=== PATIENT | female | born 1985 | race Caucasian/White ===

== ENCOUNTER 2016-06-28 10:49 | Outpatient (CLI) | payer MEDICAID | END 2016-06-28 10:50 | disposition home or self-care (01) | DX: O99.352 Diseases of the nervous system complicating pregnancy, second trimester (principal); Z3A.20 20 weeks gestation of pregnancy; G93.5 Compression of brain ==

== ENCOUNTER 2016-07-01 07:39 | Outpatient (CLI) | payer MEDICAID | END 2016-07-01 07:40 | disposition home or self-care (01) | DX: Z34.82 Encounter for supervision of other normal pregnancy, second trimester (principal) ==

== ENCOUNTER 2016-07-16 19:27 | Outpatient (CLI) | payer MEDICAID ==
[2016-07-16 20:00] VITALS: BP 107/70
[2016-07-16 20:58] LABS: BILIRUBIN,URINE NEGATIVE (NEGATIVE); PH,URINE 8.5 PH (5.0-7.5)
[2016-07-16 21:06] LABS: UR CULTURE IF IND NOT INDICATED; WBC,URINE 0-3 /HPF (0-5)
== END 2016-07-16 21:14 | disposition home or self-care (01) ==
LOC: WFO 19:27 → OB 19:29 → WFO 21:14
PROVIDERS: ATTEND Obstetrics & Gynecology
DX: Z34.82 Encounter for supervision of other normal pregnancy, second trimester (principal)
CPT/HCPCS: 81001; 87086; 99213

== ENCOUNTER 2016-08-06 | Outpatient (CLI) | payer MEDICAID | END 2016-08-06 17:51 | disposition critical access hospital (66) | CPT/HCPCS: A0425; A0429 ==

== ENCOUNTER 2016-08-06 10:07 | Outpatient (CLI) | payer MEDICAID | END 2016-08-06 10:08 | disposition home or self-care (01) | DX: Z36 Encounter for antenatal screening of mother (principal) ==

== ENCOUNTER 2016-08-06 18:06 | Observation (INO) | payer MEDICAID ==
[2016-08-06] MEDS ORDERED: SODIUM CHLORIDE 0.9% 1,000 ML IV ONE (18:46)
[2016-08-06] MEDS ORDERED: ONDANSETRON 4 MG/2 ML VIAL IVP STA (18:46)
[2016-08-06] MEDS ORDERED: ONDANSETRON 4 MG/2 ML VIAL ONE (18:51)
[2016-08-06] MEDS ORDERED: METOCLOPRAMIDE 10 MG/2 ML VIAL IVP STA (19:43)
[2016-08-06] MEDS ORDERED: ACETAMINOPHEN 325 MG TABLET PO STA (19:44)
[2016-08-06] MEDS ORDERED: METOCLOPRAMIDE 10 MG/2 ML VIAL IVP ONE (19:47)
[2016-08-06] MEDS ORDERED: LACTATED RINGERS 1,000 ML IV SCH (21:00)
[2016-08-06] MEDS ORDERED: ACETAMINOPHEN 325 MG TABLET PO PRN (22:10)
[2016-08-06] MEDS ORDERED: diphenhydrAMINE 25 MG CAPSULE PO PRN ×2 (22:11→22:23)
[2016-08-06] MEDS ORDERED: diphenhydrAMINE INJ 50 MG/ML VIAL IVP SCH (22:41)
[2016-08-06] MEDS ORDERED: ONDANSETRON 4 MG/2 ML VIAL IVP SCH (23:45)
[2016-08-06] MEDS ORDERED: SODIUM CHLORIDE FLUSH 0.9% 10 ML SYRINGE IVP ONE (23:48)
== END 2016-08-07 11:00 | disposition home or self-care (01) ==
DX: O99.342 Other mental disorders complicating pregnancy, second trimester (principal); F41.0 Panic disorder [episodic paroxysmal anxiety]; F43.10 Post-traumatic stress disorder, unspecified; F32.9 Major depressive disorder, single episode, unspecified; O21.2 Late vomiting of pregnancy; Z3A.25 25 weeks gestation of pregnancy; Z63.0 Problems in relationship with spouse or partner; Z91.419 Personal history of unspecified adult abuse; Z79.899 Other long term (current) drug therapy; Z36 Encounter for antenatal screening of mother
CPT/HCPCS: 36415; 80053; 80306; 80307; 80320; 80329; 81003; 82950; 83690; 85025; 85027; 86900; 86901; 96361; 96374; 96375; 96376; 99284; 99285; A9270; G0378

== ENCOUNTER 2016-08-13 09:06 | Outpatient (CLI) | payer MEDICAID | END 2016-08-13 09:07 | disposition home or self-care (01) | DX: A49.9 Bacterial infection, unspecified (principal) ==

== ENCOUNTER 2016-08-25 11:52 | Outpatient (CLI) | payer MEDICAID | END 2016-08-25 13:55 | disposition home or self-care (01) | DX: O47.03 False labor before 37 completed weeks of gestation, third trimester (principal); Z3A.28 28 weeks gestation of pregnancy ==

== ENCOUNTER 2016-08-27 09:24 | Outpatient (CLI) | payer MEDICAID | END 2016-08-27 09:25 | disposition home or self-care (01) | DX: R82.99 Other abnormal findings in urine (principal) ==

== ENCOUNTER 2016-09-24 17:18 | Emergency (ER) | payer MEDICAID ==
[2016-09-24] MEDS ORDERED: ACETAMINOPHEN 325 MG TABLET PO STA (19:48)
[2016-09-24] MEDS ORDERED: ACETAMINOPHEN 325 MG TABLET PO ONE (19:49)
== END 2016-09-24 21:06 | disposition home or self-care (01) ==
DX: O72.2 Delayed and secondary postpartum hemorrhage (principal)
CPT/HCPCS: 36415; 85025; 86850; 86900; 86901; 87070; 99283; 99284; A9270

== ENCOUNTER 2016-10-17 14:30 | Emergency (ER) | payer MEDICAID ==
[2016-10-17] MEDS ORDERED: ONDANSETRON 4 MG/2 ML VIAL IVP STA ×2 (15:58→17:47)
[2016-10-17] MEDS ORDERED: SODIUM CHLORIDE 0.9% 1,000 ML IV ONE (15:58)
[2016-10-17] MEDS ORDERED: ONDANSETRON 4 MG/2 ML VIAL ONE ×2 (16:47→17:47)
[2016-10-17] MEDS ORDERED: ACETAMINOPHEN 1,000 MG/100 ML 100 ML IV STA (16:55)
[2016-10-17] MEDS ORDERED: ACETAMINOPHEN 1,000 MG/100 ML 100 ML IV ONE (17:11)
[2016-10-17] MEDS ORDERED: PROMETHAZINE INJ 12.5 MG in SODIUM CHLORIDE 0.9% 50 ML IV STA (18:56)
[2016-10-17] MEDS ORDERED: PROMETHAZINE 25 MG/1 ML VIAL ONE (18:59)
[2016-10-17] MEDS ORDERED: diphenhydrAMINE INJ 50 MG/ML VIAL IVP STA (19:35)
[2016-10-17] MEDS ORDERED: HYDROmorphone 1 MG/ML SYRINGE IVP STA (19:36)
[2016-10-17] MEDS ORDERED: HYDROmorphone 1 MG/ML SYRINGE ONE (19:38)
[2016-10-17] MEDS ORDERED: diphenhydrAMINE INJ 50 MG/ML VIAL ONE (19:38)
[2016-10-17] MEDS ORDERED: MAG HYDROX/AL HYDROX/SIMETH 30 ML UDC PO STA (19:47)
[2016-10-17] MEDS ORDERED: MAG HYDROX/AL HYDROX/SIMETH 30 ML UDC ONE (19:50)
== END 2016-10-17 20:06 | disposition home or self-care (01) ==
DX: R11.2 Nausea with vomiting, unspecified (principal); R10.31 Right lower quadrant pain; G93.5 Compression of brain; Z87.11 Personal history of peptic ulcer disease
CPT/HCPCS: 36415; 76801; 76817; 80053; 81001; 81025; 83690; 84702; 85025; 96365; 96375; 96376; 99283; 99284; A9270; J0131; J1170

== ENCOUNTER 2016-10-21 12:54 | Emergency (ER) | payer MEDICAID ==
[2016-10-21] MEDS ORDERED: ONDANSETRON 4 MG/2 ML VIAL IVP STA ×2 (13:31→15:26)
[2016-10-21] MEDS ORDERED: SODIUM CHLORIDE 0.9% 1,000 ML IV ONE (13:31)
[2016-10-21] MEDS ORDERED: ONDANSETRON ODT 4 MG TABLET TL STA (13:31)
[2016-10-21] MEDS ORDERED: HYDROmorphone 1 MG/ML SYRINGE IVP STA (13:31)
[2016-10-21] MEDS ORDERED: diphenhydrAMINE INJ 50 MG/ML VIAL IVP STA (13:32)
[2016-10-21] MEDS ORDERED: ONDANSETRON ODT 4 MG TABLET ONE (13:43)
[2016-10-21] MEDS ORDERED: ONDANSETRON 4 MG/2 ML VIAL ONE ×2 (13:43→15:47)
[2016-10-21] MEDS ORDERED: oxyCOD/ACETAMIN 5 MG/325 MG TABLET PO STA (15:26)
[2016-10-21] MEDS ORDERED: LIDOCAINE VISCOUS 2% 15 ML UDC MM STA (15:26)
[2016-10-21] MEDS ORDERED: MAG HYDROX/AL HYDROX/SIMETH 30 ML UDC PO STA (15:26)
[2016-10-21] MEDS ORDERED: LIDOCAINE VISCOUS 2% 15 ML UDC MM ONE (15:47)
[2016-10-21] MEDS ORDERED: oxyCOD/ACETAMIN 5 MG/325 MG TABLET PO ONE (15:47)
[2016-10-21] MEDS ORDERED: MAG HYDROX/AL HYDROX/SIMETH 30 ML UDC ONE (15:48)
== END 2016-10-21 16:45 | disposition home or self-care (01) ==
DX: R11.2 Nausea with vomiting, unspecified (principal); R10.9 Unspecified abdominal pain; F12.10 Cannabis abuse, uncomplicated; Z87.11 Personal history of peptic ulcer disease
CPT/HCPCS: 36415; 74176; 80053; 81003; 81025; 83690; 84703; 85025; 96374; 96376; 99284; A9270; Q0162

== ENCOUNTER 2016-11-01 17:44 | Outpatient (CLI) | payer MEDICAID | END 2016-11-01 17:45 | disposition short-term general hospital (02) | LOC: EMS 17:44 | PROVIDERS: ATTEND Surgery | DX: R06.00 Dyspnea, unspecified (principal) | CPT/HCPCS: A0170; A0425; A0427 ==

== ENCOUNTER 2016-11-11 17:59 | Inpatient (IN) | payer MEDICAID ==
[2016-11-11] MEDS ORDERED: SODIUM CHLORIDE 0.9% 1,000 ML IV ONE ×2 (18:26→22:05)
[2016-11-11] MEDS ORDERED: diphenhydrAMINE INJ 50 MG/ML VIAL IVP STA ×2 (18:27→21:19)
[2016-11-11] MEDS ORDERED: ONDANSETRON 4 MG/2 ML VIAL IVP STA (18:27)
[2016-11-11] MEDS ORDERED: HYDROmorphone 1 MG/ML SYRINGE IVP STA ×2 (18:27→20:49)
--- NOTE | 2016-11-11 18:31 | ED Physician Documentation ---
PD HPI ABD PAIN - Stated complaint Stated Complaint: LWR ABD PX - Chief complaint Chief Complaint: Abd Pain - History obtained from History obtained from: Patient, Friend - History of Present Illness Timing - onset: Other (30-year-old with history of perforated peptic ulcer, I saw her last month for ulcer related abdominal pain, that was much better. 10 days ago had a laparoscopic tubal ligation. 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 tablet 10/17/1607/09 mg/325 mg] Metoclopramide [Reglan] 10 mg PO Q6H PRN #20 tablet 10/21/16 Ondansetron HCl [Zofran] 4 mg PO Q6H PRN #10 tablet 10/21/16 Oxycodone HCl/Acetaminophen 1 - 2 tab PO Q4H PRN #15 tablet 10/21/16 [Percocet 5-325 mg Tablet] Sucralfate 1 gm PO ACHS #40 tablet 10/21/16 raNITIdine [Zantac] 150 mg PO BID #30 tablet 10/21/16 - Allergies Allergies/Adverse Reactions: Allergies Allergy/AdvReac Type Severity Reaction Status Date / Time aspirin Allergy Severe Anaphylaxis Verified 10/21/16 13:02 gelatin Allergy Severe Respiratory Verified 10/21/16 13:02 hydromorphone HCl * Allergy Severe Hives Verified 10/21/16 13:02 [From Dilaudid] morphine Allergy Severe Hives Verified 10/21/16 13:02 nitrofurantoin Allergy Severe Respiratory Verified 10/21/16 13:02 macrocrystalline * [From Macrobid] amoxicillin Allergy Anaphylaxis Verified 10/21/16 13:02 cinnamon Allergy Unknown Verified 10/21/16 13:02 famotidine [From Pepcid] Allergy Anaphylaxis Verified 10/21/16 13:02 fentanyl Allergy Unknown Verified 10/21/16 13:02 fluconazole Allergy Hives Verified 10/21/16 13:02 meperidine HCl * Allergy Anaphylaxis Verified 10/21/16 13:02 [From Demerol] Nitrofuran Analogues Allergy Hives Verified 10/21/16 13:02 Penicillins Allergy Anaphylaxis Verified 10/21/16 13:02 tamsulosin HCl * Allergy Unknown Verified 10/21/16 13:02 [From Flomax] tramadol Allergy Hives Verified 10/21/16 13:02 wheat Allergy Hives Verified 10/21/16 13:02 hydrocodone [Hydrocodone] AdvReac Severe Emesis Verified 10/21/16 13:02 butorphanol AdvReac Intermediate Anxiety Verified 10/21/16 13:02 adhesive AdvReac Rash Verified 10/21/16 13:02 amoxicillin trihydrate * AdvReac Unknown Verified 10/21/16 13:02 [From Augmentin] fexofenadine AdvReac Edema Verified 10/21/16 13:02 NSAIDS (Non-Steroidal AdvReac Cramps Verified 10/21/16 13:02 Anti-Inflamma potassium clavulanate * AdvReac Unknown Verified 10/21/16 13:02 [From Augmentin] - Social History Does the pt smoke?: No Smoking Status: Never smoker Does the pt drink ETOH?: No Does the pt have substance abuse?: No - Immunizations Immunizations are current?: Yes - POLST Patient has POLST: No PD ED PE NORMAL - Vitals Vital signs reviewed: Yes - General General: Alert and oriented X 3, Other (histrionic) - HEENT HEENT: PERRL, EOMI - Neck Neck: Supple, no meningeal sign, No bony TTP - Cardiac Cardiac: RRR, No murmur - Respiratory Respiratory: No respiratory distress, Clear bilaterally - Abdomen Abdomen: Soft, Other (Screaming too much to appreciate bowel tones, it is soft with lower bowel tenderness.) - Back Back: No CVA TTP, No spinal TTP - Derm Derm: Normal color, Warm and dry, No rash - Extremities Extremities: No edema, No calf tenderness / cord - Neuro Neuro: Alert and oriented X 3, No motor deficit, No sensory deficit, Normal speech Results - Vitals Vitals: Vital Signs - 24 hr 11/11/16 11/11/16 11/11/16 18:09 19:58 21:11 Temperature 36.8 C Heart Rate 129 H 125 H 120 H Respiratory 17 22 22 Rate Blood Pressure 108/68 100/69 O2 Saturation 96 98 96 11/11/16 11/11/16 21:32 22:17 Temperature Heart Rate 140 H 124 H Respiratory 18 20 Rate Blood Pressure 104/65 114/63 O2 Saturation 99 96 Oxygen O2 Source Room air - Labs Labs: Laboratory Tests 11/11/16 11/11/16 11/11/16 18:15 18:15 18:15 WBC RBC Hgb Hct MCV MCH MCHC RDW Plt Count MPV Neut # Lymph # Eagle # Eos # Baso # Absolute Nucleated RBC Nucleated RBCs Manual Slide Review WBC Morphology Platelet Estimate Platelet Morphology RBC Morph Micro Appear Sodium Potassium Chloride Carbon Dioxide Anion Gap BUN Creatinine Estimated GFR (MDRD) Glucose Calcium Total Bilirubin AST ALT Alkaline Phosphatase Total Protein Albumin Globulin Albumin/Globulin Ratio Lipase Urine Color YELLOW Urine Clarity CLEAR Urine pH 7.0 Ur Specific Kamas 1.020 1.020 Urine Protein NEGATIVE Urine Glucose (UA) NEGATIVE Urine Ketones NEGATIVE Urine Occult Blood NEGATIVE Urine Nitrite NEGATIVE Urine Bilirubin NEGATIVE Urine Urobilinogen 0.2 (NORMAL) Ur Leukocyte Esterase NEGATIVE Ur Microscopic Review NOT INDICATED Urine Culture Comments NOT INDICATED Urine HCG, Qual NEGATIVE Urine Opiates Screen POSITIVE H Ur Oxycodone Screen POSITIVE H Urine Methadone Screen NEGATIVE Ur Propoxyphene Screen NEGATIVE Ur Barbiturates Screen NEGATIVE Ur Tricyclics Screen NEGATIVE Ur Phencyclidine Scrn NEGATIVE Ur Amphetamine Screen NEGATIVE U Methamphetamines Scrn NEGATIVE U Benzodiazepines Scrn NEGATIVE Urine Cocaine Screen NEGATIVE U Cannabinoids Screen NEGATIVE 11/11/16 11/11/16 18:24 19:39 WBC 8.0 RBC 4.69 Hgb 13.0 Hct 39.9 MCV 85.0 MCH 27.8 MCHC 32.6 RDW 14.9 Plt Count FLUXER MPV 10.2 Neut # 6.4 Lymph # 1.0 L Eagle # 0.4 Eos # 0.2 Baso # 0.1 Absolute Nucleated RBC 0.01 Nucleated RBCs 0.1 Manual Slide Review Indicated WBC Morphology NORMAL APPEARANCE Platelet Estimate NORMAL (130-450,000) Platelet Morphology PLATELET CLUMPING RBC Morph Micro Appear NORMAL APPEARANCE Sodium 137 Potassium 3.9 Chloride 103 Carbon Dioxide 26 Anion Gap 8.0 BUN 10 Creatinine 0.7 Estimated GFR (MDRD) 98 Glucose 100 Calcium 9.2 Total Bilirubin 0.7 AST 17 ALT 15 Alkaline Phosphatase 49 Total Protein 7.5 Albumin 4.6 Globulin 2.9 Albumin/Globulin Ratio 1.6 Lipase 25 Urine Color Urine Clarity Urine pH Ur Specific Kamas Urine Protein Urine Glucose (UA) Urine Ketones Urine Occult Blood Urine Nitrite Urine Bilirubin Urine Urobilinogen Ur Leukocyte Esterase Ur Microscopic Review Urine Culture Comments Urine HCG, Qual Urine Opiates Screen Ur Oxycodone Screen Urine Methadone Screen Ur Propoxyphene Screen Ur Barbiturates Screen Ur Tricyclics Screen Ur Phencyclidine Scrn Ur Amphetamine Screen U Methamphetamines Scrn U Benzodiazepines Scrn Urine Cocaine Screen U Cannabinoids Screen - Rads (name of study) CT abdomen and pelvis Radiology: EMP read contemporaneously (Negative) Procedures - General procedure General procedure: Peripheral IV: She was difficult for IV access, multiple nurses tried and failed. I personally placed a 20-gauge IV in the left forearm using a U/S guidance. That promptly infiltrated and a long 20g Iv was placed R deep brachial PD MEDICAL DECISION MAKING - ED course ED course: 30-year-old woman recently status post laparoscopic tubal ligation and presents now with a histrionic panic attack and lower abdominal pain with reported fever at home. CT and labs are all normal. She remained afebrile here. She was having a lot of anxiety symptoms which were helped with Benadryl. She has an IV contrast allergy which was pretreated with Benadryl as well, that has been done before in the past without issue. On returning she does have itching and felt like she needed epinephrine and this was administered. There was no oral pharyngeal angioedema on exam at that time. Note madeThat she is persistently and significantly tachycardic and despite an otherwise normal workup; this is concerning. The tachycardia did not respond IV fluids. Call to Dr. Holliday, the hospitalist for observation at 1015 p.m. She requested that we have a surgical consult given abd pain- I spoke with Dr Velasco who was in the OR apprx 1030pm, and he said he would see the pt. Departure - Departure Disposition: ED Place in Observation Clinical Impression: Abdominal pain, Tachycardia Condition: Stable Discharge Date/Time: 11/11/16 23:40
[2016-11-11 18:37] LABS: BILIRUBIN,URINE NEGATIVE (NEGATIVE)
[2016-11-11 18:40] LABS: UA CHARGE (STRIP ONLY) YES; UR CULTURE IF IND NOT INDICATED
[2016-11-11 18:50] LABS: HCG UR QUAL NEGATIVE
[2016-11-11] MEDS ORDERED: diphenhydrAMINE INJ 50 MG/ML VIAL ONE ×2 (19:31→21:22)
[2016-11-11] MEDS ORDERED: HYDROmorphone 1 MG/ML SYRINGE ONE ×2 (19:31→20:49)
[2016-11-11] MEDS ORDERED: ONDANSETRON 4 MG/2 ML VIAL ONE (19:31)
[2016-11-11 19:42] LABS: BASOPHILS # (AUTO) 0.1 10^3/uL (0.0-0.1); BASOPHILS % (AUTO) 0.8 %; EOSINOPHILS # (AUTO) 0.2 10^3/uL (0.0-0.7); EOSINOPHILS % (AUTO) 2.2 %; HCT - HEMATOCRIT 39.9 % (37.0-47.0); LYMPHOCYTES % (AUTO) 12.1 %; MEAN CORPUSCULAR HEMOGLOBIN 27.8 pg (27.0-31.0); MEAN CORPUSCULAR HGB CONC 32.6 g/dL (32.0-36.0); MONOCYTES # (AUTO) 0.4 10^3/uL (0.0-1.0); MONOCYTES % (AUTO) 5.1 %; NEUTROPHILS # (AUTO) 6.4 10^3/uL (1.5-6.6); NEUTROPHILS % (AUTO) 79.8 %; NUCLEATED RED BLOOD CELLS AUTO 0.1 /100WBC; RED BLOOD COUNT 4.69 10^6/uL (4.20-5.40); RED CELL DISTRIBUTION WIDTH 14.9 % (12.0-15.0)
[2016-11-11 20:27] LABS: ALBUMIN/GLOBULIN RATIO 1.6 (1.0-2.2); BILIRUBIN,TOTAL 0.7 mg/dL (0.2-1.0); CALCIUM 9.2 mg/dL (8.5-10.3); CREATININE 0.7 mg/dL (0.4-1.0); POTASSIUM 3.9 mmol/L (3.5-5.0); TOTAL PROTEIN 7.5 g/dL (6.7-8.2)
[2016-11-11 20:45] LABS: PLATELET MORPHOLOGY PLATELET CLUMPING (NORMAL)
[2016-11-11 20:47] LABS: MEAN PLATELET VOLUME 10.2 fL (7.9-10.8)
[2016-11-11] MEDS ORDERED: IOPAMIDOL-300 100 ML VIAL IVP ONE (20:47)
[2016-11-11 20:48] LABS: PLATELET ESTIMATE, MANUAL NORMAL (130-450,000) (NORMAL); WBC MORPHOLOGY (MULTIPLE) NORMAL APPEARANCE (NORMAL)
[2016-11-11] MEDS ORDERED: A & D OINTMENT 5 GM PACKET TOP ONE (20:55)
[2016-11-11] MEDS ORDERED: LORazepam 2 MG/ML SYRINGE IVP STA (21:02)
[2016-11-11] MEDS ORDERED: LORazepam 2 MG/ML SYRINGE ONE (21:04)
--- NOTE | 2016-11-11 21:05 | CT Preliminary Report ---
Exam: CT Abdomen/Pelvis W/ IMPRESSION: Postoperative changes of tubal ligation. No evidence of bowel obstruction or perforation. No hydronephrosis. [facility] SITE ID: [id number]
--- NOTE | 2016-11-11 21:07 | CT Report ---
EXAM: CT ABDOMEN AND PELVIS EXAM DATE: 11/11/2016 08:50 PM. CLINICAL HISTORY: IV only, low abd pain, 10 days s/p lab tubal. COMPARISONS: 10/21/2016. TECHNIQUE: Routine helical CT imaging was performed through the abdomen and pelvis. IV contrast: 100 mL Isovue 300. Enteric contrast: No. Reconstructions: Coronal and sagittal. In accordance with CT protocol optimization, one or more of the following dose reduction techniques w ere utilized for this exam: automated exposure control, adjustment of mA and/or KV based on patient s ize, or use of iterative reconstructive technique. FINDINGS: Lung Bases: Unremarkable. Liver: Normal. No masses. Gallbladder/Bile Ducts: Unremarkable. Spleen: Normal. Pancreas: Normal. Adrenal Glands: Normal. Kidneys: Bilateral cortical cysts. No hydronephrosis or nephrolithiasis. Peritoneal Cavity/Bowel: Normal. No free fluid, free air or adenopathy. No masses or acute inflammato ry process. Pelvic Organs: Tubal ligation clips are new from previous. 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 No pelvic adenopathy or free fluid is present. Vasculature: No aneurysms or other significant abnormality. Bones: No significant abnormality. Other: None. IMPRESSION: Postoperative changes of tubal ligation. No evidence of bowel obstruction or perforation. No hydronephrosis. [facility] Referring Provider Line: [phone] SITE ID: [id number]
[2016-11-11] MEDS ORDERED: EPINEPHrine 1 MG/ML AMP IM STA (21:19)
[2016-11-11] MEDS ORDERED: EPINEPHrine 1 MG/ML AMP ONE (21:22)
[2016-11-11] MEDS ORDERED: SODIUM CHLORIDE FLUSH 0.9% 10 ML SYRINGE IVP PRN (22:35)
[2016-11-11] MEDS ORDERED: ACETAMINOPHEN 325 MG TABLET PO PRN (22:35)
[2016-11-11] MEDS ORDERED: METOCLOPRAMIDE 10 MG TABLET PO PRN (22:51)
[2016-11-12] MEDS: SODIUM CHLORIDE 0.9% 1,000 ML IV SCH ×2 (01:38→12:41)
[2016-11-12] MEDS: oxyCOD/ACETAMIN 5 MG/325 MG TABLET PO PRN ×3 (01:38→12:14)
[2016-11-12] MEDS: ONDANSETRON 4 MG/2 ML VIAL IVP PRN ×2 (01:38→07:38)
[2016-11-12] MEDS: DICYCLOMINE 10 MG CAPSULE PO SCH ×4 (01:38→21:10)
[2016-11-12] MEDS: SUCRALFATE 1 GM/10 ML UDC PO SCH ×5 (01:52→21:10)
[2016-11-12 06:06] LABS: BASOPHILS % (AUTO) 0.7 %; EOSINOPHILS % (AUTO) 0.8 %; HCT - HEMATOCRIT 34.8 % (37.0-47.0); HGB - HEMOGLOBIN 11.3 g/dL (12.0-16.0); LYMPHOCYTES # (AUTO) 0.7 10^3/uL (1.5-3.5); LYMPHOCYTES % (AUTO) 14.9 %; MEAN CORPUSCULAR HEMOGLOBIN 27.8 pg (27.0-31.0); MEAN CORPUSCULAR HGB CONC 32.5 g/dL (32.0-36.0); MEAN CORPUSCULAR VOLUME 85.6 fL (81.0-99.0); MONOCYTES # (AUTO) 0.5 10^3/uL (0.0-1.0); MONOCYTES % (AUTO) 9.8 %; NEUTROPHILS # (AUTO) 3.4 10^3/uL (1.5-6.6); NEUTROPHILS % (AUTO) 73.8 %; NUCLEATED RED BLOOD CELLS AUTO 0.2 /100WBC; RED BLOOD COUNT 4.06 10^6/uL (4.20-5.40); RED CELL DISTRIBUTION WIDTH 15.1 % (12.0-15.0); UNCORRECTED WHITE BLOOD COUNT 4.6 x10^3/uL; WHITE BLOOD COUNT 4.6 x10^3/uL (4.8-10.8)
[2016-11-12 06:08] LABS: ALBUMIN/GLOBULIN RATIO 1.4 (1.0-2.2); BILIRUBIN,TOTAL 0.7 mg/dL (0.2-1.0); CALCIUM 8.2 mg/dL (8.5-10.3); CREATININE 0.6 mg/dL (0.4-1.0); POTASSIUM 3.7 mmol/L (3.5-5.0); TOTAL PROTEIN 5.9 g/dL (6.7-8.2)
--- NOTE | 2016-11-12 06:29 | HISTORY & PHYSICAL EXAMINATION ---
DATE OF ADMISSION: 11/11/2016 CHIEF COMPLAINT: Diffuse abdominal pain, intractable. HISTORY OF PRESENT ILLNESS: A 30-year-old female who is status post tubal ligation at [facility] about 10 days ago, laparoscopic. She has been having lower abdominal pain since that period of ti me with some nausea, has some vomiting, complains of fevers up to 102 degrees prior to admission. Den ies any chills. Also found to be tachycardic; however, pain is described as 8/10. She has a history o f appendectomy, status post tonsillectomy. Her primary care provider is none. Her evaluation in the emergency room includes CT of abdomen and pelvis which reveals postoperative ch anges tubal ligation, no evidence of bowel obstruction or perforation, no hydronephrosis noted. This was done with IV contrast only. Urine hCG is negative. UA does not reveal any acute abnormalities. Wh ite count is noted to be 8.0, with hematocrit of 39.9. Patient is a difficult historian due to her cr brannon in pain. PAST MEDICAL HISTORY: History of perforated peptic ulcer. History of laparoscopic tubal ligation 10 d ays ago. History of endometriosis. Status post appendectomy. Status post tonsillectomy. MEDICATIONS UPON ADMISSION 1. EpiPen 2 pack. 2. Omeprazole 20 mg p.o. daily. 3. Ondansetron 4 mg p.r.n. 4. Percocet 5/325 one to two tabs p.o. q.4h. p.r.n. 5. Reglan 10 mg p.o. q.i.d. 6. Sucralfate 1 gram p.o. q.i.d. 7. Ranitidine 150 mg p.o. b.i.d. ALLERGIES 1. ASPIRIN. 2. GELATIN. 3. HYDROMORPHONE. 4. MORPHINE. 5. MACROBID. 6. AMOXICILLIN. 7. CINNAMON. 8. FAMOTIDINE. 9. FENTANYL. 10. FLUCONAZOLE. 11. MEPERIDINE. 12. PENICILLIN. 13. FLOMAX. 14. TRAMADOL. 15. WHEAT. 16. HYDROCODONE. 17. BUTORPHANOL. 18. ADHESIVE. 19. FEXOFENADINE. 20. NSAIDS. REVIEW OF SYSTEMS: All other review of systems are reviewed and are negative except for as in HPI. FAMILY MEDICAL HISTORY: Asked and no history of abdominal issues. SOCIAL HISTORY: Smoking, none. Alcohol, None. PHYSICAL EXAMINATION VITAL SIGNS: Heart rate 124, blood pressure 114/63, respiratory rate 20, room air saturation 96%. CONSTITUTIONAL: A tearful female who appears in some pain distress. HEAD: Normocephalic, atraumatic. EYES: PERRLA-DC, EOMI. MOUTH: No lesions. NECK: No adenopathy. CHEST: Clear to auscultation. COR: Tachycardic. S1, S2 without murmur. ABDOMEN: Soft. There is diffuse tenderness. No rebound, no guarding noted. Bowel sounds are present. EXTREMITIES: No pedal edema. SKIN: No rashes. PSYCHIATRIC: The patient is anxious and tearful. NEUROLOGIC: Alert and oriented x3. Motor strength is intact bilaterally. LABORATORIES: As above, also to include white count 8.0, hematocrit 39.9, hemoglobin 13.0, platelets had clumping, 6.4 neutrophils. Urine tox is pending. Sodium 137, potassium 3.9, chloride 103, bicarbo ioana 26, BUN 10, creatinine 0.7, calculated GFR 98, glucose 100, calcium 9.2. Total bilirubin 0.7, T 17, ALT 15. Alkaline phosphatase 49, total protein 7.5, albumin 4.6, lipase 25. ASSESSMENT AND PLAN 1. Intractable abdominal pain, status post recent tubal ligation 10 days ago at [facility]. Recommend General Surgery consultation and/or Gynecology consultation, as unclear source of intractab le abdominal pain. Will give Zofran p.r.n. Will do Percocet p.r.n. Patient has significant allergies to multiple medications. Will recheck labs in a.m. and try Bentyl q.i.d. p.r.n. Monitor for fevers wh ile here. 2. Deep venous thrombosis prophylaxis. Will hold on subcutaneous anticoagulation pending General Armando tu consultation. TIME SPENT: 60 minutes. JOB #: [id number] EXT JOB #:[id number]
[2016-11-12] MEDS: SODIUM CHLORIDE FLUSH 0.9% 10 ML SYRINGE IVP SCH ×3 (06:38→21:11)
[2016-11-12] MEDS: PANTOPRAZOLE 40 MG TABLET PO SCH (06:41)
[2016-11-12] MEDS ORDERED: fentaNYL 100 MCG/2 ML VIAL IVP PRN (10:00)
[2016-11-12] MEDS: diphenhydrAMINE INJ 50 MG/ML VIAL IVP SCH ×3 (10:04→21:10)
--- NOTE | 2016-11-12 11:13 | Ultrasound Report ---
ABDOMINAL ULTRASOUND: 11/12/2016 TECHNIQUE: Real-time scanning was performed with novelties sales representative static images obtained. FINDINGS: Liver appears normal. Liver length is 16.8 cm. Portal vein shows normal hepatopetal flow . There is a small amount of noncomplex fluid noted immediately posterior to the gallbladder. Gallb ladder demonstrates some mild nonspecific thickening of its posterior wall. Posterior wall of the ga llbladder measures 5 mm and is mildly hyperechoic. These findings of fluid adjacent to the gallbladd er as well as mild gallbladder wall thickening without evidence of gallbladder calculi are nonspecifi c. If there is strong clinical concern in regard to developing acalculousacalculous cholecystitis, a dditional studies that could be obtained include a HIDA nuclear medicine scan with ejection fraction and/or a repeat gallbladder ultrasound in 24-48 hours. HIDA nuclear medicine scan with ejection frac tion can be falsely positive in postoperative patients on pain medication. Common bile duct measures 3.8 mm. This is within normal limits. Pancreas appears normal. Right kidney measures 10.7 cm in length. Left kidney measures 10 cm in length. Right kidney shows n o pyelocaliceal cyst and dilatation. Left kidney demonstrates some minimal dilatation of its pyeloca liceal system. This is a nonspecific finding. On yesterday's CT exam of the abdomen and pelvis, there was no significant ureteral dilatation and on ly minor dilatation of the left pyelocaliceal system. The patient in retrospect did have a 2 mm calc ulus noted adjacent to the inferior pole calyx of the left kidney. Spleen is within normal limits. Pelvis shows no free fluid. Uterus shows no fluid within its central intrauterine cavity. On axial images of the uterus, there appears to be two central intrauterine cavities at least in the mid to fu ndal area which suggests the possibility of a septated uterus. No enhanced vascular flow is seen in the myometrium or endometrium of the uterus. IMPRESSION: 1. SMALL AMOUNT OF FREE FLUID IS NOTED SILHOUETTING THE POSTERIOR WALL OF THE GALLBLADDER. THE POST ERIOR WALL OF THE GALLBLADDER SHOWS MILD THICKENING. NO GALLBLADDER CALCULI ARE SEEN. THESE FINDING S ARE NONSPECIFIC. IF THERE IS STRONG CLINICAL CONCERN IN REGARD TO DEVELOPING ACALCULOUS CHOLECYSTI TIS, ADDITIONAL STUDIES SUCH A HIDA NUCLEAR MEDICINE SCAN WITH EJECTION FRACTION AND/OR REPEAT GAL LBLADDER ULTRASOUND IN 24-48 HOURS COULD BE OBTAINED FOR FURTHER EVALUATION. IT SHOULD BE NOTED THAT HIDA NUCLEAR MEDICINE SCAN WITH EJECTION FRACTION CAN HAVE A FALSE POSITIVE EJECTION FRACTION IN POS TOPERATIVE PATIENTS ON PAIN MEDICATION. 2. CONFIGURATION OF THE UTERUS SUGGESTS A DEVELOPMENTAL ANOMALY OF AN ARCUATE OR SEPTATED UTERUS. JOB #: [id number] EXT JOB #:[id number]
[2016-11-12] MEDS: POLYETHYLENE GLYCOL 3350 17 GM PACKET PO SCH (12:15)
--- NOTE | 2016-11-12 12:20 | PROVIDER PROGRESS NOTE ---
Assessment/Plan - Problem List (1) Abdominal pain Assessment/Plan: 30 yo female with abdominal pain worse in suprapubic/groin area exact etiology not clear 1. Recommend [employer] consult for possible [employer] origin- recent tubal ligation, hx of endometriosis 2. Recommend HIDA scan for US findings of possible acalculous cholecystitis and radiology recommends possibly repeat US in 48 hours Medical management as per primary care team Surgery will continue to follow - Current Meds Current Meds: Current Medications Generic Name Dose Route Start Last Admin Trade Name Freq PRN Reason Stop Dose Admin Dicyclomine HCl 10 mg 11/11/16 23:00 11/12/16 11:25 Bentyl PO Not Given QID SAMANTA Diphenhydramine HCl 25 mg 11/12/16 10:00 11/12/16 10:04 Benadryl Inj IVP 25 mg Q6H SAMANTA Administration Sodium Chloride 1,000 mls @ 100 mls/hr 11/11/16 23:00 11/12/16 01:38 Normal Saline 0.9% IV 100 mls/hr .Q10H SAMANTA Administration Ondansetron HCl 4 mg 11/11/16 22:35 11/12/16 07:38 Zofran Inj IVP 4 mg Q6HR PRN Administration Nausea / Vomiting Oxycodone/Acetaminophen 1 tab 11/11/16 22:51 11/12/16 07:38 Percocet 5 Mg/325 Mg PO 1 tab Q4H PRN Administration PAIN Pantoprazole Sodium 40 mg 11/12/16 07:00 11/12/16 06:41 Protonix PO 40 mg QDAC SAMANTA Administration Ranitidine HCl 150 mg 11/11/16 23:00 11/12/16 01:38 Zantac PO 150 mg BID SAMANTA Administration Sodium Chloride 10 ml 11/11/16 22:35 11/12/16 01:39 Normal Saline Flush 0.9% IVP 10 ml PRN PRN Administration NEEDED PER PROVIDER ORDERS Sodium Chloride 10 ml 11/12/16 06:00 11/12/16 11:25 Normal Saline Flush 0.9% IVP Not Given Q8HR SAMANTA Sucralfate 1 gm 11/11/16 23:00 11/12/16 06:41 Carafate PO 1 gm ACHS SAMANTA Administration - Lab Result Fish Bone Diagrams: 11/12/16 05:22 11/12/16 05:22 - Diagnostic Imaging Results Diagnostic Imaging Results: positive: Prelim report reviewed (11/12/16 US showed smal amount of PCCF, and mild posterior wall thickness, no stones noted, CBD 3.8mm. 2. Arcuate or Septated uterus) - Additional Planning Condition/Complexity: Guarded Plan Discussed with:: Patient Time Spent: 15-30 minutes Subjective - Subjective Patient Reports: Abdominal Pain (Patient seen at bedside. C/O of B/Lsuprapubic / groin pain and left LLQ pain. she states the pain medication is helping somewhat, and that she can't keep anything down. No othe revents reported) Nursing Reports: No Complaints Objective Vital Signs: Vital Signs - 24 hr 11/11/16 11/12/16 11/12/16 23:29 00:13 04:35 Temperature 37.1 C 36.6 C Heart Rate 121 H Heart Rate [ Brachial] Heart Rate [ 118 H 83 Radial] Respiratory 24 24 18 Rate Blood Pressure 120/69 Blood Pressure 103/71 95/60 [Left Brachial artery] O2 Saturation 100 98 96 11/12/16 11/12/16 08:06 12:02 Temperature 36.9 C 36.5 C Heart Rate Heart Rate [ 82 73 Brachial] Heart Rate [ Radial] Respiratory 19 18 Rate Blood Pressure Blood Pressure 91/45 L 96/65 [Left Brachial artery] O2 Saturation 97 97 Oxygen O2 Source Room air I&O (Last 24 Hrs): Intake and Output Totals x24h 11/10/16 11/11/16 11/12/16 23:59 23:59 23:59 Intake Total 489 Output Total 550 Balance -61 General: Alert, Oriented x3 HEENT: Atraumatic Neck: Supple Neuro: Alert Cardiovascular: Regular rate Respiratory: Chest non-tender, No respiratory distress, Breath sounds nml Abdomen: Normal bowel sounds (+ BS, soft Non-distended, no rebound, no guarding. TTP suprapubic area and LLQ. Negative Bernal's. Negative Heel Jar test.), Soft Extremities: No clubbing - Results Results: Laboratory Results WBC 4.6 x10^3/uL (4.8-10.8) L 11/12/16 05:22 RBC 4.06 10^6/uL (4.20-5.40) L 11/12/16 05:22 Hgb 11.3 g/dL (12.0-16.0) L 11/12/16 05:22 Hct 34.8 % (37.0-47.0) L 11/12/16 05:22 MCV 85.6 fL (81.0-99.0) 11/12/16 05:22 MCH 27.8 pg (27.0-31.0) 11/12/16 05:22 MCHC 32.5 g/dL (32.0-36.0) 11/12/16 05:22 RDW 15.1 % (12.0-15.0) H 11/12/16 05:22 Plt Count 199 10^3/uL (130-450) 11/12/16 05:22 MPV 10.0 fL (7.9-10.8) 11/12/16 05:22 Neut # 3.4 10^3/uL (1.5-6.6) 11/12/16 05:22 Lymph # 0.7 10^3/uL (1.5-3.5) L 11/12/16 05:22 [place] # 0.5 10^3/uL (0.0-1.0) 11/12/16 05:22 Eos # 0.0 10^3/uL (0.0-0.7) 11/12/16 05:22 Baso # 0.0 10^3/uL (0.0-0.1) 11/12/16 05:22 Absolute Nucleated RBC 0.01 x10^3/uL 11/12/16 05:22 Nucleated RBCs 0.2 /100WBC 11/12/16 05:22 Manual Slide Review Indicated 11/11/16 18:24 WBC Morphology NORMAL APPEARANCE (NORMAL) 11/11/16 18:24 Platelet Estimate NORMAL (130-450,000) (NORMAL) 11/11/16 18:24 Platelet Morphology PLATELET CLUMPING (NORMAL) 11/11/16 18:24 RBC Morph Micro Appear NORMAL APPEARANCE (NORMAL) 11/11/16 18:24 Sodium 139 mmol/L (135-145) 11/12/16 05:22 Potassium 3.7 mmol/L (3.5-5.0) 11/12/16 05:22 Chloride 108 mmol/L (101-111) 11/12/16 05:22 Carbon Dioxide 25 mmol/L (21-32) 11/12/16 05:22 Anion Gap 6.0 (6-13) 11/12/16 05:22 BUN 5 mg/dL (6-20) L 11/12/16 05:22 Creatinine 0.6 mg/dL (0.4-1.0) 11/12/16 05:22 Estimated GFR (MDRD) 117 (>89) 11/12/16 05:22 Glucose 94 mg/dL (70-100) 11/12/16 05:22 Calcium 8.2 mg/dL (8.5-10.3) L 11/12/16 05:22 Total Bilirubin 0.7 mg/dL (0.2-1.0) 11/12/16 05:22 AST 13 IU/L (10-42) 11/12/16 05:22 ALT 12 IU/L (10-60) 11/12/16 05:22 Alkaline Phosphatase 42 IU/L (42-121) 11/12/16 05:22 Total Protein 5.9 g/dL (6.7-8.2) L 11/12/16 05:22 Albumin 3.4 g/dL (3.2-5.5) 11/12/16 05:22 Globulin 2.5 g/dL (2.1-4.2) 11/12/16 05:22 Albumin/Globulin Ratio 1.4 (1.0-2.2) 11/12/16 05:22 Lipase 25 U/L (22-51) 11/11/16 19:39 Urine Color YELLOW 11/11/16 18:15 Urine Clarity CLEAR (CLEAR) 11/11/16 18:15 Urine pH 7.0 PH (5.0-7.5) 11/11/16 18:15 Ur Specific [place] 1.020 (1.002-1.030) 11/11/16 18:15 Urine Protein NEGATIVE mg/dL (NEGATIVE) 11/11/16 18:15 Urine Glucose (UA) NEGATIVE mg/dL (NEGATIVE) 11/11/16 18:15 Urine Ketones NEGATIVE mg/dL (NEGATIVE) 11/11/16 18:15 Urine Occult Blood NEGATIVE (NEGATIVE) 11/11/16 18:15 Urine Nitrite NEGATIVE (NEGATIVE) 11/11/16 18:15 Urine Bilirubin NEGATIVE (NEGATIVE) 11/11/16 18:15 Urine Urobilinogen 0.2 (NORMAL) E.U./dL (NORMAL) 11/11/16 18:15 Ur Leukocyte Esterase NEGATIVE (NEGATIVE) 11/11/16 18:15 Ur Microscopic Review NOT INDICATED 11/11/16 18:15 Urine Culture Comments NOT INDICATED 11/11/16 18:15 Urine HCG, Qual NEGATIVE 11/11/16 18:15 Urine Opiates Screen POSITIVE (NEGATIVE) H 11/11/16 18:15 Ur Oxycodone Screen POSITIVE (NEGATIVE) H 11/11/16 18:15 Urine Methadone Screen NEGATIVE (NEGATIVE) 11/11/16 18:15 Ur Propoxyphene Screen NEGATIVE (NEGATIVE) 11/11/16 18:15 Ur Barbiturates Screen NEGATIVE (NEGATIVE) 11/11/16 18:15 Ur Tricyclics Screen NEGATIVE (NEGATIVE) 11/11/16 18:15 Ur Phencyclidine Scrn NEGATIVE (NEGATIVE) 11/11/16 18:15 Ur Amphetamine Screen NEGATIVE (NEGATIVE) 11/11/16 18:15 U Methamphetamines Scrn NEGATIVE (NEGATIVE) 11/11/16 18:15 U Benzodiazepines Scrn NEGATIVE (NEGATIVE) 11/11/16 18:15 Urine Cocaine Screen NEGATIVE (NEGATIVE) 11/11/16 18:15 U Cannabinoids Screen NEGATIVE (NEGATIVE) 11/11/16 18:15 Ethyl Alcohol < 5.0 mg/dL 11/12/16 00:00 - Procedures Procedures: Procedures INSERTION OF ENDOTRACHEAL AIRWAY INTO TRACHEA, VIA OPENING (03/06/16) LAPAROSCOP LYSIS-PERITONEAL ADHES (07/14/13) LAPAROSCOP LYSIS-PERIVESICAL ADHES (07/14/13) OTH METATARS/TARS INCIS (05/05/14) OTHER ENDOSCOPY OF SM INTEST (04/02/13) OTHER PLASTIC OPS TENDON (05/05/14) RELEASE PERITONEUM, PERCUTANEOUS ENDOSCOPIC APPROACH (03/06/16) REMOVAL IUD (11/04/12) RESPIRATORY VENTILATION, LESS THAN 24 CONSECUTIVE HOURS (03/06/16)
--- NOTE | 2016-11-12 12:23 | PROVIDER PROGRESS NOTE ---
Subjective - Prog Note Date Prog Note Date: 11/12/16 (followup for pelvic and abdominal pain) Prog Note Time: 12:22 - Subjective Pt reports feeling: Worse Subjective: Patient seen at bedside. She continues to have diffuse abdominal pain 9/10 with vomiting and nausea. She is having chills and sweating. She recently had a tubal ligation 10 days ago in [place] and now comes in with diffuse abdominal pain and uncontrollable nausea and vomiting. She takes percocet for the pain. She has been coming to the ER for pain medication x 3 since the of her son 2 months ago. She admits that she comes in to get pain medication when she runs out. She has been out for a couple days. She denies chest pain or shortness of breath. She admits to vomiting, nausea and abdominal pain. She denies hematuria or dysuria. She has anxiety and tremors. She is receiving IVF NS at this time Current Medications - Current Medications Current Medications: Active Medications Generic Name Dose Route Start Last Admin Trade Name Freq PRN Reason Stop Dose Admin Acetaminophen 650 mg 11/11/16 22:35 Tylenol PO Q4HR PRN Pain 1 to 4 Dicyclomine HCl 10 mg 11/11/16 23:00 11/12/16 12:15 Bentyl PO 10 mg QID SAMANTA Administration Diphenhydramine HCl 25 mg 11/12/16 10:00 11/12/16 17:00 Benadryl Inj IVP 25 mg Q6H SAMANTA Administration Sodium Chloride 1,000 mls @ 100 mls/hr 11/11/16 23:00 11/12/16 12:41 Normal Saline 0.9% IV 100 mls/hr .Q10H SAMANTA Administration Promethazine HCl 25 mg/ Sodium 51 mls @ 100 mls/hr 11/12/16 13:27 11/12/16 17: 00 Chloride IV 100 mls/hr Q6H PRN Administration Nausea / Vomiting Metoclopramide HCl 10 mg 11/11/16 22:51 Reglan PO Q6H PRN Nausea / Vomiting Ondansetron HCl 4 mg 11/11/16 22:35 11/12/16 07:38 Zofran Inj IVP 4 mg Q6HR PRN Administration Nausea / Vomiting Oxycodone/Acetaminophen 1 tab 11/11/16 22:51 11/12/16 12:14 Percocet 5 Mg/325 Mg PO 1 tab Q4H PRN Administration PAIN Pantoprazole Sodium 40 mg 11/12/16 07:00 11/12/16 06:41 Protonix PO 40 mg QDAC SAMANTA Administration Polyethylene Glycol 17 gm 11/12/16 09:00 11/12/16 12:15 Miralax PO Not Given DAILY SAMANTA Ranitidine HCl 150 mg 11/11/16 23:00 11/12/16 12:15 Zantac PO 150 mg BID SAMANTA Administration Sodium Chloride 10 ml 11/11/16 22:35 11/12/16 01:39 Normal Saline Flush 0.9% IVP 10 ml PRN PRN Administration NEEDED PER PROVIDER ORDERS Sodium Chloride 10 ml 11/12/16 06:00 11/12/16 11:25 Normal Saline Flush 0.9% IVP Not Given Q8HR SAMANTA Sucralfate 1 gm 11/11/16 23:00 11/12/16 17:00 Carafate PO 1 gm ACHS SAMANTA Administration Sucralfate 1 gm PO AC 11/12/16 Objective - Vital Signs/Intake & Output Reviewed Vital Signs: Yes Vital Signs: Vital Signs x48h Temp Pulse Pulse Resp BP Pulse Ox 11/12/16 12:02 36.5 C 73 18 96/65 97 11/12/16 08:06 36.9 C 82 19 91/45 L 97 11/12/16 04:35 36.6 C 83 18 95/60 96 Intake & Output: Intake & Output 11/09/16 11/10/16 11/11/16 11/12/16 23:59 23:59 23:59 23:59 Intake Total 489 Output Total 550 Balance -61 - Objective General Appearance: positive: Alert, Mild distress, Anxious Eyes Bilateral: positive: PERRL ENT: positive: Pharynx nml, Dry mucous membranes Neck: positive: Thyroid nml, No JVD, Trachea midline Respiratory: positive: No respiratory distress, Breath sounds nml Cardiovascular: positive: No murmur, No gallop, Tachycardia. negative: JVD present Peripheral Pulses: 2+ Radial (R), 2+ Radial (L) Abdomen: positive: No organomegaly, Tenderness, Guarding, Rebound Rectal: negative: Black stool Back: negative: CVA tenderness (R), CVA tenderness (L) Skin: positive: Color nml, No rash, Warm, Dry Extremities: positive: Full ROM, Nml appearance Neurologic/Psychiatric: positive: CN's nml (2-12), Motor nml, Sensation nml - Lab Results Fish Bones: 11/12/16 05:22 11/12/16 05:22 Other Labs: Lab Results x24hrs 11/12/16 11/12/16 11/12/16 Range/Units 05:22 05:22 00:00 WBC 4.6 L (4.8-10.8) x10^3/uL RBC 4.06 L (4.20-5.40) 10^6/uL Hgb 11.3 L (12.0-16.0) g/dL Hct 34.8 L (37.0-47.0) % MCV 85.6 (81.0-99.0) fL MCH 27.8 (27.0-31.0) pg MCHC 32.5 (32.0-36.0) g/dL RDW 15.1 H (12.0-15.0) % Plt Count 199 (130-450) 10^3/uL MPV 10.0 (7.9-10.8) fL Neut # 3.4 (1.5-6.6) 10^3/uL Lymph # 0.7 L (1.5-3.5) 10^3/uL [place] # 0.5 (0.0-1.0) 10^3/uL Eos # 0.0 (0.0-0.7) 10^3/uL Baso # 0.0 (0.0-0.1) 10^3/uL Absolute Nucleated RBC 0.01 x10^3/uL Nucleated RBCs 0.2 /100WBC Sodium 139 (135-145) mmol/L Potassium 3.7 (3.5-5.0) mmol/L Chloride 108 (101-111) mmol/L Carbon Dioxide 25 (21-32) mmol/L Anion Gap 6.0 (6-13) BUN 5 L (6-20) mg/dL Creatinine 0.6 (0.4-1.0) mg/dL Estimated GFR (MDRD) 117 (>89) Glucose 94 (70-100) mg/dL Calcium 8.2 L (8.5-10.3) mg/dL Total Bilirubin 0.7 (0.2-1.0) mg/dL AST 13 (10-42) IU/L ALT 12 (10-60) IU/L Alkaline Phosphatase 42 (42-121) IU/L Total Protein 5.9 L (6.7-8.2) g/dL Albumin 3.4 (3.2-5.5) g/dL Globulin 2.5 (2.1-4.2) g/dL Albumin/Globulin Ratio 1.4 (1.0-2.2) Ethyl Alcohol < 5.0 mg/dL - Diagnostic Imaging Diagnostic Imaging Results: positive: Prelim report reviewed, See rad report - Other Results/Comments Other Results/Comments: Pending results from transvaginal ultrasound. Abdomen complete showed some fluid aroung the gallbladder and to correlate with symptoms and possible hydi scan as well. Assessment/Plan - Problem List (1) Percocet use disorder, mild, in controlled environment, abuse Impression: ongong. patient has been using percocet after the of her first child about 10 weeks ago. She has been seen in the ER 3 times and each time has run out and come in with the same symptoms of pain. possible that the stomach pain is related to percocet withdrawal. Patient admits that after a day without it she gets symptoms of abdominalpain, vomiting and nausea. will give ativan for withdrawal and hydrate with IVF NS and banana bag x1. monitor electrolytes daily. counseling or management of chronic pain (2) Vomiting without nausea, intractable Impression: ongoing. phenergan IV in NS and zofran for nausea. IVF for hydration. monitor electrolytes Qualifiers: Vomiting type: cyclical vomiting Qualified Code(s): G43.A1 - Cyclical vomiting, intractable (3) Anxiety disorder affecting , antepartum Impression: ongoing. patient had end of at 30 weeks with baby in NICU. She has severe anxiety along with mild depression, unspecified. Ativan and xanax as needed. outpatient counseling for anxiety issues are recommended. (4) Tachycardia Impression: ogoing. IVF for hydration and telemetry monitoring. possibly withdrawal reaction. EKG ordered. (5) Gastric inflammation Impression: ongoing. continue with ativan and CRP checked and elevated at 2.8. solumedrol 125mg IV given. will continue to monitor CBC and avoid inflammation in diet. Qualifiers: Gastritis type: unspecified gastritis Chronicity: acute Gastritis bleeding: without bleeding Qualified Code(s): K29.00 - Acute gastritis without bleeding (6) Abdominal pain Impression: ongoing. ultrasound of abdomen and transvaginal ordered. OB consult. surgical consult. Time spent with patient was 45 minutes for planning, assessment and education. She will require another 24-48 hours for additional diagnostics and IV medication with high risk for toxicity. Qualifiers: Abdominal location: generalized Qualified Code(s): R10.84 - Generalized abdominal pain
[2016-11-12] MEDS ORDERED: MORPHINE 2 MG/ML SYRINGE IVP PRN (12:24)
[2016-11-12 12:48] LABS: AMYLASE 37 U/L (28-100); LIPASE 21 U/L (22-51)
[2016-11-12] MEDS ORDERED: LORazepam 2 MG/ML SYRINGE IVP PRN (13:29)
[2016-11-12] MEDS ORDERED: LORazepam 2 MG/ML SYRINGE IVP ONE (14:00)
[2016-11-12] MEDS ORDERED: methylPREDNISolone SUCCINATE 125 MG/2 ML VIAL IVP ONE (14:00)
[2016-11-12] MEDS: PROMETHAZINE INJ 25 MG in SODIUM CHLORIDE 0.9% 50 ML IV PRN (17:00)
--- NOTE | 2016-11-12 18:38 | Ultrasound Report ---
TRANSABDOMINAL AND TRANSVAGINAL PELVIC ULTRASOUND: 11/12/2016 CLINICAL HISTORY: Pelvic pain and septated uterus. Patient is postop tubal ligation. TECHNIQUE: Transabdominal pelvic ultrasound performed for global evaluation. Transvaginal pelvic ultrasound performed for detailed evaluation. Real-time scanning performed and static images obtained. FINDINGS: Uterus measures 10.2 cm by 4.3 cm by 9.2 cm. Uterus is complete septate with two central intrauterine cavities. Both of these cavities show no free fluid within them. Each central intrauterine cavity has an AP diameter of 0.76 cm to 1 cm. The central intrauterine cavity stripe appears prominent but within normal limits for a menstruating female. No enhanced vascular flow is seen in the central intrauterine cavity. Only a small amount of free fluid is detected in the pelvis. There was a small noncomplex collection of fluid in the cul-de-sac. An attempt was made to scan the adnexa transvaginally but patient was too tender to allow adequate visualization of the adnexa by transvaginal ultrasound. Transabdominal ultrasound showed no obvious adnexal abnormality on earlier scan today. IMPRESSION: 1. COMPLETELY SEPTATED UTERUS IS NOTED. UTERUS IS OTHERWISE NORMAL. 2. ADNEXA COULD NOT BE OPTIMALLY VISUALIZED. PATIENT WAS TOO TENDER TO ALLOW ADEQUATE VISUALIZATION OF THE ADNEXA WITH TRANSVAGINAL ULTRASOUND. 3. SMALL AMOUNT OF NONCOMPLEX FREE FLUID IS DETECTED IN THE CUL-DE-SAC. JOB #: [id number] EXT JOB #: [id number] REZA
[2016-11-13] MEDS: oxyCOD/ACETAMIN 5 MG/325 MG TABLET PO PRN ×2 (02:28→07:41)
[2016-11-13] MEDS: SODIUM CHLORIDE 0.9% 1,000 ML IV SCH ×2 (02:32→04:53)
[2016-11-13] MEDS: diphenhydrAMINE INJ 50 MG/ML VIAL IVP SCH (04:53)
[2016-11-13] MEDS: ONDANSETRON 4 MG/2 ML VIAL IVP PRN (04:53)
[2016-11-13] MEDS: SUCRALFATE 1 GM/10 ML UDC PO SCH ×4 (06:52→20:34)
[2016-11-13] MEDS: SODIUM CHLORIDE FLUSH 0.9% 10 ML SYRINGE IVP SCH ×2 (06:52→14:20)
[2016-11-13] MEDS: PANTOPRAZOLE 40 MG TABLET PO SCH (06:52)
[2016-11-13] MEDS: PROMETHAZINE INJ 25 MG in SODIUM CHLORIDE 0.9% 50 ML IV PRN (07:52)
[2016-11-13] MEDS ORDERED: diphenhydrAMINE 25 MG CAPSULE PO PRN (07:55)
[2016-11-13] MEDS ORDERED: ALPRAZolam 0.25 MG TABLET PO PRN (07:55)
[2016-11-13] MEDS ORDERED: methylPREDNISolone SUCCINATE 40 MG/ML VIAL IVP SCH ×2 (08:00→15:00)
[2016-11-13] MEDS: ALPRAZolam 0.25 MG TABLET PO SCH ×2 (08:10→20:34)
--- NOTE | 2016-11-13 08:31 | PROVIDER PROGRESS NOTE ---
Assessment/Plan - Problem List (1) Abdominal pain Assessment/Plan: 30 yo female with recent tubal ligation, hx of emergent , endometriosis , nephrolithiasis, presents with continued abdominal pain Unclear etiology HIDA pending Irrigation Flume Layer consult Primary medical team managing workup Surgery will follow. - Current Meds Current Meds: Current Medications Generic Name Dose Route Start Last Admin Trade Name Freq PRN Reason Stop Dose Admin Alprazolam 0.5 mg 11/13/16 09:00 11/13/16 08:10 Xanax PO 0.5 mg BID SAMANTA Administration Dicyclomine HCl 10 mg 11/11/16 23:00 11/12/16 21:10 Bentyl PO 10 mg QID SAMANTA Administration Sodium Chloride 1,000 mls @ 100 mls/hr 11/11/16 23:00 11/13/16 04:53 Normal Saline 0.9% IV 100 mls/hr .Q10H SAMANTA Administration Polyethylene Glycol 17 gm 11/12/16 09:00 11/12/16 12:15 Miralax PO Not Given DAILY SAMANTA Ranitidine HCl 150 mg 11/11/16 23:00 11/12/16 21:10 Zantac PO 150 mg BID SAMANTA Administration Sodium Chloride 10 ml 11/11/16 22:35 11/12/16 01:39 Normal Saline Flush 0.9% IVP 10 ml PRN PRN Administration NEEDED PER PROVIDER ORDERS Sodium Chloride 10 ml 11/12/16 06:00 11/13/16 06:52 Normal Saline Flush 0.9% IVP Not Given Q8HR SAMANTA Sucralfate 1 gm 11/11/16 23:00 11/13/16 06:52 Carafate PO 1 gm ACHS SAMANTA Administration - Lab Result Lab results reviewed: Yes Fish Bone Diagrams: 11/12/16 05:22 11/12/16 05:22 - Diagnostic Imaging Results Diagnostic Imaging Results: positive: Final report reviewed - Additional Planning Condition/Complexity: Guarded Time Spent: 15-30 minutes Subjective - Subjective Patient Reports: Abdominal Pain (Pt seen at bedside, she continues to have abdominal pain across the lower abdomen supra pubic area. She states that she still has nausea and will vomit if she tries to eat. SHe states that she can't ambulate because she will have to walk hunched over. Denies SOB. No events reported by RN) Objective Vital Signs: Vital Signs - 24 hr 11/12/16 11/12/16 11/12/16 12:02 16:45 20:50 Temperature 36.5 C 36.7 C 36.7 C Heart Rate [ 73 95 80 Brachial] Respiratory 18 18 18 Rate Blood Pressure 96/65 94/60 96/63 [Left Brachial artery] Blood Pressure [Right Brachial artery] O2 Saturation 97 97 97 11/12/16 11/13/16 11/13/16 23:35 04:42 06:16 Temperature 36.6 C 36.3 C L Heart Rate [ 87 66 69 Brachial] Respiratory 18 16 Rate Blood Pressure 90/56 L 83/43 L 91/52 L [Left Brachial artery] Blood Pressure 85/45 L [Right Brachial artery] O2 Saturation 97 97 11/13/16 07:35 Temperature 36.6 C Heart Rate [ 68 Brachial] Respiratory 16 Rate Blood Pressure [Left Brachial artery] Blood Pressure 91/55 L [Right Brachial artery] O2 Saturation 97 Oxygen O2 Source Room air I&O (Last 24 Hrs): Intake and Output Totals x24h 11/11/16 11/12/16 11/13/16 23:59 23:59 23:59 Intake Total 1279 707 Output Total 1000 850 Balance 279 -143 General: Oriented x3 HEENT: EOMI Respiratory: Breath sounds nml Abdomen: Normal bowel sounds (+ BS, soft, ND, TTP B/L lower quadrants, Right upper quadrant and flank. No rebound or guarding), Soft - Results Results: Laboratory Results WBC 4.6 x10^3/uL (4.8-10.8) L 11/12/16 05:22 RBC 4.06 10^6/uL (4.20-5.40) L 11/12/16 05:22 Hgb 11.3 g/dL (12.0-16.0) L 11/12/16 05:22 Hct 34.8 % (37.0-47.0) L 11/12/16 05:22 MCV 85.6 fL (81.0-99.0) 11/12/16 05:22 MCH 27.8 pg (27.0-31.0) 11/12/16 05:22 MCHC 32.5 g/dL (32.0-36.0) 11/12/16 05:22 RDW 15.1 % (12.0-15.0) H 11/12/16 05:22 Plt Count 199 10^3/uL (130-450) 11/12/16 05:22 MPV 10.0 fL (7.9-10.8) 11/12/16 05:22 Neut # 3.4 10^3/uL (1.5-6.6) 11/12/16 05:22 Lymph # 0.7 10^3/uL (1.5-3.5) L 11/12/16 05:22 [place] # 0.5 10^3/uL (0.0-1.0) 11/12/16 05:22 Eos # 0.0 10^3/uL (0.0-0.7) 11/12/16 05:22 Baso # 0.0 10^3/uL (0.0-0.1) 11/12/16 05:22 Absolute Nucleated RBC 0.01 x10^3/uL 11/12/16 05:22 Nucleated RBCs 0.2 /100WBC 11/12/16 05:22 Manual Slide Review Indicated 11/11/16 18:24 WBC Morphology NORMAL APPEARANCE (NORMAL) 11/11/16 18:24 Platelet Estimate NORMAL (130-450,000) (NORMAL) 11/11/16 18:24 Platelet Morphology PLATELET CLUMPING (NORMAL) 11/11/16 18:24 RBC Morph Micro Appear NORMAL APPEARANCE (NORMAL) 11/11/16 18:24 Sodium 139 mmol/L (135-145) 11/12/16 05:22 Potassium 3.7 mmol/L (3.5-5.0) 11/12/16 05:22 Chloride 108 mmol/L (101-111) 11/12/16 05:22 Carbon Dioxide 25 mmol/L (21-32) 11/12/16 05:22 Anion Gap 6.0 (6-13) 11/12/16 05:22 BUN 5 mg/dL (6-20) L 11/12/16 05:22 Creatinine 0.6 mg/dL (0.4-1.0) 11/12/16 05:22 Estimated GFR (MDRD) 117 (>89) 11/12/16 05:22 Glucose 94 mg/dL (70-100) 11/12/16 05:22 Calcium 8.2 mg/dL (8.5-10.3) L 11/12/16 05:22 Total Bilirubin 0.7 mg/dL (0.2-1.0) 11/12/16 05:22 AST 13 IU/L (10-42) 11/12/16 05:22 ALT 12 IU/L (10-60) 11/12/16 05:22 Alkaline Phosphatase 42 IU/L (42-121) 11/12/16 05:22 C-Reactive Protein 2.8 mg/dL (0-1.0) H 11/12/16 05:22 Total Protein 5.9 g/dL (6.7-8.2) L 11/12/16 05:22 Albumin 3.4 g/dL (3.2-5.5) 11/12/16 05:22 Globulin 2.5 g/dL (2.1-4.2) 11/12/16 05:22 Albumin/Globulin Ratio 1.4 (1.0-2.2) 11/12/16 05:22 Amylase 37 U/L (28-100) 11/12/16 05:22 Lipase 21 U/L (22-51) L 11/12/16 05:22 Urine Color YELLOW 11/11/16 18:15 Urine Clarity CLEAR (CLEAR) 11/11/16 18:15 Urine pH 7.0 PH (5.0-7.5) 11/11/16 18:15 Ur Specific [place] 1.020 (1.002-1.030) 11/11/16 18:15 Urine Protein NEGATIVE mg/dL (NEGATIVE) 11/11/16 18:15 Urine Glucose (UA) NEGATIVE mg/dL (NEGATIVE) 11/11/16 18:15 Urine Ketones NEGATIVE mg/dL (NEGATIVE) 11/11/16 18:15 Urine Occult Blood NEGATIVE (NEGATIVE) 11/11/16 18:15 Urine Nitrite NEGATIVE (NEGATIVE) 11/11/16 18:15 Urine Bilirubin NEGATIVE (NEGATIVE) 11/11/16 18:15 Urine Urobilinogen 0.2 (NORMAL) E.U./dL (NORMAL) 11/11/16 18:15 Ur Leukocyte Esterase NEGATIVE (NEGATIVE) 11/11/16 18:15 Ur Microscopic Review NOT INDICATED 11/11/16 18:15 Urine Culture Comments NOT INDICATED 11/11/16 18:15 Urine HCG, Qual NEGATIVE 11/11/16 18:15 Urine Opiates Screen POSITIVE (NEGATIVE) H 11/11/16 18:15 Ur Oxycodone Screen POSITIVE (NEGATIVE) H 11/11/16 18:15 Urine Methadone Screen NEGATIVE (NEGATIVE) 11/11/16 18:15 Ur Propoxyphene Screen NEGATIVE (NEGATIVE) 11/11/16 18:15 Ur Barbiturates Screen NEGATIVE (NEGATIVE) 11/11/16 18:15 Ur Tricyclics Screen NEGATIVE (NEGATIVE) 11/11/16 18:15 Ur Phencyclidine Scrn NEGATIVE (NEGATIVE) 11/11/16 18:15 Ur Amphetamine Screen NEGATIVE (NEGATIVE) 11/11/16 18:15 U Methamphetamines Scrn NEGATIVE (NEGATIVE) 11/11/16 18:15 U Benzodiazepines Scrn NEGATIVE (NEGATIVE) 11/11/16 18:15 Urine Cocaine Screen NEGATIVE (NEGATIVE) 11/11/16 18:15 U Cannabinoids Screen NEGATIVE (NEGATIVE) 11/11/16 18:15 Ethyl Alcohol < 5.0 mg/dL 11/12/16 00:00 - Procedures Procedures: Procedures INSERTION OF ENDOTRACHEAL AIRWAY INTO TRACHEA, VIA OPENING (03/06/16) LAPAROSCOP LYSIS-PERITONEAL ADHES (07/14/13) LAPAROSCOP LYSIS-PERIVESICAL ADHES (07/14/13) OTH METATARS/TARS INCIS (05/05/14) OTHER ENDOSCOPY OF SM INTEST (04/02/13) OTHER PLASTIC OPS TENDON (05/05/14) RELEASE PERITONEUM, PERCUTANEOUS ENDOSCOPIC APPROACH (03/06/16) REMOVAL IUD (11/04/12) RESPIRATORY VENTILATION, LESS THAN 24 CONSECUTIVE HOURS (03/06/16)
[2016-11-13 08:44] LABS: BASOPHILS % (AUTO) 0.3 %; HCT - HEMATOCRIT 34.6 % (37.0-47.0); HGB - HEMOGLOBIN 11.6 g/dL (12.0-16.0); LYMPHOCYTES # (AUTO) 0.9 10^3/uL (1.5-3.5); LYMPHOCYTES % (AUTO) 12.1 %; MEAN CORPUSCULAR HEMOGLOBIN 28.3 pg (27.0-31.0); MEAN CORPUSCULAR HGB CONC 33.5 g/dL (32.0-36.0); MEAN CORPUSCULAR VOLUME 84.6 fL (81.0-99.0); MEAN PLATELET VOLUME 9.9 fL (7.9-10.8); MONOCYTES # (AUTO) 0.2 10^3/uL (0.0-1.0); MONOCYTES % (AUTO) 2.6 %; NEUTROPHILS # (AUTO) 6.3 10^3/uL (1.5-6.6); RED BLOOD COUNT 4.09 10^6/uL (4.20-5.40); RED CELL DISTRIBUTION WIDTH 14.6 % (12.0-15.0); UNCORRECTED WHITE BLOOD COUNT 7.4 x10^3/uL; WHITE BLOOD COUNT 7.4 x10^3/uL (4.8-10.8)
[2016-11-13 09:01] LABS: ALBUMIN/GLOBULIN RATIO 1.2 (1.0-2.2); BILIRUBIN,TOTAL 0.8 mg/dL (0.2-1.0); CALCIUM 8.7 mg/dL (8.5-10.3); CREATININE 0.5 mg/dL (0.4-1.0); POTASSIUM 3.9 mmol/L (3.5-5.0); TOTAL PROTEIN 6.2 g/dL (6.7-8.2)
--- NOTE | 2016-11-13 10:04 | PROVIDER PROGRESS NOTE ---
Assessment/Plan - Problem List (1) Abdominal pain Qualifiers: Abdominal location: right upper quadrant Qualified Code(s): R10.11 - Right upper quadrant pain Assessment/Plan: ongoing with improvement. Mostly to mid upper epigastric and right upper quadrant. will be getting HIDA scan and surgery is following for probable cholecystitis with cholelithiasis on CT and ultrasound. continue with antiemetics and pain control. NPO after midnight on for scan. she is still recieving morphine 2hours as needed IV. will continue to monitor for fever , chills and WBC count (2) Percocet use disorder, mild, in controlled environment, abuse Assessment/Plan: improving. continue to decrease amount of percocet and given benzodiazepine for withdrawal. continue with morphine Q2 hours IV as needed put encourage decreasing as well. continue with Zofran and Phernergan IV. she is taking gabapentin at night to help with sleep and pain . continue with monitoring for withdrawal symptoms (3) Vomiting without nausea, intractable Qualifiers: Vomiting type: cyclical vomiting Qualified Code(s): G43.A1 - Cyclical vomiting, intractable Assessment/Plan: improving. continue with IV phenergan and change to oral once controlled and on clear diet. patient states the nausea is better but it comes back when she starts to vomit. monitor intake and electrolytes balances (4) Anxiety disorder affecting , antepartum Assessment/Plan: ongoing. 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 A tricyclic might help. continue to monitor behavior she has been able to decrease the amount of pain medications by managing the anxiety (5) Elevated C-reactive protein (CRP) Assessment/Plan: new. secondary to acute gastritis and probable cholecystitis. Patient is receiving steroid IV methylprednisolone with taper. She had colitis on CT scan and CRP was elevated at 2.8. continue to monitor and for steroid reactions (6) Gastric inflammation Qualifiers: Gastritis type: unspecified gastritis Chronicity: acute Gastritis bleeding: without bleeding Qualified Code(s): K29.00 - Acute gastritis without bleeding Assessment/Plan: improving. continue with steroids with taper. continue with anti inflammatory diet, no gluten since patient states she is allergic to wheat products as well. (7) Tachycardia Assessment/Plan: resolved. Patient was given IVF for hydration and elevated heart rate probably related to the opiod withdrawal - Current Meds Current Meds: Current Medications Generic Name Dose Route Start Last Admin Trade Name Freq PRN Reason Stop Dose Admin Alprazolam 0.5 mg 11/13/16 09:00 11/13/16 08:10 Xanax PO 0.5 mg BID SAMANTA Administration Dicyclomine HCl 10 mg 11/11/16 23:00 11/12/16 21:10 Bentyl PO 10 mg QID SAMANTA Administration Sodium Chloride 1,000 mls @ 100 mls/hr 11/11/16 23:00 11/13/16 04:53 Normal Saline 0.9% IV 100 mls/hr .Q10H SAMANTA Administration Polyethylene Glycol 17 gm 11/12/16 09:00 11/12/16 12:15 Miralax PO Not Given DAILY SAMANTA Ranitidine HCl 150 mg 11/11/16 23:00 11/12/16 21:10 Zantac PO 150 mg BID SAMANTA Administration Sodium Chloride 10 ml 11/11/16 22:35 11/12/16 01:39 Normal Saline Flush 0.9% IVP 10 ml PRN PRN Administration NEEDED PER PROVIDER ORDERS Sodium Chloride 10 ml 11/12/16 06:00 11/13/16 06:52 Normal Saline Flush 0.9% IVP Not Given Q8HR SAMANTA Sucralfate 1 gm 11/11/16 23:00 11/13/16 06:52 Carafate PO 1 gm ACHS SAMANTA Administration - Lab Result Lab results reviewed: Yes Fish Bone Diagrams: 11/13/16 08:25 11/13/16 08:25 Other Lab Results: Abnormal Lab Results 11/11/16 11/11/16 11/12/16 18:15 18:24 05:22 WBC 4.6 x10^3/uL L x10^3/uL (4.8-10.8) RBC 4.06 10^6/uL L 10^6/uL (4.20-5.40) Hgb 11.3 g/dL L g/dL (12.0-16.0) Hct 34.8 % L % (37.0-47.0) RDW 15.1 % H % (12.0-15.0) Lymph # 1.0 10^3/uL L 10^3/uL 0.7 10^3/uL L 10^3/uL (1.5-3.5) (1.5-3.5) BUN Calcium C-Reactive Protein Total Protein Lipase Urine Opiates Screen POSITIVE H (NEGATIVE) Ur Oxycodone Screen POSITIVE H (NEGATIVE) 11/12/16 11/12/16 11/12/16 05:22 05:22 05:22 WBC RBC Hgb Hct RDW Lymph # BUN 5 mg/dL L mg/dL (6-20) Calcium 8.2 mg/dL L mg/dL (8.5-10.3) C-Reactive Protein 2.8 mg/dL H mg/dL (0-1.0) Total Protein 5.9 g/dL L g/dL (6.7-8.2) Lipase 21 U/L L U/L (22-51) Urine Opiates Screen Ur Oxycodone Screen 11/13/16 11/13/16 08:25 08:25 WBC RBC 4.09 10^6/uL L 10^6/uL (4.20-5.40) Hgb 11.6 g/dL L g/dL (12.0-16.0) Hct 34.6 % L % (37.0-47.0) RDW Lymph # 0.9 10^3/uL L 10^3/uL (1.5-3.5) BUN Calcium C-Reactive Protein Total Protein 6.2 g/dL L g/dL (6.7-8.2) Lipase Urine Opiates Screen Ur Oxycodone Screen - EKG Results EKG Interpreted Independently: No - Additional Planning Condition/Complexity: Improved My Orders: My Active Orders 11/12/16 11:54 General Surgery Consult [CONS] Routine 11/12/16 11:55 Hepatobiliary HIDA w/ Rx [NM] Stat 11/12/16 12:20 Consult [Gynecology Consult] [CONS] Routine 11/13/16 07:55 diphenhydrAMINE [Benadryl] 25 mg PO Q4HR PRN 11/13/16 08:00 Saccharomyces Boulardii [Florastor] 250 mg PO BIDWM methylPREDNISolone SUCCINATE [SOLU-Medrol (40MG VIAL)] 40 mg IVP ONCE 11/13/16 09:00 ALPRAZolam [Xanax] 0.5 mg PO BID 11/13/16 14:00 oxyCODONE/ACET 5/325 [Percocet 5 mg/325 mg] 1 tab PO Q8HR 11/13/16 21:00 Gabapentin [Neurontin] 300 mg PO QPM 11/13/16 Lunch Clear Liquid Diet [DIET] Consult/Specialty: Gynecology, Surgery Plan Discussed with:: Patient Time Spent: 31-60 minutes Additional Planning Notes: Patient has been changed to inpatient since she is still requiring IV pain medication and IVF. She will need a HIDA scan for gallbladder disease and surgical consult is following. She will require an additional 24 hours treatment. She is high risk for worsening comorbidities and will need IV medication with high risk for toxicity. Subjective - Subjective Patient Reports: Abdominal Pain (still generalized but no nausea or vomiting since last night. She continues with pain specifically in the upper left and mid upper abdomen. She is taking morphine Q2 hours IV and on Zofran for nausea and phenergan IV for vomiting.), Fatigue, Pain Nursing Reports: Nausea, Pain (still generalized in abdomen) Objective Vital Signs: Vital Signs - 24 hr 11/12/16 11/12/16 11/12/16 12:02 16:45 20:50 Temperature 36.5 C 36.7 C 36.7 C Heart Rate [ 73 95 80 Brachial] Respiratory 18 18 18 Rate Blood Pressure 96/65 94/60 96/63 [Left Brachial artery] Blood Pressure [Right Brachial artery] O2 Saturation 97 97 97 11/12/16 11/13/16 11/13/16 23:35 04:42 06:16 Temperature 36.6 C 36.3 C L Heart Rate [ 87 66 69 Brachial] Respiratory 18 16 Rate Blood Pressure 90/56 L 83/43 L 91/52 L [Left Brachial artery] Blood Pressure 85/45 L [Right Brachial artery] O2 Saturation 97 97 11/13/16 07:35 Temperature 36.6 C Heart Rate [ 68 Brachial] Respiratory 16 Rate Blood Pressure [Left Brachial artery] Blood Pressure 91/55 L [Right Brachial artery] O2 Saturation 97 Oxygen O2 Source Room air 11/13/16 10:03 continue with IV phenergan. will try to transition to oral and reduce the percocet dosage. I&O (Last 24 Hrs): Intake and Output Totals x24h 11/11/16 11/12/16 11/13/16 23:59 23:59 23:59 Intake Total 1279 707 Output Total 1000 850 Balance 279 -143 General: Alert, Oriented x3, Cooperative, No acute distress HEENT: PERRLA Neck: Supple, No JVD Lymphatic: no adenopathy Neuro: Alert, CN 2-12 Grossly Intact, Oriented Times 3 Cardiovascular: Regular rate, Normal S1, Normal S2, No murmurs Respiratory: Chest non-tender, No respiratory distress, Breath sounds nml Abdomen: Normal bowel sounds, Other (tenderness to right upper quad with palpation) Genitourinary: No Discharge, Left Adnexal Tendernes, Right Adnexal Tenderness, Abnormal Uterus Rectal: Non-Tender Extremities: No clubbing, No cyanosis, No edema, No tenderness/swelling Skin: No rashes, No breakdown, No significant lesion - Results Results: Laboratory Results WBC 7.4 x10^3/uL (4.8-10.8) 11/13/16 08:25 RBC 4.09 10^6/uL (4.20-5.40) L 11/13/16 08:25 Hgb 11.6 g/dL (12.0-16.0) L 11/13/16 08:25 Hct 34.6 % (37.0-47.0) L 11/13/16 08:25 MCV 84.6 fL (81.0-99.0) 11/13/16 08:25 MCH 28.3 pg (27.0-31.0) 11/13/16 08:25 MCHC 33.5 g/dL (32.0-36.0) 11/13/16 08:25 RDW 14.6 % (12.0-15.0) 11/13/16 08:25 Plt Count 203 10^3/uL (130-450) 11/13/16 08:25 MPV 9.9 fL (7.9-10.8) 11/13/16 08:25 Neut # 6.3 10^3/uL (1.5-6.6) 11/13/16 08:25 Lymph # 0.9 10^3/uL (1.5-3.5) L 11/13/16 08:25 [place] # 0.2 10^3/uL (0.0-1.0) 11/13/16 08:25 Eos # 0.0 10^3/uL (0.0-0.7) 11/13/16 08:25 Baso # 0.0 10^3/uL (0.0-0.1) 11/13/16 08:25 Absolute Nucleated RBC 0.00 x10^3/uL 11/13/16 08:25 Nucleated RBCs 0.0 /100WBC 11/13/16 08:25 Manual Slide Review Indicated 11/11/16 18:24 WBC Morphology NORMAL APPEARANCE (NORMAL) 11/11/16 18:24 Platelet Estimate NORMAL (130-450,000) (NORMAL) 11/11/16 18:24 Platelet Morphology PLATELET CLUMPING (NORMAL) 11/11/16 18:24 RBC Morph Micro Appear NORMAL APPEARANCE (NORMAL) 11/11/16 18:24 Sodium 138 mmol/L (135-145) 11/13/16 08:25 Potassium 3.9 mmol/L (3.5-5.0) 11/13/16 08:25 Chloride 108 mmol/L (101-111) 11/13/16 08:25 Carbon Dioxide 21 mmol/L (21-32) 11/13/16 08:25 Anion Gap 9.0 (6-13) 11/13/16 08:25 BUN 9 mg/dL (6-20) 11/13/16 08:25 Creatinine 0.5 mg/dL (0.4-1.0) 11/13/16 08:25 Estimated GFR (MDRD) 145 (>89) 11/13/16 08:25 Glucose 100 mg/dL (70-100) 11/13/16 08:25 Calcium 8.7 mg/dL (8.5-10.3) 11/13/16 08:25 Total Bilirubin 0.8 mg/dL (0.2-1.0) 11/13/16 08:25 AST 17 IU/L (10-42) 11/13/16 08:25 ALT 16 IU/L (10-60) 11/13/16 08:25 Alkaline Phosphatase 42 IU/L (42-121) 11/13/16 08:25 C-Reactive Protein 2.8 mg/dL (0-1.0) H 11/12/16 05:22 Total Protein 6.2 g/dL (6.7-8.2) L 11/13/16 08:25 Albumin 3.4 g/dL (3.2-5.5) 11/13/16 08:25 Globulin 2.8 g/dL (2.1-4.2) 11/13/16 08:25 Albumin/Globulin Ratio 1.2 (1.0-2.2) 11/13/16 08:25 Amylase 37 U/L (28-100) 11/12/16 05:22 Lipase 21 U/L (22-51) L 11/12/16 05:22 Urine Color YELLOW 11/11/16 18:15 Urine Clarity CLEAR (CLEAR) 11/11/16 18:15 Urine pH 7.0 PH (5.0-7.5) 11/11/16 18:15 Ur Specific [place] 1.020 (1.002-1.030) 11/11/16 18:15 Urine Protein NEGATIVE mg/dL (NEGATIVE) 11/11/16 18:15 Urine Glucose (UA) NEGATIVE mg/dL (NEGATIVE) 11/11/16 18:15 Urine Ketones NEGATIVE mg/dL (NEGATIVE) 11/11/16 18:15 Urine Occult Blood NEGATIVE (NEGATIVE) 11/11/16 18:15 Urine Nitrite NEGATIVE (NEGATIVE) 11/11/16 18:15 Urine Bilirubin NEGATIVE (NEGATIVE) 11/11/16 18:15 Urine Urobilinogen 0.2 (NORMAL) E.U./dL (NORMAL) 11/11/16 18:15 Ur Leukocyte Esterase NEGATIVE (NEGATIVE) 11/11/16 18:15 Ur Microscopic Review NOT INDICATED 11/11/16 18:15 Urine Culture Comments NOT INDICATED 11/11/16 18:15 Urine HCG, Qual NEGATIVE 11/11/16 18:15 Urine Opiates Screen POSITIVE (NEGATIVE) H 11/11/16 18:15 Ur Oxycodone Screen POSITIVE (NEGATIVE) H 11/11/16 18:15 Urine Methadone Screen NEGATIVE (NEGATIVE) 11/11/16 18:15 Ur Propoxyphene Screen NEGATIVE (NEGATIVE) 11/11/16 18:15 Ur Barbiturates Screen NEGATIVE (NEGATIVE) 11/11/16 18:15 Ur Tricyclics Screen NEGATIVE (NEGATIVE) 11/11/16 18:15 Ur Phencyclidine Scrn NEGATIVE (NEGATIVE) 11/11/16 18:15 Ur Amphetamine Screen NEGATIVE (NEGATIVE) 11/11/16 18:15 U Methamphetamines Scrn NEGATIVE (NEGATIVE) 11/11/16 18:15 U Benzodiazepines Scrn NEGATIVE (NEGATIVE) 11/11/16 18:15 Urine Cocaine Screen NEGATIVE (NEGATIVE) 11/11/16 18:15 U Cannabinoids Screen NEGATIVE (NEGATIVE) 11/11/16 18:15 Ethyl Alcohol < 5.0 mg/dL 11/12/16 00:00 - Procedures Procedures: Procedures INSERTION OF ENDOTRACHEAL AIRWAY INTO TRACHEA, VIA OPENING (03/06/16) LAPAROSCOP LYSIS-PERITONEAL ADHES (07/14/13) LAPAROSCOP LYSIS-PERIVESICAL ADHES (07/14/13) OTH METATARS/TARS INCIS (05/05/14) OTHER ENDOSCOPY OF SM INTEST (04/02/13) OTHER PLASTIC OPS TENDON (05/05/14) RELEASE PERITONEUM, PERCUTANEOUS ENDOSCOPIC APPROACH (03/06/16) REMOVAL IUD (11/04/12) RESPIRATORY VENTILATION, LESS THAN 24 CONSECUTIVE HOURS (03/06/16)
[2016-11-13] MEDS: SACCHAROMYCES BOULARDII 250 MG CAPSULE PO SCH ×2 (11:29→16:35)
[2016-11-13] MEDS: POLYETHYLENE GLYCOL 3350 17 GM PACKET PO SCH (11:31)
[2016-11-13] MEDS: DICYCLOMINE 10 MG CAPSULE PO SCH ×4 (11:31→21:55)
[2016-11-13] MEDS ORDERED: SINCALIDE IV ONE (12:16)
[2016-11-13] MEDS ORDERED: SODIUM CHLORIDE 0.9% IV ONE (12:16)
--- NOTE | 2016-11-13 13:14 | Nuclear Medicine Prelim Report ---
Exam: NM Hepatobiliary HIDA w/ Rx IMPRESSION: 1. Patent cystic duct. 2. Patent common bile duct. 3. Negative for acute or chronic cholecystitis. 4. No enterogastric bile reflux. 5. Normal gallbladder ejection fraction of 54%. [facility] SITE ID: [id number]
--- NOTE | 2016-11-13 13:17 | Nuclear Medicine Report ---
EXAM: HEPATOBILIARY SCAN WITH CCK/KINEVAC ADMINISTRATION EXAM DATE: 11/13/2016 09:06 AM. CLINICAL HISTORY: Fluid around gallbladder and thickening with pain. COMPARISON: Abdomen/pelvis CT 11/11/2016. TECHNIQUE: Following the intravenous administration of 5 mCi of Tc99m Mebrofenin, a hepatobiliary sca n was done centered on the liver and gallbladder in multiple sequential images and projections. Following the intravenous administration of 1.1 mcg of CCK/ Kinevac over the course of approximately 60 minutes, dynamic imaging was done and the gallbladder ejection fraction was calculated. FINDINGS: Normal extraction of tracer from the blood pool indicating normal hepatocellular function. The liver size and shape is grossly within normal limits. There is activity visualized in the bile ducts and gallbladder at the expected time intervals. Duoden al activity is seen after CCK was administered. Activity appears to be present in a duodenal divertic ulum. With CCK administration, the gallbladder demonstrates an effective contraction. The gallbladder eject ion fraction is calculated to be 54%, well above the lower limit of normal of 38% for a 60-minute inj ection. No enterogastric bile reflux was observed. IMPRESSION: 1. Patent cystic duct. 2. Patent common bile duct. 3. Negative for acute or chronic cholecystitis. 4. No enterogastric bile reflux. 5. Normal gallbladder ejection fraction of 54%. [facility] Referring Provider Line: [phone] SITE ID: [id number]
[2016-11-13] MEDS: oxyCOD/ACETAMIN 5 MG/325 MG TABLET PO SCH ×2 (14:20→21:55)
[2016-11-13] MEDS: predniSONE 20 MG TABLET PO SCH (14:43)
[2016-11-13] MEDS ORDERED: GI COCKTAIL 120 ML BOTTLE PO SCH (15:00)
[2016-11-13] MEDS ORDERED: PROMETHAZINE 25 MG/1 ML VIAL IM PRN (18:08)
[2016-11-13] MEDS: ONDANSETRON ODT 4 MG TABLET TL PRN (18:16)
[2016-11-13] MEDS: traMADol 50 MG TABLET PO PRN ×2 (18:26→23:36)
[2016-11-13] MEDS ORDERED: GABAPENTIN 300 MG CAPSULE PO SCH (21:00)
[2016-11-13] MEDS: GABAPENTIN 300 MG CAPSULE PO SCH (21:55)
[2016-11-14 05:56] LABS: HCT - HEMATOCRIT 34.5 % (37.0-47.0); HGB - HEMOGLOBIN 11.2 g/dL (12.0-16.0); MEAN CORPUSCULAR HEMOGLOBIN 27.8 pg (27.0-31.0); MEAN CORPUSCULAR HGB CONC 32.5 g/dL (32.0-36.0); MEAN CORPUSCULAR VOLUME 85.5 fL (81.0-99.0); RED BLOOD COUNT 4.03 10^6/uL (4.20-5.40); RED CELL DISTRIBUTION WIDTH 14.6 % (12.0-15.0)
[2016-11-14 06:04] LABS: ALBUMIN/GLOBULIN RATIO 1.3 (1.0-2.2); BILIRUBIN,TOTAL < 0.2 mg/dL (0.2-1.0); BUN - BLOOD UREA NITROGEN 10 mg/dL (6-20); CALCIUM 8.3 mg/dL (8.5-10.3); CARBON DIOXIDE - CO2 26 mmol/L (21-32); CHLORIDE 106 mmol/L (101-111); CREATININE 0.5 mg/dL (0.4-1.0); GFR - MDRD 145 (>89); GLUCOSE 126 mg/dL (70-100); POTASSIUM 3.7 mmol/L (3.5-5.0); SODIUM 139 mmol/L (135-145)
[2016-11-14] MEDS: SUCRALFATE 1 GM/10 ML UDC PO SCH (06:13)
[2016-11-14] MEDS: oxyCOD/ACETAMIN 5 MG/325 MG TABLET PO SCH (06:13)
[2016-11-14] MEDS: GABAPENTIN 300 MG CAPSULE PO SCH (06:13)
--- NOTE | 2016-11-14 08:17 | Discharge Plan ---
Discharge Plan Disposition: Home, Self Care Condition: Good Prescriptions: diphenhydrAMINE [Benadryl] 25 mg PO Q4HR PRN #30 capsule PRN Reason: Allergy Symptoms traMADol [Ultram] 50 mg PO Q4HR PRN #120 tablet PRN Reason: Pain Ondansetron Odt [Zofran Odt] 4 mg TL Q6HR PRN #30 tablet PRN Reason: Nausea / Vomiting Dicyclomine [Bentyl] 10 mg PO QID #20 capsule predniSONE [Deltasone] 20 mg PO DAILYWM #10 tablet Gabapentin [Neurontin] 300 mg PO TID #90 capsule Sucralfate 1 gm PO AC #30 tablet Alprazolam [Xanax] 0.5 mg PO TID #60 tablet raNITIdine [Zantac] 150 mg PO BID #30 tablet Diet: Regular (no Gluten and no dairy diet- non inflammatory diet, increase ptotein and no refined sugar in diet. see examples provided) Activity Restrictions: Activity as Tolerated Shower Restrictions: No Driving Restrictions: No Weight Bearing: Full Weight Instruction Topics: Diet Gluten Free Celiac, MyPlate Nutrition Dairy, Depression Additional Instructions or Follow Up instructions: Please see your primary care provider within the first week of discharge. You will need to see a Rheumologist for additonal workup for inflammation and underlying autoimmune disorder with GI. Recommended diet is gluten and dairy free. Avoid soy and peanuts if possible. Menu and food sources are provided. Continue activity as tolerated. You will need to get plenty of sleep at night. Take the medications prescribed to help with sleep. You will need to drink plenty of water throughout the day. No soda since it has refined sugar and excess calories. You can eat coconut, cane organic or maple sugar products but limit these as well. Eating at home is better and avoid fast food. Take all home medications as prescribed, you have been given a prescription for Prednisone, Tramadol, phenergan, gabapentin and xanax. Take as prescribed. You will also need to followup for post depression. The name of a psychologist has been given to followup with. You need to get exercise daily. This will help with the pain and depression. Please come to the ER is depressive symptoms worsen or you feel like hurting yourself or others. Follow-Up Care: Dietitian No Smoking: If you smoke, Please STOP! Call for help.
[2016-11-14 08:56] VITALS: BP 100/66
[2016-11-14] MEDS: predniSONE 20 MG TABLET PO SCH (09:11)
[2016-11-14] MEDS: SACCHAROMYCES BOULARDII 250 MG CAPSULE PO SCH (09:11)
[2016-11-14] MEDS: ALPRAZolam 0.25 MG TABLET PO SCH (09:13)
[2016-11-14] MEDS: traMADol 50 MG TABLET PO PRN (09:15)
[2016-11-14] MEDS: POLYETHYLENE GLYCOL 3350 17 GM PACKET PO SCH (09:15)
[2016-11-14] MEDS: DICYCLOMINE 10 MG CAPSULE PO SCH (09:15)
[2016-11-14] MEDS: ONDANSETRON ODT 4 MG TABLET TL PRN (09:20)
--- NOTE | 2016-11-15 08:25 | DISCHARGE SUMMARY ---
DATE OF ADMISSION: 11/13/2016 DATE OF DISCHARGE: 11/14/2016 ADMITTING DIAGNOSES: Lower abdominal pain and intractable vomiting. DISCHARGE DIAGNOSES: 1. Acute abdominal pain with opiate dependence and withdrawal. 2. Abdominal pain, intractable vomiting secondary to inflammatory irritable bowel disease. 3. with delivery 30 weeks' secondary to new onset of depression 4. Acute abdominal pain status post laparoscopic tubal ligation. 5. Acute on Chronic panic attacks with generalized anxiety disorder. PROCEDURES: 1. Transvaginal ultrasound. 2. Ultrasound of the upper abdomen Impression: mild free fluid around gallbladder and in pelvic s/p tubal ligation CONSULTATIONS: With OB and Surgical. HOSPITAL COURSE AND TREATMENT: The patient is a 30-year-old female who presented to the ER with a history of perforated peptic ulcer disease, recent tubal ligation x10 days out with delivery at 30-week , Percocet abuse with opioid dependence and probable withdrawal. The patient states that 10 days prior to coming into the ER she had a laparoscopic tubal ligation. After 5 days from the procedure she was having increased pelvic pain that was radiating to flanks that was associated with nausea and intractable vomiting with no bowel movements. No vaginal bleeding, no discharge. The patient was admitted for further evaluation and workup. The patient has a longstanding history of multiple allergies including gluten, gelatin, and multiple antibiotics and food sources. The patient states that her family also has multiple allergens including gluten and dairy. The patient is not a smoker. She does not drink; however, she did have a dependence to Percocet, which she states helps relieve not only the pain, but also her anxiety. The patient had been living in a very stressful home life situation in which she had just recently had a baby 10 weeks , had been in NICU and had just recently been able to come home. The patient also has 3 other children at home as well. She does have a good support system, her father who was also present during most of her inpatient stay. While inpatient she received morphine IV for pain along with Xanax for her anxiety, Phenergan, Zofran, Reglan, and Bentyl. The patient required IV medication to control the pain and IV Phenergan to help control the vomiting. The patient was also a difficult IV access and multiple nurses had tried and failed because she had significant inflammation throughout the veins and scarring along the veins because of multiple admissions in the past for irritable bowel disease. The patient was given IV fluids for hydration. She was kept on n.p.o. to clear diet and advanced as tolerated. On the day of discharge, she was tolerating a gluten free full diet. She was counseled on continuing anti-inflammatory gluten free paleo diet including no dairy, no soy and no gluten. She was transitioned off IV morphine to tramadol, which helped control the pain. The patient was also given a "cocktail" that comprised Phenergan and Benadryl, gabapentin and tramadol and Xanax to help with not only the anxiety and pain, but also with the inflammatory response. The patient's CRP at the time of admission was 10.7. She was also given steroids which did help to also reduce the pain in the gut. The patient will definitely need an outpatient colonoscopy for further evaluation of the colon and small intestine. She does state that she has a history of an aunt and other family members that have underlying autoimmune illnesses and inflammatory processes including fibromyalgia, lupus and osteoarthritis. On the day of discharge she was going home with her family, father and friend. She was counseled significantly on diet and stress management and also given referral to followup with [facility]. She also knows she is to followup with for a colonoscopy. TIME OF DISCHARGE: Vital signs were within normal limits. She was tolerating a full meal and remained afebrile. The patient was able to go home. PHYSICAL EXAMINATION: VITAL SIGNS: Temperature 36.6, blood pressure 100/66, respirations 18, pulse oximetry 97% on room air and heart rate 75. GENERAL: She is alert, oriented, no acute distress. EYES: Pupils are equal, round, reactive to light and accommodation. Conjunctivae and sclerae were nonicteric, not injected. ENT: Nares are patent. No nasal discharge. Oropharynx. No masses, exudates or lesions. Mucous membranes were moist. NECK: Supple. No thyromegaly. RESPIRATORY: Breath sounds are clear and equal bilaterally to auscultation and percussion, no retractions or nasal flaring. CARDIOVASCULAR: S1, S2 noted. No gallops, murmurs or rubs. GASTROINTESTINAL: Abdomen was soft, nontender. Bowel sounds were active. No guarding or rebound. NEUROLOGIC: She was alert, cranial nerves 2-12 are intact. Sensory is intact. MUSCULOSKELETAL: The patient was able to move upper and lower extremities without difficulty. No cyanosis. Pulses were palpable. HEMATOLOGIC: No active bleeding. The patient is hemodynamically stable. LYMPHATICS: No cervical, axillary, supraclavicular lymphadenopathy was noted. GENITOURINARY: No CVA tenderness. No mass palpated. No bladder distention. SKIN: SKIN: Warm, dry, intact. Normal turgor. No evidence of rashes, lesions, or cellulitis. PSYCHIATRIC: Behavior was appropriate, no suicidal ideation. The patient was pleasant and cooperative. MEDICATIONS AT TIME OF DISCHARGE: 1. Benadryl 25 mg p.o. 4 hours as needed and at night. 2. Tramadol 50 mg p.o. 4 hours as needed for pain. 3. Zofran ODT 4 mg. 4. Bentyl 10 mg p.o. q.i.d. 5. Prednisone 20 mg p.o. daily with meals as taper. 6. EpiPen p.r.n.. 7. MiraLax 17 grams p.o. daily. 8. Gabapentin 300 mg p.o. t.i.d.. 9. Sucralfate 1 mg p.o. daily. 10. Xanax 0.5 mg t.i.d.. 11. Ranitidine 150 p.o. b.i.d.. FOLLOWUP INSTRUCTIONS FOR DISCHARGE: 1. Activity: Resume activity as tolerated. Take frequent rest breaks, you will be tired, especially since you had a baby approximately 4-6 weeks ago. The patient verbally understood that she can return back to her normal activities at home, as well as caring for her child. DIET: The patient was given information regarding a gluten and dairy-free diet. She understands that she is to follow an anti-inflammatory diet and to seek out additional education and counseling with gastrointestinal specialist. The patient also was told to avoid sodas and refined sugars. She understands she is to drink 6-8 glasses of water daily. MEDICATIONS: To take all home medications as prescribed. She was given a prescription for tramadol, Benadryl, Zofran, Bentyl, Prednisone, Xanax and Neurontin. The patient understands she is to followup with primary care provider within 1 week of discharge. The patient was given all information by nursing and hospitalist staff including prescriptions and information for followup. She verbally understood all instructions that were given by nursing and hospitalist staff. On the day of discharge, the patient was stable in no acute distress. Vital signs were within normal limits. Time spent on education planning and discharge was 70 minutes. CODE STATUS: THE PATIENT REMAINED FULL CODE STATUS AT DISCHARGE:. JOB #: [id number] EXT JOB #:[id number] REZA
[2016-11-15 12:46] LABS: ANA SCREEN NEGATIVE (NEGATIVE)
== END 2016-11-14 12:00 | disposition home or self-care (01) | DRG 392 ==
LOC: ED 17:59 → MS 22:39 → OBSVTOIN 11-13 11:51 → MS 11-13 13:16
PROVIDERS: ADMIT Specialist; ATTEND Nurse Practitioner
DX: R10.2 Pelvic and perineal pain (principal); F11.23 Opioid dependence with withdrawal; K58.9 Irritable bowel syndrome, unspecified; F53 Mental and behavioral disorders associated with the puerperium, not elsewhere classified; F41.0 Panic disorder [episodic paroxysmal anxiety]; F41.1 Generalized anxiety disorder; K29.00 Acute gastritis without bleeding; G89.29 Other chronic pain; Z98.890 Other specified postprocedural states; Z98.51 Tubal ligation status; Z87.11 Personal history of peptic ulcer disease; Z88.1 Allergy status to other antibiotic agents; Z91.02 Food additives allergy status; Z91.011 Allergy to milk products; Z83.2 Family history of diseases of the blood and blood-forming organs and certain disorders involving the immune mechanism; Z63.79 Other stressful life events affecting family and household; Z71.3 Dietary counseling and surveillance; Z71.89 Other specified counseling; Z91.041 Radiographic dye allergy status; Z88.6 Allergy status to analgesic agent; Z88.5 Allergy status to narcotic agent; Z88.8 Allergy status to other drugs, medicaments and biological substances; Z87.442 Personal history of urinary calculi; Z68.26 Body mass index [BMI] 26.0-26.9, adult
CPT/HCPCS: 36415; 74177; 76700; 76830; 78227; 80053; 80306; 80320; 81001; 81003; 81025; 82150; 83690; 85025; 86038; 86140; 87086; 93005; 96361; 96365; 96367; 96372; 96374; 96375; 96376; 99284; 99285

== ENCOUNTER 2016-11-30 22:04 | Outpatient (CLI) | payer MEDICAID | END 2016-11-30 22:05 | disposition critical access hospital (66) | LOC: EMS 22:04 | PROVIDERS: ATTEND Surgery | DX: R07.89 Other chest pain (principal) | CPT/HCPCS: A0425; A0429 ==

== ENCOUNTER 2016-11-30 22:23 | Emergency (ER) | payer MEDICAID ==
--- NOTE | 2016-11-30 22:25 | ED Physician Documentation ---
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 patient took 75 mg benadryl ( 50mg and then 25mg more when she felt that the first dose was not ameliorating symptoms), and then used epipen and called 911. Review of Systems Cardiac: denies: Chest pain / pressure Respiratory: reports: Dyspnea. denies: Cough GI: reports: Reviewed and negative Skin: reports: Rash PD PAST MEDICAL HISTORY - Present Medications Home Medications: Ambulatory Orders Medication Instructions Recorded Confirmed Alprazolam [Xanax] 0.5 mg PO TID #60 tablet 11/14/16 Dicyclomine [Bentyl] 10 mg PO QID #20 capsule 11/14/16 Epinephrine [Epipen 2-Kolby] 0.3 mg SQ PRN PRN #1 auto.injct 11/14/16 Gabapentin [Neurontin] 300 mg PO TID #90 capsule 11/14/16 Ondansetron Odt [Zofran Odt] 4 mg TL Q6HR PRN #30 tablet 11/14/16 Polyethylene Glycol 3350 [Miralax] 17 gm PO DAILY #30 packet 11/14/16 Sucralfate 1 gm PO AC #30 tablet 11/14/16 diphenhydrAMINE [Benadryl] 25 mg PO Q4HR PRN #30 capsule 11/14/16 predniSONE [Deltasone] 20 mg PO DAILYWM #10 tablet 11/14/16 raNITIdine [Zantac] 150 mg PO BID #30 tablet 11/14/16 traMADol [Ultram] 50 mg PO Q4HR PRN #120 tablet 11/14/16 Epinephrine [Epipen 2-Kolby] 0.3 mg IJ PRN PRN #1 auto.injct 12/01/16 - Allergies Allergies/Adverse Reactions: Allergies Allergy/AdvReac Type Severity Reaction Status Date / Time aspirin Allergy Severe Anaphylaxis Verified 11/30/16 22:29 gelatin Allergy Severe Respiratory Verified 11/30/16 22:29 hydromorphone HCl * Allergy Severe Hives Verified 11/30/16 22:29 [From Dilaudid] morphine Allergy Severe Hives Verified 11/30/16 22:29 nitrofurantoin Allergy Severe Respiratory Verified 11/30/16 22:29 macrocrystalline * [From Macrobid] amoxicillin Allergy Anaphylaxis Verified 11/30/16 22:29 Beef Containing Products Allergy Anaphylaxis Verified 11/30/16 22:29 cinnamon Allergy Unknown Verified 11/30/16 22:29 famotidine [From Pepcid] Allergy Anaphylaxis Verified 11/30/16 22:29 fentanyl Allergy Unknown Verified 11/30/16 22:29 fluconazole Allergy Hives Verified 11/30/16 22:29 meperidine HCl * Allergy Anaphylaxis Verified 11/30/16 22:29 [From Demerol] Penicillins Allergy Anaphylaxis Verified 11/30/16 22:29 tamsulosin HCl * Allergy Unknown Verified 11/30/16 22:29 [From Flomax] tramadol Allergy Hives Verified 11/30/16 22:29 wheat Allergy Hives Verified 11/30/16 22:29 hydrocodone [Hydrocodone] AdvReac Severe Emesis Verified 11/30/16 22:29 butorphanol AdvReac Intermediate Anxiety Verified 11/30/16 22:29 adhesive AdvReac Rash Verified 11/30/16 22:29 fexofenadine AdvReac Edema Verified 11/30/16 22:29 NSAIDS (Non-Steroidal AdvReac Cramps Verified 11/30/16 22:29 Anti-Inflamma - Living Situation Living Arrangement: reports: At home - Social History Does the pt smoke?: No PD ED PE NORMAL - Vitals Vital signs reviewed: Yes - General General: Alert and oriented X 3, Well developed/nourished, Other (stridor) - HEENT HEENT: Moist mucous membranes, Pharynx benign (airway is widely patent with no perioral or intraoral edema) - Neck Neck: Supple, no meningeal sign - Cardiac Cardiac: RRR, No murmur - Respiratory Respiratory: No respiratory distress, Clear bilaterally - Abdomen Abdomen: Soft, Non tender - Derm Derm: Warm and dry, Other (erythema that is limited to the back of the neck with clear cut-off at border of her shirt) - Extremities Extremities: No edema Results - Vitals Vitals: Vital Signs - 24 hr 11/30/16 11/30/16 11/30/16 22:25 23:15 23:26 Temperature 36.1 C L Heart Rate 115 H 94 82 Respiratory 22 18 16 Rate Blood Pressure 124/88 H 112/72 101/56 L O2 Saturation 100 99 99 12/01/16 00:08 Temperature Heart Rate 77 Respiratory 18 Rate Blood Pressure 95/61 O2 Saturation 98 Oxygen O2 Source Room air PD MEDICAL DECISION MAKING - ED course Complexity details: reviewed old records, re-evaluated patient, considered differential, d/w patient ED course: prior records and AARON form indicate h/o similar episodes which have generally responded to ativan and benadryl. Patient was given these medications in the ED and had resolution of her symptoms; prior to d/c, she is breathing regular and easy with no stridor, is comfortable with d/c Departure - Departure Disposition: 01 Home, Self Care Clinical Impression: Vocal cord dysfunction, Dyspnea Condition: Good Instructions: ED Allergic Reaction General Other Follow-Up: [facility] [Provider Group] [facility] [Provider Group] Prescriptions: Epinephrine [Epipen 2-Kolby] 0.3 mg IJ PRN PRN #1 auto.injct PRN Reason: Anaphylaxis Discharge Date/Time: 12/01/16 00:53
[2016-11-30] MEDS ORDERED: LORazepam 2 MG/ML SYRINGE IVP STA (22:41)
[2016-11-30] MEDS ORDERED: SODIUM CHLORIDE 0.9% 500 ML IV STA (22:41)
[2016-11-30] MEDS ORDERED: diphenhydrAMINE INJ 50 MG/ML VIAL IVP STA (22:42)
[2016-11-30] MEDS ORDERED: diphenhydrAMINE INJ 50 MG/ML VIAL ONE (22:54)
[2016-11-30] MEDS ORDERED: LORazepam 2 MG/ML SYRINGE ONE (22:55)
[2016-12-01 00:10] VITALS: BP 95/61
== END 2016-12-01 00:53 | disposition home or self-care (01) ==
LOC: EDUNIT# → ED 22:23
DX: R49.8 Other voice and resonance disorders (principal); R06.00 Dyspnea, unspecified
CPT/HCPCS: 96361; 96374; 96375; 99284; J2060; 80048; 85025

== ENCOUNTER 2016-12-13 16:35 | Outpatient (CLI) | payer MEDICAID | END 2016-12-13 16:36 | disposition critical access hospital (66) | LOC: EMS 16:35 | PROVIDERS: ATTEND Surgery | DX: R06.00 Dyspnea, unspecified (principal); W57.XXXA Bitten or stung by nonvenomous insect and other nonvenomous arthropods, initial encounter; Y92.810 Car as the place of occurrence of the external cause | CPT/HCPCS: A0425; A0427 ==

== ENCOUNTER 2016-12-13 17:03 | Emergency (ER) | payer MEDICAID ==
[2016-12-13] MEDS ORDERED: diphenhydrAMINE 25 MG CAPSULE PO STA (17:32)
[2016-12-13] MEDS ORDERED: predniSONE 20 MG TABLET PO STA (17:32)
[2016-12-13] MEDS ORDERED: predniSONE 20 MG TABLET ONE (17:39)
[2016-12-13] MEDS ORDERED: diphenhydrAMINE 25 MG CAPSULE PO ONE (17:39)
[2016-12-13] MEDS ORDERED: LORazepam 2 MG/ML SYRINGE IVP STA (18:02)
[2016-12-13] MEDS ORDERED: LORazepam 2 MG/ML SYRINGE ONE (18:04)
[2016-12-13] MEDS ORDERED: ALBUTEROL NEB 2.5 MG/3 ML INH STA (18:58)
[2016-12-13] MEDS ORDERED: RACEPINEPHRINE 2.25% NEB INH STA (19:03)
[2016-12-13] MEDS ORDERED: RACEPINEPHRINE 2.25% NEB INH ONE (19:04)
[2016-12-13] MEDS ORDERED: SODIUM CHLORIDE INHALATION 3 ML NEB ONE (19:04)
[2016-12-13] MEDS ORDERED: methylPREDNISolone SUCCINATE 125 MG/2 ML VIAL IVP STA (19:15)
[2016-12-13] MEDS ORDERED: diphenhydrAMINE INJ 50 MG/ML VIAL IVP STA (19:15)
[2016-12-13] MEDS ORDERED: diphenhydrAMINE INJ 50 MG/ML VIAL ONE (19:35)
[2016-12-13] MEDS ORDERED: methylPREDNISolone SUCCINATE 125 MG/2 ML VIAL IVP ONE (19:35)
--- NOTE | 2016-12-13 20:09 | ED Physician Documentation ---
History of Present Illness - Stated complaint Stated Complaint: BEE STING - ALLERGIC REACTION - Chief complaint Chief Complaint: Allergic Rx - History obtained from History obtained from: Patient - History of Present Illness Timing: Today Pain level max: 0 Pain level now: 0 Improved by: epi Worsened by: nothing - Additonal information Additional information: states stung by bee to the R thigh today. Used 2 epi pens and fire department gave her a third. She is now feeling improved. Was not given steroids or Benadryl by EMS. She states that her throat does still feel slightly tight. 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 : None HEENT: Chronic sinusitis Psych: None Musculoskeletal: None Derm: None - Past Surgical History Past Surgical History: Yes General: Appendectomy Ortho: Other /HOG TENDER: Other HEENT: Tonsil/Adenoidectomy - Present Medications Home Medications: Ambulatory Orders Medication Instructions Recorded Confirmed Dicyclomine [Bentyl] 10 mg PO QID #20 capsule 11/14/16 Epinephrine [Epipen 2-Kolby] 0.3 mg SQ PRN PRN #1 auto.injct 11/14/16 Gabapentin [Neurontin] 300 mg PO TID #90 capsule 11/14/16 Ondansetron Odt [Zofran Odt] 4 mg TL Q6HR PRN #30 tablet 11/14/16 Sucralfate 1 gm PO AC #30 tablet 11/14/16 diphenhydrAMINE [Benadryl] 25 mg PO Q4HR PRN #30 capsule 11/14/16 traMADol [Ultram] 50 mg PO Q4HR PRN #120 tablet 11/14/16 Epinephrine [Epipen 2-Kolby] 0.3 mg IJ PRN PRN #1 auto.injct 12/01/16 Alprazolam [Xanax] 0.5 mg PO TID PRN 12/13/16 12/13/16 Epinephrine [Epipen 2-Kolby] 0.3 mg IJ PRN PRN #1 auto.injct 12/13/16 Prednisone 40 mg PO DAILY #10 tablet 12/13/16 - Allergies Allergies/Adverse Reactions: Allergies Allergy/AdvReac Type Severity Reaction Status Date / Time aspirin Allergy Severe Anaphylaxis Verified 11/30/16 22:29 gelatin Allergy Severe Respiratory Verified 11/30/16 22:29 hydromorphone HCl * Allergy Severe Hives Verified 11/30/16 22:29 [From Dilaudid] morphine Allergy Severe Hives Verified 11/30/16 22:29 nitrofurantoin Allergy Severe Respiratory Verified 11/30/16 22:29 macrocrystalline * [From Macrobid] amoxicillin Allergy Anaphylaxis Verified 11/30/16 22:29 Beef Containing Products Allergy Anaphylaxis Verified 11/30/16 22:29 cinnamon Allergy Unknown Verified 11/30/16 22:29 famotidine [From Pepcid] Allergy Anaphylaxis Verified 11/30/16 22:29 fentanyl Allergy Unknown Verified 11/30/16 22:29 fluconazole Allergy Hives Verified 11/30/16 22:29 meperidine HCl * Allergy Anaphylaxis Verified 11/30/16 22:29 [From Demerol] Penicillins Allergy Anaphylaxis Verified 11/30/16 22:29 tamsulosin HCl * Allergy Unknown Verified 11/30/16 22:29 [From Flomax] tramadol Allergy Hives Verified 11/30/16 22:29 wheat Allergy Hives Verified 11/30/16 22:29 hydrocodone [Hydrocodone] AdvReac Severe Emesis Verified 11/30/16 22:29 butorphanol AdvReac Intermediate Anxiety Verified 11/30/16 22:29 adhesive AdvReac Rash Verified 11/30/16 22:29 fexofenadine AdvReac Edema Verified 11/30/16 22:29 NSAIDS (Non-Steroidal AdvReac Cramps Verified 11/30/16 22:29 Anti-Inflamma - Social History Does the pt smoke?: No Smoking Status: Never smoker Does the pt drink ETOH?: No Does the pt have substance abuse?: No - Immunizations Immunizations are current?: Yes - POLST Patient has POLST: No PD ED PE NORMAL - Vitals Vital signs reviewed: Yes - General General: Alert and oriented X 3, No acute distress, Well developed/nourished - HEENT HEENT: PERRL, Moist mucous membranes, Other (Mild posterior oropharyngeal erythema and swelling. Uvula midline. Normal phonation. No trismus. No stridor) - Neck Neck: Supple, no meningeal sign - Cardiac Cardiac: RRR - Respiratory Respiratory: No respiratory distress, Clear bilaterally - Abdomen Abdomen: Soft, Non tender - Derm Derm: Warm and dry, No rash - Extremities Extremities: No edema - Neuro Neuro: Alert and oriented X 3 - Psych Psych: Normal mood, Normal affect Results - Vitals Vitals: Vital Signs - 24 hr 12/13/16 12/13/16 12/13/16 17:05 18:06 18:33 Temperature 37.2 C 37.0 C Heart Rate 115 H 113 H 122 H Respiratory 15 22 22 Rate Blood Pressure 113/77 116/74 112/70 O2 Saturation 99 98 100 12/13/16 12/13/16 12/13/16 18:42 19:08 19:45 Temperature Heart Rate 125 H 147 H 126 H Respiratory 24 24 19 Rate Blood Pressure 112/70 102/70 O2 Saturation 98 98 12/13/16 20:26 Temperature 37.0 C Heart Rate 122 H Respiratory 16 Rate Blood Pressure 115/64 O2 Saturation 98 Oxygen O2 Source Room air PD MEDICAL DECISION MAKING - ED course Complexity details: reviewed old records, re-evaluated patient, considered differential, d/w patient ED course: Patient is a 31-year-old female who has an allergic reaction to bee sting tonight. She received several doses of intramuscular epinephrine prior to arrival. Treated with prednisone and Benadryl here. She began to feel her throat tightening again and this resolved with racemic epinephrine. Lungs were clear to auscultation on repeat evaluation. No stridor. She was also given a dose of Solu-Medrol and IV Benadryl at this time which resolved her symptoms. Observed in the emergency department for several hours without recurrence of symptoms. She states she would like to go home at this time and her boyfriend will be at home with her. Patient counseled regarding signs and symptoms for which I believe and urgent re-evaluation would be necessary. Patient with good understanding of and agreement to plan and is comfortable going home at this time This document was made in part using voice recognition software. While efforts are made to proofread this document, sound alike and grammatical errors may occur. Departure - Departure Disposition: 01 Home, Self Care Clinical Impression: Bee sting-induced anaphylaxis Qualifiers: Encounter type: initial encounter Injury intent: accidental or unintentional Qualified Code(s): T63.441A - Toxic effect of venom of bees, accidental ( unintentional), initial encounter Condition: Good Instructions: ED Bite Sting Insect Gen Allergic React Follow-Up: your,doctor in 1 week [Other] Prescriptions: Epinephrine [Epipen 2-Kolby] 0.3 mg IJ PRN PRN #1 auto.injct PRN Reason: Anaphylaxis Prednisone 40 mg PO DAILY #10 tablet Comments: Return if you worsen. This should continue to improve. Discharge Date/Time: 12/13/16 20:26
[2016-12-13 20:29] VITALS: BP 115/64
== END 2016-12-13 20:26 | disposition home or self-care (01) ==
LOC: EDUNIT# → ED 17:03
DX: T63.441A Toxic effect of venom of bees, accidental (unintentional), initial encounter (principal); X58.XXXA Exposure to other specified factors, initial encounter; R22.0 Localized swelling, mass and lump, head
CPT/HCPCS: 94640; 96374; 96375; 99284; A9270; J2060; J7512

== ENCOUNTER 2017-01-03 10:26 | Outpatient (CLI) | payer MEDICAID ==
--- NOTE | 2017-01-03 16:30 | XRAY Report ---
THREE-VIEW LEFT SHOULDER: 01/03/2017 CLINICAL INDICATION: Left shoulder pain. FINDINGS: Internal and external rotational views and a scapular Y view of the left shoulder demonstr ate no evidence of fracture or dislocation. The joint spaces are preserved. No radiopaque foreign b rafael is seen in the soft tissues. IMPRESSION: NORMAL LEFT SHOULDER. JOB #: [id number] EXT JOB #:[id number]
== END 2017-01-03 10:27 | disposition home or self-care (01) ==
LOC: DI 10:26
PROVIDERS: ATTEND Family Medicine
DX: M25.512 Pain in left shoulder (principal)

== ENCOUNTER 2017-01-29 19:49 | Emergency (ER) | payer MEDICAID ==
[2017-01-29] MEDS ORDERED: ALBUTEROL NEB 2.5 MG/3 ML INH STA (19:57)
[2017-01-29] MEDS ORDERED: ALBUTEROL NEB 2.5 MG/3 ML INH ONE (20:02)
[2017-01-29] MEDS ORDERED: DEXAMETHASONE 10 MG/ML VIAL PO STA (21:08)
[2017-01-29] MEDS ORDERED: diphenhydrAMINE 25 MG CAPSULE PO STA (21:08)
[2017-01-29 21:26] LABS: BILIRUBIN,URINE NEGATIVE (NEGATIVE)
[2017-01-29 21:28] LABS: HCG UR QUAL NEGATIVE; UA w/ MICROSCOPIC CHARGE YES
[2017-01-29] MEDS ORDERED: diphenhydrAMINE 25 MG CAPSULE PO ONE (21:32)
[2017-01-29] MEDS ORDERED: CHERRY SYRUP 10 ML UDC PO ONE (21:32)
[2017-01-29] MEDS ORDERED: DEXAMETHASONE 10 MG/ML VIAL ONE ×2 (21:32→21:39)
[2017-01-29 21:35] LABS: UR CULTURE IF IND NOT INDICATED
[2017-01-29 21:42] VITALS: BP 105/69
[2017-01-29] MEDS ORDERED: ONDANSETRON ODT 4 MG TABLET TL STA (21:42)
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
[2017-01-29] MEDS ORDERED: ONDANSETRON ODT 4 MG TABLET ONE (22:00)
[2017-01-29] MEDS ORDERED: CEPHALEXIN 250 MG CAPSULE PO STA (22:01)
[2017-01-29] MEDS ORDERED: CEPHALEXIN 250 MG CAPSULE PO ONE (22:10)
== END 2017-01-29 22:10 | disposition home or self-care (01) ==
LOC: ED 19:49
DX: J45.909 Unspecified asthma, uncomplicated (principal); N39.0 Urinary tract infection, site not specified
CPT/HCPCS: 81001; 81025; 99283; A9270; J7613; Q0162; 36415; 81003; 87086

== ENCOUNTER 2017-01-30 10:30 | Outpatient (CLI) | payer MEDICAID | END 2017-01-30 10:31 | disposition home or self-care (01) | LOC: LAB.R 10:30 | DX: Z53.9 Procedure and treatment not carried out, unspecified reason (principal) | CPT/HCPCS: 82270; 83630; 87045; 87046; 87177; 87209 ==

== ENCOUNTER 2017-02-18 09:02 | Emergency (ER) | payer MEDICAID ==
[2017-02-18 10:23] LABS: BILIRUBIN,URINE NEGATIVE (NEGATIVE); PH,URINE 7.5 PH (5.0-7.5)
[2017-02-18 10:25] LABS: UA w/ MICROSCOPIC CHARGE YES
--- NOTE | 2017-02-18 10:50 | ED Physician Documentation ---
PD HPI ABD PAIN - Stated complaint Stated Complaint: ABD PX, FEMALE - Chief complaint Chief Complaint: Abd Pain - History obtained from History obtained from: Patient - History of Present Illness Timing - onset: Yesterday Timing - duration: Days (couple days of not feeling well, with lower abd cramping pains. She had thought she did not get the whole of a tampon out several days ago and thought it might be from that. Having upper abd pain as well, which is common for her. Today with vomiting and nausea repetitively. Feeling some chills, no fevers per se.) Timing - details: Gradual onset, Still present Quality: Cramping, Aching Location: RLQ, Suprapubic, Other (and also some pains in upper abd, which is more common for her.) Improved by: No: Vomiting Worsened by: Eating, Palpation. No: Breathing Associated symptoms: Nausea, Vomiting, Loss of appetite, Vaginal dc. No: Fever , Diarrhea, Constipation, Dysuria, Chest pain Similar symptoms before: Diagnosis (has had ovarian cysts possibly causing pain. Has upper abd pains frequent and is getting scope next month to eval for possible immune such as celiac or Crohns.) Review of Systems Constitutional: reports: Chills, Myalgias. denies: Fever Nose: denies: Rhinorrhea / runny nose, Congestion Throat: denies: Sore throat Cardiac: denies: Chest pain / pressure, Palpitations Respiratory: denies: Cough GI: reports: Abdominal Pain, Nausea, Vomiting. denies: Abdominal Swelling, Diarrhea : reports: Discharge. denies: Dysuria, Frequency, Irregular menses Skin: denies: Rash, Lesions Neurologic: reports: Generalized weakness. 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 HEENT: Chronic sinusitis Psych: None Musculoskeletal: None Derm: None - Past Surgical History Past Surgical History: Yes General: Appendectomy Ortho: Other /TIRE BUILDING SUPERVISOR: Other HEENT: Tonsil/Adenoidectomy - Present Medications Home Medications: Ambulatory Orders Medication Instructions Recorded Confirmed Dicyclomine [Bentyl] 10 mg PO QID #20 capsule 11/14/16 Epinephrine [Epipen 2-Kolby] 0.3 mg SQ PRN PRN #1 auto.injct 11/14/16 Gabapentin [Neurontin] 300 mg PO TID #90 capsule 11/14/16 Ondansetron Odt [Zofran Odt] 4 mg TL Q6HR PRN #30 tablet 11/14/16 Sucralfate 1 gm PO AC #30 tablet 11/14/16 diphenhydrAMINE [Benadryl] 25 mg PO Q4HR PRN #30 capsule 11/14/16 traMADol [Ultram] 50 mg PO Q4HR PRN #120 tablet 11/14/16 Epinephrine [Epipen 2-Kolby] 0.3 mg IJ PRN PRN #1 auto.injct 12/01/16 Alprazolam [Xanax] 0.5 mg PO TID PRN 12/13/16 12/13/16 Epinephrine [Epipen 2-Kolby] 0.3 mg IJ PRN PRN #1 auto.injct 12/13/16 Prednisone 40 mg PO DAILY #10 tablet 12/13/16 Albuterol Sulfate [Proventil Hfa 1 - 2 puffs INH Q4H PRN #1 inhaler 01/29/17 Inhaler] Cephalexin [Keflex] 500 mg PO BID #10 capsule 01/29/17 Ondansetron Odt [Zofran] 4 mg TL Q6H PRN #14 tablet 01/29/17 Ondansetron Odt [Zofran] 4 mg TL Q6H PRN #15 tablet 02/18/17 Tramadol HCl 50 mg PO Q6H PRN #20 tablet 02/18/17 metroNIDAZOLE [Flagyl] 250 mg PO BID #14 tablet 02/18/17 - Allergies Allergies/Adverse Reactions: Allergies Allergy/AdvReac Type Severity Reaction Status Date / Time aspirin Allergy Severe Anaphylaxis Verified 02/18/17 09:18 gelatin Allergy Severe Respiratory Verified 02/18/17 09:18 hydromorphone HCl * Allergy Severe Hives Verified 02/18/17 09:18 [From Dilaudid] morphine Allergy Severe Hives Verified 02/18/17 09:18 nitrofurantoin Allergy Severe Respiratory Verified 02/18/17 09:18 macrocrystalline * [From Macrobid] amoxicillin Allergy Anaphylaxis Verified 02/18/17 09:18 Beef Containing Products Allergy Anaphylaxis Verified 02/18/17 09:18 cinnamon Allergy Unknown Verified 02/18/17 09:18 famotidine [From Pepcid] Allergy Anaphylaxis Verified 02/18/17 09:18 fentanyl Allergy Unknown Verified 02/18/17 09:18 fluconazole Allergy Hives Verified 02/18/17 09:18 meperidine HCl * Allergy Anaphylaxis Verified 02/18/17 09:18 [From Demerol] Penicillins Allergy Anaphylaxis Verified 02/18/17 09:18 tamsulosin HCl * Allergy Unknown Verified 02/18/17 09:18 [From Flomax] tramadol Allergy Hives Verified 02/18/17 09:18 wheat Allergy Hives Verified 02/18/17 09:18 hydrocodone [Hydrocodone] AdvReac Severe Emesis Verified 02/18/17 09:18 butorphanol AdvReac Intermediate Anxiety Verified 02/18/17 09:18 adhesive AdvReac Rash Verified 02/18/17 09:18 fexofenadine AdvReac Edema Verified 02/18/17 09:18 NSAIDS (Non-Steroidal AdvReac Cramps Verified 02/18/17 09:18 Anti-Inflamma - Social History Does the pt smoke?: No Smoking Status: Never smoker Does the pt drink ETOH?: No Does the pt have substance abuse?: No - Immunizations Immunizations are current?: Yes - POLST Patient has POLST: No PD ED PE NORMAL - Vitals Vital signs reviewed: Yes - General General: Alert and oriented X 3, Well developed/nourished - HEENT HEENT: PERRL, Ears normal, Moist mucous membranes, Pharynx benign - Neck Neck: Supple, no meningeal sign, No adenopathy - Cardiac Cardiac: RRR, No murmur - Respiratory Respiratory: No respiratory distress - Abdomen Abdomen: Normal bowel sounds, Non distended, No organomegaly, Other (tender some in upper abd without guarding nor percussion tnederness. Lower abd mid to right with some tenderness as well, no guarding nor percussion tenderness tehre either. ) - Female Female : Other (no vaginal FB seen. Mild watery discharge and some brownish menstrual-type blood. ) - Rectal Rectal: Deferred - Back Back: No CVA TTP - Derm Derm: Normal color - Extremities Extremities: Normal ROM s pain, No edema, No calf tenderness / cord - Neuro Neuro: Alert and oriented X 3, No motor deficit, Normal speech - Psych Psych: Normal mood, Normal affect Results - Vitals Vitals: Vital Signs - 24 hr 02/18/17 02/18/17 02/18/17 09:15 12:10 14:12 Temperature 36.5 C Heart Rate 74 79 75 Respiratory 14 18 16 Rate Blood Pressure 108/72 97/73 110/76 O2 Saturation 100 100 97 02/18/17 16:52 Temperature 37.0 C Heart Rate 70 Respiratory 16 Rate Blood Pressure 108/73 O2 Saturation 99 Oxygen O2 Source Room air - Labs Labs: Microbiology 02/18/17 13:07 Wet Prep - Final Vaginal Laboratory Tests 02/18/17 02/18/17 02/18/17 10:10 10:10 12:05 WBC 5.4 RBC 4.41 Hgb 12.4 Hct 37.2 MCV 84.5 MCH 28.1 MCHC 33.3 RDW 14.6 Plt Count 278 MPV 10.1 Neut # 2.4 Lymph # 2.1 [place] # 0.4 Eos # 0.4 Baso # 0.1 Absolute Nucleated RBC 0.00 Nucleated RBCs 0.1 Sodium Potassium Chloride Carbon Dioxide Anion Gap BUN Creatinine Estimated GFR (MDRD) Glucose Calcium Total Bilirubin AST ALT Alkaline Phosphatase Total Protein Albumin Globulin Albumin/Globulin Ratio Lipase Urine Color YELLOW Urine Clarity CLEAR Urine pH 7.5 Ur Specific [place] 1.020 1.020 Urine Protein NEGATIVE Urine Glucose (UA) NEGATIVE Urine Ketones NEGATIVE Urine Occult Blood LARGE H Urine Nitrite NEGATIVE Urine Bilirubin NEGATIVE Urine Urobilinogen 0.2 (NORMAL) Ur Leukocyte Esterase NEGATIVE Urine RBC 0-5 Urine WBC 4-5 Ur Squamous Epith Cells MOD Squamous H Urine Bacteria None Seen Ur Microscopic Review INDICATED Urine Culture Comments NOT INDICATED Urine HCG, Qual NEGATIVE 02/18/17 12:05 WBC RBC Hgb Hct MCV MCH MCHC RDW Plt Count MPV Neut # Lymph # [place] # Eos # Baso # Absolute Nucleated RBC Nucleated RBCs Sodium 138 Potassium 3.8 Chloride 108 Carbon Dioxide 24 Anion Gap 6.0 BUN 10 Creatinine 0.5 Estimated GFR (MDRD) 144 Glucose 89 Calcium 8.8 Total Bilirubin 0.5 AST 18 ALT 12 Alkaline Phosphatase 35 L Total Protein 6.8 Albumin 4.1 Globulin 2.7 Albumin/Globulin Ratio 1.5 Lipase 27 Urine Color Urine Clarity Urine pH Ur Specific [place] Urine Protein Urine Glucose (UA) Urine Ketones Urine Occult Blood Urine Nitrite Urine Bilirubin Urine Urobilinogen Ur Leukocyte Esterase Urine RBC Urine WBC Ur Squamous Epith Cells Urine Bacteria Ur Microscopic Review Urine Culture Comments Urine HCG, Qual - Rads (name of study) pelvic U/S Radiology: Prelim report reviewed (1.4 cm right cyst. Mild free fluids. Normal flow in ovaries. ) PD MEDICAL DECISION MAKING - ED course Complexity details: reviewed results, re-evaluated patient, considered differential, d/w patient Departure - Departure Disposition: Home, Self Care Clinical Impression: Abdominal pain, Pelvic pain, Bacterial vaginitis Condition: Stable Record reviewed to determine appropriate education?: Yes Instructions: ED Vaginosis Bacterial Follow-Up: Nadia Caballero PA-C [Primary Care Provider] - Prescriptions: metroNIDAZOLE [Flagyl] 250 mg PO BID #14 tablet Tramadol HCl 50 mg PO Q6H PRN #20 tablet PRN Reason: Pain Ondansetron Odt [Zofran] 4 mg TL Q6H PRN #15 tablet PRN Reason: Nausea / Vomiting Comments: Drink lots of fluids. Usual medications. Ondansetron for nausea. Continue tramadol for pain. Add metronidazole for the bacterial vaginitis. Follow-up with your primary care in the next few days if not better. Discharge Date/Time: 02/18/17 16:53
[2017-02-18 10:59] LABS: UR CULTURE IF IND NOT INDICATED
[2017-02-18 11:03] LABS: HCG UR QUAL NEGATIVE
[2017-02-18] MEDS ORDERED: SODIUM CHLORIDE 0.9% 1,000 ML IV ONE (11:23)
[2017-02-18] MEDS ORDERED: DICYCLOMINE 10 MG CAPSULE PO STA (11:24)
[2017-02-18] MEDS ORDERED: PROMETHAZINE INJ 12.5 MG in SODIUM CHLORIDE 0.9% 50 ML IV STA ×2 (11:24→15:49)
[2017-02-18] MEDS ORDERED: ACETAMINOPHEN 1,000 MG/100 ML 100 ML IV STA (11:24)
[2017-02-18] MEDS ORDERED: DICYCLOMINE 10 MG CAPSULE PO ONE (11:52)
[2017-02-18] MEDS ORDERED: PROMETHAZINE 25 MG/1 ML VIAL ONE ×2 (11:52→16:24)
[2017-02-18] MEDS ORDERED: SODIUM CHLORIDE 0.9% MINIBAG 100 ML IV ONE (11:52)
[2017-02-18] MEDS ORDERED: ACETAMINOPHEN 1,000 MG/100 ML 100 ML IV ONE (11:52)
[2017-02-18 12:17] LABS: BASOPHILS # (AUTO) 0.1 10^3/uL (0.0-0.1); BASOPHILS % (AUTO) 1.7 %; EOSINOPHILS # (AUTO) 0.4 10^3/uL (0.0-0.7); EOSINOPHILS % (AUTO) 6.6 %; HCT - HEMATOCRIT 37.2 % (37.0-47.0); HGB - HEMOGLOBIN 12.4 g/dL (12.0-16.0); LYMPHOCYTES # (AUTO) 2.1 10^3/uL (1.5-3.5); MEAN CORPUSCULAR HEMOGLOBIN 28.1 pg (27.0-31.0); MEAN CORPUSCULAR HGB CONC 33.3 g/dL (32.0-36.0); MEAN CORPUSCULAR VOLUME 84.5 fL (81.0-99.0); MEAN PLATELET VOLUME 10.1 fL (7.9-10.8); MONOCYTES # (AUTO) 0.4 10^3/uL (0.0-1.0); MONOCYTES % (AUTO) 7.7 %; NEUTROPHILS # (AUTO) 2.4 10^3/uL (1.5-6.6); NUCLEATED RED BLOOD CELLS AUTO 0.1 /100WBC; RED BLOOD COUNT 4.41 10^6/uL (4.20-5.40); RED CELL DISTRIBUTION WIDTH 14.6 % (12.0-15.0); UNCORRECTED WHITE BLOOD COUNT 5.4 x10^3/uL; WHITE BLOOD COUNT 5.4 x10^3/uL (4.8-10.8)
[2017-02-18 12:43] LABS: ALBUMIN/GLOBULIN RATIO 1.5 (1.0-2.2); BILIRUBIN,TOTAL 0.5 mg/dL (0.2-1.0); CALCIUM 8.8 mg/dL (8.5-10.3); CREATININE 0.5 mg/dL (0.4-1.0); POTASSIUM 3.8 mmol/L (3.5-5.0); TOTAL PROTEIN 6.8 g/dL (6.7-8.2)
[2017-02-18] MEDS ORDERED: HYDROmorphone 1 MG/ML SYRINGE IVP STA ×2 (13:13→15:48)
[2017-02-18] MEDS ORDERED: diphenhydrAMINE INJ 50 MG/ML VIAL IVP STA (13:13)
[2017-02-18] MEDS ORDERED: HYDROmorphone 1 MG/ML SYRINGE ONE ×2 (13:21→16:24)
[2017-02-18] MEDS ORDERED: SODIUM CHLORIDE FLUSH 0.9% 10 ML SYRINGE IVP ONE (13:21)
[2017-02-18] MEDS ORDERED: diphenhydrAMINE INJ 50 MG/ML VIAL ONE (13:21)
[2017-02-18] MEDS ORDERED: metroNIDAZOLE 250 MG TABLET PO STA (14:30)
[2017-02-18] MEDS ORDERED: metroNIDAZOLE 250 MG TABLET PO ONE (14:54)
[2017-02-18 16:53] VITALS: BP 108/73
--- NOTE | 2017-02-18 18:45 | Ultrasound Report ---
PELVIC ULTRASOUND: 02/18/2017 CLINICAL INDICATION: Lower abdominal pain. TECHNIQUE: Transabdominal pelvic ultrasound performed for global evaluation. Transvaginal pelvic ult rasound performed for detailed evaluation. Real-time scanning performed and static images obtained wi Doppler. FINDINGS: The uterus is anteverted, measuring 10.3 x 7.9 x 4.8 cm. Septation of he endometrial ana l is again noted. The endometrial echo complex measures 9 mm. No focal myometrial lesion is seen. The right ovary measures 2.8 x 2.0 x 1.7 cm, and demonstrates a 1.4 cm cyst. Normal flow is seen. T he left ovary measures 2.5 x 1.6 x 1.5 cm, and appears unremarkable. Normal flow is seen. A small a mount of free fluid is present in the cul-de-sac. IMPRESSION: A 1.4 CM RIGHT OVARIAN CYST. NORMAL BILATERAL OVARIAN FLOW. STABLE SEPTATED UTERUS. JOB #: [id number] EXT JOB #:
== END 2017-02-18 16:53 | disposition home or self-care (01) ==
LOC: ED 09:02
DX: N76.0 Acute vaginitis (principal); B96.89 Other specified bacterial agents as the cause of diseases classified elsewhere; R10.2 Pelvic and perineal pain; N83.201 Unspecified ovarian cyst, right side; Z87.11 Personal history of peptic ulcer disease; Z87.42 Personal history of other diseases of the female genital tract
CPT/HCPCS: 36415; 76830; 76856; 80053; 81001; 81025; 83690; 85025; 87210; 87491; 87591; 93976; 96365; 96366; 96375; 96376; 99284; A9270; J0131; J1170; J7040; 81003; 87086

== ENCOUNTER 2017-02-20 08:00 | Outpatient (CLI) | payer MEDICAID ==
[2017-02-25 22:51] LABS: TEST RESULT REPORT (())
== END 2017-02-20 23:59 | disposition home or self-care (01) ==
LOC: LAB.R 08:00
PROVIDERS: ATTEND Surgery
DX: R10.9 Unspecified abdominal pain (principal); K52.9 Noninfective gastroenteritis and colitis, unspecified
CPT/HCPCS: 81599; 82270; 83630; 87045; 87046; 87177; 87209; 89055

== ENCOUNTER 2017-02-21 06:19 | Day surgery (SDC) | payer MEDICAID ==
[2017-02-21 06:56] LABS: HCG UR QUAL NEGATIVE
[2017-02-21] MEDS ORDERED: LACTATED RINGERS 1,000 ML IV ONE (07:08)
[2017-02-21] MEDS ORDERED: MIDAZOLAM 2 MG/2 ML VIAL IVP ONE (08:30)
[2017-02-21] MEDS ORDERED: diphenhydrAMINE INJ 50 MG/ML VIAL IVP ONE (08:30)
[2017-02-21] MEDS ORDERED: LIDOCAINE-MPF 2% 5 ML VIAL IM ONE (08:30)
[2017-02-21] MEDS ORDERED: PROPOFOL 200 MG/20 ML VIAL IVP ONE (08:30)
[2017-02-21 09:32] VITALS: BP 110/62
== END 2017-02-21 06:20 | disposition home or self-care (01) ==
LOC: SDS 06:19
PROVIDERS: ATTEND Surgery
PROC: 0DB58ZX Excision of Esophagus, Via Natural or Artificial Opening Endoscopic, Diagnostic (ICD-10-PCS; 2017-02-21)
PROC: 0DB98ZX Excision of Duodenum, Via Natural or Artificial Opening Endoscopic, Diagnostic (ICD-10-PCS; principal; 2017-02-21 07:30)
DX: K44.9 Diaphragmatic hernia without obstruction or gangrene (principal); K20.9 Esophagitis, unspecified; K29.80 Duodenitis without bleeding; Z87.891 Personal history of nicotine dependence
CPT/HCPCS: 43239; 81025; J7120

== ENCOUNTER 2017-03-08 17:47 | Emergency (ER) | payer MEDICAID ==
[2017-03-08] MEDS ORDERED: RACEPINEPHRINE 2.25% NEB INH STA (17:55)
[2017-03-08] MEDS ORDERED: diphenhydrAMINE INJ 50 MG/ML VIAL IM STA (17:55)
[2017-03-08] MEDS ORDERED: EPINEPHrine 1 MG/ML AMP IM STA ×2 (17:55→18:32)
--- NOTE | 2017-03-08 17:57 | ED Physician Documentation ---
PD HPI DYSPNEA - Stated complaint Stated Complaint: ALLERGIC REACTION - History obtained from History obtained from: Patient - History of Present Illness Timing - onset: Today (just FRONT DESK MONITOR) Timing - onset during: Light activity Timing - duration: Minutes Timing - details: Abrupt onset, Still present Inciting event(s): Allergic rxn/anaphylaxis (she had some icecream but was a flavor that she thought would not have foods she is allergic to.). No: Out of meds, URI Improved by: No: Benadryl Worsened by: Exertion, Allergens Associated symptoms: Cough, Chest pain / discomfort, Unilateral edema. 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 HEENT: Chronic sinusitis Psych: None Musculoskeletal: None Derm: None - Past Surgical History Past Surgical History: Yes General: Appendectomy Ortho: Other /THROW OUT CLERK: Other HEENT: Tonsil/Adenoidectomy - Present Medications Home Medications: Ambulatory Orders Medication Instructions Recorded Confirmed Dicyclomine [Bentyl] 10 mg PO QID #20 capsule 11/14/16 02/21/17 Gabapentin [Neurontin] 300 mg PO TID #90 capsule 11/14/16 02/21/17 Sucralfate 1 gm PO AC #30 tablet 11/14/16 02/21/17 diphenhydrAMINE [Benadryl] 25 mg PO Q4HR PRN #30 capsule 11/14/16 02/21/17 traMADol [Ultram] 50 mg PO Q4HR PRN #120 tablet 11/14/16 02/21/17 Alprazolam [Xanax] 0.5 mg PO TID PRN 12/13/16 02/21/17 Prednisone 40 mg PO DAILY #10 tablet 12/13/16 02/21/17 Albuterol Sulfate [Proventil Hfa 1 - 2 puffs INH Q4H PRN #1 inhaler 01/29/1707/09 Inhaler] Ondansetron Odt [Zofran] 4 mg TL Q6H PRN #14 tablet 01/29/17 02/21/17 metroNIDAZOLE [Flagyl] 250 mg PO BID #14 tablet 02/18/17 02/21/17 Dexamethasone [Decadron] 4 mg PO DAILY #5 tablet 03/08/17 - Allergies Allergies/Adverse Reactions: Allergies Allergy/AdvReac Type Severity Reaction Status Date / Time aspirin Allergy Severe Anaphylaxis Verified 02/18/17 09:18 gelatin Allergy Severe Respiratory Verified 02/18/17 09:18 hydromorphone HCl * Allergy Severe Hives Verified 02/18/17 09:18 [From Dilaudid] morphine Allergy Severe Hives Verified 02/18/17 09:18 nitrofurantoin Allergy Severe Respiratory Verified 02/18/17 09:18 macrocrystalline * [From Macrobid] amoxicillin Allergy Anaphylaxis Verified 02/18/17 09:18 Beef Containing Products Allergy Anaphylaxis Verified 02/18/17 09:18 cinnamon Allergy Unknown Verified 02/18/17 09:18 famotidine [From Pepcid] Allergy Anaphylaxis Verified 02/18/17 09:18 fentanyl Allergy Unknown Verified 02/18/17 09:18 fluconazole Allergy Hives Verified 02/18/17 09:18 meperidine HCl * Allergy Anaphylaxis Verified 02/18/17 09:18 [From Demerol] Penicillins Allergy Anaphylaxis Verified 02/18/17 09:18 tamsulosin HCl * Allergy Unknown Verified 02/18/17 09:18 [From Flomax] tramadol Allergy Hives Verified 02/18/17 09:18 wheat Allergy Hives Verified 02/18/17 09:18 hydrocodone [Hydrocodone] AdvReac Severe Emesis Verified 02/18/17 09:18 butorphanol AdvReac Intermediate Anxiety Verified 02/18/17 09:18 adhesive AdvReac Rash Verified 02/18/17 09:18 fexofenadine AdvReac Edema Verified 02/18/17 09:18 NSAIDS (Non-Steroidal AdvReac Cramps Verified 02/18/17 09:18 Anti-Inflamma - Social History Does the pt smoke?: No Smoking Status: Never smoker Does the pt drink ETOH?: No Does the pt have substance abuse?: No - Immunizations Immunizations are current?: Yes - POLST Patient has POLST: No PD ED PE NORMAL - Vitals Vital signs reviewed: Yes - General General: Alert and oriented X 3, Well developed/nourished, Other (audible wheezing and stridoring without visible edema in tongue/lips/uvula. No abd excursions. ) - HEENT HEENT: Atraumatic, Moist mucous membranes, Pharynx benign (no noted edema of lips, tongue, pallate, nor uvula. ) - Neck Neck: Supple, no meningeal sign, No adenopathy - Cardiac Cardiac: RRR (tachycardic), No murmur - Respiratory Respiratory: Other (some wheezing noted bilaterally. No coarse sounds. ) - Abdomen Abdomen: Soft, Non tender - Back Back: No CVA TTP - Derm Derm: Normal color, Warm and dry, Other (reddened skin without welts around neckline, sides of neck and some to upper back. No edema. 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 No: Normal speech (some hoarseness initially. ) Results - Vitals Vitals: Vital Signs - 24 hr 03/08/17 03/08/17 03/08/17 17:55 17:59 20:39 Temperature 36.8 C Heart Rate 120 H 100 109 H Respiratory 20 32 H 18 Rate Blood Pressure 126/83 H 111/77 O2 Saturation 96 98 Oxygen O2 Source Room air PD MEDICAL DECISION MAKING - ED course Complexity details: re-evaluated patient (doing much better after several meds IM (did not have IV established at first). Also racemic epi neb. Slow improvement over time. IV established and given steroid and more benadryl. She is subsequently feeling better and asks to be discharged, with prior episodes not having notable rebound after treatments. ), considered differential, d/w patient Departure - Departure Disposition: Home, Self Care Clinical Impression: Allergic reaction Qualifiers: Encounter type: initial encounter Qualified Code(s): T78.40XA - Allergy, unspecified, initial encounter Anaphylaxis Qualifiers: Encounter type: initial encounter Qualified Code(s): T78.2XXA - Anaphylactic shock, unspecified, initial encounter Condition: Stable Record reviewed to determine appropriate education?: Yes Instructions: ED Allergic Reaction General Other Prescriptions: Dexamethasone [Decadron] 4 mg PO DAILY #5 tablet Comments: Usual medications at home. Continue steroids daily for 5 more days. Benadryl every 6 hours as needed for itchiness. Return if worse. Discharge Date/Time: 03/08/17 20:45
[2017-03-08] MEDS ORDERED: EPINEPHrine 1 MG/ML AMP ONE ×2 (17:58→18:48)
[2017-03-08] MEDS ORDERED: diphenhydrAMINE INJ 50 MG/ML VIAL ONE ×2 (17:58→19:42)
[2017-03-08] MEDS ORDERED: diazePAM INJ 5 MG/ML SYRINGE IM STA (17:58)
[2017-03-08] MEDS ORDERED: SODIUM CHLORIDE INHALATION 3 ML NEB ONE (18:00)
[2017-03-08] MEDS ORDERED: RACEPINEPHRINE 2.25% NEB INH ONE (18:00)
[2017-03-08] MEDS ORDERED: diazePAM INJ 5 MG/ML SYRINGE ONE ×2 (18:10→19:27)
[2017-03-08] MEDS ORDERED: ALBUTEROL NEB 2.5 MG/3 ML INH STA (18:33)
[2017-03-08] MEDS ORDERED: DEXAMETHASONE 10 MG/ML VIAL IVP STA (18:46)
[2017-03-08] MEDS ORDERED: DEXAMETHASONE 10 MG/ML VIAL ONE (18:57)
[2017-03-08] MEDS ORDERED: ALBUTEROL NEB 2.5 MG/3 ML INH ONE (18:58)
[2017-03-08] MEDS ORDERED: SODIUM CHLORIDE FLUSH 0.9% 10 ML SYRINGE IVP ONE (18:58)
[2017-03-08] MEDS ORDERED: diazePAM INJ 5 MG/ML SYRINGE IVP STA (19:02)
[2017-03-08] MEDS ORDERED: diphenhydrAMINE INJ 50 MG/ML VIAL IVP STA (19:33)
[2017-03-08 20:39] VITALS: BP 111/77
== END 2017-03-08 20:45 | disposition home or self-care (01) ==
LOC: ED 17:47
DX: T78.00XA Anaphylactic reaction due to unspecified food, initial encounter (principal); J45.909 Unspecified asthma, uncomplicated
CPT/HCPCS: 94640; 96372; 96374; 96375; 99283; 99284; A9270; J7613

== ENCOUNTER 2017-03-23 10:36 | Emergency (ER) | payer MEDICAID ==
[2017-03-23] MEDS ORDERED: DEXAMETHASONE 10 MG/ML VIAL ONE (10:49)
[2017-03-23] MEDS ORDERED: RACEPINEPHRINE 2.25% NEB INH STA (10:50)
[2017-03-23] MEDS ORDERED: DEXAMETHASONE 10 MG/ML VIAL PO STA (10:50)
--- NOTE | 2017-03-23 10:53 | ED Physician Documentation ---
PD HPI DYSPNEA - Stated complaint Stated Complaint: ALLERGIC REACTION/SOA - Chief complaint Chief Complaint: Allergic Rx - History obtained from History obtained from: Patient - History of Present Illness Timing - onset: Today Timing - onset during: Rest Timing - duration: Minutes Timing - details: Abrupt onset, Still present Inciting event(s): Allergic rxn/anaphylaxis, FB / choking Improved by: Rest, Sitting up Worsened by: Exertion Associated symptoms: Cough, Wheezing, Chest pain / discomfort Similar symptoms before: Diagnosis (layrngeo spasm) Recently seen: Emergency Dept - Additional information Additional information: 31-year-old female with a history of reflux has been recently seen for episodes of laryngeal spasm requiring administration of racemic epinephrine. She was seen here 2 weeks ago for an episode after she ate some ice cream. She has thought these episodes are related to foods that she is eating. She has a acute onset of stridor this morning. Review of Systems Constitutional: denies: Fever Ears: denies: Ear pain Nose: denies: Congestion Respiratory: reports: Dyspnea. 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 HEENT: Chronic sinusitis Psych: None Musculoskeletal: None Derm: None - Past Surgical History Past Surgical History: Yes General: Appendectomy Ortho: Other /FOOT SETTER: Other HEENT: Tonsil/Adenoidectomy - Present Medications Home Medications: Ambulatory Orders Medication Instructions Recorded Confirmed Gabapentin [Neurontin] 300 mg PO TID #90 capsule 11/14/16 03/23/17 Sucralfate 1 gm PO AC #30 tablet 11/14/16 03/23/17 diphenhydrAMINE [Benadryl] 25 mg PO Q4HR PRN #30 capsule 11/14/16 03/23/17 traMADol [Ultram] 50 mg PO Q4HR PRN #120 tablet 11/14/16 03/23/17 Albuterol Sulfate [Proventil Hfa 1 - 2 puffs INH Q4H PRN #1 inhaler 01/29/1707/09 Inhaler] Ondansetron Odt [Zofran] 4 mg TL Q6H PRN #14 tablet 01/29/17 03/23/17 Epinephrine [Epipen 2-Kolby] 0.3 mg IJ ONCE PRN #2 auto.injct 03/23/17 - Allergies Allergies/Adverse Reactions: Allergies Allergy/AdvReac Type Severity Reaction Status Date / Time aspirin Allergy Severe Anaphylaxis Verified 03/23/17 10:50 gelatin Allergy Severe Respiratory Verified 03/23/17 10:50 hydromorphone HCl * Allergy Severe Hives Verified 03/23/17 10:50 [From Dilaudid] morphine Allergy Severe Hives Verified 03/23/17 10:50 nitrofurantoin Allergy Severe Respiratory Verified 03/23/17 10:50 macrocrystalline * [From Macrobid] amoxicillin Allergy Anaphylaxis Verified 03/23/17 10:50 Beef Containing Products Allergy Anaphylaxis Verified 03/23/17 10:50 cinnamon Allergy Unknown Verified 03/23/17 10:50 famotidine [From Pepcid] Allergy Anaphylaxis Verified 03/23/17 10:50 fentanyl Allergy Unknown Verified 03/23/17 10:50 fluconazole Allergy Hives Verified 03/23/17 10:50 meperidine HCl * Allergy Anaphylaxis Verified 03/23/17 10:50 [From Demerol] Penicillins Allergy Anaphylaxis Verified 03/23/17 10:50 tamsulosin HCl * Allergy Unknown Verified 03/23/17 10:50 [From Flomax] tramadol Allergy Hives Verified 03/23/17 10:50 wheat Allergy Hives Verified 03/23/17 10:50 hydrocodone [Hydrocodone] AdvReac Severe Emesis Verified 03/23/17 10:50 butorphanol AdvReac Intermediate Anxiety Verified 03/23/17 10:50 adhesive AdvReac Rash Verified 03/23/17 10:50 fexofenadine AdvReac Edema Verified 03/23/17 10:50 NSAIDS (Non-Steroidal AdvReac Cramps Verified 03/23/17 10:50 Anti-Inflamma - Social History Does the pt smoke?: No Smoking Status: Never smoker Does the pt drink ETOH?: No Does the pt have substance abuse?: No - Immunizations Immunizations are current?: Yes - POLST Patient has POLST: No PD ED PE NORMAL - Vitals Vital signs reviewed: Yes (Hypertensive) - General General: Well developed/nourished, Other (31-year-old female gasping for breath with stridor obvious.) - HEENT HEENT: Atraumatic, PERRL, EOMI, Other (inflamation along the umbo on the right. ) - Neck Neck: Supple, no meningeal sign, No bony TTP, Thyroid normal - Cardiac Cardiac: RRR, No murmur - Respiratory Respiratory: Other (stridor is present the lungs are with diminished but clear breath sounds ) - Abdomen Abdomen: Soft, Non tender - Back Back: No CVA TTP, No spinal TTP - Derm Derm: Normal color, Warm and dry, No rash - Extremities Extremities: No deformity, No edema - Neuro Neuro: No motor deficit, No sensory deficit - Psych Psych: Normal mood Results - Vitals Vitals: Vital Signs - 24 hr 03/23/17 03/23/17 03/23/17 10:47 11:00 11:50 Temperature 36.4 C L Heart Rate 67 88 87 Respiratory 24 16 16 Rate Blood Pressure 113/85 H 95/68 O2 Saturation 99 98 03/23/17 03/23/17 13:38 15:31 Temperature Heart Rate 98 102 H Respiratory 16 17 Rate Blood Pressure 95/64 106/75 O2 Saturation 99 98 Oxygen O2 Source Room air - Rads (name of study) 2 view chest Radiology: Prelim report reviewed (Impression: Normal two-view chest radiography.), EMP read indepedently, See rad report PD MEDICAL DECISION MAKING - ED course Complexity details: reviewed old records, reviewed results, re-evaluated patient , considered differential, d/w patient, d/w family ED course: 31-year-old female with a history of recurrent vocal cord dysfunction develops stridor and here in the emergency department she has obvious stridor and this is accompanied by hypoxia. She is administered dexamethasone and a racemic epinephrine treatment and Ativan. It does appear that the Ativan helps with the stridor. On review of the patient's chart it appears she has had these episodes of stridor for several years and the exact etiology of the underlying problem has never been discerned for certain. She has been treated for allergy and for vocal cord dysfunction and she has been treated for anxiety as well. She does have a history of reflux and apparently has significant signs of reflux in her esophagus. Today it did appear that the episode started with a episode of reflux and persisted. She required 2 doses of Ativan and eventually after about 4 hours her symptoms resolved. Departure - Departure Disposition: 01 Home, Self Care Clinical Impression: Inspiratory stridor Condition: Stable Instructions: ED Dyspnea Shortness of Breath Follow-Up: [facility] [Provider Group] Prescriptions: Epinephrine [Epipen 2-Kolby] 0.3 mg IJ ONCE PRN #2 auto.injct PRN Reason: Anaphylaxis Discharge Date/Time: 03/23/17 15:52
[2017-03-23] MEDS ORDERED: SODIUM CHLORIDE INHALATION 3 ML NEB ONE (10:58)
[2017-03-23] MEDS ORDERED: RACEPINEPHRINE 2.25% NEB INH ONE (10:58)
[2017-03-23] MEDS ORDERED: LORazepam 2 MG/ML SYRINGE IVP STA ×2 (11:11→13:17)
[2017-03-23] MEDS ORDERED: LORazepam 2 MG/ML SYRINGE ONE ×2 (11:16→13:23)
--- NOTE | 2017-03-23 11:54 | XRAY Preliminary Report ---
Exam: XR Chest 2 View PA/LAT IMPRESSION: Normal 2-view chest radiography. [facility] SITE ID: [id number]
--- NOTE | 2017-03-23 11:57 | XRAY Report ---
EXAM: CHEST RADIOGRAPHY EXAM DATE: 03/23/2017 11:36 AM. CLINICAL HISTORY: 31-year-old woman with shortness of breath. COMPARISON: 03/07/2016. TECHNIQUE: 2 views. FINDINGS: Lungs/Pleura: No focal opacities evident. No pleural effusion. No pneumothorax. Normal volumes. Mediastinum: Heart and mediastinal contours are unremarkable. Other: None. IMPRESSION: Normal 2-view chest radiography. [facility] Referring Provider Line: [phone] SITE ID: [id number]
[2017-03-23] MEDS ORDERED: SODIUM CHLORIDE FLUSH 0.9% 10 ML SYRINGE IVP ONE (13:24)
[2017-03-23 15:32] VITALS: BP 106/75
== END 2017-03-23 15:52 | disposition home or self-care (01) ==
LOC: ED 10:36
DX: R06.1 Stridor (principal); R09.02 Hypoxemia; Z87.11 Personal history of peptic ulcer disease; Z87.42 Personal history of other diseases of the female genital tract
CPT/HCPCS: 36415; 71020; 94640; 96374; 96376; 99283; 99284; A9270; J2060; 80053; 83690; 84484; 85025

== ENCOUNTER 2017-05-06 18:40 | Emergency (ER) | payer MEDICAID ==
[2017-05-06] MEDS ORDERED: DEXAMETHASONE 10 MG/ML VIAL IVP STA (18:46)
[2017-05-06] MEDS ORDERED: EPINEPHrine 1 MG/ML AMP IM STA (18:46)
[2017-05-06] MEDS ORDERED: SODIUM CHLORIDE 0.9% 1,000 ML IV ONE (18:47)
[2017-05-06] MEDS ORDERED: diphenhydrAMINE INJ 50 MG/ML VIAL IVP STA (18:47)
[2017-05-06] MEDS ORDERED: RACEPINEPHRINE 2.25% NEB INH STA (18:49)
[2017-05-06] MEDS ORDERED: ONDANSETRON 4 MG/2 ML VIAL IVP STA (18:51)
[2017-05-06] MEDS ORDERED: LORazepam 2 MG/ML SYRINGE IVP STA ×2 (18:52→19:42)
[2017-05-06] MEDS ORDERED: EPINEPHrine 1 MG/ML AMP ONE (18:53)
[2017-05-06] MEDS ORDERED: DEXAMETHASONE 10 MG/ML VIAL ONE (18:53)
[2017-05-06] MEDS ORDERED: diphenhydrAMINE INJ 50 MG/ML VIAL ONE (18:53)
--- NOTE | 2017-05-06 18:54 | ED Physician Documentation ---
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 Review of Systems Constitutional: denies: Fever Throat: denies: Sore throat Respiratory: reports: Dyspnea : denies: Now EGA (denies) Endocrine: denies: Easy bruising / bleeding Immunocompromised: denies: Immunocompromised PD PAST MEDICAL HISTORY - Past Medical History Cardiovascular: Other Respiratory: Other Neuro: Other Endocrine/Autoimmune: None GI: Ulcers 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 : None HEENT: Chronic sinusitis Psych: None Musculoskeletal: None Derm: None - Past Surgical History Past Surgical History: Yes General: Appendectomy Ortho: Other /HEAD FILTER PRESS TENDER: Other HEENT: Tonsil/Adenoidectomy - Present Medications Home Medications: Ambulatory Orders Medication Instructions Recorded Confirmed Gabapentin [Neurontin] 300 mg PO TID #90 capsule 11/14/16 05/06/17 Sucralfate 1 gm PO AC #30 tablet 11/14/16 05/06/17 diphenhydrAMINE [Benadryl] 25 mg PO Q4HR PRN #30 capsule 11/14/16 05/06/17 traMADol [Ultram] 50 mg PO Q4HR PRN #120 tablet 11/14/16 05/06/17 Albuterol Sulfate [Proventil Hfa 1 - 2 puffs INH Q4H PRN #1 inhaler 01/29/17 Inhaler] Ondansetron Odt [Zofran] 4 mg TL Q6H PRN #14 tablet 01/29/17 05/06/17 Epinephrine [Epipen 2-Kolby] 0.3 mg IJ ONCE PRN #2 auto.injct 03/23/17 05/06/17 Alprazolam [Xanax] 0.5 mg PO DAILY PRN 05/06/17 05/06/17 Cetirizine [ZyrTEC] 10 mg PO DAILY #3 tablet 05/06/17 Epinephrine [Epipen 2-Kolby] 0.3 mg IJ ONCE PRN #2 unit 05/06/17 - Allergies Allergies/Adverse Reactions: Allergies Allergy/AdvReac Type Severity Reaction Status Date / Time aspirin Allergy Severe Anaphylaxis Verified 03/23/17 10:50 gelatin Allergy Severe Respiratory Verified 03/23/17 10:50 hydromorphone HCl * Allergy Severe Hives Verified 03/23/17 10:50 [From Dilaudid] morphine Allergy Severe Hives Verified 03/23/17 10:50 nitrofurantoin Allergy Severe Respiratory Verified 03/23/17 10:50 macrocrystalline * [From Macrobid] amoxicillin Allergy Anaphylaxis Verified 03/23/17 10:50 Beef Containing Products Allergy Anaphylaxis Verified 03/23/17 10:50 cinnamon Allergy Unknown Verified 03/23/17 10:50 famotidine [From Pepcid] Allergy Anaphylaxis Verified 03/23/17 10:50 fentanyl Allergy Unknown Verified 03/23/17 10:50 fluconazole Allergy Hives Verified 03/23/17 10:50 meperidine HCl * Allergy Anaphylaxis Verified 03/23/17 10:50 [From Demerol] Penicillins Allergy Anaphylaxis Verified 03/23/17 10:50 prednisone Allergy Anaphylaxis Verified 05/06/17 22:08 tamsulosin HCl * Allergy Unknown Verified 03/23/17 10:50 [From Flomax] tramadol Allergy Hives Verified 03/23/17 10:50 wheat Allergy Hives Verified 03/23/17 10:50 hydrocodone [Hydrocodone] AdvReac Severe Emesis Verified 03/23/17 10:50 butorphanol AdvReac Intermediate Anxiety Verified 03/23/17 10:50 adhesive AdvReac Rash Verified 03/23/17 10:50 fexofenadine AdvReac Edema Verified 03/23/17 10:50 NSAIDS (Non-Steroidal AdvReac Cramps Verified 03/23/17 10:50 Anti-Inflamma paprika AdvReac Anaphylaxis Verified 05/06/17 19:50 - Social History Does the pt smoke?: No Smoking Status: Never smoker Does the pt drink ETOH?: No Does the pt have substance abuse?: No - Immunizations Immunizations are current?: Yes - POLST Patient has POLST: No PD ED PE NORMAL - Vitals Vital signs reviewed: Yes - HEENT HEENT: Other (no oral edema) - Cardiac Cardiac: RRR - Respiratory Respiratory: No respiratory distress, Clear bilaterally, Other (stridor) - Derm Derm: Warm and dry (no hives) Results - Vitals Vitals: Vital Signs - 24 hr 05/06/17 05/06/17 05/06/17 18:58 19:00 19:02 Temperature 36.6 C Heart Rate 20 L 110 H 110 H Respiratory 28 H 24 18 Rate Blood Pressure 106/84 H 106/84 H O2 Saturation 100 100 05/06/17 05/06/17 05/06/17 19:45 20:00 20:15 Temperature Heart Rate 124 H 126 H 121 H Respiratory 22 24 18 Rate Blood Pressure 131/105 H 126/74 119/77 O2 Saturation 100 100 100 05/06/17 05/06/17 05/06/17 20:38 21:21 21:50 Temperature Heart Rate 113 H 101 H 92 Respiratory 15 17 18 Rate Blood Pressure 119/77 115/77 119/87 H O2 Saturation 100 100 99 Oxygen O2 Source Room air PD MEDICAL DECISION MAKING - ED course ED course: pt with stridor but no other s/sx of anaphylaxis has AARON advising hx of same in past without findings on intubation scope and advising against airway intervention given epi and racemic epi and benadryl and steroids and artivan with resolution watched several hr s re-occurance at dc pt states she cannot take prednisone 2/2 allergy - it isn't on her allrgy list - I asked her what rxn she has and she does not know - so told her just to take the zyrtec Departure - Departure Disposition: 01 Home, Self Care Clinical Impression: Stridor Condition: Good Instructions: ED Allergic Reaction General Other Prescriptions: Cetirizine [ZyrTEC] 10 mg PO DAILY #3 tablet Epinephrine [Epipen 2-Kolby] 0.3 mg IJ ONCE PRN #2 unit PRN Reason: Anaphylaxis predniSONE [Deltasone] 60 mg PO DAILY 3 Days #9 tablet Comments: Take the zyrtec and prednsione for three more days Please follow up with your PMD tomorrow Always carry your epi pen
[2017-05-06] MEDS ORDERED: RACEPINEPHRINE 2.25% NEB INH ONE (18:57)
[2017-05-06] MEDS ORDERED: ONDANSETRON 4 MG/2 ML VIAL ONE (18:59)
[2017-05-06] MEDS ORDERED: LORazepam 2 MG/ML SYRINGE ONE ×2 (19:01→20:00)
[2017-05-06 22:09] VITALS: BP 119/87
== END 2017-05-06 22:10 | disposition home or self-care (01) ==
LOC: ED 18:40
DX: T78.49XA Other allergy, initial encounter (principal); X58.XXXA Exposure to other specified factors, initial encounter; R06.1 Stridor
CPT/HCPCS: 94640; 96361; 96372; 96374; 96375; 96376; 99284; A9270; J2060

== ENCOUNTER 2017-06-02 16:20 | Emergency (ER) | payer MEDICAID ==
[2017-06-02 17:13] LABS: BASOPHILS # (AUTO) 0.1 10^3/uL (0.0-0.1); BASOPHILS % (AUTO) 1.2 %; EOSINOPHILS # (AUTO) 0.7 10^3/uL (0.0-0.7); EOSINOPHILS % (AUTO) 9.2 %; HCT - HEMATOCRIT 42.5 % (37.0-47.0); LYMPHOCYTES # (AUTO) 2.1 10^3/uL (1.5-3.5); LYMPHOCYTES % (AUTO) 27.1 %; MEAN CORPUSCULAR HEMOGLOBIN 28.3 pg (27.0-31.0); MEAN CORPUSCULAR HGB CONC 32.9 g/dL (32.0-36.0); MEAN PLATELET VOLUME 10.1 fL (7.9-10.8); MONOCYTES # (AUTO) 0.4 10^3/uL (0.0-1.0); MONOCYTES % (AUTO) 5.6 %; NEUTROPHILS # (AUTO) 4.4 10^3/uL (1.5-6.6); NEUTROPHILS % (AUTO) 56.9 %; NUCLEATED RED BLOOD CELLS AUTO 0.1 /100WBC; RED BLOOD COUNT 4.94 10^6/uL (4.20-5.40); RED CELL DISTRIBUTION WIDTH 14.9 % (12.0-15.0); UNCORRECTED WHITE BLOOD COUNT 7.8 x10^3/uL; WHITE BLOOD COUNT 7.8 x10^3/uL (4.8-10.8)
[2017-06-02 17:19] LABS: PT - PROTHROMBIN TIME 11.8 secs (9.9-12.6)
[2017-06-02 17:26] LABS: ALBUMIN/GLOBULIN RATIO 1.3 (1.0-2.2); BILIRUBIN,TOTAL 0.4 mg/dL (0.2-1.0); CALCIUM 9.7 mg/dL (8.5-10.3); CREATININE 0.6 mg/dL (0.4-1.0); PARTIAL THROMBOPLASTIN TIME 26.6 secs (24.9-33.3); POTASSIUM 3.7 mmol/L (3.5-5.0); TOTAL PROTEIN 8.1 g/dL (6.7-8.2)
--- NOTE | 2017-06-02 18:08 | ED Physician Documentation ---
History of Present Illness - Stated complaint Stated Complaint: FEMALE - Chief complaint Chief Complaint: General - History obtained from History obtained from: Patient, Family - History of Present Illness Timing: How many days ago (2) Pain level max: 7 Pain level now: 7 Improved by: nothing Worsened by: nothing - Additonal information Additional information: Patient is a 31-year-old female who presents to the emergency department with heavy menstrual bleeding for the past 48 hours. She states she has gone through multiple tampons, approximately 20 in 48 hours. States she is also " not feeling well". No lightheadedness or dizziness. She did have some slight chest tightness. This is not unusual for her. She states that she had a tubal ligation several months ago. States her power manager has been talking about a hysterectomy for possible fibroids. She sees gynecology and in [place]. Review of Systems Constitutional: denies: Fever, Chills Ears: denies: Ear pain Nose: denies: Rhinorrhea / runny nose, Congestion Respiratory: denies: Cough GI: denies: Nausea, Vomiting, Diarrhea : reports: Vaginal bleeding. 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 : None HEENT: Chronic sinusitis Psych: None Musculoskeletal: None Derm: None - Past Surgical History Past Surgical History: Yes General: Appendectomy Ortho: Other /OUTPATIENT INTERVIEWING CLERK: Other HEENT: Tonsil/Adenoidectomy - Present Medications Home Medications: Ambulatory Orders Medication Instructions Recorded Confirmed Gabapentin [Neurontin] 300 mg PO TID #90 capsule 11/14/16 06/02/17 Sucralfate 1 gm PO AC #30 tablet 11/14/16 05/06/17 diphenhydrAMINE [Benadryl] 25 mg PO Q4HR PRN #30 capsule 11/14/16 06/02/17 traMADol [Ultram] 50 mg PO Q4HR PRN #120 tablet 11/14/16 06/02/17 Albuterol Sulfate [Proventil Hfa 1 - 2 puffs INH Q4H PRN #1 inhaler 01/29/1705/09 Inhaler] Ondansetron Odt [Zofran] 4 mg TL Q6H PRN #14 tablet 01/29/17 06/02/17 Epinephrine [Epipen 2-Kolby] 0.3 mg IJ ONCE PRN #2 auto.injct 03/23/17 06/02/17 Alprazolam [Xanax] 0.5 mg PO DAILY PRN 05/06/17 06/02/17 Cetirizine [ZyrTEC] 10 mg PO DAILY #3 tablet 05/06/17 06/02/17 Epinephrine [Epipen 2-Kolby] 0.3 mg IJ ONCE PRN #2 unit 05/06/17 06/02/17 - Allergies Allergies/Adverse Reactions: Allergies Allergy/AdvReac Type Severity Reaction Status Date / Time aspirin Allergy Severe Anaphylaxis Verified 03/23/17 10:50 gelatin Allergy Severe Respiratory Verified 03/23/17 10:50 hydromorphone HCl * Allergy Severe Hives Verified 03/23/17 10:50 [From Dilaudid] morphine Allergy Severe Hives Verified 03/23/17 10:50 nitrofurantoin Allergy Severe Respiratory Verified 03/23/17 10:50 macrocrystalline * [From Macrobid] amoxicillin Allergy Anaphylaxis Verified 03/23/17 10:50 Beef Containing Products Allergy Anaphylaxis Verified 03/23/17 10:50 cinnamon Allergy Unknown Verified 03/23/17 10:50 famotidine [From Pepcid] Allergy Anaphylaxis Verified 03/23/17 10:50 fentanyl Allergy Unknown Verified 03/23/17 10:50 fluconazole Allergy Hives Verified 03/23/17 10:50 meperidine HCl * Allergy Anaphylaxis Verified 03/23/17 10:50 [From Demerol] Penicillins Allergy Anaphylaxis Verified 03/23/17 10:50 prednisone Allergy Anaphylaxis Verified 05/06/17 22:08 tamsulosin HCl * Allergy Unknown Verified 03/23/17 10:50 [From Flomax] tramadol Allergy Hives Verified 03/23/17 10:50 wheat Allergy Hives Verified 03/23/17 10:50 hydrocodone [Hydrocodone] AdvReac Severe Emesis Verified 03/23/17 10:50 butorphanol AdvReac Intermediate Anxiety Verified 03/23/17 10:50 adhesive AdvReac Rash Verified 03/23/17 10:50 fexofenadine AdvReac Edema Verified 03/23/17 10:50 NSAIDS (Non-Steroidal AdvReac Cramps Verified 03/23/17 10:50 Anti-Inflamma paprika AdvReac Anaphylaxis Verified 05/06/17 19:50 - Social History Does the pt smoke?: No Smoking Status: Never smoker Does the pt drink ETOH?: No Does the pt have substance abuse?: No - Immunizations Immunizations are current?: Yes - POLST Patient has POLST: No PD ED PE NORMAL - Vitals Vital signs reviewed: Yes - General General: Alert and oriented X 3, No acute distress, Well developed/nourished - HEENT HEENT: PERRL, Moist mucous membranes - Neck Neck: Supple, no meningeal sign - Cardiac Cardiac: RRR, Strong equal pulses - Respiratory Respiratory: No respiratory distress, Clear bilaterally - Abdomen Abdomen: Soft, Non tender, Non distended - Female Female : Pt declined - Back Back: No spinal TTP - Derm Derm: Warm and dry - Neuro Neuro: Alert and oriented X 3 - Psych Psych: Normal mood, Normal affect Results - Vitals Vitals: Vital Signs - 24 hr 06/02/17 06/02/17 16:34 19:06 Temperature 36.2 C L 36.9 C Heart Rate 88 71 Respiratory 24 21 Rate Blood Pressure 93/67 112/65 O2 Saturation 100 98 Oxygen O2 Source Room air - Labs Labs: Laboratory Tests 06/02/17 06/02/17 06/02/17 17:08 17:08 17:08 WBC 7.8 RBC 4.94 Hgb 14.0 Hct 42.5 MCV 86.0 MCH 28.3 MCHC 32.9 RDW 14.9 Plt Count 295 MPV 10.1 Neut # 4.4 Lymph # 2.1 [place] # 0.4 Eos # 0.7 Baso # 0.1 Absolute Nucleated RBC 0.01 Nucleated RBC % 0.1 PT 11.8 INR 1.0 APTT 26.6 Sodium 139 Potassium 3.7 Chloride 102 Carbon Dioxide 25 Anion Gap 12.0 BUN 13 Creatinine 0.6 Estimated GFR (MDRD) 117 Glucose 99 Calcium 9.7 Total Bilirubin 0.4 AST 18 ALT 16 Alkaline Phosphatase 42 Total Protein 8.1 Albumin 4.5 Globulin 3.6 Albumin/Globulin Ratio 1.3 Lipase 49 PD MEDICAL DECISION MAKING - ED course Complexity details: reviewed old records, reviewed results, re-evaluated patient , considered differential, d/w patient, d/w spa consultant ED course: Patient is a 31-year-old female who presents to the emergency department with menorrhagia. She is well-appearing, nontoxic. Afebrile. No vital sign abnormalities. Hemoglobin is normal. Discussed the case with gynecology on-call , Dr. Montero who does not recommend starting any medications at this time. Patient is comfortable with this plan. Patient declines any pain medication here or for home. Patient counseled regarding signs and symptoms for which I believe and urgent re-evaluation would be necessary. Patient with good understanding of and agreement to plan and is comfortable going home at this time This document was made in part using voice recognition software. While efforts are made to proofread this document, sound alike and grammatical errors may occur. Departure - Departure Disposition: 01 Home, Self Care Clinical Impression: Menorrhagia Qualifiers: Menorrahagia type: premenopausal Qualified Code(s): N92.4 - Excessive bleeding in the premenopausal period Condition: Good Instructions: ED Bleeding Menstrual Heavy Follow-Up: Nadia Caballero PA-C [Primary Care Provider] - Within 3 Days Comments: I talked with Dr. Kylah cohen and she does not recommend starting any medications tonight, but does want you to follow up in her clinic or with your power manager for further evaluation. Return if you worsen. Discharge Date/Time: 06/02/17 19:15
[2017-06-02 19:07] VITALS: BP 112/65
== END 2017-06-02 19:15 | disposition home or self-care (01) ==
LOC: ED 16:20
DX: N92.4 Excessive bleeding in the premenopausal period (principal); Z87.11 Personal history of peptic ulcer disease; Z87.42 Personal history of other diseases of the female genital tract
CPT/HCPCS: 36415; 80053; 83690; 85025; 85610; 85730; 99283; 99284

== ENCOUNTER 2017-06-24 11:39 | Outpatient (CLI) | payer MEDICAID | END 2017-06-24 11:40 | disposition home or self-care (01) | LOC: LAB.R 11:39 | PROVIDERS: ATTEND Obstetrics & Gynecology | DX: N76.0 Acute vaginitis (principal); Z11.3 Encounter for screening for infections with a predominantly sexual mode of transmission | CPT/HCPCS: 87480; 87491; 87510; 87591; 87660 ==

== ENCOUNTER 2017-07-04 17:59 | Emergency (ER) | payer OTHER, MEDICAID ==
[2017-07-04 18:38] LABS: BILIRUBIN,URINE NEGATIVE (NEGATIVE); CLARITY,URINE HAZY (CLEAR); GLUCOSE, URINE (UA) NEGATIVE (NEGATIVE); KETONES,URINE (UA) NEGATIVE (NEGATIVE); LEUKOCYTE ESTERASE, URINE NEGATIVE (NEGATIVE); NITRITE,URINE NEGATIVE (NEGATIVE); OCCULT BLOOD,URINE SMALL (NEGATIVE); PROTEIN,URINE NEGATIVE (NEGATIVE); UROBILINOGEN,URINE 0.2 (NORMAL) E.U./dL (NORMAL)
[2017-07-04 18:40] LABS: HCG UR QUAL NEGATIVE
[2017-07-04 18:49] LABS: BACTERIA,URINE Moderate /HPF (None Seen); MUCUS,URINE Moderate Strands; SQUAMOUS EPITHELIAL CELL,UR MOD Squamous (<= Few)
--- NOTE | 2017-07-04 19:05 | ED Physician Documentation ---
PD HPI ABD PAIN - Stated complaint Stated Complaint: BACK/ABD PX - Chief complaint Chief Complaint: Abd Pain - History obtained from History obtained from: Patient - History of Present Illness Timing - onset: How many months ago (several) Timing - duration: Months (several) Timing - details: Gradual onset Pain level now: 8 Quality: Aching, Pain Location: RLQ Radiation: Right flank Improved by: Meds (Tramadol) Worsened by: Moving, Palpation Associated symptoms: No: Fever, Nausea, Vomiting, Hematemesis, Diarrhea, Constipation, Melena, Hematochezia, Dysuria, Hematuria, Chest pain, Dizzy, Vaginal bleeding, Vaginal dc Similar symptoms before: No diagnosis (Has had ultrasounds, CAT scans, lab work for similar symptoms) Recently seen: Clinic (Recently seen in clinic for same with no diagnosis) - Additional information Additional information: In addition to her abdominal pain, she also states that 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 Now has pain in the middle of her back, more on the right side. She denies any numbness or tingling. 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 HEENT: Chronic sinusitis Psych: None Musculoskeletal: None Derm: None - Past Surgical History Past Surgical History: Yes General: Appendectomy Ortho: Other /STRUCTURAL STEEL FITTER: section, Tubal ligation, Other HEENT: Tonsil/Adenoidectomy - Present Medications Home Medications: Ambulatory Orders Medication Instructions Recorded Confirmed Gabapentin [Neurontin] 300 mg PO TID #90 capsule 11/14/16 07/04/17 Sucralfate 1 gm PO AC #30 tablet 11/14/16 07/04/17 diphenhydrAMINE [Benadryl] 25 mg PO Q4HR PRN #30 capsule 11/14/16 07/04/17 traMADol [Ultram] 50 mg PO Q4HR PRN #120 tablet 11/14/16 07/04/17 Albuterol Sulfate [Proventil Hfa 1 - 2 puffs INH Q4H PRN #1 inhaler 01/29/1706/09 Inhaler] Ondansetron Odt [Zofran] 4 mg TL Q6H PRN #14 tablet 01/29/17 07/04/17 Epinephrine [Epipen 2-Kolby] 0.3 mg IJ ONCE PRN #2 auto.injct 03/23/17 07/04/17 Alprazolam [Xanax] 0.5 mg PO DAILY PRN 05/06/17 07/04/17 Cetirizine [ZyrTEC] 10 mg PO DAILY #3 tablet 05/06/17 07/04/17 Epinephrine [Epipen 2-Kolby] 0.3 mg IJ ONCE PRN #2 unit 05/06/17 07/04/17 - Allergies Allergies/Adverse Reactions: Allergies Allergy/AdvReac Type Severity Reaction Status Date / Time aspirin Allergy Severe Anaphylaxis Verified 07/04/17 18:09 gelatin Allergy Severe Respiratory Verified 07/04/17 18:09 hydromorphone HCl * Allergy Severe Hives Verified 07/04/17 18:09 [From Dilaudid] morphine Allergy Severe Hives Verified 07/04/17 18:09 nitrofurantoin Allergy Severe Respiratory Verified 07/04/17 18:09 macrocrystalline * [From Macrobid] amoxicillin Allergy Anaphylaxis Verified 07/04/17 18:09 Beef Containing Products Allergy Anaphylaxis Verified 07/04/17 18:09 cinnamon Allergy Unknown Verified 07/04/17 18:09 famotidine [From Pepcid] Allergy Anaphylaxis Verified 07/04/17 18:09 fentanyl Allergy Unknown Verified 07/04/17 18:09 fluconazole Allergy Hives Verified 07/04/17 18:09 meperidine HCl * Allergy Anaphylaxis Verified 07/04/17 18:09 [From Demerol] Penicillins Allergy Anaphylaxis Verified 07/04/17 18:09 prednisone Allergy Anaphylaxis Verified 07/04/17 18:09 tamsulosin HCl * Allergy Unknown Verified 07/04/17 18:09 [From Flomax] wheat Allergy Hives Verified 07/04/17 18:09 hydrocodone [Hydrocodone] AdvReac Severe Emesis Verified 07/04/17 18:09 butorphanol AdvReac Intermediate Anxiety Verified 07/04/17 18:09 adhesive AdvReac Rash Verified 07/04/17 18:09 fexofenadine AdvReac Edema Verified 07/04/17 18:09 NSAIDS (Non-Steroidal AdvReac Cramps Verified 07/04/17 18:09 Anti-Inflamma paprika AdvReac Anaphylaxis Verified 07/04/17 18:09 - Social History Does the pt smoke?: No Smoking Status: Never smoker Does the pt drink ETOH?: No Does the pt have substance abuse?: No - Immunizations Immunizations are current?: Yes - POLST Patient has POLST: No PD ED PE NORMAL - Vitals Vital signs reviewed: Yes - General General: Alert and oriented X 3, No acute distress - HEENT HEENT: Moist mucous membranes - Neck Neck: Supple, no meningeal sign - Cardiac Cardiac: RRR - Respiratory Respiratory: No respiratory distress, Clear bilaterally - Abdomen Abdomen: Soft, Non distended, Other (Tender to palpation right lower quadrant. No peritoneal signs) - Female Female : Pt declined - Rectal Rectal: Pt declined - Back Back: No CVA TTP, No spinal TTP, Other (Tender to palpation paraspinal worse at approximately T12-L1. There is spasm present. No midline tenderness, step-off or deformity) - Derm Derm: Warm and dry, No rash - Extremities Extremities: Normal ROM s pain, No edema, Other (normal bilateral lower extremity patellar and ankle jerk reflexes. 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, No motor deficit, No sensory deficit, Normal speech - Psych Psych: Normal mood, Normal affect Results - Vitals Vitals: Vital Signs - 24 hr 07/04/17 07/04/17 07/04/17 18:04 21:18 21:26 Temperature 36.8 C Heart Rate 76 112 H 124 H Respiratory 18 24 20 Rate Blood Pressure 106/67 125/93 H 123/89 H O2 Saturation 100 100 100 07/04/17 07/04/17 07/04/17 21:35 21:39 22:03 Temperature Heart Rate 91 102 H 107 H Respiratory 30 H 19 14 Rate Blood Pressure 94/68 105/66 O2 Saturation 100 100 99 07/04/17 07/04/17 07/04/17 22:38 23:15 23:36 Temperature 36.3 C L Heart Rate 93 87 78 Respiratory 21 18 18 Rate Blood Pressure 90/64 95/67 105/65 O2 Saturation 99 100 100 Oxygen O2 Source Room air Oxygen Flow Rate 3 - Labs Labs: Laboratory Tests 07/04/17 07/04/17 07/04/17 18:32 19:15 19:15 WBC 8.5 RBC 4.86 Hgb 14.0 Hct 42.4 MCV 87.3 MCH 28.9 MCHC 33.1 RDW 14.2 Plt Count 304 MPV 10.1 Neut # 4.7 Lymph # 2.8 [place] # 0.4 Eos # 0.5 Baso # 0.1 Absolute Nucleated RBC 0.00 Nucleated RBC % 0.0 Sodium 138 Potassium 3.2 L Chloride 103 Carbon Dioxide 21 Anion Gap 14.0 H BUN 14 Creatinine 0.6 Estimated GFR (MDRD) 117 Glucose 99 Calcium 9.1 Total Bilirubin 0.3 AST 21 ALT 17 Alkaline Phosphatase 45 Total Protein 8.1 Albumin 4.8 Globulin 3.3 Albumin/Globulin Ratio 1.5 Lipase 38 Urine Color YELLOW Urine Clarity HAZY Urine pH 6.0 Ur Specific [place] 1.025 Urine Protein NEGATIVE Urine Glucose (UA) NEGATIVE Urine Ketones NEGATIVE Urine Occult Blood SMALL H Urine Nitrite NEGATIVE Urine Bilirubin NEGATIVE Urine Urobilinogen 0.2 (NORMAL) Ur Leukocyte Esterase NEGATIVE Urine RBC 6-10 H Urine WBC 0-3 Ur Squamous Epith Cells MOD Squamous H Urine Bacteria Moderate H Urine Mucus Moderate Strands Ur Microscopic Review INDICATED Urine Culture Comments NOT INDICATED Urine HCG, Qual NEGATIVE - Rads (name of study) CT abdomen pelvis Radiology: Prelim report reviewed, EMP read contemporaneously, See rad report ( No gross inflammatory obstructive process seen in the abdomen or pelvis. Small nonobstructing left renal stones) PD MEDICAL DECISION MAKING - ED course Complexity details: reviewed old records, reviewed results, re-evaluated patient , considered differential, d/w patient, d/w family ED course: Patient is a 31-year-old female who presents to the emergency department with 2 issues, the first is ongoing abdominal pain. Unclear etiology. No acute findings on CT, laboratory testing. Possible constipation? This should improve with the oral contrast she was given. The second is back pain after work-related injury in which the patient was falling and she went to grab the patient to prevent her from falling and twisted her back. Appears to be a muscle spasm. Pain well controlled here. No evidence of fracture. No neurological deficits. No evidence of cauda equina. We did attempt to utilize Ofirm[facility] for her pain, however she broke out in hives on the arm that the IV was then, this is followed by stridor and wheezing. Resolved with epinephrine and Benadryl. Patient is well-appearing, nontoxic. She feels very well at the end of her visits and will follow up with her doctor. Has tramadol at home for pain. Patient counseled regarding signs and symptoms for which I believe and urgent re-evaluation would be necessary. Patient with good understanding of and agreement to plan and is comfortable going home at this time This document was made in part using voice recognition software. While efforts are made to proofread this document, sound alike and grammatical errors may occur. Departure - Departure Disposition: 01 Home, Self Care Clinical Impression: Abdominal pain Back strain Qualifiers: Encounter type: initial encounter Qualified Code(s): S39.012A - Strain of muscle, fascia and tendon of lower back, initial encounter Constipation Qualifiers: Constipation type: unspecified constipation type Qualified Code(s): K59.00 - Constipation, unspecified Condition: Good Instructions: ED Abdominal Pain Unkn Cause, ED Constipation Follow-Up: Nadia Caballero PA-C [Primary Care Provider] - Within 1 week Comments: Return if you worsen. Follow up with your doctor for further care. Discharge Date/Time: 07/04/17 23:40
[2017-07-04 19:26] LABS: BASOPHILS # (AUTO) 0.1 10^3/uL (0.0-0.1); BASOPHILS % (AUTO) 1.1 %; EOSINOPHILS # (AUTO) 0.5 10^3/uL (0.0-0.7); EOSINOPHILS % (AUTO) 5.9 %; LYMPHOCYTES # (AUTO) 2.8 10^3/uL (1.5-3.5); LYMPHOCYTES % (AUTO) 32.7 %; MEAN CORPUSCULAR HEMOGLOBIN 28.9 pg (27.0-31.0); MEAN CORPUSCULAR HGB CONC 33.1 g/dL (32.0-36.0); MEAN CORPUSCULAR VOLUME 87.3 fL (81.0-99.0); MEAN PLATELET VOLUME 10.1 fL (7.9-10.8); MONOCYTES # (AUTO) 0.4 10^3/uL (0.0-1.0); MONOCYTES % (AUTO) 5.2 %; NEUTROPHILS # (AUTO) 4.7 10^3/uL (1.5-6.6); NEUTROPHILS % (AUTO) 55.1 %; PLT - PLATELET COUNT 304 10^3/uL (130-450); RED BLOOD COUNT 4.86 10^6/uL (4.20-5.40); RED CELL DISTRIBUTION WIDTH 14.2 % (12.0-15.0); WHITE BLOOD COUNT 8.5 x10^3/uL (4.8-10.8)
[2017-07-04] MEDS ORDERED: IOPAMIDOL-300 50 ML VIAL ONE (19:28)
[2017-07-04 19:33] LABS: ALBUMIN 4.8 g/dL (3.2-5.5); ALBUMIN/GLOBULIN RATIO 1.5 (1.0-2.2); BILIRUBIN,TOTAL 0.3 mg/dL (0.2-1.0); CALCIUM 9.1 mg/dL (8.5-10.3); CREATININE 0.6 mg/dL (0.4-1.0); TOTAL PROTEIN 8.1 g/dL (6.7-8.2)
[2017-07-04] MEDS ORDERED: ONDANSETRON ODT 4 MG TABLET TL STA (19:47)
[2017-07-04] MEDS ORDERED: diphenhydrAMINE INJ 50 MG/ML VIAL IVP STA (20:49)
[2017-07-04] MEDS ORDERED: ACETAMINOPHEN 1,000 MG/100 ML 100 ML IV STA (20:49)
[2017-07-04] MEDS ORDERED: ONDANSETRON 4 MG/2 ML VIAL IVP STA (20:50)
[2017-07-04] MEDS ORDERED: SODIUM CHLORIDE 0.9% 1,000 ML IV ONE (20:50)
[2017-07-04] MEDS ORDERED: EPINEPHrine 1 MG/ML AMP IM STA (21:21)
[2017-07-04] MEDS ORDERED: EPINEPHrine 1 MG/ML AMP ONE (21:29)
[2017-07-04] MEDS ORDERED: PROMETHAZINE 25 MG/1 ML VIAL IM STA (21:34)
[2017-07-04] MEDS ORDERED: PROMETHAZINE 25 MG/1 ML VIAL ONE (21:35)
[2017-07-04] MEDS ORDERED: diphenhydrAMINE INJ 50 MG/ML VIAL IM STA (21:51)
--- NOTE | 2017-07-04 23:13 | CT Preliminary Report ---
Exam: CT ABDOMEN/PELVIS W/O IMPRESSION: 1. No gross acute inflammatory or obstructive process seen in the abdomen or pelvis on this non-IV co ntrast study. 2. Small nonobstructing left renal stones. Of note, numerous previous CTs in this young patient. Please flag chart for placement into the AARON s ystem. This was called to the nurse, Charisma, at the time of dictation. [facility] SITE ID: [id number]
--- NOTE | 2017-07-04 23:16 | CT Report ---
EXAM: CT ABDOMEN AND PELVIS EXAM DATE: 07/04/2017 10:33 PM. CLINICAL HISTORY: Lower abdominal pain. COMPARISONS: 11/11/2016. TECHNIQUE: Routine helical CT imaging was performed through the abdomen and pelvis. IV contrast: No d ue to reported allergy. Enteric contrast: Yes. Reconstructions: Coronal and sagittal. In accordance with CT protocol optimization, one or more of the following dose reduction techniques w ere utilized for this exam: automated exposure control, adjustment of mA and/or KV based on patient s ize, or use of iterative reconstructive technique. FINDINGS: Lung Bases: Unremarkable. Noncontrast abdominal organs: Grossly unremarkable noncontrast appearance to the liver, gallbladder, pancreas, adrenals, kidneys, and spleen with exception of a couple of stable 2 mm nonobstructing left renal stones. Peritoneal Cavity/Bowel: Normal. No free fluid, free air or adenopathy. No masses or acute inflammato ry process. The appendix is not seen, but there is no evidence of appendicitis. Pelvic Organs: Questionable right-sided uterine fibroid with bicornuate uterus better seen on prior c ontrast-enhanced study. Post bilateral tubal ligation. No suspicious adnexal masses seen. Urinary devaughn dder appears unremarkable. Vasculature: No aneurysms or other significant abnormality. Bones: No significant abnormality. Other: None. IMPRESSION: 1. No gross acute inflammatory or obstructive process seen in the abdomen or pelvis on this non-IV co ntrast study. 2. Small nonobstructing left renal stones. Of note, numerous previous CTs in this young patient. Please flag chart for placement into the [employer]. This was called to the nurse, Charisma, at the time of dictation. [facility] Referring Provider Line: [phone] SITE ID: [id number]
[2017-07-04] MEDS ORDERED: traMADol 50 MG TABLET PO STA (23:21)
[2017-07-04] MEDS ORDERED: IOPAMIDOL-300 50 ML VIAL PO ONE (23:26)
[2017-07-04 23:37] VITALS: BP 105/65
== END 2017-07-04 23:40 | disposition home or self-care (01) ==
LOC: ED 17:59
DX: S39.012A Strain of muscle, fascia and tendon of lower back, initial encounter (principal); X50.9XXA Other and unspecified overexertion or strenuous movements or postures, initial encounter; Y93.F2 Activity, caregiving, lifting; Y99.0 Civilian activity done for income or pay; R10.31 Right lower quadrant pain; K59.00 Constipation, unspecified; L50.0 Allergic urticaria; R06.1 Stridor; R06.2 Wheezing; T39.1X5A Adverse effect of 4-Aminophenol derivatives, initial encounter
CPT/HCPCS: 36415; 74176; 80053; 81001; 81025; 83690; 85025; 96361; 96372; 96374; 96375; 99284; 99285; A9270; J0131; Q0162; Q9967; 81003; 87086

== ENCOUNTER 2017-08-10 14:39 | Emergency (ER) | payer MEDICAID ==
[2017-08-10] MEDS ORDERED: PROMETHAZINE 25 MG/1 ML VIAL IM STA (15:40)
[2017-08-10] MEDS ORDERED: traMADol 50 MG TABLET PO STA (15:40)
[2017-08-10 15:41] LABS: BILIRUBIN,URINE NEGATIVE (NEGATIVE); GLUCOSE, URINE (UA) NEGATIVE (NEGATIVE); KETONES,URINE (UA) NEGATIVE (NEGATIVE); LEUKOCYTE ESTERASE, URINE NEGATIVE (NEGATIVE); NITRITE,URINE NEGATIVE (NEGATIVE); OCCULT BLOOD,URINE NEGATIVE (NEGATIVE); PH,URINE 7.5 PH (5.0-7.5); PROTEIN,URINE NEGATIVE (NEGATIVE); UROBILINOGEN,URINE 0.2 (NORMAL) E.U./dL (NORMAL)
[2017-08-10 15:42] LABS: CLARITY,URINE CLEAR (CLEAR)
--- NOTE | 2017-08-10 15:48 | ED Physician Documentation ---
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 She normally takes tramadol, but is unable to get this filled at the pharmacy secondary to insurance issues. She is also had nausea and vomiting which are chronic issues for her as well. Has had multiple negative workups in the past. No fevers. No loss of bowel or bladder control. No numbness or tingling. 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: 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 : None HEENT: Chronic sinusitis Psych: None Musculoskeletal: None Derm: None - Past Surgical History Past Surgical History: Yes General: Appendectomy Ortho: Other /PRODUCTION OPERATOR: section, Tubal ligation, Other HEENT: Tonsil/Adenoidectomy - Present Medications Home Medications: Ambulatory Orders Medication Instructions Recorded Confirmed Gabapentin [Neurontin] 300 mg PO TID #90 capsule 11/14/16 07/04/17 Sucralfate 1 gm PO AC #30 tablet 11/14/16 07/04/17 Oxycodone HCl 5 - 10 mg PO Q6H PRN #14 capsule 08/10/17 Promethazine [Phenergan] 25 - 50 mg PO Q6H PRN #10 tab 08/10/17 diazePAM [Valium] 5 mg PO TID PRN #15 tablet 08/10/17 - Allergies Allergies/Adverse Reactions: Allergies Allergy/AdvReac Type Severity Reaction Status Date / Time aspirin Allergy Severe Anaphylaxis Verified 08/10/17 14:50 gelatin Allergy Severe Respiratory Verified 08/10/17 14:50 hydromorphone HCl * Allergy Severe Hives Verified 08/10/17 14:50 [From Dilaudid] morphine Allergy Severe Hives Verified 08/10/17 14:50 nitrofurantoin Allergy Severe Respiratory Verified 08/10/17 14:50 macrocrystalline * [From Macrobid] acetaminophen [From Ofirmev] Allergy Hives Verified 08/10/17 14:50 amoxicillin Allergy Anaphylaxis Verified 08/10/17 14:50 Beef Containing Products Allergy Anaphylaxis Verified 08/10/17 14:50 cinnamon Allergy Unknown Verified 08/10/17 14:50 famotidine [From Pepcid] Allergy Anaphylaxis Verified 08/10/17 14:50 fentanyl Allergy Unknown Verified 08/10/17 14:50 fluconazole Allergy Hives Verified 08/10/17 14:50 meperidine HCl * Allergy Anaphylaxis Verified 08/10/17 14:50 [From Demerol] Penicillins Allergy Anaphylaxis Verified 08/10/17 14:50 prednisone Allergy Anaphylaxis Verified 08/10/17 14:50 tamsulosin HCl * Allergy Unknown Verified 08/10/17 14:50 [From Flomax] wheat Allergy Hives Verified 08/10/17 14:50 hydrocodone [Hydrocodone] AdvReac Severe Emesis Verified 08/10/17 14:50 butorphanol AdvReac Intermediate Anxiety Verified 08/10/17 14:50 adhesive AdvReac Rash Verified 08/10/17 14:50 fexofenadine AdvReac Edema Verified 08/10/17 14:50 NSAIDS (Non-Steroidal AdvReac Cramps Verified 08/10/17 14:50 Anti-Inflamma paprika AdvReac Anaphylaxis Verified 08/10/17 14:50 - Social History Does the pt smoke?: No Smoking Status: Never smoker Does the pt drink ETOH?: No Does the pt have substance abuse?: No - Immunizations Immunizations are current?: Yes - POLST Patient has POLST: No PD ED PE NORMAL - Vitals Vital signs reviewed: Yes - General General: Alert and oriented X 3, Well developed/nourished, Other (Appears uncomfortable) - HEENT HEENT: PERRL, Moist mucous membranes - Neck Neck: Supple, no meningeal sign - Cardiac Cardiac: RRR, Strong equal pulses - Respiratory Respiratory: No respiratory distress, Clear bilaterally - Abdomen Abdomen: Soft, Non tender, Non distended - Back Back: No spinal TTP, Other (Paraspinal spasm, mid lumbar to mid thoracic. No midline tenderness to palpation or percussion) - Derm Derm: Warm and dry - Extremities Extremities: No tenderness to palpate, No edema, No calf tenderness / cord, Other (normal bilateral lower extremity patellar and ankle jerk reflexes. Normal great toe extension bilaterally) - Neuro Neuro: Alert and oriented X 3, it security architect 2-12 intact, No motor deficit, No sensory deficit, Normal speech - Psych Psych: Normal mood, Normal affect Results - Vitals Vitals: Vital Signs - 24 hr 08/10/17 08/10/17 14:48 16:51 Temperature 36.0 C L Heart Rate 100 98 Respiratory 16 20 Rate Blood Pressure 112/63 104/74 O2 Saturation 100 100 Oxygen O2 Source Room air - Labs Labs: Laboratory Tests 08/10/17 14:50 Urine Color YELLOW Urine Clarity CLEAR Urine pH 7.5 Ur Specific [place] 1.015 Urine Protein NEGATIVE Urine Glucose (UA) NEGATIVE Urine Ketones NEGATIVE Urine Occult Blood NEGATIVE Urine Nitrite NEGATIVE Urine Bilirubin NEGATIVE Urine Urobilinogen 0.2 (NORMAL) Ur Leukocyte Esterase NEGATIVE Ur Microscopic Review NOT INDICATED Urine Culture Comments NOT INDICATED PD MEDICAL DECISION MAKING - ED course Complexity details: reviewed old records, reviewed results, re-evaluated patient , considered differential, d/w patient ED course: Patient is a 31-year-old female with acute on chronic back pain. Has been unable to fill her pain medication because of insurance issues. Given tramadol here and this did help but still having pain. She was also given oxycodone and a small dose of Valium which seemed to help her symptoms. Will prescribe a small amount of medication for home. We will also prescribe a small amount of Phenergan as this does help with her nausea and vomiting. She will follow-up with her doctor for further evaluation and care. Patient counseled regarding signs and symptoms for which I believe and urgent re-evaluation would be necessary. Patient with good understanding of and agreement to plan and is comfortable going home at this time This document was made in part using voice recognition software. While efforts are made to proofread this document, sound alike and grammatical errors may occur. Departure - Departure Disposition: 01 Home, Self Care Clinical Impression: Back spasm Back pain Qualifiers: Back pain location: back pain in unspecified location Chronicity: acute Back pain laterality: bilateral Qualified Code(s): M54.9 - Dorsalgia, unspecified Condition: Good Instructions: ED Neck Back Pain General Follow-Up: Nadia Caballero PA-C [Primary Care Provider] - Within 1 week Prescriptions: diazePAM [Valium] 5 mg PO TID PRN #15 tablet PRN Reason: Spasms Oxycodone HCl 5 - 10 mg PO Q6H PRN #14 capsule PRN Reason: back pain Promethazine [Phenergan] 25 - 50 mg PO Q6H PRN #10 tab PRN Reason: Nausea / Vomiting Comments: Return if you worsen. Follow-up with your doctor for further care. you may benefit from physical therapy for your back as well. You may try wearing a back brace at work to see if this helps. Do not drink alcohol or drive while on narcotic pain medicine or valium Note that many narcotic pain relievers also contain tylenol/acetaminophen. Please ensure that your total dose of acetaminophen from all sources does not exceed 3 grams (3000mg) per day. You may constipated on this medication, take a stool softener such as "Colace" twice a day while you are on it. Also recommend a [id number]-pqqggtt laxative such as senna or MiraLAX any day that you do not have a bowel movement. If you received narcotic pain medication in the emergency department, do not drive or operate machinery for the next 24 hours.
[2017-08-10] MEDS ORDERED: oxyCODONE 5 MG TABLET PO STA (16:30)
[2017-08-10] MEDS ORDERED: diazePAM 5 MG TABLET PO STA (16:30)
[2017-08-10 16:52] VITALS: BP 104/74
== END 2017-08-10 17:03 | disposition home or self-care (01) ==
LOC: ED 14:39
DX: M62.830 Muscle spasm of back (principal); M54.5 Low back pain; G89.29 Other chronic pain; Z87.11 Personal history of peptic ulcer disease
CPT/HCPCS: 81003; 96372; 99283; A9270; 81001; 87086

== ENCOUNTER 2017-08-16 15:11 | Outpatient (CLI) | payer MEDICAID ==
--- NOTE | 2017-08-16 16:44 | Ultrasound Report ---
EXAM: PELVIC ULTRASOUND EXAM DATE: 08/16/2017 04:00 PM. CLINICAL HISTORY: Pelvic pain. Excessive and frequent menstruation. COMPARISON: None. TECHNIQUE: Realtime transabdominal pelvic scan performed to identify the uterus and adnexa and as an overview of other pelvic structures, followed by transvaginal scan to provide greater detail of the u terus and adnexa, with static image documentation. FINDINGS: Uterus: 9.3 x 4.5 x 7.2 cm, volume 157 cc. Anteverted position, bicornuate. Normal overall size and e chotexture. Masses: Echogenic right intramural fibroid, 2.7 x 1.5 x 1.8 cm. Endometrium: 13 mm right, 14 mm left, with a complex fluid collection, 2.0 x 0.8 x 0.8 cm. Cervix: Unremarkable. Right Ovary: 3.2 x 1.7 x 2.0 cm, volume 5.7 cc. Normal echotexture and blood flow. Left Ovary: 5.3 x 4.4 x 4.0 cm, volume 48 cc. Normal echotexture and blood flow. Simple cyst, 3.7 x 3 .3 x 3.4 cm. Free Fluid: None. Other: None. IMPRESSION: 1. 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 2. Anterior echogenic intramural fibroid. 3. Left ovarian cyst. [facility] Referring Provider Line: [phone] SITE ID: [id number]
== END 2017-08-16 15:12 | disposition home or self-care (01) ==
LOC: DI 15:11
PROVIDERS: ATTEND Obstetrics & Gynecology
DX: Q51.3 Bicornate uterus (principal); D25.1 Intramural leiomyoma of uterus; N83.202 Unspecified ovarian cyst, left side
CPT/HCPCS: 76830; 76856

== ENCOUNTER 2017-10-10 15:59 | Emergency (ER) | payer MEDICAID ==
[2017-10-10 16:52] LABS: BILIRUBIN,URINE NEGATIVE (NEGATIVE); GLUCOSE, URINE (UA) NEGATIVE (NEGATIVE); KETONES,URINE (UA) NEGATIVE (NEGATIVE); LEUKOCYTE ESTERASE, URINE NEGATIVE (NEGATIVE); NITRITE,URINE NEGATIVE (NEGATIVE); OCCULT BLOOD,URINE NEGATIVE (NEGATIVE); PH,URINE 5.5 PH (5.0-7.5); PROTEIN,URINE NEGATIVE (NEGATIVE); UROBILINOGEN,URINE 0.2 (NORMAL) E.U./dL (NORMAL)
[2017-10-10 17:06] LABS: CLARITY,URINE CLEAR (CLEAR)
--- NOTE | 2017-10-10 17:27 | ED Physician Documentation ---
History of Present Illness - Stated complaint Stated Complaint: ABDOMINAL PAIN/FEMALE - Chief complaint Chief Complaint: Abd Pain - History obtained from History obtained from: Patient - History of Present Illness Timing: How many days ago (3) Pain level max: 9 Pain level now: 9 Improved by: nothing Worsened by: palpation, movement. - Additonal information Additional information: Patient is a 31 year old female s/p hysterectomy 1 week ago. States developed R sided abd pain 3 days ago, worsening since that time. States dysuria present as well. Taking PO dilaudid at home, but not helping. Review of Systems Ten Systems: 10 systems reviewed and negative Constitutional: reports: Fever (subjective), Chills Ears: denies: Ear pain Nose: denies: Rhinorrhea / runny nose, Congestion Throat: denies: Sore throat Cardiac: denies: Chest pain / pressure Respiratory: denies: Cough GI: denies: Hematemesis, Bloody / black stool : reports: Dysuria, Frequency, Hesitancy. 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 OFF: 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 : None HEENT: Chronic sinusitis Psych: None Musculoskeletal: None Derm: None - Past Surgical History Past Surgical History: Yes General: Appendectomy Ortho: Other /LAYER OFF: section, Tubal ligation, Hysterectomy, Other HEENT: Tonsil/Adenoidectomy - Present Medications Home Medications: Ambulatory Orders Medication Instructions Recorded Confirmed Gabapentin [Neurontin] 300 mg PO TID #90 capsule 11/14/16 07/04/17 Sucralfate 1 gm PO AC #30 tablet 11/14/16 07/04/17 Oxycodone HCl 5 - 10 mg PO Q6H PRN #14 capsule 08/10/17 Promethazine [Phenergan] 25 - 50 mg PO Q6H PRN #10 tab 08/10/17 diazePAM [Valium] 5 mg PO TID PRN #15 tablet 08/10/17 - Allergies Allergies/Adverse Reactions: Allergies Allergy/AdvReac Type Severity Reaction Status Date / Time aspirin Allergy Severe Anaphylaxis Verified 08/10/17 14:50 gelatin Allergy Severe Respiratory Verified 08/10/17 14:50 hydromorphone HCl * Allergy Severe Hives Verified 08/10/17 14:50 [From Dilaudid] morphine Allergy Severe Hives Verified 08/10/17 14:50 nitrofurantoin Allergy Severe Respiratory Verified 08/10/17 14:50 macrocrystalline * [From Macrobid] acetaminophen [From Ofirmev] Allergy Hives Verified 08/10/17 14:50 amoxicillin Allergy Anaphylaxis Verified 08/10/17 14:50 Beef Containing Products Allergy Anaphylaxis Verified 08/10/17 14:50 cinnamon Allergy Unknown Verified 08/10/17 14:50 famotidine [From Pepcid] Allergy Anaphylaxis Verified 08/10/17 14:50 fentanyl Allergy Unknown Verified 08/10/17 14:50 fluconazole Allergy Hives Verified 08/10/17 14:50 meperidine HCl * Allergy Anaphylaxis Verified 08/10/17 14:50 [From Demerol] Penicillins Allergy Anaphylaxis Verified 08/10/17 14:50 prednisone Allergy Anaphylaxis Verified 08/10/17 14:50 tamsulosin HCl * Allergy Unknown Verified 08/10/17 14:50 [From Flomax] wheat Allergy Hives Verified 08/10/17 14:50 hydrocodone [Hydrocodone] AdvReac Severe Emesis Verified 08/10/17 14:50 butorphanol AdvReac Intermediate Anxiety Verified 08/10/17 14:50 adhesive AdvReac Rash Verified 08/10/17 14:50 fexofenadine AdvReac Edema Verified 08/10/17 14:50 NSAIDS (Non-Steroidal AdvReac Cramps Verified 08/10/17 14:50 Anti-Inflamma paprika AdvReac Anaphylaxis Verified 08/10/17 14:50 - Social History Does the pt smoke?: No Smoking Status: Never smoker Does the pt drink ETOH?: No Does the pt have substance abuse?: No - Immunizations Immunizations are current?: Yes - POLST Patient has POLST: No PD ED PE NORMAL - Vitals Vital signs reviewed: Yes - General General: Alert and oriented X 3, No acute distress, Well developed/nourished - HEENT HEENT: PERRL, Moist mucous membranes - Neck Neck: Supple, no meningeal sign - Cardiac Cardiac: RRR, Strong equal pulses - Respiratory Respiratory: No respiratory distress, Clear bilaterally - Abdomen Abdomen: Other (diffuse TTP over the R side of the abd. + rebound and guarding.) - Back Back: No CVA TTP, No spinal TTP - Derm Derm: Warm and dry - Extremities Extremities: No edema - Neuro Neuro: Alert and oriented X 3 - Psych Psych: Normal mood, Normal affect Results - Vitals Vitals: Vital Signs - 24 hr 10/10/17 10/10/17 16:08 20:06 Temperature 37.1 C 37.2 C Heart Rate 109 H 98 Respiratory 20 16 Rate Blood Pressure 97/61 105/80 O2 Saturation 98 100 Oxygen O2 Source Room air - Labs Labs: Laboratory Tests 10/10/17 10/10/17 10/10/17 16:15 18:20 18:20 WBC 10.0 RBC 4.21 Hgb 12.1 Hct 36.3 L MCV 86.1 MCH 28.6 MCHC 33.3 RDW 13.6 Plt Count 324 MPV 9.3 Neut # 6.5 Lymph # 2.4 Granite # 0.4 Eos # 0.6 Baso # 0.1 Absolute Nucleated RBC 0.00 Nucleated RBC % 0.0 Sodium 135 Potassium 3.8 Chloride 106 Carbon Dioxide 21 Anion Gap 8.0 BUN 13 Creatinine 0.5 Estimated GFR (MDRD) 144 Glucose 105 H Calcium 8.4 L Total Bilirubin 0.2 AST 15 ALT 15 Alkaline Phosphatase 47 Total Protein 7.0 Albumin 3.8 Globulin 3.2 Albumin/Globulin Ratio 1.2 Lipase 22 Urine Color YELLOW Urine Clarity CLEAR Urine pH 5.5 Ur Specific [place] >=1.030 H Urine Protein NEGATIVE Urine Glucose (UA) NEGATIVE Urine Ketones NEGATIVE Urine Occult Blood NEGATIVE Urine Nitrite NEGATIVE Urine Bilirubin NEGATIVE Urine Urobilinogen 0.2 (NORMAL) Ur Leukocyte Esterase NEGATIVE Ur Microscopic Review NOT INDICATED Urine Culture Comments NOT INDICATED - Rads (name of study) CT abd/pelvis Radiology: Prelim report reviewed, EMP read contemporaneously, See rad report ( 3.9 x 3.4 x 4.5 cm rim-enhancing left adnexal fluid collection, new since June 2017. The finding could represent a postoperative abscess. A large corpus luteum is a possibility if the left ovary remains. 2. Small volume pelvic free fluid. Minimal pelvic pneumoperitoneum. 3. Scattered subcutaneous gas in the lower quadrant anterior abdominal wall, consistent with recent laparoscopy. No abdominal wall hematoma or fluid collection is identified. ) PD MEDICAL DECISION MAKING - ED course Complexity details: reviewed results, re-evaluated patient, considered differential, d/w patient, d/w senior professional services consultant ED course: Patient is a 31-year-old female who presents to the emergency department with increasing postoperative pain over the past 3 days. Not controlled with oral Dilaudid at home. Has had subjective fevers. CT scan reveals a 3.9 x 3.4 x 4.5 cm rim-enhancing left adnexal fluid collection. Unclear if this represents a postoperative abscess versus a large corpus luteum cyst. Discussed the case with Dr. Mitchell who is on-call for Dr. Perez, who performed the original surgery and case was discussed with him at 2030. Dr. Mitchell recommends transfer to [facility] in [place] for further evaluation and care. Recommends that I speak with the OB hospitalist. I discussed the case with Dr. Cadet, [facility] hospitalist at [facility] in [place] who graciously accepts the patient in transfer at [id number]. Antibiotics will be held at this time until she has been evaluated and [place]. Patient is well-appearing, nontoxic. Pain controlled with IV Dilaudid. This document was made in part using voice recognition software. While efforts are made to proofread this document, sound alike and grammatical errors may occur. Departure - Departure Disposition: 02 Transfer Acute Care Hosp Clinical Impression: Postoperative intra-abdominal abscess Qualifiers: Encounter type: initial encounter Qualified Code(s): T81.4XXA - Infection following a procedure, initial encounter Condition: Stable Discharge Date/Time: 10/10/17 21:53
[2017-10-10] MEDS ORDERED: SODIUM CHLORIDE 0.9% 1,000 ML IV ONE ×3 (17:28→17:29)
[2017-10-10] MEDS ORDERED: ONDANSETRON 4 MG/2 ML VIAL IVP STA (17:29)
[2017-10-10] MEDS ORDERED: diphenhydrAMINE INJ 50 MG/ML VIAL IVP STA ×2 (17:39→20:14)
[2017-10-10] MEDS ORDERED: HYDROmorphone 1 MG/ML CARPUJECT IVP STA ×3 (17:41→21:26)
[2017-10-10 18:27] LABS: BASOPHILS # (AUTO) 0.1 10^3/uL (0.0-0.1); BASOPHILS % (AUTO) 1.2 %; EOSINOPHILS # (AUTO) 0.6 10^3/uL (0.0-0.7); HGB - HEMOGLOBIN 12.1 g/dL (12.0-16.0); LYMPHOCYTES # (AUTO) 2.4 10^3/uL (1.5-3.5); LYMPHOCYTES % (AUTO) 23.8 %; MEAN CORPUSCULAR HEMOGLOBIN 28.6 pg (27.0-31.0); MEAN CORPUSCULAR HGB CONC 33.3 g/dL (32.0-36.0); MEAN CORPUSCULAR VOLUME 86.1 fL (81.0-99.0); MEAN PLATELET VOLUME 9.3 fL (7.9-10.8); MONOCYTES # (AUTO) 0.4 10^3/uL (0.0-1.0); MONOCYTES % (AUTO) 4.4 %; NEUTROPHILS # (AUTO) 6.5 10^3/uL (1.5-6.6); NEUTROPHILS % (AUTO) 64.6 %; PLT - PLATELET COUNT 324 10^3/uL (130-450); RED BLOOD COUNT 4.21 10^6/uL (4.20-5.40); RED CELL DISTRIBUTION WIDTH 13.6 % (12.0-15.0)
[2017-10-10 18:41] LABS: ALBUMIN 3.8 g/dL (3.2-5.5); ALBUMIN/GLOBULIN RATIO 1.2 (1.0-2.2); BILIRUBIN,TOTAL 0.2 mg/dL (0.2-1.0); CALCIUM 8.4 mg/dL (8.5-10.3); CREATININE 0.5 mg/dL (0.4-1.0)
[2017-10-10] MEDS ORDERED: IOPAMIDOL-300 100 ML VIAL ONE (19:26)
[2017-10-10] MEDS ORDERED: IOPAMIDOL-300 100 ML VIAL IVP ONE (19:35)
--- NOTE | 2017-10-10 19:58 | CT Report ---
EXAM: CT ABDOMEN AND PELVIS EXAM DATE: 10/10/2017 07:41 PM. CLINICAL HISTORY: R sided abd pain 1 week s/p VINNY. COMPARISONS: Pelvic ultrasound 08/16/2017. CT abdomen pelvis 07/04/2017, 11/11/2016. TECHNIQUE: Routine helical CT imaging was performed through the abdomen and pelvis. IV contrast: 100M L ISOVUE 300. Enteric contrast: No. Reconstructions: Coronal and sagittal. In accordance with CT protocol optimization, one or more of the following dose reduction techniques w ere utilized for this exam: automated exposure control, adjustment of mA and/or KV based on patient s ize, or use of iterative reconstructive technique. FINDINGS: Lung Bases: Minimal dependent bibasilar atelectasis. Liver: Normal. No masses. Gallbladder/Bile Ducts: Fold at the gallbladder fundus. No ductal dilatation. Spleen: Normal. Pancreas: Normal. Adrenal Glands: Normal. Kidneys: 7 cm simple bilateral renal cortical cysts. No hydronephrosis. 2 tiny calcifications/calculi in the medial lower pole of the left kidney. Peritoneal Cavity/Bowel: Unopacified stomach and small bowel are nondistended. Mobile cecum which ext ends into the pelvis. Appendix is not clearly identified. There is a small amount of formed stool in the colon. There is no pericolonic fat stranding. There is no lymphadenopathy. There is punctate pneu moperitoneum anteriorly in the pelvis. There is small volume free fluid in the pelvis. In the left pe lvis/adnexa, there is a 3.9 x 3.4 x 4.5 cm rim-enhancing fluid collection. Pelvic Organs: Small volume bladder. Uterus surgically absent. Rim-enhancing left adnexal fluid colle ction described above. Right adnexa unremarkable. Vasculature: No aneurysms or other significant abnormality. Bones: No significant abnormality. Other: Small amount of deep subcutaneous gas in the right lower quadrant consistent with recent lapar oscopy. Wispy fat stranding related to trocar sites in the lower abdominal wall bilaterally. No discr ete abdominal wall fluid collection. IMPRESSION: 1. 3.9 x 3.4 x 4.5 cm rim-enhancing left adnexal fluid collection, new since June 2017. The findin g could represent a postoperative abscess. A large corpus luteum is a possibility if the left ovary r emains. 2. Small volume pelvic free fluid. Minimal pelvic pneumoperitoneum. 3. Scattered subcutaneous gas in the lower quadrant anterior abdominal wall, consistent with recent l aparoscopy. No abdominal wall hematoma or fluid collection is identified. [facility] Referring Provider Line: [phone] SITE ID: [id number]
[2017-10-10 20:07] VITALS: BP 105/80
== END 2017-10-10 21:53 | disposition short-term general hospital (02) ==
LOC: ED 15:59
DX: T81.4XXA Infection following a procedure, initial encounter (principal)
CPT/HCPCS: 74177; 80053; 81003; 83690; 85025; 96361; 96374; 96375; 96376; 99283; 99284; J1170; J1200; Q9967; 36415; 81001; 87086

== ENCOUNTER 2017-10-10 21:46 | Outpatient (CLI) | payer MEDICAID | END 2017-10-10 21:47 | disposition short-term general hospital (02) | LOC: EMS 21:46 | PROVIDERS: ATTEND Surgery | DX: R10.9 Unspecified abdominal pain (principal); R11.2 Nausea with vomiting, unspecified; Z90.710 Acquired absence of both cervix and uterus | CPT/HCPCS: A0170; A0425; A0426 ==

== ENCOUNTER 2017-10-27 12:42 | Emergency (ER) | payer MEDICAID ==
[2017-10-27 13:24] LABS: BILIRUBIN,URINE NEGATIVE (NEGATIVE); GLUCOSE, URINE (UA) NEGATIVE (NEGATIVE); KETONES,URINE (UA) NEGATIVE (NEGATIVE); LEUKOCYTE ESTERASE, URINE NEGATIVE (NEGATIVE); NITRITE,URINE NEGATIVE (NEGATIVE); OCCULT BLOOD,URINE SMALL (NEGATIVE); PROTEIN,URINE NEGATIVE (NEGATIVE); UROBILINOGEN,URINE 0.2 (NORMAL) E.U./dL (NORMAL)
[2017-10-27 13:25] LABS: CLARITY,URINE CLEAR (CLEAR)
[2017-10-27 13:35] LABS: BASOPHILS # (AUTO) 0.1 10^3/uL (0.0-0.1); EOSINOPHILS # (AUTO) 0.4 10^3/uL (0.0-0.7); EOSINOPHILS % (AUTO) 5.4 %; HGB - HEMOGLOBIN 12.8 g/dL (12.0-16.0); LYMPHOCYTES # (AUTO) 2.4 10^3/uL (1.5-3.5); MEAN CORPUSCULAR HGB CONC 32.6 g/dL (32.0-36.0); MEAN CORPUSCULAR VOLUME 89.1 fL (81.0-99.0); MEAN PLATELET VOLUME 10.1 fL (7.9-10.8); MONOCYTES # (AUTO) 0.5 10^3/uL (0.0-1.0); MONOCYTES % (AUTO) 6.2 %; NEUTROPHILS # (AUTO) 4.8 10^3/uL (1.5-6.6); NEUTROPHILS % (AUTO) 58.4 %; PLT - PLATELET COUNT 301 10^3/uL (130-450); RED BLOOD COUNT 4.42 10^6/uL (4.20-5.40); RED CELL DISTRIBUTION WIDTH 13.9 % (12.0-15.0); WHITE BLOOD COUNT 8.2 x10^3/uL (4.8-10.8)
[2017-10-27 13:37] LABS: BACTERIA,URINE Few /HPF (None Seen); RBC,URINE 0-5 /HPF (0-5); SQUAMOUS EPITHELIAL CELL,UR MOD Squamous (<= Few)
[2017-10-27 13:48] LABS: ALBUMIN 4.1 g/dL (3.2-5.5); ALBUMIN/GLOBULIN RATIO 1.3 (1.0-2.2); BILIRUBIN,TOTAL 0.7 mg/dL (0.2-1.0); CALCIUM 8.8 mg/dL (8.5-10.3); CREATININE 0.6 mg/dL (0.4-1.0); TOTAL PROTEIN 7.3 g/dL (6.7-8.2)
--- NOTE | 2017-10-27 15:44 | ED Physician Documentation ---
PD HPI FEMALE - Stated complaint Stated Complaint: PELVIC PX - Chief complaint Chief Complaint: Abd Pain - History obtained from History obtained from: Patient - History of Present Illness Timing - onset: How many days ago (3 days of worsening left abd pain, similar to infection she recently had. Was improved with IV then PO abx and has finished the abx about 4 days ago and had resumption of pain and feeling feverish started the day after that.) Timing - duration: Days (3) Timing - details: Gradual onset, Still present, Waxing and waning Associated symptoms: Fever (subjective yesterday and today earlier.), Abdominal pain. 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 : None HEENT: Chronic sinusitis Psych: None Musculoskeletal: None Derm: None - Past Surgical History Past Surgical History: Yes General: Appendectomy Ortho: Other /CITY EDITOR: section, Tubal ligation, Hysterectomy, Other HEENT: Tonsil/Adenoidectomy - Present Medications Home Medications: Ambulatory Orders Medication Instructions Recorded Confirmed Sucralfate 1 gm PO AC #30 tablet 11/14/16 07/04/17 EPINEPHrine [Epinephrine] 0.3 mg IJ ONCE PRN #1 auto.injct 10/27/17 Metronidazole [Flagyl] 500 mg PO BID #14 tablet 10/27/17 Ondansetron Odt [Zofran] 4 mg TL Q6H PRN #30 tablet 10/27/17 Oxycodone HCl/Acetaminophen 1 each PO Q6H PRN #20 tablet 10/27/17 [Percocet 5-325 mg Tablet] diphenhydrAMINE [Benadryl] 25 mg PO Q4-6H PRN #30 capsule 10/27/17 raNITIdine [Zantac] 150 mg PO BID 10/27/17 10/27/17 - Allergies Allergies/Adverse Reactions: Allergies Allergy/AdvReac Type Severity Reaction Status Date / Time aspirin Allergy Severe Anaphylaxis Verified 10/27/17 13:10 gelatin Allergy Severe Respiratory Verified 10/27/17 13:10 hydromorphone HCl * Allergy Severe Hives Verified 10/27/17 13:10 [From Dilaudid] morphine Allergy Severe Hives Verified 10/27/17 13:10 nitrofurantoin Allergy Severe Respiratory Verified 10/27/17 13:10 macrocrystalline * [From Macrobid] acetaminophen [From Ofirmev] Allergy Hives Verified 10/27/17 13:10 amoxicillin Allergy Anaphylaxis Verified 10/27/17 13:10 Beef Containing Products Allergy Anaphylaxis Verified 10/27/17 13:10 cinnamon Allergy Unknown Verified 10/27/17 13:10 famotidine [From Pepcid] Allergy Anaphylaxis Verified 10/27/17 13:10 fentanyl Allergy Unknown Verified 10/27/17 13:10 fluconazole Allergy Hives Verified 10/27/17 13:10 meperidine HCl * Allergy Anaphylaxis Verified 10/27/17 13:10 [From Demerol] Penicillins Allergy Anaphylaxis Verified 10/27/17 13:10 prednisone Allergy Anaphylaxis Verified 10/27/17 13:10 tamsulosin HCl * Allergy Unknown Verified 10/27/17 13:10 [From Flomax] wheat Allergy Hives Verified 10/27/17 13:10 hydrocodone [Hydrocodone] AdvReac Severe Emesis Verified 10/27/17 13:10 butorphanol AdvReac Intermediate Anxiety Verified 10/27/17 13:10 adhesive AdvReac Rash Verified 10/27/17 13:10 fexofenadine AdvReac Edema Verified 10/27/17 13:10 NSAIDS (Non-Steroidal AdvReac Cramps Verified 10/27/17 13:10 Anti-Inflamma paprika AdvReac Anaphylaxis Verified 10/27/17 13:10 - Social History Does the pt smoke?: No Smoking Status: Never smoker Does the pt drink ETOH?: No Does the pt have substance abuse?: No - Immunizations Immunizations are current?: Yes - POLST Patient has POLST: No PD ED PE NORMAL - Vitals Vital signs reviewed: Yes - General General: Alert and oriented X 3, Well developed/nourished, Other (appears in pain) - HEENT HEENT: Moist mucous membranes, Pharynx benign - Neck Neck: Supple, no meningeal sign, No adenopathy - Cardiac Cardiac: RRR, No murmur - Respiratory Respiratory: Clear bilaterally - Abdomen Abdomen: Normal bowel sounds, Non distended, No organomegaly, Other (incision looks okay without infection. Tenderness in left lower abd with local guarding but not rebound nor percussion tenderness. ) - Female Female : Deferred - Rectal Rectal: Deferred - Back Back: No CVA TTP - Derm Derm: Normal color, Warm and dry, No rash - Neuro Neuro: Alert and oriented X 3, No motor deficit, Normal speech Results - Vitals Vitals: Vital Signs - 24 hr 10/27/17 10/27/17 13:07 19:02 Temperature 36.8 C Heart Rate 95 70 Respiratory 18 14 Rate Blood Pressure 114/78 101/64 O2 Saturation 99 99 Oxygen O2 Source Room air - Labs Labs: Laboratory Tests 10/27/17 10/27/17 10/27/17 13:15 13:31 13:31 WBC 8.2 RBC 4.42 Hgb 12.8 Hct 39.4 MCV 89.1 MCH 29.0 MCHC 32.6 RDW 13.9 Plt Count 301 MPV 10.1 Neut # 4.8 Lymph # 2.4 [place] # 0.5 Eos # 0.4 Baso # 0.1 Absolute Nucleated RBC 0.00 Nucleated RBC % 0.0 Sodium 137 Potassium 3.8 Chloride 105 Carbon Dioxide 23 Anion Gap 9.0 BUN 14 Creatinine 0.6 Estimated GFR (MDRD) 117 Glucose 98 Calcium 8.8 Total Bilirubin 0.7 AST 17 ALT 14 Alkaline Phosphatase 49 Total Protein 7.3 Albumin 4.1 Globulin 3.2 Albumin/Globulin Ratio 1.3 Lipase 42 Urine Color YELLOW Urine Clarity CLEAR Urine pH 6.0 Ur Specific [place] 1.025 Urine Protein NEGATIVE Urine Glucose (UA) NEGATIVE Urine Ketones NEGATIVE Urine Occult Blood SMALL H Urine Nitrite NEGATIVE Urine Bilirubin NEGATIVE Urine Urobilinogen 0.2 (NORMAL) Ur Leukocyte Esterase NEGATIVE Urine RBC 0-5 Urine WBC 0-3 Ur Squamous Epith Cells MOD Squamous H Urine Bacteria Few Ur Microscopic Review INDICATED Urine Culture Comments NOT INDICATED PD MEDICAL DECISION MAKING - ED course Complexity details: reviewed results (abscess resolved. Mild free fluid in pelvis, to consider if some infection or not, but given her symptoms, would consider likely infectious. Abx should help though. ), d/w senior business consultant (vocational nurse lvn CITY EDITOR at [employer] - to resume flagyl and give pain meds, to call office tomorrow and they will see her in next 2-3 days. ) Departure - Departure Disposition: Home, Self Care Clinical Impression: Pelvic pain Post op infection Qualifiers: Encounter type: subsequent encounter Qualified Code(s): T81.4XXD - Infection following a procedure, subsequent encounter Condition: Stable Record reviewed to determine appropriate education?: Yes Follow-Up: Diego Perez MD [Physician No Access] - Prescriptions: diphenhydrAMINE [Benadryl] 25 mg PO Q4-6H PRN #30 capsule PRN Reason: Itching EPINEPHrine [Epinephrine] 0.3 mg IJ ONCE PRN #1 auto.injct PRN Reason: Anaphylaxis Metronidazole [Flagyl] 500 mg PO BID #14 tablet Ondansetron Odt [Zofran] 4 mg TL Q6H PRN #30 tablet PRN Reason: Nausea / Vomiting Oxycodone HCl/Acetaminophen [Percocet 5-325 mg Tablet] 1 each PO Q6H PRN #20 tablet PRN Reason: Pain Comments: Continue current medications. Ondansetron if needed for nausea. Flagyl twice daily for a week for presumed persistent infection. Percocet if needed for pain. Benadryl if needed for itching or rash. Call Dr. Perez's office tomorrow for an appointment and the on-call provider said they will get you in in the next few days. Discharge Date/Time: 10/27/17 20:34
[2017-10-27] MEDS ORDERED: diphenhydrAMINE INJ 50 MG/ML VIAL IVP STA ×3 (16:00→19:25)
[2017-10-27] MEDS ORDERED: SODIUM CHLORIDE 0.9% 1,000 ML IV ONE (16:00)
[2017-10-27] MEDS ORDERED: HYDROmorphone 2 MG/ML VIAL IVP STA ×2 (16:02→18:45)
[2017-10-27] MEDS ORDERED: ONDANSETRON 4 MG/2 ML VIAL IVP STA (16:43)
[2017-10-27] MEDS ORDERED: IOPAMIDOL-300 100 ML VIAL ONE (16:55)
[2017-10-27] MEDS ORDERED: IOPAMIDOL-300 100 ML VIAL IVP ONE (17:18)
--- NOTE | 2017-10-27 18:25 | CT Report ---
EXAM: CT ABDOMEN AND PELVIS EXAM DATE: 10/27/2017 05:00 PM. CLINICAL HISTORY: Lower abd pain recur after recent postop abscess following VINNY. COMPARISONS: CT abdomen pelvis 10/10/2017. TECHNIQUE: Routine helical CT imaging was performed through the abdomen and pelvis. IV contrast: 100 cc Isovue-300. Enteric contrast: No. Reconstructions: Coronal and sagittal. Patient was pretreated wi Benadryl for reported allergy. In accordance with CT protocol optimization, one or more of the following dose reduction techniques w ere utilized for this exam: automated exposure control, adjustment of mA and/or KV based on patient s ize, or use of iterative reconstructive technique. FINDINGS: Lung Bases: Trace right pleural effusion and minor dependent atelectasis. Liver: Mild steatosis. No focal lesion. Widely patent vasculature. Gallbladder/Bile Ducts: Relatively contracted gallbladder. No calcified gallstone or ductal dilatatio n. Spleen: Normal. Small accessory splenule. Pancreas: Unremarkable. Adrenal Glands: No nodule. Kidneys: No hydronephrosis. Small bilateral renal cysts. Stable 2 adjacent small calcifications in th e left inferior pole. Peritoneal Cavity/Bowel: No intestinal dilatation or acute inflammation identified. Appendix is not v isualized. Moderate stool in the cecum and ascending colon. Residual mild nonspecific haziness of fat planes in the right upper quadrant. Minor dependent pelvic free fluid without enhancing margins. No loculated collection or free air. No pathologic adenopathy by CT size criteria. Retroperitoneum: No mass or adenopathy. Pelvic Organs: Moderately contracted bladder and tiny urachal remnant, with no focal abnormality iden tified. Hysterectomy. Right ovary not seen. Resolution of previous rim-enhancing left adnexal collect ion. A 3.2 x 2 cm left adnexal structure has the appearance of an ovary with small follicles up to 1. 4 cm. No ovarian cyst by size criteria. No adenopathy evident. Vasculature: No aneurysms or other significant abnormality. Bones: No significant abnormality. IMPRESSION: 1. Resolution of previous rim-enhancing 4.5 cm left adnexal fluid collection. 2. A 3.2 x 2 cm left adnexal structure has the appearance of an ovary with small follicles up to 1.4 cm in diameter. Please correlate with surgical history. 3. Hysterectomy. Right ovary is not identified. 4. Minor nonspecific dependent pelvic free fluid without enhancing margins. No convincing abscess. 5. No other acute inflammatory or obstructive process identified. 6. Trace right pleural effusion and minor subjacent atelectasis. [facility] Referring Provider Line: [phone] SITE ID: [id number]
[2017-10-27] MEDS ORDERED: metroNIDAZOLE 500 MG/100 ML 500 MG/100 ML BAG IV ONE (18:45)
[2017-10-27 19:03] VITALS: BP 101/64
== END 2017-10-27 20:34 | disposition home or self-care (01) ==
LOC: ED 12:42
DX: R10.2 Pelvic and perineal pain (principal); T81.4XXD Infection following a procedure, subsequent encounter; Z87.11 Personal history of peptic ulcer disease; Z87.42 Personal history of other diseases of the female genital tract
CPT/HCPCS: 36415; 74177; 80053; 81001; 83690; 85025; 96361; 96374; 96375; 96376; 99283; 99284; J1170; J1200; Q9967; 81003; 87086

== ENCOUNTER 2017-11-24 16:14 | Emergency (ER) | payer MEDICAID ==
[2017-11-24 16:25] VITALS: BP 99/68
[2017-11-24] MEDS ORDERED: CLINDAMYCIN 900 MG/50 ML 50 ML IV ONE (16:48)
[2017-11-24] MEDS ORDERED: oxyCODONE 5 MG TABLET PO STA ×2 (16:50→18:12)
--- NOTE | 2017-11-24 16:54 | ED Physician Documentation ---
History of Present Illness - Stated complaint Stated Complaint: MOUTH PX - Chief complaint Chief Complaint: Heent - History obtained from History obtained from: Patient - History of Present Illness Timing: Other (She is 6 days out from a dental extraction by Dr. Coles of I think #5 with increased pain. She also has a long-standing ulcer history and the combination of the antibiotic, Augmentin and NSAIDs is making her burning epigastric pain worse than normal despite taking sucralfate, Prilosec twice daily and ranitidine. She denies fevers. No possibility of .) Review of Systems Constitutional: denies: Fever, Chills Throat: reports: Dental pain / toothache. 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 HEENT: Chronic sinusitis Psych: None Musculoskeletal: None Derm: None - Past Surgical History Past Surgical History: Yes General: Appendectomy Ortho: Other /RELIEF SALESPERSON: section, Tubal ligation, Hysterectomy, Other HEENT: Tonsil/Adenoidectomy - Present Medications Home Medications: Ambulatory Orders Medication Instructions Recorded Confirmed Sucralfate 1 gm PO AC #30 tablet 11/14/16 07/04/17 EPINEPHrine [Epinephrine] 0.3 mg IJ ONCE PRN #1 auto.injct 10/27/17 Metronidazole [Flagyl] 500 mg PO BID #14 tablet 10/27/17 Ondansetron Odt [Zofran] 4 mg TL Q6H PRN #30 tablet 10/27/17 Oxycodone HCl/Acetaminophen 1 each PO Q6H PRN #20 tablet 10/27/17 [Percocet 5-325 mg Tablet] diphenhydrAMINE [Benadryl] 25 mg PO Q4-6H PRN #30 capsule 10/27/17 raNITIdine [Zantac] 150 mg PO BID 10/27/17 10/27/17 Clindamycin [Cleocin] 300 mg PO Q6H 10 Days capsule 11/24/17 Oxycodone HCl/Acetaminophen 1 - 2 tab PO Q4H PRN #15 tablet 11/24/17 [Percocet 5-325 mg Tablet] - Allergies Allergies/Adverse Reactions: Allergies Allergy/AdvReac Type Severity Reaction Status Date / Time aspirin Allergy Severe Anaphylaxis Verified 10/27/17 13:10 gelatin Allergy Severe Respiratory Verified 10/27/17 13:10 hydromorphone HCl * Allergy Severe Hives Verified 10/27/17 13:10 [From Dilaudid] morphine Allergy Severe Hives Verified 10/27/17 13:10 nitrofurantoin Allergy Severe Respiratory Verified 10/27/17 13:10 macrocrystalline * [From Macrobid] acetaminophen [From Ofirmev] Allergy Hives Verified 10/27/17 13:10 amoxicillin Allergy Anaphylaxis Verified 10/27/17 13:10 Beef Containing Products Allergy Anaphylaxis Verified 10/27/17 13:10 cinnamon Allergy Unknown Verified 10/27/17 13:10 famotidine [From Pepcid] Allergy Anaphylaxis Verified 10/27/17 13:10 fentanyl Allergy Unknown Verified 10/27/17 13:10 fluconazole Allergy Hives Verified 10/27/17 13:10 meperidine HCl * Allergy Anaphylaxis Verified 10/27/17 13:10 [From Demerol] Penicillins Allergy Anaphylaxis Verified 10/27/17 13:10 prednisone Allergy Anaphylaxis Verified 10/27/17 13:10 tamsulosin HCl * Allergy Unknown Verified 10/27/17 13:10 [From Flomax] wheat Allergy Hives Verified 10/27/17 13:10 hydrocodone [Hydrocodone] AdvReac Severe Emesis Verified 10/27/17 13:10 butorphanol AdvReac Intermediate Anxiety Verified 10/27/17 13:10 adhesive AdvReac Rash Verified 10/27/17 13:10 fexofenadine AdvReac Edema Verified 10/27/17 13:10 NSAIDS (Non-Steroidal AdvReac Cramps Verified 10/27/17 13:10 Anti-Inflamma paprika AdvReac Anaphylaxis Verified 10/27/17 13:10 - Social History Does the pt smoke?: No Smoking Status: Never smoker Does the pt drink ETOH?: No Does the pt have substance abuse?: No - Immunizations Immunizations are current?: Yes - POLST Patient has POLST: No PD ED PE NORMAL - Vitals Vital signs reviewed: Yes - General General: Alert and oriented X 3, No acute distress - HEENT HEENT: Other (There is a healthy-looking extraction site from #5 but there is definitely swelling and tenderness lateral to this but there is no trismus or sublingual edema.) - Neck Neck: Supple, no meningeal sign, No bony TTP - Neuro Neuro: Alert and oriented X 3, Normal speech - Psych Psych: Normal mood, Normal affect Results - Vitals Vitals: Vital Signs - 24 hr 11/24/17 16:20 Temperature 36.9 C Heart Rate 85 Respiratory 18 Rate Blood Pressure 99/68 O2 Saturation 97 Oxygen O2 Source Room air Departure - Departure Disposition: 01 Home, Self Care Clinical Impression: Dental abscess Condition: Good Record reviewed to determine appropriate education?: Yes Instructions: ED Dental Abscess Facial Cellulitis Follow-Up: Km Coles D[facility] [Provider Admit Priv/Credential] - Tomorrow Prescriptions: Clindamycin [Cleocin] 300 mg PO Q6H 10 Days capsule Oxycodone HCl/Acetaminophen [Percocet 5-325 mg Tablet] 1 - 2 tab PO Q4H PRN #15 tablet PRN Reason: Pain
[2017-11-24] MEDS ORDERED: diphenhydrAMINE INJ 50 MG/ML VIAL IVP STA (17:20)
== END 2017-11-24 18:21 | disposition home or self-care (01) ==
LOC: ED 16:14
DX: K04.7 Periapical abscess without sinus (principal); Z98.818 Other dental procedure status; Z87.11 Personal history of peptic ulcer disease
CPT/HCPCS: 96374; 96375; 99283; A9270; J1200

== ENCOUNTER 2018-01-13 20:17 | Emergency (ER) | payer MEDICAID ==
[2018-01-13 20:23] VITALS: BP 107/69
--- NOTE | 2018-01-13 22:38 | ED Physician Documentation ---
PD HPI SKIN - Stated complaint Stated Complaint: R ARM PX/POSS RASH - Chief complaint Chief Complaint: Wound - History obtained from History obtained from: Patient - History of Present Illness Timing - onset: How many days ago (3) Timing - duration: Days (3) Timing - details: Gradual onset, Still present, Waxing and waning Location: RUE Quality / character: Itchy, Swelling Associated symptoms: No: Fever, Myalgias Contributing factors: Insect bite /sting Similar symptoms before: Has not had sx before Recently seen: Not recently seen - Additional information Additional information: 32 y/o female with mosquitor bites to the forearm appears to have increasing redness and mild swelling to the forearm. She is not otherwise ill. Review of Systems Constitutional: denies: Fever Eyes: denies: Decreased vision Ears: denies: Ear pain Nose: denies: Rhinorrhea / runny nose, Congestion Throat: denies: Sore throat Cardiac: denies: Chest pain / pressure, Palpitations Respiratory: denies: Dyspnea, Cough GI: denies: Abdominal Pain, Nausea, Vomiting : denies: Dysuria, Frequency Skin: reports: Rash, Other (There is some erythema under the right breast and in the left thigh. 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 : None HEENT: Chronic sinusitis Psych: None Musculoskeletal: None Derm: None - Past Surgical History Past Surgical History: Yes General: Appendectomy Ortho: Other /FAMILY SPECIALIST: section, Tubal ligation, Hysterectomy, Other HEENT: Tonsil/Adenoidectomy - Present Medications Home Medications: Ambulatory Orders Medication Instructions Recorded Confirmed Sucralfate 1 gm PO AC #30 tablet 11/14/16 07/04/17 EPINEPHrine [Epinephrine] 0.3 mg IJ ONCE PRN #1 auto.injct 10/27/17 Metronidazole [Flagyl] 500 mg PO BID #14 tablet 10/27/17 Ondansetron Odt [Zofran] 4 mg TL Q6H PRN #30 tablet 10/27/17 Oxycodone HCl/Acetaminophen 1 each PO Q6H PRN #20 tablet 10/27/17 [Percocet 5-325 mg Tablet] diphenhydrAMINE [Benadryl] 25 mg PO Q4-6H PRN #30 capsule 10/27/17 raNITIdine [Zantac] 150 mg PO BID 10/27/17 10/27/17 Clindamycin [Cleocin] 300 mg PO Q6H 10 Days capsule 11/24/17 Oxycodone HCl/Acetaminophen 1 - 2 tab PO Q4H PRN #15 tablet 11/24/17 [Percocet 5-325 mg Tablet] Sulfamethoxazole/Trimethoprim 1 each PO BID #10 tablet 01/13/18 [Sulfamethoxazole-Tmp Ds Tablet] hydrOXYzine PAMOATE [Vistaril] 25 mg PO Q6H PRN #20 capsule 01/13/18 - Allergies Allergies/Adverse Reactions: Allergies Allergy/AdvReac Type Severity Reaction Status Date / Time aspirin Allergy Severe Anaphylaxis Verified 10/27/17 13:10 gelatin Allergy Severe Respiratory Verified 10/27/17 13:10 hydromorphone HCl * Allergy Severe Hives Verified 10/27/17 13:10 [From Dilaudid] morphine Allergy Severe Hives Verified 10/27/17 13:10 nitrofurantoin Allergy Severe Respiratory Verified 10/27/17 13:10 macrocrystalline * [From Macrobid] acetaminophen [From Ofirmev] Allergy Hives Verified 10/27/17 13:10 amoxicillin Allergy Anaphylaxis Verified 10/27/17 13:10 Beef Containing Products Allergy Anaphylaxis Verified 10/27/17 13:10 cinnamon Allergy Unknown Verified 10/27/17 13:10 famotidine [From Pepcid] Allergy Anaphylaxis Verified 10/27/17 13:10 fentanyl Allergy Unknown Verified 10/27/17 13:10 fluconazole Allergy Hives Verified 10/27/17 13:10 meperidine HCl * Allergy Anaphylaxis Verified 10/27/17 13:10 [From Demerol] Penicillins Allergy Anaphylaxis Verified 10/27/17 13:10 prednisone Allergy Anaphylaxis Verified 10/27/17 13:10 tamsulosin HCl * Allergy Unknown Verified 10/27/17 13:10 [From Flomax] wheat Allergy Hives Verified 10/27/17 13:10 hydrocodone [Hydrocodone] AdvReac Severe Emesis Verified 10/27/17 13:10 butorphanol AdvReac Intermediate Anxiety Verified 10/27/17 13:10 adhesive AdvReac Rash Verified 10/27/17 13:10 fexofenadine AdvReac Edema Verified 10/27/17 13:10 NSAIDS (Non-Steroidal AdvReac Cramps Verified 10/27/17 13:10 Anti-Inflamma paprika AdvReac Anaphylaxis Verified 10/27/17 13:10 - Social History Does the pt smoke?: No Smoking Status: Never smoker Does the pt drink ETOH?: No Does the pt have substance abuse?: No - Immunizations Immunizations are current?: Yes - POLST Patient has POLST: No PD ED PE NORMAL - Vitals Vital signs reviewed: Yes (normal ) - General General: Alert and oriented X 3, No acute distress, Well developed/nourished - HEENT HEENT: Atraumatic, PERRL - Respiratory Respiratory: No respiratory distress - Derm Derm: Normal color, Warm and dry, Other (There is an area over the left medial thigh that shows some post inflamitory hyperpigmentation and some area under the right breast that appears non-specifically inflamed. The area over the right forearm has 2 mosquito bites with surrounding erythema consistent with superficial infection. ) - Extremities Extremities: No deformity, No edema, Other (as above the right forearm appears to have some erythema with slight swelling over the dorsum of the forearm. 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, No motor deficit, No sensory deficit, Normal speech Eye Opening: Spontaneous Motor: Obeys Commands Verbal: Oriented GCS Score: 15 - Psych Psych: Normal mood, Normal affect Results - Vitals Vitals: Vital Signs - 24 hr 01/13/18 20:21 Temperature 36.2 C L Heart Rate 85 Respiratory 16 Rate Blood Pressure 107/69 O2 Saturation 98 Oxygen O2 Source Room air PD MEDICAL DECISION MAKING - ED course Complexity details: considered differential, d/w patient ED course: 32-year-old female presents with 2 separate problems one appears to be a set of 2 mosquito bites on her forearm that appear superficially infected. She is prescribed some Septra for this. She also has some nonspecific rash under her right breast and an area on her left medial thigh that is slightly older and appears to have some postinflammatory hyperpigmentation. This appears very nonspecific and I have asked the patient follow-up with dermatology for more definitive explanation. - Sepsis Event Vital Signs: Vital Signs - 24 hr 01/13/18 20:21 Temperature 36.2 C L Heart Rate 85 Respiratory 16 Rate Blood Pressure 107/69 O2 Saturation 98 Oxygen O2 Source Room air Departure - Departure Disposition: 01 Home, Self Care Clinical Impression: Infected insect bite Qualifiers: Encounter type: initial encounter Qualified Code(s): W57.XXXA - Bitten or stung by nonvenomous insect and other nonvenomous arthropods, initial encounter Condition: Stable Instructions: ED Sting Bite Insect Infec Follow-Up: [facility] [Provider Group] Sean Acevedo PA-C [Physician No Access] - Prescriptions: hydrOXYzine PAMOATE [Vistaril] 25 mg PO Q6H PRN #20 capsule PRN Reason: Itching Sulfamethoxazole/Trimethoprim [Sulfamethoxazole-Tmp Ds Tablet] 1 each PO BID # 10 tablet Discharge Date/Time: 01/13/18 23:24
[2018-01-13] MEDS ORDERED: SULFAM/TRIM 800/160 Prepack 2 PO ONE (22:40)
== END 2018-01-13 23:24 | disposition home or self-care (01) ==
LOC: ED 20:17
DX: S50.861A Insect bite (nonvenomous) of right forearm, initial encounter (principal); L08.9 Local infection of the skin and subcutaneous tissue, unspecified; W57.XXXA Bitten or stung by nonvenomous insect and other nonvenomous arthropods, initial encounter; R21 Rash and other nonspecific skin eruption
CPT/HCPCS: 99283

== ENCOUNTER 2018-03-23 09:56 | Outpatient (CLI) | payer MEDICAID | END 2018-03-23 09:57 | disposition critical access hospital (66) | LOC: EMS 09:56 | PROVIDERS: ATTEND Surgery | DX: R06.00 Dyspnea, unspecified (principal); L29.9 Pruritus, unspecified; T63.441A Toxic effect of venom of bees, accidental (unintentional), initial encounter; Y92.028 Other place in mobile home as the place of occurrence of the external cause | CPT/HCPCS: A0425; A0427; A0999 ==

== ENCOUNTER 2018-03-23 10:11 | Emergency (ER) | payer MEDICAID ==
[2018-03-23] MEDS ORDERED: LORazepam 2 MG/ML VIAL IVP STA (10:15)
--- NOTE | 2018-03-23 10:18 | ED Physician Documentation ---
History of Present Illness - Stated complaint Stated Complaint: BEE STING - Additonal information Additional information: hx from EMS and pt and EMR 31 f known to our ED for prior episodes of stridor an dprior scope showing no swelling and an AARON cautioning not to intubate for these sx stung by bee left hand developed stridor no hives no oral swelling used her epi pen called 911 and given epis pen X 2 more for total of 3 as well as racemic epi solumedrol and benadryl IV still with stridor denies preg Review of Systems Constitutional: denies: Fever Throat: denies: Sore throat Cardiac: denies: Chest pain / pressure Respiratory: reports: Dyspnea Skin: denies: Rash PD PAST MEDICAL HISTORY - Past Medical History Cardiovascular: Other Respiratory: Other Endocrine/Autoimmune: None GI: Ulcers 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 : None HEENT: Chronic sinusitis Psych: None Musculoskeletal: None Derm: None - Past Surgical History Past Surgical History: Yes General: Appendectomy Ortho: Other /PLASTIC WELDER: section, Tubal ligation, Hysterectomy, Other HEENT: Tonsil/Adenoidectomy - Present Medications Home Medications: Ambulatory Orders Medication Instructions Recorded Confirmed Sucralfate 1 gm PO AC #30 tablet 11/14/16 07/04/17 EPINEPHrine [Epinephrine] 0.3 mg IJ ONCE PRN #1 auto.injct 10/27/17 Metronidazole [Flagyl] 500 mg PO BID #14 tablet 10/27/17 Ondansetron Odt [Zofran] 4 mg TL Q6H PRN #30 tablet 10/27/17 Oxycodone HCl/Acetaminophen 1 each PO Q6H PRN #20 tablet 10/27/17 [Percocet 5-325 mg Tablet] diphenhydrAMINE [Benadryl] 25 mg PO Q4-6H PRN #30 capsule 10/27/17 raNITIdine [Zantac] 150 mg PO BID 10/27/17 10/27/17 Clindamycin [Cleocin] 300 mg PO Q6H 10 Days capsule 11/24/17 Oxycodone HCl/Acetaminophen 1 - 2 tab PO Q4H PRN #15 tablet 11/24/17 [Percocet 5-325 mg Tablet] Sulfamethoxazole/Trimethoprim 1 each PO BID #10 tablet 01/13/18 [Sulfamethoxazole-Tmp Ds Tablet] hydrOXYzine PAMOATE [Vistaril] 25 mg PO Q6H PRN #20 capsule 01/13/18 Epinephrine [Epipen 2-Kolby] 0.3 mg IJ ONCE PRN #1 unit 03/23/18 - Allergies Allergies/Adverse Reactions: Allergies Allergy/AdvReac Type Severity Reaction Status Date / Time aspirin Allergy Severe Anaphylaxis Verified 03/23/18 10:17 gelatin Allergy Severe Respiratory Verified 03/23/18 10:17 hydromorphone HCl * Allergy Severe Hives Verified 03/23/18 10:17 [From Dilaudid] morphine Allergy Severe Hives Verified 03/23/18 10:17 nitrofurantoin Allergy Severe Respiratory Verified 03/23/18 10:17 macrocrystalline * [From Macrobid] acetaminophen [From Ofirmev] Allergy Hives Verified 03/23/18 10:17 amoxicillin Allergy Anaphylaxis Verified 03/23/18 10:17 Beef Containing Products Allergy Anaphylaxis Verified 03/23/18 10:17 cinnamon Allergy Unknown Verified 03/23/18 10:17 famotidine [From Pepcid] Allergy Anaphylaxis Verified 03/23/18 10:17 fentanyl Allergy Unknown Verified 03/23/18 10:17 fluconazole Allergy Hives Verified 03/23/18 10:17 meperidine HCl * Allergy Anaphylaxis Verified 03/23/18 10:17 [From Demerol] Penicillins Allergy Anaphylaxis Verified 03/23/18 10:17 prednisone Allergy Anaphylaxis Verified 03/23/18 10:17 tamsulosin HCl * Allergy Unknown Verified 03/23/18 10:17 [From Flomax] wheat Allergy Hives Verified 03/23/18 10:17 hydrocodone [Hydrocodone] AdvReac Severe Emesis Verified 03/23/18 10:17 butorphanol AdvReac Intermediate Anxiety Verified 03/23/18 10:17 adhesive AdvReac Rash Verified 03/23/18 10:17 fexofenadine AdvReac Edema Verified 03/23/18 10:17 NSAIDS (Non-Steroidal AdvReac Cramps Verified 03/23/18 10:17 Anti-Inflamma paprika AdvReac Anaphylaxis Verified 03/23/18 10:17 - Social History Does the pt smoke?: No Smoking Status: Never smoker Does the pt drink ETOH?: No Does the pt have substance abuse?: No - Immunizations Immunizations are current?: Yes - POLST Patient has POLST: No PD ED PE NORMAL - Vitals Vital signs reviewed: Yes - General General: Alert and oriented X 3 - HEENT HEENT: Moist mucous membranes, Other (no lip tongue or uvula swelling) - Neck Neck: Supple, no meningeal sign - Cardiac Cardiac: RRR - Respiratory Respiratory: Other (stridor) - Abdomen Abdomen: Soft, Non tender - Derm Derm: Normal color, Other (no hives, no retained stinger) - Neuro Neuro: Alert and oriented X 3 Results - Vitals Vitals: Vital Signs - 24 hr 03/23/18 03/23/18 03/23/18 10:13 10:47 11:55 Temperature 36.9 C Heart Rate 119 H 92 107 H Respiratory 22 18 16 Rate Blood Pressure 116/51 L 104/67 95/59 L O2 Saturation 98 96 98 03/23/18 12:47 Temperature 36.7 C Heart Rate 109 H Respiratory 17 Rate Blood Pressure 100/70 O2 Saturation 100 Oxygen O2 Source Room air PD MEDICAL DECISION MAKING - ED course ED course: reassured pt she has already received all the appropriate meds for allergix rxn and that at this time there is no oral swelling and things sweem to be improving she is very shaky from epi X 3 + racemic so will give ativan and cool mist to soothe airway will observe several hr on tele 2/ amt epi given anticipate improvement and eventually dc pt obs several hr sx better lungs clear no oral swelling she feels ready to go HR down - Sepsis Event Vital Signs: Vital Signs - 24 hr 03/23/18 03/23/18 03/23/18 10:13 10:47 11:55 Temperature 36.9 C Heart Rate 119 H 92 107 H Respiratory 22 18 16 Rate Blood Pressure 116/51 L 104/67 95/59 L O2 Saturation 98 96 98 03/23/18 12:47 Temperature 36.7 C Heart Rate 109 H Respiratory 17 Rate Blood Pressure 100/70 O2 Saturation 100 Oxygen O2 Source Room air Departure - Departure Disposition: 01 Home, Self Care Clinical Impression: Bee sting reaction Qualifiers: Injury intent: accidental or unintentional Condition: Good Instructions: ED Bite Sting Insect Gen Allergic React Prescriptions: Epinephrine [Epipen 2-Kolby] 0.3 mg IJ ONCE PRN #1 unit PRN Reason: Anaphylaxis Comments: Your symptoms are better now and it is safe for you to go home We would normally suggest you take prednisone claritin and pepcid for 3 more days to prevent - reoccurrence - but you are allergic to all those medications. So I have refilled your epi pen in case since you used yours today Follow up PMD as needed Return if worse Forms: Activity restrictions Discharge Date/Time: 03/23/18 12:56
[2018-03-23 12:48] VITALS: BP 100/70
== END 2018-03-23 12:56 | disposition home or self-care (01) ==
LOC: EDUNIT# → ED 10:11
DX: T63.441A Toxic effect of venom of bees, accidental (unintentional), initial encounter (principal)
CPT/HCPCS: 94644; 96374; 99283; J2060

== ENCOUNTER 2018-05-08 13:41 | Outpatient (CLI) | payer MEDICAID ==
--- NOTE | 2018-05-08 15:06 | XRAY Report ---
Reason: LEFT KNEE PAIN Procedure Date: 05/08/2018 Accession Number: [id number] / [id number] Procedure: XR - Knee 4 View LT CPT Code: FULL RESULT: EXAM: LEFT KNEE RADIOGRAPHY EXAM DATE: 05/08/2018 02:08 PM. CLINICAL HISTORY: Left knee pain. COMPARISON: None. TECHNIQUE: 4 views. FINDINGS: Bones: Normal. No fractures or bone lesions. Joints: Normal. No effusion. No subluxations. Soft Tissues: Normal. No soft tissue swelling. IMPRESSION: Normal knee radiography. RADIA
== END 2018-05-08 13:42 | disposition home or self-care (01) ==
LOC: DI 13:41
PROVIDERS: ATTEND Nurse Practitioner
DX: M25.562 Pain in left knee (principal)

== ENCOUNTER 2018-09-30 10:19 | Observation (INO) | payer MEDICAID ==
[2018-09-30 10:53] LABS: BILIRUBIN,URINE NEGATIVE (NEGATIVE); GLUCOSE, URINE (UA) NEGATIVE (NEGATIVE); KETONES,URINE (UA) NEGATIVE (NEGATIVE); LEUKOCYTE ESTERASE, URINE NEGATIVE (NEGATIVE); NITRITE,URINE NEGATIVE (NEGATIVE); OCCULT BLOOD,URINE NEGATIVE (NEGATIVE); PH,URINE 7.5 PH (5.0-7.5); PROTEIN,URINE NEGATIVE (NEGATIVE); UROBILINOGEN,URINE 0.2 (NORMAL) E.U./dL (NORMAL)
[2018-09-30 10:54] LABS: CLARITY,URINE CLEAR (CLEAR)
--- NOTE | 2018-09-30 11:06 | ED Physician Documentation ---
History of Present Illness - Stated complaint Stated Complaint: ABD PX LFT KNEE PX - Chief complaint Chief Complaint: General - History obtained from History obtained from: Patient - History of Present Illness Pain level max: 7 Pain level now: 5 - Additonal information Additional information: 32-year-old female presents to the emergency department with 2 issues, the first is right-sided abdominal pain for the past 3 days. Worse with movement, nothing makes it better. She also is having left knee pain for the past 3 weeks. States feels like it will buckle when she is going down stairs. Does not recall any specific injury. Has had problems with this knee in the past. Patient denies any dysuria, urinary frequency, vaginal bleeding or discharge. 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 : None HEENT: Chronic sinusitis Psych: None Musculoskeletal: None Derm: None - Past Surgical History Past Surgical History: Yes General: Appendectomy Ortho: Other /ASSEMBLY INSPECTOR HELPER: section, Tubal ligation, Hysterectomy, Other HEENT: Tonsil/Adenoidectomy - Present Medications Home Medications: Ambulatory Orders Medication Instructions Recorded Confirmed Sucralfate 1 gm PO AC #30 tablet 11/14/16 07/04/17 EPINEPHrine [Epinephrine] 0.3 mg IJ ONCE PRN #1 auto.injct 10/27/17 Metronidazole [Flagyl] 500 mg PO BID #14 tablet 10/27/17 Ondansetron Odt [Zofran] 4 mg TL Q6H PRN #30 tablet 10/27/17 Oxycodone HCl/Acetaminophen 1 each PO Q6H PRN #20 tablet 10/27/17 [Percocet 5-325 mg Tablet] diphenhydrAMINE [Benadryl] 25 mg PO Q4-6H PRN #30 capsule 10/27/17 raNITIdine [Zantac] 150 mg PO BID 10/27/17 10/27/17 Clindamycin [Cleocin] 300 mg PO Q6H 10 Days capsule 11/24/17 Oxycodone HCl/Acetaminophen 1 - 2 tab PO Q4H PRN #15 tablet 11/24/17 [Percocet 5-325 mg Tablet] Sulfamethoxazole/Trimethoprim 1 each PO BID #10 tablet 01/13/18 [Sulfamethoxazole-Tmp Ds Tablet] hydrOXYzine PAMOATE [Vistaril] 25 mg PO Q6H PRN #20 capsule 01/13/18 EPINEPHrine [Epipen 2-Kolby] 0.3 mg IJ ONCE PRN #1 unit 03/23/18 - Allergies Allergies/Adverse Reactions: Allergies Allergy/AdvReac Type Severity Reaction Status Date / Time aspirin Allergy Severe Anaphylaxis Verified 03/23/18 10:17 gelatin Allergy Severe Respiratory Verified 03/23/18 10:17 hydromorphone HCl * Allergy Severe Hives Verified 03/23/18 10:17 [From Dilaudid] morphine Allergy Severe Hives Verified 03/23/18 10:17 nitrofurantoin Allergy Severe Respiratory Verified 03/23/18 10:17 macrocrystalline * [From Macrobid] acetaminophen [From Ofirmev] Allergy Hives Verified 03/23/18 10:17 amoxicillin Allergy Anaphylaxis Verified 03/23/18 10:17 Beef Containing Products Allergy Anaphylaxis Verified 03/23/18 10:17 cinnamon Allergy Unknown Verified 03/23/18 10:17 famotidine [From Pepcid] Allergy Anaphylaxis Verified 03/23/18 10:17 fentanyl Allergy Unknown Verified 03/23/18 10:17 fluconazole Allergy Hives Verified 03/23/18 10:17 meperidine HCl * Allergy Anaphylaxis Verified 03/23/18 10:17 [From Demerol] Penicillins Allergy Anaphylaxis Verified 03/23/18 10:17 prednisone Allergy Anaphylaxis Verified 03/23/18 10:17 tamsulosin HCl * Allergy Unknown Verified 03/23/18 10:17 [From Flomax] wheat Allergy Hives Verified 03/23/18 10:17 hydrocodone [Hydrocodone] AdvReac Severe Emesis Verified 03/23/18 10:17 butorphanol AdvReac Intermediate Anxiety Verified 03/23/18 10:17 adhesive AdvReac Rash Verified 03/23/18 10:17 fexofenadine AdvReac Edema Verified 03/23/18 10:17 NSAIDS (Non-Steroidal AdvReac Cramps Verified 03/23/18 10:17 Anti-Inflamma paprika AdvReac Anaphylaxis Verified 03/23/18 10:17 - Social History Does the pt smoke?: No Smoking Status: Never smoker Does the pt drink ETOH?: No Does the pt have substance abuse?: No - Immunizations Immunizations are current?: Yes - POLST Patient has POLST: No PD ED PE NORMAL - Vitals Vital signs reviewed: Yes - General General: Alert and oriented X 3, No acute distress, Well developed/nourished - HEENT HEENT: PERRL, Moist mucous membranes - Neck Neck: Supple, no meningeal sign - Cardiac Cardiac: RRR, Strong equal pulses - Respiratory Respiratory: No respiratory distress, Clear bilaterally - Abdomen Abdomen: Soft, Non distended, Other (Tender to palpation right upper quadrant and right flank. Positive Bernal's.) - Back Back: No spinal TTP, Other (Mild right CVA tenderness) - Derm Derm: Warm and dry, No rash - Extremities Extremities: No edema, No calf tenderness / cord, Other (Left knee - Mild MCL laxity. LCL, ACL, PCL are intact. Normal meniscus testing. Neurovascular intact) - Neuro Neuro: Alert and oriented X 3 - Psych Psych: Normal mood, Normal affect Results - Vitals Vitals: Vital Signs - 24 hr 09/30/18 09/30/18 09/30/18 10:35 11:50 16:00 Temperature 36.1 C L 36.2 C L 36.3 C L Heart Rate 87 88 89 Respiratory 18 16 16 Rate Blood Pressure 104/66 94/72 109/82 H O2 Saturation 100 98 98 Oxygen O2 Source Room air - Labs Labs: Laboratory Tests 09/30/18 09/30/18 09/30/18 10:42 13:57 13:57 WBC 7.4 RBC 4.70 Hgb 13.8 Hct 41.6 MCV 88.6 MCH 29.3 MCHC 33.1 RDW 13.1 Plt Count 280 MPV 10.2 Neut # (Auto) 4.6 Lymph # (Auto) 1.9 [place] # (Auto) 0.5 Eos # (Auto) 0.4 Baso # (Auto) 0.1 Absolute Nucleated RBC 0.00 Nucleated RBC % 0.0 Sodium 137 Potassium 3.7 Chloride 104 Carbon Dioxide 24 Anion Gap 9.0 BUN 9 Creatinine 0.6 Estimated GFR (MDRD) 116 Glucose 97 Calcium 8.7 Total Bilirubin 0.8 AST 18 ALT 17 Alkaline Phosphatase 43 Total Protein 7.7 Albumin 4.3 Globulin 3.4 Albumin/Globulin Ratio 1.3 Lipase 43 Urine Color YELLOW Urine Clarity CLEAR Urine pH 7.5 Ur Specific [place] 1.020 Urine Protein NEGATIVE Urine Glucose (UA) NEGATIVE Urine Ketones NEGATIVE Urine Occult Blood NEGATIVE Urine Nitrite NEGATIVE Urine Bilirubin NEGATIVE Urine Urobilinogen 0.2 (NORMAL) Ur Leukocyte Esterase NEGATIVE Ur Microscopic Review NOT INDICATED Urine Culture Comments NOT INDICATED - Rads (name of study) Left knee x-ray Radiology: Prelim report reviewed, EMP read contemporaneously, See rad report (Normal knee radiography. ) Right upper quadrant ultrasound Radiology: Prelim report reviewed, EMP read contemporaneously, See rad report (Cholelithiasis with multiple small stones in the gallbladder neck area and a positive sonographic Bernal's sign. This possibly due to small calculi within the cystic duct. ) PD MEDICAL DECISION MAKING - ED course Complexity details: reviewed results, re-evaluated patient, considered differential, d/w patient, d/w farm consultant (Dr. Floyd at 1500) ED course: 32-year-old female presents the emergency department with 2 issues, the first appears to be left knee sprain ongoing for the past several weeks. No acute findings on x-ray. Patient also has right upper quadrant abdominal pain that appears to be related to likely biliary colic, possible early cholecystitis and obstruction. Having continuous pain in the emergency department, therefore contacted Dr. Floyd, general surgery agronomy supervisor who will come and evaluate the patient. Patient will be signed out to Dr. Mo awaiting final disposition. See his note for final disposition. This document was made in part using voice recognition software. While efforts are made to proofread this document, sound alike and grammatical errors may occur. Departure - Departure Clinical Impression: Biliary colic Left knee sprain Qualifiers: Encounter type: initial encounter Involved ligament of knee: unspecified ligament Qualified Code(s): S83.92XA - Sprain of unspecified site of left knee, initial encounter Condition: Good
--- NOTE | 2018-09-30 11:33 | XRAY Report ---
Reason: L knee pain Procedure Date: 09/30/2018 Accession Number: [id number] / [id number] Procedure: XR - Knee 4 View LT CPT Code: FULL RESULT: EXAM: LEFT KNEE RADIOGRAPHY EXAM DATE: 09/30/2018 11:23 AM. CLINICAL HISTORY: L knee pain. COMPARISON: KNEE 4 VIEW LT 05/08/2018 1:57 PM. TECHNIQUE: 4 views. FINDINGS: Bones: Normal. No fractures or bone lesions. Joints: Normal. No effusion. No subluxations. Soft Tissues: Normal. No soft tissue swelling. IMPRESSION: Normal knee radiography. RADIA
[2018-09-30] MEDS ORDERED: ONDANSETRON 4 MG/2 ML VIAL IVP STA ×2 (12:25→15:45)
--- NOTE | 2018-09-30 12:55 | Ultrasound Report ---
Reason: RUQ abd pain Procedure Date: 09/30/2018 Accession Number: [id number] / [id number] Procedure: US - Abdomen Limited CPT Code: FULL RESULT: EXAM: ABDOMEN ULTRASOUND LIMITED, RUQ EXAM DATE: 09/30/2018 11:52 AM. CLINICAL HISTORY: Right upper quadrant abdominal pain. COMPARISON: None. TECHNIQUE: Real-time scanning was performed with static images obtained. FINDINGS: Liver: Normal in size and echotexture. Right lobe measures at least 16.5 cm. Main portal vein flow: Hepatopetal. Gallbladder: Gallbladder is not distended but does contain multiple small calculi not all of which are definitely demonstrated to be mobile. The sonographic Bernal's sign is positive. There is no pericholecystic fluid, no wall thickening. There is the suggestion of small calculi within the cystic duct itself. Biliary System: CBD measures 4 mm. No intrahepatic or extrahepatic ductal dilatation. Other: None. IMPRESSION: Cholelithiasis with multiple small stones in the gallbladder neck area and a positive sonographic Bernal's sign. This possibly due to small calculi within the cystic duct. Please correlate these findings to the onset of symptoms. While the sonographic Bernal's sign is considered the most reliable ultrasound finding, absence of distention of the gallbladder as well as absence of inflammatory changes in and around the gallbladder wall make obstructive cholecystitis substantially less likely compared to biliary colic due to calculi in transit unless this is an early presentation of obstructive cholecystitis. ADRIANE The call report notification system was initiated by Dr. Pedrito Walsh at 12:54 PM on 09/30/2018. The above call report findings were discussed with Hermes Mccabe by Dr. Pedrito Walsh at 12:57 PM on 09/30/2018.
[2018-09-30 14:05] LABS: BASOPHILS # (AUTO) 0.1 10^3/uL (0.0-0.1); BASOPHILS % (AUTO) 1.3 %; EOSINOPHILS # (AUTO) 0.4 10^3/uL (0.0-0.7); EOSINOPHILS % (AUTO) 5.1 %; HGB - HEMOGLOBIN 13.8 g/dL (12.0-16.0); LYMPHOCYTES # (AUTO) 1.9 10^3/uL (1.5-3.5); LYMPHOCYTES % (AUTO) 25.2 %; MEAN CORPUSCULAR HEMOGLOBIN 29.3 pg (27.0-31.0); MEAN CORPUSCULAR HGB CONC 33.1 g/dL (32.0-36.0); MEAN CORPUSCULAR VOLUME 88.6 fL (81.0-99.0); MEAN PLATELET VOLUME 10.2 fL (7.9-10.8); MONOCYTES # (AUTO) 0.5 10^3/uL (0.0-1.0); MONOCYTES % (AUTO) 7.1 %; NEUTROPHILS # (AUTO) 4.6 10^3/uL (1.5-6.6); NEUTROPHILS % (AUTO) 61.3 %; PLT - PLATELET COUNT 280 10^3/uL (130-450); RED CELL DISTRIBUTION WIDTH 13.1 % (12.0-15.0); WHITE BLOOD COUNT 7.4 x10^3/uL (4.8-10.8)
[2018-09-30] MEDS ORDERED: diphenhydrAMINE INJ 50 MG/ML VIAL IVP STA (14:11)
[2018-09-30] MEDS ORDERED: SODIUM CHLORIDE 0.9% 1,000 ML IV ONE (14:15)
[2018-09-30 14:18] LABS: ALBUMIN 4.3 g/dL (3.2-5.5); ALBUMIN/GLOBULIN RATIO 1.3 (1.0-2.2); BILIRUBIN,TOTAL 0.8 mg/dL (0.2-1.0); CALCIUM 8.7 mg/dL (8.5-10.3); CREATININE 0.6 mg/dL (0.4-1.0); TOTAL PROTEIN 7.7 g/dL (6.7-8.2)
[2018-09-30] MEDS ORDERED: oxyCODONE 5 MG TABLET PO STA (15:00)
[2018-09-30] MEDS ORDERED: diphenhydrAMINE INJ 50 MG/ML VIAL IM STA (15:04)
--- NOTE | 2018-09-30 16:39 | ANESTHESIA PROCEDURE NOTE ---
Height and Weight: Height 4 ft 10 in Weight (kg) 58.967 kg Body Mass Index 27.1 Vital Signs: Temp Pulse Resp BP Pulse Ox 36.3 C L 89 16 109/82 H 98 09/30/18 16:00 09/30/18 16:00 09/30/18 16:00 09/30/18 16:00 09/30/18 16:00 Allergies aspirin Allergy (Severe, Verified 03/23/18 10:17) Anaphylaxis gelatin Allergy (Severe, Verified 03/23/18 10:17) Respiratory INPATIENT ON 06/23/15 PT HAD JELLO AND 20 MIN LATER HER THROAT WAS ITCHY, SORE, AND PT STATED SHE FELT LIKE IT WAS HARDER TO BREATHE. hydromorphone HCl * [From Dilaudid] Allergy (Severe, Verified 03/23/18 10:17) Hives morphine Allergy (Severe, Verified 03/23/18 10:17) Hives nitrofurantoin macrocrystalline * [From Macrobid] Allergy (Severe, Verified 03/23/18 10:17) Respiratory acetaminophen [From Ofirmev] Allergy (Verified 03/23/18 10:17) Hives amoxicillin Allergy (Verified 03/23/18 10:17) Anaphylaxis Beef Containing Products Allergy (Verified 03/23/18 10:17) Anaphylaxis cinnamon Allergy (Verified 03/23/18 10:17) Unknown famotidine [From Pepcid] Allergy (Verified 03/23/18 10:17) Anaphylaxis fentanyl Allergy (Verified 03/23/18 10:17) Unknown fluconazole Allergy (Verified 03/23/18 10:17) Hives meperidine HCl * [From Demerol] Allergy (Verified 03/23/18 10:17) Anaphylaxis Penicillins Allergy (Verified 03/23/18 10:17) Anaphylaxis prednisone Allergy (Verified 03/23/18 10:17) Anaphylaxis tamsulosin HCl * [From Flomax] Allergy (Verified 03/23/18 10:17) Unknown wheat Allergy (Verified 03/23/18 10:17) Hives hydrocodone [Hydrocodone] Adverse Reaction (Severe, Verified 03/23/18 10:17) Emesis butorphanol Adverse Reaction (Intermediate, Verified 03/23/18 10:17) Anxiety verify reaction to all allergies adhesive Adverse Reaction (Verified 03/23/18 10:17) Rash fexofenadine Adverse Reaction (Verified 03/23/18 10:17) Edema NSAIDS (Non-Steroidal Anti-Inflamma Adverse Reaction (Verified 03/23/18 10:17) Cramps paprika Adverse Reaction (Verified 03/23/18 10:17) Anaphylaxis Procedure Notes: Called for difficult IV placement. #22G IV started to right hand x1 attempt. Patient tolerated well.
[2018-09-30] MEDS ORDERED: ceFAZolin 2 GM/50 ML 2 GM/50 ML BAG IV ONE (18:21)
[2018-09-30] MEDS ORDERED: oxyCODONE 5 MG TABLET PO PRN (18:21)
--- NOTE | 2018-09-30 18:39 | CONSULTATION NOTE ---
Referring Provider Name of Referring Provider:: Dr. Mccabe Consult Date: 09/30/18 Chief Complaint - Chief Complaint Chief Complaint: RUQ pain History of Present Illness - Admitted From Admitted From:: ER - History Obtained From Records Reviewed: yes History obtained from: pt, records Exam Limitations: none - History of Present Illness HPI Comment/Other: 32 yo female with 3 days of constant dull aching progressively worsening RUQ pain associated with N/V but no fever/chills. Sx worse after meals, especially fatty food. No prior similar sx. She does report chronic epigastric pain for which she is taking daily omeprazole and ranitidine. She has a hx of surgery for a perforated ulcer approx 7 yrs ago. Details are unavailable at present. She states the surgery was done here but i am unable to locate nay records to correspond to this procedure. She has had several EGDs for epigastric pain over the past 5 years with findings of GERD and reflux esophagitis on biopsies. She avoids NSAIDs, alcohol and tobacco. No recent wt changes, no melena, hematochezi a, jaundice, acholic stools. FH gallbladder disease in both parents; neg FH GI tumors. Stools have been loose past few days but no yuki diarrhea. Evaluation in the ER included nl CBC, CMP, lipase and abd US showing multiple small stones in a contracted gallbladder; nl bile ducts, no pericholecystic fluid, questionably positive sonographic Bernal's sign. Surgical consultation was requested. History - Past Medical History Cardiovascular: reports: Other Respiratory: reports: Other (pneumonia several years ago) Endocrine/Autoimmune: reports: None GI: reports: Ulcers (a) BOTTLE HOP: reports: 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 : reports: None HEENT: reports: Chronic sinusitis Psych: reports: None Musculoskeletal: reports: None Derm: reports: None MRSA Hx?: Yes - Past Surgical History General: reports: Appendectomy, Gastric surgery (surgery for perforated ulcer) Ortho: reports: Other /BOTTLE HOP: reports: section (x 4), Tubal ligation, Hysterectomy (with retention of left ovary), Other (multiple laparoscopies for endometriosis) HEENT: reports: Tonsil/Adenoidectomy - Family & Social History Family History Comment/Other: neg for GI tumors Living arrangement: At home Living Situation: With family - Substance History Use: Uses substance without health or social issues: NONE - POLST Patient has POLST: No POLST Status: Full Code Meds/Allgy - Home Medications Home Medications: Ambulatory Orders Medication Instructions Recorded Confirmed diphenhydrAMINE [Benadryl] 25 mg PO Q4-6H PRN #30 capsule 10/27/17 raNITIdine [Zantac] 150 mg PO BID 10/27/17 10/27/17 EPINEPHrine [Epipen 2-[place]] 0.3 mg IJ ONCE PRN #1 unit 03/23/18 Omeprazole 20 mg PO 09/30/18 - Allergies Allergies/Adverse Reactions: Allergies Allergy/AdvReac Type Severity Reaction Status Date / Time aspirin Allergy Severe Anaphylaxis Verified 03/23/18 10:17 gelatin Allergy Severe Respiratory Verified 03/23/18 10:17 hydromorphone HCl * Allergy Severe Hives Verified 03/23/18 10:17 [From Dilaudid] morphine Allergy Severe Hives Verified 03/23/18 10:17 nitrofurantoin Allergy Severe Respiratory Verified 03/23/18 10:17 macrocrystalline * [From Macrobid] acetaminophen [From Ofirmev] Allergy Hives Verified 03/23/18 10:17 amoxicillin Allergy Anaphylaxis Verified 03/23/18 10:17 Beef Containing Products Allergy Anaphylaxis Verified 03/23/18 10:17 cinnamon Allergy Unknown Verified 03/23/18 10:17 famotidine [From Pepcid] Allergy Anaphylaxis Verified 03/23/18 10:17 fentanyl Allergy Unknown Verified 03/23/18 10:17 fluconazole Allergy Hives Verified 03/23/18 10:17 meperidine HCl * Allergy Anaphylaxis Verified 03/23/18 10:17 [From Demerol] Penicillins Allergy Anaphylaxis Verified 03/23/18 10:17 prednisone Allergy Anaphylaxis Verified 03/23/18 10:17 tamsulosin HCl * Allergy Unknown Verified 03/23/18 10:17 [From Flomax] wheat Allergy Hives Verified 03/23/18 10:17 hydrocodone [Hydrocodone] AdvReac Severe Emesis Verified 03/23/18 10:17 butorphanol AdvReac Intermediate Anxiety Verified 03/23/18 10:17 adhesive AdvReac Rash Verified 03/23/18 10:17 fexofenadine AdvReac Edema Verified 03/23/18 10:17 NSAIDS (Non-Steroidal AdvReac Cramps Verified 03/23/18 10:17 Anti-Inflamma paprika AdvReac Anaphylaxis Verified 03/23/18 10:17 Review of Systems - Constitutional Constitutional: reports: Poor appetite. denies: Fever, Chills, Weight gain, Weight loss - Gastrointestinal Gastrointestinal: reports: Abdominal pain, Change in bowel habits, Nausea, Vomiting, Reflux/heartburn. denies: Diarrhea, Rectal bleeding, Black stools, Bloody stools, Coffee grounds emesis - Hematologic/Lymphatic Hematologic/Lymphatic: denies: Blood clots, Bleeding tendencies - All Other Systems All Other Systems: reports: Reviewed and negative Exam - Vital Signs Reviewed Vital Signs: Yes Vital Signs: Vital Signs x48h Temp Pulse Resp BP Pulse Ox 09/30/18 18:10 36.7 C 91 18 100/75 99 09/30/18 16:00 36.3 C L 89 16 109/82 H 98 09/30/18 11:50 36.2 C L 88 16 94/72 98 09/30/18 10:35 36.1 C L 87 18 104/66 100 - Physical Exam General Appearance: positive: Moderate distress (c/o abd pain) Eyes Bilateral: positive: Normal inspection, Conjunctivae nml, No scleral icterus ENT: positive: ENT inspection nml, Pharynx nml, No signs of dehydration Neck: positive: Nml inspection, Thyroid nml, No JVD, Trachea midline. negative: Thyromegaly, Lymphadenopathy (R), Lymphadenopathy (L) Respiratory: positive: Chest non-tender, No respiratory distress, Breath sounds nml. negative: Wheezes, Rales, Rhonchi Cardiovascular: positive: Regular rate & rhythm, No murmur, No gallop Abdomen: positive: Nml bowel sounds, No distention, Tenderness (RUQ with guarding/rebound; no generalized peritoneal signs), Guarding, Rebound, Other (multiple surgical scars including upper midline, pfannensteil, multiple laparo scopy scars). negative: Hepatomegaly, Splenomegaly, Mass Back: positive: CVA tenderness (R). negative: CVA tenderness (L) Skin: positive: Color nml, No rash, Warm, Dry. negative: Cyanosis Extremities: positive: No pedal edema. negative: Calf tenderness Neurologic/Psychiatric: positive: Oriented x3 Conclusion/Plan - Diagnosis Diagnosis: RUQ pain: ddx includes sx gallbladder disease (subacute calculous cholecystitis, biliary colic, choledocholithiasis), recurrent PUD, gastritis, H. pylori, or some combination of the above. - Plan Plan: admit for observation, pain control, IVF. Plan EGD in am; if unable to identify cause of pain at EGD, proceed with lap marta. PAR conf with pt, including risks of bleeding, infection, bile duct injury, need to convert to open procedure, and consent obtained. - Lab Results Fish Bones: 09/30/18 13:57 09/30/18 13:57 Other Lab Results: lfts, lipase, UA neg - Diagnostic Imaging Results Diagnostic Imaging Results: positive: Final report reviewed Diagnostic Imaging Results Comments: See HPI
[2018-09-30] MEDS: LACTATED RINGERS 1,000 ML IV SCH (19:38)
[2018-09-30] MEDS: ONDANSETRON 4 MG/2 ML VIAL IVP PRN (19:41)
[2018-09-30] MEDS: diphenhydrAMINE 25 MG CAPSULE PO PRN (19:41)
[2018-09-30 19:47] LABS: HCG UR QUAL NEGATIVE
[2018-09-30] MEDS: oxyCODONE 5 MG TABLET PO PRN (21:52)
[2018-09-30] MEDS: PANTOPRAZOLE 40 MG VIAL IVP SCH (21:52)
[2018-10-01] MEDS: SODIUM CHLORIDE FLUSH 0.9% 10 ML SYRINGE IVP SCH ×3 (01:35→19:37)
[2018-10-01] MEDS: diphenhydrAMINE 25 MG CAPSULE PO PRN ×3 (01:35→21:02)
[2018-10-01] MEDS: ONDANSETRON 4 MG/2 ML VIAL IVP PRN ×3 (01:35→19:37)
[2018-10-01] MEDS: oxyCODONE 5 MG TABLET PO PRN ×5 (02:16→21:02)
[2018-10-01] MEDS ORDERED: ceFAZolin 2 GM/50 ML 2 GM/50 ML BAG IV SCH (05:00)
[2018-10-01 05:42] LABS: BASOPHILS # (AUTO) 0.1 10^3/uL (0.0-0.1); BASOPHILS % (AUTO) 1.4 %; EOSINOPHILS # (AUTO) 0.3 10^3/uL (0.0-0.7); EOSINOPHILS % (AUTO) 4.2 %; HGB - HEMOGLOBIN 13.3 g/dL (12.0-16.0); LYMPHOCYTES # (AUTO) 1.2 10^3/uL (1.5-3.5); LYMPHOCYTES % (AUTO) 19.8 %; MEAN CORPUSCULAR HEMOGLOBIN 29.7 pg (27.0-31.0); MEAN CORPUSCULAR HGB CONC 33.1 g/dL (32.0-36.0); MEAN CORPUSCULAR VOLUME 89.7 fL (81.0-99.0); MONOCYTES # (AUTO) 0.5 10^3/uL (0.0-1.0); MONOCYTES % (AUTO) 7.4 %; NEUTROPHILS # (AUTO) 4.2 10^3/uL (1.5-6.6); NEUTROPHILS % (AUTO) 67.2 %; PLT - PLATELET COUNT 234 10^3/uL (130-450); RED BLOOD COUNT 4.47 10^6/uL (4.20-5.40); RED CELL DISTRIBUTION WIDTH 13.3 % (12.0-15.0); WHITE BLOOD COUNT 6.2 x10^3/uL (4.8-10.8)
[2018-10-01 05:48] LABS: ALBUMIN 3.9 g/dL (3.2-5.5); ALBUMIN/GLOBULIN RATIO 1.3 (1.0-2.2); BILIRUBIN,TOTAL 0.8 mg/dL (0.2-1.0); CALCIUM 8.8 mg/dL (8.5-10.3); CREATININE 0.9 mg/dL (0.4-1.0); TOTAL PROTEIN 6.9 g/dL (6.7-8.2)
[2018-10-01] MEDS: LACTATED RINGERS 1,000 ML IV SCH ×2 (06:31→19:07)
--- NOTE | 2018-10-01 07:16 | PROVIDER PROGRESS NOTE ---
Assessment/Plan - Problem List (1) Right upper quadrant abdominal pain Assessment/Plan: ddx includes sx gallbladder disease (subacute calculous cholecystitis, biliary colic, choledocholithiasis), PUD, gastritis, H. pylori. Plan: EGD; if neg, proceed with lap marta. Discussed with pt who agrees. (2) Cholelithiasis and acute cholecystitis without obstruction Assessment/Plan: likely cause of pain. Plan as above for RUQ pain. - Current Meds Current Meds: Current Medications Generic Name Dose Route Start Last Admin Trade Name Freq PRN Reason Stop Dose Admin Diphenhydramine HCl 25 mg 09/30/18 18:21 10/01/18 01:35 Benadryl PO 25 mg Q6H PRN Administration ITCHING Lactated Ringer's 1,000 mls @ 100 mls/hr 09/30/18 19:00 10/01/18 06:31 Lr IV 100 mls/hr .Q10H SAMANTA Administration Ondansetron HCl 4 mg 09/30/18 18:21 10/01/18 01:35 Zofran Inj IVP 4 mg Q6H PRN Administration Nausea / Vomiting Oxycodone HCl 5 - 10 mg 09/30/18 20:24 10/01/18 04:36 Roxicodone PO 5 mg Q4HR PRN Administration PAIN Pantoprazole Sodium 40 mg 09/30/18 20:23 09/30/18 21:52 Protonix IVP 40 mg DAILY SAMANTA Administration Sodium Chloride 10 ml 10/01/18 01:00 10/01/18 01:35 Normal Saline Flush 0.9% IVP 10 ml 0100,0900,1700 SAMANTA Administration - Lab Result Lab results reviewed: Yes Fish Bone Diagrams: 10/01/18 04:45 10/01/18 04:45 Other Lab Results: Lft's nl; urine preg test neg; nasal swab neg for MRSA. - Additional Planning Condition/Complexity: Stable My Orders: My Active Orders 09/30/18 18:21 Activity Orders [RC] Q2HR IO [RC] IOSHIFT IV Line/Site Care [RC] QSHIFT Preop Surgical Checklist [RC] Routine Vital Signs [RC] Q4HR Ondansetron Inj [Zofran Inj] 4 mg IVP Q6H PRN Sodium Chloride Flush 0.9% [Normal Saline Flush 0.9%] 10 ml IVP PRN PRN diphenhydrAMINE [Benadryl] 25 mg PO Q6H PRN Code Status [OTHERS] Routine Condition of Patient [OTHERS] Routine DVT Prophylaxis [OTHERS] Routine 09/30/18 18:23 NPO except Meds at Midnight [DIET] 09/30/18 18:24 SCDs [RC] QSHIFT 09/30/18 19:00 Lactated Ringers [Lr] 1,000 ml IV 100 mls/hr 09/30/18 20:23 Pantoprazole [Protonix] 40 mg IVP DAILY 09/30/18 20:24 oxyCODONE [Roxicodone] 5 - 10 mg PO Q4HR PRN 10/01/18 01:00 Sodium Chloride Flush 0.9% [Normal Saline Flush 0.9%] 10 ml IVP 0100,0900,1700 10/01/18 05:00 ceFAZolin 2 GM/50 ML [Ancef 2 gm/50 ml] 2 gm in 50 ml IV ONCE 10/02/18 05:00 LIPASE [CHEM] DAILYLAB Plan Discussed with:: Patient Time Spent: 15-30 minutes Subjective - Subjective Patient Reports: Abdominal Pain (pain persists in RUQ, slightly improved but still 7/10 despite oxycodone; noted n/v with oxycodone but no hives,), Nausea Objective Vital Signs: Vital Signs - 24 hr 09/30/18 09/30/18 09/30/18 10:35 11:50 16:00 Temperature 36.1 C L 36.2 C L 36.3 C L Heart Rate 87 88 89 Heart Rate [ Brachial] Respiratory 18 16 16 Rate Blood Pressure 104/66 94/72 109/82 H Blood Pressure [Left Brachial artery] O2 Saturation 100 98 98 09/30/18 09/30/18 09/30/18 18:10 19:26 21:36 Temperature 36.7 C 36.5 C 36.3 C L Heart Rate 91 Heart Rate [ 87 87 Brachial] Respiratory 18 18 18 Rate Blood Pressure 100/75 Blood Pressure 108/70 99/67 [Left Brachial artery] O2 Saturation 99 99 96 10/01/18 10/01/18 00:06 04:37 Temperature 36.2 C L 36.5 C Heart Rate Heart Rate [ 85 90 Brachial] Respiratory 18 18 Rate Blood Pressure Blood Pressure 91/66 100/52 L [Left Brachial artery] O2 Saturation 97 100 Oxygen O2 Source Room air I&O (Last 24 Hrs): Intake and Output Totals x24h 09/29/18 09/30/18 10/01/18 23:59 23:59 23:59 Intake Total 267.5 940 Balance 267.5 940 General: Alert, Oriented x3, Cooperative, Mild distress Neuro: Alert Abdomen: No hepatospenomegaly, No masses, Other (RUQ tenderness with voluntary guarding; no generalized peritoneal signs) Extremities: No edema, No tenderness/swelling - Results Results: Laboratory Results WBC 6.2 x10^3/uL (4.8-10.8) 10/01/18 04:45 RBC 4.47 10^6/uL (4.20-5.40) 10/01/18 04:45 Hgb 13.3 g/dL (12.0-16.0) 10/01/18 04:45 Hct 40.1 % (37.0-47.0) 10/01/18 04:45 MCV 89.7 fL (81.0-99.0) 10/01/18 04:45 MCH 29.7 pg (27.0-31.0) 10/01/18 04:45 MCHC 33.1 g/dL (32.0-36.0) 10/01/18 04:45 RDW 13.3 % (12.0-15.0) 10/01/18 04:45 Plt Count 234 10^3/uL (130-450) 10/01/18 04:45 MPV 10.0 fL (7.9-10.8) 10/01/18 04:45 Neut # (Auto) 4.2 10^3/uL (1.5-6.6) 10/01/18 04:45 Lymph # (Auto) 1.2 10^3/uL (1.5-3.5) L 10/01/18 04:45 [place] # (Auto) 0.5 10^3/uL (0.0-1.0) 10/01/18 04:45 Eos # (Auto) 0.3 10^3/uL (0.0-0.7) 10/01/18 04:45 Baso # (Auto) 0.1 10^3/uL (0.0-0.1) 10/01/18 04:45 Absolute Nucleated RBC 0.00 x10^3/uL 10/01/18 04:45 Nucleated RBC % 0.0 /100WBC 10/01/18 04:45 Sodium 140 mmol/L (135-145) 10/01/18 04:45 Potassium 3.6 mmol/L (3.5-5.0) 10/01/18 04:45 Chloride 107 mmol/L (101-111) 10/01/18 04:45 Carbon Dioxide 28 mmol/L (21-32) 10/01/18 04:45 Anion Gap 5.0 (6-13) L 10/01/18 04:45 BUN 9 mg/dL (6-20) 10/01/18 04:45 Creatinine 0.9 mg/dL (0.4-1.0) 10/01/18 04:45 Estimated GFR (MDRD) 73 (>89) L 10/01/18 04:45 Glucose 98 mg/dL (70-100) 10/01/18 04:45 Calcium 8.8 mg/dL (8.5-10.3) 10/01/18 04:45 Total Bilirubin 0.8 mg/dL (0.2-1.0) 10/01/18 04:45 AST 16 IU/L (10-42) 10/01/18 04:45 ALT 15 IU/L (10-60) 10/01/18 04:45 Alkaline Phosphatase 48 IU/L (42-121) 10/01/18 04:45 Total Protein 6.9 g/dL (6.7-8.2) 10/01/18 04:45 Albumin 3.9 g/dL (3.2-5.5) 10/01/18 04:45 Globulin 3.0 g/dL (2.1-4.2) 10/01/18 04:45 Albumin/Globulin Ratio 1.3 (1.0-2.2) 10/01/18 04:45 Lipase 43 U/L (22-51) 09/30/18 13:57 Urine Color YELLOW 09/30/18 10:42 Urine Clarity CLEAR (CLEAR) 09/30/18 10:42 Urine pH 7.5 PH (5.0-7.5) 09/30/18 10:42 Ur Specific [place] 1.020 (1.002-1.030) 09/30/18 10:42 Urine Protein NEGATIVE mg/dL (NEGATIVE) 09/30/18 10:42 Urine Glucose (UA) NEGATIVE mg/dL (NEGATIVE) 09/30/18 10:42 Urine Ketones NEGATIVE mg/dL (NEGATIVE) 09/30/18 10:42 Urine Occult Blood NEGATIVE (NEGATIVE) 09/30/18 10:42 Urine Nitrite NEGATIVE (NEGATIVE) 09/30/18 10:42 Urine Bilirubin NEGATIVE (NEGATIVE) 09/30/18 10:42 Urine Urobilinogen 0.2 (NORMAL) E.U./dL (NORMAL) 09/30/18 10:42 Ur Leukocyte Esterase NEGATIVE (NEGATIVE) 09/30/18 10:42 Ur Microscopic Review NOT INDICATED 09/30/18 10:42 Urine Culture Comments NOT INDICATED 09/30/18 10:42 Urine HCG, Qual NEGATIVE 09/30/18 10:42 Nasal Screen MRSA (PCR) NEGATIVE (NEGATIVE) 09/30/18 20:00 - Procedures Procedures: Procedures EXCISION OF DUODENUM, ENDO, DIAGN (02/21/17) EXCISION OF ESOPHAGUS, ENDO, DIAGN (02/21/17) INSERTION OF ENDOTRACHEAL AIRWAY INTO TRACHEA, VIA OPENING (03/06/16) LAPAROSCOP LYSIS-PERITONEAL ADHES (07/14/13) LAPAROSCOP LYSIS-PERIVESICAL ADHES (07/14/13) OTH METATARS/TARS INCIS (05/05/14) OTHER ENDOSCOPY OF SM INTEST (04/02/13) OTHER PLASTIC OPS TENDON (05/05/14) RELEASE PERITONEUM, PERCUTANEOUS ENDOSCOPIC APPROACH (03/06/16) REMOVAL IUD (11/04/12) RESPIRATORY VENTILATION, LESS THAN 24 CONSECUTIVE HOURS (03/06/16) ABX Reporting Has patient been on IV antibiotics over the past 48 hours?: No
[2018-10-01] MEDS: PANTOPRAZOLE 40 MG VIAL IVP SCH (08:13)
[2018-10-01] MEDS: SODIUM CHLORIDE FLUSH 0.9% 10 ML SYRINGE IVP PRN ×2 (08:20→12:01)
[2018-10-01] MEDS: KETOROLAC 30 MG/ML VIAL IVP PRN ×2 (12:00→19:20)
[2018-10-01] MEDS ORDERED: MIDAZOLAM 2 MG/2 ML VIAL IVP ONE (13:09)
[2018-10-01] MEDS ORDERED: ACETAMINOPHEN 1,000 MG/100 ML 100 ML IV ONE (13:09)
[2018-10-01] MEDS ORDERED: ePHEDrine 50 MG/ML VIAL IVP ONE (13:09)
[2018-10-01] MEDS ORDERED: LIDOCAINE-MPF 2% 5 ML VIAL TD ONE (13:09)
[2018-10-01] MEDS ORDERED: fentaNYL 250 MCG/5 ML VIAL IVP ONE (13:09)
[2018-10-01] MEDS ORDERED: diphenhydrAMINE INJ 50 MG/ML VIAL IVP ONE (13:09)
[2018-10-01] MEDS ORDERED: ceFAZolin 2 GM in SODIUM CHLORIDE 0.9% 100ML 100 ML IV ONE (13:09)
[2018-10-01] MEDS ORDERED: PROPOFOL 200 MG/20 ML VIAL IVP ONE (13:09)
[2018-10-01] MEDS ORDERED: ESMOLOL 100 MG/10 ML VIAL IVP ONE (13:09)
--- NOTE | 2018-10-01 13:36 | ANESTHESIA ---
Pre-Anesthesia VS, & Labs - Diagnosis Diagnosis RUQ pain: ddx includes sx gallbladder disease ( subacute calculous cholecystitis, biliary colic, choledocholithiasis), recurrent PUD, gastritis, H. pylori, or some combination of the above. - Procedure EGD, lap marta Vital Signs: Temp Pulse Resp BP Pulse Ox 37.0 C 78 16 87/47 L 98 10/01/18 12:37 10/01/18 12:37 10/01/18 12:37 10/01/18 12:37 10/01/18 12:37 Height 4 ft 10 in Weight (kg) 60.5 kg Body Mass Index 27.8 - NPO Other (sips water) - Is Patient ?: No - Lab Results Current Lab Results: Laboratory Tests 10/01/18 04:45: Sodium 140, Potassium 3.6, Chloride 107, Carbon Dioxide 28, Anion Gap 5.0 L, BUN 9, Creatinine 0.9, Estimated GFR (MDRD) 73 L, Glucose 98, Calcium 8.8, Total Bilirubin 0.8, AST 16, ALT 15, Alkaline Phosphatase 48, Total Protein 6.9, Albumin 3.9, Globulin 3.0, Albumin/Globulin Ratio 1.3 10/01/18 04:45: WBC 6.2, RBC 4.47, Hgb 13.3, Hct 40.1, MCV 89.7, MCH 29.7, MCHC 33.1, RDW 13.3, Plt Count 234, MPV 10.0, Neut # (Auto) 4.2, Lymph # (Auto) 1.2 L , [place] # (Auto) 0.5, Eos # (Auto) 0.3, Baso # (Auto) 0.1, Absolute Nucleated RBC 0.00, Nucleated RBC % 0.0 09/30/18 13:57: Sodium 137, Potassium 3.7, Chloride 104, Carbon Dioxide 24, Anion Gap 9.0, BUN 9, Creatinine 0.6, Estimated GFR (MDRD) 116, Glucose 97, Calcium 8.7, Total Bilirubin 0.8, AST 18, ALT 17, Alkaline Phosphatase 43, Total Protein 7.7, Albumin 4.3, Globulin 3.4, Albumin/Globulin Ratio 1.3, Lipase 43 09/30/18 13:57: WBC 7.4, RBC 4.70, Hgb 13.8, Hct 41.6, MCV 88.6, MCH 29.3, MCHC 33.1, RDW 13.1, Plt Count 280, MPV 10.2, Neut # (Auto) 4.6, Lymph # (Auto) 1.9, [place] # (Auto) 0.5, Eos # (Auto) 0.4, Baso # (Auto) 0.1, Absolute Nucleated RBC 0.00, Nucleated RBC % 0.0 Lab results reviewed: Yes Fish Bones: 10/01/18 04:45 10/01/18 04:45 Home Medications and Allergies Home Medications: Ambulatory Orders Omeprazole 20 mg PO 09/30/18 Active Medications Diphenhydramine HCl (Benadryl) 25 mg PO Q6H PRN PRN Reason: ITCHING Last Admin: 10/01/18 08:41 Dose: 25 mg Lactated Ringer's (Lr) 1,000 mls @ 100 mls/hr IV .Q10H [facility] Last Admin: 10/01/18 06:31 Dose: 100 mls/hr Ketorolac Tromethamine (Toradol Inj (30mg)) 30 mg IVP Q6HR PRN PRN Reason: PAIN Stop: 10/06/18 11:34 Last Admin: 10/01/18 12:00 Dose: 30 mg Ondansetron HCl (Zofran Inj) 4 mg IVP Q6H PRN PRN Reason: Nausea / Vomiting Last Admin: 10/01/18 08:19 Dose: 4 mg Oxycodone HCl (Roxicodone) 5 - 10 mg PO Q4HR PRN PRN Reason: PAIN Last Admin: 10/01/18 08:40 Dose: 10 mg Pantoprazole Sodium (Protonix) 40 mg IVP DAILY [facility] Last Admin: 10/01/18 08:13 Dose: 40 mg Sodium Chloride (Normal Saline Flush 0.9%) 10 ml IVP 0100,0900,1700 [facility] Last Admin: 10/01/18 08:14 Dose: 10 ml Sodium Chloride (Normal Saline Flush 0.9%) 10 ml IVP PRN PRN PRN Reason: NEEDED PER PROVIDER ORDERS Last Admin: 10/01/18 12:01 Dose: 10 ml raNITIdine [Zantac] 150 mg PO BID 10/27/17 Omeprazole 20 mg PO 09/30/18 Allergies/Adverse Reactions: Allergies Allergy/AdvReac Type Severity Reaction Status Date / Time aspirin Allergy Severe Anaphylaxis Verified 03/23/18 10:17 gelatin Allergy Severe Respiratory Verified 03/23/18 10:17 hydromorphone HCl * Allergy Severe Hives Verified 03/23/18 10:17 [From Dilaudid] morphine Allergy Severe Hives Verified 03/23/18 10:17 nitrofurantoin Allergy Severe Respiratory Verified 03/23/18 10:17 macrocrystalline * [From Macrobid] acetaminophen [From Ofirmev] Allergy Hives Verified 03/23/18 10:17 amoxicillin Allergy Anaphylaxis Verified 03/23/18 10:17 Beef Containing Products Allergy Anaphylaxis Verified 03/23/18 10:17 cinnamon Allergy Unknown Verified 03/23/18 10:17 famotidine [From Pepcid] Allergy Anaphylaxis Verified 03/23/18 10:17 fentanyl Allergy Unknown Verified 03/23/18 10:17 fluconazole Allergy Hives Verified 03/23/18 10:17 meperidine HCl * Allergy Anaphylaxis Verified 03/23/18 10:17 [From Demerol] Penicillins Allergy Anaphylaxis Verified 03/23/18 10:17 prednisone Allergy Anaphylaxis Verified 03/23/18 10:17 tamsulosin HCl * Allergy Unknown Verified 03/23/18 10:17 [From Flomax] wheat Allergy Hives Verified 03/23/18 10:17 hydrocodone [Hydrocodone] AdvReac Severe Emesis Verified 03/23/18 10:17 butorphanol AdvReac Intermediate Anxiety Verified 03/23/18 10:17 adhesive AdvReac Rash Verified 03/23/18 10:17 fexofenadine AdvReac Edema Verified 03/23/18 10:17 NSAIDS (Non-Steroidal AdvReac Cramps Verified 03/23/18 10:17 Anti-Inflamma paprika AdvReac Anaphylaxis Verified 03/23/18 10:17 Anes History & Medical History - Anesthetic History Anesthesia Complications: reports: No previous complications, Emergence delir ium, Other-see comment (See chart) Family history of Anesthesia Complications: Denies Family history of Malignant Hyperthermia: Denies - Medical History Cardiovascular: reports: None, Other Pulmonary: reports: None, Other Gastrointestinal: reports: Ulcers Urinary: reports: None Neuro: reports: Other (See chart) Musculoskeletal: reports: None Endocrine/Autoimmune: reports: None Blood Disorders: reports: None Skin: reports: None Smoking Status: Never smoker Psychosocial: reports: Anxiety Other Past Medical History: Chiaria Malformation Type 1 - Surgical History General: Appendectomy, Gastric surgery Eyes Ears Nose Throat (EENT): Tonsil/Adenoidectomy Gynecologic: section, Tubal ligation, Hysterectomy, Other Neurologic: Craniotomy Orthopedic: Other Exam General: Alert Dental: Other (many missing, no loose) Mouth Opening: Greater than 4 Fingerbreadths Neck Mobility: Normal Mallampati classification: I Thyromental Distance: greater than 6 cm Respiratory: Lungs clear Cardiovascular: Regular rate Neurological: Normal speech Mental/Cognitive Status: Alert/Oriented X3 Cognitive Status: Within normal limits Plan Anesthesia Type: General Consent for Procedure(s) Verified and Reviewed: Yes Code Status: Attempt Resuscitation ASA classification: 3-Severe systemic disease Is this case an emergency?: No
[2018-10-01] MEDS ORDERED: BUPIVACAINE 0.5%-EPI 1:200000 PF 30 ML VIAL ONE (14:10)
[2018-10-01] MEDS ORDERED: LACTATED RINGERS 300 ML IV ONE (15:15)
[2018-10-01] MEDS ORDERED: BUPIVACAINE 0.5%-EPI 1:200000 PF 10 ML VIAL SUBQ ONE (16:33)
[2018-10-01] MEDS ORDERED: LACTATED RINGERS 1,000 ML IV ONE ×3 (16:34→17:00)
[2018-10-01] MEDS ORDERED: SODIUM CHLORIDE FLUSH 0.9% 10 ML SYRINGE IVP PRN (18:20)
[2018-10-01] MEDS ORDERED: LACTATED RINGERS 1,000 ML IV SCH (18:26)
[2018-10-01] MEDS ORDERED: PANTOPRAZOLE 40 MG VIAL IVP SCH (18:33)
--- NOTE | 2018-10-01 18:51 | OPERATIVE REPORT ---
Operative Report - General Admit Date: 09/30/18 Procedure Date: 10/01/18 Planned Procedure: EGD, possible Lap cholecystectomy Pre-Op Diagnosis: RUQ pain, cholelithiasis, cholecystitis Procedure Performed: EGD with biopsies Laparoscopic cholecystectomy Post Op Diagnosis: Antral gastritis; chronic calculous cholecystitis - Procedure Note Primary Surgeon: Gunnar Floyd MD [facility] Anesthesia Provider: Diego Davis CRNA Anesthesia Technique: General ET tube Pathology: gallbladder and contents biopsies of antrum and duodenum Estimated Blood Loss (mL): 25 Complications: None
[2018-10-01] MEDS ORDERED: ONDANSETRON 4 MG/2 ML VIAL ONE (18:58)
--- NOTE | 2018-10-01 19:03 | OPERATIVE REPORT ---
DATE OF SERVICE: 10/01/2018 Physician: Gunnar Floyd MD PREOPERATIVE DIAGNOSIS: Subacute calculous cholecystitis. POSTOPERATIVE DIAGNOSIS: Chronic calculous cholecystitis. PROCEDURE PERFORMED: Laparoscopic cholecystectomy. ANESTHESIA: General endotracheal by Diego Davis CRNA. BASE MANAGER: Gunnar Floyd MD ESTIMATED BLOOD LOSS: 25 mL. COMPLICATIONS: None. FINDINGS: Extensive upper abdominal adhesions were present including from the colon to the anterior abdominal wall, the stomach to the anterior abdominal wall, and the liver to the anterior abdominal w all. The gallbladder was seen to be nondistended, thin walled. Cystic duct was of normal caliber. Following resection, the gallbladder was seen to contain sludge and tiny, yellow, mixed cholesterol-t ype polyps and/or stones associated with what appears to be cholesterolosis of the gallbladder. Othe rwise, the visualized portions of the liver, stomach, small and large bowels were within normal limit s. INDICATIONS: Patient is a 32-year-old woman with a 3-day history of severe right upper quadrant pain , nausea, and vomiting. Evaluation included ultrasonography, showing multiple small stones within th e gallbladder, normal bile ducts, normal liver function tests and lipase, and normal white count. Sh e was felt to be suffering from symptomatic gallbladder disease, possibly subacute calculous cholecys titis. She also had a history of peptic ulcer disease including a prior perforated ulcer. She was a dvised to undergo upper GI endoscopy preoperatively, which was performed with the findings of mild an tral gastropathy and no obvious explanation for her pain. She was therefore advised to proceed with laparoscopic cholecystectomy and attempt at definitive surgical treatment of her condition. TECHNIQUE: After informed consent, patient was taken to the operating room and was placed under gene ral endotracheal anesthesia. Preoperative preparation included administration of 2 grams cefazolin i ntravenously within an hour of the incision and application of sequential calf compression boots. He r abdomen was prepared with ChloraPrep solution and draped in the usual sterile fashion. A curvilinear transverse infraumbilical incision was made and carried down through the layers of abdo yanely wall until the peritoneum was identified and entered sharply. A 10 mm Kip cannula was inser carmen and pneumoperitoneum achieved with carbon dioxide. A 10 mm 30-degree Olympus telescope was inser carmen with the findings noted above. Trocars were placed under direct vision in the right mid abdomen and right upper quadrant laterally, where the abdominal wall could be visualized safely, and through these ports using scissors and the LigaSure, extensive adhesiolysis was carried out in the right uppe r quadrant, creating a space to perform the cholecystectomy. Care was taken to avoid injury to the s tomach and colon as adhesions were lysed. A third 5 mm port was then placed in the right upper quadrant and instruments were passed, where the gallbladder was able to be grasped and retracted in the cephalad and lateral direction. Extensive pe richolecystic adhesions were present and were lysed sharply and bluntly. The cystic triangle of Kirby t was eventually exposed and carefully dissected, isolating the cystic duct and artery adjacent to th e gallbladder. The critical view of safety was obtained. The cystic artery was doubly clipped proxi isac and distally adjacent to the gallbladder and divided between the cystic duct, was triply clippe d distally, doubly proximally adjacent to the gallbladder and divided between. The gallbladder was d issected from the liver bed using electrocautery for dissection and hemostasis. The gallbladder lume n was entered on one occasion and some sludge was evacuated. The gallbladder was eventually able to be completely dissected free from the liver bed, placed in an organ retrieval bag, extracted, and sen t for pathologic evaluation. After hemostasis was assured, the right upper quadrant was copiously irrigated with saline solution, following which instruments and cannulas were removed under direct vision. Pneumoperitoneum was allo wed to escape, and the incisions were closed in layers using continuous 0 Vicryl to reapproximate the midline fascia of the umbilicus, followed by 4-0 Monocryl subcuticular skin closure at all the port sites, followed by Dermabond. Anesthesia was terminated and patient transferred to the recovery room in satisfactory condition. Sponge and needle counts were correct x2. No drains were used. TD: 10/01/2018 18:44
[2018-10-01] MEDS ORDERED: SODIUM CHLORIDE 0.9% 500 ML IV STA (20:45)
[2018-10-02] MEDS: KETOROLAC 30 MG/ML VIAL IVP PRN (02:46)
[2018-10-02] MEDS: SODIUM CHLORIDE FLUSH 0.9% 10 ML SYRINGE IVP SCH ×2 (02:50→09:09)
[2018-10-02] MEDS: oxyCODONE 5 MG TABLET PO PRN ×3 (04:09→13:16)
[2018-10-02 07:00] LABS: BASOPHILS % (AUTO) 0.2 %; EOSINOPHILS % (AUTO) 0.1 %; HGB - HEMOGLOBIN 12.3 g/dL (12.0-16.0); LYMPHOCYTES # (AUTO) 1.1 10^3/uL (1.5-3.5); LYMPHOCYTES % (AUTO) 14.1 %; MEAN CORPUSCULAR HEMOGLOBIN 30.1 pg (27.0-31.0); MEAN CORPUSCULAR HGB CONC 33.4 g/dL (32.0-36.0); MEAN CORPUSCULAR VOLUME 90.3 fL (81.0-99.0); MEAN PLATELET VOLUME 10.2 fL (7.9-10.8); MONOCYTES # (AUTO) 0.5 10^3/uL (0.0-1.0); MONOCYTES % (AUTO) 7.2 %; NEUTROPHILS % (AUTO) 78.4 %; PLT - PLATELET COUNT 248 10^3/uL (130-450); RED BLOOD COUNT 4.09 10^6/uL (4.20-5.40); RED CELL DISTRIBUTION WIDTH 13.3 % (12.0-15.0); WHITE BLOOD COUNT 7.6 x10^3/uL (4.8-10.8)
[2018-10-02] MEDS ORDERED: PANTOPRAZOLE 40 MG TABLET PO SCH (07:00)
[2018-10-02 07:08] LABS: ALBUMIN 3.4 g/dL (3.2-5.5); ALBUMIN/GLOBULIN RATIO 1.2 (1.0-2.2); BILIRUBIN,TOTAL 0.7 mg/dL (0.2-1.0); CALCIUM 8.4 mg/dL (8.5-10.3); CREATININE 0.4 mg/dL (0.4-1.0); TOTAL PROTEIN 6.2 g/dL (6.7-8.2)
[2018-10-02 08:17] VITALS: BP 96/72
--- NOTE | 2018-10-02 08:51 | ED Physician Documentation ---
ED Addendum - Addendum Addendum: 10/02/18 08:51 Dr Floyd saw pt and will place in obs pending operative intervention.
[2018-10-02] MEDS: diphenhydrAMINE 25 MG CAPSULE PO PRN (09:14)
--- NOTE | 2018-10-02 09:32 | PROVIDER PROGRESS NOTE ---
Subjective - General Admit Date: 09/30/18 Procedure Date: 10/01/18 Post Op Days: 1 Procedure Performed: EGD, Lap marta - Review of Systems Wound/Incisions: positive: Healing well, Drainage (minimal drainage from RLQ port site, serosanguinous, overnight, now resolved.) General: positive: No symptoms HEENT: positive: No symptoms Pulmonary: positive: No symptoms Cardiovascular: positive: No symptoms Gastrointestinal: positive: Abdominal pain (controlled with oral oxycodone plus IV ketorolac). negative: Nausea, Vomiting Genitourinary: positive: No symptoms Psychiatric: positive: No symptoms - Other Other Information/Narrative: Feeling better overall; preop sx improved; no N/V, tolerating po well, voiding, and ambulating well. Objective - Patient Data Reviewed Vital Signs: Yes Vital Signs: Vital Signs x48h Temp Pulse Resp BP Pulse Ox 10/02/18 08:16 36.7 C 83 20 96/72 98 10/02/18 06:50 36.7 C 18 96/56 L 96 10/02/18 05:00 36.2 C L 18 96 10/02/18 04:00 98/68 10/02/18 02:54 36.2 C L 67 16 86/55 L 96 Weight: Weight 09/30/18 10/01/18 10/02/18 23:59 23:59 23:59 Weight (kg) 60.5 kg Intake & Output: Intake and Output Totals x24h 09/30/18 10/01/18 10/02/18 23:59 23:59 23:59 Intake Total 267.5 2440 Output Total 850 350 Balance 267.5 1590 -350 - Lab Results Lab Results: 10/02/18 06:51 10/02/18 06:51 Other Lab Results: Lab Results x24hrs 10/02/18 10/02/18 Range/Units 06:51 06:51 WBC 7.6 (4.8-10.8) x10^3/uL RBC 4.09 L (4.20-5.40) 10^6/uL Hgb 12.3 (12.0-16.0) g/dL Hct 36.9 L (37.0-47.0) % MCV 90.3 (81.0-99.0) fL MCH 30.1 (27.0-31.0) pg MCHC 33.4 (32.0-36.0) g/dL RDW 13.3 (12.0-15.0) % Plt Count 248 (130-450) 10^3/uL MPV 10.2 (7.9-10.8) fL Neut # (Auto) 6.0 (1.5-6.6) 10^3/uL Lymph # (Auto) 1.1 L (1.5-3.5) 10^3/uL [place] # (Auto) 0.5 (0.0-1.0) 10^3/uL Eos # (Auto) 0.0 (0.0-0.7) 10^3/uL Baso # (Auto) 0.0 (0.0-0.1) 10^3/uL Absolute Nucleated RBC 0.00 x10^3/uL Nucleated RBC % 0.0 /100WBC Sodium 138 (135-145) mmol/L Potassium 3.8 (3.5-5.0) mmol/L Chloride 106 (101-111) mmol/L Carbon Dioxide 24 (21-32) mmol/L Anion Gap 8.0 (6-13) BUN 6 (6-20) mg/dL Creatinine 0.4 (0.4-1.0) mg/dL Estimated GFR (MDRD) 185 (>89) Glucose 108 H (70-100) mg/dL Calcium 8.4 L (8.5-10.3) mg/dL Total Bilirubin 0.7 (0.2-1.0) mg/dL AST 29 (10-42) IU/L ALT 24 (10-60) IU/L Alkaline Phosphatase 42 (42-121) IU/L Total Protein 6.2 L (6.7-8.2) g/dL Albumin 3.4 (3.2-5.5) g/dL Globulin 2.8 (2.1-4.2) g/dL Albumin/Globulin Ratio 1.2 (1.0-2.2) Lipase 26 (22-51) U/L - Current Medications Current Medications: Current Medications Generic Name Dose Route Start Last Admin Trade Name Freq PRN Reason Stop Dose Admin Diphenhydramine HCl 25 mg 09/30/18 18:21 10/02/18 09:14 Benadryl PO 25 mg Q6H PRN Administration ITCHING Lactated Ringer's 1,000 mls @ 50 mls/hr 10/01/18 18:26 10/01/18 19:20 Lr IV 50 mls/hr .Q20H SAMANTA Administration Ketorolac Tromethamine 30 mg 10/01/18 11:35 10/02/18 02:46 Toradol Inj (30mg) IVP 10/06/18 11:34 30 mg Q6HR PRN Administration PAIN Ondansetron HCl 4 mg 09/30/18 18:21 10/01/18 19:37 Zofran Inj IVP 4 mg Q6H PRN Administration Nausea / Vomiting Oxycodone HCl 5 - 10 mg 09/30/18 20:24 10/02/18 09:08 Roxicodone PO 10 mg Q4HR PRN Administration PAIN Pantoprazole Sodium 40 mg 10/02/18 07:00 10/02/18 06:51 Protonix PO 40 mg QDAC SAMANTA Administration Sodium Chloride 10 ml 10/02/18 01:00 10/02/18 09:09 Normal Saline Flush 0.9% IVP 10 ml 0100,0900,1700 SAMANTA Administration Sodium Chloride 10 ml 10/01/18 18:20 10/01/18 19:21 Normal Saline Flush 0.9% IVP 10 ml PRN PRN Administration NEEDED PER PROVIDER ORDERS - Physical Exam Wound/Incisions: positive: Healing well General Appearance: positive: No acute distress, Alert ENT: positive: ENT inspection nml Neck: positive: Nml inspection Respiratory: positive: Chest non-tender, No respiratory distress, Breath sounds nml Cardiovascular: positive: Regular rate & rhythm, No murmur, No gallop Abdomen: positive: No distention, Tenderness (expected postop tenderness), Other (incisions healing well) Skin: positive: Warm, Dry Extremities: positive: Pedal edema. negative: Calf tenderness Neurologic/Psychiatric: positive: Oriented x3 ABX Reporting Has patient been on IV antibiotics over the past 48 hours?: No Impression/Plan - Problem List Problem List: doing well PO day #1, s/p lap marta Rec: home today; oral analgesics; usual precautions, f/u my office 1-2 weeks.
--- NOTE | 2018-10-02 09:42 | Discharge Plan ---
Discharge Plan Disposition: 01 Home, Self Care Condition: Good Prescriptions: Acetaminophen 650 mg PO Q6H PRN #30 tablet PRN Reason: Pain oxyCODONE [Roxicodone] 5 - 10 mg PO Q6H PRN #20 tablet PRN Reason: Pain Diet: Regular Activity Restrictions: no lifting more than 10 lbs for 1 week Shower Restrictions: No Driving Restrictions: Yes (not while using narcotics) Weight Bearing: Full Weight Additional Instructions or Follow Up instructions: f/u with Dr. Floyd in 1-2 weeks; call [phone] for an appointment No Smoking: If you smoke, Please STOP! Call for help. Follow-up with: Gunnar Floyd MD [Provider Admit Priv/Credential] -
--- NOTE | 2018-10-02 09:47 | DISCHARGE SUMMARY ---
"Discharge Summary Admit Date: 09/30/18 Discharge Date: 10/02/18 Discharging Provider: Dr. Gunnar Floyd Code Status: Attempt Resuscitation Condition at Discharge: Good Discharge Disposition: 01 Home, Self Care Discharge Facility Name: [facility] - DIAGNOSES Admission Diagnoses: RUQ abd pain, symptomatic gallbladder disease. Discharge Diagnoses with Status of Each Condition: Improved following lap marta - HPI History of Present Illness: See surgical consultation/H&P - CONSULTS | PROCEDURES Procedures: 10/01/18: EGD Laparoscopic Cholecystectomy - HOSPITAL COURSE Hospital Course: Pt underwent EGD which showed mild antral gastropathy but no explanation for her sx, so she then underwent laparoscopic cholecystectomy on 10/01/18. Her postop course was uneventful and by the first postop day she was tolerating a regular diet, ambulatory, voiding well, with adequate pain control, with stable vs and incisions healing well. - ALLERGIES Allergies/Adverse Reactions: Allergies Allergy/AdvReac Type Severity Reaction Status Date / Time aspirin Allergy Severe Anaphylaxis Verified 03/23/18 10:17 hydromorphone HCl * Allergy Severe Hives Verified 03/23/18 10:17 [From Dilaudid] morphine Allergy Severe Hives Verified 03/23/18 10:17 nitrofurantoin Allergy Severe Respiratory Verified 03/23/18 10:17 macrocrystalline * [From Macrobid] acetaminophen [From Ofirmev] Allergy Hives Verified 03/23/18 10:17 amoxicillin Allergy Anaphylaxis Verified 03/23/18 10:17 famotidine [From Pepcid] Allergy Anaphylaxis Verified 03/23/18 10:17 fentanyl Allergy Unknown Verified 03/23/18 10:17 fluconazole Allergy Hives Verified 03/23/18 10:17 meperidine HCl * Allergy Anaphylaxis Verified 03/23/18 10:17 [From Demerol] Penicillins Allergy Anaphylaxis Verified 03/23/18 10:17 prednisone Allergy Anaphylaxis Verified 03/23/18 10:17 tamsulosin HCl * Allergy Unknown Verified 03/23/18 10:17 [From Flomax] wheat Allergy Hives Verified 03/23/18 10:17 hydrocodone [Hydrocodone] AdvReac Severe Emesis Verified 03/23/18 10:17 butorphanol AdvReac Intermediate Anxiety Verified 03/23/18 10:17 adhesive AdvReac Rash Verified 03/23/18 10:17 Alcova And Derivatives AdvReac Nausea Verified 10/02/18 09:20 egg AdvReac Nausea Verified 10/02/18 09:20 fexofenadine AdvReac Edema Verified 03/23/18 10:17 milk AdvReac Nausea Verified 10/02/18 09:20 NSAIDS (Non-Steroidal AdvReac Cramps Verified 03/23/18 10:17 Anti-Inflamma - MEDICATIONS Home Medications: Ambulatory Orders Medication Instructions Recorded Confirmed diphenhydrAMINE [Benadryl] 25 mg PO Q4-6H PRN #30 capsule 10/27/17 raNITIdine [Zantac] 150 mg PO BID 10/27/17 10/27/17 EPINEPHrine [Epipen 2-Kolby] 0.3 mg IJ ONCE PRN #1 unit 03/23/18 Omeprazole 20 mg PO 09/30/18 Acetaminophen 650 mg PO Q6H PRN #30 tablet 10/02/18 oxyCODONE [Roxicodone] 5 - 10 mg PO Q6H PRN #20 tablet 10/02/18 - PHYSICAL EXAM AT DISCHARGE General Appearance: positive: No acute distress, Alert Eyes Bilateral: positive: Normal inspection ENT: positive: ENT inspection nml Neck: positive: Nml inspection Respiratory: positive: Chest non-tender, Breath sounds nml Cardiovascular: positive: Regular rate & rhythm, No murmur, No gallop Abdomen: positive: No distention, Tenderness (expected postop tenderness), Other (incisions healing well) Skin: positive: Warm, Dry. negative: Cyanosis Extremities: positive: Non-tender, No pedal edema. negative: Calf tenderness Neurologic/Psychiatric: positive: Oriented x3 - LABS Result Diagrams: 10/02/18 06:51 10/02/18 06:51 Other Lab Results: LFTs, lipase nl today - FOLLOW UP Follow Up: Dr. Floyd in 1-2 weeks - TIME SPENT Time Spent in Discharge (Minutes): 30"
== END 2018-10-02 13:10 | disposition home or self-care (01) ==
LOC: ED 10:19 → OBS 18:21
PROVIDERS: ADMIT Internal Medicine Gastroenterology; ATTEND Internal Medicine Gastroenterology
PROC: 0FT44ZZ Resection of Gallbladder, Percutaneous Endoscopic Approach (ICD-10-PCS; principal; 2018-09-30)
PROC: 0DB98ZX Excision of Duodenum, Via Natural or Artificial Opening Endoscopic, Diagnostic (ICD-10-PCS; 2018-09-30)
PROC: 0DB78ZX Excision of Stomach, Pylorus, Via Natural or Artificial Opening Endoscopic, Diagnostic (ICD-10-PCS; 2018-09-30)
DX: K80.10 Calculus of gallbladder with chronic cholecystitis without obstruction (principal); K31.9 Disease of stomach and duodenum, unspecified; K21.0 Gastro-esophageal reflux disease with esophagitis; J32.9 Chronic sinusitis, unspecified; S83.92XD Sprain of unspecified site of left knee, subsequent encounter; Z87.11 Personal history of peptic ulcer disease; Z87.01 Personal history of pneumonia (recurrent)
CPT/HCPCS: 36415; 43239; 47562; 73564; 76705; 80053; 81003; 81025; 83690; 85025; 87081; 87640; 88304; 88305; 96361; 96365; 96372; 96375; 96376; 99283; 99284; A9270; G0378; J0131; J0690; J1200; J3010; J7120; 81001; 87086; 96374

== ENCOUNTER 2018-10-27 12:45 | Outpatient (CLI) | payer MEDICAID | END 2018-10-27 12:46 | disposition critical access hospital (66) | LOC: EMS 12:45 | PROVIDERS: ATTEND Surgery | DX: T78.40XA Allergy, unspecified, initial encounter (principal); R06.02 Shortness of breath; L29.9 Pruritus, unspecified | CPT/HCPCS: A0425; A0427; A0999 ==

== ENCOUNTER 2018-10-27 13:04 | Emergency (ER) | payer MEDICAID ==
[2018-10-27] MEDS ORDERED: LORazepam 2 MG/ML VIAL IVP STA (13:09)
[2018-10-27] MEDS ORDERED: SODIUM CHLORIDE 0.9% 1,000 ML IV ONE (13:09)
--- NOTE | 2018-10-27 13:15 | ED Physician Documentation ---
History of Present Illness - Stated complaint Stated Complaint: ALLERGIC REACTION - Chief complaint Chief Complaint: Resp - History obtained from History obtained from: Patient, EMS - History of Present Illness Timing: Today Pain level max: 0 Pain level now: 0 - Additonal information Additional information: 32-year-old female presents to the emergency department with a presumed allergic reaction. She states that she left the dentist after receiving "injections in her mouth" and had trouble breathing. Contacted EMS. EMS gave her 4 doses of 0.3 mg epinephrine IM then started on epinephrine drip and a magnesium drip. They also gave her a DuoNeb treatment and albuterol treatment with no changes in her status. She has had this multiple times in the past and has been found to be mostly vocal cord dysfunction and spasm rather than true anaphylaxis. Normally improves with Ativan. Nothing makes this better or worse. Review of Systems Ten Systems: 10 systems reviewed and negative Constitutional: denies: Fever, Chills Respiratory: denies: Cough GI: denies: Nausea, Vomiting Skin: denies: Rash Musculoskeletal: denies: Neck pain, Back pain Neurologic: denies: Headache PD PAST MEDICAL HISTORY - Past Medical History Cardiovascular: None, Other Respiratory: None, Other Neuro: Other (See chart) Endocrine/Autoimmune: None GI: Ulcers CHICKEN PICKER: 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 : None HEENT: Chronic sinusitis Psych: None Musculoskeletal: None Derm: None - Past Surgical History Past Surgical History: Yes General: Appendectomy, Gastric surgery Ortho: Other /CHICKEN PICKER: section, Tubal ligation, Hysterectomy, Other Neuro: Craniotomy HEENT: Tonsil/Adenoidectomy - Present Medications Home Medications: Ambulatory Orders Medication Instructions Recorded Confirmed diphenhydrAMINE [Benadryl] 25 mg PO Q4-6H PRN #30 capsule 10/27/17 10/02/18 raNITIdine [Zantac] 150 mg PO BID 10/27/17 10/02/18 EPINEPHrine [Epipen 2-Kolby] 0.3 mg IJ ONCE PRN #1 unit 03/23/18 10/02/18 Omeprazole 20 mg PO 09/30/18 Acetaminophen 650 mg PO Q6H PRN #30 tablet 10/02/18 oxyCODONE [Roxicodone] 5 - 10 mg PO Q6H PRN #20 tablet 10/02/18 - Allergies Allergies/Adverse Reactions: Allergies Allergy/AdvReac Type Severity Reaction Status Date / Time aspirin Allergy Severe Anaphylaxis Verified 10/27/18 13:12 hydromorphone HCl * Allergy Severe Hives Verified 10/27/18 13:12 [From Dilaudid] morphine Allergy Severe Hives Verified 10/27/18 13:12 nitrofurantoin Allergy Severe Respiratory Verified 10/27/18 13:12 macrocrystalline * [From Macrobid] acetaminophen [From Ofirmev] Allergy Hives Verified 10/27/18 13:12 amoxicillin Allergy Anaphylaxis Verified 10/27/18 13:12 famotidine [From Pepcid] Allergy Anaphylaxis Verified 10/27/18 13:12 fentanyl Allergy Unknown Verified 10/27/18 13:12 fluconazole Allergy Hives Verified 10/27/18 13:12 meperidine HCl * Allergy Anaphylaxis Verified 10/27/18 13:12 [From Demerol] Penicillins Allergy Anaphylaxis Verified 10/27/18 13:12 prednisone Allergy Anaphylaxis Verified 10/27/18 13:12 tamsulosin HCl * Allergy Unknown Verified 10/27/18 13:12 [From Flomax] wheat Allergy Hives Verified 10/27/18 13:12 hydrocodone [Hydrocodone] AdvReac Severe Emesis Verified 10/27/18 13:12 butorphanol AdvReac Intermediate Anxiety Verified 10/27/18 13:12 adhesive AdvReac Rash Verified 10/27/18 13:12 [place] And Derivatives AdvReac Nausea Verified 10/27/18 13:12 egg AdvReac Nausea Verified 10/27/18 13:12 fexofenadine AdvReac Edema Verified 10/27/18 13:12 milk AdvReac Nausea Verified 10/27/18 13:12 NSAIDS (Non-Steroidal AdvReac Cramps Verified 10/27/18 13:12 Anti-Inflamma - Social History Does the pt smoke?: No Smoking Status: Never smoker Does the pt drink ETOH?: No Does the pt have substance abuse?: No - Immunizations Immunizations are current?: Yes - POLST Patient has POLST: No POLST Status: Full Code PD ED PE NORMAL - Vitals Vital signs reviewed: Yes - General General: Alert and oriented X 3, Well developed/nourished, Other (Stridorous noises) - HEENT HEENT: PERRL, Moist mucous membranes, Pharynx benign - Neck Neck: Supple, no meningeal sign - Cardiac Cardiac: RRR, Strong equal pulses - Respiratory Respiratory: Clear bilaterally (Clear breath sounds in the lungs. Stridor resolved With opening her mouth) - Abdomen Abdomen: Soft, Non tender, Non distended - Derm Derm: Warm and dry - Extremities Extremities: No edema - Neuro Neuro: Alert and oriented X 3 - Psych Psych: Normal mood, Normal affect Results - Vitals Vitals: Vital Signs - 24 hr 10/27/18 10/27/18 10/27/18 13:06 13:26 14:05 Temperature 36.9 C Heart Rate 134 H 126 H 122 H Respiratory 36 H 20 23 Rate Blood Pressure 113/62 98/61 82/52 L O2 Saturation 99 98 95 10/27/18 14:40 Temperature Heart Rate 122 H Respiratory 21 Rate Blood Pressure 86/55 L O2 Saturation 100 Oxygen O2 Source Room air PD MEDICAL DECISION MAKING - ED course Complexity details: reviewed results, re-evaluated patient, considered differential, d/w patient ED course: 32-year-old female with a well-known history of laryngospasm and vocal cord dysfunction. Symptoms resolved with 2 mg of IV Ativan. She feels much better. No recurrent symptoms. No evidence of anaphylaxis. We will follow-up with her doctor for further care. Patient counseled regarding signs and symptoms for which I believe and urgent re-evaluation would be necessary. Patient with good understanding of and agreement to plan and is comfortable going home at this time This document was made in part using voice recognition software. While efforts are made to proofread this document, sound alike and grammatical errors may occur. Departure - Departure Disposition: 01 Home, Self Care Clinical Impression: Laryngospasms Condition: Good Instructions: ED Dyspnea Shortness of Breath Follow-Up: Provider,Other [Primary Care Provider] - Within 3 Days Comments: Follow-up with your doctor for further care. Return if you worsen. Discharge Date/Time: 10/27/18 15:10
[2018-10-27 14:41] VITALS: BP 86/55
== END 2018-10-27 15:10 | disposition home or self-care (01) ==
LOC: EDUNIT# → ED 13:04
DX: J38.5 Laryngeal spasm (principal)
CPT/HCPCS: 96374; 99283; J2060

== ENCOUNTER 2018-11-10 14:30 | Outpatient (CLI) | payer MEDICAID ==
--- NOTE | 2018-11-10 15:56 | XRAY Report ---
Reason: PAIN IN LEFT KNEE Procedure Date: 11/10/2018 Accession Number: [id number] / [id number] Procedure: XR - Knee 3 View LT CPT Code: FULL RESULT: EXAM: LEFT KNEE RADIOGRAPHY EXAM DATE: 11/10/2018 03:18 PM. CLINICAL HISTORY: Pain in left knee. COMPARISON: Left knee 4 views 09/30/2018. TECHNIQUE: 3 views. FINDINGS: Bones: Normal. No fractures or bone lesions. Joints: Normal. No effusion. No subluxations. Soft Tissues: Normal. No soft tissue swelling. IMPRESSION: Normal knee radiography. [facility]
== END 2018-11-10 14:31 | disposition home or self-care (01) ==
LOC: DI 14:30
PROVIDERS: ATTEND Registered Nurse
DX: M25.562 Pain in left knee (principal)

== ENCOUNTER 2018-11-10 17:27 | Emergency (ER) | payer MEDICAID ==
[2018-11-10] MEDS ORDERED: oxyCODONE 5 MG TABLET PO STA (18:14)
--- NOTE | 2018-11-10 18:19 | ED Physician Documentation ---
History of Present Illness - Stated complaint Stated Complaint: LT KNEE PAIN - Chief complaint Chief Complaint: General - History obtained from History obtained from: Patient - History of Present Illness Timing: Other (About 3 months ago she fell on the stairs twisting her left knee and has had persistent medial knee pain ever since which is worse today. It is associated with a fever but no redness or swelling of the knee that is new. There is no other source of the fever, no sore throat, runny nose, abdominal pain, cough, urinary complaints.) Review of Systems Constitutional: reports: Fever, Chills. 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 : None HEENT: Chronic sinusitis Psych: None Musculoskeletal: None Derm: None - Past Surgical History Past Surgical History: Yes General: Appendectomy, Gastric surgery Ortho: Other /FILAMENT WELDER: section, Tubal ligation, Hysterectomy, Other Neuro: Craniotomy HEENT: Tonsil/Adenoidectomy - Present Medications Home Medications: Ambulatory Orders Medication Instructions Recorded Confirmed diphenhydrAMINE [Benadryl] 25 mg PO Q4-6H PRN #30 capsule 10/27/17 10/02/18 raNITIdine [Zantac] 150 mg PO BID 10/27/17 10/02/18 EPINEPHrine [Epipen 2-Kolby] 0.3 mg IJ ONCE PRN #1 unit 03/23/18 10/02/18 Omeprazole 20 mg PO 09/30/18 Acetaminophen 650 mg PO Q6H PRN #30 tablet 10/02/18 oxyCODONE [Roxicodone] 5 - 10 mg PO Q6H PRN #20 tablet 10/02/18 EPINEPHrine [Epinephrine] 0.3 mg IJ ONCE PRN #2 auto.injct 11/10/18 oxyCODONE [Roxicodone] 5 mg PO Q4-6H PRN #10 tablet 11/10/18 - Allergies Allergies/Adverse Reactions: Allergies Allergy/AdvReac Type Severity Reaction Status Date / Time aspirin Allergy Severe Anaphylaxis Verified 10/27/18 13:12 hydromorphone HCl * Allergy Severe Hives Verified 10/27/18 13:12 [From Dilaudid] morphine Allergy Severe Hives Verified 10/27/18 13:12 nitrofurantoin Allergy Severe Respiratory Verified 10/27/18 13:12 macrocrystalline * [From Macrobid] acetaminophen [From Ofirmev] Allergy Hives Verified 10/27/18 13:12 amoxicillin Allergy Anaphylaxis Verified 10/27/18 13:12 famotidine [From Pepcid] Allergy Anaphylaxis Verified 10/27/18 13:12 fentanyl Allergy Unknown Verified 10/27/18 13:12 fluconazole Allergy Hives Verified 10/27/18 13:12 lidocaine Allergy Unknown Verified 11/10/18 17:48 meperidine HCl * Allergy Anaphylaxis Verified 10/27/18 13:12 [From Demerol] Penicillins Allergy Anaphylaxis Verified 10/27/18 13:12 prednisone Allergy Anaphylaxis Verified 10/27/18 13:12 tamsulosin HCl * Allergy Unknown Verified 10/27/18 13:12 [From Flomax] wheat Allergy Hives Verified 10/27/18 13:12 hydrocodone [Hydrocodone] AdvReac Severe Emesis Verified 10/27/18 13:12 butorphanol AdvReac Intermediate Anxiety Verified 10/27/18 13:12 adhesive AdvReac Rash Verified 10/27/18 13:12 [place] And Derivatives AdvReac Nausea Verified 10/27/18 13:12 egg AdvReac Nausea Verified 10/27/18 13:12 fexofenadine AdvReac Edema Verified 10/27/18 13:12 milk AdvReac Nausea Verified 10/27/18 13:12 NSAIDS (Non-Steroidal AdvReac Cramps Verified 10/27/18 13:12 Anti-Inflamma - Social History Does the pt smoke?: No Smoking Status: Never smoker Does the pt drink ETOH?: Yes Does the pt have substance abuse?: No - Immunizations Immunizations are current?: Yes - POLST Patient has POLST: No POLST Status: Full Code PD ED PE NORMAL - Vitals Vital signs reviewed: Yes - General General: Alert and oriented X 3, No acute distress - HEENT HEENT: Pharynx benign - Neck Neck: Supple, no meningeal sign, No bony TTP - Cardiac Cardiac: RRR, No murmur - Respiratory Respiratory: No respiratory distress, Clear bilaterally - Abdomen Abdomen: Non tender - Extremities Extremities: Other (The left knee is without significant effusion, there is no warmth or redness. There is tenderness along the medial joint line and positive grind testing but no severe pain with passive range of motion. She does have crepitance behind the patella consistent with chondromalacia or patellofemoral syndrome.) - Neuro Neuro: Alert and oriented X 3, Normal speech - Psych Psych: Normal mood, Normal affect Results - Vitals Vitals: Vital Signs - 24 hr 11/10/18 11/10/18 17:43 18:52 Temperature 37.1 C 37.0 C Heart Rate 89 92 Respiratory 14 16 Rate Blood Pressure 116/81 H 115/78 O2 Saturation 100 100 Oxygen O2 Source Room air - Labs Labs: Laboratory Tests 11/10/18 11/10/18 11/10/18 17:55 17:55 18:41 WBC 8.9 RBC 4.54 Hgb 13.7 Hct 40.1 MCV 88.2 MCH 30.1 MCHC 34.1 RDW 13.4 Plt Count 252 MPV 10.3 Neut # (Auto) 5.3 Lymph # (Auto) 2.7 [place] # (Auto) 0.4 Eos # (Auto) 0.5 Baso # (Auto) 0.1 Absolute Nucleated RBC 0.01 Nucleated RBC % 0.1 Sodium Potassium Chloride Carbon Dioxide Anion Gap BUN Creatinine Estimated GFR (MDRD) Glucose Calcium Total Bilirubin AST ALT Alkaline Phosphatase Total Protein Albumin Globulin Albumin/Globulin Ratio Lipase Urine Color YELLOW Urine Clarity CLEAR Urine pH 6.0 Ur Specific [place] 1.025 1.025 Urine Protein NEGATIVE Urine Glucose (UA) NEGATIVE Urine Ketones NEGATIVE Urine Occult Blood NEGATIVE Urine Nitrite NEGATIVE Urine Bilirubin NEGATIVE Urine Urobilinogen 0.2 (NORMAL) Ur Leukocyte Esterase NEGATIVE Ur Microscopic Review NOT INDICATED Urine Culture Comments NOT INDICATED Urine HCG, Qual NEGATIVE 11/10/18 18:41 WBC RBC Hgb Hct MCV MCH MCHC RDW Plt Count MPV Neut # (Auto) Lymph # (Auto) Wake # (Auto) Eos # (Auto) Baso # (Auto) Absolute Nucleated RBC Nucleated RBC % Sodium 140 Potassium 3.6 Chloride 108 Carbon Dioxide 21 Anion Gap 11.0 BUN 13 Creatinine 0.6 Estimated GFR (MDRD) 116 Glucose 107 H Calcium 9.1 Total Bilirubin 0.6 AST 19 ALT 15 Alkaline Phosphatase 41 L Total Protein 7.7 Albumin 4.6 Globulin 3.1 Albumin/Globulin Ratio 1.5 Lipase 55 H Urine Color Urine Clarity Urine pH Ur Specific [place] Urine Protein Urine Glucose (UA) Urine Ketones Urine Occult Blood Urine Nitrite Urine Bilirubin Urine Urobilinogen Ur Leukocyte Esterase Ur Microscopic Review Urine Culture Comments Urine HCG, Qual PD MEDICAL DECISION MAKING - ED course ED course: 32-year-old woman with some chronic knee pain with a more acute component. Had a fever at home clinically the knee is not the infectious source. Her blood work is reassuring. While here she had an episode of laryngeal spasm which she has had in the department before and was treated successfully and easily with Ativan. She also needed a refill of her EpiPen's. Departure - Departure Disposition: Home, Self Care Clinical Impression: Laryngospasms Left knee sprain Qualifiers: Encounter type: initial encounter Involved ligament of knee: medial collateral ligament Qualified Code(s): S83.412A - Sprain of medial collateral ligament of left knee, initial encounter Condition: Good Record reviewed to determine appropriate education?: Yes Instructions: ED Knee Pain [facility] Follow-Up: [facility] [Provider Group] Prescriptions: EPINEPHrine [Epinephrine] 0.3 mg IJ ONCE PRN #2 auto.injct PRN Reason: Allergy Symptoms oxyCODONE [Roxicodone] 5 mg PO Q4-6H PRN #10 tablet PRN Reason: Pain Comments: Call your doctor to arrange a follow-up appointment, make the next available appointment. In the interim, return anytime if worse or if new symptoms develop.
[2018-11-10 18:28] LABS: BILIRUBIN,URINE NEGATIVE (NEGATIVE); GLUCOSE, URINE (UA) NEGATIVE (NEGATIVE); KETONES,URINE (UA) NEGATIVE (NEGATIVE); LEUKOCYTE ESTERASE, URINE NEGATIVE (NEGATIVE); NITRITE,URINE NEGATIVE (NEGATIVE); OCCULT BLOOD,URINE NEGATIVE (NEGATIVE); PROTEIN,URINE NEGATIVE (NEGATIVE); UROBILINOGEN,URINE 0.2 (NORMAL) E.U./dL (NORMAL)
[2018-11-10 18:31] LABS: CLARITY,URINE CLEAR (CLEAR); HCG UR QUAL NEGATIVE
[2018-11-10 18:47] LABS: BASOPHILS # (AUTO) 0.1 10^3/uL (0.0-0.1); BASOPHILS % (AUTO) 1.4 %; EOSINOPHILS # (AUTO) 0.5 10^3/uL (0.0-0.7); EOSINOPHILS % (AUTO) 5.1 %; HGB - HEMOGLOBIN 13.7 g/dL (12.0-16.0); LYMPHOCYTES # (AUTO) 2.7 10^3/uL (1.5-3.5); LYMPHOCYTES % (AUTO) 30.1 %; MEAN CORPUSCULAR HEMOGLOBIN 30.1 pg (27.0-31.0); MEAN CORPUSCULAR HGB CONC 34.1 g/dL (32.0-36.0); MEAN CORPUSCULAR VOLUME 88.2 fL (81.0-99.0); MEAN PLATELET VOLUME 10.3 fL (7.9-10.8); MONOCYTES # (AUTO) 0.4 10^3/uL (0.0-1.0); NEUTROPHILS # (AUTO) 5.3 10^3/uL (1.5-6.6); NEUTROPHILS % (AUTO) 59.4 %; PLT - PLATELET COUNT 252 10^3/uL (130-450); RED BLOOD COUNT 4.54 10^6/uL (4.20-5.40); RED CELL DISTRIBUTION WIDTH 13.4 % (12.0-15.0); WHITE BLOOD COUNT 8.9 x10^3/uL (4.8-10.8)
[2018-11-10] MEDS ORDERED: diphenhydrAMINE 25 MG CAPSULE PO STA (18:50)
[2018-11-10] MEDS ORDERED: LORazepam 2 MG/ML VIAL IM STA (18:56)
[2018-11-10] MEDS ORDERED: diphenhydrAMINE INJ 50 MG/ML VIAL IM STA (18:56)
[2018-11-10 19:02] LABS: ALBUMIN 4.6 g/dL (3.2-5.5); ALBUMIN/GLOBULIN RATIO 1.5 (1.0-2.2); BILIRUBIN,TOTAL 0.6 mg/dL (0.2-1.0); CALCIUM 9.1 mg/dL (8.5-10.3); CREATININE 0.6 mg/dL (0.4-1.0); TOTAL PROTEIN 7.7 g/dL (6.7-8.2)
[2018-11-10 19:08] VITALS: BP 115/78
[2018-11-10] MEDS ORDERED: ONDANSETRON ODT 4 MG TABLET TL STA (19:23)
== END 2018-11-10 19:33 | disposition home or self-care (01) ==
LOC: ED 17:27
DX: S83.412A Sprain of medial collateral ligament of left knee, initial encounter (principal); W10.9XXA Fall (on) (from) unspecified stairs and steps, initial encounter; J38.5 Laryngeal spasm; M25.562 Pain in left knee
CPT/HCPCS: 36415; 73562; 80053; 81003; 81025; 83690; 85025; 96372; 99283; A9270; J1200; J2060; Q0162; 81001; 87086

== ENCOUNTER 2018-12-21 07:12 | Outpatient (CLI) | payer MEDICAID ==
--- NOTE | 2018-12-21 17:04 | MRI Report ---
Reason: CHONDROMALACIA PATELLAE, LEFT KNEE PAIN Procedure Date: 12/21/2018 Accession Number: [id number] / [id number] Procedure: MRI - Knee LT W/O CPT Code: FULL RESULT: EXAM: LEFT KNEE MRI WITHOUT CONTRAST EXAM DATE: 12/21/2018 07:54 AM. CLINICAL HISTORY: Left knee pain chronically. Chondromalacia patella. COMPARISON: 11/10/2018 radiograph. TECHNIQUE: Multiplanar, multisequence T1-weighted and fluid-sensitive sequences of the knee without contrast. Other: None. FINDINGS: Bones: No fractures. Red marrow reconversion is present. Articular Cartilage: The patellofemoral and medial compartment articular cartilage is intact. There is mild surface irregularity of the lateral tibial plateau articular cartilage. Medial Meniscus: The medial meniscus is intact. Lateral Meniscus: The lateral meniscus is intact. Cruciate Ligaments: The anterior and posterior cruciate ligaments are intact. Collateral Ligaments: The medial collateral and lateral collateral ligamentous structures are intact. Tendons: The quadriceps, patellar, semimembranosus, and popliteus tendons are unremarkable. Musculature: No edema or fatty atrophy. Other: No effusion. No popliteal cyst. No loose bodies. The medial and lateral retinacula are intact. Prepatellar subcutaneous edema is seen. IMPRESSION: 1. 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 RADIA
== END 2018-12-21 07:13 | disposition home or self-care (01) ==
LOC: DI 07:12
PROVIDERS: ATTEND Orthopaedic Surgery
DX: M94.262 Chondromalacia, left knee (principal)

== ENCOUNTER 2019-03-17 10:30 | Outpatient (CLI) | payer MEDICAID | END 2019-03-17 10:31 | disposition critical access hospital (66) | LOC: EMS 10:30 | PROVIDERS: ATTEND Surgery | DX: R06.2 Wheezing (principal); R11.10 Vomiting, unspecified | CPT/HCPCS: A0425; A0429; A0999 ==

== ENCOUNTER 2019-03-17 10:57 | Emergency (ER) | payer MEDICAID ==
[2019-03-17] MEDS: CHERRY SYRUP 10 ML UDC PO ONE (11:15)
[2019-03-17] MEDS: DEXAMETHASONE 10 MG/ML VIAL PO STA (11:15)
[2019-03-17] MEDS ORDERED: LORazepam 2 MG/ML VIAL IM STA (12:02)
[2019-03-17 12:36] VITALS: BP 112/77
[2019-03-17] MEDS ORDERED: ONDANSETRON ODT 4 MG TABLET TL STA (12:46)
--- NOTE | 2019-03-17 12:48 | ED Physician Documentation ---
History of Present Illness - Stated complaint Stated Complaint: ALLERGIC RX - Chief complaint Chief Complaint: Allergic Rx - History obtained from History obtained from: Patient - History of Present Illness Timing: Today - Additonal information Additional information: 33-year-old female with a history of laryngeal spasm related to noxious stimuli was in the shower today when she was not wearing her glasses she picked up her daughter benja and started to use it it is heavily scented and she began to immediately have burning and stinging on her skin as well as some difficulty breathing. She took some Benadryl at home when she continued to have some difficulty breathing she eventually called the ambulance and was transported to the hospital. She has stridorous breathing on arrival. Review of Systems Constitutional: denies: Fever Eyes: denies: Decreased vision Ears: denies: Ear pain Nose: denies: Congestion Throat: denies: Sore throat Cardiac: denies: Chest pain / pressure, Palpitations Respiratory: reports: Dyspnea. denies: Cough GI: reports: Nausea. 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 : None HEENT: Chronic sinusitis Psych: None Musculoskeletal: None Derm: None - Past Surgical History Past Surgical History: Yes General: Appendectomy, Gastric surgery Ortho: Other /RADIO INTERFERENCE TROUBLE SHOOTER: section, Tubal ligation, Hysterectomy, Other Neuro: Craniotomy HEENT: Tonsil/Adenoidectomy - Present Medications Home Medications: Ambulatory Orders Medication Instructions Recorded Confirmed diphenhydrAMINE [Benadryl] 25 mg PO Q4-6H PRN #30 capsule 10/27/17 10/02/18 raNITIdine [Zantac] 150 mg PO BID 10/27/17 10/02/18 EPINEPHrine [Epipen 2-Kolby] 0.3 mg IJ ONCE PRN #1 unit 03/23/18 10/02/18 Omeprazole 20 mg PO 09/30/18 Acetaminophen 650 mg PO Q6H PRN #30 tablet 10/02/18 oxyCODONE [Roxicodone] 5 - 10 mg PO Q6H PRN #20 tablet 10/02/18 EPINEPHrine [Epinephrine] 0.3 mg IJ ONCE PRN #2 auto.injct 11/10/18 oxyCODONE [Roxicodone] 5 mg PO Q4-6H PRN #10 tablet 11/10/18 - Allergies Allergies/Adverse Reactions: Allergies Allergy/AdvReac Type Severity Reaction Status Date / Time aspirin Allergy Severe Anaphylaxis Verified 03/17/19 11:03 hydromorphone HCl * Allergy Severe Hives Verified 03/17/19 11:03 [From Dilaudid] morphine Allergy Severe Hives Verified 03/17/19 11:03 nitrofurantoin Allergy Severe Respiratory Verified 03/17/19 11:03 macrocrystalline * [From Macrobid] acetaminophen [From Ofirmev] Allergy Hives Verified 03/17/19 11:03 amoxicillin Allergy Anaphylaxis Verified 03/17/19 11:03 famotidine [From Pepcid] Allergy Anaphylaxis Verified 03/17/19 11:03 fentanyl Allergy Unknown Verified 03/17/19 11:03 fluconazole Allergy Hives Verified 03/17/19 11:03 lidocaine Allergy Unknown Verified 03/17/19 11:03 meperidine HCl * Allergy Anaphylaxis Verified 03/17/19 11:03 [From Demerol] Penicillins Allergy Anaphylaxis Verified 03/17/19 11:03 prednisone Allergy Anaphylaxis Verified 03/17/19 11:03 tamsulosin HCl * Allergy Unknown Verified 03/17/19 11:03 [From Flomax] wheat Allergy Hives Verified 03/17/19 11:03 hydrocodone [Hydrocodone] AdvReac Severe Emesis Verified 03/17/19 11:03 butorphanol AdvReac Intermediate Anxiety Verified 03/17/19 11:03 adhesive AdvReac Rash Verified 03/17/19 11:03 [place] And Derivatives AdvReac Nausea Verified 03/17/19 11:03 egg AdvReac Nausea Verified 03/17/19 11:03 fexofenadine AdvReac Edema Verified 03/17/19 11:03 milk AdvReac Nausea Verified 03/17/19 11:03 NSAIDS (Non-Steroidal AdvReac Cramps Verified 03/17/19 11:03 Anti-Inflamma - Social History Does the pt smoke?: No Smoking Status: Never smoker Does the pt drink ETOH?: Yes Does the pt have substance abuse?: No - Immunizations Immunizations are current?: Yes - POLST Patient has POLST: No POLST Status: Full Code PD ED PE NORMAL - Vitals Vital signs reviewed: Yes (tachy) - General General: Alert and oriented X 3, Well developed/nourished, Other (dramatic stridorus breathing ) - HEENT HEENT: Atraumatic, PERRL, EOMI - Neck Neck: Supple, no meningeal sign, No bony TTP - Cardiac Cardiac: RRR, No murmur - Respiratory Respiratory: Clear bilaterally, Other (The lungs are clear the breathing is dramatic and tachypneic with audible upper airway sounds. ) - Abdomen Abdomen: Soft, Non tender - Back Back: No CVA TTP, No spinal TTP - Derm Derm: Normal color, Warm and dry, No rash - Extremities Extremities: No deformity, No edema - Neuro Neuro: Alert and oriented X 3, perinatal specialist 2-12 intact, No motor deficit, No sensory deficit, Normal speech Eye Opening: Spontaneous Motor: Obeys Commands Verbal: Oriented GCS Score: 15 - Psych Psych: Other (mood is anxious affect is flat) Results - Vitals Vitals: Vital Signs - 24 hr 03/17/19 03/17/19 03/17/19 11:01 11:19 12:33 Temperature 36.9 C Heart Rate 102 H 83 88 Respiratory 22 25 H 20 Rate Blood Pressure 120/80 120/80 112/77 O2 Saturation 99 99 96 Oxygen O2 Source Room air PD MEDICAL DECISION MAKING - ED course Complexity details: reviewed old records, reviewed results, re-evaluated patient, considered differential, d/w patient ED course: 33-year-old female with a prior history of laryngeal spasm has had a noxious stimuli from a perfumed shampoo and she has developed acute laryngeal spasm. She arrives to the emergency department having received Benadryl at home prior to loading to the ambulance and taking her own epinephrine injection. Here in the emergency department she is administered 10 mg of dexamethasone orally as well as 1 mg of Ativan IM and she has marked improvement in her stridor. She is instructed to use Benadryl 25 to 50 mg every 6 hours for the next 2 days. Departure - Departure Disposition: Home, Self Care Clinical Impression: Inspiratory stridor, Laryngospasms Condition: Stable Instructions: ED Allergic Reaction General Other Follow-Up: Your, doctor [Other] Comments: avoid the things you know you react to and take benadryl 25mg every 6 hours for the next 2 days
== END 2019-03-17 13:13 | disposition home or self-care (01) ==
LOC: ED 10:57
DX: J38.5 Laryngeal spasm (principal)
CPT/HCPCS: 96372; 99283; 99284; A9270; J2060; Q0162

== ENCOUNTER 2019-05-05 20:36 | Outpatient (CLI) | payer MEDICAID | END 2019-05-05 20:37 | disposition critical access hospital (66) | LOC: EMS 20:36 | PROVIDERS: ATTEND Surgery | DX: R06.00 Dyspnea, unspecified (principal); R11.2 Nausea with vomiting, unspecified; L29.9 Pruritus, unspecified; R13.10 Dysphagia, unspecified | CPT/HCPCS: A0425; A0427; A0999 ==

== ENCOUNTER 2019-05-05 21:05 | Emergency (ER) | payer MEDICAID ==
[2019-05-05 21:13] VITALS: BP 111/70
[2019-05-05] MEDS ORDERED: DEXAMETHASONE 10 MG/ML VIAL IVP STA (21:31)
--- NOTE | 2019-05-05 21:33 | ED Physician Documentation ---
History of Present Illness - Stated complaint Stated Complaint: ALLERGIC REACTION - Chief complaint Chief Complaint: Resp - History obtained from History obtained from: Patient, EMS - History of Present Illness Timing: Today - Additonal information Additional information: 33-year-old female with frequent visits to the emergency department for allergic reaction went to see her doctor today and was placed onto doxycycline for an abscess in her left thigh. She took her first dose and developed stridor. This is been her usual reaction to medications. She has had a number of rescues usually require some dexamethasone in the emergency department. She has been given Benadryl in the field and she continues to have some stridorous breathing. She did take her EpiPen twice without relief. 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 : None HEENT: Chronic sinusitis Psych: None Musculoskeletal: None Derm: None - Past Surgical History Past Surgical History: Yes General: Appendectomy, Gastric surgery Ortho: Other /CLASSIFICATION AND TREATMENT DIRECTOR: section, Tubal ligation, Hysterectomy, Other Neuro: Craniotomy HEENT: Tonsil/Adenoidectomy - Present Medications Home Medications: Ambulatory Orders Medication Instructions Recorded Confirmed diphenhydrAMINE [Benadryl] 25 mg PO Q4-6H PRN #30 capsule 10/27/17 10/02/18 raNITIdine [Zantac] 150 mg PO BID 10/27/17 10/02/18 EPINEPHrine [Epipen 2-[place]ol[place]] 0.3 mg IJ ONCE PRN #1 unit 03/23/18 10/02/18 Omeprazole 20 mg PO 09/30/18 Acetaminophen 650 mg PO Q6H PRN #30 tablet 10/02/18 oxyCODONE [Roxicodone] 5 - 10 mg PO Q6H PRN #20 tablet 10/02/18 EPINEPHrine [Epinephrine] 0.3 mg IJ ONCE PRN #2 auto.injct 11/10/18 oxyCODONE [Roxicodone] 5 mg PO Q4-6H PRN #10 tablet 11/10/18 Sulfamethoxazole/Trimethoprim 1 each PO BID #14 tablet 05/05/19 [Sulfamethoxazole-Tmp Ds Tablet] - Allergies Allergies/Adverse Reactions: Allergies Allergy/AdvReac Type Severity Reaction Status Date / Time aspirin Allergy Severe Anaphylaxis Verified 05/05/19 21:13 hydromorphone HCl * Allergy Severe Hives Verified 05/05/19 21:13 [From Dilaudid] morphine Allergy Severe Hives Verified 05/05/19 21:13 nitrofurantoin Allergy Severe Respiratory Verified 05/05/19 21:13 macrocrystalline * [From Macrobid] acetaminophen [From Ofirmev] Allergy Hives Verified 05/05/19 21:13 amoxicillin Allergy Anaphylaxis Verified 05/05/19 21:13 famotidine [From Pepcid] Allergy Anaphylaxis Verified 05/05/19 21:13 fentanyl Allergy Unknown Verified 05/05/19 21:13 fluconazole Allergy Hives Verified 05/05/19 21:13 lidocaine Allergy Unknown Verified 05/05/19 21:13 meperidine HCl * Allergy Anaphylaxis Verified 05/05/19 21:13 [From Demerol] Penicillins Allergy Anaphylaxis Verified 05/05/19 21:13 prednisone Allergy Anaphylaxis Verified 05/05/19 21:13 tamsulosin HCl * Allergy Unknown Verified 05/05/19 21:13 [From Flomax] wheat Allergy Hives Verified 05/05/19 21:13 hydrocodone [Hydrocodone] AdvReac Severe Emesis Verified 05/05/19 21:13 butorphanol AdvReac Intermediate Anxiety Verified 05/05/19 21:13 adhesive AdvReac Rash Verified 05/05/19 21:13 [place] And Derivatives AdvReac Nausea Verified 05/05/19 21:13 egg AdvReac Nausea Verified 05/05/19 21:13 fexofenadine AdvReac Edema Verified 05/05/19 21:13 milk AdvReac Nausea Verified 05/05/19 21:13 NSAIDS (Non-Steroidal AdvReac Cramps Verified 05/05/19 21:13 Anti-Inflamma - Social History Does the pt smoke?: No Smoking Status: Never smoker Does the pt drink ETOH?: Yes Does the pt have substance abuse?: No - Immunizations Immunizations are current?: Yes - POLST Patient has POLST: No POLST Status: Full Code PD ED PE NORMAL - Vitals Vital signs reviewed: Yes (normal ) - General General: Alert and oriented X 3, Well developed/nourished, Other (The patient has stridoros breathing with fair air movment and mostly a lot of upper airway noise. ) - HEENT HEENT: Atraumatic, PERRL, EOMI - Neck Neck: Supple, no meningeal sign, No bony TTP - Cardiac Cardiac: RRR, No murmur - Respiratory Respiratory: Clear bilaterally, Other (stidorus breathing with a lot of noise but with fair air movment) - Abdomen Abdomen: Soft, Non tender - Back Back: No CVA TTP, No spinal TTP - Derm Derm: Normal color, Warm and dry, No rash, Other (There is a firm 1cm tender mass in the left medial thigh along the panty line with overlying erythema and no fluctuance. ) - Extremities Extremities: No deformity, No edema, No calf tenderness / cord - Neuro Neuro: Alert and oriented X 3, house visitor 2-12 intact, No motor deficit, No sensory deficit Eye Opening: Spontaneous Motor: Obeys Commands Verbal: Oriented GCS Score: 15 - Psych Psych: Normal mood, Normal affect Results - Vitals Vitals: Vital Signs - 24 hr 05/05/19 05/05/19 21:06 21:12 Temperature 98.1 C H Heart Rate 94 94 Respiratory 16 16 Rate Blood Pressure 111/70 111/70 O2 Saturation 100 100 Oxygen O2 Source Room air PD MEDICAL DECISION MAKING - ED course Complexity details: reviewed old records, reviewed results, re-evaluated patient, considered differential, d/w patient ED course: 33-year-old female who has frequent episodes of stridorous breathing under stressful conditions or medication reactions and today she thinks she had a reaction to doxycycline. She administered her own EpiPen twice without improvement and is come to the emergency department. She is administered dexamethasone when she arrives here and has improvement in her symptoms. She is discharged home with a substitute prescription for Septra. Departure - Departure Disposition: 01 Home, Self Care Clinical Impression: Laryngospasms Allergic reaction Qualifiers: Encounter type: initial encounter Qualified Code(s): T78.40XA - Allergy, unspecified, initial encounter Condition: Stable Instructions: ED Drug React Adverse Other Follow-Up: Your, doctor [Other] Prescriptions: Sulfamethoxazole/Trimethoprim [Sulfamethoxazole-Tmp Ds Tablet] 1 each PO BID #14 tablet Discharge Date/Time: 05/05/19 23:06
== END 2019-05-05 23:06 | disposition home or self-care (01) ==
LOC: EDUNIT# → ED 21:05
DX: J38.5 Laryngeal spasm (principal); T36.4X5A Adverse effect of tetracyclines, initial encounter; L02.416 Cutaneous abscess of left lower limb
CPT/HCPCS: 96374; 99283

== ENCOUNTER 2019-05-09 12:14 | Emergency (ER) | payer MEDICAID ==
[2019-05-09] MEDS ORDERED: KETOROLAC 60 MG/2 ML VIAL IM STA (13:11)
[2019-05-09] MEDS ORDERED: ONDANSETRON ODT 4 MG TABLET TL STA (13:12)
--- NOTE | 2019-05-09 13:12 | ED Physician Documentation ---
PD HPI ABD PAIN - Stated complaint Stated Complaint: VOMITING/FEMALE - Chief complaint Chief Complaint: Abd Pain - History obtained from History obtained from: Patient - History of Present Illness Timing - onset: Chronic (She had a hysterectomy and left oophorectomy last year, she is also had a cholecystectomy and appendectomy. For the last year she has been having "problems" with her right ovary. She describes chronic right pelvic pain radiating up into the back. Its worse with movement and lifting and bending. Over the last month it has been worse and associated with some weight loss and decreased appetite and nausea. She denies vaginal bleeding or discharge, no fevers. 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: 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 : None HEENT: Chronic sinusitis Psych: None Musculoskeletal: None Derm: None - Past Surgical History Past Surgical History: Yes General: Appendectomy, Gastric surgery Ortho: Other /PROPERTY INSURANCE CLAIMS EXAMINER: section, Tubal ligation, Hysterectomy, Other Neuro: Craniotomy HEENT: Tonsil/Adenoidectomy - Present Medications Home Medications: Ambulatory Orders Medication Instructions Recorded Confirmed EPINEPHrine [Epipen 2-Kolby] 0.3 mg IJ ONCE PRN #1 unit 03/23/18 10/02/18 Omeprazole 20 mg PO 09/30/18 Acetaminophen 650 mg PO Q6H PRN #30 tablet 10/02/18 EPINEPHrine [Epinephrine] 0.3 mg IJ ONCE PRN #2 auto.injct 11/10/18 EPINEPHrine [Epinephrine] 0.3 mg IJ ONCE PRN #2 auto.injct 05/09/19 Oxycodone HCl/Acetaminophen 1 - 2 each PO Q6H PRN #14 tablet 05/09/19 [Percocet 5-325 mg Tablet] Sulfamethoxazole/Trimethoprim 1 each PO 05/09/19 [Sulfamethoxazole-Tmp Ds Tablet] - Allergies Allergies/Adverse Reactions: Allergies Allergy/AdvReac Type Severity Reaction Status Date / Time aspirin Allergy Severe Anaphylaxis Verified 05/05/19 21:13 hydromorphone HCl * Allergy Severe Hives Verified 05/05/19 21:13 [From Dilaudid] morphine Allergy Severe Hives Verified 05/05/19 21:13 nitrofurantoin Allergy Severe Respiratory Verified 05/05/19 21:13 macrocrystalline * [From Macrobid] acetaminophen [From Ofirmev] Allergy Hives Verified 05/05/19 21:13 amoxicillin Allergy Anaphylaxis Verified 05/05/19 21:13 doxycycline Allergy Hives Verified 05/09/19 12:30 famotidine [From Pepcid] Allergy Anaphylaxis Verified 05/05/19 21:13 fentanyl Allergy Unknown Verified 05/05/19 21:13 fluconazole Allergy Hives Verified 05/05/19 21:13 lidocaine Allergy Unknown Verified 05/05/19 21:13 meperidine HCl * Allergy Anaphylaxis Verified 05/05/19 21:13 [From Demerol] Penicillins Allergy Anaphylaxis Verified 05/05/19 21:13 prednisone Allergy Anaphylaxis Verified 05/05/19 21:13 tamsulosin HCl * Allergy Unknown Verified 05/05/19 21:13 [From Flomax] trimethoprim [From Bactrim] Allergy Hives Verified 05/09/19 12:25 wheat Allergy Hives Verified 05/05/19 21:13 hydrocodone [Hydrocodone] AdvReac Severe Emesis Verified 05/05/19 21:13 butorphanol AdvReac Intermediate Anxiety Verified 05/05/19 21:13 adhesive AdvReac Rash Verified 05/05/19 21:13 [place] And Derivatives AdvReac Nausea Verified 05/05/19 21:13 egg AdvReac Nausea Verified 05/05/19 21:13 fexofenadine AdvReac Edema Verified 05/05/19 21:13 milk AdvReac Nausea Verified 05/05/19 21:13 NSAIDS (Non-Steroidal AdvReac Cramps Verified 05/05/19 21:13 Anti-Inflamma - Social History Does the pt smoke?: No Smoking Status: Never smoker Does the pt drink ETOH?: Yes Does the pt have substance abuse?: No - Immunizations Immunizations are current?: Yes - POLST Patient has POLST: No POLST Status: Full Code PD ED PE NORMAL - Vitals Vital signs reviewed: Yes - General General: Alert and oriented X 3, No acute distress - Cardiac Cardiac: RRR, No murmur - Respiratory Respiratory: No respiratory distress, Clear bilaterally - Abdomen Abdomen: Normal bowel sounds, Soft, Other (Minimal right lower quadrant tende rness without guarding or rebound. No flank tenderness.) - Back Back: No CVA TTP, No spinal TTP - Derm Derm: Normal color, Warm and dry - Neuro Neuro: Alert and oriented X 3, Normal speech Results - Vitals Vitals: Vital Signs - 24 hr 05/09/19 12:21 Temperature 36.9 C Heart Rate 87 Respiratory 18 Rate Blood Pressure 112/78 O2 Saturation 99 Oxygen O2 Source Room air - Labs Labs: Laboratory Tests 05/09/19 05/09/19 05/09/19 12:28 13:27 13:27 WBC 8.1 RBC 4.57 Hgb 13.5 Hct 41.2 MCV 90.2 MCH 29.5 MCHC 32.8 RDW 13.2 Plt Count 295 MPV 11.9 H Neut # (Auto) 4.3 Lymph # (Auto) 2.6 [place] # (Auto) 0.5 Eos # (Auto) 0.5 Baso # (Auto) 0.1 Absolute Nucleated RBC 0.00 Nucleated RBC % 0.0 Sodium 138 Potassium 3.7 Chloride 109 Carbon Dioxide 22 Anion Gap 7.0 BUN 11 Creatinine 0.6 Estimated GFR (MDRD) 115 Glucose 95 Calcium 8.8 Total Bilirubin 0.5 AST 16 ALT 15 Alkaline Phosphatase 37 L Total Protein 7.4 Albumin 4.2 Globulin 3.2 Albumin/Globulin Ratio 1.3 Lipase 38 Urine Color LT. YELLOW Urine Clarity CLEAR Urine pH 8.0 H Ur Specific [place] 1.010 Urine Protein NEGATIVE Urine Glucose (UA) NEGATIVE Urine Ketones NEGATIVE Urine Occult Blood NEGATIVE Urine Nitrite NEGATIVE Urine Bilirubin NEGATIVE Urine Urobilinogen 0.2 (NORMAL) Ur Leukocyte Esterase NEGATIVE Ur Microscopic Review NOT INDICATED Urine Culture Comments NOT INDICATED - Rads (name of study) Pelvic sono Radiology: See rad report PD MEDICAL DECISION MAKING - ED course ED course: 33-year-old woman with worsening of some subacute to almost chronic pelvic pain on the right. She thought she had a right ovary and not a left, and ultrasound was done suggestive of actually left-sided ovarian pathology with a ruptured hemorrhagic cyst. She is hemodynamically stable and better after Toradol. 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 She also needed a refill of her epinephrine for anaphylaxis. Departure - Departure Disposition: 01 Home, Self Care Clinical Impression: Pelvic pain Condition: Good Record reviewed to determine appropriate education?: Yes Instructions: ED Pelvic Pain [facility] Prescriptions: EPINEPHrine [Epinephrine] 0.3 mg IJ ONCE PRN #2 auto.injct PRN Reason: Allergy Symptoms Oxycodone HCl/Acetaminophen [Percocet 5-325 mg Tablet] 1 - 2 each PO Q6H PRN #14 tablet PRN Reason: pain Comments: As discussed, your imaging today suggestive of a ruptured left ovarian cyst. Return for new or worsening symptoms. Take the copy of the ultrasound and labs and follow-up with your drill operator pneumatic.
[2019-05-09 13:21] LABS: BILIRUBIN,URINE NEGATIVE (NEGATIVE); GLUCOSE, URINE (UA) NEGATIVE (NEGATIVE); KETONES,URINE (UA) NEGATIVE (NEGATIVE); LEUKOCYTE ESTERASE, URINE NEGATIVE (NEGATIVE); NITRITE,URINE NEGATIVE (NEGATIVE); OCCULT BLOOD,URINE NEGATIVE (NEGATIVE); PROTEIN,URINE NEGATIVE (NEGATIVE); UROBILINOGEN,URINE 0.2 (NORMAL) E.U./dL (NORMAL)
[2019-05-09 13:23] LABS: CLARITY,URINE CLEAR (CLEAR)
[2019-05-09 13:44] LABS: BASOPHILS # (AUTO) 0.1 10^3/uL (0.0-0.1); BASOPHILS % (AUTO) 1.1 %; EOSINOPHILS # (AUTO) 0.5 10^3/uL (0.0-0.7); EOSINOPHILS % (AUTO) 6.4 %; HGB - HEMOGLOBIN 13.5 g/dL (12.0-16.0); LYMPHOCYTES # (AUTO) 2.6 10^3/uL (1.5-3.5); LYMPHOCYTES % (AUTO) 32.1 %; MEAN CORPUSCULAR HEMOGLOBIN 29.5 pg (27.0-31.0); MEAN CORPUSCULAR HGB CONC 32.8 g/dL (32.0-36.0); MEAN CORPUSCULAR VOLUME 90.2 fL (81.0-99.0); MEAN PLATELET VOLUME 11.9 fL (7.9-10.8); MONOCYTES # (AUTO) 0.5 10^3/uL (0.0-1.0); MONOCYTES % (AUTO) 6.7 %; NEUTROPHILS # (AUTO) 4.3 10^3/uL (1.5-6.6); NEUTROPHILS % (AUTO) 53.5 %; PLT - PLATELET COUNT 295 10^3/uL (130-450); RED BLOOD COUNT 4.57 10^6/uL (4.20-5.40); RED CELL DISTRIBUTION WIDTH 13.2 % (12.0-15.0); WHITE BLOOD COUNT 8.1 x10^3/uL (4.8-10.8)
[2019-05-09 13:59] LABS: ALBUMIN 4.2 g/dL (3.2-5.5); ALBUMIN/GLOBULIN RATIO 1.3 (1.0-2.2); BILIRUBIN,TOTAL 0.5 mg/dL (0.2-1.0); CALCIUM 8.8 mg/dL (8.5-10.3); CREATININE 0.6 mg/dL (0.4-1.0); TOTAL PROTEIN 7.4 g/dL (6.7-8.2)
--- NOTE | 2019-05-09 14:58 | Ultrasound Report ---
Reason: pelvic pain, R Procedure Date: 05/09/2019 Accession Number: [id number] / [id number] Procedure: US - Pelvic w/Transvag+Doppler Comp CPT Code: Final Report FULL RESULT: EXAM: PELVIC ULTRASOUND WITH DOPPLERS CLINICAL HISTORY: Pelvic pain, R. COMPARISON: None. TECHNIQUE: Realtime transabdominal imaging performed to identify the uterus and adnexa and as an overview of other pelvic structures, followed by transvaginal imaging for better assessment of the endometrium and adnexa, with static image documentation. Color flow imaging and Doppler spectral analysis was performed to evaluate blood flow to the ovaries given pelvic pain and clinical concern for ovarian torsion. FINDINGS: Status post hysterectomy September 2017. Right ovary not visualized. Left ovary measures 2.1 x 3.4 x 1.9 cm, containing a possible involuting/ruptured hemorrhagic cyst measuring 1.9 cm (noted that patient was tender to scan). Normal arterial and venous doppler flow. Free Fluid: Free fluid around the cervix containing debris. Other: None. IMPRESSION: 1. Imaging suggestive of left ovarian ruptured hemorrhagic cyst with moderate free fluid containing debris in the cul-de-sac/hemoperitoneum. 2. Status post hysterectomy. Nonvisualization right ovary. RADIA
[2019-05-09 15:22] VITALS: BP 121/77
== END 2019-05-09 15:23 | disposition home or self-care (01) ==
LOC: ED 12:14
DX: R10.2 Pelvic and perineal pain (principal)
CPT/HCPCS: 36415; 76830; 76856; 80053; 81003; 83690; 85025; 93975; 96372; 99283; Q0162; 81001; 87086

== ENCOUNTER 2019-06-16 20:45 | Outpatient (CLI) | payer MEDICAID | END 2019-06-16 20:46 | disposition critical access hospital (66) | LOC: EMS 20:45 | PROVIDERS: ATTEND Surgery | DX: T78.1XXA Other adverse food reactions, not elsewhere classified, initial encounter (principal); R06.2 Wheezing; X58.XXXA Exposure to other specified factors, initial encounter | CPT/HCPCS: A0425; A0429; A0999 ==

== ENCOUNTER 2019-06-16 21:04 | Emergency (ER) | payer MEDICAID ==
[2019-06-16] MEDS ORDERED: methylPREDNISolone SUCCINATE 125 MG/2 ML VIAL IVP STA (21:05)
[2019-06-16] MEDS ORDERED: ONDANSETRON 4 MG/2 ML VIAL IVP STA (21:05)
[2019-06-16] MEDS ORDERED: EPINEPHrine 1 MG/ML AMP IM STA (21:05)
[2019-06-16] MEDS ORDERED: SODIUM CHLORIDE 0.9% 1,000 ML IV ONE (21:06)
[2019-06-16 21:08] VITALS: BP 113/92
--- NOTE | 2019-06-16 21:09 | ED Physician Documentation ---
History of Present Illness - Stated complaint Stated Complaint: ALLERGIC RXN - History obtained from History obtained from: Patient, EMS - History of Present Illness Timing: Today (33-year-old woman with multiple drug and food allergies is maria isabel cting to some seasoning on some fries she ate. She had it this evening and started having stridorous breathing. She Already took her EpiPen at 810 also had 2 Benadryl. 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 : None HEENT: Chronic sinusitis Psych: None Musculoskeletal: None Derm: None - Past Surgical History Past Surgical History: Yes General: Appendectomy, Gastric surgery Ortho: Other /DINKEY DISPATCHER: section, Tubal ligation, Hysterectomy, Other Neuro: Craniotomy HEENT: Tonsil/Adenoidectomy - Present Medications Home Medications: Ambulatory Orders Medication Instructions Recorded Confirmed EPINEPHrine [Epipen 2-Kolby] 0.3 mg IJ ONCE PRN #1 unit 03/23/18 10/02/18 Omeprazole 20 mg PO 09/30/18 Acetaminophen 650 mg PO Q6H PRN #30 tablet 10/02/18 EPINEPHrine [Epinephrine] 0.3 mg IJ ONCE PRN #2 auto.injct 11/10/18 EPINEPHrine [Epinephrine] 0.3 mg IJ ONCE PRN #2 auto.injct 05/09/19 Oxycodone HCl/Acetaminophen 1 - 2 each PO Q6H PRN #14 tablet 05/09/19 [Percocet 5-325 mg Tablet] Sulfamethoxazole/Trimethoprim 1 each PO 05/09/19 [Sulfamethoxazole-Tmp Ds Tablet] EPINEPHrine [Epinephrine] 0.3 mg IJ ONCE PRN #2 auto.injct 06/16/19 dexAMETHasone [Decadron] 4 mg PO BIDWM #10 tablet 06/16/19 - Allergies Allergies/Adverse Reactions: Allergies Allergy/AdvReac Type Severity Reaction Status Date / Time aspirin Allergy Severe Anaphylaxis Verified 06/16/19 21:08 hydromorphone HCl * Allergy Severe Hives Verified 06/16/19 21:08 [From Dilaudid] morphine Allergy Severe Hives Verified 06/16/19 21:08 nitrofurantoin Allergy Severe Respiratory Verified 06/16/19 21:08 macrocrystalline * [From Macrobid] acetaminophen [From Ofirmev] Allergy Hives Verified 06/16/19 21:08 amoxicillin Allergy Anaphylaxis Verified 06/16/19 21:08 doxycycline Allergy Hives Verified 06/16/19 21:08 famotidine [From Pepcid] Allergy Anaphylaxis Verified 06/16/19 21:08 fentanyl Allergy Unknown Verified 06/16/19 21:08 fluconazole Allergy Hives Verified 06/16/19 21:08 lidocaine Allergy Unknown Verified 06/16/19 21:08 meperidine HCl * Allergy Anaphylaxis Verified 06/16/19 21:08 [From Demerol] Penicillins Allergy Anaphylaxis Verified 06/16/19 21:08 prednisone Allergy Anaphylaxis Verified 06/16/19 21:08 tamsulosin HCl * Allergy Unknown Verified 06/16/19 21:08 [From Flomax] trimethoprim [From Bactrim] Allergy Hives Verified 06/16/19 21:08 wheat Allergy Hives Verified 06/16/19 21:08 hydrocodone [Hydrocodone] AdvReac Severe Emesis Verified 06/16/19 21:08 butorphanol AdvReac Intermediate Anxiety Verified 06/16/19 21:08 adhesive AdvReac Rash Verified 06/16/19 21:08 [place] And Derivatives AdvReac Nausea Verified 06/16/19 21:08 egg AdvReac Nausea Verified 06/16/19 21:08 fexofenadine AdvReac Edema Verified 06/16/19 21:08 milk AdvReac Nausea Verified 06/16/19 21:08 NSAIDS (Non-Steroidal AdvReac Cramps Verified 06/16/19 21:08 Anti-Inflamma - Social History Does the pt smoke?: No Smoking Status: Never smoker Does the pt drink ETOH?: Yes Does the pt have substance abuse?: No - Immunizations Immunizations are current?: Yes - POLST Patient has POLST: No POLST Status: Full Code PD ED PE NORMAL - Vitals Vital signs reviewed: Yes - General General: Alert and oriented X 3, Other (Stridorous noisy breathing without tachypnea) - HEENT HEENT: Pharynx benign - Neck Neck: Supple, no meningeal sign, No bony TTP - Cardiac Cardiac: RRR, No murmur - Respiratory Respiratory: No respiratory distress, Other (Upper airway noise without wheezing, good air movement) - Abdomen Abdomen: Non tender - Back Back: No CVA TTP, No spinal TTP - Derm Derm: Normal color, Warm and dry, No rash - Extremities Extremities: No edema, No calf tenderness / cord - Neuro Neuro: Alert and oriented X 3, Normal speech Results - Vitals Vitals: Vital Signs - 24 hr 06/16/19 21:03 Temperature 36.2 C L Heart Rate 94 Respiratory 18 Rate Blood Pressure 113/92 H O2 Saturation 100 Oxygen O2 Source Room air PD MEDICAL DECISION MAKING - ED course ED course: 33-year-old woman with history of multiple episodes of anaphylaxis presents with an apparent episode of same, although there seem to be some sort of volitional component to her stridor i.e. if I was outside the room was in audible but as soon as I came around the curtain it would become more audible. She was administered a second dose of epinephrine and observed. I also personally placed an IV but she accidentally took it out quickly thereafter. As such Decadron was given IM. She was observed with no further stridor. Departure - Departure Disposition: 01 Home, Self Care Clinical Impression: Stridor Allergic reaction Qualifiers: Encounter type: initial encounter Qualified Code(s): T78.40XA - Allergy, unspecified, initial encounter Condition: Good Record reviewed to determine appropriate education?: Yes Instructions: ED Allergic React Food Prescriptions: dexAMETHasone [Decadron] 4 mg PO BIDWM #10 tablet EPINEPHrine [Epinephrine] 0.3 mg IJ ONCE PRN #2 auto.injct PRN Reason: Allergy Symptoms Comments: Call your doctor to arrange a follow-up appointment, make the next available appointment. In the interim, return anytime if worse or if new symptoms develop.
[2019-06-16] MEDS: SODIUM CHLORIDE 0.9% 1,000 ML IV ONE ×2 (21:11→21:42)
[2019-06-16] MEDS ORDERED: DEXAMETHASONE 10 MG/ML VIAL IM STA (21:40)
[2019-06-16] MEDS ORDERED: oxyCODONE 5 MG TABLET PO STA (22:09)
== END 2019-06-16 22:56 | disposition home or self-care (01) ==
LOC: EDUNIT# → ED 21:04
DX: T78.40XA Allergy, unspecified, initial encounter (principal); R06.1 Stridor
CPT/HCPCS: 96372; 99283; 99284; A9270

== ENCOUNTER 2019-07-22 16:56 | Emergency (ER) | payer MEDICAID ==
[2019-07-22 17:21] LABS: BILIRUBIN,URINE NEGATIVE (NEGATIVE); GLUCOSE, URINE (UA) NEGATIVE (NEGATIVE); KETONES,URINE (UA) NEGATIVE (NEGATIVE); LEUKOCYTE ESTERASE, URINE NEGATIVE (NEGATIVE); NITRITE,URINE NEGATIVE (NEGATIVE); OCCULT BLOOD,URINE NEGATIVE (NEGATIVE); PH,URINE 7.5 PH (5.0-7.5); PROTEIN,URINE NEGATIVE (NEGATIVE); UROBILINOGEN,URINE 0.2 (NORMAL) E.U./dL (NORMAL)
[2019-07-22 17:24] LABS: CLARITY,URINE CLEAR (CLEAR); HCG UR QUAL NEGATIVE
[2019-07-22] MEDS ORDERED: oxyCODONE 5 MG TABLET PO STA (17:30)
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
--- NOTE | 2019-07-22 19:12 | Ultrasound Report ---
Reason: pelvic pain, R Procedure Date: 07/22/2019 Accession Number: [id number] / [id number] Procedure: US - Pelvic w/Transvag+Doppler Comp CPT Code: Final Report FULL RESULT: EXAM: PELVIC ULTRASOUND WITH DOPPLERS CLINICAL HISTORY: Right pelvic pain status post hysterectomy. COMPARISON: PEL NON OB W/TV DOP 05/09/2019 1:32 PM TECHNIQUE: Realtime transabdominal imaging performed to identify the uterus and adnexa and as an overview of other pelvic structures, followed by transvaginal imaging for better assessment of the endometrium and adnexa, with static image documentation. Color flow imaging and Doppler spectral analysis was performed to evaluate blood flow to the ovaries given pelvic pain and clinical concern for ovarian torsion. FINDINGS: Uterus: Again status post hysterectomy. The vaginal cuff is grossly unremarkable. Right Ovary: There is a small amount of simple appearing free fluid normal right adnexa. The right ovary is again not visualized and may have been removed. Left Ovary: 2.1 x 1.8 x 3 cm, volume 6.1 cc. Normal echotexture. There is a 1.5 cm cyst within the left ovary. Arterial and venous blood flow are present. PSV 21 cm/sec. RI 0.5. Adnexa are unremarkable. Free Fluid: None. Other: None. IMPRESSION: 1. Small amount of simple appearing free fluid in the right adnexa. The right ovary is again not visualized. 2. Again status post hysterectomy. 3. Unremarkable left ovary. RADIA
[2019-07-22] MEDS ORDERED: ONDANSETRON ODT 4 MG TABLET TL STA (19:16)
[2019-07-22 19:40] VITALS: BP 114/83
[2019-07-22 23:01] LABS: TRICHOMONAS VAGINALIS DNA NEGATIVE (NEGATIVE)
== END 2019-07-22 19:46 | disposition home or self-care (01) ==
LOC: ED 16:56
DX: R10.2 Pelvic and perineal pain (principal); Z90.710 Acquired absence of both cervix and uterus; Z90.721 Acquired absence of ovaries, unilateral
CPT/HCPCS: 76830; 76856; 81003; 81025; 87491; 87591; 87661; 93975; 99283; 99284; A9270; Q0162; 81001; 87086

== ENCOUNTER 2019-09-08 14:22 | Outpatient (CLI) | payer MEDICAID | END 2019-09-08 14:23 | disposition home or self-care (01) | LOC: COV 14:22 | PROVIDERS: ATTEND Family Medicine | DX: R05 Cough (principal); R50.9 Fever, unspecified | CPT/HCPCS: 81599 ==

== ENCOUNTER 2019-09-13 14:14 | Emergency (ER) | payer MEDICAID ==
[2019-09-13] MEDS ORDERED: KETOROLAC 30 MG/ML VIAL IVP STA (14:33)
[2019-09-13] MEDS ORDERED: fentaNYL 100 MCG/2 ML VIAL IVP STA ×2 (14:33→15:13)
--- NOTE | 2019-09-13 14:34 | ED Physician Documentation ---
PD HPI ABD PAIN - Stated complaint Stated Complaint: ABD PX - Chief complaint Chief Complaint: Abd Pain - History obtained from History obtained from: Patient (33-year-old woman with history of hysterectomy, cholecystectomy, perforated ulcer, multiple C-sections, exploratory laparoscopy for endometriosis developed gradual onset severe pelvic pain after normal sex last night. She denies bleeding or discharge. She is nauseous from the pain but has not vomited.) Review of Systems Ten Systems: 10 systems reviewed and negative Constitutional: denies: Fever, Chills Cardiac: denies: Chest pain / pressure, Palpitations Respiratory: denies: Dyspnea, Cough PD PAST MEDICAL HISTORY - Past Medical History Cardiovascular: None, Other Respiratory: None, Other Neuro: Other Endocrine/Autoimmune: None GI: Ulcers SPIN[employer] CON[employer] PIPE: 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 : None HEENT: Chronic sinusitis Psych: None Musculoskeletal: None Derm: None - Past Surgical History Past Surgical History: Yes General: Appendectomy, Gastric surgery Ortho: Other /SPINNER CONCRETE PIPE: section, Tubal ligation, Hysterectomy, Other Neuro: Craniotomy HEENT: Tonsil/Adenoidectomy - Present Medications Home Medications: Ambulatory Orders Medication Instructions Recorded Confirmed EPINEPHrine [Epipen 2-Kolby] 0.3 mg IJ ONCE PRN #1 unit 03/23/18 10/02/18 Omeprazole 20 mg PO 09/30/18 Acetaminophen 650 mg PO Q6H PRN #30 tablet 10/02/18 EPINEPHrine [Epinephrine] 0.3 mg IJ ONCE PRN #2 auto.injct 11/10/18 EPINEPHrine [Epinephrine] 0.3 mg IJ ONCE PRN #2 auto.injct 05/09/19 Oxycodone HCl/Acetaminophen 1 - 2 each PO Q6H PRN #14 tablet 05/09/19 [Percocet 5-325 mg Tablet] Sulfamethoxazole/Trimethoprim 1 each PO 05/09/19 [Sulfamethoxazole-Tmp Ds Tablet] EPINEPHrine [Epinephrine] 0.3 mg IJ ONCE PRN #2 auto.injct 06/16/19 dexAMETHasone [Decadron] 4 mg PO BIDWM #10 tablet 06/16/19 Ondansetron Odt [Zofran] 4 mg TL Q6H PRN #10 tablet 07/22/19 Oxycodone HCl/Acetaminophen 1 - 2 each PO Q6H PRN #14 tablet 07/22/19 [Percocet 5-325 mg Tablet] Oxycodone HCl/Acetaminophen 1 - 2 each PO Q6H PRN #14 tablet 09/13/19 [Percocet 5-325 mg Tablet] - Allergies Allergies/Adverse Reactions: Allergies Allergy/AdvReac Type Severity Reaction Status Date / Time aspirin Allergy Severe Anaphylaxis Verified 06/16/19 21:08 hydromorphone HCl * Allergy Severe Hives Verified 06/16/19 21:08 [From Dilaudid] morphine Allergy Severe Hives Verified 06/16/19 21:08 nitrofurantoin Allergy Severe Respiratory Verified 06/16/19 21:08 macrocrystalline * [From Macrobid] acetaminophen [From Ofirmev] Allergy Hives Verified 06/16/19 21:08 amoxicillin Allergy Anaphylaxis Verified 06/16/19 21:08 doxycycline Allergy Hives Verified 06/16/19 21:08 famotidine [From Pepcid] Allergy Anaphylaxis Verified 06/16/19 21:08 fentanyl Allergy Unknown Verified 06/16/19 21:08 fluconazole Allergy Hives Verified 06/16/19 21:08 lidocaine Allergy Unknown Verified 06/16/19 21:08 meperidine HCl * Allergy Anaphylaxis Verified 06/16/19 21:08 [From Demerol] Penicillins Allergy Anaphylaxis Verified 06/16/19 21:08 prednisone Allergy Anaphylaxis Verified 06/16/19 21:08 tamsulosin HCl * Allergy Unknown Verified 06/16/19 21:08 [From Flomax] trimethoprim [From Bactrim] Allergy Hives Verified 06/16/19 21:08 wheat Allergy Hives Verified 06/16/19 21:08 hydrocodone [Hydrocodone] AdvReac Severe Emesis Verified 06/16/19 21:08 butorphanol AdvReac Intermediate Anxiety Verified 06/16/19 21:08 adhesive AdvReac Rash Verified 06/16/19 21:08 [place] And Derivatives AdvReac Nausea Verified 06/16/19 21:08 egg AdvReac Nausea Verified 06/16/19 21:08 fexofenadine AdvReac Edema Verified 06/16/19 21:08 milk AdvReac Nausea Verified 06/16/19 21:08 NSAIDS (Non-Steroidal AdvReac Cramps Verified 06/16/19 21:08 Anti-Inflamma - Social History Does the pt smoke?: No Smoking Status: Never smoker Does the pt drink ETOH?: Yes Does the pt have substance abuse?: No - Immunizations Immunizations are current?: Yes - POLST Patient has POLST: No POLST Status: Full Code PD ED PE NORMAL - Vitals Vital signs reviewed: Yes - General General: Alert and oriented X 3, Other (He appears uncomfortable) - HEENT HEENT: PERRL, EOMI - Neck Neck: Supple, no meningeal sign, No bony TTP - Cardiac Cardiac: RRR, No murmur - Respiratory Respiratory: No respiratory distress, Clear bilaterally - Abdomen Abdomen: Normal bowel sounds, Other (Quite tender in the low abdomen with some guarding and rebound, no diffuse abdominal tenderness.) - Back Back: No CVA TTP, No spinal TTP - Derm Derm: Normal color, Warm and dry - Extremities Extremities: No edema, No calf tenderness / cord - Neuro Neuro: Alert and oriented X 3, Normal speech Results - Vitals Vitals: Vital Signs - 24 hr 09/13/19 14:17 Temperature 37 C Heart Rate 89 Respiratory 18 Rate Blood Pressure 101/59 L O2 Saturation 99 Oxygen O2 Source Room air - Labs Labs: Laboratory Tests 09/13/19 09/13/19 09/13/19 14:30 14:30 14:45 WBC 9.1 RBC 4.56 Hgb 14.0 Hct 41.6 MCV 91.2 MCH 30.7 MCHC 33.7 RDW 13.2 Plt Count 291 MPV 11.6 H Neut # (Auto) 5.6 Lymph # (Auto) 2.5 [place] # (Auto) 0.5 Eos # (Auto) 0.4 Baso # (Auto) 0.1 Absolute Nucleated RBC 0.00 Nucleated RBC % 0.0 Sodium Potassium Chloride Carbon Dioxide Anion Gap BUN Creatinine Estimated GFR (MDRD) Glucose Calcium Total Bilirubin AST ALT Alkaline Phosphatase Total Protein Albumin Globulin Albumin/Globulin Ratio Lipase Urine Color YELLOW Urine Clarity CLEAR Urine pH 6.5 Ur Specific [place] 1.020 Urine Protein NEGATIVE Urine Glucose (UA) NEGATIVE Urine Ketones NEGATIVE Urine Occult Blood NEGATIVE Urine Nitrite NEGATIVE Urine Bilirubin NEGATIVE Urine Urobilinogen 0.2 (NORMAL) Ur Leukocyte Esterase NEGATIVE Ur Microscopic Review NOT INDICATED Urine Culture Comments NOT INDICATED Urine HCG, Qual NEGATIVE Urine Opiates Screen NEGATIVE Ur Oxycodone Screen POSITIVE H Urine Methadone Screen NEGATIVE Ur Propoxyphene Screen NEGATIVE Ur Barbiturates Screen NEGATIVE Ur Tricyclics Screen NEGATIVE Ur Phencyclidine Scrn NEGATIVE Ur Amphetamine Screen NEGATIVE U Methamphetamines Scrn NEGATIVE U Benzodiazepines Scrn NEGATIVE Urine Cocaine Screen NEGATIVE U Cannabinoids Screen NEGATIVE 09/13/19 14:45 WBC RBC Hgb Hct MCV MCH MCHC RDW Plt Count MPV Neut # (Auto) Lymph # (Auto) [place] # (Auto) Eos # (Auto) Baso # (Auto) Absolute Nucleated RBC Nucleated RBC % Sodium 139 Potassium 3.6 Chloride 108 Carbon Dioxide 23 Anion Gap 8.0 BUN 13 Creatinine 0.6 Estimated GFR (MDRD) 115 Glucose 108 H Calcium 9.0 Total Bilirubin 0.5 AST 16 ALT 15 Alkaline Phosphatase 33 L Total Protein 7.7 Albumin 4.4 Globulin 3.3 Albumin/Globulin Ratio 1.3 Lipase 43 Urine Color Urine Clarity Urine pH Ur Specific [place] Urine Protein Urine Glucose (UA) Urine Ketones Urine Occult Blood Urine Nitrite Urine Bilirubin Urine Urobilinogen Ur Leukocyte Esterase Ur Microscopic Review Urine Culture Comments Urine HCG, Qual Urine Opiates Screen Ur Oxycodone Screen Urine Methadone Screen Ur Propoxyphene Screen Ur Barbiturates Screen Ur Tricyclics Screen Ur Phencyclidine Scrn Ur Amphetamine Screen U Methamphetamines Scrn U Benzodiazepines Scrn Urine Cocaine Screen U Cannabinoids Screen - Rads (name of study) CT A/P Radiology: EMP read contemporaneously (Small right pelvic free fluid, mild rim- enhancing left ovarian cyst measuring 2.9 x 1.7 x 3.1 cm.) PD MEDICAL DECISION MAKING - ED course ED course: 33yo with pelvic pain after sex last night; tender on exam but better after pain meds. Found to have L ovarian cyst. Departure - Departure Disposition: 01 Home, Self Care Clinical Impression: Pelvic pain, Left ovarian cyst Condition: Good Record reviewed to determine appropriate education?: Yes Instructions: ED Cyst Ovarian Follow-Up: Antonieta Kauffman MD [Provider Admit Priv/Credential] - Within 1 week Prescriptions: Oxycodone HCl/Acetaminophen [Percocet 5-325 mg Tablet] 1 - 2 each PO Q6H PRN #14 tablet PRN Reason: pain Comments: CAT scan today shows a small left ovarian cyst. Recommend abstaining from sex until completely better. Return for new or worsening symptoms.
[2019-09-13 14:36] LABS: MUDS CUTOFF CONCENTRATIONS CUTOFF CONC BELOW:
[2019-09-13 14:37] LABS: BILIRUBIN,URINE NEGATIVE (NEGATIVE); GLUCOSE, URINE (UA) NEGATIVE (NEGATIVE); KETONES,URINE (UA) NEGATIVE (NEGATIVE); LEUKOCYTE ESTERASE, URINE NEGATIVE (NEGATIVE); NITRITE,URINE NEGATIVE (NEGATIVE); OCCULT BLOOD,URINE NEGATIVE (NEGATIVE); PH,URINE 6.5 PH (5.0-7.5); PROTEIN,URINE NEGATIVE (NEGATIVE); UROBILINOGEN,URINE 0.2 (NORMAL) E.U./dL (NORMAL)
[2019-09-13 14:39] LABS: CLARITY,URINE CLEAR (CLEAR); HCG UR QUAL NEGATIVE
[2019-09-13] MEDS ORDERED: IOVERSOL 320 100 ML VIAL IVP ONE ×2 (14:49→16:03)
[2019-09-13 14:50] LABS: BASOPHILS # (AUTO) 0.1 10^3/uL (0.0-0.1); BASOPHILS % (AUTO) 1.2 %; EOSINOPHILS # (AUTO) 0.4 10^3/uL (0.0-0.7); EOSINOPHILS % (AUTO) 4.5 %; LYMPHOCYTES # (AUTO) 2.5 10^3/uL (1.5-3.5); LYMPHOCYTES % (AUTO) 27.9 %; MEAN CORPUSCULAR HEMOGLOBIN 30.7 pg (27.0-31.0); MEAN CORPUSCULAR HGB CONC 33.7 g/dL (32.0-36.0); MEAN CORPUSCULAR VOLUME 91.2 fL (81.0-99.0); MEAN PLATELET VOLUME 11.6 fL (7.9-10.8); MONOCYTES # (AUTO) 0.5 10^3/uL (0.0-1.0); MONOCYTES % (AUTO) 5.4 %; NEUTROPHILS # (AUTO) 5.6 10^3/uL (1.5-6.6); NEUTROPHILS % (AUTO) 60.8 %; PLT - PLATELET COUNT 291 10^3/uL (130-450); RED BLOOD COUNT 4.56 10^6/uL (4.20-5.40); RED CELL DISTRIBUTION WIDTH 13.2 % (12.0-15.0); WHITE BLOOD COUNT 9.1 x10^3/uL (4.8-10.8)
[2019-09-13 14:50] LABS: AMPHETAMINE SCREEN,URINE NEGATIVE (NEGATIVE); BENZODIAZEPINES SCREEN, URINE NEGATIVE (NEGATIVE); COCAINE SCREEN URINE NEGATIVE (NEGATIVE); METHADONE SCREEN, URINE NEGATIVE (NEGATIVE); METHAMPHETAMINES SCREEN, URINE NEGATIVE (NEGATIVE); OPIATE SCREEN, URINE NEGATIVE (NEGATIVE); OXYCODONE SCREEN, URINE POSITIVE (NEGATIVE); PROPOXYPHENE SCREEN, URINE NEGATIVE (NEGATIVE); TRICYCLIC ANTIDEPRESSANT,URINE NEGATIVE (NEGATIVE)
[2019-09-13 15:03] LABS: ALBUMIN 4.4 g/dL (3.2-5.5); ALBUMIN/GLOBULIN RATIO 1.3 (1.0-2.2); BILIRUBIN,TOTAL 0.5 mg/dL (0.2-1.0); CREATININE 0.6 mg/dL (0.4-1.0); TOTAL PROTEIN 7.7 g/dL (6.7-8.2)
[2019-09-13] MEDS ORDERED: LORazepam 2 MG/ML VIAL IVP STA (15:14)
[2019-09-13] MEDS ORDERED: diphenhydrAMINE INJ 50 MG/ML VIAL IVP STA (15:28)
--- NOTE | 2019-09-13 16:20 | CT Report ---
Reason: abd pain Procedure Date: 09/13/2019 Accession Number: [id number] / [id number] Procedure: CT - Abdomen/Pelvis W CPT Code: Final Report FULL RESULT: EXAM: CT ABDOMEN AND PELVIS EXAM DATE: 09/13/2019 04:01 PM. CLINICAL HISTORY: Abdominal pain. Lower abdominal pain. History of hysterectomy. COMPARISONS: ABDOMEN/PELVIS W/ 10/27/2017 5:00 PM. TECHNIQUE: Routine helical CT imaging was performed through the abdomen and pelvis. IV contrast: 80 cc Optiray 320. Enteric contrast: No. Reconstructions: Coronal and sagittal. In accordance with CT protocol optimization, one or more of the following dose reduction techniques were utilized for this exam: automated exposure control, adjustment of mA and/or KV based on patient size, or use of iterative reconstructive technique. FINDINGS: Lung Bases: Unremarkable. Heart size is normal. Negative for pericardial thickening or pericardial fluid. Liver: Indistinct hypodensity inferior aspect posterior segment right liver lobe. Possible 3 mm cyst medial segment left liver lobe. Gallbladder/Bile Ducts: Cholecystectomy with gallbladder and surgical clips. Common bile caliber 4 mm. Spleen: Normal. Pancreas: Normal. Adrenal Glands: Normal. Kidneys: Posterior inferior left kidney 9 mm cortical cyst. Posterior mid to inferior left kidney fluid density 1 cm cortical cyst. Indeterminate hypodensity 9 mm posterior superior left kidney. Likely multiple 6 mm or less cysts anterior inferior right kidney. Anterior inferior left kidney two adjacent 2 mm nonobstructing calyceal stones (image 36 series 3). Peritoneal Cavity/Bowel: Normal. No free fluid, free air or adenopathy. No masses or acute inflammatory process. Negative for appendicitis. Terminal ileum is unremarkable. Fecalization distal ileum. Pelvic Organs: Bladder is negative for focal mass. Left ovary rim-enhancing 2.9 x 1.7 x 3.1 cm probable corpus luteum cyst. Small right adnexal fluid. Negative for abnormal right adnexal mass. Uterus is absent. Vasculature: No aneurysms or other significant abnormality. Bones: No significant abnormality. Other: None. IMPRESSION: 1. Negative for hydronephrosis, hydroureter or obstructing ureteral stone. 2. Small right pelvic cul-de-sac free fluid. 3. Probable rim-enhancing left ovary 2.9 x 1.7 x 3.1 cm corpus luteum cyst. 4. Two Adjacent 2 mm nonobstructing anterior inferior left kidney calyceal stones. 5. Multiple bilateral kidney cysts. Differential considerations include polycystic kidneys. RADIA
[2019-09-13 16:43] VITALS: BP 112/69
== END 2019-09-13 16:43 | disposition home or self-care (01) ==
LOC: ED 14:14
DX: R10.2 Pelvic and perineal pain (principal); N83.202 Unspecified ovarian cyst, left side; N20.0 Calculus of kidney; N28.1 Cyst of kidney, acquired
CPT/HCPCS: 36415; 74177; 80053; 80306; 81003; 81025; 83690; 85025; 96374; 96375; 99284; 99285; J1200; J2060; Q9967; 81001; 87086

== ENCOUNTER 2019-09-19 22:40 | Outpatient (CLI) | payer MEDICAID | END 2019-09-19 22:41 | disposition critical access hospital (66) | LOC: EMS 22:40 | PROVIDERS: ATTEND Surgery | DX: R06.02 Shortness of breath (principal) | CPT/HCPCS: A0425; A0429; A0999 ==

== ENCOUNTER 2019-09-19 22:50 | Emergency (ER) | payer MEDICAID ==
[2019-09-19] MEDS ORDERED: methylPREDNISolone SUCCINATE 125 MG/2 ML VIAL IVP STA (23:02)
[2019-09-19] MEDS ORDERED: LORazepam 2 MG/ML VIAL IVP STA (23:02)
--- NOTE | 2019-09-19 23:16 | ED Physician Documentation ---
History of Present Illness - Stated complaint Stated Complaint: SOA - Chief complaint Chief Complaint: Allergic Rx - History obtained from History obtained from: Patient, EMS - Additonal information Additional information: Patient comes emergency department complaining of throat and chest tightness and difficulty breathing after eating dinner around 8:00 this evening. Patient states that about 30 minutes after eating, she began to notice symptoms typical of an allergic reaction her for her, which include a feeling of warmth and itching spreading of her chest into her neck and a reddish coloration of the skin. Patient states that she then began to have a tight sore feeling inside of her throat and also a tight feeling in her chest. Patient states that she usually begins to become anxious when she feels the symptoms, and that she began to breathe hard. She had taken to 25 mg tablets of Benadryl when she first began to feel the symptoms coming on, and then gave herself a shot of epineph rine with her EpiPen. She states her significant other called EMS, and when they came, the patient still had some wheezing and so she was given another dose of epinephrine. After this, the patient's symptoms did improve quite a bit. Her initial oxygen saturation was in the 80s on room air, but she did improve to the upper 90s to 100% on room air after the second epinephrine. Patient states that she is not sure what was in the dinner that she ate, though she does have many food allergies. She states she is generally very careful about what she eats because of this. She does note that she has had to be intubated a few times because of her allergic reactions. She states she is feeling much better now, and that though her heart is racing a little after the epinephrine's and an albuterol treatment she was given in route, she feels that her chest is not as tight as it was. She denies any difficulty swallowing. She states her throat is still slightly sore, but that this generally persists for a number of hours after an allergic reaction. Patient states that she did have an upper respiratory infection a week or 2 ago and was tested on September 07 for covid-19, and found to be negative. She states her symptoms have been steadily improving since. No fevers. No other complaints at this time. Review of Systems Ten Systems: 10 systems reviewed and negative Constitutional: reports: Reviewed and negative Eyes: reports: Reviewed and negative Ears: reports: Reviewed and negative Nose: reports: Reviewed and negative Throat: reports: Sore throat Cardiac: reports: Chest pain / pressure Respiratory: reports: Dyspnea GI: reports: Reviewed and negative : reports: Reviewed and negative Skin: reports: Reviewed and negative Musculoskeletal: reports: Reviewed and negative Neurologic: reports: Reviewed and negative Psychiatric: reports: Reviewed and negative Endocrine: reports: Reviewed and negative Immunocompromised: reports: Reviewed and negative PD PAST MEDICAL HISTORY - Past Medical History Cardiovascular: None, Other Respiratory: None, Other Neuro: Other Endocrine/Autoimmune: None GI: Ulcers 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 : None HEENT: Chronic sinusitis Psych: None Musculoskeletal: None Derm: None - Past Surgical History Past Surgical History: Yes General: Appendectomy, Gastric surgery Ortho: Other /ASSISTANT DIRECTOR OF ADMISSIONS: section, Tubal ligation, Hysterectomy, Other Neuro: Craniotomy HEENT: Tonsil/Adenoidectomy - Present Medications Home Medications: Ambulatory Orders Medication Instructions Recorded Confirmed EPINEPHrine [Epipen 2-Kolby] 0.3 mg IJ ONCE PRN #1 unit 03/23/18 10/02/18 Omeprazole 20 mg PO 09/30/18 Acetaminophen 650 mg PO Q6H PRN #30 tablet 10/02/18 EPINEPHrine [Epinephrine] 0.3 mg IJ ONCE PRN #2 auto.injct 11/10/18 EPINEPHrine [Epinephrine] 0.3 mg IJ ONCE PRN #2 auto.injct 05/09/19 Oxycodone HCl/Acetaminophen 1 - 2 each PO Q6H PRN #14 tablet 05/09/19 [Percocet 5-325 mg Tablet] Sulfamethoxazole/Trimethoprim 1 each PO 05/09/19 [Sulfamethoxazole-Tmp Ds Tablet] EPINEPHrine [Epinephrine] 0.3 mg IJ ONCE PRN #2 auto.injct 06/16/19 dexAMETHasone [Decadron] 4 mg PO BIDWM #10 tablet 06/16/19 Ondansetron Odt [Zofran] 4 mg TL Q6H PRN #10 tablet 07/22/19 Oxycodone HCl/Acetaminophen 1 - 2 each PO Q6H PRN #14 tablet 07/22/19 [Percocet 5-325 mg Tablet] Epinephrine [Auvi-Q] 0.3 mg IJ ONCE PRN #2 auto.injct 09/13/19 Oxycodone HCl/Acetaminophen 1 - 2 each PO Q6H PRN #14 tablet 09/13/19 [Percocet 5-325 mg Tablet] EPINEPHrine [Epinephrine] 0.3 mg IJ ONCE PRN #1 auto.injct 09/14/19 Oxycodone HCl/Acetaminophen 1 - 2 each PO Q6H PRN #14 tablet 09/14/19 [Percocet 5-325 mg Tablet] Methylprednisolone [Medrol] 8 mg PO DAILY 3 Days #3 tablet 09/19/19 Sucralfate 1 gm PO AC 30 Days #90 tablet 09/19/19 EPINEPHrine [Epinephrine] 0.3 mg IJ ONCE PRN #1 auto.injct NS 09/20/19 - Allergies Allergies/Adverse Reactions: Allergies Allergy/AdvReac Type Severity Reaction Status Date / Time aspirin Allergy Severe Anaphylaxis Verified 09/19/19 23:01 hydromorphone HCl * Allergy Severe Hives Verified 09/19/19 23:01 [From Dilaudid] morphine Allergy Severe Hives Verified 09/19/19 23:01 nitrofurantoin Allergy Severe Respiratory Verified 09/19/19 23:01 macrocrystalline * [From Macrobid] acetaminophen [From Ofirmev] Allergy Hives Verified 09/19/19 23:01 amoxicillin Allergy Anaphylaxis Verified 09/19/19 23:01 doxycycline Allergy Hives Verified 09/19/19 23:01 famotidine [From Pepcid] Allergy Anaphylaxis Verified 09/19/19 23:01 fentanyl Allergy Unknown Verified 09/19/19 23:01 fluconazole Allergy Hives Verified 09/19/19 23:01 lidocaine Allergy Unknown Verified 09/19/19 23:01 meperidine HCl * Allergy Anaphylaxis Verified 09/19/19 23:01 [From Demerol] Penicillins Allergy Anaphylaxis Verified 09/19/19 23:01 prednisone Allergy Anaphylaxis Verified 09/19/19 23:01 tamsulosin HCl * Allergy Unknown Verified 09/19/19 23:01 [From Flomax] trimethoprim [From Bactrim] Allergy Hives Verified 09/19/19 23:01 wheat Allergy Hives Verified 09/19/19 23:01 hydrocodone [Hydrocodone] AdvReac Severe Emesis Verified 09/19/19 23:01 butorphanol AdvReac Intermediate Anxiety Verified 09/19/19 23:01 adhesive AdvReac Rash Verified 09/19/19 23:01 [place] And Derivatives AdvReac Nausea Verified 09/19/19 23:01 egg AdvReac Nausea Verified 09/19/19 23:01 fexofenadine AdvReac Edema Verified 09/19/19 23:01 milk AdvReac Nausea Verified 09/19/19 23:01 NSAIDS (Non-Steroidal AdvReac Cramps Verified 09/19/19 23:01 Anti-Inflamma - Social History Does the pt smoke?: No Smoking Status: Never smoker Does the pt drink ETOH?: Yes Does the pt have substance abuse?: No - Immunizations Immunizations are current?: Yes - POLST Patient has POLST: No POLST Status: Full Code PD ED PE NORMAL - Vitals Vital signs reviewed: Yes - General General: Alert and oriented X 3, No acute distress - HEENT HEENT: Atraumatic, PERRL, EOMI, Moist mucous membranes, Pharynx benign - Neck Neck: Supple, no meningeal sign, No adenopathy - Cardiac Cardiac: RRR, No murmur - Respiratory Respiratory: No respiratory distress, Clear bilaterally - Abdomen Abdomen: Soft, Non tender, Non distended - Derm Derm: Normal color, Warm and dry, No rash - Extremities Extremities: No deformity, Normal ROM s pain, No edema - Neuro Neuro: Alert and oriented X 3, asset management lead 2-12 intact, No motor deficit, No sensory deficit, Normal speech - Psych Psych: Normal mood, Normal affect Results - Vitals Vitals: Vital Signs - 24 hr 09/19/19 09/20/19 22:50 00:12 Temperature 37.1 C 36.8 C Heart Rate 121 H 74 Respiratory 28 H 18 Rate Blood Pressure 122/86 H 103/76 O2 Saturation 100 99 Oxygen O2 Source Room air PD MEDICAL DECISION MAKING - ED course Complexity details: reviewed old records, re-evaluated patient, considered differential, d/w patient ED course: The patient was overall doing quite a bit better, and did not have any worrisome signs for it at this time on examination. She was given IV Solu-Medrol and half milligram of Ativan IV, as well. The patient was observed for about 1 hour in the emergency department after which she reported feeling much, much better. Patient stated she felt well enough to go home and I felt she was stable to do so. Patient has 1 more EpiPen and I have prescribed her a backup, as well. I have also refilled her Carafate and given her a short course of Medrol Dosepak. We have discussed home management of the symptoms, as well as the indications for return. Departure - Departure Disposition: 01 Home, Self Care Clinical Impression: Allergic reaction Condition: Good Instructions: ED Allergic Reaction General Other Prescriptions: EPINEPHrine [Epinephrine] 0.3 mg IJ ONCE PRN #1 auto.injct NS PRN Reason: Anaphylaxis Methylprednisolone [Medrol] 8 mg PO DAILY 3 Days #3 tablet Sucralfate 1 gm PO AC 30 Days #90 tablet Discharge Date/Time: 09/20/19 00:12
[2019-09-20 00:13] VITALS: BP 103/76
== END 2019-09-20 00:12 | disposition home or self-care (01) ==
LOC: EDUNIT# → ED 22:50
DX: T78.40XA Allergy, unspecified, initial encounter (principal); X58.XXXA Exposure to other specified factors, initial encounter
CPT/HCPCS: 96374; 99284; J2060

== ENCOUNTER 2019-09-21 07:28 | Outpatient (CLI) | payer MEDICAID ==
--- NOTE | 2019-09-21 08:56 | Ultrasound Report ---
Reason: CYSTIC KIDNEY DISEASE,ABD PAIN Procedure Date: 09/21/2019 Accession Number: [id number] / [id number] Procedure: US - Retroperitoneal CPT Code: Final Report FULL RESULT: EXAM: RENAL ULTRASOUND EXAM DATE: 09/21/2019 08:17 AM. CLINICAL HISTORY: CYSTIC KIDNEY DISEASE, ABD PAIN. COMPARISON: ABDOMEN/PELVIS W/ 09/13/2019 3:45 PM. TECHNIQUE: Real-time scanning was performed with static images obtained. FINDINGS: Right Kidney: 11.4 cm. Normal echotexture. No hydronephrosis. There simple appearing cysts measuring up to 6 mm at the midpole and 9 mm at the lower pole. No calculi. Left Kidney: 10.5 cm. Normal echotexture. No hydronephrosis. There are simple appearing cysts measuring up to 11 mm at the upper pole medially, 9 mm at the lower pole laterally, and 11 mm at the mid to lower pole laterally. No calculi. Bladder: Bilateral jets seen. The prevoid bladder volume was 86 cc. The postvoid bladder volume was empty. IMPRESSION: 1. No hydronephrosis. 2. Multiple bilateral renal cysts. RADIA
== END 2019-09-21 07:29 | disposition home or self-care (01) ==
LOC: DI 07:28
PROVIDERS: ATTEND Obstetrics & Gynecology
DX: Q61.9 Cystic kidney disease, unspecified (principal); R10.9 Unspecified abdominal pain
CPT/HCPCS: 76770

== ENCOUNTER 2019-10-13 11:45 | Outpatient (CLI) | payer MEDICAID ==
--- NOTE | 2019-10-14 04:53 | XRAY Report ---
Reason: RIGHT RING FINGER PAIN Procedure Date: 10/13/2019 Accession Number: [id number] / [id number] Procedure: WCP - Finger(s) RT CPT Code: Final Report FULL RESULT: EXAM: RIGHT FOURTH DIGIT RADIOGRAPHY EXAM DATE: 10/13/2019 11:45 AM. CLINICAL HISTORY: RIGHT RING FINGER PAIN. COMPARISON: None. TECHNIQUE: 3 views. FINDINGS: Bones: Normal. No fracture or bone lesion. Joints: Normal. No subluxations. Soft Tissues: Normal. No soft tissue swelling. IMPRESSION: Normal digit radiography. RADIA
== END 2019-10-13 23:59 | disposition home or self-care (01) ==
LOC: DI.WCP 11:45
PROVIDERS: ATTEND Family Medicine
DX: M79.644 Pain in right finger(s) (principal)
CPT/HCPCS: 73140

== ENCOUNTER 2019-12-09 08:00 | Outpatient (CLI) | payer MEDICAID ==
[2019-12-09 18:38] LABS: CANDIDA GROUP DNA NEGATIVE (NEGATIVE); CANDIDA KRUSEI DNA NEGATIVE (NEGATIVE); TRICHOMONAS VAGINALIS DNA NEGATIVE (NEGATIVE)
[2019-12-09 19:06] LABS: TRICHOMONAS VAGINALIS DNA NEGATIVE (NEGATIVE)
== END 2019-12-09 23:59 | disposition home or self-care (01) ==
LOC: LAB.R 08:00
PROVIDERS: ATTEND Advanced Practice Midwife
DX: N76.0 Acute vaginitis (principal)
CPT/HCPCS: 87491; 87591; 87661; 87801

== ENCOUNTER 2019-12-12 14:00 | Outpatient (CLI) | payer MEDICAID ==
--- NOTE | 2019-12-13 08:17 | Ultrasound Report ---
PROCEDURE: Retroperitoneal INDICATIONS: POLYSYSTIC KIDNEY TECHNIQUE: Real-time scanning was performed of the retroperitoneal organs, with image documentation. COMPARISON: Renal ultrasound 09/11/2019. FINDINGS: Kidneys: Kidneys are normal in size. Right kidney measures 12.0 cm long; left kidney measures 10.7 cm long. Right renal cortical thickness is 1.0 cm; left renal cortical thickness is 1.2 cm. No bobby d masses, hydronephrosis, or nephrolithiasis. Multiple bilateral renal cysts are present. The larges t on the right is in the superior pole measuring 8 x 7 x 7 mm. The largest on the left is within the inferior pole measuring 12 x 11 x 10 mm. There is a new right inferior pole cyst compared to prior ex am. Bladder: Prevoid volume 97 cc. Postvoid residual 2 cm. Both ureteral jets are identified. No stones o r mass lesions are identified within the bladder. IMPRESSION: 1. Bilateral renal cysts as described above. Reviewed by: Diamond Mora MD on 12/13/2019 8:16 AM PDT Approved by: Diamond Mora MD on 12/13/2019 8:16 AM PDT Station ID: [id number]
== END 2019-12-12 14:01 | disposition home or self-care (01) ==
LOC: DI 14:00
PROVIDERS: ATTEND Internal Medicine
DX: Q61.2 Polycystic kidney, adult type (principal); N76.0 Acute vaginitis
CPT/HCPCS: 76770; 81599; 86695; 86696; 86803; 87340; 87389

== ENCOUNTER 2019-12-12 14:09 | Outpatient (CLI) | payer MEDICAID ==
[2019-12-14 10:09] LABS: HIV AG/AB 4TH GEN NON-REACTIVE (NON-REACTIVE)
[2019-12-14 13:05] LABS: HEPATITIS C ANTIBODY NON-REACTIVE (NON-REACTIVE)
[2019-12-14 13:06] LABS: HEPATITIS B SURFACE ANTIGEN NON-REACTIVE (NON-REACTIVE)
[2019-12-15 11:34] LABS: HSV 2 IGG TYPE SPECIFIC AB <0.90 index
== END 2019-12-12 14:10 | disposition home or self-care (01) ==
LOC: LAB 14:09
PROVIDERS: ATTEND Advanced Practice Midwife
DX: N76.0 Acute vaginitis (principal)
CPT/HCPCS: 81599; 86695; 86696; 86803; 87340; 87389

== ENCOUNTER 2020-03-10 21:42 | Emergency (ER) | payer OTHER, MEDICAID ==
[2020-03-10 22:13] VITALS: BP 124/80
--- NOTE | 2020-03-10 22:39 | ED Physician Documentation ---
PD HPI UPPER EXT INJURY - Stated complaint Stated Complaint: LT WRIST/FINGER INJ - Chief complaint Chief Complaint: Abd Pain - History obtained from History obtained from: Patient - History of Present Illness Location: Left, Wrist Type of injury: Other (see narrative below) Where injury occurred: Work Timing - onset: Enter time (20:15), Today Timing - details: Abrupt onset Improved by: Rest Worsened by: Moving, Palpating Associated symptoms: No: Weakness, Numbness, Swelling Similar symptoms before: Has not had sx before - Additonal information Additional information: patient is right hand dominant. She c/o sudden onset left wrist pain, predominantly lateral aspect, at 8:15 PM tonight when she was at work and was starting to lift a heavy object. She had popping sensation and sudden onset of this pain which is worse with movement and radiates to fingers and up the LUE Review of Systems Musculoskeletal: reports: Extremity pain, Joint pain. 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 : Other HEENT: Chronic sinusitis Psych: Depression Musculoskeletal: None Derm: None - Past Surgical History Past Surgical History: Yes General: Cholecystectomy, Appendectomy, Gastric surgery Ortho: Other /SUBSTATION WIREMAN: section, Tubal ligation, Hysterectomy, Other Neuro: Craniotomy HEENT: Tonsil/Adenoidectomy - Present Medications Home Medications: Ambulatory Orders Medication Instructions Recorded Confirmed Omeprazole 20 mg PO BID 09/30/18 02/16/20 EPINEPHrine [Epinephrine] 0.3 mg IJ ONCE PRN #2 auto.injct 05/09/19 02/16/20 Sucralfate 1 gm PO AC 30 Days #90 tablet 09/19/19 02/16/20 Acetaminophen [Tylenol Extra 1,000 mg PO Q6HR PRN MDD 4000mg 02/16/20 02/16/20 Strength] Albuterol Sulfate [Proair Hfa 1 - 2 puffs INH Q4H PRN 02/16/20 02/16/20 Inhaler] Ondansetron [Ondansetron Odt] 4 mg PO BID 02/16/20 02/16/20 Ranitidine 150 mg PO BID 02/16/20 02/16/20 diphenhydrAMINE [Benadryl] 25 - 50 mg PO PRN PRN 02/16/20 02/16/20 - Allergies Allergies/Adverse Reactions: Allergies Allergy/AdvReac Type Severity Reaction Status Date / Time aspirin Allergy Severe Anaphylaxis Verified 03/10/20 21:52 hydromorphone HCl * Allergy Severe Hives Verified 03/10/20 21:52 [From Dilaudid] morphine Allergy Severe Hives Verified 03/10/20 21:52 nitrofurantoin Allergy Severe Respiratory Verified 03/10/20 21:52 macrocrystalline * [From Macrobid] acetaminophen [From Ofirmev] Allergy Hives Verified 03/10/20 21:52 amoxicillin Allergy Anaphylaxis Verified 03/10/20 21:52 doxycycline Allergy Hives Verified 03/10/20 21:52 famotidine [From Pepcid] Allergy Anaphylaxis Verified 03/10/20 21:52 fentanyl Allergy Unknown Verified 03/10/20 21:52 fluconazole Allergy Hives Verified 03/10/20 21:52 lidocaine Allergy Unknown Verified 03/10/20 21:52 meperidine HCl * Allergy Anaphylaxis Verified 03/10/20 21:52 [From Demerol] Penicillins Allergy Anaphylaxis Verified 03/10/20 21:52 prednisone Allergy Anaphylaxis Verified 03/10/20 21:52 tamsulosin HCl * Allergy Unknown Verified 03/10/20 21:52 [From Flomax] trimethoprim [From Bactrim] Allergy Hives Verified 03/10/20 21:52 wheat Allergy Hives Verified 03/10/20 21:52 hydrocodone [Hydrocodone] AdvReac Severe Emesis Verified 03/10/20 21:52 butorphanol AdvReac Intermediate Anxiety Verified 03/10/20 21:52 adhesive AdvReac Rash Verified 03/10/20 21:52 [place] And Derivatives AdvReac Nausea Verified 03/10/20 21:52 egg AdvReac Nausea Verified 03/10/20 21:52 fexofenadine AdvReac Edema Verified 03/10/20 21:52 milk AdvReac Nausea Verified 03/10/20 21:52 NSAIDS (Non-Steroidal AdvReac Cramps Verified 03/10/20 21:52 Anti-Inflamma - Social History Does the pt smoke?: No Smoking Status: Never smoker Does the pt drink ETOH?: Yes Does the pt have substance abuse?: No - Immunizations Immunizations are current?: Yes - POLST Patient has POLST: No POLST Status: Full Code PD ED PE NORMAL - Vitals Vital signs reviewed: Yes - General General: Alert and oriented X 3, No acute distress, Well developed/nourished - Derm Derm: Normal color, Warm and dry - Extremities Extremities: No deformity, No edema - Neuro Neuro: No motor deficit (5/5 left ui designer and finger extension. LTS intact in left hand, digits. TTP lateral (radial) aspect of left wrist) Results - Vitals Vitals: Vital Signs - 24 hr 03/10/20 21:50 Heart Rate 89 Respiratory 16 Rate Blood Pressure 124/80 O2 Saturation 100 Oxygen O2 Source Room air - Rads (name of study) left wrist xrays Radiology: Prelim report reviewed, See rad report Procedures - Splint (location) Upper extremity left Splint applied by: Tech Type of splint: Prefab velcro wrist, Thumb spica Other: Patient tolerated well, No complications, Neurovascular intact PD MEDICAL DECISION MAKING - ED course Complexity details: reviewed results, re-evaluated patient, considered differential, d/w patient Departure - Departure Disposition: 01 Home, Self Care Clinical Impression: Left wrist sprain Condition: Good Instructions: ED Splint Care TUSHAR Parker Sprain Wrist Forms: Activity restrictions Discharge Date/Time: 03/11/20 00:16
[2020-03-10] MEDS ORDERED: IBUPROFEN 600 MG TABLET PO STA (23:38)
--- NOTE | 2020-03-11 07:27 | XRAY Report ---
PROCEDURE: Wrist 4 View LT INDICATIONS: Left wrist injury, tenderness TECHNIQUE: 4 views of the wrist were acquired. COMPARISON: None FINDINGS: Bones: No fractures or dislocations. No suspicious bony lesions. Scaphoid view: Scaphoid intact. Normal scapholunate interval. Soft tissues: No suspicious soft tissue calcifications. IMPRESSION: Normal left wrist radiograph. Reviewed by: Jason Calvin MD on 03/11/2020 7:25 AM PDT Approved by: Jason Calvin MD on 03/11/2020 7:25 AM PDT Station ID: [id number]
== END 2020-03-11 00:16 | disposition home or self-care (01) ==
LOC: ED 21:42
DX: S63.502A Unspecified sprain of left wrist, initial encounter (principal); X50.0XXA Overexertion from strenuous movement or load, initial encounter; Y93.89 Activity, other specified; Y99.0 Civilian activity done for income or pay
CPT/HCPCS: 73110; 99282; 99283; A9270

== ENCOUNTER 2020-04-12 19:10 | Emergency (ER) | payer MEDICAID, OTHER ==
[2020-04-12] MEDS ORDERED: BACITRACIN ZINC OINT 1 PACKET TOP STA (19:23)
[2020-04-12] MEDS ORDERED: TETANUS/DIPHTHERIA/PERTUSSIS 0.5 ML SYRINGE IM ONE (19:39)
--- NOTE | 2020-04-12 19:47 | ED Physician Documentation ---
History of Present Illness - Stated complaint Stated Complaint: FINGER LAC - Chief complaint Chief Complaint: Laceration - History obtained from History obtained from: Patient - History of Present Illness Timing: Prior to arrival - Additonal information Additional information: 34-year-old female presents the emergency department for a left thumb distal tip laceration. She reports that this evening she was chopping carrots the very distal tip of her finger was lacerated by the knife. Unknown last tetanus. Patient does have an allergy to lidocaine. 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 : Other HEENT: Chronic sinusitis Psych: Depression Musculoskeletal: None Derm: None - Past Surgical History Past Surgical History: Yes General: Cholecystectomy, Appendectomy, Gastric surgery Ortho: Other /GULLET SLITTER: section, Tubal ligation, Hysterectomy, Other Neuro: Craniotomy HEENT: Tonsil/Adenoidectomy - Present Medications Home Medications: Ambulatory Orders Medication Instructions Recorded Confirmed Omeprazole 20 mg PO BID 09/30/18 02/16/20 EPINEPHrine [Epinephrine] 0.3 mg IJ ONCE PRN #2 auto.injct 05/09/19 02/16/20 Sucralfate 1 gm PO AC 30 Days #90 tablet 09/19/19 02/16/20 Acetaminophen [Tylenol Extra 1,000 mg PO Q6HR PRN MDD 4000mg 02/16/20 02/16/20 Strength] Albuterol Sulfate [Proair Hfa 1 - 2 puffs INH Q4H PRN 02/16/20 02/16/20 Inhaler] Ondansetron [Ondansetron Odt] 4 mg PO BID 02/16/20 02/16/20 Ranitidine 150 mg PO BID 02/16/20 02/16/20 diphenhydrAMINE [Benadryl] 25 - 50 mg PO PRN PRN 02/16/20 02/16/20 - Allergies Allergies/Adverse Reactions: Allergies Allergy/AdvReac Type Severity Reaction Status Date / Time aspirin Allergy Severe Anaphylaxis Verified 04/12/20 19:19 hydromorphone HCl * Allergy Severe Hives Verified 04/12/20 19:19 [From Dilaudid] morphine Allergy Severe Hives Verified 04/12/20 19:19 nitrofurantoin Allergy Severe Respiratory Verified 04/12/20 19:19 macrocrystalline * [From Macrobid] acetaminophen [From Ofirmev] Allergy Hives Verified 04/12/20 19:19 amoxicillin Allergy Anaphylaxis Verified 04/12/20 19:19 doxycycline Allergy Hives Verified 04/12/20 19:19 famotidine [From Pepcid] Allergy Anaphylaxis Verified 04/12/20 19:19 fentanyl Allergy Unknown Verified 04/12/20 19:19 fluconazole Allergy Hives Verified 04/12/20 19:19 lidocaine Allergy Unknown Verified 04/12/20 19:19 meperidine HCl * Allergy Anaphylaxis Verified 04/12/20 19:19 [From Demerol] Penicillins Allergy Anaphylaxis Verified 04/12/20 19:19 prednisone Allergy Anaphylaxis Verified 04/12/20 19:19 tamsulosin HCl * Allergy Unknown Verified 04/12/20 19:19 [From Flomax] trimethoprim [From Bactrim] Allergy Hives Verified 04/12/20 19:19 wheat Allergy Hives Verified 04/12/20 19:19 hydrocodone [Hydrocodone] AdvReac Severe Emesis Verified 04/12/20 19:19 butorphanol AdvReac Intermediate Anxiety Verified 04/12/20 19:19 adhesive AdvReac Rash Verified 04/12/20 19:19 [place] And Derivatives AdvReac Nausea Verified 04/12/20 19:19 egg AdvReac Nausea Verified 04/12/20 19:19 fexofenadine AdvReac Edema Verified 04/12/20 19:19 milk AdvReac Nausea Verified 04/12/20 19:19 NSAIDS (Non-Steroidal AdvReac Cramps Verified 04/12/20 19:19 Anti-Inflamma - Social History Does the pt smoke?: No Smoking Status: Never smoker Does the pt drink ETOH?: Yes Does the pt have substance abuse?: No - Immunizations Immunizations are current?: Yes - POLST Patient has POLST: No POLST Status: Full Code PD ED PE EXPANDED - General General: Alert, Anxious, In Pain - Extremities Extremities: Left finger(s) (Left thumb 0.25 cm distal tip skin laceration/avulsion) ARTURO UE/Hands Visual: 1 - laceration Results - Vitals Vitals: Vital Signs - 24 hr 04/12/20 19:15 Temperature 36.6 C Heart Rate 98 Respiratory 18 Rate Blood Pressure 124/87 H O2 Saturation 99 Oxygen O2 Source Room air PD MEDICAL DECISION MAKING - ED course Complexity details: reviewed results, re-evaluated patient, d/w patient ED course: 34-year-old female presents to the emergency department for a left thumb distal tip avulsion/laceration that was sustained this evening. Unfortunately it is not and amenable to primary closure with suture. Instead it will have to heal through secondary intention. Routine wound care including the use of antibiotic ointment discussed. Patient will had her tetanus updated today in the emerge ncy department Departure - Departure Disposition: 01 Home, Self Care Clinical Impression: Finger laceration Qualifiers: Encounter type: initial encounter Finger: thumb Damage to nail status: without damage Foreign body presence: without foreign body Laterality: left Qualified Code(s): S61.012A - Laceration without foreign body of left thumb without damage to nail, initial encounter Condition: Stable Record reviewed to determine appropriate education?: Yes Comments: Unfortunately the tip laceration of your left thumb cannot be closed with suture. In 24 hours you may remove the dressing. Gently wash with warm soap and water, apply antibiotic ointment and then the nonstick bandage and gauze. It is likely that this will take 1 to 2 weeks to heal fully. Her tetanus was updated today and is good for the next 7 to 10 years. If you develop thumb swelling, have redness milky drainage fevers or concerns of infection please return to the ER
[2020-04-12 20:12] VITALS: BP 119/81
== END 2020-04-12 20:12 | disposition home or self-care (01) ==
LOC: ED 19:10
DX: S61.012A Laceration without foreign body of left thumb without damage to nail, initial encounter (principal); W26.0XXA Contact with knife, initial encounter; Y93.G1 Activity, food preparation and clean up
CPT/HCPCS: 90471; 99282; 99283

== ENCOUNTER 2020-04-28 16:44 | Outpatient (CLI) | payer MEDICAID ==
--- NOTE | 2020-04-28 20:31 | MRI Report ---
PROCEDURE: Brain W/O INDICATIONS: CHIARI MALFORMATION TYPE 1, MEMORY LOSS, MIGRAINE TECHNIQUE: Noncontrast axial T1 spin echo, axial T2 fast spin echo, sagittal and axial FLAIR, coronal T2 fast sp in echo, axial gradient echo, axial diffusion and ADC through the brain. COMPARISON: None. FINDINGS: Image quality: Excellent. CSF Spaces: Basal cisterns are patent. No extra-axial fluid collections. Ventricles are normal in size and shape. Brain: No intracranial masses or hemorrhage. [place]/white matter interface is normal. Brainstem appe ars normal. Diffusion-weighted images demonstrate no acute ischemic insult. No chronic ischemic ins ults. Normal intravascular flow voids are present. The visualized cerebellum appears normal in morp hology without evidence for elongation or peglike tonsils. No evidence of extension below or crowding of the foramen magnum. Skull and face: Calvarium has normal marrow signal. Orbits appear normal. Sinuses: Sinuses and mastoids are clear. IMPRESSION: MRI brain without acute intracranial abnormalities. No findings to suggest Chiari I malformation. Reviewed by: Ryan George MD on 04/28/2020 7:29 PM [place] Approved by: Ryan George MD on 04/28/2020 7:29 PM [facility] Station ID: [id number]
== END 2020-04-28 16:45 | disposition home or self-care (01) ==
LOC: DI 16:44
PROVIDERS: ATTEND Family Medicine
DX: R41.3 Other amnesia (principal); G43.909 Migraine, unspecified, not intractable, without status migrainosus
CPT/HCPCS: 70551

== ENCOUNTER 2020-06-19 19:09 | Emergency (ER) | payer MEDICAID ==
[2020-06-19 19:37] LABS: BILIRUBIN,URINE NEGATIVE (NEGATIVE); GLUCOSE, URINE (UA) NEGATIVE (NEGATIVE); KETONES,URINE (UA) NEGATIVE (NEGATIVE); LEUKOCYTE ESTERASE, URINE NEGATIVE (NEGATIVE); NITRITE,URINE POSITIVE (NEGATIVE); OCCULT BLOOD,URINE NEGATIVE (NEGATIVE); PROTEIN,URINE TRACE mg/dL (NEGATIVE); UROBILINOGEN,URINE 1 (NORMAL) E.U./dL (NORMAL)
[2020-06-19 19:41] LABS: CLARITY,URINE HAZY (CLEAR)
[2020-06-19 19:57] LABS: BACTERIA,URINE Few /HPF (None Seen); MUCUS,URINE Marked Strands; RBC,URINE 0-5 /HPF (0-5); SQUAMOUS EPITHELIAL CELL,UR FEW Squamous (<= Few)
[2020-06-19 20:01] LABS: BASOPHILS # (AUTO) 0.1 10^3/uL (0.0-0.1); BASOPHILS % (AUTO) 0.9 %; EOSINOPHILS # (AUTO) 0.3 10^3/uL (0.0-0.7); EOSINOPHILS % (AUTO) 3.6 %; HGB - HEMOGLOBIN 13.7 g/dL (12.0-16.0); LYMPHOCYTES # (AUTO) 2.4 10^3/uL (1.5-3.5); LYMPHOCYTES % (AUTO) 26.2 %; MEAN CORPUSCULAR HEMOGLOBIN 30.2 pg (27.0-31.0); MEAN CORPUSCULAR HGB CONC 32.5 g/dL (32.0-36.0); MEAN CORPUSCULAR VOLUME 92.7 fL (81.0-99.0); MEAN PLATELET VOLUME 11.1 fL (7.9-10.8); MONOCYTES # (AUTO) 0.5 10^3/uL (0.0-1.0); MONOCYTES % (AUTO) 5.3 %; NEUTROPHILS # (AUTO) 5.9 10^3/uL (1.5-6.6); NEUTROPHILS % (AUTO) 63.9 %; PLT - PLATELET COUNT 310 10^3/uL (130-450); RED BLOOD COUNT 4.54 10^6/uL (4.20-5.40); RED CELL DISTRIBUTION WIDTH 12.9 % (12.0-15.0); WHITE BLOOD COUNT 9.2 x10^3/uL (4.8-10.8)
[2020-06-19 20:09] LABS: ALBUMIN 4.3 g/dL (3.2-5.5); ALBUMIN/GLOBULIN RATIO 1.3 (1.0-2.2); BILIRUBIN,TOTAL 0.5 mg/dL (0.2-1.0); CALCIUM 9.2 mg/dL (8.5-10.3); CREATININE 0.6 mg/dL (0.4-1.0); TOTAL PROTEIN 7.5 g/dL (6.7-8.2)
[2020-06-19] MEDS ORDERED: oxyCODONE 5 MG TABLET PO STA (20:13)
--- NOTE | 2020-06-19 20:56 | CT Report ---
PROCEDURE: Abdomen/Pelvis WO INDICATIONS: R flank pain TECHNIQUE: Noncontrast 5 mm thick sections acquired from the diaphragms to the symphysis. 5 mm coronal and sagi ttal reformats were then performed. For radiation dose reduction, the following was used: automated exposure control, adjustment of mA and/or kV according to patient size. COMPARISON: None. FINDINGS: Image quality: Limited by the lack of both enteric and IV contrast. ABDOMEN: Lung bases: Lung bases are clear. Heart size is normal. Solid organs: Liver and spleen are normal in size. Gallbladder has been removed Pancreas is normal in contours. No adrenal nodules. Kidneys are normal in size, without hydronephrosis or nephrolithi asis. Peritoneum and bowel: Appendix not visualized. Unenhanced bowel loops demonstrate normal wall thickne ss and caliber. No free fluid or air. Nodes and vessels: No retroperitoneal or mesenteric adenopathy by size criteria. Aorta and inferior vena cava are normal in caliber. Miscellaneous: No ventral hernias. PELVIS: Genitourinary: Bladder wall thickness is normal. Unenhanced uterus and ovaries within normal limits . Small volume free pelvic fluid on the right. Miscellaneous: No inguinal hernias or adenopathy. Bones: No suspicious bony lesions. No vertebral body compression fractures. IMPRESSION: No findings to explain symptoms. Reviewed by: Jason Calvin MD on 06/19/2020 8:54 PM PST Approved by: Jason Calvin MD on 06/19/2020 8:54 PM PST Station ID: [id number]
[2020-06-19] MEDS ORDERED: cefTRIAXone 1 GM VIAL IM STA (21:12)
[2020-06-19] MEDS ORDERED: ONDANSETRON ODT 4 MG TABLET TL STA (21:13)
--- NOTE | 2020-06-19 21:17 | ED Physician Documentation ---
History of Present Illness - Stated complaint Stated Complaint: ABD PX/FEMALE - Chief complaint Chief Complaint: Abd Pain - History obtained from History obtained from: Patient - History of Present Illness Timing: How many days ago (3) Pain level max: 8 Pain level now: 6 - Additonal information Additional information: 34-year-old female with a history of ovarian cysts and UTI presents to the emergency department with right lower quadrant abdominal pain. Has a history of same. She has had an oophorectomy, appendectomy, cholecystectomy in the past. She has multiple allergies to medications. Pain is worse with movement and better with rest. She denies any STD exposure. She does state that she has a small lump to her labia as well as vaginal discharge. 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 : Other HEENT: Chronic sinusitis Psych: Depression Musculoskeletal: None Derm: None - Past Surgical History Past Surgical History: Yes General: Cholecystectomy, Appendectomy, Gastric surgery Ortho: Other /BLOCK PAVER: section, Tubal ligation, Hysterectomy, Other Neuro: Craniotomy HEENT: Tonsil/Adenoidectomy - Present Medications Home Medications: Ambulatory Orders Medication Instructions Recorded Confirmed Omeprazole 20 mg PO BID 09/30/18 02/16/20 EPINEPHrine [Epinephrine] 0.3 mg IJ ONCE PRN #2 auto.injct 05/09/19 02/16/20 Sucralfate 1 gm PO AC 30 Days #90 tablet 09/19/19 02/16/20 Acetaminophen [Tylenol Extra 1,000 mg PO Q6HR PRN MDD 4000mg 02/16/20 02/16/20 Strength] Albuterol Sulfate [Proair Hfa 1 - 2 puffs INH Q4H PRN 02/16/20 02/16/20 Inhaler] Ondansetron [Ondansetron Odt] 4 mg PO BID 02/16/20 02/16/20 Ranitidine 150 mg PO BID 02/16/20 02/16/20 diphenhydrAMINE [Benadryl] 25 - 50 mg PO PRN PRN 02/16/20 02/16/20 Cefdinir 300 mg PO BID #20 capsule 06/19/20 Ondansetron Odt [Zofran] 4 mg TL Q6H PRN #10 tablet 06/19/20 Oxycodone HCl/Acetaminophen 1 - 2 each PO Q6H PRN #14 tablet 06/19/20 [Percocet 5-325 mg Tablet] - Allergies Allergies/Adverse Reactions: Allergies Allergy/AdvReac Type Severity Reaction Status Date / Time aspirin Allergy Severe Anaphylaxis Verified 04/12/20 19:19 hydromorphone HCl * Allergy Severe Hives Verified 04/12/20 19:19 [From Dilaudid] morphine Allergy Severe Hives Verified 06/19/20 19:18 nitrofurantoin Allergy Severe Respiratory Verified 06/19/20 19:18 macrocrystalline * [From Macrobid] acetaminophen [From Ofirmev] Allergy Hives Verified 06/19/20 19:18 amoxicillin Allergy Anaphylaxis Verified 06/19/20 19:18 doxycycline Allergy Hives Verified 06/19/20 19:18 famotidine [From Pepcid] Allergy Anaphylaxis Verified 06/19/20 19:18 fentanyl Allergy Unknown Verified 06/19/20 19:18 fluconazole Allergy Hives Verified 06/19/20 19:18 lidocaine Allergy Unknown Verified 06/19/20 19:18 meperidine HCl * Allergy Anaphylaxis Verified 06/19/20 19:18 [From Demerol] Penicillins Allergy Anaphylaxis Verified 06/19/20 19:18 prednisone Allergy Anaphylaxis Verified 06/19/20 19:18 tamsulosin HCl * Allergy Unknown Verified 06/19/20 19:18 [From Flomax] trimethoprim [From Bactrim] Allergy Hives Verified 06/19/20 19:18 wheat Allergy Hives Verified 06/19/20 19:18 hydrocodone [Hydrocodone] AdvReac Severe Emesis Verified 06/19/20 19:18 butorphanol AdvReac Intermediate Anxiety Verified 06/19/20 19:18 adhesive AdvReac Rash Verified 06/19/20 19:18 [place] And Derivatives AdvReac Nausea Verified 06/19/20 19:18 egg AdvReac Nausea Verified 06/19/20 19:18 fexofenadine AdvReac Edema Verified 06/19/20 19:18 milk AdvReac Nausea Verified 06/19/20 19:18 NSAIDS (Non-Steroidal AdvReac Cramps Verified 06/19/20 19:18 Anti-Inflamma - Social History Does the pt smoke?: No Smoking Status: Never smoker Does the pt drink ETOH?: No Does the pt have substance abuse?: No Substance Use and Type: Marijuana, CBD oil / Products - Immunizations Immunizations are current?: Yes - POLST Patient has POLST: No POLST Status: Full Code PD ED PE NORMAL - Vitals Vital signs reviewed: Yes - General General: Alert and oriented X 3, No acute distress - HEENT HEENT: Moist mucous membranes - Neck Neck: Supple, no meningeal sign - Cardiac Cardiac: RRR, Strong equal pulses - Respiratory Respiratory: No respiratory distress, Clear bilaterally - Abdomen Abdomen: Soft, Non distended, Other (Tender palpation right lower quadrant, no peritoneal signs.) - Female Female : Knockout Machine 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 This is on the right posterior labia. No drainage. Patient declines a full pelvic exam) - Back Back: Other (Mild right CVA tenderness) - Derm Derm: Warm and dry - Extremities Extremities: No deformity, No edema - Neuro Neuro: Alert and oriented X 3 - Psych Psych: Normal mood, Normal affect Results - Vitals Vitals: Vital Signs - 24 hr 06/19/20 06/19/20 06/19/20 19:18 19:47 21:23 Temperature 36.5 C 36.9 C 36.4 C L Heart Rate 100 89 103 H Respiratory 16 16 20 Rate Blood Pressure 120/70 115/78 101/62 O2 Saturation 98 99 98 06/19/20 21:55 Temperature Heart Rate 72 Respiratory 16 Rate Blood Pressure 112/84 H O2 Saturation 99 Oxygen O2 Source Room air - Labs Labs: Laboratory Tests 06/19/20 06/19/20 06/19/20 19:25 19:49 19:49 WBC 9.2 RBC 4.54 Hgb 13.7 Hct 42.1 MCV 92.7 MCH 30.2 MCHC 32.5 RDW 12.9 Plt Count 310 MPV 11.1 H Neut # (Auto) 5.9 Lymph # (Auto) 2.4 [place] # (Auto) 0.5 Eos # (Auto) 0.3 Baso # (Auto) 0.1 Absolute Nucleated RBC 0.00 Nucleated RBC % 0.0 Sodium 138 Potassium 3.1 L Chloride 105 Carbon Dioxide 25 Anion Gap 8.0 BUN 12 Creatinine 0.6 Estimated GFR (MDRD) 114 Glucose 97 Calcium 9.2 Total Bilirubin 0.5 AST 16 ALT 15 Alkaline Phosphatase 36 L Total Protein 7.5 Albumin 4.3 Globulin 3.2 Albumin/Globulin Ratio 1.3 Lipase 69 H Urine Color ORANGE Urine Clarity HAZY Urine pH 6.0 Ur Specific [place] 1.025 Urine Protein TRACE Urine Glucose (UA) NEGATIVE Urine Ketones NEGATIVE Urine Occult Blood NEGATIVE Urine Nitrite POSITIVE H Urine Bilirubin NEGATIVE Urine Urobilinogen 1 (NORMAL) Ur Leukocyte Esterase NEGATIVE Urine RBC 0-5 Urine WBC 11-25 H Ur Squamous Epith Cells FEW Squamous Urine Bacteria Few Urine Mucus Marked Strands Ur Microscopic Review INDICATED Urine Culture Comments INDICATED - Rads (name of study) CT abdomen pelvis Radiology: Prelim report reviewed, EMP read contemporaneously, See rad report (No acute abnormalities. Small amount of free fluid in the right pelvis) PD MEDICAL DECISION MAKING - ED course Complexity details: reviewed results, re-evaluated patient, considered differential, d/w patient ED course: 34-year-old female with abdominal pain. Appears to have a ruptured ovarian cyst. No evidence of torsion. Patient is allergic to IV contrast, therefore this could not be used. Does appear to have a UTI, possible pyelonephritis. We will treat with Rocephin and cefdinir. She states she has had these in the past without reaction. We will place on oxycodone for pain. Patient is well- appearing, nontoxic. Afebrile. Patient counseled regarding signs and symptoms for which I believe and urgent re-evaluation would be necessary. Patient with good understanding of and agreement to plan and is comfortable going home at this time This document was made in part using voice recognition software. While efforts are made to proofread this document, sound alike and grammatical errors may occur. Departure - Departure Disposition: 01 Home, Self Care Clinical Impression: UTI (urinary tract infection) Qualifiers: Urinary tract infection type: acute pyelonephritis Qualified Code(s): N10 - Acute pyelonephritis Condition: Good Instructions: ED Kidney Infec Female Follow-Up: your,doctor in 1week [Other] Prescriptions: Cefdinir 300 mg PO BID #20 capsule Oxycodone HCl/Acetaminophen [Percocet 5-325 mg Tablet] 1 - 2 each PO Q6H PRN #14 tablet PRN Reason: pain Ondansetron Odt [Zofran] 4 mg TL Q6H PRN #10 tablet PRN Reason: Nausea / Vomiting Comments: Take all antibiotics until gone. Return if you worsen. Do not drink alcohol or drive while on narcotic pain medicine. Note that many narcotic pain relievers also contain tylenol/acetaminophen. Please ensure that your total dose of acetaminophen from all sources does not exceed 3 grams (3000mg) per day. You may constipated on this medication, take a stool softener such as "Colace" twice a day while you are on it. Also recommend a [id number] laxative such as senna or MiraLAX any day that you do not have a bowel movement. If you received narcotic pain medication in the emergency department, do not drive or operate machinery for the next 24 hours. Discharge Date/Time: 06/19/20 21:59
[2020-06-19 21:56] VITALS: BP 112/84
== END 2020-06-19 21:59 | disposition home or self-care (01) ==
LOC: ED 19:09
DX: N10 Acute pyelonephritis (principal); N75.0 Cyst of Bartholin's gland; Z90.49 Acquired absence of other specified parts of digestive tract; Z90.721 Acquired absence of ovaries, unilateral; Z88.0 Allergy status to penicillin; Z88.8 Allergy status to other drugs, medicaments and biological substances; Z91.041 Radiographic dye allergy status
CPT/HCPCS: 36415; 74176; 80053; 81001; 83690; 85025; 87086; 96372; 99284; A9270; Q0162; 81003; 87491; 87591; 87661; 87801

== ENCOUNTER 2020-06-26 10:47 | Emergency (ER) | payer MEDICAID ==
[2020-06-26 11:51] LABS: BASOPHILS # (AUTO) 0.1 10^3/uL (0.0-0.1); BASOPHILS % (AUTO) 1.3 %; EOSINOPHILS # (AUTO) 0.4 10^3/uL (0.0-0.7); EOSINOPHILS % (AUTO) 5.9 %; HCT - HEMATOCRIT 44.7 % (37.0-47.0); HGB - HEMOGLOBIN 14.9 g/dL (12.0-16.0); LYMPHOCYTES # (AUTO) 1.9 10^3/uL (1.5-3.5); LYMPHOCYTES % (AUTO) 25.3 %; MEAN CORPUSCULAR HEMOGLOBIN 30.3 pg (27.0-31.0); MEAN CORPUSCULAR HGB CONC 33.3 g/dL (32.0-36.0); MEAN CORPUSCULAR VOLUME 90.9 fL (81.0-99.0); MEAN PLATELET VOLUME 11.5 fL (7.9-10.8); MONOCYTES # (AUTO) 0.4 10^3/uL (0.0-1.0); MONOCYTES % (AUTO) 5.1 %; NEUTROPHILS # (AUTO) 4.6 10^3/uL (1.5-6.6); NEUTROPHILS % (AUTO) 62.3 %; PLT - PLATELET COUNT 279 10^3/uL (130-450); RED BLOOD COUNT 4.92 10^6/uL (4.20-5.40); RED CELL DISTRIBUTION WIDTH 12.8 % (12.0-15.0); WHITE BLOOD COUNT 7.4 x10^3/uL (4.8-10.8)
[2020-06-26 12:02] LABS: CALCIUM 9.3 mg/dL (8.5-10.3); CREATININE 0.7 mg/dL (0.4-1.0)
[2020-06-26] MEDS ORDERED: KETOROLAC 30 MG/ML VIAL IVP STA (12:25)
[2020-06-26] MEDS ORDERED: SODIUM CHLORIDE 0.9% 1,000 ML IV STA (12:25)
--- NOTE | 2020-06-26 12:34 | ED Physician Documentation ---
History of Present Illness - Stated complaint Stated Complaint: CHEST PX - Chief complaint Chief Complaint: General - History obtained from History obtained from: Patient - Additonal information Additional information: 34-year-old woman with history of anxiety, ulcer disease. She was seen a week ago for abdominal pain flank pain and UTI complaints. Urinalysis was positive, white count was 9.2. CT of the abdomen and pelvis was done and negative. She received Rocephin here which improved her for about a day and a prescription prescription for cefdinir. A few days after starting the cefdinir she developed sharp upper chest pain radiating to the left shoulder with numbness in the left arm. Its been constant. It hurts worse when she takes a deep breath and is mildly short of breath with it. She denies calf pain, pedal edema, cough, fevers. She was seen in the clinic today and reportedly still has a positive urinalysis. Is culture from last visit grew greater than 100,000 colonies of polymicrobial growth. Review of Systems Constitutional: denies: Fever, Chills Cardiac: reports: Chest pain / pressure. denies: Palpitations, Pedal edema, Calf pain Respiratory: reports: Dyspnea. 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 : Other HEENT: Chronic sinusitis Psych: Depression Musculoskeletal: None Derm: None - Past Surgical History Past Surgical History: Yes General: Cholecystectomy, Appendectomy, Gastric surgery Ortho: Other /ENTRY OPERATOR: section, Tubal ligation, Hysterectomy, Other Neuro: Craniotomy HEENT: Tonsil/Adenoidectomy - Present Medications Home Medications: Ambulatory Orders Medication Instructions Recorded Confirmed Omeprazole 20 mg PO BID 09/30/18 02/16/20 EPINEPHrine [Epinephrine] 0.3 mg IJ ONCE PRN #2 auto.injct 05/09/19 02/16/20 Sucralfate 1 gm PO AC 30 Days #90 tablet 09/19/19 02/16/20 Acetaminophen [Tylenol Extra 1,000 mg PO Q6HR PRN MDD 4000mg 02/16/20 02/16/20 Strength] Albuterol Sulfate [Proair Hfa 1 - 2 puffs INH Q4H PRN 02/16/20 02/16/20 Inhaler] Ondansetron [Ondansetron Odt] 4 mg PO BID 02/16/20 02/16/20 Ranitidine 150 mg PO BID 02/16/20 02/16/20 diphenhydrAMINE [Benadryl] 25 - 50 mg PO PRN PRN 02/16/20 02/16/20 Cefdinir 300 mg PO BID #20 capsule 06/19/20 Ondansetron Odt [Zofran] 4 mg TL Q6H PRN #10 tablet 06/19/20 Oxycodone HCl/Acetaminophen 1 - 2 each PO Q6H PRN #14 tablet 06/19/20 [Percocet 5-325 mg Tablet] Ciprofloxacin [Cipro] 250 mg PO Q12H #6 tablet 06/26/20 Meclizine [Antivert] 25 mg PO Q6H PRN #15 tablet 06/26/20 - Allergies Allergies/Adverse Reactions: Allergies Allergy/AdvReac Type Severity Reaction Status Date / Time aspirin Allergy Severe Anaphylaxis Verified 06/26/20 10:59 hydromorphone HCl * Allergy Severe Hives Verified 06/26/20 10:59 [From Dilaudid] morphine Allergy Severe Hives Verified 06/26/20 10:59 nitrofurantoin Allergy Severe Respiratory Verified 06/26/20 10:59 macrocrystalline * [From Macrobid] acetaminophen [From Ofirmev] Allergy Hives Verified 06/26/20 10:59 amoxicillin Allergy Anaphylaxis Verified 06/26/20 10:59 doxycycline Allergy Hives Verified 06/26/20 10:59 famotidine [From Pepcid] Allergy Anaphylaxis Verified 06/26/20 10:59 fentanyl Allergy Unknown Verified 06/26/20 10:59 fluconazole Allergy Hives Verified 06/26/20 10:59 lidocaine Allergy Unknown Verified 06/26/20 10:59 meperidine HCl * Allergy Anaphylaxis Verified 06/26/20 10:59 [From Demerol] Penicillins Allergy Anaphylaxis Verified 06/26/20 10:59 prednisone Allergy Anaphylaxis Verified 06/26/20 10:59 tamsulosin HCl * Allergy Unknown Verified 06/26/20 10:59 [From Flomax] trimethoprim [From Bactrim] Allergy Hives Verified 06/26/20 10:59 wheat Allergy Hives Verified 06/26/20 10:59 hydrocodone [Hydrocodone] AdvReac Severe Emesis Verified 06/26/20 10:59 butorphanol AdvReac Intermediate Anxiety Verified 06/26/20 10:59 adhesive AdvReac Rash Verified 06/26/20 10:59 [place] And Derivatives AdvReac Nausea Verified 06/26/20 10:59 egg AdvReac Nausea Verified 06/26/20 10:59 fexofenadine AdvReac Edema Verified 06/26/20 10:59 milk AdvReac Nausea Verified 06/26/20 10:59 NSAIDS (Non-Steroidal AdvReac Cramps Verified 06/26/20 10:59 Anti-Inflamma - Social History Does the pt smoke?: No Smoking Status: Never smoker Does the pt drink ETOH?: No Does the pt have substance abuse?: No - Immunizations Immunizations are current?: Yes - POLST Patient has POLST: No POLST Status: Full Code PD ED PE NORMAL - Vitals Vital signs reviewed: Yes - General General: Alert and oriented X 3, No acute distress - HEENT HEENT: PERRL, EOMI - Neck Neck: Supple, no meningeal sign, No bony TTP - Cardiac Cardiac: RRR, No murmur - Respiratory Respiratory: No respiratory distress, Clear bilaterally - Abdomen Abdomen: Non tender - Back Back: No CVA TTP, No spinal TTP - Derm Derm: Normal color, Warm and dry - Extremities Extremities: No edema, No calf tenderness / cord - Neuro Neuro: Alert and oriented X 3, Normal speech Results - Vitals Vitals: Vital Signs - 24 hr 06/26/20 06/26/20 06/26/20 10:55 12:48 13:25 Temperature 36.6 C Heart Rate 94 97 Respiratory 14 20 18 Rate Blood Pressure 118/81 H O2 Saturation 100 100 06/26/20 14:12 Temperature Heart Rate 105 H Respiratory 18 Rate Blood Pressure 120/86 H O2 Saturation 100 Oxygen O2 Source Room air - EKG (time done) 1102 Rate: Rate (enter#) (99) Rhythm: NSR, LAE [place]: Normal QRS: Low voltage Ischemia: Non specific changes Computer interpretation: Agree with computer - Labs Labs: Laboratory Tests 06/26/20 06/26/20 06/26/20 08:59 08:59 08:59 WBC 7.4 RBC 4.92 Hgb 14.9 Hct 44.7 MCV 90.9 MCH 30.3 MCHC 33.3 RDW 12.8 Plt Count 279 MPV 11.5 H Neut # (Auto) 4.6 Lymph # (Auto) 1.9 [place] # (Auto) 0.4 Eos # (Auto) 0.4 Baso # (Auto) 0.1 Absolute Nucleated RBC 0.00 Nucleated RBC % 0.0 Sodium 138 Potassium 4.0 Chloride 102 Carbon Dioxide 24 Anion Gap 12.0 BUN 14 Creatinine 0.7 Estimated GFR (MDRD) 96 Glucose 101 H Calcium 9.3 Troponin I High Sens < 2.3 L FSH Urine Color Urine Clarity Urine pH Ur Specific [place] Urine Protein Urine Glucose (UA) Urine Ketones Urine Occult Blood Urine Nitrite Urine Bilirubin Urine Urobilinogen Ur Leukocyte Esterase Urine RBC Urine WBC Ur Squamous Epith Cells Urine Bacteria Ur Microscopic Review Urine Culture Comments Urine HCG, Qual 06/26/20 06/26/20 06/26/20 11:46 12:30 13:36 WBC RBC Hgb Hct MCV MCH MCHC RDW Plt Count MPV Neut # (Auto) Lymph # (Auto) [place] # (Auto) Eos # (Auto) Baso # (Auto) Absolute Nucleated RBC Nucleated RBC % Sodium Potassium Chloride Carbon Dioxide Anion Gap BUN Creatinine Estimated GFR (MDRD) Glucose Calcium Troponin I High Sens FSH 3.37 Urine Color YELLOW YELLOW Urine Clarity HAZY CLEAR Urine pH 8.5 H 8.0 H Ur Specific [place] 1.015 1.015 Urine Protein NEGATIVE NEGATIVE Urine Glucose (UA) NEGATIVE NEGATIVE Urine Ketones NEGATIVE NEGATIVE Urine Occult Blood NEGATIVE NEGATIVE Urine Nitrite NEGATIVE NEGATIVE Urine Bilirubin NEGATIVE NEGATIVE Urine Urobilinogen 0.2 (NORMAL) 0.2 (NORMAL) Ur Leukocyte Esterase LARGE H TRACE H Urine RBC None Seen None Seen Urine WBC 6-10 H 0-3 Ur Squamous Epith Cells MANY Squamous H NONE SEEN Urine Bacteria Few None Seen Ur Microscopic Review INDICATED INDICATED Urine Culture Comments NOT INDICATED INDICATED Urine HCG, Qual NEGATIVE PD MEDICAL DECISION MAKING - ED course ED course: 34-year-old woman with recent UTI treated with cefdinir presents now with several days worth of chest pain. PE RC negative. Seems most likely anxiety and she agrees and has a history of same. Heart score 0. She came from gynecology clinic and they requested we order an FSH which was done, they said they would follow-up on it. Departure - Departure Disposition: 01 Home, Self Care Clinical Impression: Chest pain, Dyspnea UTI (urinary tract infection) Qualifiers: Urinary tract infection type: site unspecified Hematuria presence: without hematuria Qualified Code(s): N39.0 - Urinary tract infection, site not specified Condition: Good Record reviewed to determine appropriate education?: Yes Instructions: ED UTI Cystitis Female Prescriptions: Meclizine [Antivert] 25 mg PO Q6H PRN #15 tablet PRN Reason: Vertigo Ciprofloxacin [Cipro] 250 mg PO Q12H #6 tablet Comments: No evidence of active illness of the heart or lungs. Still very mild signs of infection in the urine, you received a gram of ceftriaxone for this today and can start the ciprofloxacin for the next few days starting tomorrow. The meclizine may help with your vertigo. Return if worsening. We will culture your urine, the results should be done in 48-72 hours. If an antibiotic change is necessary we will call you. Return if worse in the meantime, especially if you develop increasing flank pain, fevers, or cannot keep down the medication. Forms: Activity restrictions Discharge Date/Time: 06/26/20 14:22
[2020-06-26] MEDS ORDERED: cefTRIAXone 1 GM in SODIUM CHLORIDE 0.9% MINIBAG 100 ML IV STA (12:35)
[2020-06-26 12:42] LABS: BILIRUBIN,URINE NEGATIVE (NEGATIVE); GLUCOSE, URINE (UA) NEGATIVE (NEGATIVE); KETONES,URINE (UA) NEGATIVE (NEGATIVE); LEUKOCYTE ESTERASE, URINE LARGE (NEGATIVE); NITRITE,URINE NEGATIVE (NEGATIVE); OCCULT BLOOD,URINE NEGATIVE (NEGATIVE); PH,URINE 8.5 PH (5.0-7.5); PROTEIN,URINE NEGATIVE (NEGATIVE); UROBILINOGEN,URINE 0.2 (NORMAL) E.U./dL (NORMAL)
[2020-06-26 12:45] LABS: CLARITY,URINE HAZY (CLEAR); HCG UR QUAL NEGATIVE
[2020-06-26 12:49] LABS: BACTERIA,URINE Few /HPF (None Seen); RBC,URINE None Seen /HPF (0-5); SQUAMOUS EPITHELIAL CELL,UR MANY Squamous (<= Few)
[2020-06-26] MEDS ORDERED: ONDANSETRON 4 MG/2 ML VIAL IVP STA (12:51)
[2020-06-26] MEDS ORDERED: oxyCODONE 5 MG TABLET PO STA (13:07)
[2020-06-26 13:45] LABS: BILIRUBIN,URINE NEGATIVE (NEGATIVE); CLARITY,URINE CLEAR (CLEAR); GLUCOSE, URINE (UA) NEGATIVE (NEGATIVE); KETONES,URINE (UA) NEGATIVE (NEGATIVE); LEUKOCYTE ESTERASE, URINE TRACE (NEGATIVE); NITRITE,URINE NEGATIVE (NEGATIVE); OCCULT BLOOD,URINE NEGATIVE (NEGATIVE); PROTEIN,URINE NEGATIVE (NEGATIVE); UROBILINOGEN,URINE 0.2 (NORMAL) E.U./dL (NORMAL)
[2020-06-26 13:49] LABS: BACTERIA,URINE None Seen /HPF (None Seen); RBC,URINE None Seen /HPF (0-5); SQUAMOUS EPITHELIAL CELL,UR NONE SEEN (<= Few); WBC,URINE 0-3 /HPF (0-5)
[2020-06-26] MEDS ORDERED: LORazepam 2 MG/ML VIAL IVP STA (13:59)
[2020-06-26] MEDS ORDERED: diphenhydrAMINE INJ 50 MG/ML VIAL IVP STA (13:59)
[2020-06-26 14:15] VITALS: BP 120/86
== END 2020-06-26 14:22 | disposition home or self-care (01) ==
LOC: ED 10:47
DX: R07.9 Chest pain, unspecified (principal); R06.02 Shortness of breath; N39.0 Urinary tract infection, site not specified; F41.9 Anxiety disorder, unspecified
CPT/HCPCS: 36415; 80048; 81001; 81025; 83001; 84443; 84484; 85025; 87086; 93005; 96361; 96365; 96375; 99283; 99284; A9270; J1200; J2060; 81003

== ENCOUNTER 2020-08-16 17:51 | Emergency (ER) | payer MEDICAID ==
[2020-08-16] MEDS ORDERED: KETOROLAC 30 MG/ML VIAL IVP STA ×2 (18:28→19:58)
[2020-08-16] MEDS ORDERED: SODIUM CHLORIDE 0.9% 1,000 ML IV STA (18:28)
[2020-08-16] MEDS ORDERED: ONDANSETRON 4 MG/2 ML VIAL IVP STA ×2 (18:29→19:58)
[2020-08-16 18:46] LABS: BILIRUBIN,URINE NEGATIVE (NEGATIVE); GLUCOSE, URINE (UA) NEGATIVE (NEGATIVE); KETONES,URINE (UA) NEGATIVE (NEGATIVE); LEUKOCYTE ESTERASE, URINE NEGATIVE (NEGATIVE); NITRITE,URINE NEGATIVE (NEGATIVE); OCCULT BLOOD,URINE NEGATIVE (NEGATIVE); PROTEIN,URINE NEGATIVE (NEGATIVE); UROBILINOGEN,URINE 0.2 (NORMAL) E.U./dL (NORMAL)
[2020-08-16 18:47] LABS: CLARITY,URINE CLEAR (CLEAR); HCG UR QUAL NEGATIVE
--- NOTE | 2020-08-16 18:56 | ED Physician Documentation ---
History of Present Illness - Stated complaint Stated Complaint: KINDNEY PAIN - Chief complaint Chief Complaint: Abd Pain - Additonal information Additional information: 34-year-old female presents the emergency department with 1 week of worsening bilateral kidney pain though right greater than left. She reports history of nephrolithiasis as well as polycystic kidney disease. She states that the pain over the last week has migrated down towards her right lower quadrant. She has been trying to drink water to flush her kidneys but it is not helping. She denies dysuria urgency or frequency but is concerned that she may need antibiotics for what she believes is a pyelonephritis. Review of Systems Constitutional: denies: Fever, Chills Eyes: reports: Reviewed and negative Ears: reports: Reviewed and negative Throat: reports: Reviewed and negative Cardiac: reports: Reviewed and negative Respiratory: reports: Reviewed and negative GI: reports: Abdominal Pain, Nausea, Vomiting : denies: Dysuria, Frequency, Hesitancy Skin: reports: Reviewed and negative Musculoskeletal: reports: Reviewed and negative PD PAST MEDICAL HISTORY - Past Medical History Past Medical History: Yes Cardiovascular: None, Other Respiratory: None, Other Neuro: Other Endocrine/Autoimmune: None GI: None, Ulcers 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 : Other HEENT: Chronic sinusitis Psych: Depression Musculoskeletal: None Derm: None - Past Surgical History Past Surgical History: Yes General: Cholecystectomy, Appendectomy, Gastric surgery Ortho: Other /AIR TRAFFIC 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 REPAIRER: 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, Tubal ligation, Hysterectomy, Other Neuro: Craniotomy HEENT: Tonsil/Adenoidectomy - Present Medications Home Medications: Ambulatory Orders Medication Instructions Recorded Confirmed Omeprazole 20 mg PO BID 09/30/18 02/16/20 EPINEPHrine [Epinephrine] 0.3 mg IJ ONCE PRN #2 auto.injct 05/09/19 02/16/20 Sucralfate 1 gm PO AC 30 Days #90 tablet 09/19/19 02/16/20 Acetaminophen [Tylenol Extra 1,000 mg PO Q6HR PRN MDD 4000mg 02/16/20 02/16/20 Strength] Albuterol Sulfate [Proair Hfa 1 - 2 puffs INH Q4H PRN 02/16/20 02/16/20 Inhaler] Ondansetron [Ondansetron Odt] 4 mg PO BID 02/16/20 02/16/20 Ranitidine 150 mg PO BID 02/16/20 02/16/20 diphenhydrAMINE [Benadryl] 25 - 50 mg PO PRN PRN 02/16/20 02/16/20 Cefdinir 300 mg PO BID #20 capsule 06/19/20 Ondansetron Odt [Zofran] 4 mg TL Q6H PRN #10 tablet 06/19/20 Oxycodone HCl/Acetaminophen 1 - 2 each PO Q6H PRN #14 tablet 06/19/20 [Percocet 5-325 mg Tablet] Ciprofloxacin [Cipro] 250 mg PO Q12H #6 tablet 06/26/20 Meclizine [Antivert] 25 mg PO Q6H PRN #15 tablet 06/26/20 Ondansetron Odt [Zofran] 4 mg TL Q6H PRN #10 tab 08/16/20 Oxycodone HCl/Acetaminophen 1 - 2 each PO Q6H PRN #14 tab 08/16/20 [Percocet 5-325 mg Tablet] - Allergies Allergies/Adverse Reactions: Allergies Allergy/AdvReac Type Severity Reaction Status Date / Time aspirin Allergy Severe Anaphylaxis Verified 06/26/20 10:59 hydromorphone HCl * Allergy Severe Hives Verified 06/26/20 10:59 [From Dilaudid] morphine Allergy Severe Hives Verified 06/26/20 10:59 nitrofurantoin Allergy Severe Respiratory Verified 06/26/20 10:59 macrocrystalline * [From Macrobid] acetaminophen [From Ofirmev] Allergy Hives Verified 06/26/20 10:59 amoxicillin Allergy Anaphylaxis Verified 06/26/20 10:59 doxycycline Allergy Hives Verified 06/26/20 10:59 famotidine [From Pepcid] Allergy Anaphylaxis Verified 06/26/20 10:59 fentanyl Allergy Unknown Verified 06/26/20 10:59 fluconazole Allergy Hives Verified 06/26/20 10:59 lidocaine Allergy Unknown Verified 06/26/20 10:59 meperidine HCl * Allergy Anaphylaxis Verified 06/26/20 10:59 [From Demerol] Penicillins Allergy Anaphylaxis Verified 06/26/20 10:59 prednisone Allergy Anaphylaxis Verified 06/26/20 10:59 tamsulosin HCl * Allergy Unknown Verified 06/26/20 10:59 [From Flomax] trimethoprim [From Bactrim] Allergy Hives Verified 06/26/20 10:59 wheat Allergy Hives Verified 06/26/20 10:59 hydrocodone [Hydrocodone] AdvReac Severe Emesis Verified 06/26/20 10:59 butorphanol AdvReac Intermediate Anxiety Verified 06/26/20 10:59 adhesive AdvReac Rash Verified 06/26/20 10:59 [place] And Derivatives AdvReac Nausea Verified 06/26/20 10:59 egg AdvReac Nausea Verified 06/26/20 10:59 fexofenadine AdvReac Edema Verified 06/26/20 10:59 milk AdvReac Nausea Verified 06/26/20 10:59 NSAIDS (Non-Steroidal AdvReac Cramps Verified 06/26/20 10:59 Anti-Inflamma - Social History Does the pt smoke?: No Smoking Status: Never smoker Does the pt drink ETOH?: No Does the pt have substance abuse?: No - Immunizations Immunizations are current?: Yes - POLST Patient has POLST: No POLST Status: Full Code PD ED PE EXPANDED - General General: Alert, In Pain - Cardiac Cardiac: Regular Rate, Radial strong equal, Pedal strong equal, Cap refill < 2 sec - Respiratory Respiratory: Clear to ausultation navjot. No: Distress, Labored - Abdomen Abdomen: Normal Bowel sounds, Tender to palpation, Other (right flank and CVA tenderness) - Derm Derm: Normal color. No: Warm and dry - Extremities Extremities: Normal. No: Deformity, Tenderness - Neuro Neuro: Alert and Oriented X 3, CNII-XII intact Results - Vitals Vitals: Vital Signs - 24 hr 08/16/20 08/16/20 18:03 19:20 Temperature 36.6 C 36.7 C Heart Rate 89 89 Respiratory 20 16 Rate Blood Pressure 128/73 97/69 O2 Saturation 100 99 Oxygen O2 Source Room air - Labs Labs: Laboratory Tests 08/16/20 08/16/20 08/16/20 18:13 18:43 18:43 WBC 8.0 RBC 4.69 Hgb 14.6 Hct 43.1 MCV 91.9 MCH 31.1 H MCHC 33.9 RDW 12.7 Plt Count 269 MPV 12.1 H Neut # (Auto) 4.3 Lymph # (Auto) 2.6 [place] # (Auto) 0.3 Eos # (Auto) 0.7 Baso # (Auto) 0.1 Absolute Nucleated RBC 0.00 Nucleated RBC % 0.0 Sodium 142 Potassium 3.7 Chloride 103 Carbon Dioxide 23 Anion Gap 16.0 H BUN 21 H Creatinine 0.7 Estimated GFR (MDRD) 96 Glucose 102 H Calcium 10.2 Total Bilirubin 0.5 AST 29 ALT 23 Alkaline Phosphatase 38 L Total Protein 8.1 Albumin 4.7 Globulin 3.4 Albumin/Globulin Ratio 1.4 Lipase 49 Urine Color YELLOW Urine Clarity CLEAR Urine pH 6.0 Ur Specific [place] 1.025 Urine Protein NEGATIVE Urine Glucose (UA) NEGATIVE Urine Ketones NEGATIVE Urine Occult Blood NEGATIVE Urine Nitrite NEGATIVE Urine Bilirubin NEGATIVE Urine Urobilinogen 0.2 (NORMAL) Ur Leukocyte Esterase NEGATIVE Ur Microscopic Review NOT INDICATED Urine Culture Comments NOT INDICATED Urine HCG, Qual NEGATIVE - Rads (name of study) CT abd/pelvis w/o Radiology: Final report received (No obstructing kidney stone. No hydronephrosis. 2 left nonobstructing kidney stones. Appendix is not identified. Trace free fluid in the pelvis of uncertain clinical significance) PD MEDICAL DECISION MAKING - ED course Complexity details: reviewed results, re-evaluated patient, considered differential, d/w patient ED course: 34-year-old very uncomfortable appearing female presents the emergency department with worsening bilateral kidney pain right greater than left. No hematuria dysuria urgency or frequency. Screening labs show no signs of a urinary infection no leukocytosis or significant electrolyte abnormality. We did do a CT of the abdomen that does show bilateral nonobstructing kidney stones without associated hydronephrosis or hydroureter. However the pain has continued unabated despite 2 doses of Toradol. Patient does report a history of large ovarian cyst on the right side. CT scan does have a small amount of free fluid. We will proceed with pelvic ultrasound to ensure no torsion given unabated pain. If unremarkable or without concerning findings we will plan to discharge the patient home with a prescription for ibuprofen as well as Percocet for pain control. She does have nephrology to follow-up with as well as primary care provider. Emergent return precautions will be discussed. 2130: Pelvic ultrasound has not been completed. However in speaking with the tech she reports that the patient does not have a right ovary it is the left ovary that she has. I discussed this finding with the patient. At this time she elects not to proceed with the pelvic ultrasound. The etiology of the right flank and lower quadrant pain is not clear though it is likely related to nep hrolithiasis. She has a surgically absent appendix. Patient will be discharged home with a prepack of Percocet for tonight. Patient will continue to follow- up with her primary care provider tomorrow. Emergent return precautions discussed Departure - Departure Disposition: 01 Home, Self Care Clinical Impression: Right flank pain, Bilateral nephrolithiasis Condition: Stable Record reviewed to determine appropriate education?: Yes Follow-Up: Omid Portillo MD [Primary Care Provider] - Prescriptions: Oxycodone HCl/Acetaminophen [Percocet 5-325 mg Tablet] 1 - 2 each PO Q6H PRN #14 tab PRN Reason: pain Ondansetron Odt [Zofran] 4 mg TL Q6H PRN #10 tab PRN Reason: Nausea / Vomiting Comments: Isabel I hope that you are feeling better soon. The CT scan showed multiple nonobstructing kidney stones. Fortunately we did not see any swelling in the kidney or in your ureter ureters. Also as we discussed there are no findings of infection in your urine. We did discuss doing a pelvic ultrasound for evaluation of the right lower quadrant abdominal pain. However she previously had an appendectomy and you are missing your right ovary we decided not to proceed with this imaging. Please discuss this ED visit with your primary care doctor and your principal administrative clerk. I have prescribed a limited amount of Percocet for pain control at home. If you find that you are having worsening pain, uncontrolled vomiting fevers or any fainting episodes please return immediately to the ER
[2020-08-16 19:08] LABS: BASOPHILS # (AUTO) 0.1 10^3/uL (0.0-0.1); BASOPHILS % (AUTO) 0.9 %; EOSINOPHILS # (AUTO) 0.7 10^3/uL (0.0-0.7); HGB - HEMOGLOBIN 14.6 g/dL (12.0-16.0); LYMPHOCYTES # (AUTO) 2.6 10^3/uL (1.5-3.5); MEAN CORPUSCULAR HEMOGLOBIN 31.1 pg (27.0-31.0); MEAN CORPUSCULAR HGB CONC 33.9 g/dL (32.0-36.0); MEAN CORPUSCULAR VOLUME 91.9 fL (81.0-99.0); MEAN PLATELET VOLUME 12.1 fL (7.9-10.8); MONOCYTES # (AUTO) 0.3 10^3/uL (0.0-1.0); MONOCYTES % (AUTO) 4.3 %; NEUTROPHILS # (AUTO) 4.3 10^3/uL (1.5-6.6); NEUTROPHILS % (AUTO) 53.5 %; PLT - PLATELET COUNT 269 10^3/uL (130-450); RED BLOOD COUNT 4.69 10^6/uL (4.20-5.40); RED CELL DISTRIBUTION WIDTH 12.7 % (12.0-15.0)
[2020-08-16 19:21] LABS: ALBUMIN 4.7 g/dL (3.2-5.5); ALBUMIN/GLOBULIN RATIO 1.4 (1.0-2.2); BILIRUBIN,TOTAL 0.5 mg/dL (0.2-1.0); CALCIUM 10.2 mg/dL (8.5-10.3); CREATININE 0.7 mg/dL (0.4-1.0); TOTAL PROTEIN 8.1 g/dL (6.7-8.2)
[2020-08-16] MEDS ORDERED: IOVERSOL 320 100 ML VIAL IVP ONE (19:36)
--- NOTE | 2020-08-16 20:01 | CT Report ---
PROCEDURE: Abdomen/Pelvis WO INDICATIONS: right flank and CVA pain TECHNIQUE: Noncontrast 5 mm thick sections acquired from the diaphragms to the symphysis. 5 mm coronal and sagi ttal reformats were then performed. For radiation dose reduction, the following was used: automated exposure control, adjustment of mA and/or kV according to patient size. COMPARISON: None. FINDINGS: Image quality: Excellent. ABDOMEN: Lung bases: Lung bases are clear. Heart size is normal. Solid organs: Liver and spleen are normal in size. Small hypodensity in the right lobe of liver, (3/ 13). This could represent a benign cyst or hemangioma is not well evaluated on this noncontrast CT. S mall splenule. Gallbladder is surgically absent. Pancreas is normal in contours. No adrenal nodules . Kidneys are normal in size, without hydronephrosis. Left kidney inferior pole nonobstructing calcu li measuring 0.3 cm and 0.3 cm, (6/25). Peritoneum and bowel: Unenhanced bowel loops demonstrate normal wall thickness and caliber. The appe ndix is not seen. There is trace free fluid in the right pelvis. No pneumoperitoneum. Nodes and vessels: No retroperitoneal or mesenteric adenopathy by size criteria. Aorta and inferior vena cava are normal in caliber. Miscellaneous: No ventral hernias. PELVIS: Genitourinary: Bladder wall thickness is normal. Miscellaneous: No inguinal hernias or adenopathy. Bones: No suspicious bony lesions. No vertebral body compression fractures. IMPRESSION: 1. Noobstructing kidney stone. No hydronephrosis. 2. Two left nonobstructing kidney stones. 3. The appendix is not identified. 4. Trace free fluid in the pelvis of uncertain clinical significance. Reviewed by: Juan Luis Vickers MD on 08/16/2020 7:59 PM PST Approved by: Juan Luis Vickers MD on 08/16/2020 7:59 PM PST Station ID: [id number]
[2020-08-16] MEDS ORDERED: oxyCODONE/ACET 5/325 Prepack 4 PO STA (21:33)
[2020-08-16 21:43] VITALS: BP 100/62
== END 2020-08-16 22:03 | disposition home or self-care (01) ==
LOC: ED 17:51
DX: N20.0 Calculus of kidney (principal); R10.31 Right lower quadrant pain; Z90.49 Acquired absence of other specified parts of digestive tract
CPT/HCPCS: 36415; 80053; 81001; 81003; 81025; 83690; 85025; 87086; 96361; 96374; 96375; 96376; 99284

== ENCOUNTER 2020-08-17 16:25 | Emergency (ER) | payer MEDICAID ==
[2020-08-17] MEDS ORDERED: diphenhydrAMINE INJ 50 MG/ML VIAL IVP STA (16:41)
[2020-08-17] MEDS ORDERED: SODIUM CHLORIDE 0.9% 1,000 ML IV STA (16:41)
[2020-08-17] MEDS ORDERED: ONDANSETRON 4 MG/2 ML VIAL IVP STA ×2 (17:15→18:37)
[2020-08-17] MEDS ORDERED: ONDANSETRON 4 MG/2 ML VIAL ONE (17:25)
[2020-08-17] MEDS ORDERED: HYDROmorphone 2 MG/ML VIAL IVP STA (17:48)
[2020-08-17 18:00] LABS: BILIRUBIN,URINE NEGATIVE (NEGATIVE); GLUCOSE, URINE (UA) NEGATIVE (NEGATIVE); KETONES,URINE (UA) NEGATIVE (NEGATIVE); LEUKOCYTE ESTERASE, URINE NEGATIVE (NEGATIVE); NITRITE,URINE NEGATIVE (NEGATIVE); OCCULT BLOOD,URINE NEGATIVE (NEGATIVE); PROTEIN,URINE NEGATIVE (NEGATIVE); UROBILINOGEN,URINE 0.2 (NORMAL) E.U./dL (NORMAL)
[2020-08-17 18:01] LABS: CLARITY,URINE CLEAR (CLEAR)
[2020-08-17] MEDS ORDERED: HYDROmorphone 1 MG/ML CARPUJECT IVP STA (18:36)
[2020-08-17] MEDS ORDERED: LACTATED RINGERS 500 ML IV STA (18:37)
--- NOTE | 2020-08-17 19:00 | ED Physician Documentation ---
PD HPI ABD PAIN - Stated complaint Stated Complaint: BACK PX - Chief complaint Chief Complaint: Abd Pain - History obtained from History obtained from: Patient - Additional information Additional information: 34yF with pmh chronic renal stones, seen here yesterday for nonobstructing stones and discharged on percocet and oral zofran, p/w persistent nausea and back pain. Pt states it is the same intermittent sharp R back pain radiating to flank she attributes to her prior stones, worse with staying still, a/w nausea, gradually worsening today. denies change in quality from yesterday and states she is hoping to "get ahead of the pain". 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: 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 : Other HEENT: Chronic sinusitis Psych: Depression Musculoskeletal: None Derm: None - Past Surgical History Past Surgical History: Yes General: Cholecystectomy, Appendectomy, Gastric surgery Ortho: Other /SCROLL ASSEMBLER: section, Tubal ligation, Hysterectomy, Other Neuro: Craniotomy HEENT: Tonsil/Adenoidectomy - Present Medications Home Medications: Ambulatory Orders Medication Instructions Recorded Confirmed Omeprazole 20 mg PO BID 09/30/18 02/16/20 EPINEPHrine [Epinephrine] 0.3 mg IJ ONCE PRN #2 auto.injct 05/09/19 02/16/20 Sucralfate 1 gm PO AC 30 Days #90 tablet 09/19/19 02/16/20 Acetaminophen [Tylenol Extra 1,000 mg PO Q6HR PRN MDD 4000mg 02/16/20 02/16/20 Strength] Albuterol Sulfate [Proair Hfa 1 - 2 puffs INH Q4H PRN 02/16/20 02/16/20 Inhaler] Ondansetron [Ondansetron Odt] 4 mg PO BID 02/16/20 02/16/20 Ranitidine 150 mg PO BID 02/16/20 02/16/20 diphenhydrAMINE [Benadryl] 25 - 50 mg PO PRN PRN 02/16/20 02/16/20 Cefdinir 300 mg PO BID #20 capsule 06/19/20 Ondansetron Odt [Zofran] 4 mg TL Q6H PRN #10 tablet 06/19/20 Oxycodone HCl/Acetaminophen 1 - 2 each PO Q6H PRN #14 tablet 06/19/20 [Percocet 5-325 mg Tablet] Ciprofloxacin [Cipro] 250 mg PO Q12H #6 tablet 06/26/20 Meclizine [Antivert] 25 mg PO Q6H PRN #15 tablet 06/26/20 Ondansetron Odt [Zofran] 4 mg TL Q6H PRN #10 tab 08/16/20 Oxycodone HCl/Acetaminophen 1 - 2 each PO Q6H PRN #14 tab 08/16/20 [Percocet 5-325 mg Tablet] - Allergies Allergies/Adverse Reactions: Allergies Allergy/AdvReac Type Severity Reaction Status Date / Time aspirin Allergy Severe Anaphylaxis Verified 08/17/20 16:36 hydromorphone HCl * Allergy Severe Hives Verified 08/17/20 16:36 [From Dilaudid] morphine Allergy Severe Hives Verified 08/17/20 16:36 nitrofurantoin Allergy Severe Respiratory Verified 08/17/20 16:36 macrocrystalline * [From Macrobid] acetaminophen [From Ofirmev] Allergy Hives Verified 08/17/20 16:36 amoxicillin Allergy Anaphylaxis Verified 08/17/20 16:36 doxycycline Allergy Hives Verified 08/17/20 16:36 famotidine [From Pepcid] Allergy Anaphylaxis Verified 08/17/20 16:36 fentanyl Allergy Unknown Verified 08/17/20 16:36 fluconazole Allergy Hives Verified 06/26/20 10:59 lidocaine Allergy Unknown Verified 06/26/20 10:59 meperidine HCl * Allergy Anaphylaxis Verified 08/17/20 16:36 [From Demerol] Penicillins Allergy Anaphylaxis Verified 08/17/20 16:36 prednisone Allergy Anaphylaxis Verified 08/17/20 16:36 tamsulosin HCl * Allergy Unknown Verified 08/17/20 16:36 [From Flomax] trimethoprim [From Bactrim] Allergy Hives Verified 08/17/20 16:36 wheat Allergy Hives Verified 08/17/20 16:36 hydrocodone [Hydrocodone] AdvReac Severe Emesis Verified 08/17/20 16:36 butorphanol AdvReac Intermediate Anxiety Verified 08/17/20 16:36 adhesive AdvReac Rash Verified 08/17/20 16:36 [place] And Derivatives AdvReac Nausea Verified 08/17/20 16:36 egg AdvReac Nausea Verified 08/17/20 16:36 fexofenadine AdvReac Edema Verified 08/17/20 16:36 milk AdvReac Nausea Verified 08/17/20 16:36 NSAIDS (Non-Steroidal AdvReac Cramps Verified 08/17/20 16:36 Anti-Inflamma - Social History Does the pt smoke?: No Smoking Status: Never smoker Does the pt drink ETOH?: No Does the pt have substance abuse?: No - Immunizations Immunizations are current?: Yes - POLST Patient has POLST: No POLST Status: Full Code PD ED PE NORMAL - Vitals Vital signs reviewed: Yes - General General: Alert and oriented X 3, Well developed/nourished, Other (mild emotional and physical distress) - HEENT HEENT: Atraumatic, PERRL, EOMI, Moist mucous membranes - Neck Neck: Supple, no meningeal sign - Cardiac Cardiac: RRR - Respiratory Respiratory: No respiratory distress, Clear bilaterally - Abdomen Abdomen: Non tender, Non distended - Female Female : Deferred - Rectal Rectal: Deferred - Back Back: Other (R CVA ttp) - Derm Derm: Normal color, Warm and dry - Extremities Extremities: No deformity - Neuro Neuro: Alert and oriented X 3 - Psych Psych: Normal mood, Normal affect Results - Vitals Vitals: Vital Signs - 24 hr 08/17/20 08/17/20 08/17/20 16:28 17:01 19:05 Temperature 37.6 C Heart Rate 76 84 65 Respiratory 20 18 Rate Blood Pressure 148/100 H 111/74 92/54 L O2 Saturation 98 100 97 Oxygen O2 Source Room air - Labs Labs: Laboratory Tests 08/17/20 17:36 Urine Color YELLOW Urine Clarity CLEAR Urine pH 6.0 Ur Specific [place] 1.015 Urine Protein NEGATIVE Urine Glucose (UA) NEGATIVE Urine Ketones NEGATIVE Urine Occult Blood NEGATIVE Urine Nitrite NEGATIVE Urine Bilirubin NEGATIVE Urine Urobilinogen 0.2 (NORMAL) Ur Leukocyte Esterase NEGATIVE Ur Microscopic Review NOT INDICATED Urine Culture Comments NOT INDICATED PD MEDICAL DECISION MAKING - ED course ED course: 34yF presented with persistent pain and nausea attributed to her kidney stones, improving with symptomatic care. After IV pain meds/antiemetics she was able to tolerate oral fluids and requested to go home to rest. strict return precautions given. 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 Dougherty at [facility]. Departure - Departure Disposition: 01 Home, Self Care Clinical Impression: Kidney calculi, Nausea and vomiting, Back pain Condition: Good Instructions: Kidney Stones Follow-Up: Genia Richard MD [Physician No Access] - Comments: You were Discharge Date/Time: 08/17/20 19:15
[2020-08-17 19:06] VITALS: BP 92/54
== END 2020-08-17 19:15 | disposition home or self-care (01) ==
LOC: ED 16:25
DX: N20.0 Calculus of kidney (principal); R11.2 Nausea with vomiting, unspecified; M54.9 Dorsalgia, unspecified
CPT/HCPCS: 81003; 96361; 96374; 96375; 96376; 99283; 99284; J1170; J1200; J7120; 80053; 81001; 83690; 85025; 87086

== ENCOUNTER 2020-08-21 13:11 | Emergency (ER) | payer MEDICAID ==
[2020-08-21 13:28] LABS: MUDS CUTOFF CONCENTRATIONS CUTOFF CONC BELOW:
[2020-08-21] MEDS ORDERED: SODIUM CHLORIDE 0.9% 1,000 ML IV STA (13:42)
[2020-08-21] MEDS ORDERED: oxyCODONE 5 MG TABLET PO STA ×2 (13:42→14:50)
[2020-08-21] MEDS ORDERED: ONDANSETRON 4 MG/2 ML VIAL IVP STA ×2 (13:42→15:04)
[2020-08-21 13:43] LABS: BILIRUBIN,URINE NEGATIVE (NEGATIVE); GLUCOSE, URINE (UA) NEGATIVE (NEGATIVE); KETONES,URINE (UA) NEGATIVE (NEGATIVE); LEUKOCYTE ESTERASE, URINE NEGATIVE (NEGATIVE); NITRITE,URINE NEGATIVE (NEGATIVE); OCCULT BLOOD,URINE NEGATIVE (NEGATIVE); PH,URINE 6.5 PH (5.0-7.5); PROTEIN,URINE NEGATIVE (NEGATIVE); UROBILINOGEN,URINE 0.2 (NORMAL) E.U./dL (NORMAL)
--- NOTE | 2020-08-21 13:47 | ED Physician Documentation ---
PD HPI ABD PAIN - Stated complaint Stated Complaint: KIDNEY PAIN - Chief complaint Chief Complaint: Abd Pain - History obtained from History obtained from: Patient - Additional information Additional information: 2 weeks of right flank and right abdominal pain associated with nausea. She was seen for this twice, had normal blood work, normal urinalyses, and a CT with contrast suffered poisoning. She had nonobstructing stones on the left and I think the communication of this to her, she felt like the pain was from the stones. I discussed with her that the pain was not from kidney stones, there was no ureterolithiasis on the right. She continues to have the pain and wakes up every night from it. She has a complex medical history for age with multiple abdominal surgeries related to ulcers. A hysterectomy remotely. She was also had her gallbladder out. 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 : Other HEENT: Chronic sinusitis Psych: Depression Musculoskeletal: None Derm: None - Past Surgical History Past Surgical History: Yes General: Cholecystectomy, Appendectomy, Gastric surgery Ortho: Other /CRIB PAD MAKER: section, Tubal ligation, Hysterectomy, Other Neuro: Craniotomy HEENT: Tonsil/Adenoidectomy - Present Medications Home Medications: Ambulatory Orders Medication Instructions Recorded Confirmed Omeprazole 20 mg PO BID 09/30/18 08/21/20 EPINEPHrine [Epinephrine] 0.3 mg IJ ONCE PRN #2 auto.injct 05/09/19 08/21/20 Sucralfate 1 gm PO AC 30 Days #90 tablet 09/19/19 08/21/20 Acetaminophen [Tylenol Extra 1,000 mg PO Q6HR PRN MDD 4000mg 02/16/20 08/21/20 Strength] Albuterol Sulfate [Proair Hfa 1 - 2 puffs INH Q4H PRN 02/16/20 08/21/20 Inhaler] Ondansetron [Ondansetron Odt] 4 mg PO BID 02/16/20 08/21/20 Ranitidine 150 mg PO BID 02/16/20 08/21/20 diphenhydrAMINE [Benadryl] 25 - 50 mg PO PRN PRN 02/16/20 08/21/20 Cefdinir 300 mg PO BID #20 capsule 06/19/20 08/21/20 Ondansetron Odt [Zofran] 4 mg TL Q6H PRN #10 tablet 06/19/20 08/21/20 Oxycodone HCl/Acetaminophen 1 - 2 each PO Q6H PRN #14 tablet 06/19/20 08/21/20 [Percocet 5-325 mg Tablet] Ciprofloxacin [Cipro] 250 mg PO Q12H #6 tablet 06/26/20 08/21/20 Meclizine [Antivert] 25 mg PO Q6H PRN #15 tablet 06/26/20 08/21/20 Ondansetron Odt [Zofran] 4 mg TL Q6H PRN #10 tab 08/16/20 08/21/20 Oxycodone HCl/Acetaminophen 1 - 2 each PO Q6H PRN #14 tab 08/16/20 08/21/20 [Percocet 5-325 mg Tablet] Dicyclomine [Bentyl] 1 - 2 tab PO QID PRN #20 cap 08/21/20 - Allergies Allergies/Adverse Reactions: Allergies Allergy/AdvReac Type Severity Reaction Status Date / Time aspirin Allergy Severe Anaphylaxis Verified 08/21/20 13:16 hydromorphone HCl * Allergy Severe Hives Verified 08/21/20 13:16 [From Dilaudid] morphine Allergy Severe Hives Verified 08/21/20 13:16 nitrofurantoin Allergy Severe Respiratory Verified 08/21/20 13:16 macrocrystalline * [From Macrobid] acetaminophen [From Ofirmev] Allergy Hives Verified 08/21/20 13:16 amoxicillin Allergy Anaphylaxis Verified 08/21/20 13:16 doxycycline Allergy Hives Verified 08/21/20 13:16 famotidine [From Pepcid] Allergy Anaphylaxis Verified 08/21/20 13:16 fentanyl Allergy Unknown Verified 08/21/20 13:16 fluconazole Allergy Hives Verified 08/21/20 13:16 lidocaine Allergy Unknown Verified 08/21/20 13:16 meperidine HCl * Allergy Anaphylaxis Verified 08/21/20 13:16 [From Demerol] Penicillins Allergy Anaphylaxis Verified 08/21/20 13:16 prednisone Allergy Anaphylaxis Verified 08/21/20 13:16 tamsulosin HCl * Allergy Unknown Verified 08/21/20 13:16 [From Flomax] trimethoprim [From Bactrim] Allergy Hives Verified 08/21/20 13:16 wheat Allergy Hives Verified 08/21/20 13:16 hydrocodone [Hydrocodone] AdvReac Severe Emesis Verified 08/21/20 13:16 butorphanol AdvReac Intermediate Anxiety Verified 08/21/20 13:16 adhesive AdvReac Rash Verified 08/21/20 13:16 [place] And Derivatives AdvReac Nausea Verified 08/21/20 13:16 egg AdvReac Nausea Verified 08/21/20 13:16 fexofenadine AdvReac Edema Verified 08/21/20 13:16 milk AdvReac Nausea Verified 08/21/20 13:16 NSAIDS (Non-Steroidal AdvReac Cramps Verified 08/21/20 13:16 Anti-Inflamma - Social History Does the pt smoke?: No Smoking Status: Never smoker Does the pt drink ETOH?: No Does the pt have substance abuse?: No - Immunizations Immunizations are current?: Yes - POLST Patient has POLST: No POLST Status: Full Code PD ED PE NORMAL - Vitals Vital signs reviewed: Yes - General General: Alert and oriented X 3, Other (She is tearful due to pain) - HEENT HEENT: PERRL, EOMI - Neck Neck: Supple, no meningeal sign, No bony TTP - Cardiac Cardiac: RRR, No murmur - Respiratory Respiratory: No respiratory distress, Clear bilaterally - Abdomen Abdomen: Other (Mild right abdominal and flank tenderness without surgical signs. No rashes.) - Derm Derm: Normal color, Warm and dry - Extremities Extremities: No edema, No calf tenderness / cord - Neuro Neuro: Alert and oriented X 3, Normal speech Results - Vitals Vitals: Vital Signs - 24 hr 08/21/20 08/21/20 08/21/20 13:14 14:06 14:15 Temperature 36.6 C Heart Rate 82 77 70 Respiratory 20 18 29 H Rate Blood Pressure 103/67 102/60 O2 Saturation 97 100 100 08/21/20 16:15 Temperature 36.2 C L Heart Rate 77 Respiratory 19 Rate Blood Pressure 109/66 O2 Saturation 100 Oxygen O2 Source Room air - Labs Labs: Laboratory Tests 0308/21/20 08/21/20 13:25 13:58 13:58 WBC 7.4 RBC 4.64 Hgb 14.1 Hct 42.9 MCV 92.5 MCH 30.4 MCHC 32.9 RDW 12.6 Plt Count 257 MPV 12.2 H Neut # (Auto) 4.0 Lymph # (Auto) 2.2 [place] # (Auto) 0.5 Eos # (Auto) 0.7 Baso # (Auto) 0.1 Absolute Nucleated RBC 0.00 Nucleated RBC % 0.0 Sodium 139 Potassium 4.1 Chloride 103 Carbon Dioxide 25 Anion Gap 11.0 BUN 12 Creatinine 0.6 Estimated GFR (MDRD) 114 Glucose 86 Calcium 9.5 Total Bilirubin 0.5 AST 25 ALT 32 Alkaline Phosphatase 37 L Total Protein 7.6 Albumin 4.4 Globulin 3.2 Albumin/Globulin Ratio 1.4 Lipase 31 Urine Color YELLOW Urine Clarity CLEAR Urine pH 6.5 Ur Specific [place] 1.020 Urine Protein NEGATIVE Urine Glucose (UA) NEGATIVE Urine Ketones NEGATIVE Urine Occult Blood NEGATIVE Urine Nitrite NEGATIVE Urine Bilirubin NEGATIVE Urine Urobilinogen 0.2 (NORMAL) Ur Leukocyte Esterase NEGATIVE Ur Microscopic Review NOT INDICATED Urine Culture Comments NOT INDICATED Urine HCG, Qual NEGATIVE Urine Opiates Screen NEGATIVE Ur Oxycodone Screen POSITIVE H Urine Methadone Screen NEGATIVE Ur Propoxyphene Screen NEGATIVE Ur Barbiturates Screen NEGATIVE Ur Tricyclics Screen NEGATIVE Ur Phencyclidine Scrn NEGATIVE Ur Amphetamine Screen NEGATIVE U Methamphetamines Scrn NEGATIVE U Benzodiazepines Scrn NEGATIVE Urine Cocaine Screen NEGATIVE U Cannabinoids Screen NEGATIVE PD MEDICAL DECISION MAKING - ED course ED course: This is a 34-year-old woman who has a complicated medical history of but also some pain issues who presents with unexplained right flank and right upper quadrant pain with relatively benign exam. She has an exaggerated pain response and is crying and moaning. Previous records were reviewed, she has had 2 CTs in the last couple of months without IV contrast without specific finding for this pain. Her labs are unremarkable. I discussed with her that I was loath to scan her again given that she has had many many CTs in the past given her relatively young age. She feels something is truly wrong and needs to be addressed and as such we will repeat the CAT scan at this time with contrast. The CT with contrast shows may be a mild enteritis which really does not fit her symptoms. We will trial some dicyclomine for this. I would like to stop giving her so much in the way of narcotics from the emergency department without objective findings. Departure - Departure Disposition: 01 Home, Self Care Condition: Stable Record reviewed to determine appropriate education?: Yes Instructions: ED Abdominal Pain Unkn Cause Prescriptions: Dicyclomine [Bentyl] 1 - 2 tab PO QID PRN #20 cap PRN Reason: Abdominal Pain Comments: As discussed, you do not have an active kidney stone causing your pain. Your urinalyses and labs have been normal, no kidney infection. We did the CT today with contrast, there is some mild inflammation of your bowel. For that I am prescribing dicyclomine. You need to follow-up with your primary care physician. The policy of this emergency department is to not give more than 3 prescriptions for narcotics or other controlled substances in any 1 year. You have already surpassed this benchmark and we cannot prescribe narcotics for you. I encourage you to follow up with your primary care physician or to establish care with a primary care physician for ongoing pain management. You are always welcome to seek emergency care here for this or new issues but there will likely be limitations in the prescription of narcotic pain medication. Discharge Date/Time: 08/21/20 16:28
[2020-08-21 13:49] LABS: CLARITY,URINE CLEAR (CLEAR); HCG UR QUAL NEGATIVE
[2020-08-21 13:51] LABS: COCAINE SCREEN URINE NEGATIVE (NEGATIVE); THC CANNABINOID SCREEN, URINE NEGATIVE (NEGATIVE)
[2020-08-21 13:52] LABS: AMPHETAMINE SCREEN,URINE NEGATIVE (NEGATIVE); BARBITURATE SCREEN,UR NEGATIVE (NEGATIVE); BENZODIAZEPINES SCREEN, URINE NEGATIVE (NEGATIVE); METHADONE SCREEN, URINE NEGATIVE (NEGATIVE); METHAMPHETAMINES SCREEN, URINE NEGATIVE (NEGATIVE); OPIATE SCREEN, URINE NEGATIVE (NEGATIVE); OXYCODONE SCREEN, URINE POSITIVE (NEGATIVE); PROPOXYPHENE SCREEN, URINE NEGATIVE (NEGATIVE); TRICYCLIC ANTIDEPRESSANT,URINE NEGATIVE (NEGATIVE)
[2020-08-21 14:27] LABS: BASOPHILS # (AUTO) 0.1 10^3/uL (0.0-0.1); BASOPHILS % (AUTO) 1.1 %; EOSINOPHILS # (AUTO) 0.7 10^3/uL (0.0-0.7); EOSINOPHILS % (AUTO) 9.1 %; HCT - HEMATOCRIT 42.9 % (37.0-47.0); HGB - HEMOGLOBIN 14.1 g/dL (12.0-16.0); LYMPHOCYTES # (AUTO) 2.2 10^3/uL (1.5-3.5); LYMPHOCYTES % (AUTO) 29.3 %; MEAN CORPUSCULAR HEMOGLOBIN 30.4 pg (27.0-31.0); MEAN CORPUSCULAR HGB CONC 32.9 g/dL (32.0-36.0); MEAN CORPUSCULAR VOLUME 92.5 fL (81.0-99.0); MEAN PLATELET VOLUME 12.2 fL (7.9-10.8); MONOCYTES # (AUTO) 0.5 10^3/uL (0.0-1.0); MONOCYTES % (AUTO) 6.6 %; NEUTROPHILS % (AUTO) 53.8 %; PLT - PLATELET COUNT 257 10^3/uL (130-450); RED BLOOD COUNT 4.64 10^6/uL (4.20-5.40); RED CELL DISTRIBUTION WIDTH 12.6 % (12.0-15.0); WHITE BLOOD COUNT 7.4 x10^3/uL (4.8-10.8)
[2020-08-21 14:40] LABS: ALBUMIN 4.4 g/dL (3.2-5.5); ALBUMIN/GLOBULIN RATIO 1.4 (1.0-2.2); BILIRUBIN,TOTAL 0.5 mg/dL (0.2-1.0); CALCIUM 9.5 mg/dL (8.5-10.3); CREATININE 0.6 mg/dL (0.4-1.0); POTASSIUM 4.1 mmol/L (3.5-5.0); TOTAL PROTEIN 7.6 g/dL (6.7-8.2)
[2020-08-21] MEDS ORDERED: diphenhydrAMINE INJ 50 MG/ML VIAL IVP STA (15:04)
[2020-08-21] MEDS ORDERED: IOVERSOL 320 100 ML VIAL IVP ONE ×2 (15:28→15:37)
--- NOTE | 2020-08-21 15:44 | CT Report ---
PROCEDURE: Abdomen/Pelvis W INDICATIONS: IV only, RUQ/R flank pain CONTRAST: IV CONTRAST: Optiray 320 ml: 100 PO CONTRAST: *NO PO CONTRAST TECHNIQUE: After the administration of intravenous contrast, 5 mm thick sections acquired from the diaphragms to the symphysis. 5 mm thick coronal and sagittal reformats were acquired. For radiation dose reducti on, the following was used: automated exposure control, adjustment of mA and/or kV according to arnoldo ent size. COMPARISON: 08/16/2020 and 06/19/2020 CT abdomen and pelvis FINDINGS: Image quality: Excellent. ABDOMEN: Lung bases: Lung bases are clear. Heart size is normal. Solid organs: Liver and spleen are normal in size and enhancement. Gallbladder has been removed. B iliary system is non dilated. Pancreas enhances normally. No adrenal nodules. Kidneys demonstrate normal size and enhancement, without hydronephrosis. Unchanged right inferior pole renal calculus. Peritoneum and bowel: There are few mildly distended and fluid-filled loops of small bowel with muco teresa hyperenhancement and submucosal edema in the left upper quadrant. Bowel loops otherwise demonstra te normal wall thickness and caliber. No free fluid or air. Nodes and vessels: No retroperitoneal or mesenteric adenopathy by size criteria. Aorta and inferior vena cava are normal in size. Miscellaneous: No ventral hernias. PELVIS: Genitourinary: Bladder wall thickness is normal. Miscellaneous: No inguinal hernias or adenopathy. Bones: No suspicious bony lesions. No vertebral body compression fractures. IMPRESSION: There are few mildly distended and fluid-filled loops of small bowel with mucosal hyperenhancement an d submucosal edema, which in the appropriate clinical setting could reflect infectious or inflammator y enteritis No findings to explain right flank/abdominal pain otherwise. Reviewed by: Jason Calvin MD on 08/21/2020 3:43 PM PST Approved by: Jason Calvin MD on 08/21/2020 3:43 PM PST Station ID: [id number]
[2020-08-21 16:15] VITALS: BP 109/66
== END 2020-08-21 16:28 | disposition home or self-care (01) ==
LOC: ED 13:11
DX: K52.9 Noninfective gastroenteritis and colitis, unspecified (principal); R10.11 Right upper quadrant pain; Z87.11 Personal history of peptic ulcer disease; Z90.49 Acquired absence of other specified parts of digestive tract; Z90.710 Acquired absence of both cervix and uterus
CPT/HCPCS: 36415; 74177; 80053; 80306; 81003; 81025; 83690; 85025; 96361; 96374; 96375; 96376; 99283; 99284; A9270; J1200; Q9967; 81001; 87086

== ENCOUNTER 2020-08-31 08:00 | Outpatient (CLI) | payer MEDICAID ==
[2020-08-31 20:42] LABS: BASOPHILS # (AUTO) 0.1 10^3/uL (0.0-0.1); BASOPHILS % (AUTO) 0.8 %; EOSINOPHILS # (AUTO) 0.6 10^3/uL (0.0-0.7); EOSINOPHILS % (AUTO) 7.6 %; HCT - HEMATOCRIT 41.8 % (37.0-47.0); HGB - HEMOGLOBIN 13.6 g/dL (12.0-16.0); LYMPHOCYTES % (AUTO) 26.5 %; MEAN CORPUSCULAR HEMOGLOBIN 30.4 pg (27.0-31.0); MEAN CORPUSCULAR HGB CONC 32.5 g/dL (32.0-36.0); MEAN CORPUSCULAR VOLUME 93.5 fL (81.0-99.0); MEAN PLATELET VOLUME 12.3 fL (7.9-10.8); MONOCYTES # (AUTO) 0.4 10^3/uL (0.0-1.0); NEUTROPHILS # (AUTO) 4.5 10^3/uL (1.5-6.6); PLT - PLATELET COUNT 308 10^3/uL (130-450); RED BLOOD COUNT 4.47 10^6/uL (4.20-5.40); RED CELL DISTRIBUTION WIDTH 12.4 % (12.0-15.0); WHITE BLOOD COUNT 7.4 x10^3/uL (4.8-10.8)
[2020-08-31 20:52] LABS: ALBUMIN/GLOBULIN RATIO 1.3 (1.0-2.2); BILIRUBIN,TOTAL 0.4 mg/dL (0.2-1.0); CALCIUM 9.3 mg/dL (8.5-10.3); CREATININE 0.6 mg/dL (0.4-1.0); POTASSIUM 3.7 mmol/L (3.5-5.0); TOTAL PROTEIN 7.1 g/dL (6.7-8.2)
== END 2020-08-31 23:59 | disposition home or self-care (01) ==
LOC: LAB.N 08:00
PROVIDERS: ATTEND Family Medicine
DX: K62.5 Hemorrhage of anus and rectum (principal); R10.9 Unspecified abdominal pain
CPT/HCPCS: 36415; 80053; 85025

== ENCOUNTER 2020-11-05 12:53 | Outpatient (CLI) | payer MEDICAID | END 2020-11-05 12:54 | disposition critical access hospital (66) | LOC: EMS 12:53 | DX: L50.9 Urticaria, unspecified (principal); R06.00 Dyspnea, unspecified; R11.10 Vomiting, unspecified | CPT/HCPCS: A0425; A0427; A0999 ==

== ENCOUNTER 2020-11-05 13:10 | Emergency (ER) | payer MEDICAID ==
[2020-11-05] MEDS ORDERED: EPINEPHrine 1 MG/ML AMP ONE (13:18)
[2020-11-05] MEDS ORDERED: diphenhydrAMINE INJ 50 MG/ML VIAL ONE (13:19)
[2020-11-05] MEDS ORDERED: methylPREDNISolone SUCCINATE 125 MG/2 ML VIAL IVP STA (13:29)
[2020-11-05] MEDS ORDERED: LORazepam 2 MG/ML VIAL IVP STA (13:29)
--- NOTE | 2020-11-05 13:32 | ED Physician Documentation ---
History of Present Illness - Stated complaint Stated Complaint: ALLERGIC REACTION - Chief complaint Chief Complaint: Allergic Rx - History obtained from History obtained from: Patient, EMS - History of Present Illness Timing: Today Pain level max: 0 Pain level now: 0 - Additonal information Additional information: Patient is a 34-year-old female who presents to the emergency department Having an allergic reaction today. This is common for her. She did not have her albuterol or epinephrine pen with her today. She was given epinephrine and Benadryl by EMS. Currently feeling better. She states she had difficulty breathing. She was also given albuterol treatment with EMS. Has not yet been given steroids. Nothing makes this worse, medications have seemed to make it better. Review of Systems Ten Systems: 10 systems reviewed and negative Constitutional: denies: Fever, Chills Throat: denies: Sore throat Cardiac: denies: Chest pain / pressure Respiratory: reports: Dyspnea. 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: 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 : Other HEENT: Chronic sinusitis Psych: Depression Musculoskeletal: None Derm: None - Past Surgical History Past Surgical History: Yes General: Cholecystectomy, Appendectomy, Gastric surgery Ortho: Other /SCRAP BUNCH MAKER: section, Tubal ligation, Hysterectomy, Other Neuro: Craniotomy HEENT: Tonsil/Adenoidectomy - Present Medications Home Medications: Ambulatory Orders Medication Instructions Recorded Confirmed Omeprazole 20 mg PO BID 09/30/18 08/21/20 Sucralfate 1 gm PO AC 30 Days #90 tablet 09/19/19 08/21/20 Acetaminophen [Tylenol Extra 1,000 mg PO Q6HR PRN MDD 4000mg 02/16/20 08/21/20 Strength] Albuterol Sulfate [Proair Hfa 1 - 2 puffs INH Q4H PRN 02/16/20 08/21/20 Inhaler] Ondansetron [Ondansetron Odt] 4 mg PO BID 02/16/20 08/21/20 Ranitidine 150 mg PO BID 02/16/20 08/21/20 diphenhydrAMINE [Benadryl] 25 - 50 mg PO PRN PRN 02/16/20 08/21/20 Cefdinir 300 mg PO BID #20 capsule 06/19/20 08/21/20 Ondansetron Odt [Zofran] 4 mg TL Q6H PRN #10 tablet 06/19/20 08/21/20 Oxycodone HCl/Acetaminophen 1 - 2 each PO Q6H PRN #14 tablet 06/19/20 08/21/20 [Percocet 5-325 mg Tablet] Ciprofloxacin [Cipro] 250 mg PO Q12H #6 tablet 06/26/20 08/21/20 Meclizine [Antivert] 25 mg PO Q6H PRN #15 tablet 06/26/20 08/21/20 Oxycodone HCl/Acetaminophen 1 - 2 each PO Q6H PRN #14 tab 08/16/20 08/21/20 [Percocet 5-325 mg Tablet] Dicyclomine [Bentyl] 1 - 2 tab PO QID PRN #20 cap 08/21/20 EPINEPHrine [Epinephrine] 0.3 mg IJ ONCE PRN #2 syr 11/05/20 Methylprednisolone [Medrol] 8 mg PO DAILY PRN #7 tablet 11/05/20 Ondansetron Odt [Zofran Odt] 4 mg TL Q6H PRN #10 tab 11/05/20 - Allergies Allergies/Adverse Reactions: Allergies Allergy/AdvReac Type Severity Reaction Status Date / Time aspirin Allergy Severe Anaphylaxis Verified 11/05/20 13:21 hydromorphone HCl * Allergy Severe Hives Verified 11/05/20 13:21 [From Dilaudid] morphine Allergy Severe Hives Verified 11/05/20 13:21 nitrofurantoin Allergy Severe Respiratory Verified 11/05/20 13:21 macrocrystalline * [From Macrobid] acetaminophen [From Ofirmev] Allergy Hives Verified 11/05/20 13:21 amoxicillin Allergy Anaphylaxis Verified 11/05/20 13:21 doxycycline Allergy Hives Verified 11/05/20 13:21 famotidine [From Pepcid] Allergy Anaphylaxis Verified 11/05/20 13:21 fentanyl Allergy Unknown Verified 11/05/20 13:21 fluconazole Allergy Hives Verified 11/05/20 13:21 lidocaine Allergy Unknown Verified 11/05/20 13:21 meperidine HCl * Allergy Anaphylaxis Verified 11/05/20 13:21 [From Demerol] Penicillins Allergy Anaphylaxis Verified 11/05/20 13:21 prednisone Allergy Anaphylaxis Verified 11/05/20 13:21 tamsulosin HCl * Allergy Unknown Verified 11/05/20 13:21 [From Flomax] trimethoprim [From Bactrim] Allergy Hives Verified 11/05/20 13:21 wheat Allergy Hives Verified 11/05/20 13:21 hydrocodone [Hydrocodone] AdvReac Severe Emesis Verified 11/05/20 13:21 butorphanol AdvReac Intermediate Anxiety Verified 11/05/20 13:21 adhesive AdvReac Rash Verified 11/05/20 13:21 [place] And Derivatives AdvReac Nausea Verified 11/05/20 13:21 egg AdvReac Nausea Verified 11/05/20 13:21 fexofenadine AdvReac Edema Verified 11/05/20 13:21 milk AdvReac Nausea Verified 11/05/20 13:21 NSAIDS (Non-Steroidal AdvReac Cramps Verified 11/05/20 13:21 Anti-Inflamma - Social History Does the pt smoke?: No Smoking Status: Never smoker Does the pt drink ETOH?: No Does the pt have substance abuse?: No - Immunizations Immunizations are current?: Yes - POLST Patient has POLST: No POLST Status: Full Code PD ED PE NORMAL - Vitals Vital signs reviewed: Yes - General General: Alert and oriented X 3, No acute distress, Well developed/nourished - HEENT HEENT: PERRL, Moist mucous membranes, Pharynx benign - Neck Neck: Supple, no meningeal sign - Cardiac Cardiac: RRR, Strong equal pulses - Respiratory Respiratory: No respiratory distress, Clear bilaterally - Abdomen Abdomen: Soft, Non tender, Non distended - Derm Derm: Warm and dry, No rash - Extremities Extremities: No edema, No calf tenderness / cord - Neuro Neuro: Alert and oriented X 3 - Psych Psych: Normal mood, Normal affect Results - Vitals Vitals: Vital Signs - 24 hr 11/05/20 11/05/20 11/05/20 13:20 13:25 13:31 Temperature 37.0 C Heart Rate 114 H 102 H 98 Respiratory 18 20 20 Rate Blood Pressure 121/73 121/73 100/66 O2 Saturation 99 100 98 11/05/20 13:58 Temperature Heart Rate 110 H Respiratory 12 Rate Blood Pressure 102/64 O2 Saturation 98 Oxygen O2 Source Room air PD MEDICAL DECISION MAKING - ED course Complexity details: reviewed old records, re-evaluated patient, considered differential, d/w patient ED course: Patient was observed in the emergency department with full resolution of symptoms and no recurrence. Given Solu-Medrol and Ativan here. We will prescribe epinephrine pens for home as well as Medrol and Zofran. Patient counseled regarding signs and symptoms for which I believe and urgent re- evaluation would be necessary. Patient with good understanding of and agreement to plan and is comfortable going home at this time This document was made in part using voice recognition software. While efforts are made to proofread this document, sound alike and grammatical errors may occur. Departure - Departure Disposition: Home, Self Care Clinical Impression: Allergic reaction Qualifiers: Encounter type: initial encounter Qualified Code(s): T78.40XA - Allergy, unspecified, initial encounter Condition: Good Instructions: ED Allergic Reaction General Other Follow-Up: your,doctor in 1week [Other] Prescriptions: EPINEPHrine [Epinephrine] 0.3 mg IJ ONCE PRN #2 syr PRN Reason: Allergy Symptoms Methylprednisolone [Medrol] 8 mg PO DAILY PRN #7 tablet PRN Reason: Allergy Symptoms Ondansetron Odt [Zofran Odt] 4 mg TL Q6H PRN #10 tab PRN Reason: Nausea / Vomiting Comments: Follow-up with your doctor for further care. Return if you worsen. Use the medications as prescribed. Forms: Activity restrictions
[2020-11-05 14:41] VITALS: BP 104/75
== END 2020-11-05 14:41 | disposition home or self-care (01) ==
LOC: EDUNIT# → ED 13:10
DX: T78.40XA Allergy, unspecified, initial encounter (principal); R06.00 Dyspnea, unspecified; R21 Rash and other nonspecific skin eruption
CPT/HCPCS: 96374; 96375; 99283; 99284; J1200; J2060

== ENCOUNTER 2020-11-07 14:26 | Outpatient (CLI) | payer MEDICAID | END 2020-11-07 14:27 | disposition critical access hospital (66) | LOC: EMS 14:26 | DX: R07.1 Chest pain on breathing (principal) | CPT/HCPCS: A0425; A0427; A0999 ==

== ENCOUNTER 2020-11-07 14:49 | Emergency (ER) | payer MEDICAID ==
[2020-11-07] MEDS ORDERED: LORazepam 2 MG/ML VIAL IVP STA (15:11)
--- NOTE | 2020-11-07 15:15 | ED Physician Documentation ---
History of Present Illness - Stated complaint Stated Complaint: CP - Chief complaint Chief Complaint: General - Additonal information Additional information: 34-year-old female presents the emergency department for evaluation of 3 days pleuritic chest pain. She reports that it hurts every time she attempts to take a deep breath. She was seen here 2 days ago after an allergic reaction is currently completing a 7-day course of methylprednisolone. Patient denies any unilateral leg swelling, no hormone use. No history of blood clots or cancer though she does report that an uncle due to a blood clot after surgery. On exam she is somewhat tachypneic states that she is beginning to feel tingling in her arms or legs. She also appears acutely anxious. Review of Systems Constitutional: denies: Fever, Chills Eyes: reports: Reviewed and negative Nose: reports: Reviewed and negative Throat: reports: Reviewed and negative Cardiac: reports: Chest pain / pressure. denies: Palpitations, Pedal edema, Calf pain Respiratory: reports: Dyspnea. 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 : Other HEENT: Chronic sinusitis Psych: Depression Musculoskeletal: None Derm: None - Past Surgical History Past Surgical History: Yes General: Cholecystectomy, Appendectomy, Gastric surgery Ortho: Other /MANAGER MARKET: section, Tubal ligation, Hysterectomy, Other Neuro: Craniotomy HEENT: Tonsil/Adenoidectomy - Present Medications Home Medications: Ambulatory Orders Medication Instructions Recorded Confirmed Omeprazole 20 mg PO BID 09/30/18 11/07/20 Sucralfate 1 gm PO AC 30 Days #90 tablet 09/19/19 11/07/20 Acetaminophen [Tylenol Extra 1,000 mg PO Q6HR PRN MDD 4000mg 02/16/20 11/07/20 Strength] Albuterol Sulfate [Proair Hfa 1 - 2 puffs INH Q4H PRN 02/16/20 11/07/20 Inhaler] diphenhydrAMINE [Benadryl] 25 - 50 mg PO PRN PRN 02/16/20 11/07/20 Ondansetron Odt [Zofran] 4 mg TL Q6H PRN #10 tablet 06/19/20 11/07/20 EPINEPHrine [Epinephrine] 0.3 mg IJ ONCE PRN #2 syr 11/05/20 11/07/20 Methylprednisolone [Medrol] 8 mg PO DAILY PRN #7 tablet 11/05/20 11/07/20 EPINEPHrine [Epinephrine] 0.3 mg IJ ONCE PRN #1 syr 11/07/20 - Allergies Allergies/Adverse Reactions: Allergies Allergy/AdvReac Type Severity Reaction Status Date / Time aspirin Allergy Severe Anaphylaxis Verified 11/05/20 13:21 hydromorphone HCl * Allergy Severe Hives Verified 11/05/20 13:21 [From Dilaudid] morphine Allergy Severe Hives Verified 11/05/20 13:21 nitrofurantoin Allergy Severe Respiratory Verified 11/05/20 13:21 macrocrystalline * [From Macrobid] acetaminophen [From Ofirmev] Allergy Hives Verified 11/05/20 13:21 amoxicillin Allergy Anaphylaxis Verified 11/05/20 13:21 doxycycline Allergy Hives Verified 11/05/20 13:21 famotidine [From Pepcid] Allergy Anaphylaxis Verified 11/05/20 13:21 fentanyl Allergy Unknown Verified 11/05/20 13:21 fluconazole Allergy Hives Verified 11/05/20 13:21 lidocaine Allergy Unknown Verified 11/05/20 13:21 meperidine HCl * Allergy Anaphylaxis Verified 11/05/20 13:21 [From Demerol] Penicillins Allergy Anaphylaxis Verified 11/05/20 13:21 prednisone Allergy Anaphylaxis Verified 11/05/20 13:21 tamsulosin HCl * Allergy Unknown Verified 11/05/20 13:21 [From Flomax] trimethoprim [From Bactrim] Allergy Hives Verified 11/05/20 13:21 wheat Allergy Hives Verified 11/05/20 13:21 hydrocodone [Hydrocodone] AdvReac Severe Emesis Verified 11/05/20 13:21 butorphanol AdvReac Intermediate Anxiety Verified 11/05/20 13:21 adhesive AdvReac Rash Verified 11/05/20 13:21 [place] And Derivatives AdvReac Nausea Verified 11/05/20 13:21 egg AdvReac Nausea Verified 11/05/20 13:21 fexofenadine AdvReac Edema Verified 11/05/20 13:21 milk AdvReac Nausea Verified 11/05/20 13:21 NSAIDS (Non-Steroidal AdvReac Cramps Verified 11/05/20 13:21 Anti-Inflamma - Social History Does the pt smoke?: No Smoking Status: Never smoker Does the pt drink ETOH?: No Does the pt have substance abuse?: No - Immunizations Immunizations are current?: Yes - POLST Patient has POLST: No POLST Status: Full Code PD ED PE EXPANDED - General General: Alert, In distress - Cardiac Cardiac: Regular Rate, Radial strong equal, Pedal strong equal. No: Murmur Present - Respiratory Respiratory: Clear to ausultation navjot - Abdomen Abdomen: Normal Bowel sounds. No: Tender to palpation - Derm Derm: Normal color, Warm and dry Results - Vitals Vitals: Vital Signs - 24 hr 11/07/20 11/07/20 14:53 15:57 Temperature 36.6 C Heart Rate 85 66 Respiratory 17 28 H Rate Blood Pressure 111/70 111/75 O2 Saturation 99 100 Oxygen O2 Source Room air - EKG (time done) 1458 Rate: Rate (enter#) (68) Rhythm: NSR [place]: Normal Intervals: Normal CO QRS: Normal Ischemia: Non specific changes Compare to prior EKG: Unchanged from prior EKG Computer interpretation: Agree with computer - Labs Labs: Laboratory Tests 11/07/20 11/07/20 11/07/20 15:24 15:24 15:24 WBC 9.0 RBC 4.42 Hgb 13.6 Hct 40.2 MCV 91.0 MCH 30.8 MCHC 33.8 RDW 12.9 Plt Count 296 MPV 11.6 H Neut # (Auto) 7.2 H Lymph # (Auto) 1.5 [place] # (Auto) 0.3 Eos # (Auto) 0.0 Baso # (Auto) 0.1 Absolute Nucleated RBC 0.00 Nucleated RBC % 0.0 D-Dimer Sodium 139 Potassium 3.6 Chloride 107 Carbon Dioxide 21 Anion Gap 11.0 BUN 14 Creatinine 0.6 Estimated GFR (MDRD) 114 Glucose 114 H Calcium 9.2 Total Bilirubin 0.6 AST 24 ALT 19 Alkaline Phosphatase 33 L Troponin I High Sens < 2.3 L Total Protein 7.5 Albumin 4.5 Globulin 3.0 Albumin/Globulin Ratio 1.5 Lipase 29 11/07/20 15:24 WBC RBC Hgb Hct MCV MCH MCHC RDW Plt Count MPV Neut # (Auto) Lymph # (Auto) [place] # (Auto) Eos # (Auto) Baso # (Auto) Absolute Nucleated RBC Nucleated RBC % D-Dimer 206.9 Sodium Potassium Chloride Carbon Dioxide Anion Gap BUN Creatinine Estimated GFR (MDRD) Glucose Calcium Total Bilirubin AST ALT Alkaline Phosphatase Troponin I High Sens Total Protein Albumin Globulin Albumin/Globulin Ratio Lipase - Rads (name of study) CXR Radiology: Final report received (no acute findings), EMP read indepedently PD MEDICAL DECISION MAKING - ED course Complexity details: reviewed results, re-evaluated patient, d/w patient ED course: 34-year-old female presents emergency department for evaluation of 3 days pleuritic chest pain. She reports it hurts to take a deep breath. No cough, no fevers no hemoptysis. By PERC criteria there is very low risk for PE. However given the initial findings of tachypnea a D-dimer was completed. Reassuringly it is not elevated. Chest x-ray shows no acute pneumonia. EKG is nonischemic. High-sensitivity troponin is negative. Patient was initially given some Ativan as well as Dilaudid here in the emergency department. Following this she had marked resolution of symptoms. She does admit there may be a component of some anxiety contributing to this ED visit. She is also very stressed with recent ED visit for an allergic reaction and is concerned that the steroids may be causing her to feel funny. Pt is requesting a refill of her epi pen which I have completed Departure - Departure Disposition: 01 Home, Self Care Clinical Impression: Pleuritic chest pain Condition: Stable Record reviewed to determine appropriate education?: Yes Prescriptions: EPINEPHrine [Epinephrine] 0.3 mg IJ ONCE PRN #1 syr PRN Reason: Anaphylaxis Comments: Isabel you are seen today in the emergency department for chest pain. As we discussed your EKG, chest x-ray and labs are all essentially normal. You are not having a heart attack, there is no pneumonia, pneumothorax and you do not have a blood clot in your lungs. I suspect that some component of your chest pain may be related to anxiety. It may also be referred pain from your polycystic kidney disease. Here in the emergency department you were giving some medication to help with anxiety and that seems to have helped. I would like you to discuss this ED visit with your primary care provider. You may benefit from consideration of taking a longer term antidepressant or anxiety medications. If at any point you have worsening symptoms, cannot catch her breath have uncontrolled cough or any fainting episodes please return immediately to the ER for second look.
--- NOTE | 2020-11-07 15:24 | XRAY Report ---
PROCEDURE: Chest 1 View X-Ray INDICATIONS: Chest Pain TECHNIQUE: One view of the chest was acquired. COMPARISON: None FINDINGS: Surgical changes and devices: None. Lungs and pleura: No pleural effusions or pneumothorax. Lungs are clear. Mediastinum: Mediastinal contours appear normal. Heart size is normal. Bones and chest wall: No suspicious bony lesions. Overlying soft tissues appear unremarkable. IMPRESSION: No acute cardiopulmonary process. Reviewed by: Norberto Crawley MD on 11/07/2020 3:22 PM PDT Approved by: Norberto Crawley MD on 11/07/2020 3:22 PM PDT Station ID: [id number]
[2020-11-07 15:29] LABS: BASOPHILS # (AUTO) 0.1 10^3/uL (0.0-0.1); BASOPHILS % (AUTO) 0.6 %; EOSINOPHILS % (AUTO) 0.1 %; HCT - HEMATOCRIT 40.2 % (37.0-47.0); HGB - HEMOGLOBIN 13.6 g/dL (12.0-16.0); LYMPHOCYTES # (AUTO) 1.5 10^3/uL (1.5-3.5); LYMPHOCYTES % (AUTO) 16.4 %; MEAN CORPUSCULAR HEMOGLOBIN 30.8 pg (27.0-31.0); MEAN CORPUSCULAR HGB CONC 33.8 g/dL (32.0-36.0); MEAN PLATELET VOLUME 11.6 fL (7.9-10.8); MONOCYTES # (AUTO) 0.3 10^3/uL (0.0-1.0); MONOCYTES % (AUTO) 2.9 %; NEUTROPHILS # (AUTO) 7.2 10^3/uL (1.5-6.6); NEUTROPHILS % (AUTO) 79.8 %; PLT - PLATELET COUNT 296 10^3/uL (130-450); RED BLOOD COUNT 4.42 10^6/uL (4.20-5.40); RED CELL DISTRIBUTION WIDTH 12.9 % (12.0-15.0)
[2020-11-07] MEDS ORDERED: HYDROmorphone 1 MG/ML CARPUJECT IVP STA (15:35)
[2020-11-07] MEDS ORDERED: diphenhydrAMINE INJ 50 MG/ML VIAL IVP STA (15:35)
[2020-11-07 15:44] LABS: ALBUMIN 4.5 g/dL (3.2-5.5); ALBUMIN/GLOBULIN RATIO 1.5 (1.0-2.2); BILIRUBIN,TOTAL 0.6 mg/dL (0.2-1.0); CALCIUM 9.2 mg/dL (8.5-10.3); CREATININE 0.6 mg/dL (0.4-1.0); POTASSIUM 3.6 mmol/L (3.5-5.0); TOTAL PROTEIN 7.5 g/dL (6.7-8.2)
[2020-11-07 17:07] VITALS: BP 119/67
== END 2020-11-07 17:21 | disposition home or self-care (01) ==
LOC: EDUNIT# → ED 14:49 → SUPCPDRO 14:49 → ED 17:21
DX: R07.1 Chest pain on breathing (principal)
CPT/HCPCS: 36415; 71045; 80053; 83690; 84484; 85025; 85379; 93005; 96374; 96375; 99283; 99284; J1170; J1200; J2060

== ENCOUNTER 2020-11-10 15:20 | Outpatient (CLI) | payer MEDICAID ==
--- NOTE | 2020-11-10 17:25 | Ultrasound Report ---
Reason: ENDOMETRIOSIS,ABD PAIN Procedure Date: 11/10/2020 Accession Number: [id number] / [id number] Procedure: US - Pelvic w/Transvaginal CPT Code: Final Report FULL RESULT: PROCEDURE: Pelvic w/Transvaginal INDICATIONS: ENDOMETRIOSIS,ABD PAIN TECHNIQUE: Real-time scanning was performed of the pelvic organs, with image documentation. Additional endovaginal scanning was necessary due to incomplete visualization of the adnexal and endometrial structures by transabdominal scanning. COMPARISON: Prior pelvic ultrasound dated 02/18/2017.. FINDINGS: No pathologic free abdominal or pelvic fluid. Uterus: Previous hysterectomy. Ovaries: Right ovary is not visualized and may be surgically absent. Left ovary is normal measuring 3.1 x 1.9 x 1.5 cm with volume estimated at 4.7 cc. Small amount of free fluid present. IMPRESSION: No acute abnormality identified. Reviewed by: MARK Balbuena on 11/10/2020 5:24 PM PDT Approved by: Diamond Mora MD on 11/10/2020 5:24 PM PDT Station ID: [id number]
== END 2020-11-10 15:21 | disposition home or self-care (01) ==
LOC: DI 15:20
PROVIDERS: ATTEND Obstetrics & Gynecology
DX: N80.9 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, unspecified (principal); R10.9 Unspecified abdominal pain

== ENCOUNTER 2020-11-10 15:21 | Outpatient (CLI) | payer MEDICAID | END 2020-11-10 15:22 | disposition home or self-care (01) | LOC: DI.N 15:21 | PROVIDERS: ATTEND Obstetrics & Gynecology | DX: M25.551 Pain in right hip (principal) ==

== ENCOUNTER 2021-01-09 13:38 | Outpatient (CLI) | payer MEDICAID, OTHER ==
[2021-01-09 14:05] LABS: ALBUMIN 4.7 g/dL (3.2-5.5); CALCIUM 9.5 mg/dL (8.5-10.3); CREATININE 0.6 mg/dL (0.4-1.0); PHOSPHORUS 3.1 mg/dL (2.5-4.6); POTASSIUM 3.8 mmol/L (3.5-5.0)
== END 2021-01-09 13:39 | disposition home or self-care (01) ==
LOC: LAB 13:38
PROVIDERS: ATTEND Internal Medicine Nephrology
DX: Q61.3 Polycystic kidney, unspecified (principal)
CPT/HCPCS: 36415; 80069

== ENCOUNTER 2021-01-17 21:44 | Emergency (ER) | payer OTHER | END 2021-01-17 22:13 | disposition left against medical advice (07) | LOC: ED 21:44 | DX: Z53.21 Procedure and treatment not carried out due to patient leaving prior to being seen by health care provider (principal) ==

== ENCOUNTER 2021-01-17 22:34 | Outpatient (CLI) | payer OTHER | END 2021-01-17 22:35 | disposition short-term general hospital (02) | LOC: EMS 22:34 | DX: R10.31 Right lower quadrant pain (principal); R11.0 Nausea | CPT/HCPCS: A0425; A0427 ==

== ENCOUNTER 2021-02-09 12:26 | Outpatient (CLI) | payer OTHER | END 2021-02-09 23:59 | disposition home or self-care (01) | LOC: LAB.N 12:26 | PROVIDERS: ATTEND Nurse Practitioner | DX: R09.89 Other specified symptoms and signs involving the circulatory and respiratory systems (principal); Z20.822 Contact with and (suspected) exposure to COVID-19 ==

== ENCOUNTER 2022-04-27 21:40 | Emergency (ER) | payer OTHER ==
[2022-04-27] MEDS ORDERED: ACETAMINOPHEN 500 MG TABLET PO STA (21:44)
[2022-04-27] MEDS ORDERED: ONDANSETRON ODT 4 MG TABLET TL STA (21:45)
--- NOTE | 2022-04-27 21:46 | ED Physician Documentation ---
PD HPI HEADACHE - Stated complaint Stated Complaint: HEADACHE - History obtained from History obtained from: Patient - History of Present Illness Timing - onset: How many hours ago (2-3), Today Timing - onset during: Rest Timing - duration: Hours (patient noted onset of headache and nausea, as did her daughter. They noted then a smell of exhaust from their outside generator coming through a window. CO monitor sounded as well. Fire dept called and noted high CO level.) Timing - details: Gradual onset, Still present Worst headache ever?: No: Worst headache ever? Location: Front, Left Quality: Throbbing, Aching Associated symptoms: Nausea. No: Fever, Stiff neck Improved by: Other (it is easing slowly since out of the CO exposure.) Worsened by: No: Light, Noise Contributing factors: Possible carbon monoxide. No: Recent illness Similar symptoms before: Has not had sx before Recently seen: Not recently seen Review of Systems Constitutional: denies: Fever Nose: denies: Rhinorrhea / runny nose, Congestion Throat: denies: Sore throat Respiratory: denies: Cough GI: reports: Nausea. 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 : Other HEENT: Chronic sinusitis Psych: Depression Musculoskeletal: None Derm: None - Past Surgical History Past Surgical History: Yes General: Cholecystectomy, Appendectomy, Gastric surgery Ortho: Other /MANUFACTURING SPECIALIST: section, Tubal ligation, Hysterectomy, Other Neuro: Craniotomy HEENT: Tonsil/Adenoidectomy - Present Medications Home Medications: Ambulatory Orders Medication Instructions Recorded Confirmed Omeprazole 20 mg PO BID 09/30/18 11/07/20 Sucralfate 1 gm PO AC 30 Days #90 tablet 09/19/19 11/07/20 Acetaminophen [Tylenol Extra 1,000 mg PO Q6HR PRN MDD 4000mg 02/16/20 11/07/20 Strength] Albuterol Sulfate [Proair Hfa 1 - 2 puffs INH Q4H PRN 02/16/20 11/07/20 Inhaler] diphenhydrAMINE [Benadryl] 25 - 50 mg PO PRN PRN 02/16/20 11/07/20 Ondansetron Odt [Zofran] 4 mg TL Q6H PRN #10 tablet 06/19/20 11/07/20 EPINEPHrine [Epinephrine] 0.3 mg IJ ONCE PRN #2 syr 11/05/20 11/07/20 methylPREDNISolone [Medrol] 8 mg PO DAILY PRN #7 tablet 11/05/20 11/07/20 EPINEPHrine [Epinephrine] 0.3 mg IJ ONCE PRN #1 syr 11/07/20 - Allergies Allergies/Adverse Reactions: Allergies Allergy/AdvReac Type Severity Reaction Status Date / Time aspirin Allergy Severe Anaphylaxis Verified 11/05/20 13:21 hydromorphone HCl * Allergy Severe Hives Verified 11/05/20 13:21 [From Dilaudid] morphine Allergy Severe Hives Verified 11/05/20 13:21 nitrofurantoin Allergy Severe Respiratory Verified 11/05/20 13:21 macrocrystalline * [From Macrobid] acetaminophen [From Ofirmev] Allergy Hives Verified 11/05/20 13:21 amoxicillin Allergy Anaphylaxis Verified 11/05/20 13:21 doxycycline Allergy Hives Verified 11/05/20 13:21 famotidine [From Pepcid] Allergy Anaphylaxis Verified 11/05/20 13:21 fentanyl Allergy Unknown Verified 11/05/20 13:21 fluconazole Allergy Hives Verified 11/05/20 13:21 lidocaine Allergy Unknown Verified 11/05/20 13:21 meperidine HCl * Allergy Anaphylaxis Verified 11/05/20 13:21 [From Demerol] Penicillins Allergy Anaphylaxis Verified 11/05/20 13:21 prednisone Allergy Anaphylaxis Verified 11/05/20 13:21 tamsulosin HCl * Allergy Unknown Verified 11/05/20 13:21 [From Flomax] trimethoprim [From Bactrim] Allergy Hives Verified 11/05/20 13:21 wheat Allergy Hives Verified 11/05/20 13:21 hydrocodone [Hydrocodone] AdvReac Severe Emesis Verified 11/05/20 13:21 butorphanol AdvReac Intermediate Anxiety Verified 11/05/20 13:21 adhesive AdvReac Rash Verified 11/05/20 13:21 [place] And Derivatives AdvReac Nausea Verified 11/05/20 13:21 egg AdvReac Nausea Verified 11/05/20 13:21 fexofenadine AdvReac Edema Verified 11/05/20 13:21 milk AdvReac Nausea Verified 11/05/20 13:21 NSAIDS (Non-Steroidal AdvReac Cramps Verified 11/05/20 13:21 Anti-Inflamma - Social History Does the pt smoke?: No Smoking Status: Never smoker Does the pt drink ETOH?: No Does the pt have substance abuse?: No - Immunizations Immunizations are current?: Yes - POLST Patient has POLST: No POLST Status: Full Code PD ED PE NORMAL - Vitals Vital signs reviewed: Yes - General General: Alert and oriented X 3, No acute distress, Well developed/nourished - HEENT HEENT: Pharynx benign - Neck Neck: Supple, no meningeal sign, No adenopathy - Cardiac Cardiac: RRR, No murmur - Respiratory Respiratory: Clear bilaterally - Abdomen Abdomen: Soft, Non tender - Derm Derm: Normal color, Warm and dry, No rash - Neuro Neuro: Alert and oriented X 3, records management associate 2-12 intact, No motor deficit, No sensory deficit, Normal speech Eye Opening: Spontaneous Motor: Obeys Commands Verbal: Oriented GCS Score: 15 Results - Vitals Vitals: Oxygen O2 Source Room air - Labs Labs: Laboratory Tests 04/27/22 22:08 VBG Total Hgb 15.1 VBG Oxyhemoglobin 50 L VBG Carboxyhemoglobin 4.0 H VBG Methemoglobin 0.3 PD MEDICAL DECISION MAKING - ED course Complexity details: reviewed results (CO is only 4. She is feeling better with just TYlenol and Zofran here. Given oxygen NC while waiting labs. ), considered differential, d/w patient Departure - Departure Disposition: 01 Home, Self Care Clinical Impression: Accidental poisoning by exhaust gas from gas engine Condition: Stable Record reviewed to determine appropriate education?: Yes Instructions: ED CO Poisoning Comments: Your symptoms are consistent with mild carbon monoxide and exhaust fumes. Your carbon monoxide level is low at only 4 which is good. I would anticipate your symptoms improving as they have and staying improved as long as you are not reexposed. There may be some residual headache intermittently for the following day. Tylenol very 4 hours if needed. Return if worsening symptoms. Discharge Date/Time: 04/27/22 22:19
--- OUTSIDE RECORDS SUMMARY | 2022-04-27 22:10 | EXTERNAL MEDICAL SUMMARY RPT | Continuity of Care Document ---
:1985 Author Organization [facility] Address [address] [place] [address] Phone Care Team Providers Name Role Phone Austyn Perry Unavailable Unavailable Allergies No information. Encounters No information. Functional Status No information. Immunizations No information. Medications No information. Problems No information. Procedures No information. Results/Labs test date author facility value unit interpret ation Result panel 1 (unknown) (no (unknown) (unknown) (no value) (units (unk nown) date) unknown) (unknown) (no (unknown) (unknown) Agitated (units (unkno wn) date) unknown) (unknown) (no (unknown) (unknown) [place] [address] (unit s (unknown) date) unknown) (unknown) (no (unknown) (unknown) Anaphylaxis (units (un known) date) unknown) (unknown) (no (unknown) (unknown) Draft (units (unkno wn) date) unknown) (unknown) (no (unknown) (unknown) Family [facility] (units (unknown) date) Office Visit unknown) (unknown) (no (unknown) (unknown) [facility]units ([facility] date[facility] unknown) (unknown) (no (unknown) (unknown) Hives (units (unkno wn) date) unknown) (unknown) (no (unknown) (unknown) Vomiting (units (unkno wn) date) unknown) (unknown) (no (unknown) (unknown) (no value) (units (unk nown) date) unknown) (unknown) (no (unknown) (unknown) [id number] (units (unkno wn) date) unknown) (unknown) (no (unknown) (unknown) 07/26/21 (units (unkno wn) date) unknown) (unknown) (no (unknown) (unknown) 12:05) (units (unkno wn) date) unknown) (unknown) (no (unknown) (unknown) 36-year-old woman (units (unknown) date) with history of unknown) PCOS, endometrial cancer?, partial bowel (unknown) (no (unknown) (unknown) Age/Sex: 36 / F (units (unknown) date) Date of Service: unknown) (unknown) (no (unknown) (unknown) Allergies (units (unkn own) date) unknown) (unknown) (no (unknown) (unknown) Anxiety (units (unkno wn) date) unknown) (unknown) (no (unknown) (unknown) Attending Dr: Austyn (unit s (unknown) date) [facility] unknown) (unknown) (no (unknown) (unknown) Chief Complaint (units (unknown) date) unknown) (unknown) (no (unknown) (unknown) Chief Complaint: (units (unknown) date) Establish care unknown) (unknown) (no (unknown) (unknown) Conjunctivae: (units ( unknown) date) conjunctivae normal unknown) (unknown) (no (unknown) (unknown) : 1985 (units (unknown) date) Acct:[id number] unknown) (unknown) (no (unknown) (unknown) Dept at (units (unkno wn) date) . unknown) (unknown) (no (unknown) (unknown) Details: (units (unkno wn) date) unknown) (unknown) (no (unknown) (unknown) Documented By: (units (unknown) date) Austyn Perry D.O. unknown) 02/12/22 0725 (unknown) (no (unknown) (unknown) Exam (units (unkno wn) date) unknown) (unknown) (no (unknown) (unknown) Exam Narrative (units (unknown) date) unknown) (unknown) (no (unknown) (unknown) Exam Narrative: (units (unknown) date) unknown) (unknown) (no (unknown) (unknown) Eyelids: eyelids (units (unknown) date) normal unknown) (unknown) (no (unknown) (unknown) Eyes (units (unkno wn) date) unknown) (unknown) (no (unknown) (unknown) General: appearance (unit s (unknown) date) normal, both eyes unknown) and all related structures (unknown) (no (unknown) (unknown) General: (units (unkno wn) date) cooperative, healthy unknown) appearing and comfortable (unknown) (no (unknown) (unknown) HENMT (units (unkno wn) date) unknown) (unknown) (no (unknown) (unknown) HPI (units (unkno wn) date) unknown) (unknown) (no (unknown) (unknown) Head: normal to (units (unknown) date) inspection unknown) (unknown) (no (unknown) (unknown) Health maintenance (units (unknown) date) unknown) (unknown) (no (unknown) (unknown) History of peptic (units (unknown) date) ulcer disease unknown) (unknown) (no (unknown) (unknown) Intake (units (unkno wn) date) unknown) (unknown) (no (unknown) (unknown) Loc: [facility] (units (unkno wn) date) unknown) (unknown) (no (unknown) (unknown) Medical History (units (unknown) date) (Updated 09/17/21 @ unknown) 00:00 by ) (unknown) (no (unknown) (unknown) Neck: normal visual (unit s (unknown) date) inspection unknown) (unknown) (no (unknown) (unknown) Neuro: alert and (units (unknown) date) oriented x3, normal unknown) cognition, speech normal, normal gait (unknown) (no (unknown) (unknown) Nose: external nose (unit s (unknown) date) normal unknown) (unknown) (no (unknown) (unknown) Orientation: alert (units (unknown) date) and oriented x3 unknown) (unknown) (no (unknown) (unknown) PFSH (units (unkno wn) date) unknown) (unknown) (no (unknown) (unknown) Patient: (units (unkno wn) date) Ni Rosales A unknown) MR#: [id number] (unknown) (no (unknown) (unknown) Penicillins Allergy (unit s (unknown) date) (Severe, Verified unknown) 03/07/21 11:59) (unknown) (no (unknown) (unknown) Polycystic kidney (units (unknown) date) disease unknown) (unknown) (no (unknown) (unknown) Psych: grossly (units (unknown) date) normal and well unknown) kempt, mental status grossly normal, speech and (unknown) (no (unknown) (unknown) Reason For Visit (units (unknown) date) unknown) (unknown) (no (unknown) (unknown) Resp: normal (units (u nknown) date) respiratory effort unknown) and able to speak in complete sentences (unknown) (no (unknown) (unknown) Sclera: sclerae (units (unknown) date) normal unknown) (unknown) (no (unknown) (unknown) Signed By: (units (unk nown) date) unknown) (unknown) (no (unknown) (unknown) Skin: no rashes or (units (unknown) date) lesions noted unknown) (unknown) (no (unknown) (unknown) Smoking Status: (units (unknown) date) Never smoker unknown) (unknown) (no (unknown) (unknown) Social History (units (unknown) date) unknown) (unknown) (no (unknown) (unknown) Status post (units (un known) date) appendectomy unknown) (unknown) (no (unknown) (unknown) Status post (units (un known) date) cholecystectomy unknown) (unknown) (no (unknown) (unknown) Surgical History (units (unknown) date) (Reviewed 09/02/21 @ unknown) 13:24 by Jose Rafael Oleary MD) (unknown) (no (unknown) (unknown) The patient denies (units (unknown) date) fever, weight loss, unknown) headache, loss of sense of smell, cough, (unknown) (no (unknown) (unknown) This note may have (units (unknown) date) been all or unknown) partially generated using voice recognition (unknown) (no (unknown) (unknown) Tobacco + Substance (unit s (unknown) date) Use unknown) (unknown) (no (unknown) (unknown) Tobacco Status (units (unknown) date) unknown) (unknown) (no (unknown) (unknown) 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 (unknown) (no (unknown) (unknown) fentanyl Allergy (units (unknown) date) (Severe, Verified unknown) 03/07/21 12:05) (unknown) (no (unknown) (unknown) fluticasone [From (units (unknown) date) Flonase] Adverse unknown) Reaction (Intermediate, Verified 03/07/21 (unknown) (no (unknown) (unknown) have occurred. If (units (unknown) date) there are any unknown) questions, please contact the Medical Records (unknown) (no (unknown) (unknown) household members: (units (unknown) date) spouse and children unknown) (unknown) (no (unknown) (unknown) hydrocodone Adverse (unit s (unknown) date) Reaction (Severe, unknown) Verified 03/07/21 12:05) (unknown) (no (unknown) (unknown) may occur. (units (unk nown) date) Occasional unknown) wrong-word or 'sound-alike' substitutions may have (unknown) (no (unknown) (unknown) methylprednisolone (units (unknown) date) Allergy (Severe, unknown) Verified 03/07/21 12:05) (unknown) (no (unknown) (unknown) morphine Allergy (units (unknown) date) (Severe, Verified unknown) 03/07/21 12:05) (unknown) (no (unknown) (unknown) movement normal, (units (unknown) date) congruent mood unknown) (unknown) (no (unknown) (unknown) obstruction, and (units (unknown) date) anxiety presents to unknown) establish care with concern today for (unknown) (no (unknown) (unknown) occurred due to the (unit s (unknown) date) inherent limitations unknown) of voice recognition software. Please (unknown) (no (unknown) (unknown) read the note (units ( unknown) date) carefully and unknown) recognize, using context, where these substitutions (unknown) (no (unknown) (unknown) shortness of (units (u nknown) date) breath, chest pain, unknown) abdominal pain, nausea, vomiting, diarrhea, (unknown) (no (unknown) (unknown) software. Although (units (unknown) date) every effort is made unknown) to edit content, auditor appraiser errors Result panel 2 (unknown) (no (unknown) (unknown) (no value) (units (unk nown) date) unknown) (unknown) (no (unknown) (unknown) Agitated (units (unkno wn) date) unknown) (unknown) (no (unknown) (unknown) [place] [id number] (unit s (unknown) date) unknown) (unknown) (no (unknown) (unknown) Anaphylaxis (units (un known) date) unknown) (unknown) (no (unknown) (unknown) Draft (units (unkno wn) date) unknown) (unknown) (no (unknown) (unknown) Family Practice (units (unknown) date) Office Visit unknown) (unknown) (no (unknown) (unknown) [facility] ([facility] date[facility] unknown) (unknown) (no (unknown) (unknown) Hives (units (unkno wn) date) unknown) (unknown) (no (unknown) (unknown) Vomiting (units (unkno wn) date) unknown) (unknown) (no (unknown) (unknown) (no value) (units (unk nown) date) unknown) (unknown) (no (unknown) (unknown) 03/07/21] (units (unkn own) date) unknown) (unknown) (no (unknown) (unknown) #14 tabs 05/09/21 (units (unknown) date) [Rx Confirmed unknown) 05/09/21] (unknown) (no (unknown) (unknown) [id number] (units (unkno wn) date) unknown) (unknown) (no (unknown) (unknown) 02/12/22 (units (unkno wn) date) unknown) (unknown) (no (unknown) (unknown) 03/07/21] (units (unkn own) date) unknown) (unknown) (no (unknown) (unknown) 12:05) (units (unkno wn) date) unknown) (unknown) (no (unknown) (unknown) 36-year-old woman (units (unknown) date) with history of unknown) PCOS, endometrial cancer?, partial bowel (unknown) (no (unknown) (unknown) Age/Sex: 36 / F (units (unknown) date) Date of Service: unknown) (unknown) (no (unknown) (unknown) Allergies (units (unkn own) date) unknown) (unknown) (no (unknown) (unknown) Anxiety (units (unkno wn) date) unknown) (unknown) (no (unknown) (unknown) Attending Dr: Austyn (unit s (unknown) date) [facility] Bar[facility] unknown) (unknown) (no (unknown) (unknown) Chief Complaint (units (unknown) date) unknown) (unknown) (no (unknown) (unknown) Chief Complaint: (units (unknown) date) Establish care unknown) (unknown) (no (unknown) (unknown) Conjunctivae: (units ( unknown) date) conjunctivae normal unknown) (unknown) (no (unknown) (unknown) : 1985 (units (unknown) date) Acct:[id number] unknown) (unknown) (no (unknown) (unknown) Dept at (units (unkno wn) date) . unknown) (unknown) (no (unknown) (unknown) Details: (units (unkno wn) date) unknown) (unknown) (no (unknown) (unknown) Documented By: (units (unknown) date) Austyn Perry D.O. unknown) 02/12/22 0725 (unknown) (no (unknown) (unknown) Exam (units (unkno wn) date) unknown) (unknown) (no (unknown) (unknown) Exam Narrative (units (unknown) date) unknown) (unknown) (no (unknown) (unknown) Exam Narrative: (units (unknown) date) unknown) (unknown) (no (unknown) (unknown) Eyelids: eyelids (units (unknown) date) normal unknown) (unknown) (no (unknown) (unknown) Eyes (units (unkno wn) date) unknown) (unknown) (no (unknown) (unknown) General: appearance (unit s (unknown) date) normal, both eyes unknown) and all related structures (unknown) (no (unknown) (unknown) General: (units (unkno wn) date) cooperative, healthy unknown) appearing and comfortable (unknown) (no (unknown) (unknown) HENMT (units (unkno wn) date) unknown) (unknown) (no (unknown) (unknown) HPI (units (unkno wn) date) unknown) (unknown) (no (unknown) (unknown) Head: normal to (units (unknown) date) inspection unknown) (unknown) (no (unknown) (unknown) Health maintenance (units (unknown) date) unknown) (unknown) (no (unknown) (unknown) History of peptic (units (unknown) date) ulcer disease unknown) (unknown) (no (unknown) (unknown) Intake (units (unkno wn) date) unknown) (unknown) (no (unknown) (unknown) Intake performed (units (unknown) date) by: Leyda Ruff unknown) (unknown) (no (unknown) (unknown) Intake- Clincial (units (unknown) date) Staff unknown) (unknown) (no (unknown) (unknown) Loc: [facility] (units (unkno wn) date) unknown) (unknown) (no (unknown) (unknown) Medical History (units (unknown) date) (Updated 09/17/21 @ unknown) 00:00 by ) (unknown) (no (unknown) (unknown) Medications (units (un known) date) unknown) (unknown) (no (unknown) (unknown) Neck: normal visual (unit s (unknown) date) inspection unknown) (unknown) (no (unknown) (unknown) Neuro: alert and (units (unknown) date) oriented x3, normal unknown) cognition, speech normal, normal gait (unknown) (no (unknown) (unknown) Nose: external nose (unit s (unknown) date) normal unknown) (unknown) (no (unknown) (unknown) Orientation: alert (units (unknown) date) and oriented x3 unknown) (unknown) (no (unknown) (unknown) PFSH (units (unkno wn) date) unknown) (unknown) (no (unknown) (unknown) Pain (Scale Score (units (unknown) date) 4-6) 01/18/21 unknown) [History Confirmed 03/07/21] (unknown) (no (unknown) (unknown) Patient: (units (unkno wn) date) Ni Rosales Lori unknown) MR#: [id number] (unknown) (no (unknown) (unknown) Penicillins Allergy (unit s (unknown) date) (Severe, Verified unknown) 03/07/21 11:59) (unknown) (no (unknown) (unknown) Polycystic kidney (units (unknown) date) disease unknown) (unknown) (no (unknown) (unknown) Psych: grossly (units (unknown) date) normal and well unknown) kempt, mental status grossly normal, speech and (unknown) (no (unknown) (unknown) Reaction 01/18/21 (units (unknown) date) [History Confirmed unknown) 03/07/21] (unknown) (no (unknown) (unknown) Reason For Visit (units (unknown) date) unknown) (unknown) (no (unknown) (unknown) Resp: normal (units (u nknown) date) respiratory effort unknown) and able to speak in complete sentences (unknown) (no (unknown) (unknown) Sclera: sclerae (units (unknown) date) normal unknown) (unknown) (no (unknown) (unknown) Shortness Of Breath (unit s (unknown) date) Or Wheezing 01/18/21 unknown) [History Confirmed 03/07/21] (unknown) (no (unknown) (unknown) Signed By: (units (unk nown) date) unknown) (unknown) (no (unknown) (unknown) Skin: no rashes or (units (unknown) date) lesions noted unknown) (unknown) (no (unknown) (unknown) Smoking Status: (units (unknown) date) Never smoker unknown) (unknown) (no (unknown) (unknown) Social History (units (unknown) date) unknown) (unknown) (no (unknown) (unknown) Status post (units (un known) date) appendectomy unknown) (unknown) (no (unknown) (unknown) Status post (units (un known) date) cholecystectomy unknown) (unknown) (no (unknown) (unknown) Surgical History (units (unknown) date) (Reviewed 09/02/21 @ unknown) 13:24 by Jose Rafael Oleary MD) (unknown) (no (unknown) (unknown) The patient denies (units (unknown) date) fever, weight loss, unknown) headache, loss of sense of smell, cough, (unknown) (no (unknown) (unknown) This note may have (units (unknown) date) been all or unknown) partially generated using voice recognition (unknown) (no (unknown) (unknown) Tobacco + Substance (unit s (unknown) date) Use unknown) (unknown) (no (unknown) (unknown) Tobacco Status (units (unknown) date) unknown) (unknown) (no (unknown) (unknown) 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: (units (unknown) date) Kidney disease unknown) (unknown) (no (unknown) (unknown) acetaminophen 500 (units (unknown) date) mg tablet unknown) (Acetaminophen Extra Strength) 1,000 mg PO Q6H PRN (unknown) (no (unknown) (unknown) albuterol sulfate (units (unknown) date) 90 mcg/actuation unknown) aerosol inhaler 2 puff inhalation Q4HR PRN (unknown) (no (unknown) (unknown) alcohol intake: (units (unknown) date) never unknown) (unknown) (no (unknown) (unknown) aspirin Allergy (units (unknown) date) (Severe, Verified unknown) 03/07/21 12:01) (unknown) (no (unknown) (unknown) clavulanic acid (units (unknown) date) Allergy (Severe, unknown) Verified 03/07/21 12:00) (unknown) (no (unknown) (unknown) constipation, (units ( unknown) date) numbness and unknown) tingling. (unknown) (no (unknown) (unknown) epinephrine 0.3 (units (unknown) date) mg/0.3 mL injection, unknown) auto-injector 0.3 mg IM PRN PRN Allergic (unknown) (no (unknown) (unknown) fentanyl Allergy (units (unknown) date) (Severe, Verified unknown) 03/07/21 12:05) (unknown) (no (unknown) (unknown) fluticasone [From (units (unknown) date) Flonase] Adverse unknown) Reaction (Intermediate, Verified 03/07/21 (unknown) (no (unknown) (unknown) have occurred. If (units (unknown) date) there are any unknown) questions, please contact the Medical Records (unknown) (no (unknown) (unknown) household members: (units (unknown) date) spouse and children unknown) (unknown) (no (unknown) (unknown) hydrocodone Adverse (unit s (unknown) date) Reaction (Severe, unknown) Verified 03/07/21 12:05) (unknown) (no (unknown) (unknown) loratadine 10 mg (units (unknown) date) tablet (Claritin) 10 unknown) mg PO DAILY 01/18/21 [History Confirmed (unknown) (no (unknown) (unknown) may occur. (units (unk nown) date) Occasional unknown) wrong-word or 'sound-alike' substitutions may have (unknown) (no (unknown) (unknown) methylprednisolone (units (unknown) date) Allergy (Severe, unknown) Verified 03/07/21 12:05) (unknown) (no (unknown) (unknown) morphine Allergy (units (unknown) date) (Severe, Verified unknown) 03/07/21 12:05) (unknown) (no (unknown) (unknown) movement normal, (units (unknown) date) congruent mood unknown) (unknown) (no (unknown) (unknown) obstruction, and (units (unknown) date) anxiety presents to unknown) establish care with concern today for (unknown) (no (unknown) (unknown) occurred due to the (unit s (unknown) date) inherent limitations unknown) of voice recognition software. Please (unknown) (no (unknown) (unknown) omeprazole 20 mg (units (unknown) date) tablet,delayed unknown) release 20 mg PO BID 03/07/21 [History Confirmed (unknown) (no (unknown) (unknown) ondansetron 4 mg (units (unknown) date) disintegrating unknown) tablet 4 mg PO Q8-12H PRN nausea and vomiting (unknown) (no (unknown) (unknown) read the note (units ( unknown) date) carefully and unknown) recognize, using context, where these substitutions (unknown) (no (unknown) (unknown) shortness of (units (u nknown) date) breath, chest pain, unknown) abdominal pain, nausea, vomiting, diarrhea, (unknown) (no (unknown) (unknown) software. Although (units (unknown) date) every effort is made unknown) to edit content, auditor appraiser errors Result panel 3 (unknown) (no (unknown) (unknown) (no value) (units (unk nown) date) unknown) (unknown) (no (unknown) (unknown) Agitated (units (unkno wn) date) unknown) (unknown) (no (unknown) (unknown) [place] [id number] (unit s (unknown) date) unknown) (unknown) (no (unknown) (unknown) Anaphylaxis (units (un known) date) unknown) (unknown) (no (unknown) (unknown) Draft (units (unkno wn) date) unknown) (unknown) (no (unknown) (unknown) Family Practice (units (unknown) date) Office Visit unknown) (unknown) (no (unknown) (unknown) [facility]units (unknown[facility] date[facility] unknown) (unknown) (no (unknown) (unknown) Hives (units (unkno wn) date) unknown) (unknown) (no (unknown) (unknown) Vomiting (units (unkno wn) date) unknown) (unknown) (no (unknown) (unknown) (no value) (units (unk nown) date) unknown) (unknown) (no (unknown) (unknown) 03/07/21] (units (unkn own) date) unknown) (unknown) (no (unknown) (unknown) #14 tabs 05/09/21 (units (unknown) date) [Rx Confirmed unknown) 05/09/21] (unknown) (no (unknown) (unknown) [id number] (units (unkno wn) date) unknown) (unknown) (no (unknown) (unknown) 02/12/22 (units (unkno wn) date) unknown) (unknown) (no (unknown) (unknown) 03/07/21] (units (unkn own) date) unknown) (unknown) (no (unknown) (unknown) 12:05) (units (unkno wn) date) unknown) (unknown) (no (unknown) (unknown) 36-year-old woman (units (unknown) date) with history of unknown) PCOS, endometrial cancer?, partial bowel (unknown) (no (unknown) (unknown) Age/Sex: 36 / F (units (unknown) date) Date of Service: unknown) (unknown) (no (unknown) (unknown) Allergies (units (unkn own) date) unknown) (unknown) (no (unknown) (unknown) Anxiety (units (unkno wn) date) unknown) (unknown) (no (unknown) (unknown) Attending Dr: Austyn (unit s (unknown) date) [place] D.OS[facility] unknown) (unknown) (no (unknown) (unknown) Chief Complaint (units (unknown) date) unknown) (unknown) (no (unknown) (unknown) Chief Complaint: (units (unknown) date) Establish care unknown) (unknown) (no (unknown) (unknown) Conjunctivae: (units ( unknown) date) conjunctivae normal unknown) (unknown) (no (unknown) (unknown) : 1985 (units (unknown) date) Acct:[id number] unknown) (unknown) (no (unknown) (unknown) Dept at (units (unkno wn) date) . unknown) (unknown) (no (unknown) (unknown) Details: (units (unkno wn) date) unknown) (unknown) (no (unknown) (unknown) Documented By: (units (unknown) date) Austyn Perry D.O. unknown) 02/12/22 0725 (unknown) (no (unknown) (unknown) Exam (units (unkno wn) date) unknown) (unknown) (no (unknown) (unknown) Exam Narrative (units (unknown) date) unknown) (unknown) (no (unknown) (unknown) Exam Narrative: (units (unknown) date) unknown) (unknown) (no (unknown) (unknown) Eyelids: eyelids (units (unknown) date) normal unknown) (unknown) (no (unknown) (unknown) Eyes (units (unkno wn) date) unknown) (unknown) (no (unknown) (unknown) General: appearance (unit s (unknown) date) normal, both eyes unknown) and all related structures (unknown) (no (unknown) (unknown) General: (units (unkno wn) date) cooperative, healthy unknown) appearing and comfortable (unknown) (no (unknown) (unknown) HENMT (units (unkno wn) date) unknown) (unknown) (no (unknown) (unknown) HPI (units (unkno wn) date) unknown) (unknown) (no (unknown) (unknown) Head: normal to (units (unknown) date) inspection unknown) (unknown) (no (unknown) (unknown) Health maintenance (units (unknown) date) unknown) (unknown) (no (unknown) (unknown) History of peptic (units (unknown) date) ulcer disease unknown) (unknown) (no (unknown) (unknown) Intake (units (unkno wn) date) unknown) (unknown) (no (unknown) (unknown) Intake Note: (units (u nknown) date) unknown) (unknown) (no (unknown) (unknown) Intake performed (units (unknown) date) by: Leyda Ruff unknown) (unknown) (no (unknown) (unknown) Intake- Clincial (units (unknown) date) Staff unknown) (unknown) (no (unknown) (unknown) Loc: [facility] (units (unkno wn) date) unknown) (unknown) (no (unknown) (unknown) Medical History (units (unknown) date) (Updated 09/17/21 @ unknown) 00:00 by ) (unknown) (no (unknown) (unknown) Medications (units (un known) date) unknown) (unknown) (no (unknown) (unknown) Neck: normal visual (unit s (unknown) date) inspection unknown) (unknown) (no (unknown) (unknown) Neuro: alert and (units (unknown) date) oriented x3, normal unknown) cognition, speech normal, normal gait (unknown) (no (unknown) (unknown) Nose: external nose (unit s (unknown) date) normal unknown) (unknown) (no (unknown) (unknown) Orientation: alert (units (unknown) date) and oriented x3 unknown) (unknown) (no (unknown) (unknown) PFSH (units (unkno wn) date) unknown) (unknown) (no (unknown) (unknown) Pain (Scale Score (units (unknown) date) 4-6) 01/18/21 unknown) [History Confirmed 03/07/21] (unknown) (no (unknown) (unknown) Patient presents to (unit s (unknown) date) establish care, and unknown) discuss Patient's polycystic kidney (unknown) (no (unknown) (unknown) Patient was (units (un known) date) adapted, but unknown) recently nothing that she has done in the past is (unknown) (no (unknown) (unknown) Patient: (units (unkno wn) date) KmColleen barthNi A unknown) MR#: [id number] (unknown) (no (unknown) (unknown) Penicillins Allergy (unit s (unknown) date) (Severe, Verified unknown) 03/07/21 11:59) (unknown) (no (unknown) (unknown) Polycystic kidney (units (unknown) date) disease unknown) (unknown) (no (unknown) (unknown) Psych: grossly (units (unknown) date) normal and well unknown) kempt, mental status grossly normal, speech and (unknown) (no (unknown) (unknown) Reaction 01/18/21 (units (unknown) date) [History Confirmed unknown) 03/07/21] (unknown) (no (unknown) (unknown) Reason For Visit (units (unknown) date) unknown) (unknown) (no (unknown) (unknown) Resp: normal (units (u nknown) date) respiratory effort unknown) and able to speak in complete sentences (unknown) (no (unknown) (unknown) Sclera: sclerae (units (unknown) date) normal unknown) (unknown) (no (unknown) (unknown) Shortness Of Breath (unit s (unknown) date) Or Wheezing 01/18/21 unknown) [History Confirmed 03/07/21] (unknown) (no (unknown) (unknown) Signed By: (units (unk nown) date) unknown) (unknown) (no (unknown) (unknown) Skin: no rashes or (units (unknown) date) lesions noted unknown) (unknown) (no (unknown) (unknown) Smoking Status: (units (unknown) date) Never smoker unknown) (unknown) (no (unknown) (unknown) Social History (units (unknown) date) unknown) (unknown) (no (unknown) (unknown) Status post (units (un known) date) appendectomy unknown) (unknown) (no (unknown) (unknown) Status post (units (un known) date) cholecystectomy unknown) (unknown) (no (unknown) (unknown) Surgical History (units (unknown) date) (Reviewed 09/02/21 @ unknown) 13:24 by Jose Rafael Oleary MD) (unknown) (no (unknown) (unknown) The patient denies (units (unknown) date) fever, weight loss, unknown) headache, loss of sense of smell, cough, (unknown) (no (unknown) (unknown) This note may have (units (unknown) date) been all or unknown) partially generated using voice recognition (unknown) (no (unknown) (unknown) Tobacco + Substance (unit s (unknown) date) Use unknown) (unknown) (no (unknown) (unknown) Tobacco Status (units (unknown) date) unknown) (unknown) (no (unknown) (unknown) 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: (units (unknown) date) Kidney disease unknown) (unknown) (no (unknown) (unknown) acetaminophen 500 (units (unknown) date) mg tablet unknown) (Acetaminophen Extra Strength) 1,000 mg PO Q6H PRN (unknown) (no (unknown) (unknown) albuterol sulfate (units (unknown) date) 90 mcg/actuation unknown) aerosol inhaler 2 puff inhalation Q4HR PRN (unknown) (no (unknown) (unknown) alcohol intake: (units (unknown) date) never unknown) (unknown) (no (unknown) (unknown) aspirin Allergy (units (unknown) date) (Severe, Verified unknown) 03/07/21 12:01) (unknown) (no (unknown) (unknown) clavulanic acid (units (unknown) date) Allergy (Severe, unknown) Verified 03/07/21 12:00) (unknown) (no (unknown) (unknown) constipation, (units ( unknown) date) numbness and unknown) tingling. (unknown) (no (unknown) (unknown) disease. Patient (units (unknown) date) also have concerns unknown) with food getting stuck in her throat, (unknown) (no (unknown) (unknown) epinephrine 0.3 (units (unknown) date) mg/0.3 mL injection, unknown) auto-injector 0.3 mg IM PRN PRN Allergic (unknown) (no (unknown) (unknown) fentanyl Allergy (units (unknown) date) (Severe, Verified unknown) 03/07/21 12:05) (unknown) (no (unknown) (unknown) fluticasone [From (units (unknown) date) Flonase] Adverse unknown) Reaction (Intermediate, Verified 03/07/21 (unknown) (no (unknown) (unknown) have occurred. If (units (unknown) date) there are any unknown) questions, please contact the Medical Records (unknown) (no (unknown) (unknown) household members: (units (unknown) date) spouse and children unknown) (unknown) (no (unknown) (unknown) hydrocodone Adverse (unit s (unknown) date) Reaction (Severe, unknown) Verified 03/07/21 12:05) (unknown) (no (unknown) (unknown) loratadine 10 mg (units (unknown) date) tablet (Claritin) 10 unknown) mg PO DAILY 01/18/21 [History Confirmed (unknown) (no (unknown) (unknown) may occur. (units (unk nown) date) Occasional unknown) wrong-word or 'sound-alike' substitutions may have (unknown) (no (unknown) (unknown) methylprednisolone (units (unknown) date) Allergy (Severe, unknown) Verified 03/07/21 12:05) (unknown) (no (unknown) (unknown) morphine Allergy (units (unknown) date) (Severe, Verified unknown) 03/07/21 12:05) (unknown) (no (unknown) (unknown) movement normal, (units (unknown) date) congruent mood unknown) (unknown) (no (unknown) (unknown) obstruction, and (units (unknown) date) anxiety presents to unknown) establish care with concern today for (unknown) (no (unknown) (unknown) occurred due to the (unit s (unknown) date) inherent limitations unknown) of voice recognition software. Please (unknown) (no (unknown) (unknown) omeprazole 20 mg (units (unknown) date) tablet,delayed unknown) release 20 mg PO BID 03/07/21 [History Confirmed (unknown) (no (unknown) (unknown) ondansetron 4 mg (units (unknown) date) disintegrating unknown) tablet 4 mg PO Q8-12H PRN nausea and vomiting (unknown) (no (unknown) (unknown) patient is missing (units (unknown) date) several upper molars unknown) and is unable to chew food fully. (unknown) (no (unknown) (unknown) read the note (units ( unknown) date) carefully and unknown) recognize, using context, where these substitutions (unknown) (no (unknown) (unknown) really working for (units (unknown) date) her. Patient is also unknown) having severe headaches recently. (unknown) (no (unknown) (unknown) shortness of (units (u nknown) date) breath, chest pain, unknown) abdominal pain, nausea, vomiting, diarrhea, (unknown) (no (unknown) (unknown) software. Although (units (unknown) date) every effort is made unknown) to edit content, auditor appraiser errors Result panel 4 (unknown) (no (unknown) (unknown) (no value) (units (unk nown) date) unknown) (unknown) (no (unknown) (unknown) (no value) (units (unk nown) date) unknown) (unknown) (no (unknown) (unknown) 02/12/22 (units (unkno wn) date) unknown) (unknown) (no (unknown) (unknown) 10:49 (units (unkno wn) date) unknown) (unknown) (no (unknown) (unknown) Agitated (units (unkno wn) date) unknown) (unknown) (no (unknown) (unknown) NKE[place] Parekh [id number] (unit s (unknown) date) unknown) (unknown) (no (unknown) (unknown) Anaphylaxis (units (un known) date) unknown) (unknown) (no (unknown) (unknown) Draft (units (unkno wn) date) unknown) (unknown) (no (unknown) (unknown) Family Practice (units (unknown) date) Office Visit unknown) (unknown) (no (unknown) (unknown) [facility] ([facility] unknown) (unknown) (no (unknown) (unknown) Hives (units (unkno wn) date) unknown) (unknown) (no (unknown) (unknown) Vomiting (units (unkno wn) date) unknown) (unknown) (no (unknown) (unknown) (no value) (units (unk nown) date) unknown) (unknown) (no (unknown) (unknown) 02/12/22] (units (unkn own) date) unknown) (unknown) (no (unknown) (unknown) #14 tabs 05/09/21 (units (unknown) date) [Rx Confirmed unknown) 02/12/22] (unknown) (no (unknown) (unknown) [id number] (units (unkno wn) date) unknown) (unknown) (no (unknown) (unknown) 02/12/22 (units (unkno wn) date) unknown) (unknown) (no (unknown) (unknown) 02/12/22] (units (unkn own) date) unknown) (unknown) (no (unknown) (unknown) 12:05) (units (unkno wn) date) unknown) (unknown) (no (unknown) (unknown) 36-year-old woman (units (unknown) date) with history of unknown) PCOS, endometrial cancer?, partial bowel (unknown) (no (unknown) (unknown) Age/Sex: 36 / F (units (unknown) date) Date of Service: unknown) (unknown) (no (unknown) (unknown) Allergies (units (unkn own) date) unknown) (unknown) (no (unknown) (unknown) Anxiety (units (unkno wn) date) unknown) (unknown) (no (unknown) (unknown) Attending Dr: Austyn (unit s (unknown) date) Orlando Barahona unknown) (unknown) (no (unknown) (unknown) BMI 27.1 (units (unkno wn) date) unknown) (unknown) (no (unknown) (unknown) BP 100/62 (units (unkn own) date) unknown) (unknown) (no (unknown) (unknown) Blood Pressure (units (unknown) date) Location Lt brachial unknown) (unknown) (no (unknown) (unknown) Chief Complaint (units (unknown) date) unknown) (unknown) (no (unknown) (unknown) Chief Complaint: (units (unknown) date) Establish care unknown) (unknown) (no (unknown) (unknown) Conjunctivae: (units ( unknown) date) conjunctivae normal unknown) (unknown) (no (unknown) (unknown) : 1985 (units (unknown) date) Acct:[id number] unknown) (unknown) (no (unknown) (unknown) Dept at (units (unkno wn) date) . unknown) (unknown) (no (unknown) (unknown) Details: (units (unkno wn) date) unknown) (unknown) (no (unknown) (unknown) Documented By: (units (unknown) date) Austyn Perry D.O. unknown) 02/12/22 0725 (unknown) (no (unknown) (unknown) Exam (units (unkno wn) date) unknown) (unknown) (no (unknown) (unknown) Exam Narrative (units (unknown) date) unknown) (unknown) (no (unknown) (unknown) Exam Narrative: (units (unknown) date) unknown) (unknown) (no (unknown) (unknown) Eyelids: eyelids (units (unknown) date) normal unknown) (unknown) (no (unknown) (unknown) Eyes (units (unkno wn) date) unknown) (unknown) (no (unknown) (unknown) General: appearance (unit s (unknown) date) normal, both eyes unknown) and all related structures (unknown) (no (unknown) (unknown) General: (units (unkno wn) date) cooperative, healthy unknown) appearing and comfortable (unknown) (no (unknown) (unknown) HENMT (units (unkno wn) date) unknown) (unknown) (no (unknown) (unknown) HPI (units (unkno wn) date) unknown) (unknown) (no (unknown) (unknown) Head: normal to (units (unknown) date) inspection unknown) (unknown) (no (unknown) (unknown) Health maintenance (units (unknown) date) unknown) (unknown) (no (unknown) (unknown) Height 4 ft 10 in (units (unknown) date) unknown) (unknown) (no (unknown) (unknown) History of peptic (units (unknown) date) ulcer disease unknown) (unknown) (no (unknown) (unknown) Intake (units (unkno wn) date) unknown) (unknown) (no (unknown) (unknown) Intake Note: (units (u nknown) date) unknown) (unknown) (no (unknown) (unknown) Intake performed (units (unknown) date) by: Leyda Ruff unknown) (unknown) (no (unknown) (unknown) Intake- Clincial (units (unknown) date) Staff unknown) (unknown) (no (unknown) (unknown) Loc: [facility] (units (unkno wn) date) unknown) (unknown) (no (unknown) (unknown) Medical History (units (unknown) date) (Updated 09/17/21 @ unknown) 00:00 by ) (unknown) (no (unknown) (unknown) Medications (units (un known) date) unknown) (unknown) (no (unknown) (unknown) Neck: normal visual (unit s (unknown) date) inspection unknown) (unknown) (no (unknown) (unknown) Neuro: alert and (units (unknown) date) oriented x3, normal unknown) cognition, speech normal, normal gait (unknown) (no (unknown) (unknown) Nose: external nose (unit s (unknown) date) normal unknown) (unknown) (no (unknown) (unknown) Orientation: alert (units (unknown) date) and oriented x3 unknown) (unknown) (no (unknown) (unknown) Oxygen Delivery (units (unknown) date) Method room air unknown) (unknown) (no (unknown) (unknown) PFSH (units (unkno wn) date) unknown) (unknown) (no (unknown) (unknown) Pain (Scale Score (units (unknown) date) 4-6) 01/18/21 unknown) [History Confirmed 02/12/22] (unknown) (no (unknown) (unknown) Patient presents to (unit s (unknown) date) establish care, and unknown) discuss Patient's polycystic kidney (unknown) (no (unknown) (unknown) Patient was (units (un known) date) adapted, but unknown) recently nothing that she has done in the past is (unknown) (no (unknown) (unknown) Patient: (units (unkno wn) date) Ni Rosales A unknown) MR#: [id number] (unknown) (no (unknown) (unknown) Penicillins Allergy (unit s (unknown) date) (Severe, Verified unknown) 03/07/21 11:59) (unknown) (no (unknown) (unknown) Polycystic kidney (units (unknown) date) disease unknown) (unknown) (no (unknown) (unknown) Position Sitting (units (unknown) date) unknown) (unknown) (no (unknown) (unknown) Psych: grossly (units (unknown) date) normal and well unknown) kempt, mental status grossly normal, speech and (unknown) (no (unknown) (unknown) Pulse 64 (units (unkno wn) date) unknown) (unknown) (no (unknown) (unknown) Pulse Oximetry (%) (units (unknown) date) 98 unknown) (unknown) (no (unknown) (unknown) Pulse Source (units (u nknown) date) Monitor unknown) (unknown) (no (unknown) (unknown) Reaction 01/18/21 (units (unknown) date) [History Confirmed unknown) 02/12/22] (unknown) (no (unknown) (unknown) Reason For Visit (units (unknown) date) unknown) (unknown) (no (unknown) (unknown) Resp: normal (units (u nknown) date) respiratory effort unknown) and able to speak in complete sentences (unknown) (no (unknown) (unknown) Sclera: sclerae (units (unknown) date) normal unknown) (unknown) (no (unknown) (unknown) Shortness Of Breath (unit s (unknown) date) Or Wheezing 01/18/21 unknown) [History Confirmed 02/12/22] (unknown) (no (unknown) (unknown) Signed By: (units (unk nown) date) unknown) (unknown) (no (unknown) (unknown) Skin: no rashes or (units (unknown) date) lesions noted unknown) (unknown) (no (unknown) (unknown) Smoking Status: (units (unknown) date) Never smoker unknown) (unknown) (no (unknown) (unknown) Social History (units (unknown) date) unknown) (unknown) (no (unknown) (unknown) Status post (units (un known) date) appendectomy unknown) (unknown) (no (unknown) (unknown) Status post (units (un known) date) cholecystectomy unknown) (unknown) (no (unknown) (unknown) Surgical History (units (unknown) date) (Reviewed 09/02/21 @ unknown) 13:24 by Jose Rafael Oleary MD) (unknown) (no (unknown) (unknown) Temp 97.9 F (units (un known) date) unknown) (unknown) (no (unknown) (unknown) Temp Source (units (un known) date) Temporal Artery Scan unknown) (unknown) (no (unknown) (unknown) The patient denies (units (unknown) date) fever, weight loss, unknown) headache, loss of sense of smell, cough, (unknown) (no (unknown) (unknown) This note may have (units (unknown) date) been all or unknown) partially generated using voice recognition (unknown) (no (unknown) (unknown) Tobacco + Substance (unit s (unknown) date) Use unknown) (unknown) (no (unknown) (unknown) Tobacco Status (units (unknown) date) unknown) (unknown) (no (unknown) (unknown) 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: (units (unknown) date) Kidney disease unknown) (unknown) (no (unknown) (unknown) Vitals (units (unkno wn) date) unknown) (unknown) (no (unknown) (unknown) Weight 130 lb 2 oz (units (unknown) date) unknown) (unknown) (no (unknown) (unknown) acetaminophen 500 (units (unknown) date) mg tablet unknown) (Acetaminophen Extra Strength) 1,000 mg PO Q6H PRN (unknown) (no (unknown) (unknown) albuterol sulfate (units (unknown) date) 90 mcg/actuation unknown) aerosol inhaler 2 puff inhalation Q4HR PRN (unknown) (no (unknown) (unknown) alcohol intake: (units (unknown) date) never unknown) (unknown) (no (unknown) (unknown) aspirin Allergy (units (unknown) date) (Severe, Verified unknown) 03/07/21 12:01) (unknown) (no (unknown) (unknown) clavulanic acid (units (unknown) date) Allergy (Severe, unknown) Verified 03/07/21 12:00) (unknown) (no (unknown) (unknown) constipation, (units ( unknown) date) numbness and unknown) tingling. (unknown) (no (unknown) (unknown) disease. Patient (units (unknown) date) also have concerns unknown) with food getting stuck in her throat, (unknown) (no (unknown) (unknown) epinephrine 0.3 (units (unknown) date) mg/0.3 mL injection, unknown) auto-injector 0.3 mg IM PRN PRN Allergic (unknown) (no (unknown) (unknown) fentanyl Allergy (units (unknown) date) (Severe, Verified unknown) 03/07/21 12:05) (unknown) (no (unknown) (unknown) fluticasone [From (units (unknown) date) Flonase] Adverse unknown) Reaction (Intermediate, Verified 03/07/21 (unknown) (no (unknown) (unknown) have occurred. If (units (unknown) date) there are any unknown) questions, please contact the Medical Records (unknown) (no (unknown) (unknown) household members: (units (unknown) date) spouse and children unknown) (unknown) (no (unknown) (unknown) hydrocodone Adverse (unit s (unknown) date) Reaction (Severe, unknown) Verified 03/07/21 12:05) (unknown) (no (unknown) (unknown) loratadine 10 mg (units (unknown) date) tablet (Claritin) 10 unknown) mg PO DAILY 01/18/21 [History Confirmed (unknown) (no (unknown) (unknown) may occur. (units (unk nown) date) Occasional unknown) wrong-word or 'sound-alike' substitutions may have (unknown) (no (unknown) (unknown) methylprednisolone (units (unknown) date) Allergy (Severe, unknown) Verified 03/07/21 12:05) (unknown) (no (unknown) (unknown) morphine Allergy (units (unknown) date) (Severe, Verified unknown) 03/07/21 12:05) (unknown) (no (unknown) (unknown) movement normal, (units (unknown) date) congruent mood unknown) (unknown) (no (unknown) (unknown) obstruction, and (units (unknown) date) anxiety presents to unknown) establish care with concern today for (unknown) (no (unknown) (unknown) occurred due to the (unit s (unknown) date) inherent limitations unknown) of voice recognition software. Please (unknown) (no (unknown) (unknown) omeprazole 20 mg (units (unknown) date) tablet,delayed unknown) release 20 mg PO BID 03/07/21 [History Confirmed (unknown) (no (unknown) (unknown) ondansetron 4 mg (units (unknown) date) disintegrating unknown) tablet 4 mg PO Q8-12H PRN nausea and vomiting (unknown) (no (unknown) (unknown) patient is missing (units (unknown) date) several upper molars unknown) and is unable to chew food fully. (unknown) (no (unknown) (unknown) read the note (units ( unknown) date) carefully and unknown) recognize, using context, where these substitutions (unknown) (no (unknown) (unknown) really working for (units (unknown) date) her. Patient is also unknown) having severe headaches recently. (unknown) (no (unknown) (unknown) shortness of (units (u nknown) date) breath, chest pain, unknown) abdominal pain, nausea, vomiting, diarrhea, (unknown) (no (unknown) (unknown) software. Although (units (unknown) date) every effort is made unknown) to edit content, auditor appraiser errors Result panel 5 (unknown) (no (unknown) (unknown) (no value) (units (unk nown) date) unknown) (unknown) (no (unknown) (unknown) (no value) (units (unk nown) date) unknown) (unknown) (no (unknown) (unknown) 02/12/22 (units (unkno wn) date) unknown) (unknown) (no (unknown) (unknown) 10:49 (units (unkno wn) date) unknown) (unknown) (no (unknown) (unknown) Agitated (units (unkno wn) date) unknown) (unknown) (no (unknown) (unknown) [place] P[place] [id number] (unit s (unknown) date) unknown) (unknown) (no (unknown) (unknown) Anaphylaxis (units (un known) date) unknown) (unknown) (no (unknown) (unknown) Draft (units (unkno wn) date) unknown) (unknown) (no (unknown) (unknown) Family Practice (units (unknown) date) Office Visit unknown) (unknown) (no (unknown) (unknown) [facility] ([facility] unknown) (unknown) (no (unknown) (unknown) Hives (units (unkno wn) date) unknown) (unknown) (no (unknown) (unknown) Vomiting (units (unkno wn) date) unknown) (unknown) (no (unknown) (unknown) (no value) (units (unk nown) date) unknown) (unknown) (no (unknown) (unknown) 02/12/22] (units (unkn own) date) unknown) (unknown) (no (unknown) (unknown) #14 tabs 05/09/21 (units (unknown) date) [Rx Confirmed unknown) 02/12/22] (unknown) (no (unknown) (unknown) [id number] (units (unkno wn) date) unknown) (unknown) (no (unknown) (unknown) 02/12/22 (units (unkno wn) date) unknown) (unknown) (no (unknown) (unknown) 02/12/22] (units (unkn own) date) unknown) (unknown) (no (unknown) (unknown) 12:05) (units (unkno wn) date) unknown) (unknown) (no (unknown) (unknown) 36-year-old woman (units (unknown) date) with history of unknown) PCOS, endometrial cancer?, partial bowel (unknown) (no (unknown) (unknown) Age/Sex: 36 / F (units (unknown) date) Date of Service: unknown) (unknown) (no (unknown) (unknown) Allergies (units (unkn own) date) unknown) (unknown) (no (unknown) (unknown) Anxiety (units (unkno wn) date) unknown) (unknown) (no (unknown) (unknown) Attending Dr: Austyn (unit s (unknown) date) Orlando Barahona unknown) (unknown) (no (unknown) (unknown) BMI 27.1 (units (unkno wn) date) unknown) (unknown) (no (unknown) (unknown) BP 100/62 (units (unkn own) date) unknown) (unknown) (no (unknown) (unknown) Blood Pressure (units (unknown) date) Location Lt brachial unknown) (unknown) (no (unknown) (unknown) Chief Complaint (units (unknown) date) unknown) (unknown) (no (unknown) (unknown) Chief Complaint: (units (unknown) date) Establish care unknown) (unknown) (no (unknown) (unknown) Conjunctivae: (units ( unknown) date) conjunctivae normal unknown) (unknown) (no (unknown) (unknown) : 1985 (units (unknown) date) Acct:[id number] unknown) (unknown) (no (unknown) (unknown) Dept at (units (unkno wn) date) . unknown) (unknown) (no (unknown) (unknown) Details: (units (unkno wn) date) unknown) (unknown) (no (unknown) (unknown) Documented By: (units (unknown) date) Austyn Perry D.O. unknown) 02/12/22 0725 (unknown) (no (unknown) (unknown) Exam (units (unkno wn) date) unknown) (unknown) (no (unknown) (unknown) Exam Narrative (units (unknown) date) unknown) (unknown) (no (unknown) (unknown) Exam Narrative: (units (unknown) date) unknown) (unknown) (no (unknown) (unknown) Eyelids: eyelids (units (unknown) date) normal unknown) (unknown) (no (unknown) (unknown) Eyes (units (unkno wn) date) unknown) (unknown) (no (unknown) (unknown) General: appearance (unit s (unknown) date) normal, both eyes unknown) and all related structures (unknown) (no (unknown) (unknown) General: (units (unkno wn) date) cooperative, healthy unknown) appearing and comfortable (unknown) (no (unknown) (unknown) HENMT (units (unkno wn) date) unknown) (unknown) (no (unknown) (unknown) HPI (units (unkno wn) date) unknown) (unknown) (no (unknown) (unknown) Head: normal to (units (unknown) date) inspection unknown) (unknown) (no (unknown) (unknown) Health maintenance (units (unknown) date) unknown) (unknown) (no (unknown) (unknown) Height 4 ft 10 in (units (unknown) date) unknown) (unknown) (no (unknown) (unknown) History of peptic (units (unknown) date) ulcer disease unknown) (unknown) (no (unknown) (unknown) Intake (units (unkno wn) date) unknown) (unknown) (no (unknown) (unknown) Intake Note: (units (u nknown) date) unknown) (unknown) (no (unknown) (unknown) Intake performed (units (unknown) date) by: Leyda Ruff unknown) (unknown) (no (unknown) (unknown) Intake- Clincial (units (unknown) date) Staff unknown) (unknown) (no (unknown) (unknown) Loc: [facility] (units (unkno wn) date) unknown) (unknown) (no (unknown) (unknown) Medical History (units (unknown) date) (Updated 09/17/21 @ unknown) 00:00 by ) (unknown) (no (unknown) (unknown) Medications (units (un known) date) unknown) (unknown) (no (unknown) (unknown) Neck: normal visual (unit s (unknown) date) inspection unknown) (unknown) (no (unknown) (unknown) Neuro: alert and (units (unknown) date) oriented x3, normal unknown) cognition, speech normal, normal gait (unknown) (no (unknown) (unknown) Nose: external nose (unit s (unknown) date) normal unknown) (unknown) (no (unknown) (unknown) Orientation: alert (units (unknown) date) and oriented x3 unknown) (unknown) (no (unknown) (unknown) Oxygen Delivery (units (unknown) date) Method room air unknown) (unknown) (no (unknown) (unknown) PFSH (units (unkno wn) date) unknown) (unknown) (no (unknown) (unknown) Pain (Scale Score (units (unknown) date) 4-6) 01/18/21 unknown) [History Confirmed 02/12/22] (unknown) (no (unknown) (unknown) Patient presents to (unit s (unknown) date) establish care, and unknown) discuss Patient's polycystic kidney (unknown) (no (unknown) (unknown) Patient was (units (un known) date) adapted, but unknown) recently nothing that she has done in the past is (unknown) (no (unknown) (unknown) Patient: (units (unkno wn) date) Ni Rosales Lori unknown) MR#: [id number] (unknown) (no (unknown) (unknown) Penicillins Allergy (unit s (unknown) date) (Severe, Verified unknown) 03/07/21 11:59) (unknown) (no (unknown) (unknown) Polycystic kidney (units (unknown) date) disease unknown) (unknown) (no (unknown) (unknown) Position Sitting (units (unknown) date) unknown) (unknown) (no (unknown) (unknown) Psych: grossly (units (unknown) date) normal and well unknown) kempt, mental status grossly normal, speech and (unknown) (no (unknown) (unknown) Pulse 64 (units (unkno wn) date) unknown) (unknown) (no (unknown) (unknown) Pulse Oximetry (%) (units (unknown) date) 98 unknown) (unknown) (no (unknown) (unknown) Pulse Source (units (u nknown) date) Monitor unknown) (unknown) (no (unknown) (unknown) Reaction 01/18/21 (units (unknown) date) [History Confirmed unknown) 02/12/22] (unknown) (no (unknown) (unknown) Reason For Visit (units (unknown) date) unknown) (unknown) (no (unknown) (unknown) Resp: normal (units (u nknown) date) respiratory effort unknown) and able to speak in complete sentences (unknown) (no (unknown) (unknown) Sclera: sclerae (units (unknown) date) normal unknown) (unknown) (no (unknown) (unknown) Shortness Of Breath (unit s (unknown) date) Or Wheezing 01/18/21 unknown) [History Confirmed 02/12/22] (unknown) (no (unknown) (unknown) Signed By: (units (unk nown) date) unknown) (unknown) (no (unknown) (unknown) Skin: no rashes or (units (unknown) date) lesions noted unknown) (unknown) (no (unknown) (unknown) Smoking Status: (units (unknown) date) Never smoker unknown) (unknown) (no (unknown) (unknown) Social History (units (unknown) date) unknown) (unknown) (no (unknown) (unknown) Status post (units (un known) date) appendectomy unknown) (unknown) (no (unknown) (unknown) Status post (units (un known) date) cholecystectomy unknown) (unknown) (no (unknown) (unknown) Surgical History (units (unknown) date) (Reviewed 09/02/21 @ unknown) 13:24 by Jose Rafael Oleary MD) (unknown) (no (unknown) (unknown) Temp 97.9 F (units (un known) date) unknown) (unknown) (no (unknown) (unknown) Temp Source (units (un known) date) Temporal Artery Scan unknown) (unknown) (no (unknown) (unknown) The patient denies (units (unknown) date) fever, weight loss, unknown) headache, loss of sense of smell, cough, (unknown) (no (unknown) (unknown) This note may have (units (unknown) date) been all or unknown) partially generated using voice recognition (unknown) (no (unknown) (unknown) Tobacco + Substance (unit s (unknown) date) Use unknown) (unknown) (no (unknown) (unknown) Tobacco Status (units (unknown) date) unknown) (unknown) (no (unknown) (unknown) 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: (units (unknown) date) Kidney disease unknown) (unknown) (no (unknown) (unknown) Vitals (units (unkno wn) date) unknown) (unknown) (no (unknown) (unknown) Weight 130 lb 2 oz (units (unknown) date) unknown) (unknown) (no (unknown) (unknown) acetaminophen 500 (units (unknown) date) mg tablet unknown) (Acetaminophen Extra Strength) 1,000 mg PO Q6H PRN (unknown) (no (unknown) (unknown) albuterol sulfate (units (unknown) date) 90 mcg/actuation unknown) aerosol inhaler 2 puff inhalation Q4HR PRN (unknown) (no (unknown) (unknown) alcohol intake: (units (unknown) date) never unknown) (unknown) (no (unknown) (unknown) aspirin Allergy (units (unknown) date) (Severe, Verified unknown) 03/07/21 12:01) (unknown) (no (unknown) (unknown) clavulanic acid (units (unknown) date) Allergy (Severe, unknown) Verified 03/07/21 12:00) (unknown) (no (unknown) (unknown) constipation, (units ( unknown) date) numbness and unknown) tingling. (unknown) (no (unknown) (unknown) disease. Patient (units (unknown) date) also have concerns unknown) with food getting stuck in her throat, (unknown) (no (unknown) (unknown) epinephrine 0.3 (units (unknown) date) mg/0.3 mL injection, unknown) auto-injector 0.3 mg IM PRN PRN Allergic (unknown) (no (unknown) (unknown) fentanyl Allergy (units (unknown) date) (Severe, Verified unknown) 03/07/21 12:05) (unknown) (no (unknown) (unknown) fluticasone [From (units (unknown) date) Flonase] Adverse unknown) Reaction (Intermediate, Verified 03/07/21 (unknown) (no (unknown) (unknown) have occurred. If (units (unknown) date) there are any unknown) questions, please contact the Medical Records (unknown) (no (unknown) (unknown) household members: (units (unknown) date) spouse and children unknown) (unknown) (no (unknown) (unknown) hydrocodone Adverse (unit s (unknown) date) Reaction (Severe, unknown) Verified 03/07/21 12:05) (unknown) (no (unknown) (unknown) loratadine 10 mg (units (unknown) date) tablet (Claritin) 10 unknown) mg PO DAILY 01/18/21 [History Confirmed (unknown) (no (unknown) (unknown) may occur. (units (unk nown) date) Occasional unknown) wrong-word or 'sound-alike' substitutions may have (unknown) (no (unknown) (unknown) methylprednisolone (units (unknown) date) Allergy (Severe, unknown) Verified 03/07/21 12:05) (unknown) (no (unknown) (unknown) morphine Allergy (units (unknown) date) (Severe, Verified unknown) 03/07/21 12:05) (unknown) (no (unknown) (unknown) movement normal, (units (unknown) date) congruent mood unknown) (unknown) (no (unknown) (unknown) obstruction, and (units (unknown) date) anxiety presents to unknown) establish care with concern today for (unknown) (no (unknown) (unknown) occurred due to the (unit s (unknown) date) inherent limitations unknown) of voice recognition software. Please (unknown) (no (unknown) (unknown) omeprazole 20 mg (units (unknown) date) tablet,delayed unknown) release 20 mg PO BID 03/07/21 [History Confirmed (unknown) (no (unknown) (unknown) ondansetron 4 mg (units (unknown) date) disintegrating unknown) tablet 4 mg PO Q8-12H PRN nausea and vomiting (unknown) (no (unknown) (unknown) patient is missing (units (unknown) date) several upper molars unknown) and is unable to chew food fully. (unknown) (no (unknown) (unknown) read the note (units ( unknown) date) carefully and unknown) recognize, using context, where these substitutions (unknown) (no (unknown) (unknown) really working for (units (unknown) date) her. Patient is also unknown) having severe headaches recently. (unknown) (no (unknown) (unknown) shortness of (units (u nknown) date) breath, chest pain, unknown) abdominal pain, nausea, vomiting, diarrhea, (unknown) (no (unknown) (unknown) software. Although (units (unknown) date) every effort is made unknown) to edit content, auditor appraiser errors Result panel 6 (unknown) (no (unknown) (unknown) (no value) (units (unk nown) date) unknown) (unknown) (no (unknown) (unknown) (no value) (units (unk nown) date) unknown) (unknown) (no (unknown) (unknown) 02/12/22 (units (unkno wn) date) unknown) (unknown) (no (unknown) (unknown) 10:49 (units (unkno wn) date) unknown) (unknown) (no (unknown) (unknown) Agitated (units (unkno wn) date) unknown) (unknown) (no (unknown) (unknown) [place] [id number] (unit s (unknown) date) unknown) (unknown) (no (unknown) (unknown) Anaphylaxis (units (un known) date) unknown) (unknown) (no (unknown) (unknown) Draft (units (unkno wn) date) unknown) (unknown) (no (unknown) (unknown) Family Practice (units (unknown) date) Office Visit unknown) (unknown) (no (unknown) (unknown) [facility] ([facility] unknown) (unknown) (no (unknown) (unknown) Hives (units (unkno wn) date) unknown) (unknown) (no (unknown) (unknown) Vomiting (units (unkno wn) date) unknown) (unknown) (no (unknown) (unknown) (no value) (units (unk nown) date) unknown) (unknown) (no (unknown) (unknown) 02/12/22] (units (unkn own) date) unknown) (unknown) (no (unknown) (unknown) #14 tabs 05/09/21 (units (unknown) date) [Rx Confirmed unknown) 02/12/22] (unknown) (no (unknown) (unknown) [id number] (units (unkno wn) date) unknown) (unknown) (no (unknown) (unknown) 02/12/22 (units (unkno wn) date) unknown) (unknown) (no (unknown) (unknown) 02/12/22] (units (unkn own) date) unknown) (unknown) (no (unknown) (unknown) 12:05) (units (unkno wn) date) unknown) (unknown) (no (unknown) (unknown) 36-year-old woman (units (unknown) date) with history of unknown) ovarian cysts, polycystic kidney disease, (unknown) (no (unknown) (unknown) Age/Sex: 36 / F (units (unknown) date) Date of Service: unknown) (unknown) (no (unknown) (unknown) Allergies (units (unkn own) date) unknown) (unknown) (no (unknown) (unknown) Anxiety (units (unkno wn) date) unknown) (unknown) (no (unknown) (unknown) Attending Dr: Austyn (unit s (unknown) date) [place] MaxOSenia unknown) (unknown) (no (unknown) (unknown) BMI 27.1 (units (unkno wn) date) unknown) (unknown) (no (unknown) (unknown) BP 100/62 (units (unkn own) date) unknown) (unknown) (no (unknown) (unknown) Blood Pressure (units (unknown) date) Location Lt brachial unknown) (unknown) (no (unknown) (unknown) Chief Complaint (units (unknown) date) unknown) (unknown) (no (unknown) (unknown) Chief Complaint: (units (unknown) date) Establish care unknown) (unknown) (no (unknown) (unknown) Conjunctivae: (units ( unknown) date) conjunctivae normal unknown) (unknown) (no (unknown) (unknown) : 1985 (units (unknown) date) Acct:[id number] unknown) (unknown) (no (unknown) (unknown) Dept at (units (unkno wn) date) . unknown) (unknown) (no (unknown) (unknown) Details: (units (unkno wn) date) unknown) (unknown) (no (unknown) (unknown) Documented By: (units (unknown) date) Austyn Perry DSeniaOSenia unknown) 02/12/22 0725 (unknown) (no (unknown) (unknown) Exam (units (unkno wn) date) unknown) (unknown) (no (unknown) (unknown) Exam Narrative (units (unknown) date) unknown) (unknown) (no (unknown) (unknown) Exam Narrative: (units (unknown) date) unknown) (unknown) (no (unknown) (unknown) Eyelids: eyelids (units (unknown) date) normal unknown) (unknown) (no (unknown) (unknown) Eyes (units (unkno wn) date) unknown) (unknown) (no (unknown) (unknown) General: appearance (unit s (unknown) date) normal, both eyes unknown) and all related structures (unknown) (no (unknown) (unknown) General: (units (unkno wn) date) cooperative, healthy unknown) appearing and comfortable (unknown) (no (unknown) (unknown) HENMT (units (unkno wn) date) unknown) (unknown) (no (unknown) (unknown) HPI (units (unkno wn) date) unknown) (unknown) (no (unknown) (unknown) Head: normal to (units (unknown) date) inspection unknown) (unknown) (no (unknown) (unknown) Health maintenance (units (unknown) date) unknown) (unknown) (no (unknown) (unknown) Height 4 ft 10 in (units (unknown) date) unknown) (unknown) (no (unknown) (unknown) History of peptic (units (unknown) date) ulcer disease unknown) (unknown) (no (unknown) (unknown) Intake (units (unkno wn) date) unknown) (unknown) (no (unknown) (unknown) Intake Note: (units (u nknown) date) unknown) (unknown) (no (unknown) (unknown) Intake performed (units (unknown) date) by: Leyda Ruff unknown) (unknown) (no (unknown) (unknown) Intake- Clincial (units (unknown) date) Staff unknown) (unknown) (no (unknown) (unknown) Loc: [facility] (units (unkno wn) date) unknown) (unknown) (no (unknown) (unknown) Medical History (units (unknown) date) (Updated 09/17/21 @ unknown) 00:00 by ) (unknown) (no (unknown) (unknown) Medications (units (un known) date) unknown) (unknown) (no (unknown) (unknown) Neck: normal visual (unit s (unknown) date) inspection unknown) (unknown) (no (unknown) (unknown) Neuro: alert and (units (unknown) date) oriented x3, normal unknown) cognition, speech normal, normal gait (unknown) (no (unknown) (unknown) Nose: external nose (unit s (unknown) date) normal unknown) (unknown) (no (unknown) (unknown) Orientation: alert (units (unknown) date) and oriented x3 unknown) (unknown) (no (unknown) (unknown) Oxygen Delivery (units (unknown) date) Method room air unknown) (unknown) (no (unknown) (unknown) PFSH (units (unkno wn) date) unknown) (unknown) (no (unknown) (unknown) Pain (Scale Score (units (unknown) date) 4-6) 01/18/21 unknown) [History Confirmed 02/12/22] (unknown) (no (unknown) (unknown) Patient presents to (unit s (unknown) date) establish care, and unknown) discuss Patient's polycystic kidney (unknown) (no (unknown) (unknown) Patient was (units (un known) date) adapted, but unknown) recently nothing that she has done in the past is (unknown) (no (unknown) (unknown) Patient: (units (unkno wn) date) Ni Rosales A unknown) MR#: [id number] (unknown) (no (unknown) (unknown) Pen[place]illins Allergy (unit s (unknown) date) (Severe, Verified unknown) 03/07/21 11:59) (unknown) (no (unknown) (unknown) Polycystic kidney (units (unknown) date) disease unknown) (unknown) (no (unknown) (unknown) Position Sitting (units (unknown) date) unknown) (unknown) (no (unknown) (unknown) Psych: grossly (units (unknown) date) normal and well unknown) kempt, mental status grossly normal, speech and (unknown) (no (unknown) (unknown) Pulse 64 (units (unkno wn) date) unknown) (unknown) (no (unknown) (unknown) Pulse Oximetry (%) (units (unknown) date) 98 unknown) (unknown) (no (unknown) (unknown) Pulse Source (units (u nknown) date) Monitor unknown) (unknown) (no (unknown) (unknown) Reaction 01/18/21 (units (unknown) date) [History Confirmed unknown) 02/12/22] (unknown) (no (unknown) (unknown) Reason For Visit (units (unknown) date) unknown) (unknown) (no (unknown) (unknown) Resp: normal (units (u nknown) date) respiratory effort unknown) and able to speak in complete sentences (unknown) (no (unknown) (unknown) Sclera: sclerae (units (unknown) date) normal unknown) (unknown) (no (unknown) (unknown) Shortness Of Breath (unit s (unknown) date) Or Wheezing 01/18/21 unknown) [History Confirmed 02/12/22] (unknown) (no (unknown) (unknown) Signed By: (units (unk nown) date) unknown) (unknown) (no (unknown) (unknown) Skin: no rashes or (units (unknown) date) lesions noted unknown) (unknown) (no (unknown) (unknown) Smoking Status: (units (unknown) date) Never smoker unknown) (unknown) (no (unknown) (unknown) Social History (units (unknown) date) unknown) (unknown) (no (unknown) (unknown) Status post (units (un known) date) appendectomy unknown) (unknown) (no (unknown) (unknown) Status post (units (un known) date) cholecystectomy unknown) (unknown) (no (unknown) (unknown) Surgical History (units (unknown) date) (Reviewed 09/02/21 @ unknown) 13:24 by Jose Rafael Oleary MD) (unknown) (no (unknown) (unknown) Temp 97.9 F (units (un known) date) unknown) (unknown) (no (unknown) (unknown) Temp Source (units (un known) date) Temporal Artery Scan unknown) (unknown) (no (unknown) (unknown) The patient denies (units (unknown) date) fever, weight loss, unknown) headache, loss of sense of smell, cough, (unknown) (no (unknown) (unknown) This note may have (units (unknown) date) been all or unknown) partially generated using voice recognition (unknown) (no (unknown) (unknown) Tobacco + Substance (unit s (unknown) date) Use unknown) (unknown) (no (unknown) (unknown) Tobacco Status (units (unknown) date) unknown) (unknown) (no (unknown) (unknown) 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: (units (unknown) date) Kidney disease unknown) (unknown) (no (unknown) (unknown) Vitals (units (unkno wn) date) unknown) (unknown) (no (unknown) (unknown) Weight 130 lb 2 oz (units (unknown) date) unknown) (unknown) (no (unknown) (unknown) acetaminophen 500 (units (unknown) date) mg tablet unknown) (Acetaminophen Extra Strength) 1,000 mg PO Q6H PRN (unknown) (no (unknown) (unknown) albuterol sulfate (units (unknown) date) 90 mcg/actuation unknown) aerosol inhaler 2 puff inhalation Q4HR PRN (unknown) (no (unknown) (unknown) alcohol intake: (units (unknown) date) never unknown) (unknown) (no (unknown) (unknown) as an hour and she (units (unknown) date) repeatedly vomited unknown) to get it dislodged, with difficult (unknown) (no (unknown) (unknown) aspirin Allergy (units (unknown) date) (Severe, Verified unknown) 03/07/21 12:01) (unknown) (no (unknown) (unknown) careful to overchew (units (unknown) date) and take small bites unknown) but sometimes food is stuck for as long (unknown) (no (unknown) (unknown) cervical cancer, (units (unknown) date) s/p hysterectomy for unknown) severe menorrhagia, partial bowel (unknown) (no (unknown) (unknown) clavulanic acid (units (unknown) date) Allergy (Severe, unknown) Verified 03/07/21 12:00) (unknown) (no (unknown) (unknown) constipation, (units ( unknown) date) numbness and unknown) tingling. (unknown) (no (unknown) (unknown) disease. Patient (units (unknown) date) also have concerns unknown) with food getting stuck in her throat, (unknown) (no (unknown) (unknown) epinephrine 0.3 (units (unknown) date) mg/0.3 mL injection, unknown) auto-injector 0.3 mg IM PRN PRN Allergic (unknown) (no (unknown) (unknown) episodes twice a (units (unknown) date) week. unknown) (unknown) (no (unknown) (unknown) fentanyl Allergy (units (unknown) date) (Severe, Verified unknown) 03/07/21 12:05) (unknown) (no (unknown) (unknown) fluticasone [From (units (unknown) date) Flonase] Adverse unknown) Reaction (Intermediate, Verified 03/07/21 (unknown) (no (unknown) (unknown) getting stuck in (units (unknown) date) her esophagus below unknown) the collar bone. She is being extremely (unknown) (no (unknown) (unknown) have occurred. If (units (unknown) date) there are any unknown) questions, please contact the Medical Records (unknown) (no (unknown) (unknown) household members: (units (unknown) date) spouse and children unknown) (unknown) (no (unknown) (unknown) hydrocodone Adverse (unit s (unknown) date) Reaction (Severe, unknown) Verified 03/07/21 12:05) (unknown) (no (unknown) (unknown) loratadine 10 mg (units (unknown) date) tablet (Claritin) 10 unknown) mg PO DAILY 01/18/21 [History Confirmed (unknown) (no (unknown) (unknown) may occur. (units (unk nown) date) Occasional unknown) wrong-word or 'sound-alike' substitutions may have (unknown) (no (unknown) (unknown) methylprednisolone (units (unknown) date) Allergy (Severe, unknown) Verified 03/07/21 12:05) (unknown) (no (unknown) (unknown) morphine Allergy (units (unknown) date) (Severe, Verified unknown) 03/07/21 12:05) (unknown) (no (unknown) (unknown) movement normal, (units (unknown) date) congruent mood unknown) (unknown) (no (unknown) (unknown) obstruction, and (units (unknown) date) anxiety presents to unknown) establish care with concern today for food (unknown) (no (unknown) (unknown) occurred due to the (unit s (unknown) date) inherent limitations unknown) of voice recognition software. Please (unknown) (no (unknown) (unknown) omeprazole 20 mg (units (unknown) date) tablet,delayed unknown) release 20 mg PO BID 03/07/21 [History Confirmed (unknown) (no (unknown) (unknown) ondansetron 4 mg (units (unknown) date) disintegrating unknown) tablet 4 mg PO Q8-12H PRN nausea and vomiting (unknown) (no (unknown) (unknown) patient is missing (units (unknown) date) several upper molars unknown) and is unable to chew food fully. (unknown) (no (unknown) (unknown) read the note (units ( unknown) date) carefully and unknown) recognize, using context, where these substitutions (unknown) (no (unknown) (unknown) really working for (units (unknown) date) her. Patient is also unknown) having severe headaches recently. (unknown) (no (unknown) (unknown) shortness of (units (u nknown) date) breath, chest pain, unknown) abdominal pain, nausea, vomiting, diarrhea, (unknown) (no (unknown) (unknown) software. Although (units (unknown) date) every effort is made unknown) to edit content, auditor appraiser errors Result panel 7 (unknown) (no (unknown) (unknown) (no value) (units (unk nown) date) unknown) (unknown) (no (unknown) (unknown) Orders: (units (unkno wn) date) unknown) (unknown) (no (unknown) (unknown) Status: Acute (units ( unknown) date) unknown) (unknown) (no (unknown) (unknown) (no value) (units (unk nown) date) unknown) (unknown) (no (unknown) (unknown) 02/12/22 (units (unkno wn) date) unknown) (unknown) (no (unknown) (unknown) 10:49 (units (unkno wn) date) unknown) (unknown) (no (unknown) (unknown) Agitated (units (unkno wn) date) unknown) (unknown) (no (unknown) (unknown) [place] [id number] (unit s (unknown) date) unknown) (unknown) (no (unknown) (unknown) Anaphylaxis (units (un known) date) unknown) (unknown) (no (unknown) (unknown) Draft (units (unkno wn) date) unknown) (unknown) (no (unknown) (unknown) Family Practice (units (unknown) date) Office Visit unknown) (unknown) (no (unknown) (unknown) [facility]units ([facility] date[facility] unknown) (unknown) (no (unknown) (unknown) Hives (units (unkno wn) date) unknown) (unknown) (no (unknown) (unknown) Vomiting (units (unkno wn) date) unknown) (unknown) (no (unknown) (unknown) (no value) (units (unk nown) date) unknown) (unknown) (no (unknown) (unknown) 02/12/22] (units (unkn own) date) unknown) (unknown) (no (unknown) (unknown) #14 tabs 05/09/21 (units (unknown) date) [Rx Confirmed unknown) 02/12/22] (unknown) (no (unknown) (unknown) (1) Food sticks on (units (unknown) date) swallowing: unknown) (unknown) (no (unknown) (unknown) [id number] (units (unkno wn) date) unknown) (unknown) (no (unknown) (unknown) 02/12/22 (units (unkno wn) date) unknown) (unknown) (no (unknown) (unknown) 02/12/22] (units (unkn own) date) unknown) (unknown) (no (unknown) (unknown) 12:05) (units (unkno wn) date) unknown) (unknown) (no (unknown) (unknown) 36-year-old woman (units (unknown) date) with history of unknown) ovarian cysts, polycystic kidney disease, s/p (unknown) (no (unknown) (unknown) Add'l Complaint: (units (unknown) date) unknown) (unknown) (no (unknown) (unknown) Age/Sex: 36 / F (units (unknown) date) Date of Service: unknown) (unknown) (no (unknown) (unknown) Allergies (units (unkn own) date) unknown) (unknown) (no (unknown) (unknown) Anxiety (units (unkno wn) date) unknown) (unknown) (no (unknown) (unknown) Assessment + Plan (units (unknown) date) unknown) (unknown) (no (unknown) (unknown) Attending Dr: Austyn (unit s (unknown) date) Orlando D.OSenia unknown) (unknown) (no (unknown) (unknown) BMI 27.1 (units (unkno wn) date) unknown) (unknown) (no (unknown) (unknown) BP 100/62 (units (unkn own) date) unknown) (unknown) (no (unknown) (unknown) Blood Pressure (units (unknown) date) Location Lt brachial unknown) (unknown) (no (unknown) (unknown) Chief Complaint (units (unknown) date) unknown) (unknown) (no (unknown) (unknown) Chief Complaint: (units (unknown) date) Establish care unknown) (unknown) (no (unknown) (unknown) Conjunctivae: (units ( unknown) date) conjunctivae normal unknown) (unknown) (no (unknown) (unknown) : 1985 (units (unknown) date) Acct:[id number] unknown) (unknown) (no (unknown) (unknown) Dept at (units (unkno wn) date) . unknown) (unknown) (no (unknown) (unknown) Details: (units (unkno wn) date) unknown) (unknown) (no (unknown) (unknown) Documented By: (units (unknown) date) Austyn Perry D.O. unknown) 02/12/22 0725 (unknown) (no (unknown) (unknown) Exam (units (unkno wn) date) unknown) (unknown) (no (unknown) (unknown) Exam Narrative (units (unknown) date) unknown) (unknown) (no (unknown) (unknown) Exam Narrative: (units (unknown) date) unknown) (unknown) (no (unknown) (unknown) Eyelids: eyelids (units (unknown) date) normal unknown) (unknown) (no (unknown) (unknown) Eyes (units (unkno wn) date) unknown) (unknown) (no (unknown) (unknown) Food sticks on (units (unknown) date) swallowing unknown) (unknown) (no (unknown) (unknown) General: appearance (unit s (unknown) date) normal, both eyes unknown) and all related structures (unknown) (no (unknown) (unknown) General: (units (unkno wn) date) cooperative, healthy unknown) appearing and comfortable (unknown) (no (unknown) (unknown) HENMT (units (unkno wn) date) unknown) (unknown) (no (unknown) (unknown) HPI (units (unkno wn) date) unknown) (unknown) (no (unknown) (unknown) Head: normal to (units (unknown) date) inspection unknown) (unknown) (no (unknown) (unknown) Health maintenance: (units (unknown) date) no further paps, has unknown) had one negative mammogram bc of fhx of (unknown) (no (unknown) (unknown) Height 4 ft 10 in (units (unknown) date) unknown) (unknown) (no (unknown) (unknown) History of peptic (units (unknown) date) ulcer disease unknown) (unknown) (no (unknown) (unknown) Intake (units (unkno wn) date) unknown) (unknown) (no (unknown) (unknown) Intake Note: (units (u nknown) date) unknown) (unknown) (no (unknown) (unknown) Intake performed (units (unknown) date) by: Leyda Ruff unknown) (unknown) (no (unknown) (unknown) Intake- Clincial (units (unknown) date) Staff unknown) (unknown) (no (unknown) (unknown) Loc: [facility] (units (unkno wn) date) unknown) (unknown) (no (unknown) (unknown) MM screening mammo (units (unknown) date) BI 1 Week Z12.31 - unknown) Encounter for screening mammogram for (unknown) (no (unknown) (unknown) Medical History (units (unknown) date) (Reviewed 02/12/22 @ unknown) 11:20 by Austyn Perry DO) (unknown) (no (unknown) (unknown) Medications (units (un known) date) unknown) (unknown) (no (unknown) (unknown) Neck: normal visual (unit s (unknown) date) inspection unknown) (unknown) (no (unknown) (unknown) Neuro: alert and (units (unknown) date) oriented x3, normal unknown) cognition, speech normal, normal gait (unknown) (no (unknown) (unknown) Nose: external nose (unit s (unknown) date) normal unknown) (unknown) (no (unknown) (unknown) Orders (units (unkno wn) date) unknown) (unknown) (no (unknown) (unknown) Orientation: alert (units (unknown) date) and oriented x3 unknown) (unknown) (no (unknown) (unknown) Oxygen Delivery (units (unknown) date) Method room air unknown) (unknown) (no (unknown) (unknown) PFSH (units (unkno wn) date) unknown) (unknown) (no (unknown) (unknown) Pain (Scale Score (units (unknown) date) 4-6) 01/18/21 unknown) [History Confirmed 02/12/22] (unknown) (no (unknown) (unknown) Patient presents to (unit s (unknown) date) establish care, and unknown) discuss Patient's polycystic kidney (unknown) (no (unknown) (unknown) Patient was (units (un known) date) adapted, but unknown) recently nothing that she has done in the past is (unknown) (no (unknown) (unknown) Patient: (units (unkno wn) date) [place] unknown) MR#: [id number] (unknown) (no (unknown) (unknown) Penicillins Allergy (unit s (unknown) date) (Severe, Verified unknown) 03/07/21 11:59) (unknown) (no (unknown) (unknown) Polycystic kidney (units (unknown) date) disease unknown) (unknown) (no (unknown) (unknown) Position Sitting (units (unknown) date) unknown) (unknown) (no (unknown) (unknown) Psych: grossly (units (unknown) date) normal and well unknown) kempt, mental status grossly normal, speech and (unknown) (no (unknown) (unknown) Pulse 64 (units (unkno wn) date) unknown) (unknown) (no (unknown) (unknown) Pulse Oximetry (%) (units (unknown) date) 98 unknown) (unknown) (no (unknown) (unknown) Pulse Source (units (u nknown) date) Monitor unknown) (unknown) (no (unknown) (unknown) Reaction 01/18/21 (units (unknown) date) [History Confirmed unknown) 02/12/22] (unknown) (no (unknown) (unknown) Reason For Visit (units (unknown) date) unknown) (unknown) (no (unknown) (unknown) Referral (units (unkno wn) date) Gastroenterology unknown) R13.10 - Dysphagia, unspecified (unknown) (no (unknown) (unknown) Referrals (units (unkn own) date) unknown) (unknown) (no (unknown) (unknown) Resp: normal (units (u nknown) date) respiratory effort unknown) and able to speak in complete sentences (unknown) (no (unknown) (unknown) Sclera: sclerae (units (unknown) date) normal unknown) (unknown) (no (unknown) (unknown) Shortness Of Breath (unit s (unknown) date) Or Wheezing 01/18/21 unknown) [History Confirmed 02/12/22] (unknown) (no (unknown) (unknown) Signed By: (units (unk nown) date) unknown) (unknown) (no (unknown) (unknown) Skin: no rashes or (units (unknown) date) lesions noted unknown) (unknown) (no (unknown) (unknown) Smoking Status: (units (unknown) date) Never smoker unknown) (unknown) (no (unknown) (unknown) Social History (units (unknown) date) unknown) (unknown) (no (unknown) (unknown) Status post (units (un known) date) appendectomy unknown) (unknown) (no (unknown) (unknown) Status post (units (un known) date) cholecystectomy unknown) (unknown) (no (unknown) (unknown) Surgical History (units (unknown) date) (Reviewed 02/12/22 @ unknown) 11:20 by Austyn Perry DO) (unknown) (no (unknown) (unknown) Temp 97.9 F (units (un known) date) unknown) (unknown) (no (unknown) (unknown) Temp Source (units (un known) date) Temporal Artery Scan unknown) (unknown) (no (unknown) (unknown) The patient denies (units (unknown) date) fever, unexplained unknown) weight loss, loss of sense of smell, (unknown) (no (unknown) (unknown) This note may have (units (unknown) date) been all or unknown) partially generated using voice recognition (unknown) (no (unknown) (unknown) Tobacco + Substance (unit s (unknown) date) Use unknown) (unknown) (no (unknown) (unknown) Tobacco Status (units (unknown) date) unknown) (unknown) (no (unknown) (unknown) 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: (units (unknown) date) Kidney disease unknown) (unknown) (no (unknown) (unknown) Vitals (units (unkno wn) date) unknown) (unknown) (no (unknown) (unknown) Weight 130 lb 2 oz (units (unknown) date) unknown) (unknown) (no (unknown) (unknown) acetaminophen 500 (units (unknown) date) mg tablet unknown) (Acetaminophen Extra Strength) 1,000 mg PO Q6H PRN (unknown) (no (unknown) (unknown) albuterol sulfate (units (unknown) date) 90 mcg/actuation unknown) aerosol inhaler 2 puff inhalation Q4HR PRN (unknown) (no (unknown) (unknown) alcohol intake: (units (unknown) date) never unknown) (unknown) (no (unknown) (unknown) aspirin Allergy (units (unknown) date) (Severe, Verified unknown) 03/07/21 12:01) (unknown) (no (unknown) (unknown) been relieved for a (unit s (unknown) date) long time after unknown) having surgery for chiari malformation. (unknown) (no (unknown) (unknown) bone. She is being (units (unknown) date) extremely careful to unknown) overchew and take small bites but (unknown) (no (unknown) (unknown) breast cancer and (units (unknown) date) finding lumps, unknown) (unknown) (no (unknown) (unknown) clavulanic acid (units (unknown) date) Allergy (Severe, unknown) Verified 03/07/21 12:00) (unknown) (no (unknown) (unknown) cough, shortness of (unit s (unknown) date) breath, chest pain. unknown) She does have abdominal pain, nausea, (unknown) (no (unknown) (unknown) disease. Patient (units (unknown) date) also have concerns unknown) with food getting stuck in her throat, (unknown) (no (unknown) (unknown) epinephrine 0.3 (units (unknown) date) mg/0.3 mL injection, unknown) auto-injector 0.3 mg IM PRN PRN Allergic (unknown) (no (unknown) (unknown) fentanyl Allergy (units (unknown) date) (Severe, Verified unknown) 03/07/21 12:05) (unknown) (no (unknown) (unknown) fluticasone [From (units (unknown) date) Flonase] Adverse unknown) Reaction (Intermediate, Verified 03/07/21 (unknown) (no (unknown) (unknown) has severe headache (unit s (unknown) date) and dizziness every unknown) day intermittently for months that had (unknown) (no (unknown) (unknown) have occurred. If (units (unknown) date) there are any unknown) questions, please contact the Medical Records (unknown) (no (unknown) (unknown) household members: (units (unknown) date) spouse and children unknown) (unknown) (no (unknown) (unknown) hydrocodone Adverse (unit s (unknown) date) Reaction (Severe, unknown) Verified 03/07/21 12:05) (unknown) (no (unknown) (unknown) it dislodged, with (units (unknown) date) difficult episodes unknown) twice a week. (unknown) (no (unknown) (unknown) loratadine 10 mg (units (unknown) date) tablet (Claritin) 10 unknown) mg PO DAILY 01/18/21 [History Confirmed (unknown) (no (unknown) (unknown) malignant neoplasm (units (unknown) date) of breast unknown) (unknown) (no (unknown) (unknown) may occur. (units (unk nown) date) Occasional unknown) wrong-word or 'sound-alike' substitutions may have (unknown) (no (unknown) (unknown) menorrhagia, (units (u nknown) date) partial bowel unknown) obstruction, and anxiety presents to establish care (unknown) (no (unknown) (unknown) methylprednisolone (units (unknown) date) Allergy (Severe, unknown) Verified 03/07/21 12:05) (unknown) (no (unknown) (unknown) morphine Allergy (units (unknown) date) (Severe, Verified unknown) 03/07/21 12:05) (unknown) (no (unknown) (unknown) movement normal, (units (unknown) date) congruent mood unknown) (unknown) (no (unknown) (unknown) occurred due to the (unit s (unknown) date) inherent limitations unknown) of voice recognition software. Please (unknown) (no (unknown) (unknown) omeprazole 20 mg (units (unknown) date) tablet,delayed unknown) release 20 mg PO BID 03/07/21 [History Confirmed (unknown) (no (unknown) (unknown) ondansetron 4 mg (units (unknown) date) disintegrating unknown) tablet 4 mg PO Q8-12H PRN nausea and vomiting (unknown) (no (unknown) (unknown) patient is missing (units (unknown) date) several upper molars unknown) and is unable to chew food fully. (unknown) (no (unknown) (unknown) read the note (units ( unknown) date) carefully and unknown) recognize, using context, where these substitutions (unknown) (no (unknown) (unknown) really working for (units (unknown) date) her. Patient is also unknown) having severe headaches recently. (unknown) (no (unknown) (unknown) software. 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, unknown) cervical cancer, s/p hysterectomy for severe (unknown) (no (unknown) (unknown) trouble swallowing (units (unknown) date) unknown) (unknown) (no (unknown) (unknown) vomiting, diarrhea, (unit s (unknown) date) constipation, unknown) numbness and tingling in her right arm. She (unknown) (no (unknown) (unknown) with concern today (units (unknown) date) for food getting unknown) stuck in her esophagus below the collar Result panel 8 (unknown) (no (unknown) (unknown) (no value) (units (unk nown) date) unknown) (unknown) (no (unknown) (unknown) Orders: (units (unkno wn) date) unknown) (unknown) (no (unknown) (unknown) Qualifiers: (units (un known) date) unknown) (unknown) (no (unknown) (unknown) Status: Acute (units ( unknown) date) unknown) (unknown) (no (unknown) (unknown) (no value) (units (unk nown) date) unknown) (unknown) (no (unknown) (unknown) 02/12/22 (units (unkno wn) date) unknown) (unknown) (no (unknown) (unknown) 10:49 (units (unkno wn) date) unknown) (unknown) (no (unknown) (unknown) Agitated (units (unkno wn) date) unknown) (unknown) (no (unknown) (unknown) [place] [id number] (unit s (unknown) date) unknown) (unknown) (no (unknown) (unknown) Anaphylaxis (units (un known) date) unknown) (unknown) (no (unknown) (unknown) Diarrhea type: (units (unknown) date) unspecified type unknown) Qualified Code(s): R19.7 - Diarrhea, (unknown) (no (unknown) (unknown) Draft (units (unkno wn) date) unknown) (unknown) (no (unknown) (unknown) Family Practice (units (unknown) date) Office Visit unknown) (unknown) (no (unknown) (unknown) [facility]) (unknown) (no (unknown) (unknown) Hives (units (unkno wn) date) unknown) (unknown) (no (unknown) (unknown) Vomiting (units (unkno wn) date) unknown) (unknown) (no (unknown) (unknown) (no value) (units (unk nown) date) unknown) (unknown) (no (unknown) (unknown) 02/12/22] (units (unkn own) date) unknown) (unknown) (no (unknown) (unknown) #14 tabs 05/09/21 (units (unknown) date) [Rx Confirmed unknown) 02/12/22] (unknown) (no (unknown) (unknown) (1) Food sticks on (units (unknown) date) swallowing: unknown) (unknown) (no (unknown) (unknown) (2) 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: unknown) (unknown) (no (unknown) (unknown) (3) Diarrhea: (units ( unknown) date) unknown) (unknown) (no (unknown) (unknown) (4) Polycystic (units (unknown) date) kidney disease: unknown) (unknown) (no (unknown) (unknown) (5) Headache: (units ( unknown) date) unknown) (unknown) (no (unknown) (unknown) (6) Fatigue: (units (u nknown) date) unknown) (unknown) (no (unknown) (unknown) [id number] (units (unkno wn) date) unknown) (unknown) (no (unknown) (unknown) 02/12/22 (units (unkno wn) date) unknown) (unknown) (no (unknown) (unknown) 02/12/22] (units (unkn own) date) unknown) (unknown) (no (unknown) (unknown) 12:05) (units (unkno wn) date) unknown) (unknown) (no (unknown) (unknown) 36-year-old woman (units (unknown) date) with history of unknown) ovarian cysts, polycystic kidney disease, s/p (unknown) (no (unknown) (unknown) Add'l Complaint: (units (unknown) date) unknown) (unknown) (no (unknown) (unknown) Age/Sex: 36 / F (units (unknown) date) Date of Service: unknown) (unknown) (no (unknown) (unknown) Allergies (units (unkn own) date) unknown) (unknown) (no (unknown) (unknown) Anxiety (units (unkno wn) date) unknown) (unknown) (no (unknown) (unknown) Assessment + Plan (units (unknown) date) unknown) (unknown) (no (unknown) (unknown) Attending Dr: Austyn (unit s (unknown) date) Orlando Barahona unknown) (unknown) (no (unknown) (unknown) BMI 27.1 (units (unkno wn) date) unknown) (unknown) (no (unknown) (unknown) BP 100/62 (units (unkn own) date) unknown) (unknown) (no (unknown) (unknown) Blood Pressure (units (unknown) date) Location Lt brachial unknown) (unknown) (no (unknown) (unknown) 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 unknown) (unknown) (no (unknown) (unknown) Chief Complaint (units (unknown) date) unknown) (unknown) (no (unknown) (unknown) Chief Complaint: (units (unknown) date) Establish care unknown) (unknown) (no (unknown) (unknown) Complete Blood (units (unknown) date) Count AUTO DIFF 1 unknown) Day G93.5 - Compression of brain, Q61.3 - (unknown) (no (unknown) (unknown) Comprehensive (units ( unknown) date) Metabolic Panel 1 unknown) Day G93.5 - Compression of brain, Q61.3 - (unknown) (no (unknown) (unknown) Conjunctivae: (units ( unknown) date) conjunctivae normal unknown) (unknown) (no (unknown) (unknown) : 1985 (units (unknown) date) Acct:[id number] unknown) (unknown) (no (unknown) (unknown) Dept at (units (unkno wn) date) . unknown) (unknown) (no (unknown) (unknown) Details: (units (unkno wn) date) unknown) (unknown) (no (unknown) (unknown) Documented By: (units (unknown) date) Austyn Perry D.O. unknown) 02/12/22 0725 (unknown) (no (unknown) (unknown) Dysphagia, (units (unk nown) date) unspecified, R19.7 - unknown) Diarrhea, unspecified, R51.9 - Headache, (unknown) (no (unknown) (unknown) Exam (units (unkno wn) date) unknown) (unknown) (no (unknown) (unknown) Exam Narrative (units (unknown) date) unknown) (unknown) (no (unknown) (unknown) Exam Narrative: (units (unknown) date) unknown) (unknown) (no (unknown) (unknown) Eyelids: eyelids (units (unknown) date) normal unknown) (unknown) (no (unknown) (unknown) Eyes (units (unkno wn) date) unknown) (unknown) (no (unknown) (unknown) Fatigue (units (unkno wn) date) unknown) (unknown) (no (unknown) (unknown) Food sticks on (units (unknown) date) swallowing unknown) (unknown) (no (unknown) (unknown) Free T3, (units (unkno wn) date) Triiodothyronine unknown) Free 1 Day G93.5 - Compression of brain, Q61.3 - (unknown) (no (unknown) (unknown) Free T4, Direct (units (unknown) date) Thyroxine 1 Day unknown) G93.5 - Compression of brain, Q61.3 - Polycystic (unknown) (no (unknown) (unknown) General: appearance (unit s (unknown) date) normal, both eyes unknown) and all related structures (unknown) (no (unknown) (unknown) General: (units (unkno wn) date) cooperative, healthy unknown) appearing and comfortable (unknown) (no (unknown) (unknown) HENMT (units (unkno wn) date) unknown) (unknown) (no (unknown) (unknown) HPI (units (unkno wn) date) unknown) (unknown) (no (unknown) (unknown) Head: normal to (units (unknown) date) inspection unknown) (unknown) (no (unknown) (unknown) Headache (units (unkno wn) date) unknown) (unknown) (no (unknown) (unknown) Headache, (units (unkn own) date) unspecified, R53.83 unknown) - Other fatigue (unknown) (no (unknown) (unknown) Health maintenance: (units (unknown) date) no further paps, has unknown) had one negative mammogram bc of fhx of (unknown) (no (unknown) (unknown) Height 4 ft 10 in (units (unknown) date) unknown) (unknown) (no (unknown) (unknown) History of peptic (units (unknown) date) ulcer disease unknown) (unknown) (no (unknown) (unknown) Intake (units (unkno wn) date) unknown) (unknown) (no (unknown) (unknown) Intake Note: (units (u nknown) date) unknown) (unknown) (no (unknown) (unknown) Intake performed (units (unknown) date) by: Leyda Ruff unknown) (unknown) (no (unknown) (unknown) Intake- Clincial (units (unknown) date) Staff unknown) (unknown) (no (unknown) (unknown) Lipid Panel 1 Day (units (unknown) date) G93.5 - Compression unknown) of brain, Q61.3 - Polycystic kidney, (unknown) (no (unknown) (unknown) Loc: [facility] (units (unkno wn) date) unknown) (unknown) (no (unknown) (unknown) MM screening mammo (units (unknown) date) BI 1 Week Z12.31 - unknown) Encounter for screening mammogram for (unknown) (no (unknown) (unknown) Medical History (units (unknown) date) (Updated 02/12/22 @ unknown) 11:30 by Austyn Perry DO) (unknown) (no (unknown) (unknown) Medications (units (un known) date) unknown) (unknown) (no (unknown) (unknown) Neck: normal visual (unit s (unknown) date) inspection unknown) (unknown) (no (unknown) (unknown) Neuro: alert and (units (unknown) date) oriented x3, normal unknown) cognition, speech normal, normal gait (unknown) (no (unknown) (unknown) Nose: external nose (unit s (unknown) date) normal unknown) (unknown) (no (unknown) (unknown) Orders (units (unkno wn) date) unknown) (unknown) (no (unknown) (unknown) Orientation: alert (units (unknown) date) and oriented x3 unknown) (unknown) (no (unknown) (unknown) Oxygen Delivery (units (unknown) date) Method room air unknown) (unknown) (no (unknown) (unknown) PFSH (units (unkno wn) date) unknown) (unknown) (no (unknown) (unknown) Pain (Scale Score (units (unknown) date) 4-6) 01/18/21 unknown) [History Confirmed 02/12/22] (unknown) (no (unknown) (unknown) Patient presents to (unit s (unknown) date) establish care, and unknown) discuss Patient's polycystic kidney (unknown) (no (unknown) (unknown) Patient was (units (un known) date) adapted, but unknown) recently nothing that she has done in the past is (unknown) (no (unknown) (unknown) Patient: (units (unkno wn) date) [facility] unknown) MR#: [id number] (unknown) (no (unknown) (unknown) Penicillins Allergy (unit s (unknown) date) (Severe, Verified unknown) 03/07/21 11:59) (unknown) (no (unknown) (unknown) Polycystic kidney (units (unknown) date) disease unknown) (unknown) (no (unknown) (unknown) Polycystic kidney, (units (unknown) date) unspecified, R11.2 - unknown) Nausea with vomiting, unspecified, (unknown) (no (unknown) (unknown) Position Sitting (units (unknown) date) unknown) (unknown) (no (unknown) (unknown) Psych: grossly (units (unknown) date) normal and well unknown) kempt, mental status grossly normal, speech and (unknown) (no (unknown) (unknown) Pulse 64 (units (unkno wn) date) unknown) (unknown) (no (unknown) (unknown) Pulse Oximetry (%) (units (unknown) date) 98 unknown) (unknown) (no (unknown) (unknown) Pulse Source (units (u nknown) date) Monitor unknown) (unknown) (no (unknown) (unknown) R13.10 - Dysphagia, (unit s (unknown) date) unspecified, R19.7 - unknown) Diarrhea, unspecified, R51.9 - (unknown) (no (unknown) (unknown) R13.10 - Dysphagia, (unit s (unknown) date) unspecified, R19.7 - unknown) Diarrhea, unspecified, R51.9 - [place] (unknown) (no (unknown) (unknown) R53.83 - Other (units (unknown) date) fatigue unknown) (unknown) (no (unknown) (unknown) Reaction 01/18/21 (units (unknown) date) [History Confirmed unknown) 02/12/22] (unknown) (no (unknown) (unknown) Reason For Visit (units (unknown) date) unknown) (unknown) (no (unknown) (unknown) Referral (units (unkno wn) date) Gastroenterology unknown) R13.10 - Dysphagia, unspecified (unknown) (no (unknown) (unknown) Referral (units (unkno wn) date) Neurosurgery G93.5 - unknown) Compression of brain (unknown) (no (unknown) (unknown) Referrals (units (unkn own) date) unknown) (unknown) (no (unknown) (unknown) Resp: normal (units (u nknown) date) respiratory effort unknown) and able to speak in complete sentences (unknown) (no (unknown) (unknown) Sclera: sclerae (units (unknown) date) normal unknown) (unknown) (no (unknown) (unknown) Shortness Of Breath (unit s (unknown) date) Or Wheezing 01/18/21 unknown) [History Confirmed 02/12/22] (unknown) (no (unknown) (unknown) Signed By: (units (unk nown) date) unknown) (unknown) (no (unknown) (unknown) Skin: no rashes or (units (unknown) date) lesions noted unknown) (unknown) (no (unknown) (unknown) Smoking Status: (units (unknown) date) Never smoker unknown) (unknown) (no (unknown) (unknown) Social History (units (unknown) date) unknown) (unknown) (no (unknown) (unknown) Status post (units (un known) date) appendectomy unknown) (unknown) (no (unknown) (unknown) Status post (units (un known) date) cholecystectomy unknown) (unknown) (no (unknown) (unknown) Surgical History (units (unknown) date) (Reviewed 02/12/22 @ unknown) 11:20 by Austyn Perry DO) (unknown) (no (unknown) (unknown) Temp 97.9 F (units (un known) date) unknown) (unknown) (no (unknown) (unknown) Temp Source (units (un known) date) Temporal Artery Scan unknown) (unknown) (no (unknown) (unknown) The patient denies (units (unknown) date) fever, unexplained unknown) weight loss, loss of sense of smell, (unknown) (no (unknown) (unknown) This note may have (units (unknown) date) been all or unknown) partially generated using voice recognition (unknown) (no (unknown) (unknown) Thyroid Stimulating (unit s (unknown) date) Hormone 1 Day G93.5 unknown) - Compression of brain, Q61.3 - (unknown) (no (unknown) (unknown) Tobacco + Substance (unit s (unknown) date) Use unknown) (unknown) (no (unknown) (unknown) Tobacco Status (units (unknown) date) unknown) (unknown) (no (unknown) (unknown) 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: (units (unknown) date) Kidney disease unknown) (unknown) (no (unknown) (unknown) Vitals (units (unkno wn) date) unknown) (unknown) (no (unknown) (unknown) Vitamin D 25 Hydroxy (unit s (unknown) date) (D3) 1 Day G93.5 - unknown) Compression of brain, Q61.3 - Polycystic (unknown) (no (unknown) (unknown) Weight 130 lb 2 oz (units (unknown) date) unknown) (unknown) (no (unknown) (unknown) acetaminophen 500 (units (unknown) date) mg tablet unknown) (Acetaminophen Extra Strength) 1,000 mg PO Q6H PRN (unknown) (no (unknown) (unknown) albuterol sulfate (units (unknown) date) 90 mcg/actuation unknown) aerosol inhaler 2 puff inhalation Q4HR PRN (unknown) (no (unknown) (unknown) alcohol intake: (units (unknown) date) never unknown) (unknown) (no (unknown) (unknown) aspirin Allergy (units (unknown) date) (Severe, Verified unknown) 03/07/21 12:01) (unknown) (no (unknown) (unknown) been relieved for a (unit s (unknown) date) long time after unknown) having surgery for chiari malformation. (unknown) (no (unknown) (unknown) bone. She is being (units (unknown) date) extremely careful to unknown) overchew and take small bites but (unknown) (no (unknown) (unknown) breast cancer and (units (unknown) date) finding lumps, unknown) (unknown) (no (unknown) (unknown) daniel, unspecified, (units (unknown) date) R53.83 - Other unknown) fatigue (unknown) (no (unknown) (unknown) clavulanic acid (units (unknown) date) Allergy (Severe, unknown) Verified 03/07/21 12:00) (unknown) (no (unknown) (unknown) cough, shortness of (unit s (unknown) date) breath, chest pain. unknown) She does have abdominal pain, nausea, (unknown) (no (unknown) (unknown) disease. Patient (units (unknown) date) also have concerns unknown) with food getting stuck in her throat, (unknown) (no (unknown) (unknown) epinephrine 0.3 (units (unknown) date) mg/0.3 mL injection, unknown) auto-injector 0.3 mg IM PRN PRN Allergic (unknown) (no (unknown) (unknown) fentanyl Allergy (units (unknown) date) (Severe, Verified unknown) 03/07/21 12:05) (unknown) (no (unknown) (unknown) fluticasone [From (units (unknown) date) Flonase] Adverse unknown) Reaction (Intermediate, Verified 03/07/21 (unknown) (no (unknown) (unknown) has severe headache (unit s (unknown) date) and dizziness every unknown) day intermittently for months that had (unknown) (no (unknown) (unknown) have occurred. If (units (unknown) date) there are any unknown) questions, please contact the Medical Records (unknown) (no (unknown) (unknown) household members: (units (unknown) date) spouse and children unknown) (unknown) (no (unknown) (unknown) hydrocodone Adverse (unit s (unknown) date) Reaction (Severe, unknown) Verified 03/07/21 12:05) (unknown) (no (unknown) (unknown) it dislodged, with (units (unknown) date) difficult episodes unknown) twice a week. (unknown) (no (unknown) (unknown) kidney, (units (unkno wn) date) unspecified, R11.2 - unknown) Nausea with vomiting, unspecified, R13.10 - (unknown) (no (unknown) (unknown) loratadine 10 mg (units (unknown) date) tablet (Claritin) 10 unknown) mg PO DAILY 01/18/21 [History Confirmed (unknown) (no (unknown) (unknown) malignant neoplasm (units (unknown) date) of breast unknown) (unknown) (no (unknown) (unknown) may occur. (units (unk nown) date) Occasional unknown) wrong-word or 'sound-alike' substitutions may have (unknown) (no (unknown) (unknown) menorrhagia, (units (u nknown) date) partial bowel unknown) obstruction, and anxiety presents to establish care (unknown) (no (unknown) (unknown) methylprednisolone (units (unknown) date) Allergy (Severe, unknown) Verified 03/07/21 12:05) (unknown) (no (unknown) (unknown) morphine Allergy (units (unknown) date) (Severe, Verified unknown) 03/07/21 12:05) (unknown) (no (unknown) (unknown) movement normal, (units (unknown) date) congruent mood unknown) (unknown) (no (unknown) (unknown) occurred due to the (unit s (unknown) date) inherent limitations unknown) of voice recognition software. Please (unknown) (no (unknown) (unknown) omeprazole 20 mg (units (unknown) date) tablet,delayed unknown) release 20 mg PO BID 03/07/21 [History Confirmed (unknown) (no (unknown) (unknown) ondansetron 4 mg (units (unknown) date) disintegrating unknown) tablet 4 mg PO Q8-12H PRN nausea and vomiting (unknown) (no (unknown) (unknown) patient is missing (units (unknown) date) several upper molars unknown) and is unable to chew food fully. (unknown) (no (unknown) (unknown) read the note (units ( unknown) date) carefully and unknown) recognize, using context, where these substitutions (unknown) (no (unknown) (unknown) really working for (units (unknown) date) her. Patient is also unknown) having severe headaches recently. (unknown) (no (unknown) (unknown) software. 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, unknown) cervical cancer, s/p hysterectomy for severe (unknown) (no (unknown) (unknown) trouble swallowing (units (unknown) date) unknown) (unknown) (no (unknown) (unknown) unspecified (units (un known) date) unknown) (unknown) (no (unknown) (unknown) unspecified, R11.2 (units (unknown) date) - Nausea with unknown) vomiting, unspecified, R13.10 - Dysphagia, (unknown) (no (unknown) (unknown) unspecified, R19.7 (units (unknown) date) - Diarrhea, unknown) unspecified, R51.9 - Headache, unspecified, (unknown) (no (unknown) (unknown) unspecified, R53.83 (unit s (unknown) date) - Other fatigue unknown) (unknown) (no (unknown) (unknown) vomiting, diarrhea, (unit s (unknown) date) constipation, unknown) numbness and tingling in her right arm. She (unknown) (no (unknown) (unknown) with concern today (units (unknown) date) for food getting unknown) stuck in her esophagus below the collar Result panel 9 (unknown) (no (unknown) (unknown) (no value) (units (unk nown) date) unknown) (unknown) (no (unknown) (unknown) Orders: (units (unkno wn) date) unknown) (unknown) (no (unknown) (unknown) Qualifiers: (units (un known) date) unknown) (unknown) (no (unknown) (unknown) Status: Acute (units ( unknown) date) unknown) (unknown) (no (unknown) (unknown) (no value) (units (unk nown) date) unknown) (unknown) (no (unknown) (unknown) 02/12/22 (units (unkno wn) date) unknown) (unknown) (no (unknown) (unknown) 02/12/22 1322 (units ( unknown) date) unknown) (unknown) (no (unknown) (unknown) 10:49 (units (unkno wn) date) unknown) (unknown) (no (unknown) (unknown) Agitated (units (unkno wn) date) unknown) (unknown) (no (unknown) (unknown) [place] [id number] (unit s (unknown) date) unknown) (unknown) (no (unknown) (unknown) Anaphylaxis (units (un known) date) unknown) (unknown) (no (unknown) (unknown) Diarrhea type: (units (unknown) date) unspecified type unknown) Qualified Code(s): R19.7 - Diarrhea, (unknown) (no (unknown) (unknown) Family Practice (units (unknown) date) Office Visit unknown) (unknown) (no (unknown) (unknown) Fatigue type: (units ( unknown) date) unspecified unknown) Qualified Code(s): R53.83 - Other fatigue (unknown) (no (unknown) (unknown) [facility] unknown) (unknown) (no (unknown) (unknown) Headache type: (units (unknown) date) other headache unknown) syndrome Qualified Code(s): G44.89 - (unknown) (no (unknown) (unknown) Hives (units (unkno wn) date) unknown) (unknown) (no (unknown) (unknown) Signed (units (unkno wn) date) unknown) (unknown) (no (unknown) (unknown) Vomiting (units (unkno wn) date) unknown) (unknown) (no (unknown) (unknown) (no value) (units (unk nown) date) unknown) (unknown) (no (unknown) (unknown) 02/12/22] (units (unkn own) date) unknown) (unknown) (no (unknown) (unknown) #14 tabs 05/09/21 (units (unknown) date) [Rx Confirmed unknown) 02/12/22] (unknown) (no (unknown) (unknown) (1) Establishing (units (unknown) date) care with new unknown) doctor, encounter for: (unknown) (no (unknown) (unknown) (2) Food sticks on (units (unknown) date) swallowing: unknown) (unknown) (no (unknown) (unknown) (3) 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: unknown) (unknown) (no (unknown) (unknown) (4) Diarrhea: (units ( unknown) date) unknown) (unknown) (no (unknown) (unknown) (5) Polycystic (units (unknown) date) kidney disease: unknown) (unknown) (no (unknown) (unknown) (6) Headache: (units ( unknown) date) unknown) (unknown) (no (unknown) (unknown) (7) Fatigue: (units (u nknown) date) unknown) (unknown) (no (unknown) (unknown) [id number] (units (unkno wn) date) unknown) (unknown) (no (unknown) (unknown) 02/12/22 (units (unkno wn) date) unknown) (unknown) (no (unknown) (unknown) 02/12/22] (units (unkn own) date) unknown) (unknown) (no (unknown) (unknown) 12:05) (units (unkno wn) date) unknown) (unknown) (no (unknown) (unknown) 36-year-old woman (units (unknown) date) with history of unknown) ovarian cysts, polycystic kidney disease, s/p (unknown) (no (unknown) (unknown) Add'l Complaint: (units (unknown) date) unknown) (unknown) (no (unknown) (unknown) Age/Sex: 36 / F (units (unknown) date) Date of Service: unknown) (unknown) (no (unknown) (unknown) Allergies (units (unkn own) date) unknown) (unknown) (no (unknown) (unknown) Anxiety (units (unkno wn) date) unknown) (unknown) (no (unknown) (unknown) Assessment + Plan (units (unknown) date) unknown) (unknown) (no (unknown) (unknown) Attending Dr: Austyn (unit s (unknown) date) Orlando Barahona unknown) (unknown) (no (unknown) (unknown) BMI 27.1 (units (unkn own) date) unknown) (unknown) (no (unknown) (unknown) BP 100/62 (units (unkn own) date) unknown) (unknown) (no (unknown) (unknown) Blood Pressure (units (unknown) date) Location Lt brachial unknown) (unknown) (no (unknown) (unknown) 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 unknown) (unknown) (no (unknown) (unknown) Chief Complaint (units (unknown) date) unknown) (unknown) (no (unknown) (unknown) Chief Complaint: (units (unknown) date) Establish care unknown) (unknown) (no (unknown) (unknown) Complete Blood (units (unknown) date) Count AUTO DIFF 1 unknown) Day G93.5 - Compression of brain, Q61.3 - (unknown) (no (unknown) (unknown) Comprehensive (units ( unknown) date) Metabolic Panel 1 unknown) Day G93.5 - Compression of brain, Q61.3 - (unknown) (no (unknown) (unknown) Conjunctivae: (units ( unknown) date) conjunctivae normal unknown) (unknown) (no (unknown) (unknown) : 1985 (units (unknown) date) Acct:[id number] unknown) (unknown) (no (unknown) (unknown) Dept at (units (unkno wn) date) . unknown) (unknown) (no (unknown) (unknown) Details: (units (unkno wn) date) unknown) (unknown) (no (unknown) (unknown) Documented By: (units (unknown) date) Austyn Perry D.O. unknown) 02/12/22 0725 (unknown) (no (unknown) (unknown) Dysphagia, (units (unk nown) date) unspecified, R19.7 - unknown) Diarrhea, unspecified, R51.9 - Headache, (unknown) (no (unknown) (unknown) Exam (units (unkno wn) date) unknown) (unknown) (no (unknown) (unknown) Exam Narrative (units (unknown) date) unknown) (unknown) (no (unknown) (unknown) Exam Narrative: (units (unknown) date) unknown) (unknown) (no (unknown) (unknown) Eyelids: eyelids (units (unknown) date) normal unknown) (unknown) (no (unknown) (unknown) Eyes (units (unkno wn) date) unknown) (unknown) (no (unknown) (unknown) Fatigue (units (unkno wn) date) unknown) (unknown) (no (unknown) (unknown) Food sticks on (units (unknown) date) swallowing unknown) (unknown) (no (unknown) (unknown) Free T3, (units (unkno wn) date) Triiodothyronine unknown) Free 1 Day G93.5 - Compression of brain, Q61.3 - (unknown) (no (unknown) (unknown) Free T4, Direct (units (unknown) date) Thyroxine 1 Day unknown) G93.5 - Compression of brain, Q61.3 - Polycystic (unknown) (no (unknown) (unknown) General: appearance (unit s (unknown) date) normal, both eyes unknown) and all related structures (unknown) (no (unknown) (unknown) General: (units (unkno wn) date) cooperative, healthy unknown) appearing and comfortable (unknown) (no (unknown) (unknown) HENMT (units (unkno wn) date) unknown) (unknown) (no (unknown) (unknown) HPI (units (unkno wn) date) unknown) (unknown) (no (unknown) (unknown) Head: normal to (units (unknown) date) inspection unknown) (unknown) (no (unknown) (unknown) Headache (units (unkno wn) date) unknown) (unknown) (no (unknown) (unknown) Headache, (units (unkn own) date) unspecified, R53.83 unknown) - Other fatigue (unknown) (no (unknown) (unknown) Health maintenance: (units (unknown) date) no further paps, has unknown) had one negative mammogram bc of fhx of (unknown) (no (unknown) (unknown) Height 4 ft 10 in (units (unknown) date) unknown) (unknown) (no (unknown) (unknown) History of peptic (units (unknown) date) ulcer disease unknown) (unknown) (no (unknown) (unknown) Intake (units (unkno wn) date) unknown) (unknown) (no (unknown) (unknown) Intake Note: (units (u nknown) date) unknown) (unknown) (no (unknown) (unknown) Intake performed (units (unknown) date) by: Leyda Ruff unknown) (unknown) (no (unknown) (unknown) Intake- Clincial (units (unknown) date) Staff unknown) (unknown) (no (unknown) (unknown) Lipid Panel 1 Day (units (unknown) date) G93.5 - Compression unknown) of brain, Q61.3 - Polycystic kidney, (unknown) (no (unknown) (unknown) Loc: [facility] (units (unkno wn) date) unknown) (unknown) (no (unknown) (unknown) MM screening mammo (units (unknown) date) BI 1 Week Z12.31 - unknown) Encounter for screening mammogram for (unknown) (no (unknown) (unknown) Medical History (units (unknown) date) (Updated 02/12/22 @ unknown) 13:19 by Austyn Perry DO) (unknown) (no (unknown) (unknown) Medications (units (un known) date) unknown) (unknown) (no (unknown) (unknown) Neck: normal visual (unit s (unknown) date) inspection unknown) (unknown) (no (unknown) (unknown) Neuro: alert and (units (unknown) date) oriented x3, normal unknown) cognition, speech normal, normal gait (unknown) (no (unknown) (unknown) Nose: external nose (unit s (unknown) date) normal unknown) (unknown) (no (unknown) (unknown) Orders (units (unkno wn) date) unknown) (unknown) (no (unknown) (unknown) Orientation: alert (units (unknown) date) and oriented x3 unknown) (unknown) (no (unknown) (unknown) Other headache (units (unknown) date) syndrome unknown) (unknown) (no (unknown) (unknown) Oxygen Delivery (units (unknown) date) Method room air unknown) (unknown) (no (unknown) (unknown) PFSH (units (unkno wn) date) unknown) (unknown) (no (unknown) (unknown) Pain (Scale Score (units (unknown) date) 4-6) 01/18/21 unknown) [History Confirmed 02/12/22] (unknown) (no (unknown) (unknown) Patient presents to (unit s (unknown) date) establish care, and unknown) discuss Patient's polycystic kidney (unknown) (no (unknown) (unknown) Patient referred to (unit s (unknown) date) Gastroenterology for unknown) evaluation and treatment of her (unknown) (no (unknown) (unknown) Patient was (units (un known) date) adapted, but unknown) recently nothing that she has done in the past is (unknown) (no (unknown) (unknown) Patient: (units (unkno wn) date) [place]ales A unknown) MR#: [id number] (unknown) (no (unknown) (unknown) [place] Allergy (unit s (unknown) date) (Severe, Verified unknown) 03/07/21 11:59) (unknown) (no (unknown) (unknown) Plan (units (unkno wn) date) unknown) (unknown) (no (unknown) (unknown) Polycystic kidney (units (unknown) date) disease unknown) (unknown) (no (unknown) (unknown) Polycystic kidney, (units (unknown) date) unspecified, R11.2 - unknown) Nausea with vomiting, unspecified, (unknown) (no (unknown) (unknown) Position Sitting (units (unknown) date) unknown) (unknown) (no (unknown) (unknown) Psych: grossly (units (unknown) date) normal and well unknown) kempt, mental status grossly normal, speech and (unknown) (no (unknown) (unknown) Pulse 64 (units (unkno wn) date) unknown) (unknown) (no (unknown) (unknown) Pulse Oximetry (%) (units (unknown) date) 98 unknown) (unknown) (no (unknown) (unknown) Pulse Source (units (u nknown) date) Monitor unknown) (unknown) (no (unknown) (unknown) R13.10 - Dysphagia, (unit s (unknown) date) unspecified, R19.7 - unknown) Diarrhea, unspecified, R51.9 - (unknown) (no (unknown) (unknown) R13.10 - Dysphagia, (unit s (unknown) date) unspecified, R19.7 - unknown) Diarrhea, unspecified, R51.9 - Hea (unknown) (no (unknown) (unknown) R53.83 - Other (units (unknown) date) fatigue unknown) (unknown) (no (unknown) (unknown) Reaction 01/18/21 (units (unknown) date) [History Confirmed unknown) 02/12/22] (unknown) (no (unknown) (unknown) Reason For Visit (units (unknown) date) unknown) (unknown) (no (unknown) (unknown) Referral (units (unkno wn) date) Gastroenterology unknown) R13.10 - Dysphagia, unspecified (unknown) (no (unknown) (unknown) Referral (units (unkno wn) date) Neurosurgery G93.5 - unknown) Compression of brain (unknown) (no (unknown) (unknown) Referrals (units (unkn own) date) unknown) (unknown) (no (unknown) (unknown) Resp: normal (units (u nknown) date) respiratory effort unknown) and able to speak in complete sentences (unknown) (no (unknown) (unknown) Sclera: sclerae (units (unknown) date) normal unknown) (unknown) (no (unknown) (unknown) Shortness Of Breath (unit s (unknown) date) Or Wheezing 01/18/21 unknown) [History Confirmed 02/12/22] (unknown) (no (unknown) (unknown) Signed By: (units (unk nown) date) <Electronically unknown) signed by Austyn Perry D.O.> (unknown) (no (unknown) (unknown) Skin: no rashes or (units (unknown) date) lesions noted unknown) (unknown) (no (unknown) (unknown) Smoking Status: (units (unknown) date) Never smoker unknown) (unknown) (no (unknown) (unknown) Social History (units (unknown) date) unknown) (unknown) (no (unknown) (unknown) Status post (units (un known) date) appendectomy unknown) (unknown) (no (unknown) (unknown) Status post (units (un known) date) cholecystectomy unknown) (unknown) (no (unknown) (unknown) Surgical History (units (unknown) date) (Reviewed 02/12/22 @ unknown) 11:20 by Austyn Perry DO) (unknown) (no (unknown) (unknown) Temp 97.9 F (units (un known) date) unknown) (unknown) (no (unknown) (unknown) Temp Source (units (un known) date) Temporal Artery Scan unknown) (unknown) (no (unknown) (unknown) The patient denies (units (unknown) date) fever, unexplained unknown) weight loss, loss of sense of smell, (unknown) (no (unknown) (unknown) This note may have (units (unknown) date) been all or unknown) partially generated using voice recognition (unknown) (no (unknown) (unknown) Thyroid Stimulating (unit s (unknown) date) Hormone 1 Day G93.5 unknown) - Compression of brain, Q61.3 - (unknown) (no (unknown) (unknown) Tobacco + Substance (unit s (unknown) date) Use unknown) (unknown) (no (unknown) (unknown) Tobacco Status (units (unknown) date) unknown) (unknown) (no (unknown) (unknown) 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: (units (unknown) date) Kidney disease unknown) (unknown) (no (unknown) (unknown) Vitals (units (unkno wn) date) unknown) (unknown) (no (unknown) (unknown) Vitamin D 25 Hydroxy (unit s (unknown) date) (D3) 1 Day G93.5 - unknown) Compression of brain, Q61.3 - Polycystic (unknown) (no (unknown) (unknown) Weight 130 lb 2 oz (units (unknown) date) unknown) (unknown) (no (unknown) (unknown) acetaminophen 500 (units (unknown) date) mg tablet unknown) (Acetaminophen Extra Strength) 1,000 mg PO Q6H PRN (unknown) (no (unknown) (unknown) albuterol sulfate (units (unknown) date) 90 mcg/actuation unknown) aerosol inhaler 2 puff inhalation Q4HR PRN (unknown) (no (unknown) (unknown) alcohol intake: (units (unknown) date) never unknown) (unknown) (no (unknown) (unknown) and return of (units ( unknown) date) severe daily unknown) headaches. She is being extremely careful to (unknown) (no (unknown) (unknown) and she repeatedly (units (unknown) date) vomited to get it unknown) dislodged, with difficult episodes twice a (unknown) (no (unknown) (unknown) aspirin Allergy (units (unknown) date) (Severe, Verified unknown) 03/07/21 12:01) (unknown) (no (unknown) (unknown) been relieved for a (unit s (unknown) date) long time after unknown) having surgery for chiari malformation. (unknown) (no (unknown) (unknown) breast cancer and (units (unknown) date) finding lumps, unknown) (unknown) (no (unknown) (unknown) clavulanic acid (units (unknown) date) Allergy (Severe, unknown) Verified 03/07/21 12:00) (unknown) (no (unknown) (unknown) cough, shortness of (unit s (unknown) date) breath, chest pain. unknown) She does have abdominal pain, nausea, (unknown) (no (unknown) (unknown) dache, unspecified, (unit s (unknown) date) R53.83 - Other unknown) fatigue (unknown) (no (unknown) (unknown) disease. Patient (units (unknown) date) also have concerns unknown) with food getting stuck in her throat, (unknown) (no (unknown) (unknown) epinephrine 0.3 (units (unknown) date) mg/0.3 mL injection, unknown) auto-injector 0.3 mg IM PRN PRN Allergic (unknown) (no (unknown) (unknown) fentanyl Allergy (units (unknown) date) (Severe, Verified unknown) 03/07/21 12:05) (unknown) (no (unknown) (unknown) fluticasone [From (units (unknown) date) Flonase] Adverse unknown) Reaction (Intermediate, Verified 03/07/21 (unknown) (no (unknown) (unknown) future. (units (unkno wn) date) unknown) (unknown) (no (unknown) (unknown) has severe headache (unit s (unknown) date) and dizziness every unknown) day intermittently for months that had (unknown) (no (unknown) (unknown) have occurred. If (units (unknown) date) there are any unknown) questions, please contact the Medical Records (unknown) (no (unknown) (unknown) household members: (units (unknown) date) spouse and children unknown) (unknown) (no (unknown) (unknown) hydrocodone Adverse (unit s (unknown) date) Reaction (Severe, unknown) Verified 03/07/21 12:05) (unknown) (no (unknown) (unknown) kidney, (units (unkno wn) date) unspecified, R11.2 - unknown) Nausea with vomiting, unspecified, R13.10 - (unknown) (no (unknown) (unknown) labs ordered. (units ( unknown) date) Patient return for unknown) lab review and physical exam in the near (unknown) (no (unknown) (unknown) loratadine 10 mg (units (unknown) date) tablet (Claritin) 10 unknown) mg PO DAILY 01/18/21 [History Confirmed (unknown) (no (unknown) (unknown) malignant neoplasm (units (unknown) date) of breast unknown) (unknown) (no (unknown) (unknown) may occur. (units (unk nown) date) Occasional unknown) wrong-word or 'sound-alike' substitutions may have (unknown) (no (unknown) (unknown) menorrhagia, (units (u nknown) date) partial bowel unknown) obstruction, and anxiety presents to establish care (unknown) (no (unknown) (unknown) methylprednisolone (units (unknown) date) Allergy (Severe, unknown) Verified 03/07/21 12:05) (unknown) (no (unknown) (unknown) morphine Allergy (units (unknown) date) (Severe, Verified unknown) 03/07/21 12:05) (unknown) (no (unknown) (unknown) movement normal, (units (unknown) date) congruent mood unknown) (unknown) (no (unknown) (unknown) occurred due to the (unit s (unknown) date) inherent limitations unknown) of voice recognition software. Please (unknown) (no (unknown) (unknown) omeprazole 20 mg (units (unknown) date) tablet,delayed unknown) release 20 mg PO BID 03/07/21 [History Confirmed (unknown) (no (unknown) (unknown) ondansetron 4 mg (units (unknown) date) disintegrating unknown) tablet 4 mg PO Q8-12H PRN nausea and vomiting (unknown) (no (unknown) (unknown) overchew and take (units (unknown) date) small bites but unknown) sometimes food is stuck for as long as an hour (unknown) (no (unknown) (unknown) patient is missing (units (unknown) date) several upper molars unknown) and is unable to chew food fully. (unknown) (no (unknown) (unknown) read the note (units ( unknown) date) carefully and unknown) recognize, using context, where these substitutions (unknown) (no (unknown) (unknown) really working for (units (unknown) date) her. Patient is also unknown) having severe headaches recently. (unknown) (no (unknown) (unknown) return of severe (units (unknown) date) headaches and unknown) history of Chiari malformation. Mammogram and (unknown) (no (unknown) (unknown) software. 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 (unit s (unknown) date) Patient referred to unknown) Neurosurgery for treatment of her (unknown) (no (unknown) (unknown) trouble swallowing (units (unknown) date) unknown) (unknown) (no (unknown) (unknown) unspecified (units (un known) date) unknown) (unknown) (no (unknown) (unknown) unspecified, R11.2 (units (unknown) date) - Nausea with unknown) vomiting, unspecified, R13.10 - Dysphagia, (unknown) (no (unknown) (unknown) unspecified, R19.7 (units (unknown) date) - Diarrhea, unknown) unspecified, R51.9 - Headache, unspecified, (unknown) (no (unknown) (unknown) unspecified, R53.83 (unit s (unknown) date) - Other fatigue unknown) (unknown) (no (unknown) (unknown) vomiting, diarrhea, (unit s (unknown) date) constipation, unknown) numbness and tingling in her right arm. She (unknown) (no (unknown) (unknown) week. (units (unkno wn) date) unknown) (unknown) (no (unknown) (unknown) with concern today (units (unknown) date) for food getting unknown) stuck in her esophagus below the collar bone Social History date description facility +0000 Never smoked tobacco (finding) [facility] Vital Signs date measurement value units +0000 BMI BMI 27.1 kg/m2 +0000 BP_diastolic BP_diastolic 62 mmHg +0000 BP_systolic BP_systolic 100 mmHg +0000 heart_rate heart_rate 64 /min +0000 height_metric height_metric 147.32 cm +0000 height_standard height_standard 58 in +0000 temperature_metric temperature_metric 36.61 C +0000 temperature_standard temperature_standard 9 7.9 F +0000 weight_metric weight_metric 59.024 g_ code +0000 weight_standard weight_standard 59.024 g_code
[2022-04-27 22:23] LABS: HEMOGLOBIN TOTAL, VENOUS WB 15.1 g/dL (12.0-18.0); METHEMOGLOBIN VENOUS 0.3 % (0-1.5)
[2022-04-27 23:16] VITALS: BP 115/72
== END 2022-04-27 22:19 | disposition home or self-care (01) ==
LOC: ED 21:40
DX: T58.01XA Toxic effect of carbon monoxide from motor vehicle exhaust, accidental (unintentional), initial encounter (principal)
CPT/HCPCS: 82375; 99282; 99285; A9270; Q0162

== ENCOUNTER 2022-09-23 07:00 | Outpatient (CLI) | payer OTHER, BC ==
--- NOTE | 2022-09-24 12:02 | XRAY Report ---
PROCEDURE: Chest 2 View X-Ray INDICATIONS: CHEST CONGESTION TECHNIQUE: 2 views of the chest were acquired. COMPARISON: Chest radiographs 11/07/2020 FINDINGS: Surgical changes and devices: Right upper quadrant cholecystectomy clips. Lungs and pleura: No pleural effusions or pneumothorax. Lungs are clear. Mediastinum: Mediastinal contours appear normal. Heart size is normal. Bones and chest wall: No suspicious bony lesions. Overlying soft tissues appear unremarkable. IMPRESSION: No acute cardiopulmonary process. Reviewed by: Jeferson Ty MD on 09/24/2022 12:00 PM PDT Approved by: Jeferson Ty MD on 09/24/2022 12:00 PM PDT Station ID: [id number]
== END 2022-09-23 23:59 | disposition home or self-care (01) ==
LOC: DI.S 07:00
PROVIDERS: ATTEND Physician Assistant Medical
DX: R09.89 Other specified symptoms and signs involving the circulatory and respiratory systems (principal); R07.89 Other chest pain; J02.9 Acute pharyngitis, unspecified
CPT/HCPCS: 87070

== ENCOUNTER 2022-10-16 12:51 | Outpatient (CLI) | payer OTHER | END 2022-10-16 23:59 | disposition critical access hospital (66) | LOC: EMS 12:51 | DX: R07.89 Other chest pain (principal); R11.0 Nausea; M79.602 Pain in left arm | CPT/HCPCS: A0425; A0427 ==

== ENCOUNTER 2022-10-16 13:27 | Emergency (ER) | payer BC, OTHER ==
[2022-10-16] MEDS ORDERED: ACETAMINOPHEN 1,000 MG/100 ML 1,000 MG/100 ML BAG IV ONE (13:53)
[2022-10-16] MEDS ORDERED: SODIUM CHLORIDE 0.9% 500 ML IV STA (13:53)
[2022-10-16] MEDS ORDERED: PROCHLORPERAZINE 10 MG/2 ML VIAL IVP STA (13:53)
[2022-10-16 14:11] VITALS: BP 101/75
[2022-10-16 14:14] LABS: BASOPHILS # (AUTO) 0.1 10^3/uL (0.0-0.1); BASOPHILS % (AUTO) 1.4 %; EOSINOPHILS # (AUTO) 0.2 10^3/uL (0.0-0.7); EOSINOPHILS % (AUTO) 3.3 %; HCT - HEMATOCRIT 39.6 % (37.0-47.0); LYMPHOCYTES # (AUTO) 1.6 10^3/uL (1.5-3.5); MEAN CORPUSCULAR HEMOGLOBIN 29.7 pg (27.0-31.0); MEAN CORPUSCULAR HGB CONC 32.8 g/dL (32.0-36.0); MEAN CORPUSCULAR VOLUME 90.4 fL (81.0-99.0); MEAN PLATELET VOLUME 11.7 fL (7.9-10.8); MONOCYTES # (AUTO) 0.4 10^3/uL (0.0-1.0); MONOCYTES % (AUTO) 6.6 %; NEUTROPHILS # (AUTO) 3.5 10^3/uL (1.5-6.6); NEUTROPHILS % (AUTO) 60.5 %; PLT - PLATELET COUNT 269 10^3/uL (130-450); RED BLOOD COUNT 4.38 10^6/uL (4.20-5.40); RED CELL DISTRIBUTION WIDTH 12.7 % (12.0-15.0); WHITE BLOOD COUNT 5.7 x10^3/uL (4.8-10.8)
--- NOTE | 2022-10-16 14:22 | XRAY Report ---
PROCEDURE: Chest 1 View X-Ray INDICATIONS: Chest Pain TECHNIQUE: One view of the chest was acquired. COMPARISON: None. FINDINGS: Surgical changes and devices: None. Lungs and pleura: No pleural effusions or pneumothorax. Lungs are clear. Mediastinum: Mediastinal contours appear normal. Heart size is normal. Bones and chest wall: No suspicious bony lesions. Overlying soft tissues appear unremarkable. IMPRESSION: No acute cardiopulmonary process. Reviewed by: Norberto Crawley MD on 10/16/2022 2:21 PM PDT Approved by: Norberto Crawley MD on 10/16/2022 2:21 PM PDT Station ID: [id number]
[2022-10-16 14:28] LABS: ALBUMIN 4.1 g/dL (3.2-5.5); ALBUMIN/GLOBULIN RATIO 1.4 (1.0-2.2); BILIRUBIN,TOTAL 0.6 mg/dL (0.2-1.0); CALCIUM 8.9 mg/dL (8.5-10.3); CREATININE 0.6 mg/dL (0.4-1.0); POTASSIUM 3.2 mmol/L (3.5-5.0)
--- OUTSIDE RECORDS SUMMARY | 2022-10-16 14:42 | EXTERNAL MEDICAL SUMMARY RPT | Continuity of Care Document ---
:1985 Author Organization [place] Address [address] [place] [address] Phone Care Team Providers Name Role Phone Unavailable Unavailable Unavailable Jose Rafael Oleary Unavailable Unavailable Federico Polk, Nadia Unavailable Unavailable Allergies and Intolerances date description facility type (no date) BUTORPHANOL TARTRATE [facility] & (unknown) [facility] (no date) HYDROMORPHONE HCL [facility] Care & (unknown) [facility] (no date) Penicillins [facility] (unknown) (no date) aspirin [facility] (unknown) (no date) clavulanic acid [facility] (unknown) (no date) fentanyl [facility] (unknown) (no date) fluticasone [facility] (unknown) (no date) hydrocodone [facility] (unknown) (no date) methylprednisolone [facility] (unknown) (no date) morphine [facility] (unknown) Encounters No information. Functional Status No information. Immunizations No information. Medications date description facility 2022-09-24 00:00 SUCRALFATE [facility] 2022-09-30 00:00 SUCRALFATE [facility] 2022-10-02 00:00 SUCRALFATE [facility] 2022-10-06 00:00 SUCRALFATE [facility] 2022-09-24 00:00 ONDANSETRON HCL [facility] 2022-09-30 00:00 ONDANSETRON HCL [facility] 2022-10-02 00:00 ONDANSETRON HCL [facility] 2022-10-06 00:00 ONDANSETRON HCL [facility] 2022-08-25 00:00 Ondansetron [facility] 2022-08-25 00:00 Oxycodone-Acetaminophen [facility] 2022-09-24 00:00 ONDANSETRON HCL [facility] 2022-09-30 00:00 ONDANSETRON HCL [facility] 2022-10-02 00:00 ONDANSETRON HCL [facility] 2022-10-06 00:00 ONDANSETRON HCL [facility] 2022-09-24 00:00 NORELGESTROMIN-ETH ESTRADIOL [facility] Primary Care & [facility] 2022-09-30 00:00 NORELGESTROMIN-ETH ESTRADIOL [facility] Primary [facility] 2022-10-02 00:00 NORELGESTROMIN-ETH ESTRADIOL [facility] 2022-10-06 00:00 NORELGESTROMIN-ETH ESTRADIOL [facility] 2022-09-24 00:00 SUCRALFATE [facility] 2022-09-30 00:00 SUCRALFATE [facility] 2022-10-02 00:00 SUCRALFATE [facility] 2022-10-06 00:00 SUCRALFATE [facility] 2022-09-24 00:00 SUCRALFATE [facility] 2022-09-30 00:00 SUCRALFATE [facility] 2022-10-02 00:00 SUCRALFATE [facility] 2022-10-06 00:00 SUCRALFATE [facility] 2022-09-24 00:00 SUCRALFATE [facility] 2022-09-30 00:00 SUCRALFATE [facility] 2022-10-02 00:00 SUCRALFATE [facility] 2022-10-06 00:00 SUCRALFATE [facility] 2022-09-24 00:00 ONDANSETRON HCL [facility] 2022-09-30 00:00 ONDANSETRON HCL [facility] 2022-10-02 00:00 ONDANSETRON HCL [facility] 2022-10-06 00:00 ONDANSETRON HCL [facility] 2022-09-24 00:00 NORELGESTROMIN-ETH ESTRADIOL [facility] Primary Care & [facility] 2022-09-30 00:00 NORELGESTROMIN-ETH ESTRADIOL [facility] Primary Care & [facility] 2022-10-02 00:00 NORELGESTROMIN-ETH ESTRADIOL [facility] Primary Care & [facility] 2022-10-06 00:00 NORELGESTROMIN-ETH ESTRADIOL [facility] Primary Care & [facility] 2022-09-24 00:00 NORELGESTROMIN-ETH ESTRADIOL [facility] Primary Care & [facility] Services [facility] 2022-09-30 00:00 NORELGESTROMIN-ETH ESTRADIOL [facility] Primary [facility] & [facility] 2022-10-02 00:00 NORELGESTROMIN-ETH ESTRADIOL [facility] Primary Care & [facility] 2022-10-06 00:00 NORELGESTROMIN-ETH ESTRADIOL [facility] Primary Care & [facility] Services [facility] Problems date description facility 2022-08-25 00:00 [facility] 2022-08-25 00:00 Bright red blood per rectum [facility] 2022-08-27 00:00 Patient left without being seen [facility] 2022-09-23 00:00 Atypical chest pain [facility] 2022-09-23 00:00 Pulmonary congestion [facility] 2022-09-23 00:00 Other symptoms involving [facility] Primary Care & respiratory system and chest Ancillary S ervices [facility] 2022-09-23 00:00 Other chest pain [facility] 2022-09-23 00:00 Other specified symptoms and signs [facility] Care & involving the circulatory and Ancillary Services [place] [facility] 2022-09-24 00:00 Rheumatic fever without mention of [facility] & heart involvement [facility] 2022-09-24 00:00 Rheumatic fever [facility] 2022-09-24 00:00 Rheumatic fever without heart [facility] Primary Care & involvement [facility] 2022-09-30 00:00 Rheumatic fever without mention of [facility] heart involvement [facility] 2022-09-30 00:00 Rheumatic fever [facility] 2022-09-30 00:00 Rheumatic fever without heart [facility] Primary Care & involvement [facility] 2022-10-02 00:00 Rheumatic fever without mention of [facility] & heart involvement [facility] 2022-10-02 00:00 Rheumatic fever [facility] 2022-10-02 00:00 Rheumatic fever without heart [facility] Care & involvement [facility] 2022-10-06 00:00 Rheumatic fever without mention of [facility] & heart involvement [facility] 2022-10-06 00:00 Rheumatic fever [facility] 2022-10-06 00:00 Rheumatic fever without heart [facility] & involvement [facility] Procedures date description facility 2022-09-23 00:00 Visit Code Hold [facility] 2022-08-27 00:00 X-[facility], [facility] 2022-08-[facility] 00:00 CT abdomen pelvis w con [facility] 2022-09-23 00:00 POC STREP TEST [facility] Results/Labs test date author facility value unit interpret ation Result panel 1 (unknown) (no date) (unknown) [facility] (no value) [facility]units [facility] Primary unknown) [facility] Result panel 2 (unknown) (no date) (unknown[facility]) Result panel 3 (unknown) (no date) (unknown[facility] Result panel 4 (unknown) (no date) (unknown[facility]) Result panel 5 (unknown) (no date) (unknown[facility]) Result panel 6 (unknown) (no date) (unknown[facility]) Result panel 7 (unknown) (no date) (unknown[facility]) Result panel 8 (unknown) (no date) (unknown[facility]) Result panel 9 (unknown) (no date) (unknown[facility]) Result panel 10 (unknown) (no date) (unknown[facility]) Result panel 11 (unknown) (no date) (unknown[facility]) Result panel 12 (unknown) (no date) (unknown[facility]) Result panel 13 (unknown) (no date) (unknown[facility]) Result panel 14 (unknown) (no date) (unknown[facility]) Result panel 15 (unknown) (no date) (unknown[facility]) Result panel 16 (unknown) (no date) (unknown) [facility]) Result panel 17 (unknown) (no date) (unknown[facility]) Result panel 18 (unknown) (no date) (unknown[facility]) Result panel 19 (unknown) (no date) (unknown[facility]) Result panel 20 (unknown) (no date) (unknown[facility]) Result panel 21 (unknown) (no date) (unknown[facility]) Result panel 22 (unknown) (no date) (unknown[facility]) Result panel 23 (unknown) (no date) (unknown[facility]) Result panel 24 (unknown) (no date) (unknown[facility]) Result panel 25 (unknown) (no date) (unknown[facility]) Result panel 26 (unknown) (no date) (unknown[facility]) Result panel 27 (unknown) (no date) (unknown[facility]) Result panel 28 (unknown) (no date) (unknown) [facility]) Result panel 29 (unknown) (no date) (unknown[facility]) Result panel 30 (unknown) (no date) (unknown[facility]) Result panel 31 (unknown) (no date) (unknown[facility]) Result panel 32 (unknown) (no date) (unknown) [facility]) Result panel 33 (unknown) (no date) (unknown) [facility]) Result panel 34 (unknown) (no date) (unknown) [facility]) Result panel 35 (unknown) (no date) (unknown) [facility]) Result panel 36 (unknown) (no date) (unknown) [facility]) Result panel 37 (unknown) (no date) (unknown) [facility]) Result panel 38 (unknown) (no date) (unknown) [facility]) Result panel 39 (unknown) (no date) (unknown) [facility]) Result panel 40 (unknown) (no date) (unknown) [facility]) Result panel 41 (unknown) (no date) (unknown) [facility]) Result panel 42 (unknown) (no date) (unknown) [facility]) Result panel 43 (unknown) (no date) (unknown) [facility]) Result panel 44 (unknown) (no date) (unknown) [facility]) Result panel 45 (unknown) (no date) (unknown) [facility]) Result panel 46 (unknown) (no date) (unknown) [facility]) Result panel 47 (unknown) (no date) (unknown) [facility]) Result panel 48 (unknown) (no date) (unknown) [facility]) Result panel 49 (unknown) (no date) (unknown) [facility]) Result panel 50 (unknown) (no date) (unknown) [facility]) Result panel 51 (unknown) (no date) (unknown) [facility]) Result panel 52 (unknown) (no date) (unknown) [facility]) Result panel 53 (unknown) (no date) (unknown) [facility]) Result panel 54 (unknown) (no date) (unknown) [facility]) Result panel 55 (unknown) (no date) (unknown) [facility]) Result panel 56 (unknown) (no date) (unknown) [facility]) Result panel 57 (unknown) (no date) (unknown) [facility]) Result panel 58 (unknown) (no date) (unknown) [facility]) Result panel 59 (unknown) (no date) (unknown) [facility]) Result panel 60 (unknown) (no date) (unknown) [facility]) Result panel 61 (unknown) (no date) (unknown) [facility]) Result panel 62 (unknown) (no date) (unknown) [facility]) Result panel 63 (unknown) (no date) (unknown) [facility]) Result panel 64 (unknown) (no date) (unknown[facility]) Result panel 65 (unknown) (no date) (unknown) [facility]) Result panel 66 (unknown) (no date) (unknown) [facility]) Result panel 67 (unknown) (no date) (unknown) [facility]) Result panel 68 (unknown) (no date) (unknown) [facility]) Result panel 69 (unknown) (no date) (unknown) [facility]) Result panel 70 (unknown) (no date) (unknown) [facility]) Result panel 71 (unknown) (no date) (unknown) [facility]) Result panel 72 (unknown) (no date) (unknown) [facility]) Result panel 73 (unknown) (no date) (unknown) [facility]) Result panel 74 (unknown) (no date) (unknown) [facility]) Result panel 75 (unknown) (no date) (unknown) [facility]) Result panel 76 (unknown) (no date) (unknown) [facility]) Result panel 77 (unknown) (no date) (unknown) [facility]) Result panel 78 (unknown) (no date) (unknown) [facility]) Result panel 79 (unknown) (no date) (unknown) [facility]) Result panel 80 (unknown) (no date) (unknown) [facility]) Result panel 81 (unknown) (no date) (unknown) [facility]) Result panel 82 (unknown) (no date) (unknown) [facility]) Result panel 83 (unknown) (no date) (unknown) [facility]) Result panel 84 (unknown) (no date) (unknown) [facility]) Result panel 85 (unknown) (no date) (unknown) [facility]) Result panel 86 (unknown) (no date) (unknown) [facility]) Result panel 87 (unknown) (no date) (unknown) [facility]) Result panel 88 (unknown) (no date) (unknown) [facility]) Result panel 89 (unknown) (no date) (unknown) [facility]) Result panel 90 (unknown) (no date) (unknown) [facility]) Result panel 91 (unknown) (no date) (unknown) [facility]) Result panel 92 (unknown) (no date) (unknown) [facility]) Result panel 93 (unknown) (no date) (unknown) [facility]) Result panel 94 (unknown) (no date) (unknown) [facility]) Result panel 95 (unknown) (no date) (unknown) [facility]) Result panel 96 (unknown) (no date) (unknown) [facility]) Result panel 97 (unknown) (no date) (unknown) [facility]) Result panel 98 (unknown) (no date) (unknown) [facility]) Result panel 99 (unknown) (no date) (unknown) [facility]) Result panel 100 (unknown) (no date) (unknown) [facility]) Result panel 101 (unknown) (no date) (unknown) [facility]) Result panel 102 (unknown) (no date) (unknown) [facility]) Result panel 103 (unknown) (no date) (unknown) [facility]) Result panel 104 (unknown) (no date) (unknown) [facility]) Result panel 105 (unknown) (no date) (unknown) [facility]) Result panel 106 (unknown) (no date) (unknown) [facility]) Result panel 107 (unknown) (no date) (unknown) [facility]) Result panel 108 (unknown) (no date) (unknown) [facility]) Result panel 109 (unknown) (no date) (unknown) [facility]) Result panel 110 (unknown) (no date) (unknown) [facility]) Result panel 111 (unknown) (no date) (unknown) [facility]) Result panel 112 (unknown) (no date) (unknown) [facility] (no value[facility] Primary unknown) [facility] Result panel 113 (unknown) (no date) (unknown) [facility]) Result panel 114 (unknown) (no date) (unknown) [facility]) Result panel 115 (unknown) (no date) (unknown) [facility]) Result panel 116 (unknown) (no date) (unknown) [facility]) Result panel 117 (unknown) (no date) (unknown) [facility]) Result panel 118 (unknown) (no date) (unknown) [facility]) Result panel 119 (unknown) (no date) (unknown) [facility]) Result panel 120 (unknown) (no date) (unknown) [facility]) Result panel 121 (unknown) (no date) (unknown) [facility]) Result panel 122 (unknown) (no date) (unknown) [facility]) Result panel 123 (unknown) (no date) (unknown) [facility]) Result panel 124 (unknown) (no date) (unknown) [facility]) Result panel 125 (unknown) (no date) (unknown) [facility]) Result panel 126 (unknown) (no date) (unknown) [facility]) Result panel 127 (unknown) (no date) (unknown) [facility]) Result panel 128 (unknown) (no date) (unknown) [facility]) Result panel 129 (unknown) (no date) (unknown) [facility]) Result panel 130 (unknown) (no date) (unknown) [facility]) Result panel 131 (unknown) (no date) (unknown) [facility]) Result panel 132 (unknown) (no date) (unknown) [facility]) Result panel 133 (unknown) (no date) (unknown) [facility]) Result panel 134 (unknown) (no date) (unknown) [facility]) Result panel 135 (unknown) (no date) (unknown) [facility]) Result panel 136 (unknown) (no date) (unknown) [facility]) Result panel 137 (unknown) (no date) (unknown) [facility]) Result panel 138 (unknown) (no date) (unknown) [facility]) Result panel 139 (unknown) (no date) (unknown) [facility]) Result panel 140 (unknown) (no date) (unknown) [facility]) Result panel 141 (unknown) (no date) (unknown) [facility]) Result panel 142 (unknown) (no date) (unknown) [facility]) Result panel 143 (unknown) (no date) (unknown) [facility]) Result panel 144 (unknown) (no date) (unknown) [facility]) Result panel 145 (unknown) (no date) (unknown) [facility]) Result panel 146 (unknown) (no date) (unknown) [facility]) Result panel 147 (unknown) (no date) (unknown) [facility]) Result panel 148 (unknown) (no date) (unknown) [facility]) Result panel 149 (unknown) (no date) (unknown) [facility]) Result panel 150 (unknown) (no date) (unknown) [facility]) Result panel 151 (unknown) (no date) (unknown) [facility]) Result panel 152 (unknown) (no date) (unknown) [facility]) Result panel 153 (unknown) (no date) (unknown) [facility]) Result panel 154 (unknown) (no date) (unknown) [facility]) Result panel 155 (unknown) (no date) (unknown[facility] Result panel 156 (unknown) (no date) (unknown) [facility]) Result panel 157 (unknown) (no date) (unknown) [facility] Result panel 158 (unknown) (no date) (unknown) [facility]) Result panel 159 (unknown) (no date) (unknown) [facility]) Result panel 160 (unknown) (no date) (unknown) [facility]) Result panel 161 (unknown) (no date) (unknown) [facility]) Result panel 162 (unknown) (no date) (unknown) [facility]) Result panel 163 (unknown) (no date) (unknown) [facility]) Result panel 164 (unknown) (no date) (unknown) [facility]) Result panel 165 (unknown) (no date) (unknown) [facility]) Result panel 166 (unknown) (no date) (unknown) [facility]) Result panel 167 (unknown) (no date) (unknown) [facility]) Result panel 168 (unknown) (no date) (unknown) [facility]) Result panel 169 (unknown) (no date) (unknown) [facility]) Result panel 170 (unknown) (no date) (unknown) [facility]) Result panel 171 (unknown) (no date) (unknown) [facility]) Result panel 172 (unknown) (no date) (unknown[facility]) Result panel 173 (unknown) (no date) (unknown) [facility]) Result panel 174 (unknown) (no date) (unknown) [facility]) Result panel 175 (unknown) (no date) (unknown) [facility]) Result panel 176 (unknown) (no date) (unknown) [facility]) Result panel 177 (unknown) (no date) (unknown) [facility]) Result panel 178 (unknown) (no date) (unknown) [facility]) Result panel 179 (unknown) (no date) (unknown) [facility]) Result panel 180 (unknown) (no date) (unknown) [facility]) Result panel 181 (unknown) (no date) (unknown) [facility]) Result panel 182 (unknown) (no date) (unknown) [facility]) Result panel 183 (unknown) (no date) (unknown) [facility]) Result panel 184 (unknown) (no date) (unknown) [facility]) Result panel 185 (unknown) (no date) (unknown) [facility]) Result panel 186 (unknown) (no date) (unknown) [facility]) Result panel 187 (unknown) (no date) (unknown) [facility]) Result panel 188 (unknown) (no date) (unknown) [facility]) Result panel 189 (unknown) (no date) (unknown) [facility]) Result panel 190 (unknown) (no date) (unknown) [facility]) Result panel 191 (unknown) (no date) (unknown) [facility]) Result panel 192 (unknown) (no date) (unknown) [facility]) Result panel 193 (unknown) (no date) (unknown) [facility]) Result panel 194 (unknown) (no date) (unknown) [facility]) Result panel 195 (unknown) (no date) (unknown) [facility]) Result panel 196 (unknown) (no date) (unknown) [facility]) Result panel 197 (unknown) (no date) (unknown) [facility]) Result panel 198 (unknown) (no date) (unknown) [facility]) Result panel 199 (unknown) (no date) (unknown) [facility]) Result panel 200 (unknown) (no date) (unknown) [facility]) Result panel 201 (unknown) (no date) (unknown) [facility]) Result panel 202 (unknown) (no date) (unknown) [facility]) Result panel 203 (unknown) (no date) (unknown) [facility]) Result panel 204 (unknown) (no date) (unknown) [facility]) Result panel 205 (unknown) (no date) (unknown) [facility]) Result panel 206 (unknown) (no date) (unknown) [facility]) Result panel 207 (unknown) (no date) (unknown) [facility]) Result panel 208 (unknown) (no date) (unknown) [facility]) Result panel 209 (unknown) (no date) (unknown) [facility]) Result panel 210 (unknown) (no date) (unknown) [facility]) Result panel 211 (unknown) (no date) (unknown) [facility]) Result panel 212 (unknown) (no date) (unknown) [facility]) Result panel 213 (unknown) (no date) (unknown) [facility]) Result panel 214 (unknown) (no date) (unknown) [facility]) Result panel 215 (unknown) (no date) (unknown) [facility]) Result panel 216 (unknown) (no date) (unknown) [facility]) Result panel 217 (unknown) (no date) (unknown) [facility]) Result panel 218 (unknown) (no date) (unknown) [facility]) Result panel 219 (unknown) (no date) (unknown) [facility]) Result panel 220 (unknown) (no date) (unknown) [facility]) Result panel 221 (unknown) (no date) (unknown) [facility]) Result panel 222 (unknown) (no date) (unknown) [facility]) Result panel 223 (unknown) (no date) (unknown) [facility] (no value[facility]) [facility] Result panel 224 (unknown) (no date) (unknown) [facility]) Result panel 225 (unknown) (no date) (unknown) [facility]) Result panel 226 (unknown) (no date) (unknown) [facility]) Result panel 227 (unknown) (no date) (unknown) [facility]) Result panel 228 (unknown) (no date) (unknown) [facility]) Result panel 229 (unknown) (no date) (unknown) [facility]) Result panel 230 (unknown) (no date) (unknown) [facility]) Result panel 231 (unknown) (no date) (unknown) [facility]) Result panel 232 (unknown) (no date) (unknown) [facility]) Result panel 233 (unknown) (no date) (unknown) [facility]) Result panel 234 (unknown) (no date) (unknown) [facility]) Result panel 235 (unknown) (no date) (unknown) [facility]) Result panel 236 (unknown) (no date) (unknown) [facility]) Result panel 237 (unknown) (no date) (unknown) [facility]) Result panel 238 (unknown) (no date) (unknown) [facility]) Result panel 239 (unknown) (no date) (unknown) [facility]) Result panel 240 (unknown) (no date) (unknown) [facility]) Result panel 241 (unknown) (no date) (unknown) [facility]) Result panel 242 (unknown) (no date) (unknown) [facility]) Result panel 243 (unknown) (no date) (unknown) [facility]) Result panel 244 (unknown) (no date) (unknown) [facility]) Result panel 245 (unknown) (no date) (unknown) [facility]) Result panel 246 (unknown) (no date) (unknown) [facility]) Result panel 247 (unknown) (no date) (unknown) [facility]) Result panel 248 (unknown) (no date) (unknown) [facility]) Result panel 249 (unknown) (no date) (unknown) [facility]) Result panel 250 (unknown) (no date) (unknown) [facility]) Result panel 251 (unknown) (no date) (unknown) [facility]) Result panel 252 (unknown) (no date) (unknown) [facility]) Result panel 253 (unknown) (no date) (unknown) [facility]) Result panel 254 (unknown) (no date) (unknown) [facility]) Result panel 255 (unknown) (no date) (unknown) [facility]) Result panel 256 (unknown) (no date) (unknown) [facility]) Result panel 257 (unknown) (no date) (unknown) [facility]) Result panel 258 (unknown) (no date) (unknown) [facility]) Result panel 259 (unknown) (no date) (unknown) [facility]) Result panel 260 (unknown) (no date) (unknown) [facility]) Result panel 261 (unknown) (no date) (unknown) [facility] (no value[facility] unknown) [facility] Result panel 262 (unknown) (no date) (unknown) [facility]) Result panel 263 (unknown) (no date) (unknown) [facility]) Result panel 264 (unknown) (no date) (unknown) [facility]) Result panel 265 (unknown) (no date) (unknown) [facility]) Result panel 266 (unknown) (no date) (unknown) [facility]) Result panel 267 (unknown) (no date) (unknown) [facility]) Result panel 268 (unknown) (no date) (unknown) [facility]) Result panel 269 (unknown) (no date) (unknown) [facility]) Result panel 270 (unknown) (no date) (unknown) [facility]) Result panel 271 (unknown) (no date) (unknown) [facility]) Result panel 272 (unknown) (no date) (unknown) [facility]) Result panel 273 (unknown) (no date) (unknown) [facility]) Result panel 274 (unknown) (no date) (unknown) [facility]) Result panel 275 (unknown) (no date) (unknown) [facility]) Result panel 276 (unknown) (no date) (unknown) [facility]) Result panel 277 (unknown) (no date) (unknown) [facility]) Result panel 278 (unknown) (no date) (unknown) [facility]) Result panel 279 (unknown) (no date) (unknown) [facility]) Result panel 280 (unknown) (no date) (unknown) [facility]) Result panel 281 (unknown) (no date) (unknown) [facility]) Result panel 282 (unknown) (no date) (unknown) [facility]) Result panel 283 (unknown) (no date) (unknown) [facility]) Result panel 284 (unknown) (no date) (unknown) [facility]) Result panel 285 (unknown) (no date) (unknown) [facility]) Result panel 286 (unknown) (no date) (unknown) [facility]) Result panel 287 (unknown) (no date) (unknown) [facility]) Result panel 288 (unknown) (no date) (unknown) [facility]) Result panel 289 (unknown) (no date) (unknown) [facility]) Result panel 290 (unknown) (no date) (unknown) [facility]) Result panel 291 (unknown) (no date) (unknown) [facility]) Result panel 292 (unknown) (no date) (unknown) [facility]) Result panel 293 (unknown) (no date) (unknown) [facility]) Result panel 294 (unknown) (no date) (unknown) [facility]) Result panel 295 (unknown) (no date) (unknown) [facility]) Result panel 296 (unknown) (no date) (unknown) [facility]) Result panel 297 (unknown) (no date) (unknown) [facility]) Result panel 298 (unknown) (no date) (unknown) [facility]) Result panel 299 (unknown) (no date) (unknown) [facility]) Result panel 300 (unknown) (no date) (unknown) [facility]) Result panel 301 (unknown) (no date) (unknown) [facility]) Result panel 302 (unknown) (no date) (unknown) [facility]) Result panel 303 (unknown) (no date) (unknown) [facility]) Result panel 304 (unknown) (no date) (unknown) [facility]) Result panel 305 (unknown) (no date) (unknown) [facility]) Result panel 306 (unknown) (no date) (unknown) [facility]) Result panel 307 (unknown) (no date) (unknown) [facility]) Result panel 308 (unknown) (no date) (unknown) [facility]) Result panel 309 (unknown) (no date) (unknown) [facility]) Result panel 310 (unknown) (no date) (unknown) [facility]) Result panel 311 (unknown) (no date) (unknown) [facility]) Result panel 312 (unknown) (no date) (unknown) [facility]) Result panel 313 (unknown) (no date) (unknown) [facility]) Result panel 314 (unknown) (no date) (unknown) [facility]) Result panel 315 (unknown) (no date) (unknown) [facility]) Result panel 316 (unknown) (no date) (unknown) [facility]) Result panel 317 (unknown) (no date) (unknown) [facility]) Result panel 318 (unknown) (no date) (unknown) [facility]) Result panel 319 (unknown) (no date) (unknown) [facility]) Result panel 320 (unknown) (no date) (unknown) [facility]) Result panel 321 (unknown) (no date) (unknown) [facility]) Result panel 322 (unknown) (no date) (unknown) [facility]) Result panel 323 (unknown) (no date) (unknown) [facility]) Result panel 324 (unknown) (no date) (unknown) [facility]) Result panel 325 (unknown) (no date) (unknown) [facility]) Result panel 326 (unknown) (no date) (unknown) [facility]) Result panel 327 (unknown) (no (unknown) (unknown) (no value) (units (unk nown) date) unknown) (unknown) (no (unknown) (unknown) [id number] (units (unkno wn) date) unknown) (unknown) (no (unknown) (unknown) 08/25/22 (units (unkno wn) date) unknown) (unknown) (no (unknown) (unknown) 12:05) (units (unkno wn) date) unknown) (unknown) (no (unknown) (unknown) Age/Sex: 36 / F (units (unknown) date) Date of Service: unknown) (unknown) (no (unknown) (unknown) Agitated (units (unkno wn) date) unknown) (unknown) (no (unknown) (unknown) Allergies (units (unkn own) date) unknown) (unknown) (no (unknown) (unknown) [place] [facility] (units (unknown) date) [facility] unknown) (unknown) (no (unknown) (unknown) [place] [address] (unit s (unknown) date) unknown) (unknown) (no (unknown) (unknown) Anaphylaxis (units (un known) date) unknown) (unknown) (no (unknown) (unknown) Anesthesia (units (unk nown) date) unknown) (unknown) (no (unknown) (unknown) Anxiety (units (unkno wn) date) unknown) (unknown) (no (unknown) (unknown) Attending Dr: (units ( unknown) date) Breanna ARIZMENDI unknown) (unknown) (no (unknown) (unknown) Brother Kidney (units (unknown) date) disease unknown) (unknown) (no (unknown) (unknown) 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 unknown) (unknown) (no (unknown) (unknown) Documented By: (units (unknown) date) Breanna Erickson unknown) 08/25/22 1304 (unknown) (no (unknown) (unknown) Draft (units (unkno wn) date) unknown) (unknown) (no (unknown) (unknown) 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 (units ( unknown) date) unknown) (unknown) (no (unknown) (unknown) Family History (units (unknown) date) (Updated 03/18/22 @ unknown) 20:37 by La Lorenzana) (unknown) (no (unknown) (unknown) Father Prostate (units (unknown) date) cancer unknown) (unknown) (no (unknown) (unknown) Fatigue (units (unkno wn) date) unknown) (unknown) (no (unknown) (unknown) Food sticks on (units (unknown) date) swallowing unknown) (unknown) (no (unknown) (unknown) Fractures (units (unkn own) date) unknown) (unknown) (no (unknown) (unknown) GERD (units (unkno wn) date) (gastroesophageal unknown) reflux disease) (unknown) (no (unknown) (unknown) Grandmother Breast (units (unknown) date) cancer unknown) (unknown) (no (unknown) (unknown) Headache (units (unkno wn) date) unknown) (unknown) (no (unknown) (unknown) Heavy menstrual (units (unknown) date) period unknown) (unknown) (no (unknown) (unknown) History of brain (units (unknown) date) surgery unknown) (unknown) (no (unknown) (unknown) History of cone (units (unknown) date) biopsy of cervix unknown) (unknown) (no (unknown) (unknown) 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 (unknown) (no (unknown) (unknown) History of peptic (units (unknown) date) ulcer disease unknown) (unknown) (no (unknown) (unknown) Hives (units (unkno wn) date) unknown) (unknown) (no (unknown) (unknown) Hyperlipidemia (units (unknown) date) unknown) (unknown) (no (unknown) (unknown) Intake Note: (units (u nknown) date) unknown) (unknown) (no (unknown) (unknown) Intake performed (units (unknown) date) by: Magdiel Kapadia unknown) (unknown) (no (unknown) (unknown) Intake (units (unkno wn) date) unknown) (unknown) (no (unknown) (unknown) Intake- Clincial (units (unknown) date) Staff unknown) (unknown) (no (unknown) (unknown) Irritable bowel (units (unknown) date) syndrome unknown) (unknown) (no (unknown) (unknown) Kidney disease (units (unknown) date) unknown) (unknown) (no (unknown) (unknown) Loc: [facility] (units (unkno wn) date) unknown) (unknown) (no (unknown) (unknown) Medical History (units (unknown) date) (Updated 03/18/22 @ unknown) 20:34 by La Lorenzana) (unknown) (no (unknown) (unknown) Migraines (units (unkn own) date) unknown) (unknown) (no (unknown) (unknown) Mother Thyroid (units (unknown) date) cancer unknown) (unknown) (no (unknown) (unknown) Ovarian cyst (units (u nknown) date) unknown) (unknown) (no (unknown) (unknown) PFSH (units (unkno wn) date) unknown) (unknown) (no (unknown) (unknown) Patient: (units (unkno wn) date) Ni Rosales A unknown) MR#: [id number] (unknown) (no (unknown) (unknown) Penicillins Allergy (unit s (unknown) date) (Severe, Verified unknown) 03/07/21 11:59) (unknown) (no (unknown) (unknown) Perforated ulcer (units (unknown) date) unknown) (unknown) (no (unknown) (unknown) Polycystic kidney (units (unknown) date) disease unknown) (unknown) (no (unknown) (unknown) Pt presents with (units (unknown) date) blood in stool unknown) (unknown) (no (unknown) (unknown) Reason For Visit (units (unknown) date) unknown) (unknown) (no (unknown) (unknown) Restless leg (units (u nknown) date) syndrome unknown) (unknown) (no (unknown) (unknown) Rheumatic fever (units (unknown) date) unknown) (unknown) (no (unknown) (unknown) Signed By: (units (unk nown) date) unknown) (unknown) (no (unknown) (unknown) Sister Kidney (units ( unknown) date) disease unknown) (unknown) (no (unknown) (unknown) Smoking Status: (units (unknown) date) Never smoker unknown) (unknown) (no (unknown) (unknown) Social History (units (unknown) date) unknown) (unknown) (no (unknown) (unknown) Status post (units (un known) date) appendectomy unknown) (unknown) (no (unknown) (unknown) Status post (units (un known) date) cholecystectomy unknown) (unknown) (no (unknown) (unknown) Surgical History (units (unknown) date) (Updated 03/18/22 @ unknown) 20:34 by La Lorenzana) (unknown) (no (unknown) (unknown) This note may have (units (unknown) date) been all or unknown) partially generated using voice recognition (unknown) (no (unknown) (unknown) Tobacco + Substance (unit s (unknown) date) Use unknown) (unknown) (no (unknown) (unknown) Tobacco Status (units (unknown) date) unknown) (unknown) (no (unknown) (unknown) Ulcerative colitis (units (unknown) date) unknown) (unknown) (no (unknown) (unknown) Visit Reasons: (units (unknown) date) blood in stool unknown) (unknown) (no (unknown) (unknown) Vomiting (units (unkno wn) date) unknown) (unknown) (no (unknown) (unknown) Walk In Clinic (units (unknown) date) Visit unknown) (unknown) (no (unknown) (unknown) alcohol intake: (units (unknown) date) never unknown) (unknown) (no (unknown) (unknown) aspirin Allergy (units (unknown) date) (Severe, Verified unknown) 03/07/21 12:01) (unknown) (no (unknown) (unknown) clavulanic acid (units (unknown) date) Allergy (Severe, unknown) Verified 03/07/21 12:00) (unknown) (no (unknown) (unknown) fentanyl Allergy (units [...] unknown) 03/07/21 12:05) (unknown) (no (unknown) (unknown) occurred due to the (unit s (unknown) date) inherent limitations unknown) of voice recognition software. Please (unknown) (no (unknown) (unknown) read the note (units ( unknown) date) carefully and unknown) recognize, using context, where these substitutions (unknown) (no (unknown) (unknown) software. Although (units (unknown) date) every effort is made unknown) to edit content, administration manager errors Result panel 328 (unknown) (no (unknown) (unknown) (no value) (units (unk nown) date) unknown) (unknown) (no (unknown) (unknown) [id number] (units (unkno wn) date) unknown) (unknown) (no (unknown) (unknown) 08/25/22 (units (unkno wn) date) unknown) (unknown) (no (unknown) (unknown) 12:05) (units (unkno wn) date) unknown) (unknown) (no (unknown) (unknown) Age/Sex: 36 / F (units (unknown) date) Date of Service: unknown) (unknown) (no (unknown) (unknown) Agitated (units (unkno wn) date) unknown) (unknown) (no (unknown) (unknown) Allergies (units (unkn own) date) unknown) (unknown) (no (unknown) (unknown) [place] [facility] (units (unknown) date) Medicine unknown) (unknown) (no (unknown) (unknown) [place] [address] (unit s (unknown) date) unknown) (unknown) (no (unknown) (unknown) Anaphylaxis (units (un known) date) unknown) (unknown) (no (unknown) (unknown) Anesthesia (units (unk nown) date) unknown) (unknown) (no (unknown) (unknown) Anxiety (units (unkno wn) date) unknown) (unknown) (no (unknown) (unknown) Attending Dr: (units ( unknown) date) Breanna ARIZMENDI unknown) (unknown) (no (unknown) (unknown) Brother Kidney (units (unknown) date) disease unknown) (unknown) (no (unknown) (unknown) Cancelled (units (unkn own) date) unknown) (unknown) (no (unknown) (unknown) 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 unknown) (unknown) (no (unknown) (unknown) Documented By: (units (unknown) date) Breanna Erickson unknown) 08/25/22 1304 (unknown) (no (unknown) (unknown) 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 (units ( unknown) date) unknown) (unknown) (no (unknown) (unknown) Family History (units (unknown) date) (Updated 03/18/22 @ unknown) 20:37 by La Lorenzana) (unknown) (no (unknown) (unknown) Father Prostate (units (unknown) date) cancer unknown) (unknown) (no (unknown) (unknown) Fatigue (units (unkno wn) date) unknown) (unknown) (no (unknown) (unknown) Food sticks on (units (unknown) date) swallowing unknown) (unknown) (no (unknown) (unknown) Fractures (units (unkn own) date) unknown) (unknown) (no (unknown) (unknown) GERD (units (unkno wn) date) (gastroesophageal unknown) reflux disease) (unknown) (no (unknown) (unknown) Grandmother Breast (units (unknown) date) cancer unknown) (unknown) (no (unknown) (unknown) Headache (units (unkno wn) date) unknown) (unknown) (no (unknown) (unknown) Heavy menstrual (units (unknown) date) period unknown) (unknown) (no (unknown) (unknown) History of brain (units (unknown) date) surgery unknown) (unknown) (no (unknown) (unknown) History of cone (units (unknown) date) biopsy of cervix unknown) (unknown) (no (unknown) (unknown) 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 (unknown) (no (unknown) (unknown) History of peptic (units (unknown) date) ulcer disease unknown) (unknown) (no (unknown) (unknown) Hives (units (unkno wn) date) unknown) (unknown) (no (unknown) (unknown) Hyperlipidemia (units (unknown) date) unknown) (unknown) (no (unknown) (unknown) Intake Note: (units (u nknown) date) unknown) (unknown) (no (unknown) (unknown) Intake performed (units (unknown) date) by: Magdiel Kapadia unknown) (unknown) (no (unknown) (unknown) Intake (units (unkno wn) date) unknown) (unknown) (no (unknown) (unknown) Intake- Clincial (units (unknown) date) Staff unknown) (unknown) (no (unknown) (unknown) Irritable bowel (units (unknown) date) syndrome unknown) (unknown) (no (unknown) (unknown) Kidney disease (units (unknown) date) unknown) (unknown) (no (unknown) (unknown) Loc: [facility] (units (unkno wn) date) unknown) (unknown) (no (unknown) (unknown) Medical History (units (unknown) date) (Updated 03/18/22 @ unknown) 20:34 by La Lorenzana) (unknown) (no (unknown) (unknown) Migraines (units (unkn own) date) unknown) (unknown) (no (unknown) (unknown) Mother Thyroid (units (unknown) date) cancer unknown) (unknown) (no (unknown) (unknown) Ovarian cyst (units (u nknown) date) unknown) (unknown) (no (unknown) (unknown) PFSH (units (unkno wn) date) unknown) (unknown) (no (unknown) (unknown) Patient: (units (unkno wn) date) Ni Rosales A unknown) MR#: [id number] (unknown) (no (unknown) (unknown) Penicillins Allergy (unit s (unknown) date) (Severe, Verified unknown) 03/07/21 11:59) (unknown) (no (unknown) (unknown) Perforated ulcer (units (unknown) date) unknown) (unknown) (no (unknown) (unknown) Polycystic kidney (units (unknown) date) disease unknown) (unknown) (no (unknown) (unknown) Pt presents with (units (unknown) date) blood in stool unknown) (unknown) (no (unknown) (unknown) Reason For Visit (units (unknown) date) unknown) (unknown) (no (unknown) (unknown) Restless leg (units (u nknown) date) syndrome unknown) (unknown) (no (unknown) (unknown) Rheumatic fever (units (unknown) date) unknown) (unknown) (no (unknown) (unknown) Signed By: (units (unk nown) date) unknown) (unknown) (no (unknown) (unknown) Sister Kidney (units ( unknown) date) disease unknown) (unknown) (no (unknown) (unknown) Smoking Status: (units (unknown) date) Never smoker unknown) (unknown) (no (unknown) (unknown) Social History (units (unknown) date) unknown) (unknown) (no (unknown) (unknown) Status post (units (un known) date) appendectomy unknown) (unknown) (no (unknown) (unknown) Status post (units (un known) date) cholecystectomy unknown) (unknown) (no (unknown) (unknown) Surgical History (units (unknown) date) (Updated 03/18/22 @ unknown) 20:34 by La Lorenzana) (unknown) (no (unknown) (unknown) This note may have (units (unknown) date) been all or unknown) partially generated using voice recognition (unknown) (no (unknown) (unknown) Tobacco + Substance (unit s (unknown) date) Use unknown) (unknown) (no (unknown) (unknown) Tobacco Status (units (unknown) date) unknown) (unknown) (no (unknown) (unknown) Ulcerative colitis (units (unknown) date) unknown) (unknown) (no (unknown) (unknown) Visit Reasons: (units (unknown) date) blood in stool unknown) (unknown) (no (unknown) (unknown) Vomiting (units (unkno wn) date) unknown) (unknown) (no (unknown) (unknown) Walk In Clinic (units (unknown) date) Visit unknown) (unknown) (no (unknown) (unknown) alcohol intake: (units (unknown) date) never unknown) (unknown) (no (unknown) (unknown) aspirin Allergy (units (unknown) date) (Severe, Verified unknown) 03/07/21 12:01) (unknown) (no (unknown) (unknown) clavulanic acid (units (unknown) date) Allergy (Severe, unknown) Verified 03/07/21 12:00) (unknown) (no (unknown) (unknown) fentanyl Allergy (units [...] unknown) 03/07/21 12:05) (unknown) (no (unknown) (unknown) occurred due to the (unit s (unknown) date) inherent limitations unknown) of voice recognition software. Please (unknown) (no (unknown) (unknown) read the note (units ( unknown) date) carefully and unknown) recognize, using context, where these substitutions (unknown) (no (unknown) (unknown) software. Although (units (unknown) date) every effort is made unknown) to edit content, administration manager errors Result panel 329 (unknown) (no date) (unknown) (unknown) 1.1 % (unkn own) (unknown) (no date) (unknown) (unknown) 100 /ul (unkn own) (unknown) (no date) (unknown) (unknown) 12.9 % (unkn own) (unknown) (no date) (unknown) (unknown) 14.1 g/dl (unkn own) (unknown) (no date) (unknown) (unknown) 1900 /ul (unkn own) (unknown) (no date) (unknown) (unknown) 25.2 % (unkn own) (unknown) (no date) (unknown) (unknown) 273 x10 3/ul (unkn own) (unknown) (no date) (unknown) (unknown) 29.7 pg (unkn own) (unknown) (no date) (unknown) (unknown) 3.7 % (unkn own) (unknown) (no date) (unknown) (unknown) 300 /ul (unkn own) (unknown) (no date) (unknown) (unknown) 33.3 % (unkn own) (unknown) (no date) (unknown) (unknown) 4.75 x10 6/ul (unkn own) (unknown) (no date) (unknown) (unknown) 4.9 % (unkn own) (unknown) (no date) (unknown) (unknown) 400 /ul (unkn own) (unknown) (no date) (unknown) (unknown) 42.3 % (unkn own) (unknown) (no date) (unknown) (unknown) 4800 /ul (unkn own) (unknown) (no date) (unknown) (unknown) 65.1 % (unkn own) (unknown) (no date) (unknown) (unknown) 7.4 x10 3/ul (unkn own) (unknown) (no date) (unknown) (unknown) 89.1 fl (unkn own) Result panel 330 (unknown) (no date) (unknown) (unknown) > 60 ml/min (unkn own) (unknown) (no date) (unknown) (unknown) > 60 ml/min (unkn own) (unknown) (no date) (unknown) (unknown) 0.4 mg/dl (unkn own) (unknown) (no date) (unknown) (unknown) 0.59 mg/dl (unkn own) (unknown) (no date) (unknown) (unknown) 1.3 (units unknown) (unknown) (unknown) (no date) (unknown) (unknown) 105 mmol/l (unkn own) (unknown) (no date) (unknown) (unknown) 110 mg/dl (unkn own) (unknown) (no date) (unknown) (unknown) 110 mg/dl (unkn own) (unknown) (no date) (unknown) (unknown) 12 mg/dl (unkn own) (unknown) (no date) (unknown) (unknown) 139 mmol/l (unkn own) (unknown) (no date) (unknown) (unknown) 18 iu/l (unkn own) (unknown) (no date) (unknown) (unknown) 20.3 (units unknown) (unknown) (unknown) (no date) (unknown) (unknown) 22 iu/l (unkn own) (unknown) (no date) (unknown) (unknown) 246 u/l (unkn own) (unknown) (no date) (unknown) (unknown) 25 mmol/l (unkn own) (unknown) (no date) (unknown) (unknown) 3.4 g/dl (unkn own) (unknown) (no date) (unknown) (unknown) 3.7 mmol/l (unkn own) (unknown) (no date) (unknown) (unknown) 4.4 g/dl (unkn own) (unknown) (no date) (unknown) (unknown) 44 u/l (unkn own) (unknown) (no date) (unknown) (unknown) 7.8 g/dl (unkn own) (unknown) (no date) (unknown) (unknown) 8.6 mg/dl (unkn own) Result panel 331 (unknown) (no (unknown) (unknown) (no value) (units (unk nown) date) unknown) (unknown) (no (unknown) (unknown) [id number] (units (unkn own) date) unknown) (unknown) (no (unknown) (unknown) 08/25/22 (units (unkno wn) date) unknown) (unknown) (no (unknown) (unknown) 1. No acute (units (un known) date) abdominal or unknown) pelvic abnormality. (unknown) (no (unknown) (unknown) [address] [place] [address] (units (unknown) date) unknown) (unknown) (no (unknown) (unknown) 2. No evidence of (units (unknown) date) small-bowel unknown) obstruction. (unknown) (no (unknown) (unknown) Accession Number: (units (unknown) date) [id number] unknown) (unknown) (no (unknown) (unknown) Adrenals: No (units (u nknown) date) hypertrophy or unknown) nodules. (unknown) (no (unknown) (unknown) After the (units (unkn own) date) administration of unknown) intravenous contrast, axial sections acquired from (unknown) (no (unknown) (unknown) Age/Sex: 36 / F (units (unknown) date) Date of Service: unknown) (unknown) (no (unknown) (unknown) [place], [place] (units ( unknown) date) [id number] unknown) (unknown) (no (unknown) (unknown) Approved by: (units (u nknown) date) noam Rose M.D. on 08/25/2022 at 16:35 (unknown) (no (unknown) (unknown) Biliary: Status (units (unknown) date) post unknown) cholecystectomy. (unknown) (no (unknown) (unknown) Bones: No (units (unkn own) date) suspicious bony unknown) lesions. No vertebral body compression fractures. (unknown) (no (unknown) (unknown) COMPARISON: (units (un known) date) [facility], unknown) CT, CT ABDOMEN PELVIS W CON, 01/17/2021, 23:35. (unknown) (no (unknown) (unknown) CT Scan Report (units (unknown) date) unknown) (unknown) (no (unknown) (unknown) : 1985 (units (unknown) date) Acct:[id number] unknown) (unknown) (no (unknown) (unknown) Dictated by: (units (u nknown) date) noam Rose M.D. on 08/25/2022 at 16:30 (unknown) (no (unknown) (unknown) FINDINGS: (units (unkn own) date) unknown) (unknown) (no (unknown) (unknown) For (units (unkno wn) date) unknown) (unknown) (no (unknown) (unknown) Genitourinary: (units (unknown) date) The bladder has no unknown) wall thickening or mass. No bladder (unknown) (no (unknown) (unknown) IMPRESSION: (units (un known) date) unknown) (unknown) (no (unknown) (unknown) INDICATIONS: ab (units (unknown) date) pain hx of sbo unknown) (unknown) (no (unknown) (unknown) Image quality: (units (unknown) date) Excellent. unknown) (unknown) (no (unknown) (unknown) [facility] (units (unknown) date) unknown) (unknown) (no (unknown) (unknown) Kidneys: No (units (un known) date) obstructive unknown) calculus or hydronephrosis. No solid mass. No cystic (unknown) (no (unknown) (unknown) Liver: The liver (units (unknown) date) has no mass or unknown) intrahepatic biliary ductal dilatation. The (unknown) (no (unknown) (unknown) Loc: ED (units (unkno wn) date) unknown) (unknown) (no (unknown) (unknown) Lung bases: Lung (units (unknown) date) bases are clear. unknown) Heart size is normal. (unknown) (no (unknown) (unknown) Miscellaneous: No (units (unknown) date) abdominal wall unknown) mass or hernia. (unknown) (no (unknown) (unknown) Nodes and (units (unkn own) date) vessels: No unknown) retroperitoneal or mesenteric adenopathy by size (unknown) (no (unknown) (unknown) Ordering (units (unkno wn) date) Provider: unknown) Vania Delgado D.O. (unknown) (no (unknown) (unknown) PELVIS: (units (unkno wn) date) unknown) (unknown) (no (unknown) (unknown) PROCEDURE: CT (units ( unknown) date) ABDOMEN PELVIS W unknown) CON (unknown) (no (unknown) (unknown) Pancreas: The (units (u nknown) date) pancreas has no unknown) mass or ductal dilatation. There is no surrounding (unknown) (no (unknown) (unknown) Patient: (units (unkno wn) date) Ni Rosales A unknown) MR#: M (unknown) (no (unknown) (unknown) Peritoneum and (units (unknown) date) bowel: The distal unknown) esophagus and stomach are normal. The small (unknown) (no (unknown) (unknown) Procedure: CT (units ( unknown) date) abdomen pelvis w unknown) con (unknown) (no (unknown) (unknown) Signed (units (unkno wn) date) unknown) (unknown) (no (unknown) (unknown) Solid organs: (units ( unknown) date) unknown) (unknown) (no (unknown) (unknown) Spleen: Normal (units (unknown) date) size. There are no unknown) masses. (unknown) (no (unknown) (unknown) TECHNIQUE: (units (unk nown) date) unknown) (unknown) (no (unknown) (unknown) a normal caliber (units (unknown) date) and appearance. unknown) The terminal ileum is normal. The large bowel (unknown) (no (unknown) (unknown) adjustment (units (unk nown) date) unknown) (unknown) (no (unknown) (unknown) and hepatic veins (units (unknown) date) are patent. unknown) (unknown) (no (unknown) (unknown) and inferior vena (units (unknown) date) cava are normal in unknown) size. (unknown) (no (unknown) (unknown) bases to the (units (u nknown) date) pubic symphysis. unknown) Coronal and sagittal reformats were performed. (unknown) (no (unknown) (unknown) bowel has (units (unkn own) date) unknown) (unknown) (no (unknown) (unknown) calcifications. (units (unknown) date) unknown) (unknown) (no (unknown) (unknown) criteria. Aorta (units (unknown) date) unknown) (unknown) (no (unknown) (unknown) definitively (units (u nknown) date) unknown) (unknown) (no (unknown) (unknown) has a (units (unkno wn) date) unknown) (unknown) (no (unknown) (unknown) inflammation. (units ( unknown) date) unknown) (unknown) (no (unknown) (unknown) mass. (units (unkno wn) date) unknown) (unknown) (no (unknown) (unknown) normal caliber (units (unknown) date) and appearance. No unknown) free fluid or air. The appendix is not (unknown) (no (unknown) (unknown) of mA and/or kV (units (unknown) date) according to unknown) patient size. (unknown) (no (unknown) (unknown) portal vein (units (un known) date) unknown) (unknown) (no (unknown) (unknown) radiation dose (units (unknown) date) reduction, the unknown) following was used: automated exposure control, (unknown) (no (unknown) (unknown) seen, however (units ( unknown) date) there is no unknown) secondary CT finding of acute appendicitis. (unknown) (no (unknown) (unknown) the lung (units (unkno wn) date) unknown) Result panel 332 (unknown) (no (unknown) (unknown) (no value) (units (unk nown) date) unknown) (unknown) (no (unknown) (unknown) (Acetaminophen (units (unknown) date) Extra Strength) unknown) Score 4-6) (unknown) (no (unknown) (unknown) 0.3 mg IM PRN PRN (units (unknown) date) (Reason: Allergic unknown) Reaction) (unknown) (no (unknown) (unknown) [id number] (units (unkno wn) date) unknown) (unknown) (no (unknown) (unknown) 08/25/22 08/25/22 (units (unknown) date) Range/Units unknown) (unknown) (no (unknown) (unknown) 08/25/22 14:15 (units (unknown) date) unknown) (unknown) (no (unknown) (unknown) 08/25/22 (units (unkno wn) date) unknown) (unknown) (no (unknown) (unknown) 1,000 mg PO Q6H PRN (unit s (unknown) date) (Reason: Pain (Scale unknown) Score 4-6)) (unknown) (no (unknown) (unknown) 10 mg PO DAILY (units (unknown) date) unknown) (unknown) (no (unknown) (unknown) 13:24 08/25/22 (units (unknown) date) unknown) (unknown) (no (unknown) (unknown) 14:15 14:15 (units (un known) date) unknown) (unknown) (no (unknown) (unknown) 14:27 08/25/22 (units (unknown) date) unknown) (unknown) (no (unknown) (unknown) 14:28 (units (unkno wn) date) unknown) (unknown) (no (unknown) (unknown) 14:29 08/25/22 (units (unknown) date) unknown) (unknown) (no (unknown) (unknown) 14:30 (units (unkno wn) date) unknown) (unknown) (no (unknown) (unknown) 14:40 08/25/22 (units (unknown) date) unknown) (unknown) (no (unknown) (unknown) 15:00 (units (unkno wn) date) unknown) (unknown) (no (unknown) (unknown) 2 puff INHALATION (units (unknown) date) Q4HR PRN (Reason: unknown) Shortness Of Breath Or Wheezing) (unknown) (no (unknown) (unknown) 20 mg PO BID (units (u nknown) date) unknown) (unknown) (no (unknown) (unknown) 4 mg PO Q8-12H PRN (units (unknown) date) (Reason: nausea and unknown) vomiting) Qty: 14 0RF (unknown) (no (unknown) (unknown) ALT 18 (<35) IU/L (units (unknown) date) unknown) (unknown) (no (unknown) (unknown) AST 22 (14-36) IU/L (unit s (unknown) date) unknown) (unknown) (no (unknown) (unknown) Age/Sex: 36 / F (units (unknown) date) unknown) (unknown) (no (unknown) (unknown) Albumin 4.4 (units (un known) date) (3.5-5.0) g/dL unknown) (unknown) (no (unknown) (unknown) Albumin/Globulin (units (unknown) date) Ratio 1.3 (1.0-2.8) unknown) (unknown) (no (unknown) (unknown) Alkaline (units (unkno wn) date) Phosphatase 44 unknown) (38-126) U/L (unknown) (no (unknown) (unknown) Allergies (units (unkn own) date) unknown) (unknown) (no (unknown) (unknown) Allergy/AdvReac (units (unknown) date) Type Severity unknown) Reaction Status Date / Time (unknown) (no (unknown) (unknown) Anesthesia (units (unk nown) date) unknown) (unknown) (no (unknown) (unknown) Anxiety (units (unkno wn) date) unknown) (unknown) (no (unknown) (unknown) BUN 12 (7-17) mg/dL (unit s (unknown) date) unknown) (unknown) (no (unknown) (unknown) BUN/Creatinine (units (unknown) date) Ratio 20.3 (6-22) unknown) (unknown) (no (unknown) (unknown) Baso # (Auto) 100 (units (unknown) date) (0-100) /uL unknown) (unknown) (no (unknown) (unknown) Baso % (Auto) 1.1 (units (unknown) date) (0-2) % unknown) (unknown) (no (unknown) (unknown) Bedside Urine (units ( unknown) date) Bilirubin - Negative unknown) (unknown) (no (unknown) (unknown) Bedside Urine (units ( unknown) date) Glucose Negative unknown) (unknown) (no (unknown) (unknown) Bedside Urine (units ( unknown) date) Ketone - Negative unknown) (unknown) (no (unknown) (unknown) Bedside Urine (units ( unknown) date) Leukocytes - unknown) Negative (unknown) (no (unknown) (unknown) Bedside Urine (units ( unknown) date) Nitrite - Negative unknown) (unknown) (no (unknown) (unknown) Bedside Urine (units ( unknown) date) Occult Blood - unknown) Negative (unknown) (no (unknown) (unknown) Bedside Urine (units ( unknown) date) Protein +/- 15 unknown) (unknown) (no (unknown) (unknown) Bedside Urine (units ( unknown) date) Urobilinogen - unknown) Negative (unknown) (no (unknown) (unknown) Bedside Urine pH (units (unknown) date) 8.0 unknown) (unknown) (no (unknown) (unknown) Blood Pressure (units (unknown) date) 105/65 unknown) (unknown) (no (unknown) (unknown) Blood Pressure (units (unknown) date) 107/63 08/25/22 unknown) 13:24 (unknown) (no (unknown) (unknown) Blood Pressure (units (unknown) date) 107 104/ unknown) (unknown) (no (unknown) (unknown) Blood Pressure (units (unknown) date) 98 96/ unknown) (unknown) (no (unknown) (unknown) Blood Pressure (units (unknown) date) unknown) (unknown) (no (unknown) (unknown) Brother Kidney (units (unknown) date) disease unknown) 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 unknown) (unknown) (no (unknown) (unknown) Chief Complaint: (units (unknown) date) Abdominal Pain unknown) (unknown) (no (unknown) (unknown) Chloride 105 (units (u nknown) date) (98-107) mmol/L unknown) (unknown) (no (unknown) (unknown) Complete Blood (units (unknown) date) Count AUTO DIFF Stat unknown) (unknown) (no (unknown) (unknown) Comprehensive (units ( unknown) date) Metabolic Panel Stat unknown) (unknown) (no (unknown) (unknown) Course (units (unkno wn) date) unknown) (unknown) (no (unknown) (unknown) Creatinine 0.59 (units (unknown) date) (0.52-1.04) mg/dL unknown) (unknown) (no (unknown) (unknown) : 1985 (units (unknown) date) Acct:[id number] unknown) (unknown) (no (unknown) (unknown) Date of Service: (units (unknown) date) 08/25/22 unknown) (unknown) (no (unknown) (unknown) Departure (units (unkn own) date) unknown) (unknown) (no (unknown) (unknown) Discharge Plan (units (unknown) date) unknown) (unknown) (no (unknown) (unknown) Documented By: KM (units (unknown) date) unknown) (unknown) (no (unknown) (unknown) ED Orders (units (unkn own) date) unknown) (unknown) (no (unknown) (unknown) ER Physician: (units ( unknown) date) Vania Delgado D.O. unknown) (unknown) (no (unknown) (unknown) Emergency Report (units (unknown) date) unknown) (unknown) (no (unknown) (unknown) 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 (units ( unknown) date) unknown) (unknown) (no (unknown) (unknown) Eos # (Auto) 300 (units (unknown) date) (0-450) /uL unknown) (unknown) (no (unknown) (unknown) Eos % (Auto) 3.7 (units (unknown) date) (2-4) % unknown) (unknown) (no (unknown) (unknown) Esterase (units (unkno wn) date) unknown) (unknown) (no (unknown) (unknown) Estimated GFR > 60 (units (unknown) date) (>60) mL/min unknown) (unknown) (no (unknown) (unknown) Exam (units (unkno wn) date) unknown) (unknown) (no (unknown) (unknown) Family History (units (unknown) date) (Updated 03/18/22 @ unknown) 20:37 by La Lorenzana) (unknown) (no (unknown) (unknown) Father Prostate (units (unknown) date) cancer unknown) (unknown) (no (unknown) (unknown) Fatigue (units (unkno wn) date) unknown) (unknown) (no (unknown) (unknown) Food sticks on (units (unknown) date) swallowing unknown) (unknown) (no (unknown) (unknown) Fractures (units (unkn own) date) unknown) (unknown) (no (unknown) (unknown) GERD (units (unkno wn) date) (gastroesophageal unknown) reflux disease) (unknown) (no (unknown) (unknown) General (units (unkno wn) date) unknown) (unknown) (no (unknown) (unknown) Globulin 3.4 (units (u nknown) date) (1.7-4.1) g/dL unknown) (unknown) (no (unknown) (unknown) Glucose 110 H (units ( unknown) date) (70-100) mg/dL unknown) (unknown) (no (unknown) (unknown) Grandmother Breast (units (unknown) date) cancer unknown) (unknown) (no (unknown) (unknown) HPI - Abdominal (units (unknown) date) Pain unknown) (unknown) (no (unknown) (unknown) HPI narrative: (units (unknown) date) unknown) (unknown) (no (unknown) (unknown) Hct 42.3 (36-46) % (units (unknown) date) unknown) (unknown) (no (unknown) (unknown) Headache (units (unkno wn) date) unknown) (unknown) (no (unknown) (unknown) Heavy menstrual (units (unknown) date) period unknown) (unknown) (no (unknown) (unknown) Hgb 14.1 (units (unkno wn) date) (12.0-16.0) g/dL unknown) (unknown) (no (unknown) (unknown) History of Present (units (unknown) date) Illness unknown) (unknown) (no (unknown) (unknown) History of brain (units (unknown) date) surgery unknown) (unknown) (no (unknown) (unknown) History of cone (units (unknown) date) biopsy of cervix unknown) (unknown) (no (unknown) (unknown) 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 (unknown) (no (unknown) (unknown) History of peptic (units (unknown) date) ulcer disease unknown) (unknown) (no (unknown) (unknown) Home Medications (units (unknown) date) unknown) (unknown) (no (unknown) (unknown) Hyperlipidemia (units (unknown) date) unknown) (unknown) (no (unknown) (unknown) INJECT CONTENTS OF (units (unknown) date) 1 PEN NEEDED FOR unknown) ANAPHYLAXIS (unknown) (no (unknown) (unknown) Initial Vital Signs (unit s (unknown) date) unknown) (unknown) (no (unknown) (unknown) Initial Vital (units ( unknown) date) Signs: unknown) (unknown) (no (unknown) (unknown) Irritable bowel (units (unknown) date) syndrome unknown) (unknown) (no (unknown) (unknown) [facility] (units (unknown) date) [address] unknown) [place] [address] (unknown) (no (unknown) (unknown) Kidney disease (units (unknown) date) unknown) (unknown) (no (unknown) (unknown) Lab Data (units (unkno wn) date) unknown) (unknown) (no (unknown) (unknown) Lab Results (units (un known) date) unknown) (unknown) (no (unknown) (unknown) Labs: (units (unkno wn) date) unknown) (unknown) (no (unknown) (unknown) Last Admin: (units (un known) date) 08/25/22 14:39 Dose: unknown) 4 mg (unknown) (no (unknown) (unknown) Lipase 246 (23-300) (unit s (unknown) date) U/L unknown) (unknown) (no (unknown) (unknown) Lipase Stat (units (un known) date) unknown) (unknown) (no (unknown) (unknown) Lymph # (Auto) 1900 (unit s (unknown) date) (3905-0092) /uL unknown) (unknown) (no (unknown) (unknown) Lymph % (Auto) 25.2 (unit s (unknown) date) (25-40) % unknown) (unknown) (no (unknown) (unknown) MCH 29.7 (26-34) PG (unit s (unknown) date) unknown) (unknown) (no (unknown) (unknown) MCHC 33.3 (30-36) % (unit s (unknown) date) unknown) (unknown) (no (unknown) (unknown) MCV 89.1 (80-100) (units (unknown) date) fL unknown) (unknown) (no (unknown) (unknown) MDM - Abdominal (units (unknown) date) Pain unknown) (unknown) (no (unknown) (unknown) Medical History (units (unknown) date) (Updated 03/18/22 @ unknown) 20:34 by La Lorenzana) (unknown) (no (unknown) (unknown) Medication (units (unk nown) date) Instructions unknown) Recorded Confirmed (unknown) (no (unknown) (unknown) Medication (units (unk nown) date) Instructions unknown) Recorded (unknown) (no (unknown) (unknown) Migraines (units (unkn own) date) unknown) (unknown) (no (unknown) (unknown) Mode of arrival: (units (unknown) date) Ambulatory unknown) (unknown) (no (unknown) (unknown) [place] # (Auto) 400 (units (unknown) date) (0-900) /uL unknown) (unknown) (no (unknown) (unknown) [place] % (Auto) 4.9 (units (unknown) date) (3-14) % unknown) (unknown) (no (unknown) (unknown) Mother Thyroid (units (unknown) date) cancer unknown) (unknown) (no (unknown) (unknown) Neut # (Auto) 4800 (units (unknown) date) (4612-8738) /uL unknown) (unknown) (no (unknown) (unknown) Neut % (Auto) 65.1 (units (unknown) date) (50-75) % unknown) (unknown) (no (unknown) (unknown) No Action (units (unkn own) date) unknown) (unknown) (no (unknown) (unknown) Ondansetron HCl (units (unknown) date) (Ondansetron 4 Mg unknown) Odt) 4 mg PO NOW PRN (unknown) (no (unknown) (unknown) Ondansetron HCl (units (unknown) date) (Ondansetron 4 Mg/2 unknown) Ml Inj) 4 mg IV NOW PRN (unknown) (no (unknown) (unknown) Ordered: (units (unkno wn) date) unknown) (unknown) (no (unknown) (unknown) Orders (units (unkno wn) date) unknown) (unknown) (no (unknown) (unknown) Ovarian cyst (units (u nknown) date) unknown) (unknown) (no (unknown) (unknown) Oxygen Delivery (units (unknown) date) Method Room Air unknown) 08/25/22 13:24 (unknown) (no (unknown) (unknown) Oxygen Delivery (units (unknown) date) Method Room Air unknown) (unknown) (no (unknown) (unknown) Oxygen Delivery (units (unknown) date) Method unknown) (unknown) (no (unknown) (unknown) PRN Reason: Nausea (units (unknown) date) And Vomiting unknown) (unknown) (no (unknown) (unknown) Patient Comments: (units (unknown) date) unknown) (unknown) (no (unknown) (unknown) Patient History (units (unknown) date) unknown) (unknown) (no (unknown) (unknown) Patient is a (units (u nknown) date) 36-year-old female unknown) has a history of polycystic kidney disease, (unknown) (no (unknown) (unknown) Patient: (units (unkno wn) date) Ni Rosales unknown) MR#: [id number] (unknown) (no (unknown) (unknown) Penicillins Allergy (unit s (unknown) date) Severe Anaphylaxis unknown) Verified 08/25/22 13:30 (unknown) (no (unknown) (unknown) Perforated ulcer (units (unknown) date) unknown) (unknown) (no (unknown) (unknown) Plt Count 273 (units ( unknown) date) (150-400) X103/uL unknown) (unknown) (no (unknown) (unknown) Point of Care (units ( unknown) date) Testing unknown) (unknown) (no (unknown) (unknown) Point of care (units ( unknown) date) testing: unknown) (unknown) (no (unknown) (unknown) Polycystic kidney (units (unknown) date) disease unknown) (unknown) (no (unknown) (unknown) Potassium 3.7 (units ( unknown) date) (3.4-5.1) mmol/L unknown) (unknown) (no (unknown) (unknown) Test (units (unknown) date) Results Negative unknown) (unknown) (no (unknown) (unknown) Prescriptions: (units (unknown) date) unknown) (unknown) (no (unknown) (unknown) Previous Rx's (units ( unknown) date) unknown) (unknown) (no (unknown) (unknown) Pulse Oximetry 100 (units (unknown) date) 08/25/22 13:24 unknown) (unknown) (no (unknown) (unknown) Pulse Oximetry 100 (units (unknown) date) 99 unknown) (unknown) (no (unknown) (unknown) Pulse Oximetry 98 (units (unknown) date) unknown) (unknown) (no (unknown) (unknown) Pulse Oximetry 99 (units (unknown) date) 98 unknown) (unknown) (no (unknown) (unknown) Pulse Oximetry 99 (units (unknown) date) unknown) (unknown) (no (unknown) (unknown) Pulse Rate 72 (units ( unknown) date) unknown) (unknown) (no (unknown) (unknown) Pulse Rate 74 77 (units (unknown) date) unknown) (unknown) (no (unknown) (unknown) Pulse Rate 76 (units ( unknown) date) 08/25/22 13:24 unknown) (unknown) (no (unknown) (unknown) Pulse Rate 76 74 (units (unknown) date) unknown) (unknown) (no (unknown) (unknown) RBC 4.75 (4.0-5.2) (units (unknown) date) X106/uL unknown) (unknown) (no (unknown) (unknown) RDW 12.9 (units (unkno wn) date) (11.6-14.8) % unknown) (unknown) (no (unknown) (unknown) Related Data (units (u nknown) date) unknown) (unknown) (no (unknown) (unknown) Respiratory Rate 20 (unit s (unknown) date) 08/25/22 13:24 unknown) (unknown) (no (unknown) (unknown) Respiratory Rate 20 (unit s (unknown) date) unknown) (unknown) (no (unknown) (unknown) Respiratory Rate (units (unknown) date) unknown) (unknown) (no (unknown) (unknown) Restless leg (units (u nknown) date) syndrome unknown) (unknown) (no (unknown) (unknown) Rheumatic fever (units (unknown) date) unknown) (unknown) (no (unknown) (unknown) Signed By: (units (unk nown) date) unknown) (unknown) (no (unknown) (unknown) Sister Kidney (units ( unknown) date) disease unknown) (unknown) (no (unknown) (unknown) Smoking Status: (units (unknown) date) Never smoker unknown) (unknown) (no (unknown) (unknown) Social History (units (unknown) date) (Reviewed 09/02/21 @ unknown) 13:24 by Jose Rafael Oleary MD) (unknown) (no (unknown) (unknown) Sodium 139 (units (unk nown) date) (137-145) mmol/L unknown) (unknown) (no (unknown) (unknown) Source: patient (units (unknown) date) unknown) (unknown) (no (unknown) (unknown) Stated Complaint: (units (unknown) date) blood in stool, abd unknown) pain, cant keep food down (unknown) (no (unknown) (unknown) Status post (units (un known) date) appendectomy unknown) (unknown) (no (unknown) (unknown) Status post (units (un known) date) cholecystectomy unknown) (unknown) (no (unknown) (unknown) Substance Use Type: (unit s (unknown) date) marijuana unknown) (unknown) (no (unknown) (unknown) Surgical History (units (unknown) date) (Updated 03/18/22 @ unknown) 20:34 by La Lorenzana) (unknown) (no (unknown) (unknown) Temperature 97.5 F (units (unknown) date) L 08/25/22 13:24 unknown) (unknown) (no (unknown) (unknown) Temperature 97.5 F (units (unknown) date) L unknown) (unknown) (no (unknown) (unknown) Temperature (units (un known) date) unknown) (unknown) (no (unknown) (unknown) There is very (units ( unknown) date) little stool. She unknown) has pain that moves all over abdomen she (unknown) (no (unknown) (unknown) Time Seen by (units (u nknown) date) Provider: 08/25/22 unknown) 14:37 (unknown) (no (unknown) (unknown) Total Bilirubin 0.4 (unit s (unknown) date) (0.2-1.3) mg/dL unknown) (unknown) (no (unknown) (unknown) Total Protein 7.8 (units (unknown) date) (6.3-8.2) g/dL unknown) (unknown) (no (unknown) (unknown) Ulcerative colitis (units (unknown) date) unknown) (unknown) (no (unknown) (unknown) Urine Dip (units (unkn own) date) unknown) (unknown) (no (unknown) (unknown) Urine Specific (units (unknown) date) Morton 1.010 unknown) (unknown) (no (unknown) (unknown) Vital Signs - 8 hr (units (unknown) date) unknown) (unknown) (no (unknown) (unknown) Vital Signs (units (un known) date) unknown) (unknown) (no (unknown) (unknown) Vital signs: (units (u nknown) date) unknown) (unknown) (no (unknown) (unknown) WBC 7.4 (4.5-11.0) (units (unknown) date) X103/uL unknown) (unknown) (no (unknown) (unknown) [Embedded Image Not (unit s (unknown) date) Available] unknown) (unknown) (no (unknown) (unknown) acetaminophen 500 (units (unknown) date) mg tablet 1,000 mg unknown) PO Q6H PRN Pain (Scale 01/18/21 08/25/22 (unknown) (no (unknown) (unknown) acetaminophen (units ( unknown) date) [Acetaminophen Extra unknown) Strength] 500 mg Tablet (unknown) (no (unknown) (unknown) aerosol inhaler (units (unknown) date) Shortness Of Breath unknown) Or Wheezing (unknown) (no (unknown) (unknown) albuterol sulfate (units (unknown) date) 90 mcg/actuation 2 unknown) puff inhalation Q4HR PRN 01/18/21 08/25/22 (unknown) (no (unknown) (unknown) albuterol sulfate (units (unknown) date) 90 mcg/actuation Hfa unknown) Aerosol Inhaler (unknown) (no (unknown) (unknown) alcohol intake (units (unknown) date) frequency: other unknown) (unknown) (no (unknown) (unknown) alcohol intake: (units (unknown) date) never unknown) (unknown) (no (unknown) (unknown) appendectomy, (units ( unknown) date) cholecystectomy, unknown) sections, small-bowel obstructions (unknown) (no (unknown) (unknown) aspirin Allergy (units (unknown) date) Severe Anaphylaxis unknown) Verified 08/25/22 13:30 (unknown) (no (unknown) (unknown) clavulanic acid (units (unknown) date) Allergy Severe unknown) Anaphylaxis Verified 08/25/22 13:30 (unknown) (no (unknown) (unknown) currently is very (units (unknown) date) uncomfortable. She unknown) feels a little dizzy and lightheaded. She (unknown) (no (unknown) (unknown) epinephrine 0.3 (units (unknown) date) mg/0.3 mL 0.3 mg IM unknown) PRN PRN Allergic Reaction 01/18/21 08/25/22 (unknown) (no (unknown) (unknown) epinephrine 0.3 (units (unknown) date) mg/0.3 mL unknown) auto-injector (unknown) (no (unknown) (unknown) fentanyl Allergy (units (unknown) date) Severe Anaphylaxis unknown) Verified 08/25/22 13:30 (unknown) (no (unknown) (unknown) fluticasone [From (units (unknown) date) Flonase] AdvReac unknown) Intermediate Agitated Verified 08/25/22 13:30 (unknown) (no (unknown) (unknown) found. She did have (unit s (unknown) date) partial small-bowel unknown) obstruction 2020. She reports that (unknown) (no (unknown) (unknown) household members: (units (unknown) date) spouse and children unknown) (unknown) (no (unknown) (unknown) hydrocodone AdvReac (unit s (unknown) date) Severe Vomiting unknown) Verified 08/25/22 13:30 (unknown) (no (unknown) (unknown) injection, (units (unk nown) date) auto-injector unknown) (unknown) (no (unknown) (unknown) is not on any (units ( unknown) date) unknown) (unknown) (no (unknown) (unknown) loratadine 10 mg (units (unknown) date) tablet (Claritin) 10 unknown) mg PO DAILY 01/18/21 08/25/22 (unknown) (no (unknown) (unknown) loratadine (units (unk nown) date) [Claritin] 10 mg unknown) Tablet (unknown) (no (unknown) (unknown) methylprednisolone (units (unknown) date) Allergy Severe unknown) Agitated Verified 08/25/22 13:30 (unknown) (no (unknown) (unknown) morphine Allergy (units (unknown) date) Severe Hives unknown) Verified 08/25/22 13:30 (unknown) (no (unknown) (unknown) omeprazole 20 mg (units (unknown) date) Tablet,Delayed unknown) Release (Dr/Ec) (unknown) (no (unknown) (unknown) omeprazole 20 mg (units (unknown) date) tablet,delayed 20 mg unknown) PO BID 03/07/21 08/25/22 (unknown) (no (unknown) (unknown) ondansetron 4 mg (units (unknown) date) disintegrating 4 mg unknown) PO Q8-12H PRN nausea and 02/12/22 (unknown) (no (unknown) (unknown) ondansetron 4 mg (units (unknown) date) tablet,disintegratin unknown) g (unknown) (no (unknown) (unknown) over the last 24 (units (unknown) date) hours she is had 6 unknown) episodes of bright red blood per rectum. (unknown) (no (unknown) (unknown) presenting today (units (unknown) date) with ongoing unknown) abdominal discomfort and rectal bleeding. She (unknown) (no (unknown) (unknown) release (units (unkno wn) date) unknown) (unknown) (no (unknown) (unknown) reports that she (units (unknown) date) has had 2 unknown) colonoscopies in the last 4 years no abnormality (unknown) (no (unknown) (unknown) tablet vomiting #14 (unit s (unknown) date) tabs unknown) Result panel 333 (unknown) (no (unknown) (unknown) (no value) (units (unk nown) date) unknown) (unknown) (no (unknown) (unknown) (Acetaminophen (units (unknown) date) Extra Strength) unknown) Score 4-6) (unknown) (no (unknown) (unknown) 0.3 mg IM PRN PRN (units (unknown) date) (Reason: Allergic unknown) Reaction) (unknown) (no (unknown) (unknown) [id number] (units (unkno wn) date) unknown) (unknown) (no (unknown) (unknown) 08/25/22 08/25/22 (units (unknown) date) Range/Units unknown) (unknown) (no (unknown) (unknown) 08/25/22 14:15 (units (unknown) date) unknown) (unknown) (no (unknown) (unknown) 08/25/22 (units (unkno wn) date) unknown) (unknown) (no (unknown) (unknown) 1,000 mg PO Q6H PRN (unit s (unknown) date) (Reason: Pain (Scale unknown) Score 4-6)) (unknown) (no (unknown) (unknown) 10 mg PO DAILY (units (unknown) date) unknown) (unknown) (no (unknown) (unknown) 12.8 g/dl (unkno wn) date) (unknown) (no (unknown) (unknown) 13:24 08/25/22 (units (unknown) date) unknown) (unknown) (no (unknown) (unknown) 14:15 14:15 (units (un known) date) unknown) (unknown) (no (unknown) (unknown) 14:27 08/25/22 (units (unknown) date) unknown) (unknown) (no (unknown) (unknown) 14:28 (units (unkno wn) date) unknown) (unknown) (no (unknown) (unknown) 14:29 08/25/22 (units (unknown) date) unknown) (unknown) (no (unknown) (unknown) 14:30 (units (unkno wn) date) unknown) (unknown) (no (unknown) (unknown) 14:40 08/25/22 (units (unknown) date) unknown) (unknown) (no (unknown) (unknown) 15:00 (units (unkno wn) date) unknown) (unknown) (no (unknown) (unknown) 2 puff INHALATION (units (unknown) date) Q4HR PRN (Reason: unknown) Shortness Of Breath Or Wheezing) (unknown) (no (unknown) (unknown) 20 mg PO BID (units (u nknown) date) unknown) (unknown) (no (unknown) (unknown) 38.0 % (unkno wn) date) (unknown) (no (unknown) (unknown) 4 mg PO Q8-12H PRN (units (unknown) date) (Reason: nausea and unknown) vomiting) Qty: 14 0RF (unknown) (no (unknown) (unknown) ABDOMEN: Soft, (units (unknown) date) diffusely tender unknown) over both right and left (unknown) (no (unknown) (unknown) ALT 18 (<35) IU/L (units (unknown) date) unknown) (unknown) (no (unknown) (unknown) AST 22 (14-36) IU/L (unit s (unknown) date) unknown) (unknown) (no (unknown) (unknown) Age/Sex: 36 / F (units (unknown) date) unknown) (unknown) (no (unknown) (unknown) Albumin 4.4 (units (un known) date) (3.5-5.0) g/dL unknown) (unknown) (no (unknown) (unknown) Albumin/Globulin (units (unknown) date) Ratio 1.3 (1.0-2.8) unknown) (unknown) (no (unknown) (unknown) Alkaline (units (unkno wn) date) Phosphatase 44 unknown) (38-126) U/L (unknown) (no (unknown) (unknown) Allergies (units (unkn own) date) unknown) (unknown) (no (unknown) (unknown) Allergy/AdvReac (units (unknown) date) Type Severity unknown) Reaction Status Date / Time (unknown) (no (unknown) (unknown) Anesthesia (units (unk nown) date) unknown) (unknown) (no (unknown) (unknown) Anxiety (units (unkno wn) date) unknown) (unknown) (no (unknown) (unknown) BUN 12 (7-17) mg/dL (unit s (unknown) date) unknown) (unknown) (no (unknown) (unknown) BUN/Creatinine (units (unknown) date) Ratio 20.3 (6-22) unknown) (unknown) (no (unknown) (unknown) Baso # (Auto) 100 (units (unknown) date) (0-100) /uL unknown) (unknown) (no (unknown) (unknown) Baso % (Auto) 1.1 (units (unknown) date) (0-2) % unknown) (unknown) (no (unknown) (unknown) Bedside Urine (units ( unknown) date) Bilirubin - Negative unknown) (unknown) (no (unknown) (unknown) Bedside Urine (units ( unknown) date) Glucose Negative unknown) (unknown) (no (unknown) (unknown) Bedside Urine (units ( unknown) date) Ketone - Negative unknown) (unknown) (no (unknown) (unknown) Bedside Urine (units ( unknown) date) Leukocytes - unknown) Negative (unknown) (no (unknown) (unknown) Bedside Urine (units ( unknown) date) Nitrite - Negative unknown) (unknown) (no (unknown) (unknown) Bedside Urine (units ( unknown) date) Occult Blood - unknown) Negative (unknown) (no (unknown) (unknown) Bedside Urine (units ( unknown) date) Protein +/- 15 unknown) (unknown) (no (unknown) (unknown) Bedside Urine (units ( unknown) date) Urobilinogen - unknown) Negative (unknown) (no (unknown) (unknown) Bedside Urine pH (units (unknown) date) 8.0 unknown) (unknown) (no (unknown) (unknown) Blood Pressure (units (unknown) date) 105/65 unknown) (unknown) (no (unknown) (unknown) Blood Pressure (units (unknown) date) 107/63 08/25/22 unknown) 13:24 (unknown) (no (unknown) (unknown) Blood Pressure (units (unknown) date) 10763 104/ unknown) (unknown) (no (unknown) (unknown) Blood Pressure (units (unknown) date) 96 unknown) (unknown) (no (unknown) (unknown) Blood Pressure (units (unknown) date) unknown) (unknown) (no (unknown) (unknown) Blood pressure is (units (unknown) date) soft in the low 100s unknown) she appears quite uncomfortable. She (unknown) (no (unknown) (unknown) Brother Kidney (units (unknown) date) disease unknown) (unknown) (no (unknown) (unknown) CARDIOVASCULAR: (units (unknown) date) Regular rate and unknown) rhythm without murmurs, rubs or gallops. 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 unknown) (unknown) (no (unknown) (unknown) Chief Complaint: (units (unknown) date) Abdominal Pain unknown) (unknown) (no (unknown) (unknown) Chloride 105 (units (u nknown) date) (98-107) mmol/L unknown) (unknown) (no (unknown) (unknown) Complete Blood (units (unknown) date) Count AUTO DIFF Stat unknown) (unknown) (no (unknown) (unknown) Comprehensive (units ( unknown) date) Metabolic Panel Stat unknown) (unknown) (no (unknown) (unknown) Course (units (unkno wn) date) unknown) (unknown) (no (unknown) (unknown) Creatinine 0.59 (units (unknown) date) (0.52-1.04) mg/dL unknown) (unknown) (no (unknown) (unknown) : 1985 (units (unknown) date) Acct:[id number] unknown) (unknown) (no (unknown) (unknown) Date of Service: (units (unknown) date) 08/25/22 unknown) (unknown) (no (unknown) (unknown) Departure (units (unkn own) date) unknown) (unknown) (no (unknown) (unknown) Discharge Plan (units (unknown) date) unknown) (unknown) (no (unknown) (unknown) Documented By: KM (units (unknown) date) unknown) (unknown) (no (unknown) (unknown) ED Orders (units (unkn own) date) unknown) (unknown) (no (unknown) (unknown) ER Physician: (units ( unknown) date) Vania Delgado D.O. unknown) (unknown) (no (unknown) (unknown) EXTREMITIES: Normal (unit s (unknown) date) range of motion, no unknown) clubbing or edema. Neurovascularly (unknown) (no (unknown) (unknown) Emergency Report (units (unknown) date) unknown) (unknown) (no (unknown) (unknown) 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 (units ( unknown) date) unknown) (unknown) (no (unknown) (unknown) Eos # (Auto) 300 (units (unknown) date) (0-450) /uL unknown) (unknown) (no (unknown) (unknown) Eos % (Auto) 3.7 (units (unknown) date) (2-4) % unknown) (unknown) (no (unknown) (unknown) Esterase (units (unkno wn) date) unknown) (unknown) (no (unknown) (unknown) Estimated GFR > 60 (units (unknown) date) (>60) mL/min unknown) (unknown) (no (unknown) (unknown) Exam (units (unkno wn) date) unknown) (unknown) (no (unknown) (unknown) Family History (units (unknown) date) (Reviewed 08/25/22 @ unknown) 15:53 by Vania Delgado DO) (unknown) (no (unknown) (unknown) Father Prostate (units (unknown) date) cancer unknown) (unknown) (no (unknown) (unknown) Fatigue (units (unkno wn) date) unknown) (unknown) (no (unknown) (unknown) Food sticks on (units (unknown) date) swallowing unknown) (unknown) (no (unknown) (unknown) Fractures (units (unkn own) date) unknown) (unknown) (no (unknown) (unknown) GENERAL: Alert (units (unknown) date) 36-year-old female unknown) appears very uncomfortable and in no acute (unknown) (no (unknown) (unknown) GERD (units (unkno wn) date) (gastroesophageal unknown) reflux disease) (unknown) (no (unknown) (unknown) : No CVA (units (unk nown) date) tenderness unknown) (unknown) (no (unknown) (unknown) General (units (unkno wn) date) unknown) (unknown) (no (unknown) (unknown) Globulin 3.4 (units (u nknown) date) (1.7-4.1) g/dL unknown) (unknown) (no (unknown) (unknown) Glucose 110 H (units ( unknown) date) (70-100) mg/dL unknown) (unknown) (no (unknown) (unknown) Grandmother Breast (units (unknown) date) cancer unknown) (unknown) (no (unknown) (unknown) HEENT: Head (units (un known) date) atraumatic,EOMI, unknown) pupils reactive, face symmetric, moist mucous (unknown) (no (unknown) (unknown) HPI - Abdominal (units (unknown) date) Pain unknown) (unknown) (no (unknown) (unknown) HPI narrative: (units (unknown) date) unknown) (unknown) (no (unknown) (unknown) Hct 42.3 (36-46) % (units (unknown) date) unknown) (unknown) (no (unknown) (unknown) Headache (units (unkno wn) date) unknown) (unknown) (no (unknown) (unknown) Heavy menstrual (units (unknown) date) period unknown) (unknown) (no (unknown) (unknown) Hgb 14.1 (units (unkno wn) date) (12.0-16.0) g/dL unknown) (unknown) (no (unknown) (unknown) History of Present (units (unknown) date) Illness unknown) (unknown) (no (unknown) (unknown) History of brain (units (unknown) date) surgery unknown) (unknown) (no (unknown) (unknown) History of cone (units (unknown) date) biopsy of cervix unknown) (unknown) (no (unknown) (unknown) 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 (unknown) (no (unknown) (unknown) History of peptic (units (unknown) date) ulcer disease unknown) (unknown) (no (unknown) (unknown) Home Medications (units (unknown) date) unknown) (unknown) (no (unknown) (unknown) Hyperlipidemia (units (unknown) date) unknown) (unknown) (no (unknown) (unknown) INJECT CONTENTS OF (units (unknown) date) 1 PEN NEEDED FOR unknown) ANAPHYLAXIS (unknown) (no (unknown) (unknown) Initial Vital Signs (unit s (unknown) date) unknown) (unknown) (no (unknown) (unknown) Initial Vital (units ( unknown) date) Signs: unknown) (unknown) (no (unknown) (unknown) Irritable bowel (units (unknown) date) syndrome unknown) (unknown) (no (unknown) (unknown) [facility] (units (unknown) date) [address] unknown) [place] [address] (unknown) (no (unknown) (unknown) Kidney disease (units (unknown) date) unknown) (unknown) (no (unknown) (unknown) Lab Data (units (unkno wn) date) unknown) (unknown) (no (unknown) (unknown) Lab Results (units (un known) date) unknown) (unknown) (no (unknown) (unknown) Labs: (units (unkno wn) date) unknown) (unknown) (no (unknown) (unknown) Last Admin: (units (un known) date) 08/25/22 14:39 Dose: unknown) 4 mg (unknown) (no (unknown) (unknown) Lipase 246 (23-300) (unit s (unknown) date) U/L unknown) (unknown) (no (unknown) (unknown) Lipase Stat (units (un known) date) unknown) (unknown) (no (unknown) (unknown) Lymph # (Auto) 1900 (unit s (unknown) date) (7532-3690) /uL unknown) (unknown) (no (unknown) (unknown) Lymph % (Auto) 25.2 (unit s (unknown) date) (25-40) % unknown) (unknown) (no (unknown) (unknown) MCH 29.7 (26-34) PG (unit s (unknown) date) unknown) (unknown) (no (unknown) (unknown) MCHC 33.3 (30-36) % (unit s (unknown) date) unknown) (unknown) (no (unknown) (unknown) MCV 89.1 (80-100) (units (unknown) date) fL unknown) (unknown) (no (unknown) (unknown) MDM - Abdominal (units (unknown) date) Pain unknown) (unknown) (no (unknown) (unknown) MDM Narrative (units ( unknown) date) unknown) (unknown) (no (unknown) (unknown) Medical History (units (unknown) date) (Reviewed 08/25/22 @ unknown) 15:53 by Vania Delgado DO) (unknown) (no (unknown) (unknown) Medical decision (units (unknown) date) making narrative: unknown) (unknown) (no (unknown) (unknown) Medication (units (unk nown) date) Instructions unknown) Recorded Confirmed (unknown) (no (unknown) (unknown) Medication (units (unk nown) date) Instructions unknown) Recorded (unknown) (no (unknown) (unknown) Migraines (units (unkn own) date) unknown) (unknown) (no (unknown) (unknown) Mode of arrival: (units (unknown) date) Ambulatory unknown) (unknown) (no (unknown) (unknown) [place] # (Auto) 400 (units (unknown) date) (0-900) /uL unknown) (unknown) (no (unknown) (unknown) [place] % (Auto) 4.9 (units (unknown) date) (3-14) % unknown) (unknown) (no (unknown) (unknown) Mother Thyroid (units (unknown) date) cancer unknown) (unknown) (no (unknown) (unknown) NEUROLOGICAL: Alert (unit s (unknown) date) and oriented unknown) x4.Normal gait and speech. (unknown) (no (unknown) (unknown) Neut # (Auto) 4800 (units (unknown) date) (7188-1463) /uL unknown) (unknown) (no (unknown) (unknown) Neut % (Auto) 65.1 (units (unknown) date) (50-75) % unknown) (unknown) (no (unknown) (unknown) No Action (units (unkn own) date) unknown) (unknown) (no (unknown) (unknown) Ondansetron HCl (units (unknown) date) (Ondansetron 4 Mg unknown) Odt) 4 mg PO NOW PRN (unknown) (no (unknown) (unknown) Ondansetron HCl (units (unknown) date) (Ondansetron 4 Mg/2 unknown) Ml Inj) 4 mg IV NOW PRN (unknown) (no (unknown) (unknown) Ordered: (units (unkno wn) date) unknown) (unknown) (no (unknown) (unknown) Orders (units (unkno wn) date) unknown) (unknown) (no (unknown) (unknown) Ovarian cyst (units (u nknown) date) unknown) (unknown) (no (unknown) (unknown) Oxygen Delivery (units (unknown) date) Method Room Air unknown) 08/25/22 13:24 (unknown) (no (unknown) (unknown) Oxygen Delivery (units (unknown) date) Method Room Air unknown) (unknown) (no (unknown) (unknown) Oxygen Delivery (units (unknown) date) Method unknown) (unknown) (no (unknown) (unknown) PRN Reason: Nausea (units (unknown) date) And Vomiting unknown) (unknown) (no (unknown) (unknown) Patient 36-year-old (unit s (unknown) date) female who has had unknown) previous colonoscopies for rectal (unknown) (no (unknown) (unknown) Patient Comments: (units (unknown) date) unknown) (unknown) (no (unknown) (unknown) Patient History (units (unknown) date) unknown) (unknown) (no (unknown) (unknown) Patient is a (units (u nknown) date) 36-year-old female unknown) has a history of polycystic kidney disease, (unknown) (no (unknown) (unknown) Patient: (units (unkno wn) date) Ni Rosales A unknown) MR#: [id number] (unknown) (no (unknown) (unknown) Penicillins Allergy (unit s (unknown) date) Severe Anaphylaxis unknown) Verified 08/25/22 13:30 (unknown) (no (unknown) (unknown) Perforated ulcer (units (unknown) date) unknown) (unknown) (no (unknown) (unknown) Plt Count 273 (units ( unknown) date) (150-400) X103/uL unknown) (unknown) (no (unknown) (unknown) Point of Care (units ( unknown) date) Testing unknown) (unknown) (no (unknown) (unknown) Point of care (units ( unknown) date) testing: unknown) (unknown) (no (unknown) (unknown) Polycystic kidney (units (unknown) date) disease unknown) (unknown) (no (unknown) (unknown) Potassium 3.7 (units ( unknown) date) (3.4-5.1) mmol/L unknown) (unknown) (no (unknown) (unknown) Test (units (unknown) date) Results Negative unknown) (unknown) (no (unknown) (unknown) Prescriptions: (units (unknown) date) unknown) (unknown) (no (unknown) (unknown) Previous Rx's (units ( unknown) date) unknown) (unknown) (no (unknown) (unknown) Pulse Oximetry 100 (units (unknown) date) 08/25/22 13:24 unknown) (unknown) (no (unknown) (unknown) Pulse Oximetry 100 (units (unknown) date) 99 unknown) (unknown) (no (unknown) (unknown) Pulse Oximetry 98 (units (unknown) date) unknown) (unknown) (no (unknown) (unknown) Pulse Oximetry 99 (units (unknown) date) 98 unknown) (unknown) (no (unknown) (unknown) Pulse Oximetry 99 (units (unknown) date) unknown) (unknown) (no (unknown) (unknown) Pulse Rate 72 (units ( unknown) date) unknown) (unknown) (no (unknown) (unknown) Pulse Rate 74 77 (units (unknown) date) unknown) (unknown) (no (unknown) (unknown) Pulse Rate 76 (units ( unknown) date) 08/25/22 13:24 unknown) (unknown) (no (unknown) (unknown) Pulse Rate 76 74 (units (unknown) date) unknown) (unknown) (no (unknown) (unknown) RBC 4.75 (4.0-5.2) (units (unknown) date) X106/uL unknown) (unknown) (no (unknown) (unknown) RDW 12.9 (units (unkno wn) date) (11.6-14.8) % unknown) (unknown) (no (unknown) (unknown) RECTAL: No external (unit s (unknown) date) hemorrhoids no blood unknown) no stool in vault (unknown) (no (unknown) (unknown) RESPIRATORY: Breath (unit s (unknown) date) sounds equal unknown) bilaterally, no wheezes rales or rhonchi. (unknown) (no (unknown) (unknown) ROS Unobtainable: (units (unknown) date) All systems reviewed unknown) + are unremarkable except as noted in HPI (unknown) (no (unknown) (unknown) Related Data (units (u nknown) date) unknown) (unknown) (no (unknown) (unknown) Respiratory Rate 20 (unit s (unknown) date) 08/25/22 13:24 unknown) (unknown) (no (unknown) (unknown) Respiratory Rate 20 (unit s (unknown) date) unknown) (unknown) (no (unknown) (unknown) Respiratory Rate (units (unknown) date) unknown) (unknown) (no (unknown) (unknown) Restless leg (units (u nknown) date) syndrome unknown) (unknown) (no (unknown) (unknown) Review of Systems (units (unknown) date) unknown) (unknown) (no (unknown) (unknown) Rheumatic fever (units (unknown) date) unknown) (unknown) (no (unknown) (unknown) SKIN: Warm, dry, no (unit s (unknown) date) laceration, no unknown) petechiae, no rashes or lesions. (unknown) (no (unknown) (unknown) Signed By: (units (unk nown) date) unknown) (unknown) (no (unknown) (unknown) Sister Kidney (units ( unknown) date) disease unknown) (unknown) (no (unknown) (unknown) Smoking Status: (units (unknown) date) Never smoker unknown) (unknown) (no (unknown) (unknown) Social History (units (unknown) date) (Reviewed 08/25/22 @ unknown) 15:53 by Vania Delgado DO) (unknown) (no (unknown) (unknown) Sodium 139 (units (unk nown) date) (137-145) mmol/L unknown) (unknown) (no (unknown) (unknown) Source: patient (units (unknown) date) unknown) (unknown) (no (unknown) (unknown) Stated Complaint: (units (unknown) date) blood in stool, abd unknown) pain, cant keep food down (unknown) (no (unknown) (unknown) Status post (units (un known) date) appendectomy unknown) (unknown) (no (unknown) (unknown) Status post (units (un known) date) cholecystectomy unknown) (unknown) (no (unknown) (unknown) Substance Use Type: (unit s (unknown) date) marijuana unknown) (unknown) (no (unknown) (unknown) Surgical History (units (unknown) date) (Reviewed 08/25/22 @ unknown) 15:53 by Vania Delgado DO) (unknown) (no (unknown) (unknown) Temperature 97.5 F (units (unknown) date) L 08/25/22 13:24 unknown) (unknown) (no (unknown) (unknown) Temperature 97.5 F (units (unknown) date) L unknown) (unknown) (no (unknown) (unknown) Temperature (units (un known) date) unknown) (unknown) (no (unknown) (unknown) There is very (units ( unknown) date) little stool. She unknown) has pain that moves all over abdomen she (unknown) (no (unknown) (unknown) Time Seen by (units (u nknown) date) Provider: 08/25/22 unknown) 14:37 (unknown) (no (unknown) (unknown) Total Bilirubin 0.4 (unit s (unknown) date) (0.2-1.3) mg/dL unknown) (unknown) (no (unknown) (unknown) Total Protein 7.8 (units (unknown) date) (6.3-8.2) g/dL unknown) (unknown) (no (unknown) (unknown) Ulcerative colitis (units (unknown) date) unknown) (unknown) (no (unknown) (unknown) Urine Dip (units (unkn own) date) unknown) (unknown) (no (unknown) (unknown) Urine Specific (units (unknown) date) [place] 1.010 unknown) (unknown) (no (unknown) (unknown) Vital Signs - 8 hr (units (unknown) date) unknown) (unknown) (no (unknown) (unknown) Vital Signs (units (un known) date) unknown) (unknown) (no (unknown) (unknown) Vital signs: (units (u nknown) date) unknown) (unknown) (no (unknown) (unknown) WBC 7.4 (4.5-11.0) (units (unknown) date) X103/uL unknown) (unknown) (no (unknown) (unknown) [Embedded Image Not (unit s (unknown) date) Available] unknown) (unknown) (no (unknown) (unknown) acetaminophen 500 (units (unknown) date) mg tablet 1,000 mg unknown) PO Q6H PRN Pain (Scale 01/18/21 08/25/22 (unknown) (no (unknown) (unknown) acetaminophen (units ( unknown) date) [Acetaminophen Extra unknown) Strength] 500 mg Tablet (unknown) (no (unknown) (unknown) aerosol inhaler (units (unknown) date) Shortness Of Breath unknown) Or Wheezing (unknown) (no (unknown) (unknown) albuterol sulfate (units (unknown) date) 90 mcg/actuation 2 unknown) puff inhalation Q4HR PRN 01/18/21 08/25/22 (unknown) (no (unknown) (unknown) albuterol sulfate (units (unknown) date) 90 mcg/actuation Hfa unknown) Aerosol Inhaler (unknown) (no (unknown) (unknown) alcohol intake (units (unknown) date) frequency: other unknown) (unknown) (no (unknown) (unknown) alcohol intake: (units (unknown) date) never unknown) (unknown) (no (unknown) (unknown) and below (units (unkn own) date) unknown) (unknown) (no (unknown) (unknown) appendectomy, (units ( unknown) date) cholecystectomy, unknown) sections, small-bowel obstructions (unknown) (no (unknown) (unknown) aspirin Allergy (units (unknown) date) Severe Anaphylaxis unknown) Verified 08/25/22 13:30 (unknown) (no (unknown) (unknown) bleeding. Had gross (unit s (unknown) date) serosanguineous unknown) liquid which is sent down for GI panel. (unknown) (no (unknown) (unknown) clavulanic acid (units (unknown) date) Allergy Severe unknown) Anaphylaxis Verified 08/25/22 13:30 (unknown) (no (unknown) (unknown) currently is very (units (unknown) date) uncomfortable. She unknown) feels a little dizzy and lightheaded. She (unknown) (no (unknown) (unknown) distress. (units (unkn own) date) unknown) (unknown) (no (unknown) (unknown) epinephrine 0.3 (units (unknown) date) mg/0.3 mL 0.3 mg IM unknown) PRN PRN Allergic Reaction 01/18/21 08/25/22 (unknown) (no (unknown) (unknown) epinephrine 0.3 (units (unknown) date) mg/0.3 mL unknown) auto-injector (unknown) (no (unknown) (unknown) fentanyl Allergy (units (unknown) date) Severe Anaphylaxis unknown) Verified 08/25/22 13:30 (unknown) (no (unknown) (unknown) fluticasone [From (units (unknown) date) Flonase] AdvReac unknown) Intermediate Agitated Verified 08/25/22 13:30 (unknown) (no (unknown) (unknown) found. She did have (unit s (unknown) date) partial small-bowel unknown) obstruction 2020. She reports that (unknown) (no (unknown) (unknown) household members: (units (unknown) date) spouse and children unknown) (unknown) (no (unknown) (unknown) hydrocodone AdvReac (unit s (unknown) date) Severe Vomiting unknown) Verified 08/25/22 13:30 (unknown) (no (unknown) (unknown) injection, (units (unk nown) date) auto-injector unknown) (unknown) (no (unknown) (unknown) intact (units (unkno wn) date) unknown) (unknown) (no (unknown) (unknown) is not on any (units ( unknown) date) anticoagulation or unknown) antiplatelet medication. She has not out. No (unknown) (no (unknown) (unknown) loratadine 10 mg (units (unknown) date) tablet (Claritin) 10 unknown) mg PO DAILY 01/18/21 08/25/22 (unknown) (no (unknown) (unknown) loratadine (units (unk nown) date) [Claritin] 10 mg unknown) Tablet (unknown) (no (unknown) (unknown) membranes (units (unkn own) date) unknown) (unknown) (no (unknown) (unknown) methylprednisolone (units (unknown) date) Allergy Severe unknown) Agitated Verified 08/25/22 13:30 (unknown) (no (unknown) (unknown) morphine Allergy (units (unknown) date) Severe Hives unknown) Verified 08/25/22 13:30 (unknown) (no (unknown) (unknown) omeprazole 20 mg (units (unknown) date) Tablet,Delayed unknown) Release (Dr/Ec) (unknown) (no (unknown) (unknown) omeprazole 20 mg (units (unknown) date) tablet,delayed 20 mg unknown) PO BID 03/07/21 08/25/22 (unknown) (no (unknown) (unknown) ondansetron 4 mg (units (unknown) date) disintegrating 4 mg unknown) PO Q8-12H PRN nausea and 02/12/22 (unknown) (no (unknown) (unknown) ondansetron 4 mg (units (unknown) date) tablet,disintegratin unknown) g (unknown) (no (unknown) (unknown) one else is sick at (unit s (unknown) date) home. unknown) (unknown) (no (unknown) (unknown) over the last 24 (units (unknown) date) hours she is had 6 unknown) episodes of bright red blood per rectum. (unknown) (no (unknown) (unknown) presenting today (units (unknown) date) with ongoing unknown) abdominal discomfort and rectal bleeding. She (unknown) (no (unknown) (unknown) previously (units (unk nown) date) small-bowel unknown) obstruction. Blood work is otherwise overall reassuring (unknown) (no (unknown) (unknown) release (units (unkno wn) date) unknown) (unknown) (no (unknown) (unknown) reports that she (units (unknown) date) has had 2 unknown) colonoscopies in the last 4 years no abnormality (unknown) (no (unknown) (unknown) tablet vomiting #14 (unit s (unknown) date) tabs unknown) (unknown) (no (unknown) (unknown) without sign of SYLVESTER (unit s (unknown) date) or anemia. Repeat unknown) H+H is also stable. Result panel 334 (unknown) (no date) (unknown) (unknown) 1.0 mmol/l (unkn own) Result panel 335 (unknown) (no date) (unknown) (unknown) Not Detected (units ( unknown) unknown) Result panel 336 (unknown) (no (unknown) (unknown) (no value) (units (unk nown) date) unknown) (unknown) (no (unknown) (unknown) (Acetaminophen (units (unknown) date) Extra Strength) unknown) Score 4-6) (unknown) (no (unknown) (unknown) TRAMADOL DOES (units (unknown) date) NOT CONTAIN TYLENOL unknown) (unknown) (no (unknown) (unknown) *Continue to take (units (unknown) date) medications as unknown) directed (unknown) (no (unknown) (unknown) *Follow up with (units (unknown) date) your primary care unknown) provider in 2-3 days or call [phone] (unknown) (no (unknown) (unknown) *Return to ER if (units (unknown) date) you should have unknown) persistent bleeding worsening pain dizziness (unknown) (no (unknown) (unknown) *What to do: At (units (unknown) date) this time increase unknown) fluids as tolerated. Recommend Gatorade or (unknown) (no (unknown) (unknown) *You have been (units (unknown) date) diagnosed with unknown) rectal bleeding probable viral gastroenteritis (unknown) (no (unknown) (unknown) 0.3 mg IM PRN PRN (units (unknown) date) (Reason: Allergic unknown) Reaction) (unknown) (no (unknown) (unknown) [id number] (units (unkno wn) date) unknown) (unknown) (no (unknown) (unknown) 08/25/22 08/25/22 (units (unknown) date) 08/25/22 Range/Units unknown) (unknown) (no (unknown) (unknown) 08/25/22 08/25/22 (units (unknown) date) Range/Units unknown) (unknown) (no (unknown) (unknown) 08/25/22 14:15 (units (unknown) date) unknown) (unknown) (no (unknown) (unknown) 08/25/22 15:41 (units (unknown) date) unknown) (unknown) (no (unknown) (unknown) 08/25/22 15:43 (units (unknown) date) unknown) (unknown) (no (unknown) (unknown) 08/25/22 15:47 (units (unknown) date) unknown) (unknown) (no (unknown) (unknown) 08/25/22 (units (unkno wn) date) unknown) (unknown) (no (unknown) (unknown) 1,000 mg PO Q6H PRN (unit s (unknown) date) (Reason: Pain (Scale unknown) Score 4-6)) (unknown) (no (unknown) (unknown) 1. No acute (units (un known) date) abdominal or pelvic unknown) abnormality. (unknown) (no (unknown) (unknown) 1. You have been (units (unknown) date) prescribed narcotic unknown) medications, it does have (unknown) (no (unknown) (unknown) 10 mg PO DAILY (units (unknown) date) unknown) (unknown) (no (unknown) (unknown) 13:24 08/25/22 (units (unknown) date) unknown) (unknown) (no (unknown) (unknown) 14:15 14:15 14:15 (units (unknown) date) unknown) (unknown) (no (unknown) (unknown) 14:27 08/25/22 (units (unknown) date) unknown) (unknown) (no (unknown) (unknown) 14:28 (units (unkno wn) date) unknown) (unknown) (no (unknown) (unknown) 14:29 08/25/22 (units (unknown) date) unknown) (unknown) (no (unknown) (unknown) 14:30 (units (unkno wn) date) unknown) (unknown) (no (unknown) (unknown) 14:40 08/25/22 (units (unknown) date) unknown) (unknown) (no (unknown) (unknown) 15:00 08/25/22 (units (unknown) date) unknown) (unknown) (no (unknown) (unknown) 15:00 (units (unkno wn) date) unknown) (unknown) (no (unknown) (unknown) 15:20 08/25/22 (units (unknown) date) unknown) (unknown) (no (unknown) (unknown) 15:20 (units (unkno wn) date) unknown) (unknown) (no (unknown) (unknown) 15:30 08/25/22 (units (unknown) date) unknown) (unknown) (no (unknown) (unknown) 15:40 08/25/22 (units (unknown) date) unknown) (unknown) (no (unknown) (unknown) 15:40 (units (unkno wn) date) unknown) (unknown) (no (unknown) (unknown) 15:41 15:47 (units (un known) date) unknown) (unknown) (no (unknown) (unknown) 16:00 08/25/22 (units (unknown) date) unknown) (unknown) (no (unknown) (unknown) 16:20 08/25/22 (units (unknown) date) unknown) (unknown) (no (unknown) (unknown) 16:20 (units (unkno wn) date) unknown) (unknown) (no (unknown) (unknown) 16:35 08/25/22 (units (unknown) date) unknown) (unknown) (no (unknown) (unknown) 16:37 08/25/22 (units (unknown) date) unknown) (unknown) (no (unknown) (unknown) 16:37 (units (unkno wn) date) unknown) (unknown) (no (unknown) (unknown) 16:40 08/25/22 (units (unknown) date) unknown) (unknown) (no (unknown) (unknown) 16:40 (units (unkno wn) date) unknown) (unknown) (no (unknown) (unknown) 17:00 08/25/22 (units (unknown) date) unknown) (unknown) (no (unknown) (unknown) 17:21 08/25/22 (units (unknown) date) unknown) (unknown) (no (unknown) (unknown) 17:21 (units (unkno wn) date) unknown) (unknown) (no (unknown) (unknown) 17:30 08/25/22 (units (unknown) date) unknown) (unknown) (no (unknown) (unknown) 18:00 (units (unkno wn) date) unknown) (unknown) (no (unknown) (unknown) 2 puff INHALATION (units (unknown) date) Q4HR PRN (Reason: unknown) Shortness Of Breath Or Wheezing) (unknown) (no (unknown) (unknown) 2. No evidence of (units (unknown) date) small-bowel unknown) obstruction.? (unknown) (no (unknown) (unknown) 2. Please (units (unkn own) date) understand that we unknown) cannot provide further refills of narcotics, (unknown) (no (unknown) (unknown) 20 mg PO BID (units (u nknown) date) unknown) (unknown) (no (unknown) (unknown) 3. While on these (units (unknown) date) medications you unknown) cannot drive or operate heavy machinery. (unknown) (no (unknown) (unknown) 4 mg PO Q8-12H PRN (units (unknown) date) (Reason: nausea and unknown) vomiting) Qty: 14 0RF (unknown) (no (unknown) (unknown) 4. You cannot sign (units (unknown) date) legal documents or unknown) perform any duties such as this. (unknown) (no (unknown) (unknown) 5. As long as (units ( unknown) date) you're taking opiate unknown) pain medications he should also be taking a (unknown) (no (unknown) (unknown) ? (units (unkno wn) date) unknown) (unknown) (no (unknown) (unknown) ABDOMEN: Soft, (units (unknown) date) diffusely tender unknown) over both right and left (unknown) (no (unknown) (unknown) ALT (<35) IU/L (units (unknown) date) unknown) (unknown) (no (unknown) (unknown) ALT 18 (<35) IU/L (units (unknown) date) unknown) (unknown) (no (unknown) (unknown) AST (14-36) IU/L (units (unknown) date) unknown) (unknown) (no (unknown) (unknown) AST 22 (14-36) IU/L (unit s (unknown) date) unknown) (unknown) (no (unknown) (unknown) Activity (units (unkno wn) date) Restrictions/Additio unknown) nal Instructions: (unknown) (no (unknown) (unknown) Admin: 08/25/22 (units (unknown) date) 15:58 Dose: 1,000 unknown) mls/hr (unknown) (no (unknown) (unknown) Adrenals: No (units (u nknown) date) hypertrophy or unknown) nodules. (unknown) (no (unknown) (unknown) After the (units (unkn own) date) administration of unknown) intravenous contrast, axial sections acquired from (unknown) (no (unknown) (unknown) Age/Sex: 36 / F (units (unknown) date) unknown) (unknown) (no (unknown) (unknown) Albumin (3.5-5.0) (units (unknown) date) g/dL unknown) (unknown) (no (unknown) (unknown) Albumin 4.4 (units (un known) date) (3.5-5.0) g/dL unknown) (unknown) (no (unknown) (unknown) Albumin/Globulin (units (unknown) date) Ratio (1.0-2.8) unknown) (unknown) (no (unknown) (unknown) Albumin/Globulin (units (unknown) date) Ratio 1.3 (1.0-2.8) unknown) (unknown) (no (unknown) (unknown) Alkaline (units (unkno wn) date) Phosphatase (38-126) unknown) U/L (unknown) (no (unknown) (unknown) Alkaline (units (unkno wn) date) Phosphatase 44 unknown) (38-126) U/L (unknown) (no (unknown) (unknown) Allergies (units (unkn own) date) unknown) (unknown) (no (unknown) (unknown) Allergy/AdvReac (units (unknown) date) Type Severity unknown) Reaction Status Date / Time (unknown) (no (unknown) (unknown) Anesthesia (units (unk nown) date) unknown) (unknown) (no (unknown) (unknown) Anxiety (units (unkno wn) date) unknown) (unknown) (no (unknown) (unknown) BUN (7-17) mg/dL (units (unknown) date) unknown) (unknown) (no (unknown) (unknown) BUN 12 (7-17) mg/dL (unit s (unknown) date) unknown) (unknown) (no (unknown) (unknown) BUN/Creatinine (units (unknown) date) Ratio (6-22) unknown) (unknown) (no (unknown) (unknown) BUN/Creatinine (units (unknown) date) Ratio 20.3 (6-22) unknown) (unknown) (no (unknown) (unknown) Baso # (Auto) (units ( unknown) date) (0-100) /uL unknown) (unknown) (no (unknown) (unknown) Baso # (Auto) 100 (units (unknown) date) (0-100) /uL unknown) (unknown) (no (unknown) (unknown) Baso % (Auto) (0-2) (unit s (unknown) date) % unknown) (unknown) (no (unknown) (unknown) Baso % (Auto) 1.1 (units (unknown) date) (0-2) % unknown) (unknown) (no (unknown) (unknown) Bedside Urine (units ( unknown) date) Bilirubin - Negative unknown) (unknown) (no (unknown) (unknown) Bedside Urine (units ( unknown) date) Glucose Negative unknown) (unknown) (no (unknown) (unknown) Bedside Urine (units ( unknown) date) Ketone - Negative unknown) (unknown) (no (unknown) (unknown) Bedside Urine (units ( unknown) date) Leukocytes - unknown) Negative (unknown) (no (unknown) (unknown) Bedside Urine (units ( unknown) date) Nitrite - Negative unknown) (unknown) (no (unknown) (unknown) Bedside Urine (units ( unknown) date) Occult Blood - unknown) Negative (unknown) (no (unknown) (unknown) Bedside Urine (units ( unknown) date) Protein +/- 15 unknown) (unknown) (no (unknown) (unknown) Bedside Urine (units ( unknown) date) Urobilinogen - unknown) Negative (unknown) (no (unknown) (unknown) Bedside Urine pH (units (unknown) date) 8.0 unknown) (unknown) (no (unknown) (unknown) Biliary: Status (units (unknown) date) post unknown) cholecystectomy. (unknown) (no (unknown) (unknown) Blood Pressure (units (unknown) date) 101/62 unknown) (unknown) (no (unknown) (unknown) Blood Pressure (units (unknown) date) 101/70 unknown) (unknown) (no (unknown) (unknown) Blood Pressure (units (unknown) date) 104/64 95/60 unknown) (unknown) (no (unknown) (unknown) Blood Pressure (units (unknown) date) 105/65 unknown) (unknown) (no (unknown) (unknown) Blood Pressure (units (unknown) date) 107/63 03// unknown) 13:24 (unknown) (no (unknown) (unknown) Blood Pressure (units (unknown) date) 107/63 104/62 unknown) (unknown) (no (unknown) (unknown) Blood Pressure (units (unknown) date) 110/71 unknown) (unknown) (no (unknown) (unknown) Blood Pressure (units (unknown) date) 91/59 L unknown) (unknown) (no (unknown) (unknown) Blood Pressure (units (unknown) date) 95/57 L unknown) (unknown) (no (unknown) (unknown) Blood Pressure (units (unknown) date) 98/62 96/63 unknown) (unknown) (no (unknown) (unknown) Blood Pressure (units (unknown) date) 99/61 116/66 unknown) (unknown) (no (unknown) (unknown) Blood Pressure (units (unknown) date) unknown) (unknown) (no (unknown) (unknown) Blood pressure is (units (unknown) date) soft in the low 100s unknown) she appears quite uncomfortable. She (unknown) (no (unknown) (unknown) Bones:? No (units (unk nown) date) suspicious bony unknown) lesions.? No vertebral body compression fractures.? (unknown) (no (unknown) (unknown) Bright red rectal (units (unknown) date) bleeding, unknown) Gastroenteritis (unknown) (no (unknown) (unknown) Brother Kidney (units (unknown) date) disease unknown) (unknown) (no (unknown) (unknown) C. difficile Tox (units (unknown) date) (PCR) (Not Detect) unknown) (unknown) (no (unknown) (unknown) C. difficile Tox (units (unknown) date) (PCR) Not detected unknown) (Not Detect) (unknown) (no (unknown) (unknown) CARDIOVASCULAR: (units (unknown) date) Regular rate and unknown) rhythm without murmurs, rubs or gallops. (unknown) (no (unknown) (unknown) [facility], [facility], CT unknown) ABDOMEN PELVIS W CON, 01/17/2021, 23:35. (unknown) (no (unknown) (unknown) CONTROLLED (units (unk nown) date) SUBSTANCE DISCHARGE unknown) (Narcotoic/benzodiaz epine/Flexeril/Phene rgan) (unknown) (no (unknown) (unknown) CT abdomen pelvis w (unit s (unknown) date) con Stat unknown) (unknown) (no (unknown) (unknown) CT scan - (units (unkn own) date) abdomen/pelvis: unknown) (unknown) (no (unknown) (unknown) Calcium (8.4-10.2) (units (unknown) date) mg/dL unknown) (unknown) (no (unknown) (unknown) Calcium 8.6 (units (un known) date) (8.4-10.2) mg/dL unknown) (unknown) (no (unknown) (unknown) Campylobacter (PCR) (unit s (unknown) date) (Not Detect) unknown) (unknown) (no (unknown) (unknown) Campylobacter (PCR) (unit s (unknown) date) Not detected (Not unknown) Detect) (unknown) (no (unknown) (unknown) Carbon Dioxide (units (unknown) date) (22-32) mmol/L unknown) (unknown) (no (unknown) (unknown) Carbon Dioxide 25 (units (unknown) date) (22-32) mmol/L unknown) (unknown) (no (unknown) (unknown) 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 unknown) (unknown) (no (unknown) (unknown) Chief Complaint: (units (unknown) date) Abdominal Pain unknown) (unknown) (no (unknown) (unknown) Chloride (98-107) (units (unknown) date) mmol/L unknown) (unknown) (no (unknown) (unknown) Chloride 105 (units (u nknown) date) (98-107) mmol/L unknown) (unknown) (no (unknown) (unknown) Clinical (units (unkno wn) date) Impression: unknown) (unknown) (no (unknown) (unknown) Complete Blood (units (unknown) date) Count AUTO DIFF Stat unknown) (unknown) (no (unknown) (unknown) Comprehensive (units ( unknown) date) Metabolic Panel Stat unknown) (unknown) (no (unknown) (unknown) Course (units (unkno wn) date) unknown) (unknown) (no (unknown) (unknown) Creatinine (units (unk nown) date) (0.52-1.04) mg/dL unknown) (unknown) (no (unknown) (unknown) Creatinine 0.59 (units (unknown) date) (0.52-1.04) mg/dL unknown) (unknown) (no (unknown) (unknown) : 1985 (units (unknown) date) Acct:[id number] unknown) (unknown) (no (unknown) (unknown) Date of Service: (units (unknown) date) 08/25/22 unknown) (unknown) (no (unknown) (unknown) Departure (units (unkn own) date) unknown) (unknown) (no (unknown) (unknown) Dictated by: Mandeep (unit s (unknown) date) Jen Valdivia on unknown) 08/25/2022 at 16:30 ? (unknown) (no (unknown) (unknown) Differential (units (u nknown) date) diagnosis includes unknown) Crohn's disease, ulcerative colitis, polyp, (unknown) (no (unknown) (unknown) Dilaudid. She is (units (unknown) date) had 2 previous unknown) colonoscopies in last couple of years. (unknown) (no (unknown) (unknown) Diphenhydramine HCl (unit s (unknown) date) (Diphenhydramine 50 unknown) Mg/Ml Vial) 25 mg IV NOW ONE (unknown) (no (unknown) (unknown) Discharge Plan (units (unknown) date) unknown) (unknown) (no (unknown) (unknown) Discontinued (units (u nknown) date) Medications unknown) (unknown) (no (unknown) (unknown) Documented By: BS (units (unknown) date) unknown) (unknown) (no (unknown) (unknown) Documented By: KM (units (unknown) date) unknown) (unknown) (no (unknown) (unknown) ED Orders (units (unkn own) date) unknown) (unknown) (no (unknown) (unknown) ER Physician: (units ( unknown) date) Vania Delgado D.O. unknown) (unknown) (no (unknown) (unknown) EXTREMITIES: Normal (unit s (unknown) date) range of motion, no unknown) clubbing or edema. Neurovascularly (unknown) (no (unknown) (unknown) Emergency Report (units (unknown) date) unknown) (unknown) (no (unknown) (unknown) 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 (units ( unknown) date) unknown) (unknown) (no (unknown) (unknown) Eos # (Auto) (units (u nknown) date) (0-450) /uL unknown) (unknown) (no (unknown) (unknown) Eos # (Auto) 300 (units (unknown) date) (0-450) /uL unknown) (unknown) (no (unknown) (unknown) Eos % (Auto) (2-4) (units (unknown) date) % unknown) (unknown) (no (unknown) (unknown) Eos % (Auto) 3.7 (units (unknown) date) (2-4) % unknown) (unknown) (no (unknown) (unknown) Esterase (units (unkno wn) date) unknown) (unknown) (no (unknown) (unknown) Estimated GFR > 60 (units (unknown) date) (>60) mL/min unknown) (unknown) (no (unknown) (unknown) Estimated GFR (>60) (unit s (unknown) date) mL/min unknown) (unknown) (no (unknown) (unknown) Exam (units (unkno wn) date) unknown) (unknown) (no (unknown) (unknown) FINDINGS: (units (unkn own) date) unknown) (unknown) (no (unknown) (unknown) Family History (units (unknown) date) (Reviewed 08/25/22 @ unknown) 15:53 by Vania Delgado DO) (unknown) (no (unknown) (unknown) Father Prostate (units (unknown) date) cancer unknown) (unknown) (no (unknown) (unknown) Fatigue (units (unkno wn) date) unknown) (unknown) (no (unknown) (unknown) Food sticks on (units (unknown) date) swallowing unknown) (unknown) (no (unknown) (unknown) For (units (unkno wn) date) unknown) (unknown) (no (unknown) (unknown) Fractures (units (unkn own) date) unknown) (unknown) (no (unknown) (unknown) GENERAL: Alert (units (unknown) date) 36-year-old female unknown) appears very uncomfortable and in no acute (unknown) (no (unknown) (unknown) GERD (units (unkno wn) date) (gastroesophageal unknown) reflux disease) (unknown) (no (unknown) (unknown) GI Panel (Film (units (unknown) date) Array) Stat unknown) (unknown) (no (unknown) (unknown) : No CVA (units (unk nown) date) tenderness unknown) (unknown) (no (unknown) (unknown) Gatorade product. (units (unknown) date) May increase diet as unknown) tolerated. If you her dizzy or (unknown) (no (unknown) (unknown) General (units (unkno wn) date) unknown) (unknown) (no (unknown) (unknown) Genitourinary:? The (unit s (unknown) date) bladder has no wall unknown) thickening or mass. No bladder (unknown) (no (unknown) (unknown) Globulin (1.7-4.1) (units (unknown) date) g/dL unknown) (unknown) (no (unknown) (unknown) Globulin 3.4 (units (u nknown) date) (1.7-4.1) g/dL unknown) (unknown) (no (unknown) (unknown) Glucose (70-100) (units (unknown) date) mg/dL unknown) (unknown) (no (unknown) (unknown) Glucose 110 H (units ( unknown) date) (70-100) mg/dL unknown) (unknown) (no (unknown) (unknown) Grandmother Breast (units (unknown) date) cancer unknown) (unknown) (no (unknown) (unknown) HEENT: Head (units (un known) date) atraumatic,EOMI, unknown) pupils reactive, face symmetric, moist mucous (unknown) (no (unknown) (unknown) HPI - Abdominal (units (unknown) date) Pain unknown) (unknown) (no (unknown) (unknown) HPI narrative: (units (unknown) date) unknown) (unknown) (no (unknown) (unknown) Hct 38.0 (36-46) % (units (unknown) date) unknown) (unknown) (no (unknown) (unknown) Hct 42.3 (36-46) % (units (unknown) date) unknown) (unknown) (no (unknown) (unknown) Headache (units (unkno wn) date) unknown) (unknown) (no (unknown) (unknown) Heavy menstrual (units (unknown) date) period unknown) (unknown) (no (unknown) (unknown) Hemoglobin and (units (unknown) date) Hematocrit Stat unknown) (unknown) (no (unknown) (unknown) Hgb 12.8 (units (unkno wn) date) (12.0-16.0) g/dL unknown) (unknown) (no (unknown) (unknown) Hgb 14.1 (units (unkno wn) date) (12.0-16.0) g/dL unknown) (unknown) (no (unknown) (unknown) History of Present (units (unknown) date) Illness unknown) (unknown) (no (unknown) (unknown) History of brain (units (unknown) date) surgery unknown) (unknown) (no (unknown) (unknown) History of cone (units (unknown) date) biopsy of cervix unknown) (unknown) (no (unknown) (unknown) 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 (units (u nknown) date) unknown) (unknown) (no (unknown) (unknown) INDICATIONS:? ab (units (unknown) date) pain hx of sbo unknown) (unknown) (no (unknown) (unknown) INJECT CONTENTS OF (units (unknown) date) 1 PEN NEEDED FOR unknown) ANAPHYLAXIS (unknown) (no (unknown) (unknown) Image quality:? (units (unknown) date) Excellent.? unknown) (unknown) (no (unknown) (unknown) Imaging Data (units (u nknown) date) unknown) (unknown) (no (unknown) (unknown) Initial Vital Signs (unit s (unknown) date) unknown) (unknown) (no (unknown) (unknown) Initial Vital (units ( unknown) date) Signs: unknown) (unknown) (no (unknown) (unknown) Instructions: DI (units (unknown) date) for Viral unknown) Gastroenteritis -- Adult, DI for Rectal Bleeding (unknown) (no (unknown) (unknown) Irritable bowel (units (unknown) date) syndrome unknown) (unknown) (no (unknown) (unknown) [facility] (units (unknown) date) [address] [place] [address] unknown) [place] [address] (unknown) (no (unknown) (unknown) Kidney disease (units (unknown) date) unknown) (unknown) (no (unknown) (unknown) Kidneys: No (units (un known) date) obstructive calculus unknown) or hydronephrosis.? No solid mass. No cystic (unknown) (no (unknown) (unknown) Lab Data (units (unkno wn) date) unknown) (unknown) (no (unknown) (unknown) Lab Results (units (un known) date) unknown) (unknown) (no (unknown) (unknown) Labs: (units (unkno wn) date) unknown) (unknown) (no (unknown) (unknown) Lactate (0.7-2.1) (units (unknown) date) mmol/L unknown) (unknown) (no (unknown) (unknown) Lactate (Lactic (units (unknown) date) Acid) Stat unknown) (unknown) (no (unknown) (unknown) Lactate 1.0 (units (un known) date) (0.7-2.1) mmol/L unknown) (unknown) (no (unknown) (unknown) Last Admin: (units (un known) date) 08/25/22 14:39 Dose: unknown) 4 mg (unknown) (no (unknown) (unknown) Last Admin: (units (un known) date) 08/25/22 15:58 Dose: unknown) 0.5 mg (unknown) (no (unknown) (unknown) Last Admin: (units (un known) date) 08/25/22 15:58 Dose: unknown) 25 mg (unknown) (no (unknown) (unknown) Last Admin: (units (un known) date) 08/25/22 15:58 Dose: unknown) 4 mg (unknown) (no (unknown) (unknown) Last Infusion: (units (unknown) date) 08/25/22 17:17 Dose: unknown) 0 mls/hr (unknown) (no (unknown) (unknown) Lipase (23-300) U/L (unit s (unknown) date) unknown) (unknown) (no (unknown) (unknown) Lipase 246 (23-300) (unit s (unknown) date) U/L unknown) (unknown) (no (unknown) (unknown) Lipase Stat (units (un known) date) unknown) (unknown) (no (unknown) (unknown) Liver: The liver (units (unknown) date) has no mass or unknown) intrahepatic biliary ductal dilatation. The (unknown) (no (unknown) (unknown) Lung bases:? Lung (units (unknown) date) bases are clear.? unknown) Heart size is normal. (unknown) (no (unknown) (unknown) Lymph # (Auto) (units (unknown) date) (8867-1464) /uL unknown) (unknown) (no (unknown) (unknown) Lymph # (Auto) 1900 (unit s (unknown) date) (9823-0992) /uL unknown) (unknown) (no (unknown) (unknown) Lymph % (Auto) (units (unknown) date) (25-40) % unknown) (unknown) (no (unknown) (unknown) Lymph % (Auto) 25.2 (unit s (unknown) date) (25-40) % unknown) (unknown) (no (unknown) (unknown) MCH (26-34) PG (units (unknown) date) unknown) (unknown) (no (unknown) (unknown) MCH 29.7 (26-34) PG (unit s (unknown) date) unknown) (unknown) (no (unknown) (unknown) MCHC (30-36) % (units (unknown) date) unknown) (unknown) (no (unknown) (unknown) MCHC 33.3 (30-36) % (unit s (unknown) date) unknown) (unknown) (no (unknown) (unknown) MCV (80-100) fL (units (unknown) date) unknown) (unknown) (no (unknown) (unknown) MCV 89.1 (80-100) (units (unknown) date) fL unknown) (unknown) (no (unknown) (unknown) MDM - Abdominal (units (unknown) date) Pain unknown) (unknown) (no (unknown) (unknown) MDM Narrative (units ( unknown) date) unknown) (unknown) (no (unknown) (unknown) Medical History (units (unknown) date) (Reviewed 08/25/22 @ unknown) 15:53 by Vania Delgado DO) (unknown) (no (unknown) (unknown) Medical decision (units (unknown) date) making narrative: unknown) (unknown) (no (unknown) (unknown) Medication (units (unk nown) date) Instructions unknown) Recorded Confirmed (unknown) (no (unknown) (unknown) Medication (units (unk nown) date) Instructions unknown) Recorded (unknown) (no (unknown) (unknown) Migraines (units (unkn own) date) unknown) (unknown) (no (unknown) (unknown) Miscellaneous:? No (units (unknown) date) abdominal wall mass unknown) or hernia. (unknown) (no (unknown) (unknown) Mode of arrival: (units (unknown) date) Ambulatory unknown) (unknown) (no (unknown) (unknown) [place] # (Auto) (units ( unknown) date) (0-900) /uL unknown) (unknown) (no (unknown) (unknown) [place] # (Auto) 400 (units (unknown) date) (0-900) /uL unknown) (unknown) (no (unknown) (unknown) [place] % (Auto) (units ( unknown) date) (3-14) % unknown) (unknown) (no (unknown) (unknown) [place] % (Auto) 4.9 (units (unknown) date) (3-14) % unknown) (unknown) (no (unknown) (unknown) Mother Thyroid (units (unknown) date) cancer unknown) (unknown) (no (unknown) (unknown) NEUROLOGICAL: Alert (unit s (unknown) date) and oriented unknown) x4.Normal gait and speech. (unknown) (no (unknown) (unknown) Neut # (Auto) (units ( unknown) date) (6426-3475) /uL unknown) (unknown) (no (unknown) (unknown) Neut # (Auto) 4800 (units (unknown) date) (7785-2663) /uL unknown) (unknown) (no (unknown) (unknown) Neut % (Auto) (units ( unknown) date) (50-75) % unknown) (unknown) (no (unknown) (unknown) Neut % (Auto) 65.1 (units (unknown) date) (50-75) % unknown) (unknown) (no (unknown) (unknown) No Action (units (unkn own) date) unknown) (unknown) (no (unknown) (unknown) Nodes and vessels:? (unit s (unknown) date) No retroperitoneal unknown) or mesenteric adenopathy by size (unknown) (no (unknown) (unknown) [place] 1 tablet (units (unknown) date) every 6 hours if unknown) needed for severe pain (unknown) (no (unknown) (unknown) ONE (units (unkno wn) date) unknown) (unknown) (no (unknown) (unknown) Ondansetron HCl (units (unknown) date) (Ondansetron 4 Mg unknown) Odt Prepack) 1 bottle MISC SEEINSTR ONE (unknown) (no (unknown) (unknown) Ondansetron HCl (units (unknown) date) (Ondansetron 4 Mg unknown) Odt) 4 mg PO NOW PRN (unknown) (no (unknown) (unknown) Ondansetron HCl (units (unknown) date) (Ondansetron 4 Mg/2 unknown) Ml Inj) 4 mg IV NOW ONE (unknown) (no (unknown) (unknown) Ondansetron HCl (units (unknown) date) (Ondansetron 4 Mg/2 unknown) Ml Inj) 4 mg IV NOW PRN (unknown) (no (unknown) (unknown) Ordered: (units (unkno wn) date) unknown) (unknown) (no (unknown) (unknown) Orders (units (unkno wn) date) unknown) (unknown) (no (unknown) (unknown) Ovarian cyst (units (u nknown) date) unknown) (unknown) (no (unknown) (unknown) Oxycodone/Acetamino (unit s (unknown) date) phen (Oxycodone/Apap unknown) 5/325 Prepack) 1 bottle MISC SEEINSTR (unknown) (no (unknown) (unknown) Oxygen Delivery (units (unknown) date) Method Room Air unknown) 08/25/22 13:24 (unknown) (no (unknown) (unknown) Oxygen Delivery (units (unknown) date) Method Room Air unknown) (unknown) (no (unknown) (unknown) Oxygen Delivery (units (unknown) date) Method unknown) (unknown) (no (unknown) (unknown) PELVIS:? (units (unkno wn) date) unknown) (unknown) (no (unknown) (unknown) PRN Reason: Nausea (units (unknown) date) And Vomiting unknown) (unknown) (no (unknown) (unknown) PROCEDURE:? CT (units (unknown) date) ABDOMEN PELVIS W CON unknown) (unknown) (no (unknown) (unknown) Pancreas: The (units (u nknown) date) pancreas has no mass unknown) or ductal dilatation. There is no surrounding (unknown) (no (unknown) (unknown) Patient 36-year-old (unit s (unknown) date) female who has had unknown) previous colonoscopies for rectal (unknown) (no (unknown) (unknown) Patient Comments: (units (unknown) date) unknown) (unknown) (no (unknown) (unknown) Patient (units (unkno wn) date) Disposition: Home unknown) (unknown) (no (unknown) (unknown) Patient History (units (unknown) date) unknown) (unknown) (no (unknown) (unknown) Patient is a (units (u nknown) date) 36-year-old female unknown) has a history of polycystic kidney disease, (unknown) (no (unknown) (unknown) Patient: (units (unkno wn) date) Ni [place]ales A unknown) MR#: [id number] (unknown) (no (unknown) (unknown) Penicillins Allergy (unit s (unknown) date) Severe Anaphylaxis unknown) Verified 08/25/22 13:30 (unknown) (no (unknown) (unknown) Perforated ulcer (units (unknown) date) unknown) (unknown) (no (unknown) (unknown) Peritoneum and (units (unknown) date) bowel:? The distal unknown) esophagus and stomach are normal.? The small (unknown) (no (unknown) (unknown) Plt Count (150-400) (unit s (unknown) date) X103/uL unknown) (unknown) (no (unknown) (unknown) Plt Count 273 (units ( unknown) date) (150-400) X103/uL unknown) (unknown) (no (unknown) (unknown) Point of Care (units ( unknown) date) Testing unknown) (unknown) (no (unknown) (unknown) Point of care (units ( unknown) date) testing: unknown) (unknown) (no (unknown) (unknown) Polycystic kidney (units (unknown) date) disease unknown) (unknown) (no (unknown) (unknown) Potassium (3.4-5.1) (unit s (unknown) date) mmol/L unknown) (unknown) (no (unknown) (unknown) Potassium 3.7 (units ( unknown) date) (3.4-5.1) mmol/L unknown) (unknown) (no (unknown) (unknown) Test (units (unknown) date) Results Negative unknown) (unknown) (no (unknown) (unknown) Prescriptions: (units (unknown) date) unknown) (unknown) (no (unknown) (unknown) Previous Rx's (units ( unknown) date) unknown) (unknown) (no (unknown) (unknown) Pulse Oximetry 100 (units (unknown) date) 08/25/22 13:24 unknown) (unknown) (no (unknown) (unknown) Pulse Oximetry 100 (units (unknown) date) 97 unknown) (unknown) (no (unknown) (unknown) Pulse Oximetry 100 (units (unknown) date) 99 unknown) (unknown) (no (unknown) (unknown) Pulse Oximetry 100 (units (unknown) date) unknown) (unknown) (no (unknown) (unknown) Pulse Oximetry 94 (units (unknown) date) 96 unknown) (unknown) (no (unknown) (unknown) Pulse Oximetry 96 (units (unknown) date) 100 unknown) (unknown) (no (unknown) (unknown) Pulse Oximetry 98 (units (unknown) date) 98 unknown) (unknown) (no (unknown) (unknown) Pulse Oximetry 99 (units (unknown) date) 98 unknown) (unknown) (no (unknown) (unknown) Pulse Oximetry 99 (units (unknown) date) unknown) (unknown) (no (unknown) (unknown) Pulse Rate 64 81 (units (unknown) date) unknown) (unknown) (no (unknown) (unknown) Pulse Rate 64 (units ( unknown) date) unknown) (unknown) (no (unknown) (unknown) Pulse Rate 65 67 (units (unknown) date) unknown) (unknown) (no (unknown) (unknown) Pulse Rate 68 62 (units (unknown) date) unknown) (unknown) (no (unknown) (unknown) Pulse Rate 72 67 (units (unknown) date) unknown) (unknown) (no (unknown) (unknown) Pulse Rate 72 (units ( unknown) date) unknown) (unknown) (no (unknown) (unknown) Pulse Rate 74 77 (units (unknown) date) unknown) (unknown) (no (unknown) (unknown) Pulse Rate 75 64 (units (unknown) date) unknown) (unknown) (no (unknown) (unknown) Pulse Rate 76 (units ( unknown) date) 08/25/22 13:24 unknown) (unknown) (no (unknown) (unknown) Pulse Rate 76 74 (units (unknown) date) unknown) (unknown) (no (unknown) (unknown) Pulse Rate 76 (units ( unknown) date) unknown) (unknown) (no (unknown) (unknown) Pulse Rate 77 (units ( unknown) date) unknown) (unknown) (no (unknown) (unknown) RBC (4.0-5.2) (units ( unknown) date) X106/uL unknown) (unknown) (no (unknown) (unknown) RBC 4.75 (4.0-5.2) (units (unknown) date) X106/uL unknown) (unknown) (no (unknown) (unknown) RDW (11.6-14.8) % (units (unknown) date) unknown) (unknown) (no (unknown) (unknown) RDW 12.9 (units (unkno wn) date) (11.6-14.8) % unknown) (unknown) (no (unknown) (unknown) RECTAL: No external (unit s (unknown) date) hemorrhoids no blood unknown) no stool in vault (unknown) (no (unknown) (unknown) RESPIRATORY: Breath (unit s (unknown) date) sounds equal unknown) bilaterally, no wheezes rales or rhonchi. (unknown) (no (unknown) (unknown) ROS Unobtainable: (units (unknown) date) All systems reviewed unknown) + are unremarkable except as noted in HPI (unknown) (no (unknown) (unknown) Radiologist's (units ( unknown) date) Impression: unknown) (unknown) (no (unknown) (unknown) Related Data (units (u nknown) date) unknown) (unknown) (no (unknown) (unknown) Respiratory Rate 20 (unit s (unknown) date) 08/25/22 13:24 unknown) (unknown) (no (unknown) (unknown) Respiratory Rate 20 (unit s (unknown) date) unknown) (unknown) (no (unknown) (unknown) Respiratory Rate (units (unknown) date) unknown) (unknown) (no (unknown) (unknown) Restless leg (units (u nknown) date) syndrome unknown) (unknown) (no (unknown) (unknown) Review of Systems (units (unknown) date) unknown) (unknown) (no (unknown) (unknown) Rheumatic fever (units (unknown) date) unknown) (unknown) (no (unknown) (unknown) SKIN: Warm, dry, no (unit s (unknown) date) laceration, no unknown) petechiae, no rashes or lesions. (unknown) (no (unknown) (unknown) Salmonella (PCR) (units (unknown) date) (Not Detect) unknown) (unknown) (no (unknown) (unknown) Salmonella (PCR) (units (unknown) date) Not detected (Not unknown) Detect) (unknown) (no (unknown) (unknown) Signed By: (units (unk nown) date) unknown) (unknown) (no (unknown) (unknown) Sister Kidney (units ( unknown) date) disease unknown) (unknown) (no (unknown) (unknown) Smoking Status: (units (unknown) date) Never smoker unknown) (unknown) (no (unknown) (unknown) Social History (units (unknown) date) (Reviewed 08/25/22 @ unknown) 15:53 by Vania Delgado DO) (unknown) (no (unknown) (unknown) Sodium (137-145) (units (unknown) date) mmol/L unknown) (unknown) (no (unknown) (unknown) Sodium 139 (units (unk nown) date) (137-145) mmol/L unknown) (unknown) (no (unknown) (unknown) Sodium Chloride (units (unknown) date) (Normal Saline 0.9%) unknown) 1,000 mls @ 1,000 mls/hr IV BOLUS ONE (unknown) (no (unknown) (unknown) Solid organs:? (units (unknown) date) unknown) (unknown) (no (unknown) (unknown) Source: patient (units (unknown) date) unknown) (unknown) (no (unknown) (unknown) Spleen: Normal (units (unknown) date) size. There are no unknown) masses. (unknown) (no (unknown) (unknown) St Sh/Enteroin (units (unknown) date) Ecoli PCR (Not unknown) Detect) (unknown) (no (unknown) (unknown) St Sh/Enteroin (units (unknown) date) Ecoli PCR Not unknown) detected (Not Detect) (unknown) (no (unknown) (unknown) St Y.enterocolitica (unit s (unknown) date) PCR (Not Detect) unknown) (unknown) (no (unknown) (unknown) St Y.enterocolitica (unit s (unknown) date) PCR Not detected unknown) (Not Detect) (unknown) (no (unknown) (unknown) Stand Alone Forms: (units (unknown) date) Patient Portal/API unknown) (unknown) (no (unknown) (unknown) Stated Complaint: (units (unknown) date) blood in stool, abd unknown) pain, cant keep food down (unknown) (no (unknown) (unknown) Status post (units (un known) date) appendectomy unknown) (unknown) (no (unknown) (unknown) Status post (units (un known) date) cholecystectomy unknown) (unknown) (no (unknown) (unknown) Stl C. cayetanensis (unit s (unknown) date) PCR (Not Detect) unknown) (unknown) (no (unknown) (unknown) Stl C. cayetanensis (unit s (unknown) date) PCR Not detected unknown) (Not Detect) (unknown) (no (unknown) (unknown) Stl E. histolytica (units (unknown) date) PCR (Not Detect) unknown) (unknown) (no (unknown) (unknown) Stl E. histolytica (units (unknown) date) PCR Not detected unknown) (Not Detect) (unknown) (no (unknown) (unknown) Stl E.coli Shiga (units (unknown) date) Tox PCR (Not Detect) unknown) (unknown) (no (unknown) (unknown) Stl E.coli Shiga (units (unknown) date) Tox PCR Not detected unknown) (Not Detect) (unknown) (no (unknown) (unknown) Stl Enteroaggr (units (unknown) date) Ecoli PCR (Not unknown) Detect) (unknown) (no (unknown) (unknown) Stl Enteroaggr (units (unknown) date) Ecoli PCR Not unknown) detected (Not Detect) (unknown) (no (unknown) (unknown) Stl Enterotoxigenic (unit s (unknown) date) E PCR (Not Detect) unknown) (unknown) (no (unknown) (unknown) Stl Enterotoxigenic (unit s (unknown) date) E PCR Not detected unknown) (Not Detect) (unknown) (no (unknown) (unknown) Stl Norovirus (units ( unknown) date) GI/GII PCR (Not unknown) Detect) (unknown) (no (unknown) (unknown) Stl Norovirus (units ( unknown) date) GI/GII PCR Not unknown) detected (Not Detect) (unknown) (no (unknown) (unknown) Stl P. shigelloides (unit s (unknown) date) PCR (Not Detect) unknown) (unknown) (no (unknown) (unknown) Stl P. shigelloides (unit s (unknown) date) PCR Not detected unknown) (Not Detect) (unknown) (no (unknown) (unknown) Stl Vibrio cholerae (unit s (unknown) date) PCR (Not Detect) unknown) (unknown) (no (unknown) (unknown) Stl Vibrio cholerae (unit s (unknown) date) PCR Not detected unknown) (Not Detect) (unknown) (no (unknown) (unknown) Stool Adenovirus (units (unknown) date) (PCR) (Not Detect) unknown) (unknown) (no (unknown) (unknown) Stool Adenovirus (units (unknown) date) (PCR) Not detected unknown) (Not Detect) (unknown) (no (unknown) (unknown) Stool Astrovirus (units (unknown) date) (PCR) (Not Detect) unknown) (unknown) (no (unknown) (unknown) Stool Astrovirus (units (unknown) date) (PCR) Not detected unknown) (Not Detect) (unknown) (no (unknown) (unknown) Stool (units (unkno wn) date) Cryptosporidium PCR unknown) (Not Detect) (unknown) (no (unknown) (unknown) Stool (units (unkno wn) date) Cryptosporidium PCR unknown) Not detected (Not Detect) (unknown) (no (unknown) (unknown) Stool E coli O157 (units (unknown) date) PCR Not Reportable unknown) (unknown) (no (unknown) (unknown) Stool E coli O157 (units (unknown) date) PCR unknown) (unknown) (no (unknown) (unknown) Stool EPEC (PCR) (units (unknown) date) (Not Detect) unknown) (unknown) (no (unknown) (unknown) Stool EPEC (PCR) (units (unknown) date) Not detected (Not unknown) Detect) (unknown) (no (unknown) (unknown) Stool Giardia (units ( unknown) date) Lamblia PCR (Not unknown) Detect) (unknown) (no (unknown) (unknown) Stool Giardia (units ( unknown) date) Lamblia PCR Not unknown) detected (Not Detect) (unknown) (no (unknown) (unknown) Stool Rotavirus (units (unknown) date) (PCR) (Not Detect) unknown) (unknown) (no (unknown) (unknown) Stool Rotavirus (units (unknown) date) (PCR) Not detected unknown) (Not Detect) (unknown) (no (unknown) (unknown) Stool Sapovirus (units (unknown) date) (PCR) (Not Detect) unknown) (unknown) (no (unknown) (unknown) Stool Sapovirus (units (unknown) date) (PCR) Not detected unknown) (Not Detect) (unknown) (no (unknown) (unknown) Stool Vibrio (PCR) (units (unknown) date) (Not Detect) unknown) (unknown) (no (unknown) (unknown) Stool Vibrio (PCR) (units (unknown) date) Not detected (Not unknown) Detect) (unknown) (no (unknown) (unknown) Stop: 08/25/22 (units (unknown) date) 15:45 unknown) (unknown) (no (unknown) (unknown) Stop: 08/25/22 (units (unknown) date) 15:49 unknown) (unknown) (no (unknown) (unknown) Stop: 08/25/22 (units (unknown) date) 15:54 unknown) (unknown) (no (unknown) (unknown) Stop: 08/25/22 (units (unknown) date) 16:42 unknown) (unknown) (no (unknown) (unknown) Stop: 08/25/22 (units (unknown) date) 18:15 unknown) (unknown) (no (unknown) (unknown) Stop: 08/25/22 (units (unknown) date) 18:16 unknown) (unknown) (no (unknown) (unknown) Substance Use Type: (unit s (unknown) date) marijuana unknown) (unknown) (no (unknown) (unknown) Surgical History (units (unknown) date) (Reviewed 08/25/22 @ unknown) 15:53 by Vania Delgado DO) (unknown) (no (unknown) (unknown) TECHNIQUE:? (units (un known) date) unknown) (unknown) (no (unknown) (unknown) Temperature 97.5 F (units (unknown) date) L 08/25/22 13:24 unknown) (unknown) (no (unknown) (unknown) Temperature 97.5 F (units (unknown) date) L unknown) (unknown) (no (unknown) (unknown) Temperature (units (un known) date) unknown) (unknown) (no (unknown) (unknown) There is very (units ( unknown) date) little stool. She unknown) has pain that moves all over abdomen she (unknown) (no (unknown) (unknown) Time Seen by (units (u nknown) date) Provider: 08/25/22 unknown) 14:37 (unknown) (no (unknown) (unknown) Total Bilirubin (units (unknown) date) (0.2-1.3) mg/dL unknown) (unknown) (no (unknown) (unknown) Total Bilirubin 0.4 (unit s (unknown) date) (0.2-1.3) mg/dL unknown) (unknown) (no (unknown) (unknown) Total Protein (units ( unknown) date) (6.3-8.2) g/dL unknown) (unknown) (no (unknown) (unknown) Total Protein 7.8 (units (unknown) date) (6.3-8.2) g/dL unknown) (unknown) (no (unknown) (unknown) Ulcerative colitis (units (unknown) date) unknown) (unknown) (no (unknown) (unknown) Urine Dip (units (unkn own) date) unknown) (unknown) (no (unknown) (unknown) Urine Specific (units (unknown) date) Morton 1.010 unknown) (unknown) (no (unknown) (unknown) Vital Signs - 8 hr (units (unknown) date) unknown) (unknown) (no (unknown) (unknown) Vital Signs (units (un known) date) unknown) (unknown) (no (unknown) (unknown) Vital signs: (units (u nknown) date) unknown) (unknown) (no (unknown) (unknown) WBC (4.5-11.0) (units (unknown) date) X103/uL unknown) (unknown) (no (unknown) (unknown) WBC 7.4 (4.5-11.0) (units (unknown) date) X103/uL unknown) (unknown) (no (unknown) (unknown) Zofran 4 mg every 8 (unit s (unknown) date) hours if needed for unknown) nausea vomiting (unknown) (no (unknown) (unknown) [Embedded Image Not (unit s (unknown) date) Available] unknown) (unknown) (no (unknown) (unknown) a normal caliber (units (unknown) date) and appearance. The unknown) terminal ileum is normal. The large bowel (unknown) (no (unknown) (unknown) abnormality. She (units (unknown) date) actually is able to unknown) tolerate fluids pain is better after (unknown) (no (unknown) (unknown) acetaminophen 500 (units (unknown) date) mg tablet 1,000 mg unknown) PO Q6H PRN Pain (Scale 01/18/21 08/25/22 (unknown) (no (unknown) (unknown) acetaminophen (units ( unknown) date) [Acetaminophen Extra unknown) Strength] 500 mg Tablet (unknown) (no (unknown) (unknown) acetaminophen/Tylen (unit s (unknown) date) ol/paracetamol in unknown) it, DO NOT TAKE MORE THAN 4,00mg in 24 (unknown) (no (unknown) (unknown) adjustment (units (unk nown) date) unknown) (unknown) (no (unknown) (unknown) aerosol inhaler (units (unknown) date) Shortness Of Breath unknown) Or Wheezing (unknown) (no (unknown) (unknown) albuterol sulfate (units (unknown) date) 90 mcg/actuation 2 unknown) puff inhalation Q4HR PRN 01/18/21 08/25/22 (unknown) (no (unknown) (unknown) albuterol sulfate (units (unknown) date) 90 mcg/actuation Hfa unknown) Aerosol Inhaler (unknown) (no (unknown) (unknown) alcohol intake (units (unknown) date) frequency: other unknown) (unknown) (no (unknown) (unknown) alcohol intake: (units (unknown) date) never unknown) (unknown) (no (unknown) (unknown) always this (units (un known) date) unknown) (unknown) (no (unknown) (unknown) and below (units (unkn own) date) unknown) (unknown) (no (unknown) (unknown) and hepatic veins (units (unknown) date) are patent. unknown) (unknown) (no (unknown) (unknown) and inferior vena (units (unknown) date) cava are normal in unknown) size.? (unknown) (no (unknown) (unknown) appendectomy, (units ( unknown) date) cholecystectomy, unknown) sections, small-bowel obstructions (unknown) (no (unknown) (unknown) aspirin Allergy (units (unknown) date) Severe Anaphylaxis unknown) Verified 08/25/22 13:30 (unknown) (no (unknown) (unknown) bases to the pubic (units (unknown) date) symphysis.? Coronal unknown) and sagittal reformats were performed.? (unknown) (no (unknown) (unknown) benzodiazepines or (units (unknown) date) controlled unknown) substances through the ED and her pain management (unknown) (no (unknown) (unknown) bleeding. Had gross (unit s (unknown) date) serosanguineous unknown) liquid which is sent down for GI panel. (unknown) (no (unknown) (unknown) blood pressures (units (unknown) date) this is true. She is unknown) ambulatory with out symptoms, at this (unknown) (no (unknown) (unknown) bowel has (units (unkn own) date) unknown) (unknown) (no (unknown) (unknown) calcifications. (units (unknown) date) unknown) (unknown) (no (unknown) (unknown) clavulanic acid (units (unknown) date) Allergy Severe unknown) Anaphylaxis Verified 08/25/22 13:30 (unknown) (no (unknown) (unknown) constipation. (units ( unknown) date) unknown) (unknown) (no (unknown) (unknown) criteria.? Aorta (units (unknown) date) unknown) (unknown) (no (unknown) (unknown) currently is very (units (unknown) date) uncomfortable. She unknown) feels a little dizzy and lightheaded. She (unknown) (no (unknown) (unknown) definitively (units (u nknown) date) unknown) (unknown) (no (unknown) (unknown) distress. (units (unkn own) date) unknown) (unknown) (no (unknown) (unknown) epinephrine 0.3 (units (unknown) date) mg/0.3 mL 0.3 mg IM unknown) PRN PRN Allergic Reaction 01/18/21 08/25/22 (unknown) (no (unknown) (unknown) epinephrine 0.3 (units (unknown) date) mg/0.3 mL unknown) auto-injector (unknown) (no (unknown) (unknown) fentanyl Allergy (units (unknown) date) Severe Anaphylaxis unknown) Verified 08/25/22 13:30 (unknown) (no (unknown) (unknown) fluticasone [From (units (unknown) date) Flonase] AdvReac unknown) Intermediate Agitated Verified 08/25/22 13:30 (unknown) (no (unknown) (unknown) found. She did have (unit s (unknown) date) partial small-bowel unknown) obstruction 2020. She reports that (unknown) (no (unknown) (unknown) gastroenteritis. (units (unknown) date) However I did unknown) discuss with her if she continues to have (unknown) (no (unknown) (unknown) gastroenteritis. I (units (unknown) date) suspect nausea and unknown) vomiting that this is more of a (unknown) (no (unknown) (unknown) has a (units (unkno wn) date) unknown) (unknown) (no (unknown) (unknown) hours of Tylenol. (units (unknown) date) unknown) (unknown) (no (unknown) (unknown) household members: (units (unknown) date) spouse and children unknown) (unknown) (no (unknown) (unknown) hydrocodone AdvReac (unit s (unknown) date) Severe Vomiting unknown) Verified 08/25/22 13:30 (unknown) (no (unknown) (unknown) inflammation. (units ( unknown) date) unknown) (unknown) (no (unknown) (unknown) injection, (units (unk nown) date) auto-injector unknown) (unknown) (no (unknown) (unknown) intact (units (unkno wn) date) unknown) (unknown) (no (unknown) (unknown) is not on any (units ( unknown) date) anticoagulation or unknown) antiplatelet medication. She has not out. No (unknown) (no (unknown) (unknown) lightheaded or have (unit s (unknown) date) persistent bleeding unknown) you may need to have your hemoglobin (unknown) (no (unknown) (unknown) lightheadedness (units (unknown) date) [or] any new, unknown) worsening or concerning symptoms (unknown) (no (unknown) (unknown) loratadine 10 mg (units (unknown) date) tablet (Claritin) 10 unknown) mg PO DAILY 01/18/21 08/25/22 (unknown) (no (unknown) (unknown) loratadine (units (unk nown) date) [Claritin] 10 mg unknown) Tablet (unknown) (no (unknown) (unknown) mass. (units (unkno wn) date) unknown) (unknown) (no (unknown) (unknown) membranes (units (unkn own) date) unknown) (unknown) (no (unknown) (unknown) methylprednisolone (units (unknown) date) Allergy Severe unknown) Agitated Verified 08/25/22 13:30 (unknown) (no (unknown) (unknown) morphine Allergy (units (unknown) date) Severe Hives unknown) Verified 08/25/22 13:30 (unknown) (no (unknown) (unknown) normal caliber and (units (unknown) date) appearance.? No free unknown) fluid or air.? The appendix is not (unknown) (no (unknown) (unknown) of mA and/or kV (units (unknown) date) according to patient unknown) size.? (unknown) (no (unknown) (unknown) omeprazole 20 mg (units (unknown) date) Tablet,Delayed unknown) Release (Dr/Ec) (unknown) (no (unknown) (unknown) omeprazole 20 mg (units (unknown) date) tablet,delayed 20 mg unknown) PO BID 03/07/21 08/25/22 (unknown) (no (unknown) (unknown) ondansetron 4 mg (units (unknown) date) disintegrating 4 mg unknown) PO Q8-12H PRN nausea and 02/12/22 (unknown) (no (unknown) (unknown) ondansetron 4 mg (units (unknown) date) tablet,disintegratin unknown) g (unknown) (no (unknown) (unknown) one else is sick at (unit s (unknown) date) home. unknown) (unknown) (no (unknown) (unknown) over the last 24 (units (unknown) date) hours she is had 6 unknown) episodes of bright red blood per rectum. (unknown) (no (unknown) (unknown) portal vein (units (un known) date) unknown) (unknown) (no (unknown) (unknown) presenting today (units (unknown) date) with ongoing unknown) abdominal discomfort and rectal bleeding. She (unknown) (no (unknown) (unknown) previously (units (unk nown) date) small-bowel unknown) obstruction. Blood work is otherwise overall reassuring (unknown) (no (unknown) (unknown) previously (units (unk nown) date) unknown) (unknown) (no (unknown) (unknown) radiation dose (units (unknown) date) reduction, the unknown) following was used:? automated exposure control, (unknown) (no (unknown) (unknown) rechecked. Also (units (unknown) date) recommend outpatient unknown) colonoscopy even though he had been (unknown) (no (unknown) (unknown) release (units (unkno wn) date) unknown) (unknown) (no (unknown) (unknown) repeat levels. (units (unknown) date) Blood pressure is unknown) soft 90s to 100s. After looking at history of (unknown) (no (unknown) (unknown) reports that she (units (unknown) date) has had 2 unknown) colonoscopies in the last 4 years no abnormality (unknown) (no (unknown) (unknown) seen, however there (unit s (unknown) date) is no secondary CT unknown) finding of acute appendicitis. (unknown) (no (unknown) (unknown) significant blood (units (unknown) date) loss then she should unknown) return to the emergency department for (unknown) (no (unknown) (unknown) stool softener such (unit s (unknown) date) as Colace, Dulcolax, unknown) MiraLAX or prune juice, to help avoid (unknown) (no (unknown) (unknown) tablet vomiting #14 (unit s (unknown) date) tabs unknown) (unknown) (no (unknown) (unknown) the lung (units (unkno wn) date) unknown) (unknown) (no (unknown) (unknown) time I do not (units ( unknown) date) believe her to be unknown) hypotensive GI bleed, has blood pressures are (unknown) (no (unknown) (unknown) will need to be (units (unknown) date) through your unknown) provider. (unknown) (no (unknown) (unknown) without sign of SYLVESTER (unit s (unknown) date) or anemia. Repeat unknown) H+H is also stable. CT does not show any Result panel 337 (unknown) (no (unknown) (unknown) (no value) (units (unk nown) date) unknown) (unknown) (no (unknown) (unknown) (Acetaminophen (units (unknown) date) Extra Strength) unknown) Score 4-6) (unknown) (no (unknown) (unknown) TRAMADOL DOES (units (unknown) date) NOT CONTAIN TYLENOL unknown) (unknown) (no (unknown) (unknown) *Continue to take (units (unknown) date) medications as unknown) directed-> SENT TO [facility] (unknown) (no (unknown) (unknown) *Follow up with (units (unknown) date) your primary care unknown) provider in 2-3 days or call [phone] (unknown) (no (unknown) (unknown) *Return to ER if (units (unknown) date) you should have unknown) persistent bleeding worsening pain dizziness (unknown) (no (unknown) (unknown) *What to do: At (units (unknown) date) this time increase unknown) fluids as tolerated. Recommend Gatorade or (unknown) (no (unknown) (unknown) *You have been (units (unknown) date) diagnosed with unknown) rectal bleeding probable viral gastroenteritis (unknown) (no (unknown) (unknown) 0.3 mg IM PRN PRN (units (unknown) date) (Reason: Allergic unknown) Reaction) (unknown) (no (unknown) (unknown) [id number] (units (unkno wn) date) unknown) (unknown) (no (unknown) (unknown) 08/25/22 08/25/22 (units (unknown) date) 08/25/22 Range/Units unknown) (unknown) (no (unknown) (unknown) 08/25/22 08/25/22 (units (unknown) date) Range/Units unknown) (unknown) (no (unknown) (unknown) 08/25/22 14:15 (units (unknown) date) unknown) (unknown) (no (unknown) (unknown) 08/25/22 15:41 (units (unknown) date) unknown) (unknown) (no (unknown) (unknown) 08/25/22 15:43 (units (unknown) date) unknown) (unknown) (no (unknown) (unknown) 08/25/22 15:47 (units (unknown) date) unknown) (unknown) (no (unknown) (unknown) 08/25/22 (units (unkno wn) date) unknown) (unknown) (no (unknown) (unknown) 1 tab PO Q6H PRN (units (unknown) date) (Reason: pain) Qty: unknown) 10 0RF (unknown) (no (unknown) (unknown) 1,000 mg PO Q6H PRN (unit s (unknown) date) (Reason: Pain (Scale unknown) Score 4-6)) (unknown) (no (unknown) (unknown) 1. No acute (units (un known) date) abdominal or pelvic unknown) abnormality. (unknown) (no (unknown) (unknown) 1. You have been (units (unknown) date) prescribed narcotic unknown) medications, it does have (unknown) (no (unknown) (unknown) 10 mg PO DAILY (units (unknown) date) unknown) (unknown) (no (unknown) (unknown) 13:24 08/25/22 (units (unknown) date) unknown) (unknown) (no (unknown) (unknown) 14:15 14:15 14:15 (units (unknown) date) unknown) (unknown) (no (unknown) (unknown) 14:27 08/25/22 (units (unknown) date) unknown) (unknown) (no (unknown) (unknown) 14:28 (units (unkno wn) date) unknown) (unknown) (no (unknown) (unknown) 14:29 08/25/22 (units (unknown) date) unknown) (unknown) (no (unknown) (unknown) 14:30 (units (unkno wn) date) unknown) (unknown) (no (unknown) (unknown) 14:40 08/25/22 (units (unknown) date) unknown) (unknown) (no (unknown) (unknown) 15:00 08/25/22 (units (unknown) date) unknown) (unknown) (no (unknown) (unknown) 15:00 (units (unkno wn) date) unknown) (unknown) (no (unknown) (unknown) 15:20 08/25/22 (units (unknown) date) unknown) (unknown) (no (unknown) (unknown) 15:20 (units (unkno wn) date) unknown) (unknown) (no (unknown) (unknown) 15:30 08/25/22 (units (unknown) date) unknown) (unknown) (no (unknown) (unknown) 15:40 08/25/22 (units (unknown) date) unknown) (unknown) (no (unknown) (unknown) 15:40 (units (unkno wn) date) unknown) (unknown) (no (unknown) (unknown) 15:41 15:47 (units (un known) date) unknown) (unknown) (no (unknown) (unknown) 16:00 08/25/22 (units (unknown) date) unknown) (unknown) (no (unknown) (unknown) 16:20 08/25/22 (units (unknown) date) unknown) (unknown) (no (unknown) (unknown) 16:20 (units (unkno wn) date) unknown) (unknown) (no (unknown) (unknown) 16:35 08/25/22 (units (unknown) date) unknown) (unknown) (no (unknown) (unknown) 16:37 08/25/22 (units (unknown) date) unknown) (unknown) (no (unknown) (unknown) 16:37 (units (unkno wn) date) unknown) (unknown) (no (unknown) (unknown) 16:40 08/25/22 (units (unknown) date) unknown) (unknown) (no (unknown) (unknown) 16:40 (units (unkno wn) date) unknown) (unknown) (no (unknown) (unknown) 17:00 08/25/22 (units (unknown) date) unknown) (unknown) (no (unknown) (unknown) 17:21 08/25/22 (units (unknown) date) unknown) (unknown) (no (unknown) (unknown) 17:21 (units (unkno wn) date) unknown) (unknown) (no (unknown) (unknown) 17:30 08/25/22 (units (unknown) date) unknown) (unknown) (no (unknown) (unknown) 18:00 (units (unkno wn) date) unknown) (unknown) (no (unknown) (unknown) 2 puff INHALATION (units (unknown) date) Q4HR PRN (Reason: unknown) Shortness Of Breath Or Wheezing) (unknown) (no (unknown) (unknown) 2. No evidence of (units (unknown) date) small-bowel unknown) obstruction.? (unknown) (no (unknown) (unknown) 2. Please (units (unkn own) date) understand that we unknown) cannot provide further refills of narcotics, (unknown) (no (unknown) (unknown) 20 mg PO BID (units (u nknown) date) unknown) (unknown) (no (unknown) (unknown) 3. While on these (units (unknown) date) medications you unknown) cannot drive or operate heavy machinery. (unknown) (no (unknown) (unknown) 4 mg PO Q8-12H PRN (units (unknown) date) (Reason: nausea and unknown) vomiting) Qty: 14 0RF (unknown) (no (unknown) (unknown) 4 mg PO Q8H PRN (units (unknown) date) (Reason: nausea and unknown) vomiting) Qty: 10 0RF (unknown) (no (unknown) (unknown) 4. You cannot sign (units (unknown) date) legal documents or unknown) perform any duties such as this. (unknown) (no (unknown) (unknown) 5. As long as (units ( unknown) date) you're taking opiate unknown) pain medications he should also be taking a (unknown) (no (unknown) (unknown) ? (units (unkno wn) date) unknown) (unknown) (no (unknown) (unknown) ABDOMEN: Soft, (units (unknown) date) diffusely tender unknown) over both right and left (unknown) (no (unknown) (unknown) ALT (<35) IU/L (units (unknown) date) unknown) (unknown) (no (unknown) (unknown) ALT 18 (<35) IU/L (units (unknown) date) unknown) (unknown) (no (unknown) (unknown) AST (14-36) IU/L (units (unknown) date) unknown) (unknown) (no (unknown) (unknown) AST 22 (14-36) IU/L (unit s (unknown) date) unknown) (unknown) (no (unknown) (unknown) Activity (units (unkno wn) date) Restrictions/Additio unknown) nal Instructions: (unknown) (no (unknown) (unknown) Admin: 08/25/22 (units (unknown) date) 15:58 Dose: 1,000 unknown) mls/hr (unknown) (no (unknown) (unknown) Adrenals: No (units (u nknown) date) hypertrophy or unknown) nodules. (unknown) (no (unknown) (unknown) After the (units (unkn own) date) administration of unknown) intravenous contrast, axial sections acquired from (unknown) (no (unknown) (unknown) Age/Sex: 36 / F (units (unknown) date) unknown) (unknown) (no (unknown) (unknown) Albumin (3.5-5.0) (units (unknown) date) g/dL unknown) (unknown) (no (unknown) (unknown) Albumin 4.4 (units (un known) date) (3.5-5.0) g/dL unknown) (unknown) (no (unknown) (unknown) Albumin/Globulin (units (unknown) date) Ratio (1.0-2.8) unknown) (unknown) (no (unknown) (unknown) Albumin/Globulin (units (unknown) date) Ratio 1.3 (1.0-2.8) unknown) (unknown) (no (unknown) (unknown) Alkaline (units (unkno wn) date) Phosphatase (38-126) unknown) U/L (unknown) (no (unknown) (unknown) Alkaline (units (unkno wn) date) Phosphatase 44 unknown) (38-126) U/L (unknown) (no (unknown) (unknown) Allergies (units (unkn own) date) unknown) (unknown) (no (unknown) (unknown) Allergy/AdvReac (units (unknown) date) Type Severity unknown) Reaction Status Date / Time (unknown) (no (unknown) (unknown) Anesthesia (units (unk nown) date) unknown) (unknown) (no (unknown) (unknown) Anxiety (units (unkno wn) date) unknown) (unknown) (no (unknown) (unknown) BUN (7-17) mg/dL (units (unknown) date) unknown) (unknown) (no (unknown) (unknown) BUN 12 (7-17) mg/dL (unit s (unknown) date) unknown) (unknown) (no (unknown) (unknown) BUN/Creatinine (units (unknown) date) Ratio (6-22) unknown) (unknown) (no (unknown) (unknown) BUN/Creatinine (units (unknown) date) Ratio 20.3 (6-22) unknown) (unknown) (no (unknown) (unknown) Baso # (Auto) (units ( unknown) date) (0-100) /uL unknown) (unknown) (no (unknown) (unknown) Baso # (Auto) 100 (units (unknown) date) (0-100) /uL unknown) (unknown) (no (unknown) (unknown) Baso % (Auto) (0-2) (unit s (unknown) date) % unknown) (unknown) (no (unknown) (unknown) Baso % (Auto) 1.1 (units (unknown) date) (0-2) % unknown) (unknown) (no (unknown) (unknown) Bedside Urine (units ( unknown) date) Bilirubin - Negative unknown) (unknown) (no (unknown) (unknown) Bedside Urine (units ( unknown) date) Glucose Negative unknown) (unknown) (no (unknown) (unknown) Bedside Urine (units ( unknown) date) Ketone - Negative unknown) (unknown) (no (unknown) (unknown) Bedside Urine (units ( unknown) date) Leukocytes - unknown) Negative (unknown) (no (unknown) (unknown) Bedside Urine (units ( unknown) date) Nitrite - Negative unknown) (unknown) (no (unknown) (unknown) Bedside Urine (units ( unknown) date) Occult Blood - unknown) Negative (unknown) (no (unknown) (unknown) Bedside Urine (units ( unknown) date) Protein +/- 15 unknown) (unknown) (no (unknown) (unknown) Bedside Urine (units ( unknown) date) Urobilinogen - unknown) Negative (unknown) (no (unknown) (unknown) Bedside Urine pH (units (unknown) date) 8.0 unknown) (unknown) (no (unknown) (unknown) Biliary: Status (units (unknown) date) post unknown) cholecystectomy. (unknown) (no (unknown) (unknown) Blood Pressure (units (unknown) date) 101/62 unknown) (unknown) (no (unknown) (unknown) Blood Pressure (units (unknown) date) 101/70 unknown) (unknown) (no (unknown) (unknown) Blood Pressure (units (unknown) date) 104/64 95/60 unknown) (unknown) (no (unknown) (unknown) Blood Pressure (units (unknown) date) 105/65 unknown) (unknown) (no (unknown) (unknown) Blood Pressure (units (unknown) date) 107/63 08/25/22 unknown) 13:24 (unknown) (no (unknown) (unknown) Blood Pressure (units (unknown) date) 107/63 104/62 unknown) (unknown) (no (unknown) (unknown) Blood Pressure (units (unknown) date) 110/71 unknown) (unknown) (no (unknown) (unknown) Blood Pressure (units (unknown) date) 91/59 L unknown) (unknown) (no (unknown) (unknown) Blood Pressure (units (unknown) date) 95/57 L unknown) (unknown) (no (unknown) (unknown) Blood Pressure (units (unknown) date) 98/62 96/63 unknown) (unknown) (no (unknown) (unknown) Blood Pressure (units (unknown) date) 99/61 116/66 unknown) (unknown) (no (unknown) (unknown) Blood Pressure (units (unknown) date) unknown) (unknown) (no (unknown) (unknown) Blood pressure is (units (unknown) date) soft in the low 100s unknown) she appears quite uncomfortable. She (unknown) (no (unknown) (unknown) Bones:? No (units (unk nown) date) suspicious bony unknown) lesions.? No vertebral body compression fractures.? (unknown) (no (unknown) (unknown) Bright red rectal (units (unknown) date) bleeding, unknown) Gastroenteritis (unknown) (no (unknown) (unknown) Brother Kidney (units (unknown) date) disease unknown) (unknown) (no (unknown) (unknown) C. difficile Tox (units (unknown) date) (PCR) (Not Detect) unknown) (unknown) (no (unknown) (unknown) C. difficile Tox (units (unknown) date) (PCR) Not detected unknown) (Not Detect) (unknown) (no (unknown) (unknown) CARDIOVASCULAR: (units (unknown) date) Regular rate and unknown) rhythm without murmurs, rubs or gallops. (unknown) (no (unknown) (unknown) COM[facility]ISON:[facility], [facility], CT unknown) ABDOMEN PELVIS W CON, 01/17/2021, 23:35. (unknown) (no (unknown) (unknown) CONTROLLED (units (unk nown) date) SUBSTANCE DISCHARGE unknown) (Narcotoic/benzodiaz epine/Flexeril/Phene rgan) (unknown) (no (unknown) (unknown) CT abdomen pelvis w (unit s (unknown) date) con Stat unknown) (unknown) (no (unknown) (unknown) CT scan - (units (unkn own) date) abdomen/pelvis: unknown) (unknown) (no (unknown) (unknown) Calcium (8.4-10.2) (units (unknown) date) mg/dL unknown) (unknown) (no (unknown) (unknown) Calcium 8.6 (units (un known) date) (8.4-10.2) mg/dL unknown) (unknown) (no (unknown) (unknown) Campylobacter (PCR) (unit s (unknown) date) (Not Detect) unknown) (unknown) (no (unknown) (unknown) Campylobacter (PCR) (unit s (unknown) date) Not detected (Not unknown) Detect) (unknown) (no (unknown) (unknown) Carbon Dioxide (units (unknown) date) (22-32) mmol/L unknown) (unknown) (no (unknown) (unknown) Carbon Dioxide 25 (units (unknown) date) (22-32) mmol/L unknown) (unknown) (no (unknown) (unknown) 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 unknown) (unknown) (no (unknown) (unknown) Chief Complaint: (units (unknown) date) Abdominal Pain unknown) (unknown) (no (unknown) (unknown) Chloride (98-107) (units (unknown) date) mmol/L unknown) (unknown) (no (unknown) (unknown) Chloride 105 (units (u nknown) date) (98-107) mmol/L unknown) (unknown) (no (unknown) (unknown) Clinical (units (unkno wn) date) Impression: unknown) (unknown) (no (unknown) (unknown) Complete Blood (units (unknown) date) Count AUTO DIFF Stat unknown) (unknown) (no (unknown) (unknown) Comprehensive (units ( unknown) date) Metabolic Panel Stat unknown) (unknown) (no (unknown) (unknown) Course (units (unkno wn) date) unknown) (unknown) (no (unknown) (unknown) Creatinine (units (unk nown) date) (0.52-1.04) mg/dL unknown) (unknown) (no (unknown) (unknown) Creatinine 0.59 (units (unknown) date) (0.52-1.04) mg/dL unknown) (unknown) (no (unknown) (unknown) : 1985 (units (unknown) date) Acct:[id number] unknown) (unknown) (no (unknown) (unknown) Date of Service: (units (unknown) date) 08/25/22 unknown) (unknown) (no (unknown) (unknown) Departure (units (unkn own) date) unknown) (unknown) (no (unknown) (unknown) Dictated by: Mandeep (unit s (unknown) date) Jen Valdivia on unknown) 08/25/2022 at 16:30 ? (unknown) (no (unknown) (unknown) Differential (units (u nknown) date) diagnosis includes unknown) Crohn's disease, ulcerative colitis, polyp, (unknown) (no (unknown) (unknown) Dilaudid. She is (units (unknown) date) had 2 previous unknown) colonoscopies in last couple of years. (unknown) (no (unknown) (unknown) Diphenhydramine HCl (unit s (unknown) date) (Diphenhydramine 50 unknown) Mg/Ml Vial) 25 mg IV NOW ONE (unknown) (no (unknown) (unknown) Discharge Plan (units (unknown) date) unknown) (unknown) (no (unknown) (unknown) Discontinued (units (u nknown) date) Medications unknown) (unknown) (no (unknown) (unknown) Documented By: BS (units (unknown) date) unknown) (unknown) (no (unknown) (unknown) Documented By: KM (units (unknown) date) unknown) (unknown) (no (unknown) (unknown) ED Orders (units (unkn own) date) unknown) (unknown) (no (unknown) (unknown) ER Physician: (units ( unknown) date) Vania Delgado D.O. unknown) (unknown) (no (unknown) (unknown) EXTREMITIES: Normal (unit s (unknown) date) range of motion, no unknown) clubbing or edema. Neurovascularly (unknown) (no (unknown) (unknown) Emergency Report (units (unknown) date) unknown) (unknown) (no (unknown) (unknown) 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 (units ( unknown) date) unknown) (unknown) (no (unknown) (unknown) Eos # (Auto) (units (u nknown) date) (0-450) /uL unknown) (unknown) (no (unknown) (unknown) Eos # (Auto) 300 (units (unknown) date) (0-450) /uL unknown) (unknown) (no (unknown) (unknown) Eos % (Auto) (2-4) (units (unknown) date) % unknown) (unknown) (no (unknown) (unknown) Eos % (Auto) 3.7 (units (unknown) date) (2-4) % unknown) (unknown) (no (unknown) (unknown) Esterase (units (unkno wn) date) unknown) (unknown) (no (unknown) (unknown) Estimated GFR > 60 (units (unknown) date) (>60) mL/min unknown) (unknown) (no (unknown) (unknown) Estimated GFR (>60) (unit s (unknown) date) mL/min unknown) (unknown) (no (unknown) (unknown) Exam (units (unkno wn) date) unknown) (unknown) (no (unknown) (unknown) FINDINGS: (units (unkn own) date) unknown) (unknown) (no (unknown) (unknown) Family History (units (unknown) date) (Reviewed 08/25/22 @ unknown) 15:53 by Vania Delgado DO) (unknown) (no (unknown) (unknown) Father Prostate (units (unknown) date) cancer unknown) (unknown) (no (unknown) (unknown) Fatigue (units (unkno wn) date) unknown) (unknown) (no (unknown) (unknown) Food sticks on (units (unknown) date) swallowing unknown) (unknown) (no (unknown) (unknown) For (units (unkno wn) date) unknown) (unknown) (no (unknown) (unknown) Fractures (units (unkn own) date) unknown) (unknown) (no (unknown) (unknown) GENERAL: Alert (units (unknown) date) 36-year-old female unknown) appears very uncomfortable and in no acute (unknown) (no (unknown) (unknown) GERD (units (unkno wn) date) (gastroesophageal unknown) reflux disease) (unknown) (no (unknown) (unknown) GI Panel (Film (units (unknown) date) Array) Stat unknown) (unknown) (no (unknown) (unknown) : No CVA (units (unk nown) date) tenderness unknown) (unknown) (no (unknown) (unknown) Gatorade product. (units (unknown) date) May increase diet as unknown) tolerated. If you her dizzy or (unknown) (no (unknown) (unknown) General (units (unkno wn) date) unknown) (unknown) (no (unknown) (unknown) Genitourinary:? The (unit s (unknown) date) bladder has no wall unknown) thickening or mass. No bladder (unknown) (no (unknown) (unknown) Globulin (1.7-4.1) (units (unknown) date) g/dL unknown) (unknown) (no (unknown) (unknown) Globulin 3.4 (units (u nknown) date) (1.7-4.1) g/dL unknown) (unknown) (no (unknown) (unknown) Glucose (70-100) (units (unknown) date) mg/dL unknown) (unknown) (no (unknown) (unknown) Glucose 110 H (units ( unknown) date) (70-100) mg/dL unknown) (unknown) (no (unknown) (unknown) Grandmother Breast (units (unknown) date) cancer unknown) (unknown) (no (unknown) (unknown) HEENT: Head (units (un known) date) atraumatic,EOMI, unknown) pupils reactive, face symmetric, moist mucous (unknown) (no (unknown) (unknown) HPI - Abdominal (units (unknown) date) Pain unknown) (unknown) (no (unknown) (unknown) HPI narrative: (units (unknown) date) unknown) (unknown) (no (unknown) (unknown) Hct 38.0 (36-46) % (units (unknown) date) unknown) (unknown) (no (unknown) (unknown) Hct 42.3 (36-46) % (units (unknown) date) unknown) (unknown) (no (unknown) (unknown) Headache (units (unkno wn) date) unknown) (unknown) (no (unknown) (unknown) Heavy menstrual (units (unknown) date) period unknown) (unknown) (no (unknown) (unknown) Hemoglobin and (units (unknown) date) Hematocrit Stat unknown) (unknown) (no (unknown) (unknown) Hgb 12.8 (units (unkno wn) date) (12.0-16.0) g/dL unknown) (unknown) (no (unknown) (unknown) Hgb 14.1 (units (unkno wn) date) (12.0-16.0) g/dL unknown) (unknown) (no (unknown) (unknown) History of Present (units (unknown) date) Illness unknown) (unknown) (no (unknown) (unknown) History of brain (units (unknown) date) surgery unknown) (unknown) (no (unknown) (unknown) History of cone (units (unknown) date) biopsy of cervix unknown) (unknown) (no (unknown) (unknown) 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 (units (u nknown) date) unknown) (unknown) (no (unknown) (unknown) INDICATIONS:? ab (units (unknown) date) pain hx of sbo unknown) (unknown) (no (unknown) (unknown) INJECT CONTENTS OF (units (unknown) date) 1 PEN NEEDED FOR unknown) ANAPHYLAXIS (unknown) (no (unknown) (unknown) Image quality:? (units (unknown) date) Excellent.? unknown) (unknown) (no (unknown) (unknown) Imaging Data (units (u nknown) date) unknown) (unknown) (no (unknown) (unknown) Initial Vital Signs (unit s (unknown) date) unknown) (unknown) (no (unknown) (unknown) Initial Vital (units ( unknown) date) Signs: unknown) (unknown) (no (unknown) (unknown) Instructions: DI (units (unknown) date) for Viral unknown) Gastroenteritis -- Adult, DI for Rectal Bleeding (unknown) (no (unknown) (unknown) Irritable bowel (units (unknown) date) syndrome unknown) (unknown) (no (unknown) (unknown) [facility] (units (unknown) date) [address] unknown) [place] [address] (unknown) (no (unknown) (unknown) Kidney disease (units (unknown) date) unknown) (unknown) (no (unknown) (unknown) Kidneys: No (units (un known) date) obstructive calculus unknown) or hydronephrosis.? No solid mass. No cystic (unknown) (no (unknown) (unknown) Lab Data (units (unkno wn) date) unknown) (unknown) (no (unknown) (unknown) Lab Results (units (un known) date) unknown) (unknown) (no (unknown) (unknown) Labs: (units (unkno wn) date) unknown) (unknown) (no (unknown) (unknown) Lactate (0.7-2.1) (units (unknown) date) mmol/L unknown) (unknown) (no (unknown) (unknown) Lactate (Lactic (units (unknown) date) Acid) Stat unknown) (unknown) (no (unknown) (unknown) Lactate 1.0 (units (un known) date) (0.7-2.1) mmol/L unknown) (unknown) (no (unknown) (unknown) Last Admin: (units (un known) date) 08/25/22 14:39 Dose: unknown) 4 mg (unknown) (no (unknown) (unknown) Last Admin: (units (un known) date) 08/25/22 15:58 Dose: unknown) 0.5 mg (unknown) (no (unknown) (unknown) Last Admin: (units (un known) date) 08/25/22 15:58 Dose: unknown) 25 mg (unknown) (no (unknown) (unknown) Last Admin: (units (un known) date) 08/25/22 15:58 Dose: unknown) 4 mg (unknown) (no (unknown) (unknown) Last Infusion: (units (unknown) date) 08/25/22 17:17 Dose: unknown) 0 mls/hr (unknown) (no (unknown) (unknown) Lipase (23-300) U/L (unit s (unknown) date) unknown) (unknown) (no (unknown) (unknown) Lipase 246 (23-300) (unit s (unknown) date) U/L unknown) (unknown) (no (unknown) (unknown) Lipase Stat (units (un known) date) unknown) (unknown) (no (unknown) (unknown) Liver: The liver (units (unknown) date) has no mass or unknown) intrahepatic biliary ductal dilatation. The (unknown) (no (unknown) (unknown) Lung bases:? Lung (units (unknown) date) bases are clear.? unknown) Heart size is normal. (unknown) (no (unknown) (unknown) Lymph # (Auto) (units (unknown) date) (6798-1949) /uL unknown) (unknown) (no (unknown) (unknown) Lymph # (Auto) 1900 (unit s (unknown) date) (7231-0180) /uL unknown) (unknown) (no (unknown) (unknown) Lymph % (Auto) (units (unknown) date) (25-40) % unknown) (unknown) (no (unknown) (unknown) Lymph % (Auto) 25.2 (unit s (unknown) date) (25-40) % unknown) (unknown) (no (unknown) (unknown) MCH (26-34) PG (units (unknown) date) unknown) (unknown) (no (unknown) (unknown) MCH 29.7 (26-34) PG (unit s (unknown) date) unknown) (unknown) (no (unknown) (unknown) MCHC (30-36) % (units (unknown) date) unknown) (unknown) (no (unknown) (unknown) MCHC 33.3 (30-36) % (unit s (unknown) date) unknown) (unknown) (no (unknown) (unknown) MCV (80-100) fL (units (unknown) date) unknown) (unknown) (no (unknown) (unknown) MCV 89.1 (80-100) (units (unknown) date) fL unknown) (unknown) (no (unknown) (unknown) MDM - Abdominal (units (unknown) date) Pain unknown) (unknown) (no (unknown) (unknown) MDM Narrative (units ( unknown) date) unknown) (unknown) (no (unknown) (unknown) Medical History (units (unknown) date) (Reviewed 08/25/22 @ unknown) 15:53 by Vania Delgado DO) (unknown) (no (unknown) (unknown) Medical decision (units (unknown) date) making narrative: unknown) (unknown) (no (unknown) (unknown) Medication (units (unk nown) date) Instructions unknown) Recorded Confirmed (unknown) (no (unknown) (unknown) Medication (units (unk nown) date) Instructions unknown) Recorded (unknown) (no (unknown) (unknown) Migraines (units (unkn own) date) unknown) (unknown) (no (unknown) (unknown) Miscellaneous:? No (units (unknown) date) abdominal wall mass unknown) or hernia. (unknown) (no (unknown) (unknown) Mode of arrival: (units (unknown) date) Ambulatory unknown) (unknown) (no (unknown) (unknown) [place] # (Auto) (units ( unknown) date) (0-900) /uL unknown) (unknown) (no (unknown) (unknown) [place] # (Auto) 400 (units (unknown) date) (0-900) /uL unknown) (unknown) (no (unknown) (unknown) [place] % (Auto) (units ( unknown) date) (3-14) % unknown) (unknown) (no (unknown) (unknown) [place] % (Auto) 4.9 (units (unknown) date) (3-14) % unknown) (unknown) (no (unknown) (unknown) Mother Thyroid (units (unknown) date) cancer unknown) (unknown) (no (unknown) (unknown) NEUROLOGICAL: Alert (unit s (unknown) date) and oriented unknown) x4.Normal gait and speech. (unknown) (no (unknown) (unknown) Neut # (Auto) (units ( unknown) date) (5528-0816) /uL unknown) (unknown) (no (unknown) (unknown) Neut # (Auto) 4800 (units (unknown) date) (2855-6457) /uL unknown) (unknown) (no (unknown) (unknown) Neut % (Auto) (units ( unknown) date) (50-75) % unknown) (unknown) (no (unknown) (unknown) Neut % (Auto) 65.1 (units (unknown) date) (50-75) % unknown) (unknown) (no (unknown) (unknown) New (units (unkno wn) date) unknown) (unknown) (no (unknown) (unknown) No Action (units (unkn own) date) unknown) (unknown) (no (unknown) (unknown) Nodes and vessels:? (unit s (unknown) date) No retroperitoneal unknown) or mesenteric adenopathy by size (unknown) (no (unknown) (unknown) [place] 1 tablet (units (unknown) date) every 6 hours if unknown) needed for severe pain (unknown) (no (unknown) (unknown) ONE (units (unkno wn) date) unknown) (unknown) (no (unknown) (unknown) Ondansetron HCl (units (unknown) date) (Ondansetron 4 Mg unknown) Odt Prepack) 1 bottle MIS SEEINSTR ONE (unknown) (no (unknown) (unknown) Ondansetron HCl (units (unknown) date) (Ondansetron 4 Mg unknown) Odt) 4 mg PO NOW PRN (unknown) (no (unknown) (unknown) Ondansetron HCl (units (unknown) date) (Ondansetron 4 Mg/2 unknown) Ml Inj) 4 mg IV NOW ONE (unknown) (no (unknown) (unknown) Ondansetron HCl (units (unknown) date) (Ondansetron 4 Mg/2 unknown) Ml Inj) 4 mg IV NOW PRN (unknown) (no (unknown) (unknown) Ordered: (units (unkno wn) date) unknown) (unknown) (no (unknown) (unknown) Orders (units (unkno wn) date) unknown) (unknown) (no (unknown) (unknown) Ovarian cyst (units (u nknown) date) unknown) (unknown) (no (unknown) (unknown) Oxycodone/Acetamino (unit s (unknown) date) phen (Oxycodone/Apap unknown) 5/325 Prepack) 1 bottle MISC SEEINSTR (unknown) (no (unknown) (unknown) Oxygen Delivery (units (unknown) date) Method Room Air unknown) 08/25/22 13:24 (unknown) (no (unknown) (unknown) Oxygen Delivery (units (unknown) date) Method Room Air unknown) (unknown) (no (unknown) (unknown) Oxygen Delivery (units (unknown) date) Method unknown) (unknown) (no (unknown) (unknown) PELVIS:? (units (unkno wn) date) unknown) (unknown) (no (unknown) (unknown) PRN Reason: Nausea (units (unknown) date) And Vomiting unknown) (unknown) (no (unknown) (unknown) PROCEDURE:? CT (units (unknown) date) ABDOMEN PELVIS W CON unknown) (unknown) (no (unknown) (unknown) Pancreas: The (units (u nknown) date) pancreas has no mass unknown) or ductal dilatation. There is no surrounding (unknown) (no (unknown) (unknown) Patient 36-year-old (unit s (unknown) date) female who has had unknown) previous colonoscopies for rectal (unknown) (no (unknown) (unknown) Patient Comments: (units (unknown) date) unknown) (unknown) (no (unknown) (unknown) Patient (units (unkno wn) date) Disposition: Home unknown) (unknown) (no (unknown) (unknown) Patient History (units (unknown) date) unknown) (unknown) (no (unknown) (unknown) Patient is a (units (u nknown) date) 36-year-old female unknown) has a history of polycystic kidney disease, (unknown) (no (unknown) (unknown) Patient: (units (unkno wn) date) Ni [place]ales A unknown) MR#: [id number] (unknown) (no (unknown) (unknown) Penicillins Allergy (unit s (unknown) date) Severe Anaphylaxis unknown) Verified 08/25/22 13:30 (unknown) (no (unknown) (unknown) Perforated ulcer (units (unknown) date) unknown) (unknown) (no (unknown) (unknown) Peritoneum and (units (unknown) date) bowel:? The distal unknown) esophagus and stomach are normal.? The small (unknown) (no (unknown) (unknown) Plt Count (150-400) (unit s (unknown) date) X103/uL unknown) (unknown) (no (unknown) (unknown) Plt Count 273 (units ( unknown) date) (150-400) X103/uL unknown) (unknown) (no (unknown) (unknown) Point of Care (units ( unknown) date) Testing unknown) (unknown) (no (unknown) (unknown) Point of care (units ( unknown) date) testing: unknown) (unknown) (no (unknown) (unknown) Polycystic kidney (units (unknown) date) disease unknown) (unknown) (no (unknown) (unknown) Potassium (3.4-5.1) (unit s (unknown) date) mmol/L unknown) (unknown) (no (unknown) (unknown) Potassium 3.7 (units ( unknown) date) (3.4-5.1) mmol/L unknown) (unknown) (no (unknown) (unknown) Test (units (unknown) date) Results Negative unknown) (unknown) (no (unknown) (unknown) Prescriptions: (units (unknown) date) unknown) (unknown) (no (unknown) (unknown) Previous Rx's (units ( unknown) date) unknown) (unknown) (no (unknown) (unknown) Pulse Oximetry 100 (units (unknown) date) 08/25/22 13:24 unknown) (unknown) (no (unknown) (unknown) Pulse Oximetry 100 (units (unknown) date) 97 unknown) (unknown) (no (unknown) (unknown) Pulse Oximetry 100 (units (unknown) date) 99 unknown) (unknown) (no (unknown) (unknown) Pulse Oximetry 100 (units (unknown) date) unknown) (unknown) (no (unknown) (unknown) Pulse Oximetry 94 (units (unknown) date) 96 unknown) (unknown) (no (unknown) (unknown) Pulse Oximetry 96 (units (unknown) date) 100 unknown) (unknown) (no (unknown) (unknown) Pulse Oximetry 98 (units (unknown) date) 98 unknown) (unknown) (no (unknown) (unknown) Pulse Oximetry 99 (units (unknown) date) 98 unknown) (unknown) (no (unknown) (unknown) Pulse Oximetry 99 (units (unknown) date) unknown) (unknown) (no (unknown) (unknown) Pulse Rate 64 81 (units (unknown) date) unknown) (unknown) (no (unknown) (unknown) Pulse Rate 64 (units ( unknown) date) unknown) (unknown) (no (unknown) (unknown) Pulse Rate 65 67 (units (unknown) date) unknown) (unknown) (no (unknown) (unknown) Pulse Rate 68 62 (units (unknown) date) unknown) (unknown) (no (unknown) (unknown) Pulse Rate 72 67 (units (unknown) date) unknown) (unknown) (no (unknown) (unknown) Pulse Rate 72 (units ( unknown) date) unknown) (unknown) (no (unknown) (unknown) Pulse Rate 74 77 (units (unknown) date) unknown) (unknown) (no (unknown) (unknown) Pulse Rate 75 64 (units (unknown) date) unknown) (unknown) (no (unknown) (unknown) Pulse Rate 76 (units ( unknown) date) 08/25/22 13:24 unknown) (unknown) (no (unknown) (unknown) Pulse Rate 76 74 (units (unknown) date) unknown) (unknown) (no (unknown) (unknown) Pulse Rate 76 (units ( unknown) date) unknown) (unknown) (no (unknown) (unknown) Pulse Rate 77 (units ( unknown) date) unknown) (unknown) (no (unknown) (unknown) RBC (4.0-5.2) (units ( unknown) date) X106/uL unknown) (unknown) (no (unknown) (unknown) RBC 4.75 (4.0-5.2) (units (unknown) date) X106/uL unknown) (unknown) (no (unknown) (unknown) RDW (11.6-14.8) % (units (unknown) date) unknown) (unknown) (no (unknown) (unknown) RDW 12.9 (units (unkno wn) date) (11.6-14.8) % unknown) (unknown) (no (unknown) (unknown) RECTAL: No external (unit s (unknown) date) hemorrhoids no blood unknown) no stool in vault (unknown) (no (unknown) (unknown) RESPIRATORY: Breath (unit s (unknown) date) sounds equal unknown) bilaterally, no wheezes rales or rhonchi. (unknown) (no (unknown) (unknown) ROS Unobtainable: (units (unknown) date) All systems reviewed unknown) + are unremarkable except as noted in HPI (unknown) (no (unknown) (unknown) Radiologist's (units ( unknown) date) Impression: unknown) (unknown) (no (unknown) (unknown) Related Data (units (u nknown) date) unknown) (unknown) (no (unknown) (unknown) Respiratory Rate 20 (unit s (unknown) date) 08/25/22 13:24 unknown) (unknown) (no (unknown) (unknown) Respiratory Rate 20 (unit s (unknown) date) unknown) (unknown) (no (unknown) (unknown) Respiratory Rate (units (unknown) date) unknown) (unknown) (no (unknown) (unknown) Restless leg (units (u nknown) date) syndrome unknown) (unknown) (no (unknown) (unknown) Review of Systems (units (unknown) date) unknown) (unknown) (no (unknown) (unknown) Rheumatic fever (units (unknown) date) unknown) (unknown) (no (unknown) (unknown) SKIN: Warm, dry, no (unit s (unknown) date) laceration, no unknown) petechiae, no rashes or lesions. (unknown) (no (unknown) (unknown) Salmonella (PCR) (units (unknown) date) (Not Detect) unknown) (unknown) (no (unknown) (unknown) Salmonella (PCR) (units (unknown) date) Not detected (Not unknown) Detect) (unknown) (no (unknown) (unknown) Signed By: (units (unk nown) date) unknown) (unknown) (no (unknown) (unknown) Sister Kidney (units ( unknown) date) disease unknown) (unknown) (no (unknown) (unknown) Smoking Status: (units (unknown) date) Never smoker unknown) (unknown) (no (unknown) (unknown) Social History (units (unknown) date) (Reviewed 08/25/22 @ unknown) 15:53 by Vania Delgado DO) (unknown) (no (unknown) (unknown) Sodium (137-145) (units (unknown) date) mmol/L unknown) (unknown) (no (unknown) (unknown) Sodium 139 (units (unk nown) date) (137-145) mmol/L unknown) (unknown) (no (unknown) (unknown) Sodium Chloride (units (unknown) date) (Normal Saline 0.9%) unknown) 1,000 mls @ 1,000 mls/hr IV BOLUS ONE (unknown) (no (unknown) (unknown) Solid organs:? (units (unknown) date) unknown) (unknown) (no (unknown) (unknown) Source: patient (units (unknown) date) unknown) (unknown) (no (unknown) (unknown) Spleen: Normal (units (unknown) date) size. There are no unknown) masses. (unknown) (no (unknown) (unknown) St Sh/Enteroin (units (unknown) date) Ecoli PCR (Not unknown) Detect) (unknown) (no (unknown) (unknown) St Sh/Enteroin (units (unknown) date) Ecoli PCR Not unknown) detected (Not Detect) (unknown) (no (unknown) (unknown) St Y.enterocolitica (unit s (unknown) date) PCR (Not Detect) unknown) (unknown) (no (unknown) (unknown) St Y.enterocolitica (unit s (unknown) date) PCR Not detected unknown) (Not Detect) (unknown) (no (unknown) (unknown) Stand Alone Forms: (units (unknown) date) Patient Portal/API, unknown) Work Release Note (unknown) (no (unknown) (unknown) Stated Complaint: (units (unknown) date) blood in stool, abd unknown) pain, cant keep food down (unknown) (no (unknown) (unknown) Status post (units (un known) date) appendectomy unknown) (unknown) (no (unknown) (unknown) Status post (units (un known) date) cholecystectomy unknown) (unknown) (no (unknown) (unknown) Stl C. cayetanensis (unit s (unknown) date) PCR (Not Detect) unknown) (unknown) (no (unknown) (unknown) Stl C. cayetanensis (unit s (unknown) date) PCR Not detected unknown) (Not Detect) (unknown) (no (unknown) (unknown) Stl E. histolytica (units (unknown) date) PCR (Not Detect) unknown) (unknown) (no (unknown) (unknown) Stl E. histolytica (units (unknown) date) PCR Not detected unknown) (Not Detect) (unknown) (no (unknown) (unknown) Stl E.coli Shiga (units (unknown) date) Tox PCR (Not Detect) unknown) (unknown) (no (unknown) (unknown) Stl E.coli Shiga (units (unknown) date) Tox PCR Not detected unknown) (Not Detect) (unknown) (no (unknown) (unknown) Stl Enteroaggr (units (unknown) date) Ecoli PCR (Not unknown) Detect) (unknown) (no (unknown) (unknown) Stl Enteroaggr (units (unknown) date) Ecoli PCR Not unknown) detected (Not Detect) (unknown) (no (unknown) (unknown) Stl Enterotoxigenic (unit s (unknown) date) E PCR (Not Detect) unknown) (unknown) (no (unknown) (unknown) Stl Enterotoxigenic (unit s (unknown) date) E PCR Not detected unknown) (Not Detect) (unknown) (no (unknown) (unknown) Stl Norovirus (units ( unknown) date) GI/GII PCR (Not unknown) Detect) (unknown) (no (unknown) (unknown) Stl Norovirus (units ( unknown) date) GI/GII PCR Not unknown) detected (Not Detect) (unknown) (no (unknown) (unknown) Stl P. shigelloides (unit s (unknown) date) PCR (Not Detect) unknown) (unknown) (no (unknown) (unknown) Stl P. shigelloides (unit s (unknown) date) PCR Not detected unknown) (Not Detect) (unknown) (no (unknown) (unknown) Stl Vibrio cholerae (unit s (unknown) date) PCR (Not Detect) unknown) (unknown) (no (unknown) (unknown) Stl Vibrio cholerae (unit s (unknown) date) PCR Not detected unknown) (Not Detect) (unknown) (no (unknown) (unknown) Stool Adenovirus (units (unknown) date) (PCR) (Not Detect) unknown) (unknown) (no (unknown) (unknown) Stool Adenovirus (units (unknown) date) (PCR) Not detected unknown) (Not Detect) (unknown) (no (unknown) (unknown) Stool Astrovirus (units (unknown) date) (PCR) (Not Detect) unknown) (unknown) (no (unknown) (unknown) Stool Astrovirus (units (unknown) date) (PCR) Not detected unknown) (Not Detect) (unknown) (no (unknown) (unknown) Stool (units (unkno wn) date) Cryptosporidium PCR unknown) (Not Detect) (unknown) (no (unknown) (unknown) Stool (units (unkno wn) date) Cryptosporidium PCR unknown) Not detected (Not Detect) (unknown) (no (unknown) (unknown) Stool E coli O157 (units (unknown) date) PCR Not Reportable unknown) (unknown) (no (unknown) (unknown) Stool E coli O157 (units (unknown) date) PCR unknown) (unknown) (no (unknown) (unknown) Stool EPEC (PCR) (units (unknown) date) (Not Detect) unknown) (unknown) (no (unknown) (unknown) Stool EPEC (PCR) (units (unknown) date) Not detected (Not unknown) Detect) (unknown) (no (unknown) (unknown) Stool Giardia (units ( unknown) date) Lamblia PCR (Not unknown) Detect) (unknown) (no (unknown) (unknown) Stool Giardia (units ( unknown) date) Lamblia PCR Not unknown) detected (Not Detect) (unknown) (no (unknown) (unknown) Stool Rotavirus (units (unknown) date) (PCR) (Not Detect) unknown) (unknown) (no (unknown) (unknown) Stool Rotavirus (units (unknown) date) (PCR) Not detected unknown) (Not Detect) (unknown) (no (unknown) (unknown) Stool Sapovirus (units (unknown) date) (PCR) (Not Detect) unknown) (unknown) (no (unknown) (unknown) Stool Sapovirus (units (unknown) date) (PCR) Not detected unknown) (Not Detect) (unknown) (no (unknown) (unknown) Stool Vibrio (PCR) (units (unknown) date) (Not Detect) unknown) (unknown) (no (unknown) (unknown) Stool Vibrio (PCR) (units (unknown) date) Not detected (Not unknown) Detect) (unknown) (no (unknown) (unknown) Stop: 08/25/22 (units (unknown) date) 15:45 unknown) (unknown) (no (unknown) (unknown) Stop: 08/25/22 (units (unknown) date) 15:49 unknown) (unknown) (no (unknown) (unknown) Stop: 08/25/22 (units (unknown) date) 15:54 unknown) (unknown) (no (unknown) (unknown) Stop: 08/25/22 (units (unknown) date) 16:42 unknown) (unknown) (no (unknown) (unknown) Stop: 08/25/22 (units (unknown) date) 18:15 unknown) (unknown) (no (unknown) (unknown) Stop: 08/25/22 (units (unknown) date) 18:16 unknown) (unknown) (no (unknown) (unknown) Substance Use Type: (unit s (unknown) date) marijuana unknown) (unknown) (no (unknown) (unknown) Surgical History (units (unknown) date) (Reviewed 08/25/22 @ unknown) 15:53 by Vania Delgado DO) (unknown) (no (unknown) (unknown) TECHNIQUE:? (units (un known) date) unknown) (unknown) (no (unknown) (unknown) Temperature 97.5 F (units (unknown) date) L 08/25/22 13:24 unknown) (unknown) (no (unknown) (unknown) Temperature 97.5 F (units (unknown) date) L unknown) (unknown) (no (unknown) (unknown) Temperature (units (un known) date) unknown) (unknown) (no (unknown) (unknown) There is very (units ( unknown) date) little stool. She unknown) has pain that moves all over abdomen she (unknown) (no (unknown) (unknown) Time Seen by (units (u nknown) date) Provider: 08/25/22 unknown) 14:37 (unknown) (no (unknown) (unknown) Total Bilirubin (units (unknown) date) (0.2-1.3) mg/dL unknown) (unknown) (no (unknown) (unknown) Total Bilirubin 0.4 (unit s (unknown) date) (0.2-1.3) mg/dL unknown) (unknown) (no (unknown) (unknown) Total Protein (units ( unknown) date) (6.3-8.2) g/dL unknown) (unknown) (no (unknown) (unknown) Total Protein 7.8 (units (unknown) date) (6.3-8.2) g/dL unknown) (unknown) (no (unknown) (unknown) Ulcerative colitis (units (unknown) date) unknown) (unknown) (no (unknown) (unknown) Urine Dip (units (unkn own) date) unknown) (unknown) (no (unknown) (unknown) Urine Specific (units (unknown) date) Morton 1.010 unknown) (unknown) (no (unknown) (unknown) Vital Signs - 8 hr (units (unknown) date) unknown) (unknown) (no (unknown) (unknown) Vital Signs (units (un known) date) unknown) (unknown) (no (unknown) (unknown) Vital signs: (units (u nknown) date) unknown) (unknown) (no (unknown) (unknown) WBC (4.5-11.0) (units (unknown) date) X103/uL unknown) (unknown) (no (unknown) (unknown) WBC 7.4 (4.5-11.0) (units (unknown) date) X103/uL unknown) (unknown) (no (unknown) (unknown) Zofran 4 mg every 8 (unit s (unknown) date) hours if needed for unknown) nausea vomiting (unknown) (no (unknown) (unknown) [Embedded Image Not (unit s (unknown) date) Available] unknown) (unknown) (no (unknown) (unknown) a normal caliber (units (unknown) date) and appearance. The unknown) terminal ileum is normal. The large bowel (unknown) (no (unknown) (unknown) abnormality. She (units (unknown) date) actually is able to unknown) tolerate fluids pain is better after (unknown) (no (unknown) (unknown) acetaminophen 500 (units (unknown) date) mg tablet 1,000 mg unknown) PO Q6H PRN Pain (Scale 01/18/21 08/25/22 (unknown) (no (unknown) (unknown) acetaminophen (units ( unknown) date) [Acetaminophen Extra unknown) Strength] 500 mg Tablet (unknown) (no (unknown) (unknown) acetaminophen/Tylen (unit s (unknown) date) ol/paracetamol in unknown) it, DO NOT TAKE MORE THAN 4,00mg in 24 (unknown) (no (unknown) (unknown) adjustment (units (unk nown) date) unknown) (unknown) (no (unknown) (unknown) aerosol inhaler (units (unknown) date) Shortness Of Breath unknown) Or Wheezing (unknown) (no (unknown) (unknown) albuterol sulfate (units (unknown) date) 90 mcg/actuation 2 unknown) puff inhalation Q4HR PRN 01/18/21 08/25/22 (unknown) (no (unknown) (unknown) albuterol sulfate (units (unknown) date) 90 mcg/actuation Hfa unknown) Aerosol Inhaler (unknown) (no (unknown) (unknown) alcohol intake (units (unknown) date) frequency: other unknown) (unknown) (no (unknown) (unknown) alcohol intake: (units (unknown) date) never unknown) (unknown) (no (unknown) (unknown) always this (units (un known) date) unknown) (unknown) (no (unknown) (unknown) and below (units (unkn own) date) unknown) (unknown) (no (unknown) (unknown) and hepatic veins (units (unknown) date) are patent. unknown) (unknown) (no (unknown) (unknown) and inferior vena (units (unknown) date) cava are normal in unknown) size.? (unknown) (no (unknown) (unknown) appendectomy, (units ( unknown) date) cholecystectomy, unknown) sections, small-bowel obstructions (unknown) (no (unknown) (unknown) aspirin Allergy (units (unknown) date) Severe Anaphylaxis unknown) Verified 08/25/22 13:30 (unknown) (no (unknown) (unknown) bases to the pubic (units (unknown) date) symphysis.? Coronal unknown) and sagittal reformats were performed.? (unknown) (no (unknown) (unknown) benzodiazepines or (units (unknown) date) controlled unknown) substances through the ED and her pain management (unknown) (no (unknown) (unknown) bleeding. Had gross (unit s (unknown) date) serosanguineous unknown) liquid which is sent down for GI panel. (unknown) (no (unknown) (unknown) blood pressures (units (unknown) date) this is true. She is unknown) ambulatory with out symptoms, at this (unknown) (no (unknown) (unknown) bowel has (units (unkn own) date) unknown) (unknown) (no (unknown) (unknown) calcifications. (units (unknown) date) unknown) (unknown) (no (unknown) (unknown) clavulanic acid (units (unknown) date) Allergy Severe unknown) Anaphylaxis Verified 08/25/22 13:30 (unknown) (no (unknown) (unknown) constipation. (units ( unknown) date) unknown) (unknown) (no (unknown) (unknown) criteria.? Aorta (units (unknown) date) unknown) (unknown) (no (unknown) (unknown) currently is very (units (unknown) date) uncomfortable. She unknown) feels a little dizzy and lightheaded. She (unknown) (no (unknown) (unknown) definitively (units (u nknown) date) unknown) (unknown) (no (unknown) (unknown) distress. (units (unkn own) date) unknown) (unknown) (no (unknown) (unknown) epinephrine 0.3 (units (unknown) date) mg/0.3 mL 0.3 mg IM unknown) PRN PRN Allergic Reaction 01/18/21 08/25/22 (unknown) (no (unknown) (unknown) epinephrine 0.3 (units (unknown) date) mg/0.3 mL unknown) auto-injector (unknown) (no (unknown) (unknown) fentanyl Allergy (units (unknown) date) Severe Anaphylaxis unknown) Verified 08/25/22 13:30 (unknown) (no (unknown) (unknown) fluticasone [From (units (unknown) date) Flonase] AdvReac unknown) Intermediate Agitated Verified 08/25/22 13:30 (unknown) (no (unknown) (unknown) found. She did have (unit s (unknown) date) partial small-bowel unknown) obstruction 2020. She reports that (unknown) (no (unknown) (unknown) gastroenteritis. (units (unknown) date) However I did unknown) discuss with her if she continues to have (unknown) (no (unknown) (unknown) gastroenteritis. I (units (unknown) date) suspect nausea and unknown) vomiting that this is more of a (unknown) (no (unknown) (unknown) has a (units (unkno wn) date) unknown) (unknown) (no (unknown) (unknown) hours of Tylenol. (units (unknown) date) unknown) (unknown) (no (unknown) (unknown) household members: (units (unknown) date) spouse and children unknown) (unknown) (no (unknown) (unknown) hydrocodone AdvReac (unit s (unknown) date) Severe Vomiting unknown) Verified 08/25/22 13:30 (unknown) (no (unknown) (unknown) inflammation. (units ( unknown) date) unknown) (unknown) (no (unknown) (unknown) injection, (units (unk nown) date) auto-injector unknown) (unknown) (no (unknown) (unknown) intact (units (unkno wn) date) unknown) (unknown) (no (unknown) (unknown) is not on any (units ( unknown) date) anticoagulation or unknown) antiplatelet medication. She has not out. No (unknown) (no (unknown) (unknown) lightheaded or have (unit s (unknown) date) persistent bleeding unknown) you may need to have your hemoglobin (unknown) (no (unknown) (unknown) lightheadedness (units (unknown) date) [or] any new, unknown) worsening or concerning symptoms (unknown) (no (unknown) (unknown) loratadine 10 mg (units (unknown) date) tablet (Claritin) 10 unknown) mg PO DAILY 01/18/21 08/25/22 (unknown) (no (unknown) (unknown) loratadine (units (unk nown) date) [Claritin] 10 mg unknown) Tablet (unknown) (no (unknown) (unknown) mass. (units (unkno wn) date) unknown) (unknown) (no (unknown) (unknown) membranes (units (unkn own) date) unknown) (unknown) (no (unknown) (unknown) methylprednisolone (units (unknown) date) Allergy Severe unknown) Agitated Verified 08/25/22 13:30 (unknown) (no (unknown) (unknown) mg tablet (units (unkn own) date) (Percocet) unknown) (unknown) (no (unknown) (unknown) morphine Allergy (units (unknown) date) Severe Hives unknown) Verified 08/25/22 13:30 (unknown) (no (unknown) (unknown) normal caliber and (units (unknown) date) appearance.? No free unknown) fluid or air.? The appendix is not (unknown) (no (unknown) (unknown) of mA and/or kV (units (unknown) date) according to patient unknown) size.? (unknown) (no (unknown) (unknown) omeprazole 20 mg (units (unknown) date) Tablet,Delayed unknown) Release (Dr/Ec) (unknown) (no (unknown) (unknown) omeprazole 20 mg (units (unknown) date) tablet,delayed 20 mg unknown) PO BID 03/07/21 08/25/22 (unknown) (no (unknown) (unknown) ondansetron 4 mg (units (unknown) date) disintegrating 4 mg unknown) PO Q8-12H PRN nausea and 02/12/22 (unknown) (no (unknown) (unknown) ondansetron 4 mg (units (unknown) date) disintegrating 4 mg unknown) PO Q8H PRN nausea and 08/25/22 (unknown) (no (unknown) (unknown) ondansetron 4 mg (units (unknown) date) tablet,disintegratin unknown) g (unknown) (no (unknown) (unknown) one else is sick at (unit s (unknown) date) home. unknown) (unknown) (no (unknown) (unknown) over the last 24 (units (unknown) date) hours she is had 6 unknown) episodes of bright red blood per rectum. (unknown) (no (unknown) (unknown) oxycodone-acetamino (unit s (unknown) date) phen 5 mg-325 1 tab unknown) PO Q6H PRN pain #10 tabs 08/25/22 (unknown) (no (unknown) (unknown) oxycodone-acetamino (unit s (unknown) date) phen [Percocet] unknown) 5-325 mg tablet (unknown) (no (unknown) (unknown) portal vein (units (un known) date) unknown) (unknown) (no (unknown) (unknown) presenting today (units (unknown) date) with ongoing unknown) abdominal discomfort and rectal bleeding. She (unknown) (no (unknown) (unknown) previously (units (unk nown) date) small-bowel unknown) obstruction. Blood work is otherwise overall reassuring (unknown) (no (unknown) (unknown) previously (units (unk nown) date) unknown) (unknown) (no (unknown) (unknown) radiation dose (units (unknown) date) reduction, the unknown) following was used:? automated exposure control, (unknown) (no (unknown) (unknown) rechecked. Also (units (unknown) date) recommend outpatient unknown) colonoscopy even though he had been (unknown) (no (unknown) (unknown) release (units (unkno wn) date) unknown) (unknown) (no (unknown) (unknown) repeat levels. (units (unknown) date) Blood pressure is unknown) soft 90s to 100s. After looking at history of (unknown) (no (unknown) (unknown) reports that she (units (unknown) date) has had 2 unknown) colonoscopies in the last 4 years no abnormality (unknown) (no (unknown) (unknown) seen, however there (unit s (unknown) date) is no secondary CT unknown) finding of acute appendicitis. (unknown) (no (unknown) (unknown) significant blood (units (unknown) date) loss then she should unknown) return to the emergency department for (unknown) (no (unknown) (unknown) stool softener such (unit s (unknown) date) as Colace, Dulcolax, unknown) MiraLAX or prune juice, to help avoid (unknown) (no (unknown) (unknown) tablet vomiting #10 (unit s (unknown) date) tabs unknown) (unknown) (no (unknown) (unknown) tablet vomiting #14 (unit s (unknown) date) tabs unknown) (unknown) (no (unknown) (unknown) the lung (units (unkno wn) date) unknown) (unknown) (no (unknown) (unknown) time I do not (units ( unknown) date) believe her to be unknown) hypotensive GI bleed, has blood pressures are (unknown) (no (unknown) (unknown) will need to be (units (unknown) date) through your unknown) provider. (unknown) (no (unknown) (unknown) without sign of SYLVESTER (unit s (unknown) date) or anemia. Repeat unknown) H+H is also stable. CT does not show any Result panel 338 (unknown) (no (unknown) (unknown) (no value) (units (unk nown) date) unknown) (unknown) (no (unknown) (unknown) <Electronically (units (unknown) date) signed by Vania unknown) Jun Delgado> (unknown) (no (unknown) (unknown) (Acetaminophen (units (unknown) date) Extra Strength) unknown) Score 4-6) (unknown) (no (unknown) (unknown) TRAMADOL DOES (units (unknown) date) NOT CONTAIN TYLENOL unknown) (unknown) (no (unknown) (unknown) *Continue to take (units (unknown) date) medications as unknown) directed-> SENT TO [facility] (unknown) (no (unknown) (unknown) *Follow up with (units (unknown) date) your primary care unknown) provider in 2-3 days or call [phone] (unknown) (no (unknown) (unknown) *Return to ER if (units (unknown) date) you should have unknown) persistent bleeding worsening pain dizziness (unknown) (no (unknown) (unknown) *What to do: At (units (unknown) date) this time increase unknown) fluids as tolerated. Recommend Gatorade or (unknown) (no (unknown) (unknown) *You have been (units (unknown) date) diagnosed with unknown) rectal bleeding probable viral gastroenteritis (unknown) (no (unknown) (unknown) 0.3 mg IM PRN PRN (units (unknown) date) (Reason: Allergic unknown) Reaction) (unknown) (no (unknown) (unknown) [id number] (units (unkno wn) date) unknown) (unknown) (no (unknown) (unknown) 08/25/22 08/25/22 (units (unknown) date) 08/25/22 Range/Units unknown) (unknown) (no (unknown) (unknown) 08/25/22 08/25/22 (units (unknown) date) Range/Units unknown) (unknown) (no (unknown) (unknown) 08/25/22 14:15 (units (unknown) date) unknown) (unknown) (no (unknown) (unknown) 08/25/22 15:41 (units (unknown) date) unknown) (unknown) (no (unknown) (unknown) 08/25/22 15:43 (units (unknown) date) unknown) (unknown) (no (unknown) (unknown) 08/25/22 15:47 (units (unknown) date) unknown) (unknown) (no (unknown) (unknown) 08/25/222032 (units ( unknown) date) unknown) (unknown) (no (unknown) (unknown) 08/25/22 (units (unkno wn) date) unknown) (unknown) (no (unknown) (unknown) 1 tab PO Q6H PRN (units (unknown) date) (Reason: pain) Qty: unknown) 10 0RF (unknown) (no (unknown) (unknown) 1,000 mg PO Q6H PRN (unit s (unknown) date) (Reason: Pain (Scale unknown) Score 4-6)) (unknown) (no (unknown) (unknown) 1. No acute (units (un known) date) abdominal or pelvic unknown) abnormality. (unknown) (no (unknown) (unknown) 1. You have been (units (unknown) date) prescribed narcotic unknown) medications, it does have (unknown) (no (unknown) (unknown) 10 mg PO DAILY (units (unknown) date) unknown) (unknown) (no (unknown) (unknown) 13:24 08/25/22 (units (unknown) date) unknown) (unknown) (no (unknown) (unknown) 14:15 14:15 14:15 (units (unknown) date) unknown) (unknown) (no (unknown) (unknown) 14:27 08/25/22 (units (unknown) date) unknown) (unknown) (no (unknown) (unknown) 14:28 (units (unkno wn) date) unknown) (unknown) (no (unknown) (unknown) 14:29 08/25/22 (units (unknown) date) unknown) (unknown) (no (unknown) (unknown) 14:30 (units (unkno wn) date) unknown) (unknown) (no (unknown) (unknown) 14:40 08/25/22 (units (unknown) date) unknown) (unknown) (no (unknown) (unknown) 15:00 08/25/22 (units (unknown) date) unknown) (unknown) (no (unknown) (unknown) 15:00 (units (unkno wn) date) unknown) (unknown) (no (unknown) (unknown) 15:20 08/25/22 (units (unknown) date) unknown) (unknown) (no (unknown) (unknown) 15:20 (units (unkno wn) date) unknown) (unknown) (no (unknown) (unknown) 15:30 08/25/22 (units (unknown) date) unknown) (unknown) (no (unknown) (unknown) 15:40 08/25/22 (units (unknown) date) unknown) (unknown) (no (unknown) (unknown) 15:40 (units (unkno wn) date) unknown) (unknown) (no (unknown) (unknown) 15:41 15:47 (units (un known) date) unknown) (unknown) (no (unknown) (unknown) 16:00 08/25/22 (units (unknown) date) unknown) (unknown) (no (unknown) (unknown) 16:20 08/25/22 (units (unknown) date) unknown) (unknown) (no (unknown) (unknown) 16:20 (units (unkno wn) date) unknown) (unknown) (no (unknown) (unknown) 16:35 08/25/22 (units (unknown) date) unknown) (unknown) (no (unknown) (unknown) 16:37 08/25/22 (units (unknown) date) unknown) (unknown) (no (unknown) (unknown) 16:37 (units (unkno wn) date) unknown) (unknown) (no (unknown) (unknown) 16:40 08/25/22 (units (unknown) date) unknown) (unknown) (no (unknown) (unknown) 16:40 (units (unkno wn) date) unknown) (unknown) (no (unknown) (unknown) 17:00 08/25/22 (units (unknown) date) unknown) (unknown) (no (unknown) (unknown) 17:21 08/25/22 (units (unknown) date) unknown) (unknown) (no (unknown) (unknown) 17:21 (units (unkno wn) date) unknown) (unknown) (no (unknown) (unknown) 17:30 08/25/22 (units (unknown) date) unknown) (unknown) (no (unknown) (unknown) 18:00 08/25/22 (units (unknown) date) unknown) (unknown) (no (unknown) (unknown) 18:00 (units (unkno wn) date) unknown) (unknown) (no (unknown) (unknown) 18:20 08/25/22 (units (unknown) date) unknown) (unknown) (no (unknown) (unknown) 18:20 (units (unkno wn) date) unknown) (unknown) (no (unknown) (unknown) 18:30 08/25/22 (units (unknown) date) unknown) (unknown) (no (unknown) (unknown) 18:44 08/25/22 (units (unknown) date) unknown) (unknown) (no (unknown) (unknown) 18:44 (units (unkno wn) date) unknown) (unknown) (no (unknown) (unknown) 2 puff INHALATION (units (unknown) date) Q4HR PRN (Reason: unknown) Shortness Of Breath Or Wheezing) (unknown) (no (unknown) (unknown) 2. No evidence of (units (unknown) date) small-bowel unknown) obstruction.? (unknown) (no (unknown) (unknown) 2. Please (units (unkn own) date) understand that we unknown) cannot provide further refills of narcotics, (unknown) (no (unknown) (unknown) 20 mg PO BID (units (u nknown) date) unknown) (unknown) (no (unknown) (unknown) 3. While on these (units (unknown) date) medications you unknown) cannot drive or operate heavy machinery. (unknown) (no (unknown) (unknown) 4 mg PO Q8-12H PRN (units (unknown) date) (Reason: nausea and unknown) vomiting) Qty: 14 0RF (unknown) (no (unknown) (unknown) 4 mg PO Q8H PRN (units (unknown) date) (Reason: nausea and unknown) vomiting) Qty: 10 0RF (unknown) (no (unknown) (unknown) 4. You cannot sign (units (unknown) date) legal documents or unknown) perform any duties such as this. (unknown) (no (unknown) (unknown) 5. As long as (units ( unknown) date) you're taking opiate unknown) pain medications he should also be taking a (unknown) (no (unknown) (unknown) ? (units (unkno wn) date) unknown) (unknown) (no (unknown) (unknown) ABDOMEN: Soft, (units (unknown) date) diffusely tender unknown) over both right and left (unknown) (no (unknown) (unknown) ALT (<35) IU/L (units (unknown) date) unknown) (unknown) (no (unknown) (unknown) ALT 18 (<35) IU/L (units (unknown) date) unknown) (unknown) (no (unknown) (unknown) AST (14-36) IU/L (units (unknown) date) unknown) (unknown) (no (unknown) (unknown) AST 22 (14-36) IU/L (unit s (unknown) date) unknown) (unknown) (no (unknown) (unknown) Activity (units (unkno wn) date) Restrictions/Additio unknown) nal Instructions: (unknown) (no (unknown) (unknown) Admin: 08/25/22 (units (unknown) date) 15:58 Dose: 1,000 unknown) mls/hr (unknown) (no (unknown) (unknown) Adrenals: No (units (u nknown) date) hypertrophy or unknown) nodules. (unknown) (no (unknown) (unknown) After the (units (unkn own) date) administration of unknown) intravenous contrast, axial sections acquired from (unknown) (no (unknown) (unknown) Age/Sex: 36 / F (units (unknown) date) unknown) (unknown) (no (unknown) (unknown) Albumin (3.5-5.0) (units (unknown) date) g/dL unknown) (unknown) (no (unknown) (unknown) Albumin 4.4 (units (un known) date) (3.5-5.0) g/dL unknown) (unknown) (no (unknown) (unknown) Albumin/Globulin (units (unknown) date) Ratio (1.0-2.8) unknown) (unknown) (no (unknown) (unknown) Albumin/Globulin (units (unknown) date) Ratio 1.3 (1.0-2.8) unknown) (unknown) (no (unknown) (unknown) Alkaline (units (unkno wn) date) Phosphatase (38-126) unknown) U/L (unknown) (no (unknown) (unknown) Alkaline (units (unkno wn) date) Phosphatase 44 unknown) (38-126) U/L (unknown) (no (unknown) (unknown) Allergies (units (unkn own) date) unknown) (unknown) (no (unknown) (unknown) Allergy/AdvReac (units (unknown) date) Type Severity unknown) Reaction Status Date / Time (unknown) (no (unknown) (unknown) Anesthesia (units (unk nown) date) unknown) (unknown) (no (unknown) (unknown) Anxiety (units (unkno wn) date) unknown) (unknown) (no (unknown) (unknown) BUN (7-17) mg/dL (units (unknown) date) unknown) (unknown) (no (unknown) (unknown) BUN 12 (7-17) mg/dL (unit s (unknown) date) unknown) (unknown) (no (unknown) (unknown) BUN/Creatinine (units (unknown) date) Ratio (6-22) unknown) (unknown) (no (unknown) (unknown) BUN/Creatinine (units (unknown) date) Ratio 20.3 (6-22) unknown) (unknown) (no (unknown) (unknown) Baso # (Auto) (units ( unknown) date) (0-100) /uL unknown) (unknown) (no (unknown) (unknown) Baso # (Auto) 100 (units (unknown) date) (0-100) /uL unknown) (unknown) (no (unknown) (unknown) Baso % (Auto) (0-2) (unit s (unknown) date) % unknown) (unknown) (no (unknown) (unknown) Baso % (Auto) 1.1 (units (unknown) date) (0-2) % unknown) (unknown) (no (unknown) (unknown) Bedside Urine (units ( unknown) date) Bilirubin - Negative unknown) (unknown) (no (unknown) (unknown) Bedside Urine (units ( unknown) date) Glucose Negative unknown) (unknown) (no (unknown) (unknown) Bedside Urine (units ( unknown) date) Ketone - Negative unknown) (unknown) (no (unknown) (unknown) Bedside Urine (units ( unknown) date) Leukocytes - unknown) Negative (unknown) (no (unknown) (unknown) Bedside Urine (units ( unknown) date) Nitrite - Negative unknown) (unknown) (no (unknown) (unknown) Bedside Urine (units ( unknown) date) Occult Blood - unknown) Negative (unknown) (no (unknown) (unknown) Bedside Urine (units ( unknown) date) Protein +/- 15 unknown) (unknown) (no (unknown) (unknown) Bedside Urine (units ( unknown) date) Urobilinogen - unknown) Negative (unknown) (no (unknown) (unknown) Bedside Urine pH (units (unknown) date) 8.0 unknown) (unknown) (no (unknown) (unknown) Biliary: Status (units (unknown) date) post unknown) cholecystectomy. (unknown) (no (unknown) (unknown) Blood Pressure (units (unknown) date) 101/62 unknown) (unknown) (no (unknown) (unknown) Blood Pressure (units (unknown) date) 101/70 unknown) (unknown) (no (unknown) (unknown) Blood Pressure (units (unknown) date) 104/64 95/60 unknown) (unknown) (no (unknown) (unknown) Blood Pressure (units (unknown) date) 105/65 unknown) (unknown) (no (unknown) (unknown) Blood Pressure (units (unknown) date) 106/ unknown) (unknown) (no (unknown) (unknown) Blood Pressure (units (unknown) date) 107/63 08/25/22 unknown) 13:24 (unknown) (no (unknown) (unknown) Blood Pressure (units (unknown) date) 107/63 104/62 unknown) (unknown) (no (unknown) (unknown) Blood Pressure (units (unknown) date) 110/71 unknown) (unknown) (no (unknown) (unknown) Blood Pressure (units (unknown) date) 91/59 L unknown) (unknown) (no (unknown) (unknown) Blood Pressure (units (unknown) date) 95/57 L unknown) (unknown) (no (unknown) (unknown) Blood Pressure (units (unknown) date) 95/64 unknown) (unknown) (no (unknown) (unknown) Blood Pressure (units (unknown) date) 98/62 96/63 unknown) (unknown) (no (unknown) (unknown) Blood Pressure (units (unknown) date) 99/61 116/66 unknown) (unknown) (no (unknown) (unknown) Bones:? No (units (unk nown) date) suspicious bony unknown) lesions.? No vertebral body compression fractures.? (unknown) (no (unknown) (unknown) Bright red rectal (units (unknown) date) bleeding, unknown) Gastroenteritis (unknown) (no (unknown) (unknown) Brother Kidney (units (unknown) date) disease unknown) (unknown) (no (unknown) (unknown) C. difficile Tox (units (unknown) date) (PCR) (Not Detect) unknown) (unknown) (no (unknown) (unknown) C. difficile Tox (units (unknown) date) (PCR) Not detected unknown) (Not Detect) (unknown) (no (unknown) (unknown) CARDIOVASCULAR: (units (unknown) date) Regular rate and unknown) rhythm without murmurs, rubs or gallops. (unknown) (no (unknown) (unknown) [facility], CT unknown) ABDOMEN PELVIS W CON, 01/17/2021, 23:35. (unknown) (no (unknown) (unknown) CONTROLLED (units (unk nown) date) SUBSTANCE DISCHARGE unknown) (Narcotoic/benzodiaz epine/Flexeril/Phene rgan) (unknown) (no (unknown) (unknown) CT abdomen pelvis w (unit s (unknown) date) con Stat unknown) (unknown) (no (unknown) (unknown) CT scan - (units (unkn own) date) abdomen/pelvis: unknown) (unknown) (no (unknown) (unknown) Calcium (8.4-10.2) (units (unknown) date) mg/dL unknown) (unknown) (no (unknown) (unknown) Calcium 8.6 (units (un known) date) (8.4-10.2) mg/dL unknown) (unknown) (no (unknown) (unknown) Campylobacter (PCR) (unit s (unknown) date) (Not Detect) unknown) (unknown) (no (unknown) (unknown) Campylobacter (PCR) (unit s (unknown) date) Not detected (Not unknown) Detect) (unknown) (no (unknown) (unknown) Carbon Dioxide (units (unknown) date) (22-32) mmol/L unknown) (unknown) (no (unknown) (unknown) Carbon Dioxide 25 (units (unknown) date) (22-32) mmol/L unknown) (unknown) (no (unknown) (unknown) 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 unknown) (unknown) (no (unknown) (unknown) Chief Complaint: (units (unknown) date) Abdominal Pain unknown) (unknown) (no (unknown) (unknown) Chloride (98-107) (units (unknown) date) mmol/L unknown) (unknown) (no (unknown) (unknown) Chloride 105 (units (u nknown) date) (98-107) mmol/L unknown) (unknown) (no (unknown) (unknown) Clinical (units (unkno wn) date) Impression: unknown) (unknown) (no (unknown) (unknown) Complete Blood (units (unknown) date) Count AUTO DIFF Stat unknown) (unknown) (no (unknown) (unknown) Comprehensive (units ( unknown) date) Metabolic Panel Stat unknown) (unknown) (no (unknown) (unknown) Course (units (unkno wn) date) unknown) (unknown) (no (unknown) (unknown) Creatinine (units (unk nown) date) (0.52-1.04) mg/dL unknown) (unknown) (no (unknown) (unknown) Creatinine 0.59 (units (unknown) date) (0.52-1.04) mg/dL unknown) (unknown) (no (unknown) (unknown) : 1985 (units (unknown) date) Acct:[id number] unknown) (unknown) (no (unknown) (unknown) Date of Service: (units (unknown) date) 08/25/22 unknown) (unknown) (no (unknown) (unknown) Departure (units (unkn own) date) unknown) (unknown) (no (unknown) (unknown) Dictated by: Mandeep (unit s (unknown) date) Jen Valdivia on unknown) 08/25/2022 at 16:30 ? (unknown) (no (unknown) (unknown) Differential (units (u nknown) date) diagnosis includes unknown) Crohn's disease, ulcerative colitis, polyp, (unknown) (no (unknown) (unknown) Dilaudid. She is (units (unknown) date) had 2 previous unknown) colonoscopies in last couple of years. (unknown) (no (unknown) (unknown) Diphenhydramine HCl (unit s (unknown) date) (Diphenhydramine 50 unknown) Mg/Ml Vial) 25 mg IV NOW ONE (unknown) (no (unknown) (unknown) Discharge Plan (units (unknown) date) unknown) (unknown) (no (unknown) (unknown) Discontinued (units (u nknown) date) Medications unknown) (unknown) (no (unknown) (unknown) Documented By: BS (units (unknown) date) unknown) (unknown) (no (unknown) (unknown) Documented By: KM (units (unknown) date) unknown) (unknown) (no (unknown) (unknown) Documented By: SB (units (unknown) date) unknown) (unknown) (no (unknown) (unknown) ED Orders (units (unkn own) date) unknown) (unknown) (no (unknown) (unknown) ER Physician: (units ( unknown) date) Vania Delgado D.O. unknown) (unknown) (no (unknown) (unknown) EXTREMITIES: Normal (unit s (unknown) date) range of motion, no unknown) clubbing or edema. Neurovascularly (unknown) (no (unknown) (unknown) Emergency Report (units (unknown) date) unknown) (unknown) (no (unknown) (unknown) 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 (units ( unknown) date) unknown) (unknown) (no (unknown) (unknown) Eos # (Auto) (units (u nknown) date) (0-450) /uL unknown) (unknown) (no (unknown) (unknown) Eos # (Auto) 300 (units (unknown) date) (0-450) /uL unknown) (unknown) (no (unknown) (unknown) Eos % (Auto) (2-4) (units (unknown) date) % unknown) (unknown) (no (unknown) (unknown) Eos % (Auto) 3.7 (units (unknown) date) (2-4) % unknown) (unknown) (no (unknown) (unknown) Esterase (units (unkno wn) date) unknown) (unknown) (no (unknown) (unknown) Estimated GFR > 60 (units (unknown) date) (>60) mL/min unknown) (unknown) (no (unknown) (unknown) Estimated GFR (>60) (unit s (unknown) date) mL/min unknown) (unknown) (no (unknown) (unknown) Exam (units (unkno wn) date) unknown) (unknown) (no (unknown) (unknown) FINDINGS: (units (unkn own) date) unknown) (unknown) (no (unknown) (unknown) Family History (units (unknown) date) (Reviewed 08/25/22 @ unknown) 15:53 by Vania Delgado DO) (unknown) (no (unknown) (unknown) Father Prostate (units (unknown) date) cancer unknown) (unknown) (no (unknown) (unknown) Fatigue (units (unkno wn) date) unknown) (unknown) (no (unknown) (unknown) Food sticks on (units (unknown) date) swallowing unknown) (unknown) (no (unknown) (unknown) For (units (unkno wn) date) unknown) (unknown) (no (unknown) (unknown) Fractures (units (unkn own) date) unknown) (unknown) (no (unknown) (unknown) GENERAL: Alert (units (unknown) date) 36-year-old female unknown) appears very uncomfortable and in no acute (unknown) (no (unknown) (unknown) GERD (units (unkno wn) date) (gastroesophageal unknown) reflux disease) (unknown) (no (unknown) (unknown) GI Panel (Film (units (unknown) date) Array) Stat unknown) (unknown) (no (unknown) (unknown) : No CVA (units (unk nown) date) tenderness unknown) (unknown) (no (unknown) (unknown) Gatorade product. (units (unknown) date) May increase diet as unknown) tolerated. If you her dizzy or (unknown) (no (unknown) (unknown) General (units (unkno wn) date) unknown) (unknown) (no (unknown) (unknown) Genitourinary:? The (unit s (unknown) date) bladder has no wall unknown) thickening or mass. No bladder (unknown) (no (unknown) (unknown) Globulin (1.7-4.1) (units (unknown) date) g/dL unknown) (unknown) (no (unknown) (unknown) Globulin 3.4 (units (u nknown) date) (1.7-4.1) g/dL unknown) (unknown) (no (unknown) (unknown) Glucose (70-100) (units (unknown) date) mg/dL unknown) (unknown) (no (unknown) (unknown) Glucose 110 H (units ( unknown) date) (70-100) mg/dL unknown) (unknown) (no (unknown) (unknown) Grandmother Breast (units (unknown) date) cancer unknown) (unknown) (no (unknown) (unknown) HEENT: Head (units (un known) date) atraumatic,EOMI, unknown) pupils reactive, face symmetric, moist mucous (unknown) (no (unknown) (unknown) HPI - Abdominal (units (unknown) date) Pain unknown) (unknown) (no (unknown) (unknown) HPI narrative: (units (unknown) date) unknown) (unknown) (no (unknown) (unknown) Hct 38.0 (36-46) % (units (unknown) date) unknown) (unknown) (no (unknown) (unknown) Hct 42.3 (36-46) % (units (unknown) date) unknown) (unknown) (no (unknown) (unknown) Headache (units (unkno wn) date) unknown) (unknown) (no (unknown) (unknown) Heavy menstrual (units (unknown) date) period unknown) (unknown) (no (unknown) (unknown) Hemoglobin and (units (unknown) date) Hematocrit Stat unknown) (unknown) (no (unknown) (unknown) Hgb 12.8 (units (unkno wn) date) (12.0-16.0) g/dL unknown) (unknown) (no (unknown) (unknown) Hgb 14.1 (units (unkno wn) date) (12.0-16.0) g/dL unknown) (unknown) (no (unknown) (unknown) History of Present (units (unknown) date) Illness unknown) (unknown) (no (unknown) (unknown) History of brain (units (unknown) date) surgery unknown) (unknown) (no (unknown) (unknown) History of cone (units (unknown) date) biopsy of cervix unknown) (unknown) (no (unknown) (unknown) 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 (units (u nknown) date) unknown) (unknown) (no (unknown) (unknown) INDICATIONS:? ab (units (unknown) date) pain hx of sbo unknown) (unknown) (no (unknown) (unknown) INJECT CONTENTS OF (units (unknown) date) 1 PEN NEEDED FOR unknown) ANAPHYLAXIS (unknown) (no (unknown) (unknown) Image quality:? (units (unknown) date) Excellent.? unknown) (unknown) (no (unknown) (unknown) Imaging Data (units (u nknown) date) unknown) (unknown) (no (unknown) (unknown) Initial Vital Signs (unit s (unknown) date) unknown) (unknown) (no (unknown) (unknown) Initial Vital (units ( unknown) date) Signs: unknown) (unknown) (no (unknown) (unknown) Instructions: DI (units (unknown) date) for Viral unknown) Gastroenteritis -- Adult, DI for Rectal Bleeding (unknown) (no (unknown) (unknown) Irritable bowel (units (unknown) date) syndrome unknown) (unknown) (no (unknown) (unknown) [facility] (units (unknown) date) [address] unknown) [place] [address] (unknown) (no (unknown) (unknown) Kidney disease (units (unknown) date) unknown) (unknown) (no (unknown) (unknown) Kidneys: No (units (un known) date) obstructive calculus unknown) or hydronephrosis.? No solid mass. No cystic (unknown) (no (unknown) (unknown) Lab Data (units (unkno wn) date) unknown) (unknown) (no (unknown) (unknown) Lab Results (units (un known) date) unknown) (unknown) (no (unknown) (unknown) Labs: (units (unkno wn) date) unknown) (unknown) (no (unknown) (unknown) Lactate (0.7-2.1) (units (unknown) date) mmol/L unknown) (unknown) (no (unknown) (unknown) Lactate (Lactic (units (unknown) date) Acid) Stat unknown) (unknown) (no (unknown) (unknown) Lactate 1.0 (units (un known) date) (0.7-2.1) mmol/L unknown) (unknown) (no (unknown) (unknown) Last Admin: (units (un known) date) 08/25/22 14:39 Dose: unknown) 4 mg (unknown) (no (unknown) (unknown) Last Admin: (units (un known) date) 08/25/22 15:58 Dose: unknown) 0.5 mg (unknown) (no (unknown) (unknown) Last Admin: (units (un known) date) 08/25/22 15:58 Dose: unknown) 25 mg (unknown) (no (unknown) (unknown) Last Admin: (units (un known) date) 08/25/22 15:58 Dose: unknown) 4 mg (unknown) (no (unknown) (unknown) Last Admin: (units (un known) date) 08/25/22 18:36 Dose: unknown) 0.5 mg (unknown) (no (unknown) (unknown) Last Admin: (units (un known) date) 08/25/22 18:36 Dose: unknown) 1 bottle (unknown) (no (unknown) (unknown) Last Infusion: (units (unknown) date) 08/25/22 17:17 Dose: unknown) 0 mls/hr (unknown) (no (unknown) (unknown) Lipase (23-300) U/L (unit s (unknown) date) unknown) (unknown) (no (unknown) (unknown) Lipase 246 (23-300) (unit s (unknown) date) U/L unknown) (unknown) (no (unknown) (unknown) Lipase Stat (units (un known) date) unknown) (unknown) (no (unknown) (unknown) Liver: The liver (units (unknown) date) has no mass or unknown) intrahepatic biliary ductal dilatation. The (unknown) (no (unknown) (unknown) Lung bases:? Lung (units (unknown) date) bases are clear.? unknown) Heart size is normal. (unknown) (no (unknown) (unknown) Lymph # (Auto) (units (unknown) date) (1059-4412) /uL unknown) (unknown) (no (unknown) (unknown) Lymph # (Auto) 1900 (unit s (unknown) date) (9167-0678) /uL unknown) (unknown) (no (unknown) (unknown) Lymph % (Auto) (units (unknown) date) (25-40) % unknown) (unknown) (no (unknown) (unknown) Lymph % (Auto) 25.2 (unit s (unknown) date) (25-40) % unknown) (unknown) (no (unknown) (unknown) MCH (26-34) PG (units (unknown) date) unknown) (unknown) (no (unknown) (unknown) MCH 29.7 (26-34) PG (unit s (unknown) date) unknown) (unknown) (no (unknown) (unknown) MCHC (30-36) % (units (unknown) date) unknown) (unknown) (no (unknown) (unknown) MCHC 33.3 (30-36) % (unit s (unknown) date) unknown) (unknown) (no (unknown) (unknown) MCV (80-100) fL (units (unknown) date) unknown) (unknown) (no (unknown) (unknown) MCV 89.1 (80-100) (units (unknown) date) fL unknown) (unknown) (no (unknown) (unknown) MDM - Abdominal (units (unknown) date) Pain unknown) (unknown) (no (unknown) (unknown) MDM Narrative (units ( unknown) date) unknown) (unknown) (no (unknown) (unknown) Medical History (units (unknown) date) (Reviewed 08/25/22 @ unknown) 15:53 by Vania Delgado DO) (unknown) (no (unknown) (unknown) Medical decision (units (unknown) date) making narrative: unknown) (unknown) (no (unknown) (unknown) Medication (units (unk nown) date) Instructions unknown) Recorded Confirmed (unknown) (no (unknown) (unknown) Medication (units (unk nown) date) Instructions unknown) Recorded (unknown) (no (unknown) (unknown) Migraines (units (unkn own) date) unknown) (unknown) (no (unknown) (unknown) Miscellaneous:? No (units (unknown) date) abdominal wall mass unknown) or hernia. (unknown) (no (unknown) (unknown) Mode of arrival: (units (unknown) date) Ambulatory unknown) (unknown) (no (unknown) (unknown) [place] # (Auto) (units ( unknown) date) (0-900) /uL unknown) (unknown) (no (unknown) (unknown) [place] # (Auto) 400 (units (unknown) date) (0-900) /uL unknown) (unknown) (no (unknown) (unknown) [place] % (Auto) (units ( unknown) date) (3-14) % unknown) (unknown) (no (unknown) (unknown) [place] % (Auto) 4.9 (units (unknown) date) (3-14) % unknown) (unknown) (no (unknown) (unknown) Mother Thyroid (units (unknown) date) cancer unknown) (unknown) (no (unknown) (unknown) NEUROLOGICAL: Alert (unit s (unknown) date) and oriented unknown) x4.Normal gait and speech. (unknown) (no (unknown) (unknown) Neut # (Auto) (units ( unknown) date) (8425-0133) /uL unknown) (unknown) (no (unknown) (unknown) Neut # (Auto) 4800 (units (unknown) date) (5738-3167) /uL unknown) (unknown) (no (unknown) (unknown) Neut % (Auto) (units ( unknown) date) (50-75) % unknown) (unknown) (no (unknown) (unknown) Neut % (Auto) 65.1 (units (unknown) date) (50-75) % unknown) (unknown) (no (unknown) (unknown) New (units (unkno wn) date) unknown) (unknown) (no (unknown) (unknown) No Action (units (unkn own) date) unknown) (unknown) (no (unknown) (unknown) Nodes and vessels:? (unit s (unknown) date) No retroperitoneal unknown) or mesenteric adenopathy by size (unknown) (no (unknown) (unknown) [place] 1 tablet (units (unknown) date) every 6 hours if unknown) needed for severe pain (unknown) (no (unknown) (unknown) ONE (units (unkno wn) date) unknown) (unknown) (no (unknown) (unknown) Ondansetron HCl (units (unknown) date) (Ondansetron 4 Mg unknown) Odt Prepack) 1 bottle MISC SEEINSTR ONE (unknown) (no (unknown) (unknown) Ondansetron HCl (units (unknown) date) (Ondansetron 4 Mg unknown) Odt) 4 mg PO NOW PRN (unknown) (no (unknown) (unknown) Ondansetron HCl (units (unknown) date) (Ondansetron 4 Mg/2 unknown) Ml Inj) 4 mg IV NOW ONE (unknown) (no (unknown) (unknown) Ondansetron HCl (units (unknown) date) (Ondansetron 4 Mg/2 unknown) Ml Inj) 4 mg IV NOW PRN (unknown) (no (unknown) (unknown) Ordered: (units (unkno wn) date) unknown) (unknown) (no (unknown) (unknown) Orders (units (unkno wn) date) unknown) (unknown) (no (unknown) (unknown) Ovarian cyst (units (u nknown) date) unknown) (unknown) (no (unknown) (unknown) Oxycodone/Acetamino (unit s (unknown) date) phen (Oxycodone/Apap unknown) 5/325 Prepack) 1 bottle MISC SEEINSTR (unknown) (no (unknown) (unknown) Oxygen Delivery (units (unknown) date) Method Room Air unknown) 08/25/22 13:24 (unknown) (no (unknown) (unknown) Oxygen Delivery (units (unknown) date) Method Room Air unknown) (unknown) (no (unknown) (unknown) Oxygen Delivery (units (unknown) date) Method unknown) (unknown) (no (unknown) (unknown) PELVIS:? (units (unkno wn) date) unknown) (unknown) (no (unknown) (unknown) PRN Reason: Nausea (units (unknown) date) And Vomiting unknown) (unknown) (no (unknown) (unknown) PROCEDURE:? CT (units (unknown) date) ABDOMEN PELVIS W CON unknown) (unknown) (no (unknown) (unknown) Pancreas: The (units (u nknown) date) pancreas has no mass unknown) or ductal dilatation. There is no surrounding (unknown) (no (unknown) (unknown) Patient 36-year-old (unit s (unknown) date) female who has had unknown) previous colonoscopies for rectal (unknown) (no (unknown) (unknown) Patient Comments: (units (unknown) date) unknown) (unknown) (no (unknown) (unknown) Patient (units (unkno wn) date) Disposition: Home unknown) (unknown) (no (unknown) (unknown) Patient History (units (unknown) date) unknown) (unknown) (no (unknown) (unknown) Patient is a (units (u nknown) date) 36-year-old female unknown) has a history of polycystic kidney disease, (unknown) (no (unknown) (unknown) Patient: (units (unkno wn) date) [place] unknown) MR#: [id number] (unknown) (no (unknown) (unknown) Penic[place]ins Allergy (unit s (unknown) date) Severe Anaphylaxis unknown) Verified 08/25/22 13:30 (unknown) (no (unknown) (unknown) Perforated ulcer (units (unknown) date) unknown) (unknown) (no (unknown) (unknown) Peritoneum and (units (unknown) date) bowel:? The distal unknown) esophagus and stomach are normal.? The small (unknown) (no (unknown) (unknown) Plt Count (150-400) (unit s (unknown) date) X103/uL unknown) (unknown) (no (unknown) (unknown) Plt Count 273 (units ( unknown) date) (150-400) X103/uL unknown) (unknown) (no (unknown) (unknown) Point of Care (units ( unknown) date) Testing unknown) (unknown) (no (unknown) (unknown) Point of care (units ( unknown) date) testing: unknown) (unknown) (no (unknown) (unknown) Polycystic kidney (units (unknown) date) disease unknown) (unknown) (no (unknown) (unknown) Potassium (3.4-5.1) (unit s (unknown) date) mmol/L unknown) (unknown) (no (unknown) (unknown) Potassium 3.7 (units ( unknown) date) (3.4-5.1) mmol/L unknown) (unknown) (no (unknown) (unknown) Test (units (unknown) date) Results Negative unknown) (unknown) (no (unknown) (unknown) Prescriptions: (units (unknown) date) unknown) (unknown) (no (unknown) (unknown) Previous Rx's (units ( unknown) date) unknown) (unknown) (no (unknown) (unknown) Pulse Oximetry 100 (units (unknown) date) 08/25/22 13:24 unknown) (unknown) (no (unknown) (unknown) Pulse Oximetry 100 (units (unknown) date) 100 unknown) (unknown) (no (unknown) (unknown) Pulse Oximetry 100 (units (unknown) date) 97 unknown) (unknown) (no (unknown) (unknown) Pulse Oximetry 100 (units (unknown) date) 99 unknown) (unknown) (no (unknown) (unknown) Pulse Oximetry 100 (units (unknown) date) unknown) (unknown) (no (unknown) (unknown) Pulse Oximetry 94 (units (unknown) date) 96 unknown) (unknown) (no (unknown) (unknown) Pulse Oximetry 96 (units (unknown) date) 100 unknown) (unknown) (no (unknown) (unknown) Pulse Oximetry 98 (units (unknown) date) 98 unknown) (unknown) (no (unknown) (unknown) Pulse Oximetry 99 (units (unknown) date) 98 unknown) (unknown) (no (unknown) (unknown) Pulse Oximetry 99 (units (unknown) date) unknown) (unknown) (no (unknown) (unknown) Pulse Rate 64 81 (units (unknown) date) unknown) (unknown) (no (unknown) (unknown) Pulse Rate 64 (units ( unknown) date) unknown) (unknown) (no (unknown) (unknown) Pulse Rate 65 67 (units (unknown) date) unknown) (unknown) (no (unknown) (unknown) Pulse Rate 68 62 (units (unknown) date) unknown) (unknown) (no (unknown) (unknown) Pulse Rate 72 67 (units (unknown) date) unknown) (unknown) (no (unknown) (unknown) Pulse Rate 72 73 (units (unknown) date) unknown) (unknown) (no (unknown) (unknown) Pulse Rate 72 (units ( unknown) date) unknown) (unknown) (no (unknown) (unknown) Pulse Rate 74 77 (units (unknown) date) unknown) (unknown) (no (unknown) (unknown) Pulse Rate 75 64 (units (unknown) date) unknown) (unknown) (no (unknown) (unknown) Pulse Rate 76 (units ( unknown) date) 08/25/22 13:24 unknown) (unknown) (no (unknown) (unknown) Pulse Rate 76 74 (units (unknown) date) unknown) (unknown) (no (unknown) (unknown) Pulse Rate 76 (units ( unknown) date) unknown) (unknown) (no (unknown) (unknown) Pulse Rate 77 66 (units (unknown) date) unknown) (unknown) (no (unknown) (unknown) RBC (4.0-5.2) (units ( unknown) date) X106/uL unknown) (unknown) (no (unknown) (unknown) RBC 4.75 (4.0-5.2) (units (unknown) date) X106/uL unknown) (unknown) (no (unknown) (unknown) RDW (11.6-14.8) % (units (unknown) date) unknown) (unknown) (no (unknown) (unknown) RDW 12.9 (units (unkno wn) date) (11.6-14.8) % unknown) (unknown) (no (unknown) (unknown) RECTAL: No external (unit s (unknown) date) hemorrhoids no blood unknown) no stool in vault (unknown) (no (unknown) (unknown) RESPIRATORY: Breath (unit s (unknown) date) sounds equal unknown) bilaterally, no wheezes rales or rhonchi. (unknown) (no (unknown) (unknown) ROS Unobtainable: (units (unknown) date) All systems reviewed unknown) + are unremarkable except as noted in HPI (unknown) (no (unknown) (unknown) Radiologist's (units ( unknown) date) Impression: unknown) (unknown) (no (unknown) (unknown) Related Data (units (u nknown) date) unknown) (unknown) (no (unknown) (unknown) Respiratory Rate 20 (unit s (unknown) date) 08/25/22 13:24 unknown) (unknown) (no (unknown) (unknown) Respiratory Rate 20 (unit s (unknown) date) unknown) (unknown) (no (unknown) (unknown) Respiratory Rate (units (unknown) date) unknown) (unknown) (no (unknown) (unknown) Restless leg (units (u nknown) date) syndrome unknown) (unknown) (no (unknown) (unknown) Review of Systems (units (unknown) date) unknown) (unknown) (no (unknown) (unknown) Rheumatic fever (units (unknown) date) unknown) (unknown) (no (unknown) (unknown) SKIN: Warm, dry, no (unit s (unknown) date) laceration, no unknown) petechiae, no rashes or lesions. (unknown) (no (unknown) (unknown) Salmonella (PCR) (units (unknown) date) (Not Detect) unknown) (unknown) (no (unknown) (unknown) Salmonella (PCR) (units (unknown) date) Not detected (Not unknown) Detect) (unknown) (no (unknown) (unknown) Signed By: (units (unk nown) date) unknown) (unknown) (no (unknown) (unknown) Sister Kidney (units ( unknown) date) disease unknown) (unknown) (no (unknown) (unknown) Smoking Status: (units (unknown) date) Never smoker unknown) (unknown) (no (unknown) (unknown) Social History (units (unknown) date) (Reviewed 08/25/22 @ unknown) 15:53 by Vania Delgado DO) (unknown) (no (unknown) (unknown) Sodium (137-145) (units (unknown) date) mmol/L unknown) (unknown) (no (unknown) (unknown) Sodium 139 (units (unk nown) date) (137-145) mmol/L unknown) (unknown) (no (unknown) (unknown) Sodium Chloride (units (unknown) date) (Normal Saline 0.9%) unknown) 1,000 mls @ 1,000 mls/hr IV BOLUS ONE (unknown) (no (unknown) (unknown) Solid organs:? (units (unknown) date) unknown) (unknown) (no (unknown) (unknown) Source: patient (units (unknown) date) unknown) (unknown) (no (unknown) (unknown) Spleen: Normal (units (unknown) date) size. There are no unknown) masses. (unknown) (no (unknown) (unknown) St Sh/Enteroin (units (unknown) date) Ecoli PCR (Not unknown) Detect) (unknown) (no (unknown) (unknown) St Sh/Enteroin (units (unknown) date) Ecoli PCR Not unknown) detected (Not Detect) (unknown) (no (unknown) (unknown) St Y.enterocolitica (unit s (unknown) date) PCR (Not Detect) unknown) (unknown) (no (unknown) (unknown) St Y.enterocolitica (unit s (unknown) date) PCR Not detected unknown) (Not Detect) (unknown) (no (unknown) (unknown) Stand Alone Forms: (units (unknown) date) Patient Portal/API, unknown) Work Release Note (unknown) (no (unknown) (unknown) Stated Complaint: (units (unknown) date) blood in stool, abd unknown) pain, cant keep food down (unknown) (no (unknown) (unknown) Status post (units (un known) date) appendectomy unknown) (unknown) (no (unknown) (unknown) Status post (units (un known) date) cholecystectomy unknown) (unknown) (no (unknown) (unknown) Stl C. cayetanensis (unit s (unknown) date) PCR (Not Detect) unknown) (unknown) (no (unknown) (unknown) Stl C. cayetanensis (unit s (unknown) date) PCR Not detected unknown) (Not Detect) (unknown) (no (unknown) (unknown) Stl E. histolytica (units (unknown) date) PCR (Not Detect) unknown) (unknown) (no (unknown) (unknown) Stl E. histolytica (units (unknown) date) PCR Not detected unknown) (Not Detect) (unknown) (no (unknown) (unknown) Stl E.coli Shiga (units (unknown) date) Tox PCR (Not Detect) unknown) (unknown) (no (unknown) (unknown) Stl E.coli Shiga (units (unknown) date) Tox PCR Not detected unknown) (Not Detect) (unknown) (no (unknown) (unknown) Stl Enteroaggr (units (unknown) date) Ecoli PCR (Not unknown) Detect) (unknown) (no (unknown) (unknown) Stl Enteroaggr (units (unknown) date) Ecoli PCR Not unknown) detected (Not Detect) (unknown) (no (unknown) (unknown) Stl Enterotoxigenic (unit s (unknown) date) E PCR (Not Detect) unknown) (unknown) (no (unknown) (unknown) Stl Enterotoxigenic (unit s (unknown) date) E PCR Not detected unknown) (Not Detect) (unknown) (no (unknown) (unknown) Stl Norovirus (units ( unknown) date) GI/GII PCR (Not unknown) Detect) (unknown) (no (unknown) (unknown) Stl Norovirus (units ( unknown) date) GI/GII PCR Not unknown) detected (Not Detect) (unknown) (no (unknown) (unknown) Stl P. shigelloides (unit s (unknown) date) PCR (Not Detect) unknown) (unknown) (no (unknown) (unknown) Stl P. shigelloides (unit s (unknown) date) PCR Not detected unknown) (Not Detect) (unknown) (no (unknown) (unknown) Stl Vibrio cholerae (unit s (unknown) date) PCR (Not Detect) unknown) (unknown) (no (unknown) (unknown) Stl Vibrio cholerae (unit s (unknown) date) PCR Not detected unknown) (Not Detect) (unknown) (no (unknown) (unknown) Stool Adenovirus (units (unknown) date) (PCR) (Not Detect) unknown) (unknown) (no (unknown) (unknown) Stool Adenovirus (units (unknown) date) (PCR) Not detected unknown) (Not Detect) (unknown) (no (unknown) (unknown) Stool Astrovirus (units (unknown) date) (PCR) (Not Detect) unknown) (unknown) (no (unknown) (unknown) Stool Astrovirus (units (unknown) date) (PCR) Not detected unknown) (Not Detect) (unknown) (no (unknown) (unknown) Stool (units (unkno wn) date) Cryptosporidium PCR unknown) (Not Detect) (unknown) (no (unknown) (unknown) Stool (units (unkno wn) date) Cryptosporidium PCR unknown) Not detected (Not Detect) (unknown) (no (unknown) (unknown) Stool E coli O157 (units (unknown) date) PCR Not Reportable unknown) (unknown) (no (unknown) (unknown) Stool E coli O157 (units (unknown) date) PCR unknown) (unknown) (no (unknown) (unknown) Stool EPEC (PCR) (units (unknown) date) (Not Detect) unknown) (unknown) (no (unknown) (unknown) Stool EPEC (PCR) (units (unknown) date) Not detected (Not unknown) Detect) (unknown) (no (unknown) (unknown) Stool Giardia (units ( unknown) date) Lamblia PCR (Not unknown) Detect) (unknown) (no (unknown) (unknown) Stool Giardia (units ( unknown) date) Lamblia PCR Not unknown) detected (Not Detect) (unknown) (no (unknown) (unknown) Stool Rotavirus (units (unknown) date) (PCR) (Not Detect) unknown) (unknown) (no (unknown) (unknown) Stool Rotavirus (units (unknown) date) (PCR) Not detected unknown) (Not Detect) (unknown) (no (unknown) (unknown) Stool Sapovirus (units (unknown) date) (PCR) (Not Detect) unknown) (unknown) (no (unknown) (unknown) Stool Sapovirus (units (unknown) date) (PCR) Not detected unknown) (Not Detect) (unknown) (no (unknown) (unknown) Stool Vibrio (PCR) (units (unknown) date) (Not Detect) unknown) (unknown) (no (unknown) (unknown) Stool Vibrio (PCR) (units (unknown) date) Not detected (Not unknown) Detect) (unknown) (no (unknown) (unknown) Stop: 08/25/22 (units (unknown) date) 15:45 unknown) (unknown) (no (unknown) (unknown) Stop: 08/25/22 (units (unknown) date) 15:49 unknown) (unknown) (no (unknown) (unknown) Stop: 08/25/22 (units (unknown) date) 15:54 unknown) (unknown) (no (unknown) (unknown) Stop: 08/25/22 (units (unknown) date) 16:42 unknown) (unknown) (no (unknown) (unknown) Stop: 08/25/22 (units (unknown) date) 18:15 unknown) (unknown) (no (unknown) (unknown) Stop: 08/25/22 (units (unknown) date) 18:16 unknown) (unknown) (no (unknown) (unknown) Substance Use Type: (unit s (unknown) date) marijuana unknown) (unknown) (no (unknown) (unknown) Surgical History (units (unknown) date) (Reviewed 08/25/22 @ unknown) 15:53 by Vania Delgado DO) (unknown) (no (unknown) (unknown) TECHNIQUE:? (units (un known) date) unknown) (unknown) (no (unknown) (unknown) Temperature 97.5 F (units (unknown) date) L 08/25/22 13:24 unknown) (unknown) (no (unknown) (unknown) Temperature 97.5 F (units (unknown) date) L unknown) (unknown) (no (unknown) (unknown) Temperature (units (un known) date) unknown) (unknown) (no (unknown) (unknown) There is very (units ( unknown) date) little stool. She unknown) has pain that moves all over abdomen she (unknown) (no (unknown) (unknown) Time Seen by (units (u nknown) date) Provider: 08/25/22 unknown) 14:37 (unknown) (no (unknown) (unknown) Total Bilirubin (units (unknown) date) (0.2-1.3) mg/dL unknown) (unknown) (no (unknown) (unknown) Total Bilirubin 0.4 (unit s (unknown) date) (0.2-1.3) mg/dL unknown) (unknown) (no (unknown) (unknown) Total Protein (units ( unknown) date) (6.3-8.2) g/dL unknown) (unknown) (no (unknown) (unknown) Total Protein 7.8 (units (unknown) date) (6.3-8.2) g/dL unknown) (unknown) (no (unknown) (unknown) Ulcerative colitis (units (unknown) date) unknown) (unknown) (no (unknown) (unknown) Urine Dip (units (unkn own) date) unknown) (unknown) (no (unknown) (unknown) Urine Specific (units (unknown) date) Morton 1.010 unknown) (unknown) (no (unknown) (unknown) Vital Signs - 8 hr (units (unknown) date) unknown) (unknown) (no (unknown) (unknown) Vital Signs (units (un known) date) unknown) (unknown) (no (unknown) (unknown) Vital signs: (units (u nknown) date) unknown) (unknown) (no (unknown) (unknown) WBC (4.5-11.0) (units (unknown) date) X103/uL unknown) (unknown) (no (unknown) (unknown) WBC 7.4 (4.5-11.0) (units (unknown) date) X103/uL unknown) (unknown) (no (unknown) (unknown) Zofran 4 mg every 8 (unit s (unknown) date) hours if needed for unknown) nausea vomiting (unknown) (no (unknown) (unknown) [Embedded Image Not (unit s (unknown) date) Available] unknown) (unknown) (no (unknown) (unknown) a normal caliber (units (unknown) date) and appearance. The unknown) terminal ileum is normal. The large bowel (unknown) (no (unknown) (unknown) abnormality. She (units (unknown) date) actually is able to unknown) tolerate fluids pain is better after (unknown) (no (unknown) (unknown) acetaminophen 500 (units (unknown) date) mg tablet 1,000 mg unknown) PO Q6H PRN Pain (Scale 01/18/21 08/25/22 (unknown) (no (unknown) (unknown) acetaminophen (units ( unknown) date) [Acetaminophen Extra unknown) Strength] 500 mg Tablet (unknown) (no (unknown) (unknown) acetaminophen/Tylen (unit s (unknown) date) ol/paracetamol in unknown) it, DO NOT TAKE MORE THAN 4,00mg in 24 (unknown) (no (unknown) (unknown) adjustment (units (unk nown) date) unknown) (unknown) (no (unknown) (unknown) aerosol inhaler (units (unknown) date) Shortness Of Breath unknown) Or Wheezing (unknown) (no (unknown) (unknown) albuterol sulfate (units (unknown) date) 90 mcg/actuation 2 unknown) puff inhalation Q4HR PRN 01/18/21 08/25/22 (unknown) (no (unknown) (unknown) albuterol sulfate (units (unknown) date) 90 mcg/actuation Hfa unknown) Aerosol Inhaler (unknown) (no (unknown) (unknown) alcohol intake (units (unknown) date) frequency: other unknown) (unknown) (no (unknown) (unknown) alcohol intake: (units (unknown) date) never unknown) (unknown) (no (unknown) (unknown) always this (units (un known) date) unknown) (unknown) (no (unknown) (unknown) and below (units (unkn own) date) unknown) (unknown) (no (unknown) (unknown) and hepatic veins (units (unknown) date) are patent. unknown) (unknown) (no (unknown) (unknown) and inferior vena (units (unknown) date) cava are normal in unknown) size.? (unknown) (no (unknown) (unknown) appendectomy, (units ( unknown) date) cholecystectomy, unknown) sections, small-bowel obstructions (unknown) (no (unknown) (unknown) aspirin Allergy (units (unknown) date) Severe Anaphylaxis unknown) Verified 08/25/22 13:30 (unknown) (no (unknown) (unknown) bases to the pubic (units (unknown) date) symphysis.? Coronal unknown) and sagittal reformats were performed.? (unknown) (no (unknown) (unknown) benzodiazepines or (units (unknown) date) controlled unknown) substances through the ED and her pain management (unknown) (no (unknown) (unknown) bleeding. Had gross (unit s (unknown) date) serosanguineous unknown) liquid which is sent down for GI panel. Bl (unknown) (no (unknown) (unknown) blood pressures (units (unknown) date) this is true. She is unknown) ambulatory with out symptoms, at this (unknown) (no (unknown) (unknown) bowel has (units (unkn own) date) unknown) (unknown) (no (unknown) (unknown) calcifications. (units (unknown) date) unknown) (unknown) (no (unknown) (unknown) clavulanic acid (units (unknown) date) Allergy Severe unknown) Anaphylaxis Verified 08/25/22 13:30 (unknown) (no (unknown) (unknown) constipation. (units ( unknown) date) unknown) (unknown) (no (unknown) (unknown) criteria.? Aorta (units (unknown) date) unknown) (unknown) (no (unknown) (unknown) currently is very (units (unknown) date) uncomfortable. She unknown) feels a little dizzy and lightheaded. She (unknown) (no (unknown) (unknown) definitively (units (u nknown) date) unknown) (unknown) (no (unknown) (unknown) distress. (units (unkn own) date) unknown) (unknown) (no (unknown) (unknown) epinephrine 0.3 (units (unknown) date) mg/0.3 mL 0.3 mg IM unknown) PRN PRN Allergic Reaction 01/18/21 08/25/22 (unknown) (no (unknown) (unknown) epinephrine 0.3 (units (unknown) date) mg/0.3 mL unknown) auto-injector (unknown) (no (unknown) (unknown) fentanyl Allergy (units (unknown) date) Severe Anaphylaxis unknown) Verified 08/25/22 13:30 (unknown) (no (unknown) (unknown) fluticasone [From (units (unknown) date) Flonase] AdvReac unknown) Intermediate Agitated Verified 08/25/22 13:30 (unknown) (no (unknown) (unknown) found. She did have (unit s (unknown) date) partial small-bowel unknown) obstruction 2020. She reports that (unknown) (no (unknown) (unknown) gastroenteritis. (units (unknown) date) However I did unknown) discuss with her if she continues to have (unknown) (no (unknown) (unknown) gastroenteritis. I (units (unknown) date) suspect nausea and unknown) vomiting that this is more of a (unknown) (no (unknown) (unknown) has a (units (unkno wn) date) unknown) (unknown) (no (unknown) (unknown) hours of Tylenol. (units (unknown) date) unknown) (unknown) (no (unknown) (unknown) household members: (units (unknown) date) spouse and children unknown) (unknown) (no (unknown) (unknown) hydrocodone AdvReac (unit s (unknown) date) Severe Vomiting unknown) Verified 08/25/22 13:30 (unknown) (no (unknown) (unknown) inflammation. (units ( unknown) date) unknown) (unknown) (no (unknown) (unknown) injection, (units (unk nown) date) auto-injector unknown) (unknown) (no (unknown) (unknown) intact (units (unkno wn) date) unknown) (unknown) (no (unknown) (unknown) is not on any (units ( unknown) date) anticoagulation or unknown) antiplatelet medication. She has not out. No (unknown) (no (unknown) (unknown) lightheaded or have (unit s (unknown) date) persistent bleeding unknown) you may need to have your hemoglobin (unknown) (no (unknown) (unknown) lightheadedness (units (unknown) date) [or] any new, unknown) worsening or concerning symptoms (unknown) (no (unknown) (unknown) loratadine 10 mg (units (unknown) date) tablet (Claritin) 10 unknown) mg PO DAILY 01/18/21 08/25/22 (unknown) (no (unknown) (unknown) loratadine (units (unk nown) date) [Claritin] 10 mg unknown) Tablet (unknown) (no (unknown) (unknown) mass. (units (unkno wn) date) unknown) (unknown) (no (unknown) (unknown) membranes (units (unkn own) date) unknown) (unknown) (no (unknown) (unknown) methylprednisolone (units (unknown) date) Allergy Severe unknown) Agitated Verified 08/25/22 13:30 (unknown) (no (unknown) (unknown) mg tablet (units (unkn own) date) (Percocet) unknown) (unknown) (no (unknown) (unknown) morphine Allergy (units (unknown) date) Severe Hives unknown) Verified 08/25/22 13:30 (unknown) (no (unknown) (unknown) normal caliber and (units (unknown) date) appearance.? No free unknown) fluid or air.? The appendix is not (unknown) (no (unknown) (unknown) of mA and/or kV (units (unknown) date) according to patient unknown) size.? (unknown) (no (unknown) (unknown) omeprazole 20 mg (units (unknown) date) Tablet,Delayed unknown) Release (Dr/Ec) (unknown) (no (unknown) (unknown) omeprazole 20 mg (units (unknown) date) tablet,delayed 20 mg unknown) PO BID 03/07/21 08/25/22 (unknown) (no (unknown) (unknown) ondansetron 4 mg (units (unknown) date) disintegrating 4 mg unknown) PO Q8-12H PRN nausea and 02/12/22 (unknown) (no (unknown) (unknown) ondansetron 4 mg (units (unknown) date) disintegrating 4 mg unknown) PO Q8H PRN nausea and 08/25/22 (unknown) (no (unknown) (unknown) ondansetron 4 mg (units (unknown) date) tablet,disintegratin unknown) g (unknown) (no (unknown) (unknown) one else is sick at (unit s (unknown) date) home. unknown) (unknown) (no (unknown) (unknown) ood pressure is (units (unknown) date) soft in the low 100s unknown) she appears quite uncomfortable. She (unknown) (no (unknown) (unknown) over the last 24 (units (unknown) date) hours she is had 6 unknown) episodes of bright red blood per rectum. (unknown) (no (unknown) (unknown) oxycodone-acetamino (unit s (unknown) date) phen 5 mg-325 1 tab unknown) PO Q6H PRN pain #10 tabs 08/25/22 (unknown) (no (unknown) (unknown) oxycodone-acetamino (unit s (unknown) date) phen [Percocet] unknown) 5-325 mg tablet (unknown) (no (unknown) (unknown) portal vein (units (un known) date) unknown) (unknown) (no (unknown) (unknown) presenting today (units (unknown) date) with ongoing unknown) abdominal discomfort and rectal bleeding. She (unknown) (no (unknown) (unknown) previously (units (unk nown) date) small-bowel unknown) obstruction. Blood work is otherwise overall reassuring (unknown) (no (unknown) (unknown) previously (units (unk nown) date) unknown) (unknown) (no (unknown) (unknown) radiation dose (units (unknown) date) reduction, the unknown) following was used:? automated exposure control, (unknown) (no (unknown) (unknown) rechecked. Also (units (unknown) date) recommend outpatient unknown) colonoscopy even though he had been (unknown) (no (unknown) (unknown) release (units (unkno wn) date) unknown) (unknown) (no (unknown) (unknown) repeat levels. (units (unknown) date) Blood pressure is unknown) soft 90s to 100s. After looking at history of (unknown) (no (unknown) (unknown) reports that she (units (unknown) date) has had 2 unknown) colonoscopies in the last 4 years no abnormality (unknown) (no (unknown) (unknown) seen, however there (unit s (unknown) date) is no secondary CT unknown) finding of acute appendicitis. (unknown) (no (unknown) (unknown) significant blood (units (unknown) date) loss then she should unknown) return to the emergency department for (unknown) (no (unknown) (unknown) stool softener such (unit s (unknown) date) as Colace, Dulcolax, unknown) MiraLAX or prune juice, to help avoid (unknown) (no (unknown) (unknown) tablet vomiting #10 (unit s (unknown) date) tabs unknown) (unknown) (no (unknown) (unknown) tablet vomiting #14 (unit s (unknown) date) tabs unknown) (unknown) (no (unknown) (unknown) the lung (units (unkno wn) date) unknown) (unknown) (no (unknown) (unknown) time I do not (units ( unknown) date) believe her to be unknown) hypotensive GI bleed, has blood pressures are (unknown) (no (unknown) (unknown) will need to be (units (unknown) date) through your unknown) provider. (unknown) (no (unknown) (unknown) without sign of SYLVESTER (unit s (unknown) date) or anemia. Repeat unknown) H+H is also stable. CT does not show any Result panel 339 (unknown) (no (unknown) (unknown) (no value) (units (unk nown) date) unknown) (unknown) (no (unknown) (unknown) [id number] (units (unkn own) date) unknown) (unknown) (no (unknown) (unknown) 08/27/22 (units (unkno wn) date) unknown) (unknown) (no (unknown) (unknown) [address] [place] [address] (units (unknown) date) unknown) (unknown) (no (unknown) (unknown) Accession Number: (units (unknown) date) [id number] unknown) (unknown) (no (unknown) (unknown) Age/Sex: 36 / F (units (unknown) date) Date of Service: unknown) (unknown) (no (unknown) (unknown) NKECHI Parekh (units ( unknown) date) [id number] unknown) (unknown) (no (unknown) (unknown) Approved by: (units (u nknown) date) pernell Ulloa) Jen on 08/27/2022 at 18:24 (unknown) (no (unknown) (unknown) Bones and chest (units (unknown) date) wall: No unknown) suspicious bony lesions. Overlying soft tissues (unknown) (no (unknown) (unknown) COMPARISON: None. (units (unknown) date) unknown) (unknown) (no (unknown) (unknown) : 1985 (units (unknown) date) Acct:[id number] unknown) (unknown) (no (unknown) (unknown) Dictated by: (units (u nknown) date) noam Ulloa M.D. on 08/27/2022 at 18:24 (unknown) (no (unknown) (unknown) FINDINGS: (units (unkn own) date) unknown) (unknown) (no (unknown) (unknown) IMPRESSION: (units (un known) date) Possible mild unknown) right infrahilar alveolar opacity versus atelectasis. (unknown) (no (unknown) (unknown) INDICATIONS: (units (u nknown) date) chest pain unknown) (unknown) (no (unknown) (unknown) [facility] (units (unknown) date) unknown) (unknown) (no (unknown) (unknown) Loc: ED (units (unkno wn) date) unknown) (unknown) (no (unknown) (unknown) Lungs and pleura: (units (unknown) date) Possible right unknown) infrahilar alveolar opacity. No effusion or (unknown) (no (unknown) (unknown) Mediastinum: (units (u nknown) date) Mediastinal unknown) contours appear normal. Heart size is normal. (unknown) (no (unknown) (unknown) Ordering (units (unkno wn) date) Provider: unknown) Omid Wright MD (unknown) (no (unknown) (unknown) PROCEDURE: XR (units ( unknown) date) CHEST 1V unknown) (unknown) (no (unknown) (unknown) Patient: (units (unkno wn) date) Colleen Rosalesney A unknown) MR#: M (unknown) (no (unknown) (unknown) Procedure: XR (units ( unknown) date) chest 1V unknown) (unknown) (no (unknown) (unknown) Signed (units (unkno wn) date) unknown) (unknown) (no (unknown) (unknown) Surgical changes (units (unknown) date) and devices: unknown) Cholecystectomy clips.. (unknown) (no (unknown) (unknown) TECHNIQUE: One (units (unknown) date) view of the chest unknown) was acquired. (unknown) (no (unknown) (unknown) XRay Report (units (un known) date) unknown) (unknown) (no (unknown) (unknown) appear (units (unkno wn) date) unknown) (unknown) (no (unknown) (unknown) pneumothorax. (units ( unknown) date) unknown) (unknown) (no (unknown) (unknown) unremarkable. (units ( unknown) date) unknown) Result panel 340 (unknown) (no date) (unknown) (unknown) 1.2 (units unknown) (unknown) (unknown) (no date) (unknown) (unknown) 13.3 seconds (unkn own) Result panel 341 (unknown) (no date) (unknown) (unknown) 0.9 % (unkn own) (unknown) (no date) (unknown) (unknown) 100 /ul (unkn own) (unknown) (no date) (unknown) (unknown) 12.8 % (unkn own) (unknown) (no date) (unknown) (unknown) 14.3 g/dl (unkn own) (unknown) (no date) (unknown) (unknown) 200 /ul (unkn own) (unknown) (no date) (unknown) (unknown) 2100 /ul (unkn own) (unknown) (no date) (unknown) (unknown) 270 x10 3/ul (unkn own) (unknown) (no date) (unknown) (unknown) 3.6 % (unkn own) (unknown) (no date) (unknown) (unknown) 30.2 % (unkn own) (unknown) (no date) (unknown) (unknown) 30.2 pg (unkn own) (unknown) (no date) (unknown) (unknown) 300 /ul (unkn own) (unknown) (no date) (unknown) (unknown) 33.9 % (unkn own) (unknown) (no date) (unknown) (unknown) 4.75 x10 6/ul (unkn own) (unknown) (no date) (unknown) (unknown) 4.9 % (unkn own) (unknown) (no date) (unknown) (unknown) 42.3 % (unkn own) (unknown) (no date) (unknown) (unknown) 4200 /ul (unkn own) (unknown) (no date) (unknown) (unknown) 6.9 x10 3/ul (unkn own) (unknown) (no date) (unknown) (unknown) 60.4 % (unkn own) (unknown) (no date) (unknown) (unknown) 89.0 fl (unkn own) Result panel 342 (unknown) (no date) (unknown) (unknown) > 60 ml/min (unkn own) (unknown) (no date) (unknown) (unknown) > 60 ml/min (unkn own) (unknown) (no date) (unknown) (unknown) 0.5 mg/dl (unkn own) (unknown) (no date) (unknown) (unknown) 0.61 mg/dl (unkn own) (unknown) (no date) (unknown) (unknown) 1.3 (units (unkn own) unknown) (unknown) (no date) (unknown) (unknown) 10 mg/dl (unkn own) (unknown) (no date) (unknown) (unknown) 104 mmol/l (unkn own) (unknown) (no date) (unknown) (unknown) 140 mmol/l (unkn own) (unknown) (no date) (unknown) (unknown) 16.4 (units (unkn own) unknown) (unknown) (no date) (unknown) (unknown) 18 iu/l (unkn own) (unknown) (no date) (unknown) (unknown) 2.2 mg/dl (unkn own) (unknown) (no date) (unknown) (unknown) 214 u/l (unkn own) (unknown) (no date) (unknown) (unknown) 24 iu/l (unkn own) (unknown) (no date) (unknown) (unknown) 27 mmol/l (unkn own) (unknown) (no date) (unknown) (unknown) 3.5 g/dl (unkn own) (unknown) (no date) (unknown) (unknown) 3.8 mmol/l (unkn own) (unknown) (no date) (unknown) (unknown) 4.7 g/dl (unkn own) (unknown) (no date) (unknown) (unknown) 49 u/l (unkn own) (unknown) (no date) (unknown) (unknown) 57 u/l (unkn own) (unknown) (no date) (unknown) (unknown) 8.2 g/dl (unkn own) (unknown) (no date) (unknown) (unknown) 87 mg/dl (unkn own) (unknown) (no date) (unknown) (unknown) 87 mg/dl (unkn own) (unknown) (no date) (unknown) (unknown) 9.3 mg/dl (unkn own) (unknown) (no date) (unknown) (unknown) Test not % (unkn own) performed (unknown) (no date) (unknown) (unknown) Test not % (unkn own) performed (unknown) (no date) (unknown) (unknown) Test not ng/ml (unkn own) performed (unknown) (no date) (unknown) (unknown) Test not ng/ml (unkn own) performed Result panel 343 (unknown) (no date) (unknown) (unknown) 1.2 (units unknown) (unknown) (unknown) (no date) (unknown) (unknown) 13.3 seconds (unkn own) (unknown) (no date) (unknown) (unknown) 33 seconds (unkn own) (unknown) (no date) (unknown) (unknown) 33 seconds (unkn own) Result panel 344 (unknown) (no date) (unknown) (unknown) > 60 ml/min (unkn own) (unknown) (no date) (unknown) (unknown) > 60 ml/min (unkn own) (unknown) (no date) (unknown) (unknown) < 0.012 ng/ml (unkn own) (unknown) (no date) (unknown) (unknown) < 0.012 ng/ml (unkn own) (unknown) (no date) (unknown) (unknown) 0.5 mg/dl (unkn own) (unknown) (no date) (unknown) (unknown) 0.61 mg/dl (unkn own) (unknown) (no date) (unknown) (unknown) 1.3 (units (unkn own) unknown) (unknown) (no date) (unknown) (unknown) 10 mg/dl (unkn own) (unknown) (no date) (unknown) (unknown) 104 mmol/l (unkn own) (unknown) (no date) (unknown) (unknown) 140 mmol/l (unkn own) (unknown) (no date) (unknown) (unknown) 16.4 (units (unkn own) unknown) (unknown) (no date) (unknown) (unknown) 18 iu/l (unkn own) (unknown) (no date) (unknown) (unknown) 2.2 mg/dl (unkn own) (unknown) (no date) (unknown) (unknown) 214 u/l (unkn own) (unknown) (no date) (unknown) (unknown) 24 iu/l (unkn own) (unknown) (no date) (unknown) (unknown) 27 mmol/l (unkn own) (unknown) (no date) (unknown) (unknown) 3.5 g/dl (unkn own) (unknown) (no date) (unknown) (unknown) 3.8 mmol/l (unkn own) (unknown) (no date) (unknown) (unknown) 4.7 g/dl (unkn own) (unknown) (no date) (unknown) (unknown) 49 u/l (unkn own) (unknown) (no date) (unknown) (unknown) 57 u/l (unkn own) (unknown) (no date) (unknown) (unknown) 8.2 g/dl (unkn own) (unknown) (no date) (unknown) (unknown) 87 mg/dl (unkn own) (unknown) (no date) (unknown) (unknown) 87 mg/dl (unkn own) (unknown) (no date) (unknown) (unknown) 9.3 mg/dl (unkn own) (unknown) (no date) (unknown) (unknown) Test not % (unkn own) performed (unknown) (no date) (unknown) (unknown) Test not % (unkn own) performed (unknown) (no date) (unknown) (unknown) Test not ng/ml (unkn own) performed (unknown) (no date) (unknown) (unknown) Test not ng/ml (unkn own) performed Social History date description facility 2022-08-25 00:00 Never smoked tobacco (finding) [facility] 2022-08-27 00:00 Never smoked tobacco (finding) [facility] 2022-09-23 00:00 Never smoker [facility] [place] [facility] Vital Signs date measurement value units 2022-08-25 00:00 BMI 25.0 kg/m2 2022-08-25 00:00 BP_diastolic 66 mmHg 2022-08-25 00:00 BP_systolic 106 mmHg 2022-08-25 00:00 heart_rate 73 /min 2022-08-25 00:00 height_metric 147.32 cm 2022-08-25 00:00 height_standard 58 in 2022-08-25 00:00 o2_saturation 100 % 2022-08-25 00:00 respiration_rate 20 /min 2022-08-25 00:00 temperature_metric 36.39 C 2022-08-25 00:00 temperature_standard 97.5 F 2022-08-25 00:00 weight_metric 54.43 kg 2022-08-25 00:00 weight_standard 120 lb 2022-08-27 00:00 BMI 25.0 kg/m2 2022-08-27 00:00 BP_diastolic 89 mmHg 2022-08-27 00:00 BP_systolic 180 mmHg 2022-08-27 00:00 heart_rate 66 /min 2022-08-27 00:00 height_metric 147.32 cm 2022-08-27 00:00 height_standard 58 in 2022-08-27 00:00 o2_saturation 95 % 2022-08-27 00:00 respiration_rate 16 /min 2022-08-27 00:00 temperature_metric 36.89 C 2022-08-27 00:00 temperature_standard 98.4 F 2022-08-27 00:00 weight_metric 54.43 kg 2022-08-27 00:00 weight_standard 120 lb 2022-09-23 00:00 BMI 24.73 kg/m2 2022-09-23 00:00 BP_diastolic 68 mmHg 2022-09-23 00:00 BP_systolic 104 mmHg 2022-09-23 00:00 heart_rate 85 /min 2022-09-23 00:00 height_metric 149.86 cm 2022-09-23 00:00 height_standard 59 in 2022-09-23 00:00 respiration_rate 16 /min 2022-09-23 00:00 temperature_metric 36.28 C 2022-09-23 00:00 temperature_standard 97.3 F 2022-09-23 00:00 weight_metric 55.34 kg 2022-09-23 00:00 weight_standard 122 lb
--- NOTE | 2022-10-16 14:46 | ED Physician Documentation ---
PD HPI CHEST PAIN - Stated complaint Stated Complaint: CP - Chief complaint Chief Complaint: Cardiac - History obtained from History obtained from: Patient, EMS - History of Present Illness Timing - onset: Today Timing - onset during: Light activity (she states was walking down some steps at work and had feeling of general weakness, but more to left. She had feeling of some chest pressure/pain. Then developed left sided headache with nausea and blurred vision lateral left. Some feeling of numbness left arm.) Timing - duration: Hours (the past 1-2 hours.) Timing - details: Gradual onset, Still present Quality: Pressure, Tightness Location: Left chest, Left shoulder/arm Radiation: Neck (left side). No: Jaw, Back Improved by: No: Rest Worsened by: No: Exertion, Inspiration, Movement Associated symptoms: Shortness of air, Nausea, Feeling faint / dizzy, Other (left sided headache shortly after) Similar symptoms before: Diagnosis (the headache with blurred vision and nausea, along with arm nubmness is c/w migraines she used to get. Had not had one for few years though. No recent illness otherwise.) Recently seen: Not recently seen Review of Systems Constitutional: denies: Fever, Chills Eyes: reports: Decreased vision (left eye blurred lateral field.), Photophobia (mild) Nose: denies: Rhinorrhea / runny nose, Congestion Throat: denies: Sore throat Cardiac: denies: Palpitations, Pedal edema, Calf pain Respiratory: denies: Cough GI: reports: Nausea. denies: Abdominal Pain, Vomiting, Diarrhea Musculoskeletal: denies: Extremity swelling Neurologic: reports: Numbness (left arm), Headache. denies: Focal weakness, Altered mental status PD PAST MEDICAL HISTORY - Past Medical History Past Medical History: Yes Cardiovascular: None, Other Respiratory: Asthma, Other Neuro: Migraines (subsequent to Chiari malformation, with surgery about 5 years ago and much less to no migraines after. 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 : Other HEENT: Chronic sinusitis Psych: Depression, Anxiety Musculoskeletal: None Derm: None - Past Surgical History Past Surgical History: Yes General: Cholecystectomy, Appendectomy, Gastric surgery Ortho: Other /REAL ESTATE INSPECTOR: section, Tubal ligation, Hysterectomy, Other Neuro: Craniotomy HEENT: Tonsil/Adenoidectomy - Present Medications Home Medications: Ambulatory Orders Medication Instructions Recorded Confirmed Omeprazole 20 mg PO BID 09/30/18 11/07/20 Sucralfate 1 gm PO AC 30 Days #90 tablet 09/19/19 11/07/20 Acetaminophen [Tylenol Extra 1,000 mg PO Q6HR PRN MDD 4000mg 02/16/20 11/07/20 Strength] Albuterol Sulfate [Proair Hfa 1 - 2 puffs INH Q4H PRN 02/16/20 11/07/20 Inhaler] diphenhydrAMINE [Benadryl] 25 - 50 mg PO PRN PRN 02/16/20 11/07/20 Ondansetron Odt [Zofran] 4 mg TL Q6H PRN #10 tablet 06/19/20 11/07/20 EPINEPHrine [Epinephrine] 0.3 mg IJ ONCE PRN #2 syr 11/05/20 11/07/20 methylPREDNISolone [Medrol] 8 mg PO DAILY PRN #7 tablet 11/05/20 11/07/20 EPINEPHrine [Epinephrine] 0.3 mg IJ ONCE PRN #1 syr 11/07/20 - Allergies Allergies/Adverse Reactions: Allergies Allergy/AdvReac Type Severity Reaction Status Date / Time aspirin Allergy Severe Anaphylaxis Verified 10/16/22 13:39 hydromorphone HCl * Allergy Severe Hives Verified 10/16/22 13:39 [From Dilaudid] morphine Allergy Severe Hives Verified 10/16/22 13:39 nitrofurantoin Allergy Severe Respiratory Verified 10/16/22 13:39 macrocrystalline * [From Macrobid] acetaminophen [From Ofirmev] Allergy Hives Verified 10/16/22 13:39 amoxicillin Allergy Anaphylaxis Verified 10/16/22 13:39 doxycycline Allergy Hives Verified 10/16/22 13:39 famotidine [From Pepcid] Allergy Anaphylaxis Verified 10/16/22 13:39 fentanyl Allergy Unknown Verified 10/16/22 13:39 fluconazole Allergy Hives Verified 10/16/22 13:39 lidocaine Allergy Unknown Verified 10/16/22 13:39 meperidine HCl * Allergy Anaphylaxis Verified 10/16/22 13:39 [From Demerol] Penicillins Allergy Anaphylaxis Verified 10/16/22 13:39 prednisone Allergy Anaphylaxis Verified 10/16/22 13:39 tamsulosin HCl * Allergy Unknown Verified 10/16/22 13:39 [From Flomax] trimethoprim [From Bactrim] Allergy Hives Verified 10/16/22 13:39 wheat Allergy Hives Verified 10/16/22 13:39 hydrocodone [Hydrocodone] AdvReac Severe Emesis Verified 10/16/22 13:39 butorphanol AdvReac Intermediate Anxiety Verified 10/16/22 13:39 adhesive AdvReac Rash Verified 10/16/22 13:39 Minong And Derivatives AdvReac Nausea Verified 10/16/22 13:39 egg AdvReac Nausea Verified 10/16/22 13:39 fexofenadine AdvReac Edema Verified 11/05/20 13:21 milk AdvReac Nausea Verified 11/05/20 13:21 NSAIDS (Non-Steroidal AdvReac Cramps Verified 11/05/20 13:21 Anti-Inflamma - Social History Does the pt smoke?: No Smoking Status: Never smoker Does the pt drink ETOH?: No Does the pt have substance abuse?: No - Immunizations Immunizations are current?: Yes - POLST Patient has POLST: No POLST Status: Full Code PD ED PE NORMAL - Vitals Vital signs reviewed: Yes - General General: Alert and oriented X 3, Well developed/nourished - HEENT HEENT: PERRL (mild light sensitive. ), EOMI, Moist mucous membranes, Pharynx benign - Neck Neck: Supple, no meningeal sign, No adenopathy - Cardiac Cardiac: RRR, No murmur - Respiratory Respiratory: Clear bilaterally - Abdomen Abdomen: Soft, Non tender - Derm Derm: Normal color, Warm and dry - Extremities Extremities: Normal ROM s pain, No edema, No calf tenderness / cord - Neuro Neuro: Alert and oriented X 3, No motor deficit, No sensory deficit, Normal speech Results - Vitals Vitals: Vital Signs - 24 hr 10/16/22 10/16/22 10/16/22 13:31 13:40 14:04 Temperature 36.8 C Heart Rate 81 72 Respiratory 18 16 16 Rate Blood Pressure 121/90 H O2 Saturation 96 100 10/16/22 10/16/22 14:10 15:09 Temperature 36.6 C Heart Rate 86 Respiratory 16 16 Rate Blood Pressure 101/75 101/75 O2 Saturation 98 Oxygen O2 Source Room air - EKG (time done) 13:30 EKG releavant findings:: EKG personally interpreted by author of this note. Relevant findings are: Rate: Rate (enter#) (73) Rhythm: NSR [place]: Normal Intervals: Normal [place] QRS: Normal Ischemia: Normal ST segments. No: ST elevation c/w ischemia, ST depression - Labs Labs: Laboratory Tests 10/16/22 10/16/22 10/16/22 14:08 14:08 14:08 WBC 5.7 RBC 4.38 Hgb 13.0 Hct 39.6 MCV 90.4 MCH 29.7 MCHC 32.8 RDW 12.7 Plt Count 269 MPV 11.7 H Neut # (Auto) 3.5 Lymph # (Auto) 1.6 Newton # (Auto) 0.4 Eos # (Auto) 0.2 Baso # (Auto) 0.1 Absolute Nucleated RBC 0.00 Nucleated RBC % 0.0 Sodium 141 Potassium 3.2 L Chloride 106 Carbon Dioxide 26 Anion Gap 9.0 BUN 11 Creatinine 0.6 Estimated GFR (MDRD) 113 Glucose 108 H Calcium 8.9 Total Bilirubin 0.6 AST 16 ALT 15 Alkaline Phosphatase 35 L Troponin I High Sens < 2.3 L B-Natriuretic Peptide Total Protein 7.0 Albumin 4.1 Globulin 2.9 Albumin/Globulin Ratio 1.4 Lipase 42 10/16/22 14:08 WBC RBC Hgb Hct MCV MCH MCHC RDW Plt Count MPV Neut # (Auto) Lymph # (Auto) Newton # (Auto) Eos # (Auto) Baso # (Auto) Absolute Nucleated RBC Nucleated RBC % Sodium Potassium Chloride Carbon Dioxide Anion Gap BUN Creatinine Estimated GFR (MDRD) Glucose Calcium Total Bilirubin AST ALT Alkaline Phosphatase Troponin I High Sens B-Natriuretic Peptide 21 Total Protein Albumin Globulin Albumin/Globulin Ratio Lipase - Rads (name of study) chest xray Relevant Findings:: Prelim report reviewed, EMP independent interpretation of test (no acute lung process. Normal heart size. ), See rad report PD Medical Decision Making - ED course Complexity details: reviewed results (no signs of CAD/KS/CHF nor lung process. ), re-evaluated patient (she was given IV fluids with Compazine and Tylenol. She is having considerable reduction in headache and nausea, with resolved numbness of left arm and vision. Seems most likely Dx of recurrent migraine. ), considered differential (has chest discomfort and dyspne. Does not have any Wells risk factors. can get ECG/trop/CXR. she is having AGUILAR, visual change, nausea and left arm numbness c/w her prior migraines, but has been several years without one. ), d/w patient Departure - Departure Disposition: 01 Home, Self Care Clinical Impression: Chest pain, Dyspnea, Migraine headache Condition: Stable Record reviewed to determine appropriate education?: Yes Instructions: ED Chest Pain Atypical Unkn Cause, ED Headache Migraine Comments: Your headache and the associated symptoms sound like a migraine. You do seem to be improving with Tylenol and Compazine which are a combination targeting migraine type headaches and its associated nausea. You will have to see if you develop these on a more regular basis or if it was just a rare headache. Regarding the chest discomfort, there is no signs of abnormal heart rhythm, heart attack, heart failure, pneumonia nor any collapsed lung or fluid around the lung. This pretty well eliminates more serious causes for the chest pain and shortness of breath. See how you feel over the next few days. The general symptoms you are having may suggest early onset of a viral type syndrome. If you develop more congestion or cough or feverish then that may make sense. Those could also be reasons for triggering headaches etc. (Flulike illness). Return to ER if needed. Discharge Date/Time: 10/16/22 15:11
== END 2022-10-16 15:11 | disposition home or self-care (01) ==
LOC: EDUNIT# → ED 13:27
DX: G43.909 Migraine, unspecified, not intractable, without status migrainosus (principal); R07.9 Chest pain, unspecified; R06.00 Dyspnea, unspecified
CPT/HCPCS: 36415; 71045; 80053; 83690; 83880; 84484; 85025; 93005; 96365; 96375; 99284; J0131

== ENCOUNTER 2023-06-06 15:45 | Outpatient (CLI) | payer SELFPAY ==
[2023-06-07 22:00] LABS: BACTERIAL VAGINOSIS DNA POSITIVE (NEGATIVE); CANDIDA GLABRATA DNA NEGATIVE (NEGATIVE); CANDIDA GROUP DNA NEGATIVE (NEGATIVE); CANDIDA KRUSEI DNA NEGATIVE (NEGATIVE); TRICHOMONAS VAGINALIS DNA NEGATIVE (NEGATIVE)
[2023-06-08 00:12] LABS: CHLAMYDIA TRACHOMATIS DNA NEGATIVE (NEGATIVE); NEISSERIA GONORRHOEAE DNA NEGATIVE (NEGATIVE)
== END 2023-06-06 16:00 | disposition home or self-care (01) ==
LOC: LAB.N 15:45
PROVIDERS: ATTEND Physician Assistant Medical
DX: N89.8 Other specified noninflammatory disorders of vagina (principal); R31.9 Hematuria, unspecified
CPT/HCPCS: 81514; 87086; 87491; 87591; 87661

== ENCOUNTER 2023-09-29 16:46 | Outpatient (CLI) | payer MEDICAID ==
--- NOTE | 2023-09-30 11:03 | Ultrasound Report ---
PROCEDURE: Pelvic Complete INDICATIONS: PELVIC PAIN TECHNIQUE: Real-time transabdominal scanning was performed of the pelvic organs, with image documentation. COMPARISON: 11/10/2020 FINDINGS: Uterus: Surgically absent Ovaries: The right ovary is surgically absent. The left ovary measures 3.9 x 2.2 x 3.1 cm, with a ca lculated ovarian volume of 13.8 cc. The left ovary has a 2.4 x 1.6 x 2.3 cm cyst. There are less than 12 follicles noted. There is normal intraovarian flow on the left ovary. Other: No free pelvic fluid. IMPRESSION: 1. Remote hysterectomy and right oophorectomy. 2. Unremarkable left ovary with incidental small simple cyst. Reviewed by: Martell Stanton MD on 09/30/2023 11:02 AM PDT Approved by: Martell Stanton MD on 09/30/2023 11:02 AM PDT Station ID: [id number]
== END 2023-09-29 16:47 | disposition home or self-care (01) ==
LOC: DI 16:46
PROVIDERS: ATTEND Nurse Practitioner
DX: R10.2 Pelvic and perineal pain (principal); N83.292 Other ovarian cyst, left side; Z90.710 Acquired absence of both cervix and uterus; Z90.721 Acquired absence of ovaries, unilateral

== ENCOUNTER 2023-10-22 13:57 | Outpatient (CLI) | payer MEDICAID ==
[2023-10-22 14:38] LABS: CREATININE 0.6 mg/dL (0.6-1.3)
[2023-10-22] MEDS ORDERED: GADOTERATE MEGLUMINE 7.5 MMOL/15 ML VIAL ONE (14:43)
--- NOTE | 2023-10-22 17:19 | MRI Report ---
PROCEDURE: Pelvis W/WO INDICATIONS: PELVIC PAIN CONTRAST: 11.6ml Clariscan TECHNIQUE: Coronal ultra fast SE, sagittal breath-hold T2 FSE; axial T1 FSE with and without fat saturation thro ugh the pelvis. Optional long- and short-axis uterine nonbreath-hold T2 FSE through the uterus. Sag ittal or axial dynamic ultra fast GE during administration of contrast. Post-contrast axial or coron al ultra fast GE / 2-D spoiled GE with fat saturation from the iliac crests to the symphysis. Option al diffusion weighted imaging and ADC may be performed. COMPARISON: Pelvic ultrasound 09/29/2023. CT abdomen pelvis without contrast 07/23/2023 FINDINGS: Image quality: Excellent. Uterus: Absent. Adnexa: Right ovary is absent. No significant left ovarian cyst. Small left T2 hyperintense ovarian c yst measuring 1.4 cm. No suspicious enhancement. Urinary system: Bladder wall is normal in thickness. Distal ureters are non distended. Urethra christopher ears normal in morphology. Nodes and vessels: No pelvic or inguinal adenopathy by size criteria. Iliac vessels are normal in s ize. Bowel and peritoneum: No pathologic free pelvic fluid. Inferior colon and small bowel loops are nor mal in caliber. Soft tissues: No inguinal hernias. No findings of pelvic floor incompetence in the absence of provo cation. Bones: Marrow demonstrates normal overall signal. Small cyst at the left sacrum. IMPRESSION: 1. No acute abnormality. No free fluid. 2. Simple left ovarian cyst measuring 1.4 cm. 3. Post hysterectomy. Reviewed by: Juan Luis Vickers MD on 10/22/2023 5:18 PM PDT Approved by: Juan Luis Vickers MD on 10/22/2023 5:18 PM PDT Station ID: [id number]
[2023-10-22] MEDS: GADOTERATE MEGLUMINE 7.5 MMOL/15 ML VIAL IVP ONE (17:52)
== END 2023-10-22 13:58 | disposition home or self-care (01) ==
LOC: DI 13:57
PROVIDERS: ATTEND Nurse Practitioner
DX: N83.292 Other ovarian cyst, left side (principal); Z90.710 Acquired absence of both cervix and uterus
CPT/HCPCS: 36415; 82565

== ENCOUNTER 2023-10-22 18:59 | Outpatient (CLI) | payer MEDICAID ==
--- NOTE | 2023-10-23 10:03 | Ultrasound Report ---
PROCEDURE: Pelvic w/Transvaginal INDICATIONS: PELVIC PAIN TECHNIQUE: Real-time scanning was performed of the pelvic organs, with image documentation. Additional endovagi nal scanning was necessary due to incomplete visualization of the adnexal and endometrial structures by transabdominal scanning. COMPARISON: MRI pelvis on October 22, 2023. Pelvic ultrasound on September 29, 2023. FINDINGS: Uterus: Uterus is surgically absent. Ovaries: The right ovary is surgically absent. The left ovary measures 3.5 x 2 x 2.9 cm with a volume of 10.3 mL. Cyst versus dominant follicle measuring 1.7 x 1.5 x 1.3 cm which is better characterized on same day MRI pelvis. On prior pelvic ultrasound dated September 29, 2023, there was a left ovarian cys ts which measure 2.4 x 1.6 x 2.3 cm. Less than 12 follicles can be seen in each ovary. No adnexal ma sses are seen. No cystic lesions measuring greater than 3 cm. Other: No pathologic free abdominal or pelvic fluid. IMPRESSION: 1.Hysterectomy and right oophorectomy. 2.Left ovary demonstrates a dominant follicle versus cyst which is better characterized on same day M RI pelvis. On prior pelvic ultrasound dated September 29, 2023, there was a left ovarian cysts which measu re 2.4 x 1.6 x 2.3 cm. Reviewed by: Ana Maria Calderón MD on 10/23/2023 10:02 AM PDT Approved by: Ana Maria Calderón MD on 10/23/2023 10:02 AM PDT Station ID: [id number]
== END 2023-10-22 19:00 | disposition home or self-care (01) ==
LOC: DI 18:59
PROVIDERS: ATTEND Nurse Practitioner
DX: R10.2 Pelvic and perineal pain (principal)

== ENCOUNTER 2023-10-30 07:47 | Outpatient (CLI) | payer MEDICAID ==
--- NOTE | 2023-10-31 09:55 | Ultrasound Report ---
LIMITED ULTRASOUND OF LEFT BREAST: 10/30/2023 CLINICAL: Diffuse pain in left breast. Comparison is made to exams dated: 10/30/2023 mammogram - [facility], 12/20/2019 mamm ogram, and 12/20/2019 ultrasound - [facility]. Color flow and real-time ultrasound of the left breast 3-4 o'clock region were performed on the area s of interest. Peres scale images of the real-time examination were reviewed. There is a 0.7 cm simple cyst in the left breast at 3 o'clock middle depth. This simple cyst is anec hoic with posterior acoustic enhancement. This correlates with mammography findings. IMPRESSION: BENIGN There is no sonographic evidence of malignancy. The 0.7 cm simple cyst in the left breast is benign. Return to annual mammogram screening schedule at 40 is recommended. This exam was interpreted at Station ID: [id number]. Electronically Signed By: Zoila Lopez M.D. lk/:10/30/2023 09:21:16 Ultrasound BI-RADS: 2 Benign BI-RADS CATEGORY: (2) - 2 RECOMMENDATION: (ANNUAL) - Recommend routine annual screening mammography. [id number] return to screening LATERALITY: (B)
--- NOTE | 2023-10-31 09:55 | Mammography Report ---
BILATERAL DIGITAL DIAGNOSTIC MAMMOGRAM 3D/2D WITH SPOT COMPRESSION: 10/30/2023 CLINICAL: Bilateral diffuse breast pain. Family history of breast cancer. Comparison is made to exam dated: 12/20/2019 mammogram - [facility]. Both breasts are heterogeneously dense, which may obscure small masses (category c / 51-75% glandular tissue). There is a focal asymmetry in the left breast at 4 o'clock middle depth. No other significant masses, calcifications, or other findings are seen in either breast. IMPRESSION: INCOMPLETE: NEEDS ADDITIONAL IMAGING EVALUATION The focal asymmetry in the left breast is indeterminate. A targeted ultrasound of the left breast is recommended and will be performed immediately following this exam. There is no mammographic abnormality seen in either breast to correspond with the diffuse pain, howev er, clinical followup is recommended. Based on the Tyrer Cuzick model (a risk assessment model) the patient's lifetime risk is 18.0% and he r 10 year risk is 1.8%. According to the ACR, ACS, and NCCN guidelines, an annual breast MRI exam shaji ng with mammogram is recommended if the patient's lifetime risk is 20% or greater. This exam was interpreted at Station ID: [id number]. NOTE: For mammograms, a report in lay terms will be sent to the patient. Approximately 15% of breast malignancies will not be visualized mammographically. In the management of a palpable breast mass, a negative mammogram must not discourage biopsy of a clinically suspicious lesion. Electronically Signed By: Zoila Lopez M.D. lk/:10/30/2023 09:08:27 ACR BI-RADS Category 0: Incomplete 3340F PARENCHYMAL PATTERN: (D) - The breast(s) demonstrate(s) heterogeneously dense fibroglandular parquan blanchard. BI-RADS CATEGORY: (0) - 0 Unspecified - other [id number] Immediate follow-up LATERALITY: (B)
== END 2023-10-30 07:48 | disposition home or self-care (01) ==
LOC: DI 07:47
PROVIDERS: ATTEND Nurse Practitioner
DX: N60.02 Solitary cyst of left breast (principal); R92.333 Mammographic heterogeneous density, bilateral breasts

== ENCOUNTER 2023-12-12 15:35 | Outpatient (CLI) | payer MEDICAID ==
--- NOTE | 2023-12-12 17:56 | XRAY Report ---
PROCEDURE: Hand 1-2V LT INDICATIONS: CRUSHING INJURY OF LEFT HAND TECHNIQUE: 2 views of the hand(s) acquired. COMPARISON: None. FINDINGS: Bones: No fractures or dislocations. No suspicious bony lesions. Soft tissues: No suspicious soft tissue calcifications or masses. IMPRESSION: No acute bony abnormality. Reviewed by: Norberto Crawley MD on 12/12/2023 5:55 PM PDT Approved by: Norberto Crawley MD on 12/12/2023 5:55 PM PDT Station ID: [id number]
== END 2023-12-12 23:59 | disposition home or self-care (01) ==
LOC: DI.N 15:35
PROVIDERS: ATTEND Nurse Practitioner
DX: S67.22XA Crushing injury of left hand, initial encounter (principal)

== ENCOUNTER 2024-02-16 12:47 | Outpatient (CLI) | payer MEDICAID | END 2024-02-16 12:48 | disposition critical access hospital (66) | LOC: EMS 12:47 | DX: R06.2 Wheezing (principal); L29.9 Pruritus, unspecified; R07.89 Other chest pain; R09.02 Hypoxemia; R00.0 Tachycardia, unspecified; R06.82 Tachypnea, not elsewhere classified | CPT/HCPCS: A0425; A0427; A0999 ==

== ENCOUNTER 2024-02-16 13:30 | Emergency (ER) | payer MEDICAID ==
[~2024-02-16 13:30] MED LIST: EPINEPHrine 1 MG/ML AMP ONE
[2024-02-16] MEDS ORDERED: ONDANSETRON 4 MG/2 ML VIAL ONE (13:49)
[2024-02-16] MEDS ORDERED: DEXAMETHASONE 10 MG/ML VIAL ONE (13:49)
[2024-02-16] MEDS ORDERED: ACETAMINOPHEN 500 MG TABLET PO ONE (14:51)
--- NOTE | 2024-02-16 15:29 | ED Physician Documentation ---
History of Present Illness - Stated complaint Stated Complaint: ALLERGIC REACTION - History obtained from History obtained from: Patient, EMS - Additonal information Additional information: Has a history of severe anaphylaxis and ate a can of spaghetti Os about 45 minutes ago developed throat swelling wheezing and shortness of breath. Sats in the mid 80s for EMS and she has had 2 doses of epi with transient improvement but now worse again. She has a history of intubation for anaphylaxis in the past. PD PAST MEDICAL HISTORY - Past Medical History Cardiovascular: None, Other Respiratory: Asthma, Other Neuro: Migraines, Other Endocrine/Autoimmune: None GI: None, Ulcers STOCK LIFTER: 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 : Other HEENT: Chronic sinusitis Psych: Depression, Anxiety Musculoskeletal: None Derm: None - Past Surgical History Past Surgical History: Yes General: Cholecystectomy, Appendectomy, Gastric surgery Ortho: Other /STOCK LIFTER: section, Tubal ligation, Hysterectomy, Other Neuro: Craniotomy HEENT: Tonsil/Adenoidectomy - Present Medications Home Medications: Ambulatory Orders Medication Instructions Recorded Confirmed Omeprazole 20 mg PO BID 09/30/18 11/07/20 Sucralfate 1 gm PO AC 30 Days #90 tablet 09/19/19 11/07/20 Acetaminophen [Tylenol Extra 1,000 mg PO Q6HR PRN MDD 4000mg 02/16/20 11/07/20 Strength] Albuterol Sulfate [Proair Hfa 1 - 2 puffs INH Q4H PRN 02/16/20 11/07/20 Inhaler] diphenhydrAMINE [Benadryl] 25 - 50 mg PO PRN PRN 02/16/20 11/07/20 Ondansetron Odt [Zofran] 4 mg TL Q6H PRN #10 tablet 06/19/20 11/07/20 EPINEPHrine [Epinephrine] 0.3 mg IJ ONCE PRN #2 syr 11/05/20 11/07/20 methylPREDNISolone [Medrol] 8 mg PO DAILY PRN #7 tablet 11/05/20 11/07/20 EPINEPHrine [Epinephrine] 0.3 mg IJ ONCE PRN #1 syr 11/07/20 HYDROcod/ACETAM 5/325 [[place] 5/325] 1 - 2 tablet PO Q6H PRN #14 tablet 07/23/23 Ondansetron Odt [Zofran] 4 mg TL Q6H PRN #10 tablet 07/23/23 EPINEPHrine [Epinephrine] 0.3 mg IJ ONCE PRN #2 each 02/16/24 - Allergies Allergies/Adverse Reactions: Allergies Allergy/AdvReac Type Severity Reaction Status Date / Time aspirin Allergy Severe Anaphylaxis Verified 07/23/23 08:06 hydromorphone HCl * Allergy Severe Hives Verified 07/23/23 08:11 [From Dilaudid] morphine Allergy Severe Hives Verified 07/23/23 08:11 nitrofurantoin Allergy Severe Respiratory Verified 07/23/23 08:06 macrocrystalline * [From Macrobid] acetaminophen [From Ofirmev] Allergy Hives Verified 07/23/23 08:06 amoxicillin Allergy Anaphylaxis Verified 07/23/23 08:06 doxycycline Allergy Hives Verified 07/23/23 08:06 famotidine [From Pepcid] Allergy Anaphylaxis Verified 07/23/23 08:06 fentanyl Allergy Unknown Verified 07/23/23 08:06 fluconazole Allergy Hives Verified 07/23/23 08:06 lidocaine Allergy Unknown Verified 07/23/23 08:06 meperidine HCl * Allergy Anaphylaxis Verified 07/23/23 08:06 [From Demerol] Penicillins Allergy Anaphylaxis Verified 07/23/23 08:06 prednisone Allergy Anaphylaxis Verified 07/23/23 08:06 tamsulosin HCl * Allergy Unknown Verified 07/23/23 08:06 [From Flomax] trimethoprim [From Bactrim] Allergy Hives Verified 07/23/23 08:06 wheat Allergy Hives Verified 07/23/23 08:06 hydrocodone [Hydrocodone] AdvReac Severe Emesis Verified 07/23/23 08:06 butorphanol AdvReac Intermediate Anxiety Verified 07/23/23 08:06 adhesive AdvReac Rash Verified 07/23/23 08:06 [place] And Derivatives AdvReac Nausea Verified 07/23/23 08:06 egg AdvReac Nausea Verified 07/23/23 08:06 fexofenadine AdvReac Edema Verified 07/23/23 08:06 milk AdvReac Nausea Verified 07/23/23 08:06 NSAIDS (Non-Steroidal AdvReac Cramps Verified 07/23/23 08:06 Anti-Inflamma speghettios Allergy Anaphylaxis Uncoded 02/16/24 17:11 - Social History Does the pt smoke?: No Smoking Status: Never smoker Does the pt drink ETOH?: No Does the pt have substance abuse?: No - Immunizations Immunizations are current?: Yes - POLST Patient has POLST: No POLST Status: Full Code PD ED PE NORMAL - Vitals Vital signs reviewed: Yes - General General: Alert and oriented X 3, Other (She is brought in by EMS and appears ill.) - HEENT HEENT: PERRL, EOMI, Pharynx benign - Respiratory Respiratory: Other (She is in respiratory distress with profuse wheezing. She is tachycardic.) - Abdomen Abdomen: Non tender - Derm Derm: Other (Diffuse redness) - Neuro Neuro: Alert and oriented X 3, Normal speech Results - Vitals Vitals: Vital Signs - 24 hr 02/16/24 02/16/24 02/16/24 13:30 13:40 15:47 Temperature 36.7 C Heart Rate 110 H 122 H 105 H Respiratory 28 H 22 18 Rate Blood Pressure 108/77 106/76 O2 Saturation 100 99 02/16/24 02/16/24 16:02 17:11 Temperature Heart Rate 102 H 104 H Respiratory 21 16 Rate Blood Pressure 112/75 104/74 O2 Saturation 97 100 Oxygen O2 Source Room air - EKG (time done) 1406 EKG releavant findings:: EKG personally interpreted by author of this note. Relevant findings are: Rate: Rate (enter#) (103) Rhythm: Sinus tachycardia, LAE [place]: Normal Intervals: Normal VA QRS: Low voltage Ischemia: Normal ST segments - Labs Labs: Laboratory Tests 02/16/24 02/16/24 16:40 16:40 WBC 12.0 H RBC 4.67 Hgb 14.1 Hct 42.6 MCV 91.2 MCH 30.2 MCHC 33.1 RDW 12.7 Plt Count 297 MPV 11.4 H Neut # (Auto) 11.2 H Lymph # (Auto) 0.6 L [place] # (Auto) 0.1 Eos # (Auto) 0.0 Baso # (Auto) 0.0 Absolute Nucleated RBC 0.00 Nucleated RBC % 0.0 Sodium 138 Potassium 4.1 Chloride 107 Carbon Dioxide 23 Anion Gap 8.0 BUN 11 Creatinine 0.6 Estimated GFR (MDRD) 112 Glucose 126 H Calcium 9.5 Total Bilirubin 0.4 AST 14 ALT 13 Alkaline Phosphatase 35 L Total Protein 7.5 Albumin 4.4 Globulin 3.1 Albumin/Globulin Ratio 1.4 Lipase 45 PD Medical Decision Making - ED course ED course: She presents with severe anaphylaxis and was attended to immediately upon arrival. She did appear ill from anaphylaxis having already received 2 doses of IM epinephrine prior to arrival. A third dose was given on arrival and I also ordered 5 mg of nebulized epinephrine (we do not have racemic epi as it is on backorder). She was difficult for IV access and I personally placed a 22-gauge long IV using real-time ultrasound guidance in the right cephalic vein which flushed and shorty well. She was also administered some dexamethasone. She says she is allergic to steroids but review the chart shows that she has had that in the past. Subsequent to these interventions she was looking much better, the wheezing went away as did her diffuse redness. We will observe her for a time given her anaphylaxis. She was observed for several hours and her symptoms completely abated and she requested discharge. - Critical Care Time(min): 45 Time Includes: Direct patient care, Review records, Reassess patient, Document care, Coordinate care Data interpretation: Labs, Pulse ox Procedures included in critical care time: Peripheral IV Procedures excluded from critical care time: EKG Departure - Departure Disposition: 01 Home, Self Care Clinical Impression: Anaphylaxis Qualifiers: Encounter type: initial encounter Qualified Code(s): T78.2XXA - Anaphylactic shock, unspecified, initial encounter Condition: Good Record reviewed to determine appropriate education?: Yes Instructions: ED Anaphylaxis General Prescriptions: EPINEPHrine [Epinephrine] 0.3 mg IJ ONCE PRN #2 each PRN Reason: Allergy Symptoms Comments: Avoid SpaghettiOs in the future. I sent your prescription for the EpiPen refill to [facility] in [place]. Call your doctor to arrange a follow-up appointment, make the next available appointment. In the interim, return anytime if worse or if new symptoms develop. Forms: PCP List Discharge Date/Time: 02/16/24 17:11
[2024-02-16 16:48] LABS: BASOPHILS % (AUTO) 0.2 %; HCT - HEMATOCRIT 42.6 % (37.0-47.0); HGB - HEMOGLOBIN 14.1 g/dL (12.0-16.0); LYMPHOCYTES # (AUTO) 0.6 10^3/uL (1.5-3.5); LYMPHOCYTES % (AUTO) 5.3 %; MEAN CORPUSCULAR HEMOGLOBIN 30.2 pg (27.0-31.0); MEAN CORPUSCULAR HGB CONC 33.1 g/dL (32.0-36.0); MEAN CORPUSCULAR VOLUME 91.2 fL (81.0-99.0); MEAN PLATELET VOLUME 11.4 fL (7.9-10.8); MONOCYTES # (AUTO) 0.1 10^3/uL (0.0-1.0); MONOCYTES % (AUTO) 0.9 %; NEUTROPHILS # (AUTO) 11.2 10^3/uL (1.5-6.6); NEUTROPHILS % (AUTO) 93.3 %; PLT - PLATELET COUNT 297 10^3/uL (130-450); RED BLOOD COUNT 4.67 10^6/uL (4.20-5.40); RED CELL DISTRIBUTION WIDTH 12.7 % (12.0-15.0)
[2024-02-16 17:17] LABS: ALBUMIN 4.4 g/dL (3.2-5.5); ALBUMIN/GLOBULIN RATIO 1.4 (1.0-2.2); BILIRUBIN,TOTAL 0.4 mg/dL (0.2-1.0); CALCIUM 9.5 mg/dL (8.5-10.3); CREATININE 0.6 mg/dL (0.6-1.3); POTASSIUM 4.1 mmol/L (3.5-4.5); TOTAL PROTEIN 7.5 g/dL (6.4-8.9)
[2024-02-16 17:18] VITALS: BP 104/74; O2SAT 100
== END 2024-02-16 17:11 | disposition home or self-care (01) ==
LOC: ED 13:30
DX: T78.00XA Anaphylactic reaction due to unspecified food, initial encounter (principal); X58.XXXA Exposure to other specified factors, initial encounter
CPT/HCPCS: 36415; 80053; 83690; 85025; 94640; 96372; 96374; 99291; A9270; 80306; 81001; 81003; 81025; 87086